=== PATIENT | male | born 1970 | race Caucasian/White ===

== ENCOUNTER 2018-12-08 01:50 | Outpatient (CLI) | payer SELFPAY ==
--- NOTE | 2018-12-08 10:55 | PFT_ITS ---
DECEMBER 08, 2018 REQUESTING PROVIDER: Emma Tobias SPIROMETRY: Shows mild obstructive airways disease with no significant bronchodilator response. LUNG VOLUME: Shows no evidence of restriction. DIFFUSION CAPACITY: Elevated. AIRWAYS RESISTANCE: Elevated. IMPRESSION: Mild obstructive airways disease with no significant bronchodilator response. This is associated with elevated diffusion capacity. This constellation of findings can be seen in asthma. If the diagnosis of asthma is in question proceeding with Methacholine challenge testing may prove to be useful. This study was compared to 08/29/15. The patient has a 290 cc. improvement in FVC. FEV1 has improved by 150 cc.
[2018-12-08] MEDS: Inhaler, Assist Device 1 EACH MC (13:30)
[2018-12-08] MEDS: Albuterol HFA 18 GM 200 PUFF INH IH (13:30)
== END 2018-12-08 02:10 ==
PROVIDERS: PCP Physician Assistant Medical; Visit Provider Physician Assistant Medical
DX: R07.9 Chest pain, unspecified (principal); F17.210 Nicotine dependence, cigarettes, uncomplicated
CPT/HCPCS: 94060; 94150; 94726; 94729

== ENCOUNTER → 2020-03-13 16:25 | Outpatient (REF) | payer SELFPAY ==
[2020-03-13 20:25] LABS: Hemoglobin A1C 10.7 % (<5.7)
[2020-03-13 20:43] LABS: ALT 45 U/L (16-63); AST 29 U/L (15-37); Albumin 3.4 g/dL (3.4-5.0); Alkaline Phosphatase 73 U/L (46-116); Anion Gap 7.7 mmol/L (3-11); BUN 13 mg/dL (7-18); Bilirubin, Total 0.4 mg/dL (0.2-1.0); CO2 27.3 mmol/L (21.0-32.0); CREATININE 0.84 mg/dL (0.70-1.30); Calcium 8.5 mg/dL (8.5-10.1); Calculated LDL 92 mg/dL (<100); Chloride 99 mmol/L (98-107); Cholesterol 162 mg/dL (<200); Glucose 405 mg/dL (74-106); HDL Cholesterol 27 mg/dL (40-60); Potassium 4.2 mmol/L (3.5-5.1); Sodium 134 mmol/L (136-145); Total Protein 6.7 g/dL (6.4-8.2); Triglyceride 219 mg/dL (<150)
== END ==
LOC: NCHCN 16:25
PROVIDERS: PCP Physician Assistant Medical; Visit Provider Physician Assistant Medical
DX: E11.9 Type 2 diabetes mellitus without complications (principal)
CPT/HCPCS: 80053; 80061; 83036

== ENCOUNTER 2021-01-31 15:22 | Outpatient (REF) | payer OTHER, SELFPAY ==
[2021-01-31 16:23] LABS: Abs Immature Grans 0.07 10^3/uL (0.0-0.06); Absolute Basophil Count 0.09 10^3/uL (0.0-0.2); Absolute Eosinophil Count 0.27 10^3/uL (0.0-0.7); Absolute Lymphocyte Count 1.69 10^3/uL (1.2-3.4); Absolute Monocyte Count 0.63 10^3/uL (0.1-0.8); Absolute Neutrophil Count 6.93 10^3/uL (1.2-6.7); Basophils % 0.9; Eosinophils % 2.8; HCT 44.7 % (40.0-50.0); HGB 14.4 g/dL (13.5-17.5); Immature Grans % 0.7; Lymphocytes % 17.5; MCH 27.2 pg (27.0-33.0); MCHC 32.2 % (32.0-36.0); MCV 84.5 fL (80-95); MPV 10.6 fL (8.0-11.0); Monocytes % 6.5; Neutrophils % 71.6; Nucleated RBC 0 %; Platelet Count 207 10^3/uL (130-400); RBC 5.29 10^6/uL (4.36-5.78); RDW 13.2 % (11.8-14.1); RDW-SD 40.7 fL; WBC 9.68 10^3/uL (4.4-10.8)
[2021-01-31 16:32] LABS: ALT 22 U/L (16-63); AST 17 U/L (15-37); Albumin 3.2 g/dL (3.4-5.0); Alkaline Phosphatase 69 U/L (46-116); Anion Gap 6.2 mmol/L (3-11); BUN 18 mg/dL (7-18); Bilirubin, Total 0.4 mg/dL (0.2-1.0); CO2 28.8 mmol/L (21.0-32.0); CREATININE 0.8 mg/dL (0.70-1.30); Calcium 8.5 mg/dL (8.5-10.1); Chloride 101 mmol/L (98-107); Glucose 303 mg/dL (74-106); Potassium 4.6 mmol/L (3.5-5.1); Sodium 136 mmol/L (136-145); Total Protein 6.7 g/dL (6.4-8.2)
== END 2021-01-31 15:23 | disposition home or self-care (01) ==
LOC: NCHCN 15:22
PROVIDERS: PCP Physician Assistant Medical; Visit Provider Physician Assistant Medical
DX: R13.10 Dysphagia, unspecified (principal)
CPT/HCPCS: 80053; 85025

== ENCOUNTER 2021-06-03 09:29 | Outpatient (CLI) | payer MEDICAID, SELFPAY ==
[2021-06-03 09:43] LABS: CREATININE 0.8 mg/dL (0.70-1.30)
== END 2021-06-03 09:30 | disposition home or self-care (01) ==
LOC: LBO 09:36
PROVIDERS: PCP Physician Assistant Medical; Visit Provider Preventive Medicine Undersea and Hyperbaric Medicine
DX: C32.1 Malignant neoplasm of supraglottis (principal)
CPT/HCPCS: 36415; 82565

== ENCOUNTER 2021-08-13 14:50 | Outpatient (REF) | payer MEDICAID, SELFPAY ==
[2021-08-13 16:21] LABS: HCT 44.2 % (40.0-50.0); HGB 14.8 g/dL (13.5-17.5); MCH 28.2 pg (27.0-33.0); MCHC 33.5 % (32.0-36.0); MCV 84 fL (80-95); MPV 9.5 fL (8.0-11.0); Platelet Count 197 10^3/uL (130-400); RBC 5.24 10^6/uL (4.36-5.78); RDW 13.3 % (11.8-14.1); RDW-SD 40.9 fL; WBC 5.93 10^3/uL (4.4-10.8)
[2021-08-13 16:34] LABS: Hemoglobin A1C 7.2 % (<5.7)
[2021-08-13 17:24] LABS: ALT 24 U/L (16-63); AST 23 U/L (15-37); Albumin 3.5 g/dL (3.4-5.0); Alkaline Phosphatase 52 U/L (46-116); Anion Gap 6.5 mmol/L (3-11); BUN 8 mg/dL (7-18); Bilirubin, Total 0.4 mg/dL (0.2-1.0); CO2 29.5 mmol/L (21.0-32.0); CREATININE 0.9 mg/dL (0.70-1.30); Calcium 8.5 mg/dL (8.5-10.1); Chloride 99 mmol/L (98-107); Glucose 257 mg/dL (74-106); Potassium 3.8 mmol/L (3.5-5.1); Sodium 135 mmol/L (136-145); TSH (W/Ref FT4) 3.75 uIU/mL (0.36-3.74); Total Protein 7.8 g/dL (6.4-8.2)
== END 2021-08-13 14:51 | disposition home or self-care (01) ==
LOC: NCHCN 14:50
PROVIDERS: PCP Physician Assistant Medical; Visit Provider Physician Assistant Medical
DX: I10 Essential (primary) hypertension (principal); E11.9 Type 2 diabetes mellitus without complications
CPT/HCPCS: 80053; 85027; 83036; 84439; 84443

== ENCOUNTER 2021-09-29 15:23 | Outpatient (REF) | payer MEDICAID, SELFPAY ==
[2021-09-29 16:42] LABS: TSH (W/Ref FT4) 10.98 uIU/mL (0.36-3.74)
[2021-09-29 17:15] LABS: FREE T4 0.77 ng/dL (0.76-1.46)
== END 2021-09-29 15:24 | disposition home or self-care (01) ==
LOC: NCHCN 15:23
PROVIDERS: PCP Physician Assistant Medical; Visit Provider Physician Assistant Medical
DX: I10 Essential (primary) hypertension (principal); E11.9 Type 2 diabetes mellitus without complications
CPT/HCPCS: 84439; 84443

== ENCOUNTER 2021-10-27 18:10 | Outpatient (REF) | payer MEDICAID, SELFPAY ==
[2021-10-27 16:31] LABS: CREATININE 0.8 mg/dL (0.70-1.30); Estimated GFR 108.49 (mL/min/1.73m2)
== END 2021-10-27 18:11 | disposition home or self-care (01) ==
LOC: NCHCN 18:10
PROVIDERS: PCP Physician Assistant Medical; Visit Provider Preventive Medicine Undersea and Hyperbaric Medicine
DX: C32.1 Malignant neoplasm of supraglottis (principal)
CPT/HCPCS: 82565

== ENCOUNTER 2021-12-24 16:26 | Outpatient (REF) | payer MEDICAID, SELFPAY ==
[2021-12-24 15:14] LABS: Abs Immature Grans 0.06 10^3/uL (0.0-0.06); Absolute Basophil Count 0.07 10^3/uL (0.0-0.2); Absolute Eosinophil Count 0.29 10^3/uL (0.0-0.7); Absolute Lymphocyte Count 1.08 10^3/uL (1.2-3.4); Absolute Monocyte Count 0.52 10^3/uL (0.1-0.8); Absolute Neutrophil Count 4.77 10^3/uL (1.2-6.7); Eosinophils % 4.3; HCT 44.6 % (40.0-50.0); HGB 14.9 g/dL (13.5-17.5); Immature Grans % 0.9; Lymphocytes % 15.9; MCHC 33.4 % (32.0-36.0); MCV 84 fL (80-95); MPV 9.7 fL (8.0-11.0); Monocytes % 7.7; Neutrophils % 70.2; Platelet Count 213 10^3/uL (130-400); RBC 5.32 10^6/uL (4.36-5.78); RDW 13.2 % (11.8-14.1); RDW-SD 40.7 fL; WBC 6.79 10^3/uL (4.4-10.8)
[2021-12-24 15:52] LABS: ALT 32 U/L (16-63); AST 20 U/L (15-37); Albumin 3.6 g/dL (3.4-5.0); Alkaline Phosphatase 57 U/L (46-116); Anion Gap 6.2 mmol/L (3-11); BUN 17 mg/dL (7-18); Bilirubin, Total 0.4 mg/dL (0.2-1.0); CO2 29.8 mmol/L (21.0-32.0); CREATININE 0.8 mg/dL (0.70-1.30); Chloride 101 mmol/L (98-107); Estimated GFR 108.49 (mL/min/1.73m2); Glucose 200 mg/dL (74-106); Potassium 4.1 mmol/L (3.5-5.1); Sodium 137 mmol/L (136-145); TSH 7.35 uIU/mL (0.36-3.74)
== END 2021-12-24 16:27 | disposition home or self-care (01) ==
LOC: NCHCN 16:26
PROVIDERS: PCP Physician Assistant Medical; Visit Provider Physician Assistant Medical
DX: E03.9 Hypothyroidism, unspecified (principal); I10 Essential (primary) hypertension; C32.1 Malignant neoplasm of supraglottis
CPT/HCPCS: 80053; 84443; 85025

== ENCOUNTER → 2021-12-25 02:44 | Outpatient (CLI) | payer MEDICAID, SELFPAY ==
--- NOTE | 2021-12-25 | DI.RAD_ITS ---
Exam(s) XR KNEE LT 3V AP,LAT,ROSELINE EXAM: XR KNEE LT 3V AP,LAT,ROSELINE CLINICAL HISTORY: LT KNEE PAIN, M25.562. TECHNIQUE: 2D digital imaging was performed of the left knee. Three images were obtained. Merchant ,AP, lateral and PA tunnel views were obtained. COMPARISON: No exams were available for comparison FINDINGS: BONES: No acute fracture is present. No bony destructive lesion is seen. JOINTS: Tricompartment degenerative changes are seen with joint space narrowing and periarticular spu rring. The findings are most marked in the medial femoral tibial joint. No joint effusion is seen. SOFT TISSUE: Normal. IMPRESSION: Mild degenerative changes of the left knee. DATA REPOSITORY: RADIATION DOSE DELIVERED:
== END ==
PROVIDERS: PCP Physician Assistant Medical; Visit Provider Physician Assistant Medical
DX: M17.12 Unilateral primary osteoarthritis, left knee (principal)
CPT/HCPCS: 73562

== ENCOUNTER 2022-01-22 15:03 | Emergency (ER) | payer MEDICAID, SELFPAY ==
[2022-01-22 15:28] VITALS: BP 152/104; PULSE 97; TEMP 36.9; O2SAT 99
--- NOTE | 2022-01-22 18:30 | DI.CT_ITS ---
Exam(s) CT NECK W EXAM: CT NECK W CLINICAL HISTORY: Trach infection. TECHNIQUE: Imaging Protocol: Axial computed tomography images with coronal and sagittal reformatted images were created and reviewed. CONTRAST MATERIAL: Intravenous: Omnipaque 350 Contrast volume:100mL COMPARISON: No exams were available for comparison FINDINGS: Orbits and orbital soft tissues: Within normal limits. Visualized paranasal sinuses: There is mild mucosal thickening in the left sphenoid sinus, a few eth moid air cells and the left frontal sinus. The remaining visualized paranasal sinuses are clear. Th e left mastoid air cells are clear. There is fluid seen in several right mastoid air cells. Nasopharynx: Within normal limits. Oropharynx: Within normal limits. Hypopharynx: Within normal limits. Larynx: Status post laryngectomy. The supraglottic larynx is severely narrowed and 5th with thicken ed soft tissue. Retropharyngeal space: Within normal limits. Parotids/submandibular: Within normal limits. Thyroid gland: The thyroid gland is not visualized. Lymphadenopathy: There is scattered lymph nodes seen along the level one to level three all measurin g less than 8 mm in short axis diameter which are physiologic in nature. Trachea: Within normal limits. Lung apices: Within normal limits. Bones: Within normal limits for the patient's age. Carotids/Jugular: Within normal limits. Atherosclerosis is present. Soft tissues: No focal fluid collection is seen to suggest an abscess. There is edema seen in the soft tissues around the stoma. No focal fluid collection is seen. IMPRESSION: 1. Postsurgical changes in the neck. The tracheostomy tube has been removed. There is a infiltratio n in the soft tissues around the stoma without a focal fluid collection to suggest an abscess. This may represent cellulitis. 2. Severe narrowing of the supraglottic larynx. The soft tissue appears thickened around the region. Inflammation/infection should be considered. RADIATION DOSE DELIVERED: 549.04mGy.cm Total DLP 549.04mGy.cm Total DLP DATA REPOSITORY: All CT scans at this facility are submitted to the National Radiology Data Registry (NRDR) Dose Index Registry (DIR) with the [employer] (A[employer]). RADIATION OPTIMIZATION: All CT scans at this facility use at least one of these dose optimization te chniques: automated exposure control; mA and/or kV adjustment per patient size (includes targeted exa ms where dose is matched to clinical indication); or iterative reconstruction.
--- NOTE | 2022-01-22 18:30 | DI.RAD_ITS ---
Exam(s) XR CHEST 2V PA LATERAL EXAM: XR CHEST 2V PA LATERAL CLINICAL HISTORY: cough TECHNIQUE: 2D digital imaging was performed of the chest. Two images were obtained. PA and lateral views were obtained. COMPARISON: No exams were available for comparison FINDINGS: MEDIASTINUM: Normal. HEART: Normal. PULMONARY VASCULATURE: Normal. LUNGS: Clear. PLEURAL SPACE: No pleural effusion or pneumothorax. BONE:Within normal limits for the patient's age. OTHER FINDINGS:Normal. IMPRESSION: No acute pulmonary findings. DATA REPOSITORY: RADIATION DOSE DELIVERED:
[2022-01-22 19:41] LABS: Abs Immature Grans 0.07 10^3/uL (0.0-0.06); Absolute Basophil Count 0.08 10^3/uL (0.0-0.2); Absolute Eosinophil Count 0.32 10^3/uL (0.0-0.7); Absolute Lymphocyte Count 1.11 10^3/uL (1.2-3.4); Absolute Monocyte Count 0.51 10^3/uL (0.1-0.8); Absolute Neutrophil Count 5.03 10^3/uL (1.2-6.7); Basophils % 1.1; Eosinophils % 4.5; HCT 45.4 % (40.0-50.0); Lymphocytes % 15.6; MCH 27.9 pg (27.0-33.0); MCV 85 fL (80-95); MPV 9.2 fL (8.0-11.0); Monocytes % 7.2; Neutrophils % 70.6; Platelet Count 214 10^3/uL (130-400); RBC 5.37 10^6/uL (4.36-5.78); RDW 13.2 % (11.8-14.1); RDW-SD 40.6 fL; WBC 7.12 10^3/uL (4.4-10.8)
[2022-01-22 19:56] LABS: ALT 37 U/L (16-63); AST 28 U/L (15-37); Albumin 3.8 g/dL (3.4-5.0); Alkaline Phosphatase 52 U/L (46-116); Anion Gap 5.9 mmol/L (3-11); BUN 12 mg/dL (7-18); Bilirubin, Total 0.7 mg/dL (0.2-1.0); CO2 34.1 mmol/L (21.0-32.0); CREATININE 0.9 mg/dL (0.70-1.30); Calcium 8.5 mg/dL (8.5-10.1); Chloride 98 mmol/L (98-107); Glucose 157 mg/dL (74-106); Magnesium 1.9 mg/dL (1.8-2.4); Potassium 3.8 mmol/L (3.5-5.1); Sodium 138 mmol/L (136-145); Total Protein 8.3 g/dL (6.4-8.2)
[2022-01-22] MEDS: Omnipaque 350 MG/ML 100 ML BTL IJ (19:57)
[2022-01-22] MEDS: Normal Saline - Diluent 50 ML VIAL IJ (19:58)
[2022-01-22 20:02] LABS: COVID-19 PCR Negative (Negative); Influenza A PCR Negative (Negative); Influenza B PCR Negative (Negative); RSV PCR Negative (Negative)
[2022-01-22 20:11] LABS: Source Nasopharynx
--- NOTE | 2022-01-22 20:18 | DI.VRAD_ITS ---
PROCEDURE INFORMATION: Exam: XR Chest Exam date and time: 01/22/2022 7:58 PM Age: 51 years old Clinical indication: Cough TECHNIQUE: Imaging protocol: Radiologic exam of the chest. Views: 2 views. COMPARISON: CT NECK W 01/22/2022 7:54 PM FINDINGS: Lungs: Unremarkable. No consolidation. Pleural spaces: Unremarkable. No pleural effusion. No pneumothorax. Heart/Mediastinum: Unremarkable. No cardiomegaly. Bones/joints: Unremarkable. IMPRESSION: No acute findings. Dictated and Authenticated by: Lawrence Oseguera MD. Ordering:PJ Waters MD
--- NOTE | 2022-01-22 20:19 | DI.VRAD_ITS ---
PROCEDURE INFORMATION: Exam: CT Neck With Contrast Exam date and time: 01/22/2022 7:54 PM Age: 51 years old Clinical indication: Other: Trach infection; Prior surgery; Surgery date: 6+ months TECHNIQUE: Imaging protocol: Computed tomography of the neck with contrast. Radiation optimization: All CT scans at this facility use at least one of these dose optimization techniques: automated exposure control; mA and/or kV adjustment per patient size (includes targeted exams where dose is matched to clinical indication); or iterative reconstruction. Contrast material: OMNI 350; Contrast volume: 100 ml; Contrast route: INTRAVENOUS (IV); COMPARISON: No relevant prior studies available. FINDINGS: Pharynx: No significant tonsillar enlargement. Larynx: Supraglottic larynx is severely narrowed and thickened. Epiglottis not well visualized Prevertebral and retropharyngeal spaces: Small retropharyngeal edema versus fluid Salivary glands: Normal. Glands are normal in size. Thyroid: Normal. No enlarged or calcified nodules. Lymph nodes: Unremarkable. No lymphadenopathy. Trachea: Stoma appears grossly patent with abnormal thickening along the superior anterior margin extending posteriorly Lungs: Unremarkable as visualized. Bones/joints: Unremarkable. No acute fracture. Soft tissues: Unremarkable. No significant soft tissue swelling. IMPRESSION: Status post tracheostomy tube removal with infiltration/cellulitis involving the anterior superior soft tissues extending posteriorly. Small edema versus fluid in the retropharyngeal space. Developing retropharyngeal abscess can not be completely excluded Supraglottic larynx limited in evaluation as described Dictated and Authenticated by: Lawrence Oseguera MD. Ordering:PJ Waters MD
[2022-01-22] MEDS: Normal Saline 1,000 ML 1000 ML IV (20:27)
[2022-01-22] MEDS: Ketorolac 15 MG/ML VIAL IVP (20:28)
[2022-01-22 22:33] LABS: ESR 36 mm/hr (0-15)
[2022-01-22] MEDS: levoFLOXacin 750 MG/150 ML BAG 100 MG IVPB (22:44)
--- NOTE | 2022-01-22 22:52 | ED.GENADUL_ITS ---
Discharge Plan Disposition Patient Disposition: Home Condition: Stable Discharge Details Clinical Impression: Infection of tracheostomy stoma Primary Care Provider: Weston Tobias ED Provider: Jt Ross Home Meds and New Rx's Prescriptions: Continued acetaminophen 325 mg capsule 650 mg PO Q6H PRN metformin 1,000 mg tablet 1,000 mg PO BID lisinopril 20 mg tablet 20 mg PO DAILY gabapentin [Neurontin] 300 mg capsule 300 mg PO TID levothyroxine [Synthroid] 88 mcg tablet 88 mcg PO DAILY Discharge Instructions Instructions: Cellulitis (ED) Additional Instructions: Please closely monitor your symptoms and if you have any significant worsening of your condition return immediately to the emergency department for reassessment. Otherwise take your antibiotic and normal prescribed medications. [facility] will contact you for follow-up with you at the ENT office for reassessment of your infection. Referrals: [facility] [Outside] Discharge Data Discharge Date/Time-TO BE ENTERED AT DEPARTURE: 01/23/22 00:38 Medical Decision Making Patient presenting to the emergency department for chief complaint of stoma site infection. He states over the past 5 days he has started noticing redness and irritation and also starting to have a productive cough. He does state some radiating pain up the left side of his face into his roman catholic and forehead. He associates this more with the stoma infection than secondary findings. Physical exam shows an erythematous stoma with slight mucus noted on the edges. No severe erosion of the site, patient has no nuchal rigidity, HEENT exam is otherwise unremarkable along with neurological exam. We will plan on checking labs, chest x-ray, COVID flu RSV, and CT of the neck. Reviewed CBC and patient has no significant leukocytosis or shift, CMP he is also unremarkable overall but glucose is 157 which I am not concerned with, COVID flu RSV is negative. I did perform ESR due to patient stating pain to the temporal region result was 36 which I feel is reassuring and doubt temporal arteritis. chest x-ray shows no acute findings CT of the neck is concerning for surrounding cellulitis involving the anterior superior tissues but also some extension posterior. There is small edema versus fluid in the retropharyngeal space. Radiologist did mention possible retropharyngeal abscess that cannot be completely excluded. Did consult with [facility] ENT provider. Upon discussion of case with them we agreed upon plan of care for patient to receive initial dose of Levaquin in the emergency department and be placed up on Levaquin outpatient. Patient will follow-up with their clinic and have low threshold to return the emergency department for new or worsening symptoms. After discussion of diagnosis and plan of care patient has no further needs, questions, or concerns and states clear understanding to return to the emergency department for any worsening symptoms. This documentation was generated using [employer] dictation system, please disregard any oddities of phrase or misspellings. Sign Out No HPI General Mode of arrival: ambulatory . Date/Time Provider Initiated Documentation: 01/22/22 16:21 . Limitations to Documentation: no limitations . Information obtained by: patient, family and RN notes reviewed . History of Present Illness 51 year old M presents to the emergency department with the chief complaint of neck infection , described as moderate and similar to prior episodes, Quality is described as aching, and is localized to the neck. Patient started experiencing this day(s) (5) and it has been constant. No relieving factors improve symptom(s), No exacerbating factors reported . Patient notes headaches. Patient did receive the following treatments prior to arrival, none Related Data Home Medications Medication Instructions Recorded Confirmed acetaminophen 325 mg capsule 650 mg PO Q6H PRN 12/31/21 01/22/22 gabapentin 300 mg capsule 300 mg PO TID 12/31/21 01/22/22 (Neurontin) levothyroxine 88 mcg tablet 88 mcg PO DAILY 12/31/21 01/22/22 (Synthroid) lisinopril 20 mg tablet 20 mg PO DAILY 12/31/21 01/22/22 metformin 1,000 mg tablet 1,000 mg PO BID 12/31/21 01/22/22 Allergies Allergy/AdvReac Type Severity Reaction Status Date / Time No Known Allergies Allergy Verified 01/22/22 18:17 General Stated Complaint: GenMedical MARV: 4 Review of Systems Constitutional Constitutional: Denies chills, Denies fever(s), Reports headache(s) and Reports malaise Eyes Eyes: Reports blurry vision ENT Ears, Nose, Mouth, and Throat: Reports as per HPI, Reports headache(s), Denies nasal congestion, Reports neck pain and Denies sore throat Cardiovascular Cardiovascular: Denies chest pain and Denies dyspnea Respiratory Respiratory: Reports cough and Denies dyspnea Gastrointestinal Gastrointestinal: Reports system reviewed and no additional complaints, except as documented Genitourinary Genitourinary: Reports system reviewed and no additional complaints, except as documented Musculoskeletal Musculoskeletal: Reports neck pain Integumentary/Breasts Skin/Breast: Reports erythema Neurologic Neurologic: Reports headache(s) PFSH All Active Problems (Updated 01/22/22 @ 23:05 by Jt Ross NP) Infection of tracheostomy stoma (Acute) Medical History Chest pain Diabetes mellitus HTN (hypertension) Hypothyroidism Laryngeal cancer Morbid obesity LARON (obstructive sleep apnea) Tobacco use Social History Smoking risk assessment performed?: No Do you feel safe at home: Yes Do you feel safe in your relationship?: Yes Exam Const General: cooperative, no acute distress and well groomed Orientation: alert, awake and oriented x3 HENMT Head: normal to inspection Ears: hearing grossly normal bilaterally and TM's normal bilaterally Mouth: oral mucosae normal and moist mucous membranes Throat: posterior oropharynx normal Eyes Visual Holt: normal visual holt by confrontation Alignment and Position: alignment normal Periorbital: periorbital findings normal Eyelids: eyelids normal Sclera: sclerae normal Cornea: corneas normal Pupils: PERRL EOM: EOM intact bilaterally Neck Neck: full ROM, no meningeal signs, trachea midline and other (Stoma present with erythema surrounding and mild drainage) Resp Effort & Inspection: normal respiratory effort Auscultation: clear to auscultation bilaterally Cardio Rate: regular rate Rhythm: regular rhythm Heart Sounds: S1 normal and S2 normal Neuro General: patient alert, patient awake, patient oriented x3, gait normal, tone normal, moves all extremities, CN's II-XI intact bilaterally and not confused Cognition: normal cognition Motor: muscle tone normal throughout, strength 5/5 throughout, no movement abnormalities noted and no fasciculations Sensory Exam: no sensory deficits noted Course Vital Signs Vital signs: Vital Signs Temperature 36.9 C 01/22/22 15:28 Pulse 97 H 01/22/22 15:28 Blood Pressure 152/104 H 01/22/22 15:28 Pulse Oximetry 99 01/22/22 15:28 Temperature 36.9 C 01/22/22 15:28 Pulse 97 H 01/22/22 15:28 Blood Pressure 152/104 H 01/22/22 15:28 Blood Pressure Position Sitting 01/22/22 15:28 Pulse Oximetry 99 01/22/22 15:28 Oxygen Delivery Method Room Air 01/22/22 15:28 Oxygen Flow Rate 0 01/22/22 15:28 Pain Level 8 01/22/22 15:28 Lab/Test Results Lab/Test Results: 01/22/22 20:57 Blood Blood Culture - Pending 01/22/22 19:30 Blood Blood Culture - Pending Laboratory Tests Range/Units 01/22/22 01/22/22 01/22/22 19:15 19:30 19:30 WBC (4.4-10.8) 10^3/uL 7.12 RBC (4.36-5.78) 10^6/uL 5.37 Hgb (13.5-17.5) g/dL 15.0 Hct (40.0-50.0) % 45.4 MCV (80-95) fL 85 MCH (27.0-33.0) pg 27.9 MCHC (32.0-36.0) % 33.0 RDW (11.8-14.1) % 13.2 Plt Count (130-400) 10^3/uL 214 MPV (8.0-11.0) fL 9.2 Immature Gran % 1.0 Neutrophils % 70.6 Lymphocytes % 15.6 Monocytes % 7.2 Eosinophils % 4.5 Basophils % 1.1 Nucleated RBC % (0.0-0.3) % 0.0 Absolute Neutrophils (1.2-6.7) 10^3/uL 5.03 Absolute Lymphocytes (1.2-3.4) 10^3/uL 1.11 L Absolute Monocytes (0.1-0.8) 10^3/uL 0.51 Absolute Eosinophils (0.0-0.7) 10^3/uL 0.32 Absolute Basophils (0.0-0.2) 10^3/uL 0.08 ESR (0-15) mm/hr Sodium (136-145) mmol/L 138 Potassium (3.5-5.1) mmol/L 3.8 Chloride (98-107) mmol/L 98 Carbon Dioxide (21.0-32.0) mmol/L 34.1 H Anion Gap (3-11) mmol/L 5.9 BUN (7-18) mg/dL 12 Creatinine (0.70-1.30) mg/dL 0.9 Est GFR (CKD-EPI 2020) (mL/min/1.73m2) 104.70 Glucose (74-106) mg/dL 157 H Calcium (8.5-10.1) mg/dL 8.5 Magnesium (1.8-2.4) mg/dL 1.9 Total Bilirubin (0.2-1.0) mg/dL 0.7 AST (15-37) U/L 28 ALT (16-63) U/L 37 Alkaline Phosphatase (46-116) U/L 52 Total Protein (6.4-8.2) g/dL 8.3 H Albumin (3.4-5.0) g/dL 3.8 COVID-19 Source Nasopharynx SARS-CoV-2 (PCR) (Negative) Negative Influenza Type A (PCR) (Negative) Negative Influenza Type B (PCR) (Negative) Negative RSV (PCR) (Negative) Negative Range/Units 01/22/22 19:30 WBC (4.4-10.8) 10^3/uL RBC (4.36-5.78) 10^6/uL Hgb (13.5-17.5) g/dL Hct (40.0-50.0) % MCV (80-95) fL MCH (27.0-33.0) pg MCHC (32.0-36.0) % RDW (11.8-14.1) % Plt Count (130-400) 10^3/uL MPV (8.0-11.0) fL Immature Gran % Neutrophils % Lymphocytes % Monocytes % Eosinophils % Basophils % Nucleated RBC % (0.0-0.3) % Absolute Neutrophils (1.2-6.7) 10^3/uL Absolute Lymphocytes (1.2-3.4) 10^3/uL Absolute Monocytes (0.1-0.8) 10^3/uL Absolute Eosinophils (0.0-0.7) 10^3/uL Absolute Basophils (0.0-0.2) 10^3/uL ESR (0-15) mm/hr 36 H Sodium (136-145) mmol/L Potassium (3.5-5.1) mmol/L Chloride (98-107) mmol/L Carbon Dioxide (21.0-32.0) mmol/L Anion Gap (3-11) mmol/L BUN (7-18) mg/dL Creatinine (0.70-1.30) mg/dL Est GFR (CKD-EPI 2020) (mL/min/1.73m2) Glucose (74-106) mg/dL Calcium (8.5-10.1) mg/dL Magnesium (1.8-2.4) mg/dL Total Bilirubin (0.2-1.0) mg/dL AST (15-37) U/L ALT (16-63) U/L Alkaline Phosphatase (46-116) U/L Total Protein (6.4-8.2) g/dL Albumin (3.4-5.0) g/dL COVID-19 Source SARS-CoV-2 (PCR) (Negative) Influenza Type A (PCR) (Negative) Influenza Type B (PCR) (Negative) RSV (PCR) (Negative)
== END 2022-01-23 00:38 | disposition home or self-care (01) ==
PROVIDERS: Emergency Provider Nurse Practitioner Family; PCP Physician Assistant Medical
DX: J95.02 Infection of tracheostomy stoma (principal); L53.9 Erythematous condition, unspecified; E11.9 Type 2 diabetes mellitus without complications; I10 Essential (primary) hypertension; Z20.822 Contact with and (suspected) exposure to COVID-19; Z79.84 Long term (current) use of oral hypoglycemic drugs
CPT/HCPCS: 70491; 80053; 85652; 87040; 87637; 96361; 96365; 96375; 99285; 71046; 83735; 85025; 99284; J1885; J1956; J3490

== ENCOUNTER 2022-02-24 16:06 | Outpatient (REF) | payer MEDICAID, SELFPAY ==
[2022-02-24 20:14] LABS: Hemoglobin A1C 7.7 % (<5.7)
== END 2022-02-24 16:07 | disposition home or self-care (01) ==
LOC: NCHCN 16:06
PROVIDERS: PCP Physician Assistant Medical; Visit Provider Physician Assistant Medical
DX: E11.9 Type 2 diabetes mellitus without complications (principal); E03.9 Hypothyroidism, unspecified
CPT/HCPCS: 83036; 84443

== ENCOUNTER 2022-03-05 09:42 | Outpatient (REF) | payer MEDICAID, SELFPAY ==
[2022-03-05 15:29] LABS: Abs Immature Grans 0.06 10^3/uL (0.0-0.06); Absolute Basophil Count 0.07 10^3/uL (0.0-0.2); Absolute Eosinophil Count 0.25 10^3/uL (0.0-0.7); Absolute Lymphocyte Count 1.02 10^3/uL (1.2-3.4); Absolute Monocyte Count 0.34 10^3/uL (0.1-0.8); Absolute Neutrophil Count 4.01 10^3/uL (1.2-6.7); Basophils % 1.2; Eosinophils % 4.3; HCT 40.2 % (40.0-50.0); HGB 13.3 g/dL (13.5-17.5); Lymphocytes % 17.7; MCH 28.5 pg (27.0-33.0); MCHC 33.1 % (32.0-36.0); MCV 86 fL (80-95); MPV 9.9 fL (8.0-11.0); Monocytes % 5.9; Neutrophils % 69.9; Platelet Count 206 10^3/uL (130-400); RBC 4.67 10^6/uL (4.36-5.78); RDW 13.2 % (11.8-14.1); WBC 5.75 10^3/uL (4.4-10.8)
[2022-03-05 15:32] LABS: ESR 26 mm/hr (0-15)
[2022-03-05 15:45] LABS: C-Reactive Protein 0.37 mg/dL (0.0-0.3)
== END 2022-03-05 09:43 | disposition home or self-care (01) ==
LOC: NCHCN 09:42
PROVIDERS: PCP Physician Assistant Medical; Visit Provider Physician Assistant Medical
DX: L03.818 Cellulitis of other sites (principal)
CPT/HCPCS: 85652; 85025; 86140

== ENCOUNTER 2022-04-02 00:11 | Outpatient (CLI) | payer MEDICAID, SELFPAY ==
--- NOTE | 2022-04-02 | DI.MRI_ITS ---
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 COMPARISON: MR MR BRAIN WO/W from 04/02/2022 FINDINGS: ORBITS: The anterior and posterior chambers of the globes are intact. The retrobulbar fat is unremark able. Extraocular muscles are unremarkable. OPTIC NERVES: The intracranial and extracranial portions of the optic nerves are within normal limits . Optic chiasm is within normal limits. No MRI evidence of optic neuritis identified. OTHER: Lacrimal glands unremarkable. PITUITARY GLAND: Not enlarged. Indeed the pituitary gland appears somewhat confined to the floor of the sella which probably indicates an element of empty sella syndrome. There is no mass in the pitui tary and suprasellar cistern.. The infundibulum is midline. Cavernous sinuses unremarkable No aneurysms seen. Incidentally noted is a posterior communicating artery on the right side of the c [id number] which is the main supplier of the right posterior cerebral artery. Left posterior ce rebral artery arises in conventional fashion off the tip of the basilar artery. Incidentally noted is some mucosal thickening in the left frontoethmoidal recess. IMPRESSION: Unremarkable MRI of the orbits. The pituitary gland is noted to be confined to the floor of the sella turcica. This probably indicat es an element of empty sella syndrome. DATA REPOSITORY:
--- NOTE | 2022-04-02 | DI.MRI_ITS ---
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 Both noninfused and contrast i nfused sequences were performed. IV Contrast injected was 20 cc Dotarem. COMPARISON: No exams were available for comparison FINDINGS: CEREBRAL PARENCHYMA: No evidence of intracranial hemorrhage, mass effect nor shift of midline structu re. No extraaxial fluid collections. Ventricles are not enlarged nor shifted. There is no significant focal signal abnormality in the cerebellar hemispheres nor within the tita, m idbrain, and thalami. There are multiple sub cm FLAIR bright white matter foci in the periventricular and subcortical white matter, these not associated with hemorrhage nor surrounding edema nor enhancement following contras t injection and are unlikely to be metastatic. There are no ring enhancing lesions in the brain and there is no abnormal meningeal enhancement, focal nor diffuse. DWI: No areas of restricted diffusion to suggest acute ischemic event. SWI: No microhemorrhages evident. PITUITARY GLAND: No mass nor parasellar abnormality. No obvious abnormality in the cavernous sinuses. FLOW VOIDS: The expected flow void are noted. No evidence of obvious aneurysm nor obvious vascular ma lformation. PARANASAL SINUSES: Some mucosal thickening noted at the left fronto ethmoidal recess. ORBITS: See separate dedicated orbit MRI report. IMPRESSION: 1. No evidence of ring-enhancing lesions nor meningeal enhancement to suggest intracranial metastatic disease. 2. Multiple foci of nonspecific signal abnormality in the white matter bilaterally but not associated with hemorrhage or surrounding edema nor enhancement and are probably related to chronic ischemic ch anges and not metastatic disease. 3. This patient also had dedicated MRI of the orbits today. Please see that separate report. DATA REPOSITORY:
[2022-04-02] MEDS: Gadoterate meglumine 20 ML VIAL IVP (10:03)
[2022-04-02] MEDS: Normal Saline Flush 10 ML SYR IVP (10:04)
--- NOTE | 2022-04-02 15:49 | DI.VRAD_ITS ---
PROCEDURE INFORMATION: Exam: MR Orbit Without and With Contrast Exam date and time: 04/02/2022 9:04 AM Age: 51 years old Clinical indication: Other: Visual complaint h53.9 laryngeal cancer c32.1 TECHNIQUE: Imaging protocol: MR Orbit was performed without and with contrast. Contrast material: DOTAREM; Contrast volume: 20 ml; Contrast route: INTRAVENOUS (IV); COMPARISON: CT NECK W 01/22/2022 7:54 PM FINDINGS: Orbital cavities: Orbits are normal. Globes are unremarkable. Paranasal sinuses: Unremarkable. No air-fluid levels. Soft tissues: Unremarkable. IMPRESSION: Unremarkable orbits. Dictated and Authenticated by: Aurelio Bishop MD. Ordering:DMITRIY Ontiveros MD
== END 2022-04-02 00:31 ==
LOC: DI 00:11
PROVIDERS: PCP Physician Assistant Medical; Visit Provider Physician Assistant Medical
DX: C32.1 Malignant neoplasm of supraglottis (principal)
CPT/HCPCS: 70553; 70543

== ENCOUNTER 2023-03-03 15:53 | Outpatient (REF) | payer MEDICAID, SELFPAY ==
[2023-03-03 20:00] LABS: Abs Immature Grans 0.04 10^3/uL (0.0-0.06); Absolute Basophil Count 0.09 10^3/uL (0.0-0.2); Absolute Eosinophil Count 0.11 10^3/uL (0.0-0.7); Absolute Lymphocyte Count 1.49 10^3/uL (1.2-3.4); Absolute Monocyte Count 0.51 10^3/uL (0.1-0.8); Absolute Neutrophil Count 5.45 10^3/uL (1.2-6.7); Basophils % 1.2; Eosinophils % 1.4; HCT 44.5 % (40.0-50.0); HGB 14.8 g/dL (13.5-17.5); Immature Grans % 0.5; Lymphocytes % 19.4; MCH 27.6 pg (27.0-33.0); MCHC 33.3 % (32.0-36.0); MCV 83 fL (80-95); MPV 10.2 fL (8.0-11.0); Monocytes % 6.6; Neutrophils % 70.9; Platelet Count 282 10^3/uL (130-400); RBC 5.37 10^6/uL (4.36-5.78); RDW 14.1 % (11.8-14.1); RDW-SD 41.9 fL; WBC 7.69 10^3/uL (4.4-10.8)
[2023-03-03 20:21] LABS: ALT 25 U/L (16-63); AST 21 U/L (15-37); Albumin 3.9 g/dL (3.4-5.0); Alkaline Phosphatase 54 U/L (46-116); Anion Gap 6.9 mmol/L (3-11); BUN 16 mg/dL (7-18); Bilirubin, Total 0.7 mg/dL (0.2-1.0); CO2 30.1 mmol/L (21.0-32.0); Calcium 8.8 mg/dL (8.5-10.1); Calculated LDL 16 mg/dL (<100); Chloride 99 mmol/L (98-107); Cholesterol 81 mg/dL (<200); Estimated GFR 91.69 (mL/min/1.73m2); Glucose 147 mg/dL (74-106); HDL Cholesterol 35 mg/dL (40-60); Potassium 3.4 mmol/L (3.5-5.1); Sodium 136 mmol/L (136-145); TSH 5.06 uIU/mL (0.36-3.74); Total Protein 8.1 g/dL (6.4-8.2); Triglyceride 154 mg/dL (<150)
--- OUTSIDE RECORDS SUMMARY | 2023-03-05 10:44 | XMS_ITS | Continuity of Care Document ---
Author Name [facility] Address [address] [place] [address] Encounter LTTL_SD FIN NBR [id number] Date(s): 10/03/22 - 11/28/22 [facility] [address] [place] [address] [place] Encounter Diagnosis Hypertension(Discharge Diagnosis) - 10/05/22 Diabetes(Discharge Diagnosis) - 10/05/22 Stroke(Discharge Diagnosis) - 10/05/22 Morbid obesity(Discharge Diagnosis) - 11/15/22 C. difficile colitis(Discharge Diagnosis) - 11/15/22 Acute ischemic stroke(Discharge Diagnosis) - 11/28/22 Discharge Disposition: Home w/ Home Health Care Attending Physician: Asad Troncoso MD Admitting Physician: Asad Troncoso MD Referring Physician: Asad Troncoso MD Allergies, Adverse Reactions, Alerts No Known Medication Allergies Functional Status 11/28/22 Breakfast Percent 100 11/27/22 Personal Care Provided Linen change, Helen care, Other: changed underwear 11/27/22 Activity Status ADL Up to chair 11/27/22 Lunch Percent 100 11/25/22 Dinner Percent 100 11/12/22 ADLs Minimal assistance Assistive Device Cane 11/10/22 Time Dangled at Bedside 1 Time Up in Chair 15 Ambulation Minutes 6 11/09/22 Orthopedic/Preventive Devices Splint, Other: Left forearm/wrist 10/30/22 Living Environment Home Environment *ADL: Independent Performed By: IRISH Rosa 10/05/2022 *Cognitive-Communication Skills: Independent Performed By: IRISH Rosa 10/05/2022 *Instrumental ADL: Independent Performed By: IRISH Rosa 10/05/2022 *Mobility: Independent Performed By: IRISH Rosa 10/05/2022 Lives In: Mobile home Performed By: IRISH Rosa 10/05/2022 Lives With: Alone Performed By: IRISH Rosa 10/05/2022 Living Situation: Home independently, care home facility Performed By: IRISH Rosa 10/05/2022 Number of Stairs Inside: 0 Performed By: IRISH Rosa 10/05/2022 Number of Stairs Outside: 2 Performed By: IRISH Rosa 10/05/2022 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, 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, 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, 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, Laundry, Leisure/Play/Hobbies, Manage Medications, Meal preparation, Personal ADL, Shopping, Social participation, Yard work Performed By: IRISH Rosa 10/05/2022 Lives In Mobile home Lives With Alone Living Situation Home independently, care home facility Patient's Responsibilities Rehab Communi mobility, 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, 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, 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, Laundry, Leisure/Play/Hobbies, Manage Medications, Meal preparation, Personal ADL, Shopping, Social participation, Yard work Number of Stairs Inside 0 Number of Stairs Outside 2 Prior ADL Status Independent Prior Mobility Status Independent Prior Instrumental ADL Level Independent Prior Cognitive-Communication Skills Ind ependent 10/13/22 Pressure Reducing Device for Bed Bariatr ic 10/06/22 Positioning/Pressure Reducing Devices Pi llow 10/03/22 Recent Travel History No recent travel Other exposure to Infectious Disease Non e 10/03/22 Home Barriers None Medications aspirin 81 mg oral capsule 81 mg =, Oral, Daily, # 30 cap, 0 Refill(s), Pharmacy: [id number], 183, cm, 10/03/22 12:35:00 EDT, Height/Length Dosing, 165.4, kg, 11/15/22 4:24:00 EDT, Weight Dosing Start Date: 11/28/22 Stop Date: 12/28/22 Status: Ordered atorvastatin 20 mg oral tablet 80 mg = 4 tab, Oral, every evening, # 120 tab, 0 Refill(s), Pharmacy: [id number], 183, cm, 10/03/22 12:35:00 EDT, Height/Length Dosing, 165.4, kg, 11/15/22 4:24:00 EDT, Weight Dosing Start Date: 11/28/22 Status: Ordered Brilinta (ticagrelor) 90 mg oral tablet 90 mg = 1 tab, Oral, BID, # 60 tab, 0 Refill(s), Pharmacy: [facility], 183, cm, 10/04/2311:35:00 EDT, Height/Length Dosing, 165.4, kg, 11/15/22 4:24:00 EDT, Weight Dosing Start Date: 11/28/22 Status: Ordered Glucometer Glucometer, Please provide glucometer that is covered by insurance Test blood glucose twice daily, Supply, See instructions, # 1 EA, 0 Refill(s), Pharmacy: [facility] Start Date: 11/28/22 Status: Ordered hydroCHLOROthiazide 25 mg oral tablet 25 mg = 1 tab, Oral, Daily, # 30 tab, 0 Refill(s), Pharmacy: [facility], 183, cm, 10/03/22 12:35:00 EDT, Height/Length Dosing, 165.4, kg, 11/15/22 4:24:00 EDT, Weight Dosing Start Date: 11/28/22 Status: Ordered levothyroxine 100 mcg (0.1 mg) oral tablet 100 mcg = 1 tab, Oral, Daily, TAKE 1 TABLET BY MOUTH ONCE DAILY, # 30 tab, 0 Refill(s), Pharmacy: [facility], 183, cm, 10/03/22 12:35:00 EDT, Height/Length Dosing, 165.4, kg, 11/15/22 4:24:00 EDT, Weight Dosing Start Date: 11/28/22 Status: Ordered metFORMIN 1000 mg oral tablet 1,000 mg = 1 tab, Oral, BID, TAKE 1 TABLET BY MOUTH TWICE DAILY, # 60 tab, 0 Refill(s), Pharmacy: [facility], 183, cm, 10/03/22 12:35:00 EDT, Height/Length Dosing, 165.4, kg, 11/15/22 4:24:00 EDT, Weight Dosing Start Date: 11/28/22 Status: Ordered NIFEdipine 30 mg oral tablet, extended release 60 mg = 2 cap, Oral, Daily, # 60 cap, 0 Refill(s), Pharmacy: [facility], 183, cm, 10/03/22 12:35:00 EDT, Height/Length Dosing, 165.4, kg, 11/15/22 4:24:00 EDT, Weight Dosing Start Date: 11/28/22 Status: Ordered Mental Status 11/23/22 Eye Opening Response Lincoln Spontaneous ly Best Verbal Response Lincoln Oriented Best Motor Response Lincoln Obeys comman ds Cuate Coma Score 15 Problem List Condition Confirmation Course Effective Dates Status Health St atus Informant Diabetes Confirmed Active Hypertension Confirmed Active Morbid obesity Confirmed Active Results Laboratory List Name Date Basic Metabolic Panel (BMP) 11/14/22 CBC w/ Diff 11/14/22 Magnesium Level 11/14/22 Automated Diff 11/14/22 GI Panel (BioFire) 11/13/22 Hgb A1c (Hemoglobin A1C) 11/05/22 Renal Function Panel 11/05/22 Glucose POCT 11/05/22 Glucose POCT 11/04/22 Glucose POCT 11/04/22 Basic Metabolic Panel (BMP) 10/20/22 CBC w/ Diff 10/20/22 Magnesium Level 10/20/22 Automated Diff 10/20/22 Automated Diff 10/17/22 CBC w/ Diff 10/17/22 PT/ INR 10/17/22 Most recent to oldest [Reference Range]: 1 2 3 WBC [4.8-10.8 K/mcL] 7.0 K/mcL (11/14/22 8:15 PM) 7.1 K/mcL (10/20/22 11:30 AM) 5.9 K/mcL (10/17/22 4:50 AM) RBC [4.20-6.10 Million/mcL] 4.56 Million /mcL (11/14/22 8:15 PM) 4.81 Million/mcL (10/20/22 11:30 AM) 4.55 Million/mcL (10/17/22 4:50 AM) Neutro Auto [42.2-75.2 %] 67.4 % (11/14/22 8:15 PM) 75.1 % (10/20/22 11:30 AM) 68.2 % (10/17/22 4:50 AM) Lymph Auto [20.5-51.1 %] 18.1 % *LOW* (11/14/22 8:15 PM) 14.2 % *LOW* (10/20/22 11:30 AM) 16.7 % *LOW* (10/17/22 4:50 AM) Rincon Auto [1.7-9.3 %] 6.7 % (11/14/22 8:15 PM) 5.9 % (10/20/22 11:30 AM) 7.5 % (10/17/22 4:50 AM) Basophil Auto [0.0-0.8 %] 1.3 % *HI* (11/14/22 8:15 PM) 0.8 % (10/20/22 11:30 AM) 1.4 % *HI* (10/17/22 4:50 AM) Prothrombin Time [9.1-10.6 seconds] 10.3 seconds (10/17/22 4:50 AM) INR [0.9-1.1] 1.0 1 (10/17/22 4:50 AM) BUN [8-26 mg/dL] 16 mg/dL (11/14/22 8:15 PM) 17 mg/dL (11/05/22 12:55 PM) 15 mg/dL (10/20/22 11:30 AM) Glucose POC 246 *NA* (11/05/22 7:37 AM) 194 *NA* (11/04/22 4:43 PM) 221 *NA* (11/04/22 11:11 AM) Glucose Level [74-106 mg/dL] 236 mg/dL *HI* (11/14/22 8:15 PM) 224 mg/dL *HI* (11/05/22 12:55 PM) 204 mg/dL *HI* (10/20/22 11:30 AM) Potassium Level [3.5-5.1 mmol/L] 3.7 mmol/L (11/14/22 8:15 PM) 3.7 mmol/L (11/05/22 12:55 PM) 4.2 mmol/L (10/20/22 11:30 AM) Baso Absolute [0.0-0.2 K/mcL] 0.1 K/mcL (11/14/22 8:15 PM) 0.1 K/mcL (10/20/22 11:30 AM) 0.1 K/mcL (10/17/22 4:50 AM) MCV [80.0-94.0 fL] 84.9 fL (11/14/22 8:15 PM) 86.5 fL (10/20/22 11:30 AM) 85.9 fL (10/17/22 4:50 AM) MCHC [32.0-36.0 g/dL] 33.9 g/dL (11/14/22 8:15 PM) 33.4 g/dL (10/20/22 11:30 AM) 33.0 g/dL (10/17/22 4:50 AM) Osmolality [275-295 mOsm/kg] 277 mOsm/kg (11/14/22 8:15 PM) 277 mOsm/kg (11/05/22 12:55 PM) 281 mOsm/kg (10/20/22 11:30 AM) Sodium Level [134-143 mmol/L] 134 mmol/L (11/14/22 8:15 PM) 134 mmol/L (11/05/22 12:55 PM) 137 mmol/L (10/20/22 11:30 AM) Lymph Absolute [1.2-3.4 K/mcL] 1.3 K/mcL (11/14/22 8:15 PM) 1.0 K/mcL *LOW* (10/20/22 11:30 AM) 1.0 K/mcL *LOW* (10/17/22 4:50 AM) Hct [42.0-52.0 %] 38.7 % *LOW* (11/14/22 8:15 PM) 41.6 % *LOW* (10/20/22 11:30 AM) 39.1 % *LOW* (10/17/22 4:50 AM) Calcium Level [8.9-10.3 mg/dL] 9.0 mg/dL (11/14/22 8:15 PM) 9.1 mg/dL (11/05/22 12:55 PM) 9.0 mg/dL (10/20/22 11:30 AM) Rincon Absolute [0.1-0.6 K/mcL] 0.5 K/mcL (11/14/22 8:15 PM) 0.4 K/mcL (10/20/22 11:30 AM) 0.4 K/mcL (10/17/22 4:50 AM) Phosphorus Level [2.5-4.9 mg/dL] 3.5 mg/dL (11/05/22 12:55 PM) Albumin Level [3.5-5.0 g/dL] 3.9 g/dL (11/05/22 12:55 PM) MCH [27.0-31.0 pg] 28.7 pg (11/14/22 8:15 PM) 28.9 pg (10/20/22 11:30 AM) 28.4 pg (10/17/22 4:50 AM) Magnesium Level [1.8-2.5 mg/dL] 1.7 mg/d L *LOW* (11/14/22 8:15 PM) 1.8 mg/dL (10/20/22 11:30 AM) Neutro Absolute [1.4-6.5 K/mcL] 4.7 K/mc L (11/14/22 8:15 PM) 5.3 K/mcL (10/20/22 11:30 AM) 4.0 K/mcL (10/17/22 4:50 AM) Hgb [14.0-18.0 g/dL] 13.1 g/dL *LOW* (11/14/22 8:15 PM) 13.9 g/dL *LOW* (10/20/22 11:30 AM) 12.9 g/dL *LOW* (10/17/22 4:50 AM) MPV [7.4-10.4 fL] 9.2 fL (11/14/22 8:15 PM) 9.4 fL (10/20/22 11:30 AM) 9.4 fL (10/17/22 4:50 AM) Platelets [130-400 K/mcL] 217 K/mcL (11/14/22 8:15 PM) 190 K/mcL (10/20/22 11:30 AM) 192 K/mcL (10/17/22 4:50 AM) CO2 [22-32 mmol/L] 28 mmol/L (11/14/22 8:15 PM) 31 mmol/L (11/05/22 12:55 PM) 27 mmol/L (10/20/22 11:30 AM) Eos Absolute [0.0-0.2 K/mcL] 0.4 K/mcL *HI* (11/14/22 8:15 PM) 0.2 K/mcL (10/20/22 11:30 AM) 0.3 K/mcL *HI* (10/17/22 4:50 AM) eAvg Glucose [70-105 mg/dL] 169 mg/dL *HI* (11/05/22 12:55 PM) Chloride Level [98-111 mmol/L] 97 mmol/L *LOW* (11/14/22 8:15 PM) 92 mmol/L *LOW* (11/05/22 12:55 PM) 100 mmol/L (10/20/22 11:30 AM) RDW-CV [11.5-14.5 %] 13.7 % (11/14/22 8:15 PM) 14.5 % (10/20/22 11:30 AM) 14.3 % (10/17/22 4:50 AM) Adenovirus F 40/41 GIP-BFire [Not Detected] Not Detected (11/13/22 6:55 PM) Astrovirus GIP-BFire [Not Detected] Not Detected (11/13/22 6:55 PM) Cyclospora cayetanensis GIP-BFire [Not Detected] Not Detected (11/13/22 6:55 PM) Clostridioides difficile tox in A/B -BFir [Not Detected] Detected *ABN* (11/13/22 6:55 PM) Campylobacter GIP-BFire [Not Detected] Not Detected (11/13/22 6:55 PM) Cryptosporidium GIP-BFire [N ot Detected] Not Detected (11/13/22 6:55 PM) E. coli O157 GIP-BFire [Not Detected] N/A (11/13/22 6:55 PM) Entamoeba histolytica GIP-BF carlos [Not Detected] Not Detected (11/13/22 6:55 PM) Enteroaggregative E. coli GIP-BFire [Not Detected] Not Detected (11/13/22 6:55 PM) Enteropathogenic E. coli GIP-BFire [Not Detected] Not Detected (11/13/22 6:55 PM) Enterotoxige E. coli LT/ST GIP-BFire [Not Detected] Not Detected (11/13/22 6:55 PM) Giardia lamblia GIP-BFire [N ot Detected] Not Detected (11/13/22 6:55 PM) Norovirus GI/GII GIP-BFire [ Not Detected] Not Detected (11/13/22 6:55 PM) Plesiomonas shigelloides GIP-BFire [Not Detected] Not Detected (11/13/22 6:55 PM) Rotavirus A GIP-BioF [Not Detected] Not Detected (11/13/22 6:55 PM) Salmonella GIP-BFire [Not Detected] Not Detected (11/13/22 6:55 PM) Sapovirus GIP-BFire Not Detected (11/13/22 6:55 PM) Shiga-toxin1/2-prod E.coli GIP-BFire [Not Detected] Not Detected (11/13/22 6:55 PM) Shigella/Enteroinv E. coli GIP-BFire [Not Detected] Not Detected (11/13/22 6:55 PM) Vibrio cholerae GIP-BFire [N ot Detected] Not Detected (11/13/22 6:55 PM) Vibrio species GIP-BFire [No t Detected] Not Detected (11/13/22 6:55 PM) Yersinia enterocolitica GIP-BFire [Not Detected] Not Detected (11/13/22 6:55 PM) BUN/Creat Ratio [8.0-20.0] 20.3 *HI* (11/14/22 8:15 PM) 21.2 *HI* (11/05/22 12:55 PM) 19.7 (10/20/22 11:30 AM) Imm Gran Absolute [0.00-0.02 K/mcL] 0.08 K/mcL *HI* (11/14/22 8:15 PM) Imm Gran Absolute 0.05 *NA* (10/20/22 11:30 AM) 0.05 *NA* (10/17/22 4:50 AM) Imm Gran Auto [0.0-0.5 %] 1.1 % *HI* (11/14/22 8:15 PM) 0.7 % *HI* (10/20/22 11:30 AM) 0.9 % *HI* (10/17/22 4:50 AM) Slide Review Not Indicated (11/14/22 8:15 PM) Hgb A1c Percent [4.0-6.0 %] 7.5 % *HI* (11/05/22 12:55 PM) .Hb 13.7 g/dL *NA* (11/05/22 12:55 PM) .Hgb A1c 0.8 g/dL *NA* (11/05/22 12:55 PM) Creatinine Level [0.61-1.24 mg/dL] 0.79 mg/dL (11/14/22 8:15 PM) 0.80 mg/dL (11/05/22 12:55 PM) 0.76 mg/dL (10/20/22 11:30 AM) Anion Gap [3.0-12.0] 9.0 (11/14/22 8:15 PM) 11.0 (11/05/22 12:55 PM) 10.0 (10/20/22 11:30 AM) Eos, Auto [0.00-3.00 %] 5.40 % *HI* (11/14/22 8:15 PM) 3.30 % *HI* (10/20/22 11:30 AM) 5.30 % *HI* (10/17/22 4:50 AM) eGFR CKD-EPI [>=60 mL/min/1. 73 m2] 108 mL/min/1.73 m2 (11/14/22 8:15 PM) 108 mL/min/1.73 m2 (11/05/22 12:55 PM) 110 mL/min/1.73 m2 (10/20/22 11:30 AM) 1Interpretive Data: THERAPEUTIC INR RANGES FOR WARFARIN Uncomplicated venous thromboembolic disease 2-3 Lupus Anticoagulant and recurrent thrombosis 3-3.5 Mechanical prosthetic valve or recurrent thrombosis 2.5-3.5 Vital Signs Most recent to oldest [Reference Range]: 1 2 3 Temperature Oral [35.8-37.3 Deg C] 36.4 Deg C (11/14/22 7:51 AM) 36.4 Deg C (11/13/22 8:44 AM) 36.5 Deg C (11/05/22 7:19 PM) Temperature Oral (DegF) [96.4-99.1 Deg F] 97.7 Deg F (11/05/22 7:19 PM) 98.42 Deg F (11/04/22 3:08 PM) Temperature Tympanic [36.6-37.9 Deg C] 35.5 Deg C *LOW* (11/26/22 8:33 PM) 36.3 Deg C *LOW* (10/03/22 12:28 PM) Temperature Temporal Artery [36-38 Deg C] 36.5 Deg C (11/28/22 7:25 AM) 36.1 Deg C (11/27/22 7:41 PM) 36.0 Deg C (11/27/22:15 AM) Temperature Temporal Artery (DegF) [97.3-100 Deg F] 97.7 Deg F (11/28/22 7:25 AM) 98.24 Deg F (11/22/22 8:00 AM) 96.8 Deg F *LOW* (11/11/22 7:37 PM) Peripheral Pulse Rate [60-100 bpm] 82 bpm (11/28/22 7:25 AM) 97 bpm (11/27/22 7:41 PM) 87 bpm (11/27/22 7:15 AM) Heart Rate Monitored [60-100 bpm] 75 bpm (11/15/22 8:57 AM) 87 bpm (11/14/22 7:51 AM) 79 bpm (11/13/22 8:44 AM) Respiratory Rate [12-24 br/min] 18 br/min (11/28/22 7:25 AM) 18 br/min (11/27/22 7:41 PM) 18 br/min (11/27/22 7:15 AM) Blood Pressure [90-140/60-90 mmHg] 161/98mmHg *HI* (11/28/22:25 AM) 153/88mmHg *HI* (11/27/22 7:41 PM) 128/106mmHg (11/26/22 7:14 AM) Mean Arterial Pressure, Cuff [65-140 mmHg] 119 mmHg (11/28/22 7:25 AM) 109 mmHg (11/22/22 8:00 AM) 96 mmHg (11/11/22 7:37 PM) Blood Pressure Invasive [90-140/60-90 mmHg] 153/95mmHg *HI* (11/27/22 7:15 AM) 151/94mmHg *HI* (11/26/22 8:33 PM) Mean Arterial Pressure, Invasive [65-140 mmHg] 113 mmHg (11/26/22 8:33 PM) Blood Pressure Location Right arm (11/25/22 8:30 PM) Right arm (11/24/22 7:30 PM) Right arm (11/23/22 8:48 AM) Blood Pressure Method Automatic (11/25/22 8:30 PM) Automatic (11/24/22 7:30 PM) Automatic (11/23/22 8:48 AM) Weight 165.9 kg (11/21/22 5:27 AM) 166 kg (11/14/22 5:42 AM) 166 kg (11/11/22 12:49 AM) Weight Measured (lbs) 364.865 lb (11/10/22 5:32 AM) 373.992 lb (11/08/22 5:32 AM) 368.392 lb (10/08/22 4:32 AM) Weight Dosing 165.4 kg (11/15/22 4:24 AM) 173.000 kg (10/03/22 12:28 PM) 173.000 kg (10/03/22 9:56 AM) Height 183 cm (10/21/22 6:36 AM) 183.000 cm (10/03/22 12:28 PM) 183.000 cm (10/03/22 12:26 PM) Height/Length Dosing 183.000 cm (10/03/22 12:28 PM) 183.000 cm (10/03/22 12:26 PM) 183.000 cm (10/03/22 9:56 AM) BSA Measured 2.93 m2 (10/21/22 6:36 AM) Body Mass Index 50.46 kg/m2 (10/21/22 6:36 AM) 51.660 kg/m2 (10/03/22 12:28 PM) 51.660 kg/m2 (10/03/22 9:56 AM) Social History Social History Type Response Tobacco Never tobacco user T obacco Use:. Sex Hospital Discharge Instructions Patient Education 11/28/2022 09:16:46 Ischemic Stroke, [id number] Ischemic Stroke An ischemic stroke happens when part of the brain does not get enough blood. This can cause a lifelong change in how the brain works. An ischemic stroke is an emergency. It must be treated right away. What are the causes? This condition is caused by lower blood flow to part of the brain. This may be due to: ??? A small clump, or clot, of blood. ??? A buildup of fatty substance (plaque) in the blood vessels. ??? An abnormal heart rhythm. ??? A blocked or damaged artery in the head or neck. ??? Infection. ??? Swelling of the arteries in the brain. Sometimes, the cause is not known. What increases the risk? Certain medical conditions, such as: ??? High blood pressure (hypertension). ??? Heart disease. ??? Diabetes. ??? High cholesterol. ??? Being very overweight. ??? Sleep problems (sleep apnea). Other risk factors that you can change include: ??? Smoking. ??? Not being active. ??? Heavy alcohol and drug use. ??? Taking control pills, especially if you smoke. Risk factors that you cannot change include: ??? Being older than age 60. ??? Having had blood clots, stroke, or mini-stroke (transient ischemic attack, TIA) before. ??? Having a family history of stroke. What are the signs or symptoms? Symptoms of a stroke usually happen all of a sudden. They can include: ??? Weakness or a loss of feeling in your face, arm, or leg, often on one side of the body. ??? Loss of balance or coordination. ??? Slurred speech. ??? Trouble talking or understanding what people say. ??? Seeing things blurry or seeing double of one thing. ??? Feeling dizzy or confused. ??? Feeling like you may vomit (nausea) or vomiting. ??? A very bad headache. If you can, write down the exact time you first had symptoms. Tell your doctor. If symptoms come and go, they could be caused by a mini-stroke. Get help right away, even if you feel better. How is this treated? You must get treatment as soon as you have stroke symptoms. Some treatments work better if they aredone within 3???6 hours of your first symptoms. You may get medicines that do these things: ??? Take out or break up the blood clot. ??? Control blood pressure. ??? Thin your blood. Other treatments may include: ??? Getting oxygen. ??? Getting fluids through an IV tube. ??? Procedures that make blood flow better. After a stroke, you may work with therapists to help you get better. Follow these instructions at home: Medicines ??? Take [id number] and prescription medicines only as told by your doctor. ??? If you were told to take a medicine to thin your blood, take it exactly as told. Take it at thesame time each day. ??? Taking too much of this medicine can cause bleeding. If you do not take enough medicine, it maynot work as well. ??? If your doctor did not prescribe medicines that have aspirin or NSAIDs, such as ibuprofen, talkto your doctor before you take any of these. ??? If you are taking a blood thinner: ??? Put pressure over any cuts that bleed for longer than normal. ??? Tell your dentist and other doctors that you take this medicine. ??? Avoid activities that could hurt or bruise you. ??? Wear a medical alert bracelet or carry a card that shows you are taking blood thinners. Eating and drinking ??? Follow instructions from your doctor about diet. ??? Eat healthy foods. ??? If you have trouble swallowing: ??? Take small bites when eating. ??? Eat foods that are soft or pureed. Safety ??? Follow instructions from your care team about physical activity. ??? Use a walker or cane as told by your doctor. ??? Keep your home safe so you do not fall. Take these steps: ??? Put grab bars in the bedroom and bathroom. ??? Use raised toilets and put a seat in the shower. ??? Get rid of clutter and things you could trip on, such as cords or rugs. General instructions ??? Do not smoke or use any products that contain nicotine or tobacco. If you need help quitting, ask your doctor. ??? If you drink alcohol: ??? Limit how much you have to: ??? 0???1 drink a day for women who are not . ??? 0???2 drinks a day for men. ??? Know how much alcohol is in your drink. In the [place] one drink equals one 12 oz bottle of beer (355 mL), one 5 oz glass of wine (148 mL), or one 1?? oz glass of hard liquor (44 mL). ??? Stay active. ??? Keep all follow-up visits. How is this prevented? You can lower your risk of another stroke by managing these conditions: ??? High blood pressure. ??? High cholesterol. ??? Diabetes. ??? Heart disease. ??? Sleep problems. ??? Being overweight. You can also lower your risk if you: ??? Quit smoking. ??? Limit alcohol. ??? Stay active. Your doctor will continue to help you with ways to prevent problems caused by a stroke. Get help right away if: You have any signs of a stroke. BE FAST is an easy way to remember the main warning signs: ??? B - Balance. Dizziness, sudden trouble walking, or loss of balance. ??? E - Eyes. Trouble seeing or a change in how you see. ??? F - Face. Sudden weakness or loss of feeling of the face. The face or eyelid may droop on one side. ??? A - Arms. Weakness or loss of feeling in an arm. This happens all of a sudden and most often onone side of the body. ??? S - Speech. Sudden trouble speaking, slurred speech, or trouble understanding what people say. ??? T - Time. Time to call emergency services. Write down what time symptoms started. You have other signs of a stroke, such as: ??? A sudden, very bad headache with no known cause. ??? Feeling like you may vomit. ??? Vomiting. ??? A seizure. These symptoms may be an emergency. Get help right away. Call your local emergency services ([facility] [place] ??? Do not wait to see if the symptoms will go away. ??? Do not drive yourself to the hospital. Summary ??? An ischemic stroke happens when the brain does not get enough blood. ??? Symptoms of a stroke often happen all of a sudden. ??? You must get treatment as soon as you have stroke symptoms. ??? Stroke is an emergency. It must be treated right away. This information is not intended to replace advice given to you by your health care provider. Make sure you discuss any questions you have with your health care provider. Document Revised: 09/11/2020 Document Reviewed: 09/11/2020 [employer] Patient Education ?? 2021 [employer]. Follow Up Care 10/03/2022 09:45:07 With:Ebony Ramirez MD Address: [facility] [address] [place] [address]- When:1 month With:Follow up with primary care provider Address: When:1 to 2 weeks Discharge instructions * Sarah Canchola: PERFORM Event Display: Discharge Instructions Authored Date: [id number] MELANY POP :1970 Age:52 years Sex:Male Visit Date:10/03/2022 Hospital Discharge Instructions We would like to thank you for allowing us to assist you with your healthcare needs. The following includes patient education materials and information regarding your injury/illness. Your Next Steps Follow Up Appointments Follow Up with??Follow up with primary care provider When:??Within 1 to 2 weeks Medications What How Much When Why Instructions Next Dose New atorvastatin (atorvastatin 20 mg oral tablet) 4 tab Oral (given by mouth) Every evening Pickup at [place] [address] New hydroCHLOROthiazide (hydroCHLOROthiazide 25 mg oral tablet) 1 tab Oral (given by mouth) Every day Pickup at [place] [address] New NIFEdipine (NIFEdipine 30 mg oral tablet, extended release) 2 Capsules Oral (given by mouth) Every day Stroke Diabetes Hypertension [facility] [place] [address] New ticagrelor (Brilinta (ticagrelor) 90 mg oral tablet) 1 tab Oral (given by mouth) 2 times a day [facility] at [place] [address] Changed aspirin (aspirin 81 mg oral capsule) 81 Milligrams Oral (given by mouth) Every day Acute ischemic stroke Morbid obesity Duration: 30 Days [facility] at [place] [address] Changed levothyroxine (levothyroxine 100 mcg (0.1 mg) oral tablet) 1 tab Oral (given by mouth) Every day TAKE 1 TABLET BY MOUTH ONCE DAILY ?? [facility] [place] [address] Changed metFORMIN (metFORMIN 1000 mg oral tablet) 1 tab Oral (given by mouth) 2 times a day TAKE 1 TABLET BY MOUTH TWICE DAILY ?? [facility] [place] [address] Pharmacy Information [place] [address]: [address] [place] [address] [phone] ?? What How Much When Why Comments Stop Taking amLODIPine (Norvasc 5 mg oral tablet) 1 tab Oral (given by mouth) Every day Acute ischemic stroke Morbid obesity Hypertension Stop Taking clopidogrel (Plavix 75 mg oral tablet) 1 tab Oral (given by mouth) Every day Stop Taking gabapentin (gabapentin 300 mg oral capsule) 1 Capsules Oral (given by mouth) 3 times a day TAKE 1 CAPSULE BY MOUTH THREE TIMES DAILY ?? Stop Taking lisinopril (lisinopril 20 mg oral tablet) 1 tab Oral (given by mouth) Every day TAKE 1 TABLET BY MOUTH ONCE DAILY ?? Your Summary Your Care Team Admitting Physician - Asad Troncoso MD Attending Physician - Asad Troncoso MD Referring Physician - Asad Troncoso MD Your Diagnosis Stroke Diabetes Hypertension Morbid obesity C. difficile colitis Acute ischemic stroke Problems Ongoing - Any problem that you are currently receiving treatment for. Diabetes Hypertension Morbid obesity Tests Performed/Pending Automated Diff BMP CBC w/ Diff GI Panel ([employer]) Glucose POCT Hemoglobin A1C Magnesium Level PT/ INR Renal Function Panel Discharge Vitals Temperature??(Temporal Artery) 97.7 ??F (36.5 ??C) Heart Rate??(Peripheral) 82 Respiratory Rate?? 18 Blood Pressure?? 161/98?? Allergies No Known Medication Allergies Education Materials Ischemic Stroke An ischemic stroke happens when part of the brain does not get enough blood. This can cause a lifelong change in how the brain works. An ischemic stroke is an emergency. It must be treated right away. What are the causes? This condition is caused by lower blood flow to part of the brain. This may be due to: ? A small clump, or clot, of blood. ? A buildup of fatty substance (plaque) in the blood vessels. ? An abnormal heart rhythm. ? A blocked or damaged artery in the head or neck. ? Infection. ? Swelling of the arteries in the brain. Sometimes, the cause is not known. What increases the risk? Certain medical conditions, such as: ? High blood pressure (hypertension). ? Heart disease. ? Diabetes. ? High cholesterol. ? Being very overweight. ? Sleep problems (sleep apnea). Other risk factors that you can change include: ? Smoking. ? Not being active. ? Heavy alcohol and drug use. ? Taking control pills, especially if you smoke. Risk factors that you cannot change include: ? Being older than age 60. ? Having had blood clots, stroke, or mini-stroke (transient ischemic attack, TIA) before. ? Having a family history of stroke. What are the signs or symptoms? Symptoms of a stroke usually happen all of a sudden. They can include: ? Weakness or a loss of feeling in your face, arm, or leg, often on one side of the body. ? Loss of balance or coordination. ? Slurred speech. ? Trouble talking or understanding what people say. ? Seeing things blurry or seeing double of one thing. ? Feeling dizzy or confused. ? Feeling like you may vomit (nausea) or vomiting. ? A very bad headache. If you can, write down the exact time you first had symptoms. Tell your doctor. If symptoms come and go, they could be caused by a mini-stroke. Get help right away, even if you feel better. How is this treated? You must get treatment as soon as you have stroke symptoms. Some treatments work better if they aredone within 3???6 hours of your first symptoms. You may get medicines that do these things: ? Take out or break up the blood clot. ? Control blood pressure. ? Thin your blood. Other treatments may include: ? Getting oxygen. ? Getting fluids through an IV tube. ? Procedures that make blood flow better. After a stroke, you may work with therapists to help you get better. Follow these instructions at home: Medicines ? Take [id number] and prescription medicines only as told by your doctor. ? If you were told to take a medicine to thin your blood, take it exactly as told. Take it at the same time each day. ? Taking too much of this medicine can cause bleeding. If you do not take enough medicine, it may notwork as well. ? If your doctor did not prescribe medicines that have aspirin or NSAIDs, such as ibuprofen, talk to your doctor before you take any of these. ? If you are taking a blood thinner: ? Put pressure over any cuts that bleed for longer than normal. ? Tell your dentist and other doctors that you take this medicine. ? Avoid activities that could hurt or bruise you. ? Wear a medical alert bracelet or carry a card that shows you are taking blood thinners. Eating and drinking ? Follow instructions from your doctor about diet. ? Eat healthy foods. ? If you have trouble swallowing: ? Take small bites when eating. ? Eat foods that are soft or pureed. Safety ? Follow instructions from your care team about physical activity. ? Use a walker or cane as told by your doctor. ? Keep your home safe so you do not fall. Take these steps: ? Put grab bars in the bedroom and bathroom. ? Use raised toilets and put a seat in the shower. ? Get rid of clutter and things you could trip on, such as cords or rugs. General instructions ? Do not smoke or use any products that contain nicotine or tobacco. If you need help quitting, ask your doctor. ? If you drink alcohol: ? Limit how much you have to: ? 0???1 drink a day for women who are not . ? 0???2 drinks a day for men. ? Know how much alcohol is in your drink. In the [place] one drink equals one 12 oz bottle of beer (355mL), one 5 oz glass of wine (148 mL), or one 1?? oz glass of hard liquor (44 mL). ? Stay active. ? Keep all follow-up visits. How is this prevented? You can lower your risk of another stroke by managing these conditions: ? High blood pressure. ? High cholesterol. ? Diabetes. ? Heart disease. ? Sleep problems. ? Being overweight. You can also lower your risk if you: ? Quit smoking. ? Limit alcohol. ? Stay active. Your doctor will continue to help you with ways to prevent problems caused by a stroke. Get help right away if: You have any signs of a stroke. BE FAST is an easy way to remember the main warning signs: ? B - Balance. Dizziness, sudden trouble walking, or loss of balance. ? E - Eyes. Trouble seeing or a change in how you see. ? F - Face. Sudden weakness or loss of feeling of the face. The face or eyelid may droop on one side. ? A - Arms. Weakness or loss of feeling in an arm. This happens all of a sudden and most often on oneside of the body. ? S - Speech. Sudden trouble speaking, slurred speech, or trouble understanding what people say. ? T - Time. Time to call emergency services. Write down what time symptoms started. You have other signs of a stroke, such as: ? A sudden, very bad headache with no known cause. ? Feeling like you may vomit. ? Vomiting. ? A seizure. These symptoms may be an emergency. Get help right away. Call your local emergency services ([facility] [place] ? Do not wait to see if the symptoms will go away. ? Do not drive yourself to the hospital. Summary ? An ischemic stroke happens when the brain does not get enough blood. ? Symptoms of a stroke often happen all of a sudden. ? You must get treatment as soon as you have stroke symptoms. ? Stroke is an emergency. It must be treated right away. This information is not intended to replace advice given to you by your health care provider. Make sure you discuss any questions you have with your health care provider. Document Revised: 09/11/2020 Document Reviewed: 09/11/2020 Elsevier Patient Education ?? 2021 [employer] Patient/Coal Screener Signature Patient Name:MELANY POP I have received this information and my questions have been answered. 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 Stoma is clean with no breakdown of any kind. Pt was able to do all suctioningand care himself prior to his stroke. Since he has been here his ability to do all care himself is improving but due to the weakness in his left side he is unable to suction alone still. His need forsuction has decreased since his admission, going from 2 times daily to 1 or even no suction needed. Every morning we clean any dried mucus from around stoma and the internal device with tweezers, usually for small amounts and then suction as needed which usually has a scant to small amount rae/clear secretions. usually it takes 2 passes to be sure everything can be suctioned. Pt has normal cough at this point but has no real adverse reactions to suction. Pt cough is much stronger now and has never showed signs of distress due to mucous production. Pt remains in good spirits and good determination to get back to doing all stoma/airway care for himself. will continue to monitor. Electronically Signed on 10/12/22 10:04 AM Duy Parada Nutrition and dietetics Progress note * Esperanza Garay: PERFORM Event Display: Nutrition Note Authored Date: [id number] Assessment and Monitoring Follow Up ?? 52 yo M admitted s/p CVA and continues to work with Rehab. Weight 166kg, ?- 10kg,??5.7%??since admit in 2 months. Could be likely, is working with PT/OT 2x/day. Not clinically significant, however,noted. ??Changed to Regular diet a couple weeks ago, some increase BS but not too much elevated [id number] 100s. On Metformin and SSI. A1c October 7.5, down slightly 7.7% in August. Accepting meals. no recent labs. skin intact. Nutrition Goals No s/sx hyper,hypoglycemia POs >75% of meals Nutrition Interventions Regular diet BS daily dietedu. prn Anthropometrics/Estimated Needs [id number] kg(Recorded: 11/11/2022 00:49 EDT) [id number] cm(Recorded: 10/21/2022 06:36 EDT) Body Mass Index50.46 kg/m2(Recorded: 10/21/2022 06:36 EDT) Reason for Visit left sided weakness d/t CVA Problem List/Past Medical History Ongoing Diabetes Hypertension Morbid obesity Morbid obesity Historical No qualifying data Social History Electronic Cigarette/Vaping Electronic Cigarette Use: Never. Home/Environment Lives with Alone. Living situation: Home/Independent. Tobacco Never tobacco user Tobacco Use:. Diet Orders Diet Order, 10/22/22 10:38:00 EDT, Regular Start Meal: Now Allergies No Known Medication Allergies Nutrition Lab Results Test Name Test Result Date/Time WBC 7.1 K/mcL 10/20/2022 11:30 EDT Hgb 13.9 g/dL 10/20/2022 11:30 EDT Hct 41.6 % 10/20/2022 11:30 EDT MCV 86.5 fL 10/20/2022 11:30 EDT Platelets 190 K/mcL 10/20/2022 11:30 EDT INR 1.0 10/17/2022 04:50 EDT Sodium Level 134 mmol/L 11/05/2022 12:55 EDT Potassium Level 3.7 mmol/L 11/05/2022 12:55 EDT Chloride Level 92 mmol/L 11/05/2022 12:55 EDT CO2 31 mmol/L 11/05/2022 12:55 EDT BUN 17 mg/dL 11/05/2022 12:55 EDT Glucose Level 224 mg/dL 11/05/2022 12:55 EDT Creatinine Level 0.80 mg/dL 11/05/2022 12:55 EDT Phosphorus Level 3.5 mg/dL 11/05/2022 12:55 EDT Albumin Level 3.9 g/dL 11/05/2022 12:55 EDT Magnesium Level 1.8 mg/dL 10/20/2022 11:30 EDT Medications Inpatient acetaminophen, 650 mg= 2 tab, Oral, every 6 hr, PRN aspirin, 81 mg= 1 tab, Oral, Daily bisacodyl, 10 mg= 1 supp, VA, Daily, PRN Brilinta (ticagrelor), 90 mg= 1.5 tab, Oral, BID Dextrose 50% injection, 25 g= 50 mL, IV Push, As Directed docusate-senna 50 mg-8.6 mg oral tablet, 2 tab, Oral, BID glucagon, 1 mg= 1 EA, Subcutaneous, As Directed hydroCHLOROthiazide, 25 mg= 1 tab, Oral, Daily levothyroxine, 100 mcg= 1 tab, Oral, Daily metFORMIN, 500 mg= 1 tab, Oral, BID w/Meals Milk of Magnesia 8% oral suspension, 30 mL, Oral, Daily, PRN NIFEdipine, 30 mg= 1 cap, Oral, Daily ondansetron, 4 mg= 1 tab, Oral, every 6 hr, PRN Protonix, 40 mg= 1 tab, Oral, Daily sodium biphosphate-sodium phosphate 7 g-19 g rectal enema, 133 mL, VA, Daily, PRN Home aspirin 81 mg oral capsule, 81 mg, Oral, Daily gabapentin 300 mg oral capsule, 300 mg= 1 cap, Oral, TID levothyroxine 100 mcg (0.1 mg) oral tablet, 100 mcg= 1 tab, Oral, Daily lisinopril 20 mg oral tablet, 20 mg= 1 tab, Oral, Daily metFORMIN 1000 mg oral tablet, 1000 mg= 1 tab, Oral, BID NAC 600 mg oral capsule Norvasc 5 mg oral tablet, 5 mg= 1 tab, Oral, Daily Ozempic 2 mg/3 mL (0.25 mg or 0.5 mg dose) subcutaneous solution Plavix 75 mg oral tablet, 75 mg= 1 tab, Oral, Daily Electronically Signed on 11/13/22 12:56 PM Esperanza Garay * Esperanza Garay: PERFORM Event Display: Nutrition Note Authored Date: [id number] Assessment and Monitoring Nutrition Follow Up ?? 52 yo M admit s/p CVA. Continues here for OT/PT. Diet changed to Regular diet, patient been on con carb/low sodium for past 6 weeks, would like occasionally some variance. Doesn't eat much outsideof meals. Does always drink diet soda/water. Generally, eating 45-50g carbs per meal. vitals prettywell controlled. BS <200. On Metformin with SSI. A1c 7.7% in August. overall, has pretty good understanding of what to eat, doesn't really eat sweets or anything, just wants an occasional chicken finger/fries. Suggest adding vegetable to meals/fiber to enc better glycemic control as well.??Monitorintakes/blood sugars/Bps. can adjust as needed. Weight 169kg, admit with 176kg, indicated -7kg, 3.8%??x a little over a month. Not clinically significant weight loss, but noted. Is working with PT/OT for gain strength. Likely not r/t poor nutrition, just??more activity. Nutrition Goals Euvolemic weight No s/sx hyper,hypoglycemia Labs/vitals wnl skin w/o open areas Nutrition Interventions Regular diet weights BS 3x/day diet edu. prn Anthropometrics/Estimated Needs [id number] kg(Recorded: 10/21/2022 06:36 EDT) Jvhufa507 cm(Recorded: 10/21/2022 06:36 EDT) Body Mass Index50.46 kg/m2(Recorded: 10/21/2022 06:36 EDT) Reason for Visit left sided weakness d/t CVA Problem List/Past Medical History Ongoing Morbid obesity Morbid obesity Historical No qualifying data Social History Electronic Cigarette/Vaping Electronic Cigarette Use: Never. Home/Environment Lives with Alone. Living situation: Home/Independent. Tobacco Never tobacco user Tobacco Use:. Diet Orders Diet Order, 10/22/22 10:38:00 EDT, Regular Start Meal: Now Allergies No Known Medication Allergies Nutrition Lab Results Test Name Test Result Date/Time WBC 7.1 K/mcL 10/20/2022 11:30 EDT Hgb 13.9 g/dL 10/20/2022 11:30 EDT Hct 41.6 % 10/20/2022 11:30 EDT MCV 86.5 fL 10/20/2022 11:30 EDT Platelets 190 K/mcL 10/20/2022 11:30 EDT INR 1.0 10/17/2022 04:50 EDT Sodium Level 137 mmol/L 10/20/2022 11:30 EDT Potassium Level 4.2 mmol/L 10/20/2022 11:30 EDT Chloride Level 100 mmol/L 10/20/2022 11:30 EDT CO2 27 mmol/L 10/20/2022 11:30 EDT BUN 15 mg/dL 10/20/2022 11:30 EDT Glucose Level 204 mg/dL 10/20/2022 11:30 EDT Creatinine Level 0.76 mg/dL 10/20/2022 11:30 EDT Magnesium Level 1.8 mg/dL 10/20/2022 11:30 EDT Medications Inpatient acetaminophen, 1000 mg= 2 tab, Oral, every 6 hr, PRN aspirin, 81 mg= 1 tab, Oral, Daily atorvastatin, 80 mg= 4 tab, Oral, every evening bacitracin topical, 1 kenneth, Topical, Daily bisacodyl, 10 mg= 1 supp, VA, Daily, PRN Brilinta (ticagrelor), 90 mg= 1.5 tab, Oral, BID Dextrose 50% injection, 25 g= 50 mL, IV Push, As Directed docusate-senna 50 mg-8.6 mg oral tablet, 2 tab, Oral, BID gabapentin, 300 mg= 1 cap, Oral, Daily glucagon, 1 mg= 1 EA, Subcutaneous, As Directed heparin, 5000 units= 1 mL, Subcutaneous, every 8 hr (parviz) insulin aspart Sliding Scale - Medium Dose, Insulin Aspart Sliding Scale See Comments, Subcutaneous, AC levothyroxine, 100 mcg= 1 tab, Oral, Daily lisinopril, 40 mg= 2 tab, Oral, Daily metFORMIN, 500 mg= 1 tab, Oral, BID(AC) Milk of Magnesia 8% oral suspension, 30 mL, Oral, Daily, PRN Norvasc, 10 mg= 2 tab, Oral, Daily ondansetron, 4 mg= 1 tab, Oral, every 6 hr, PRN Protonix, 40 mg= 1 tab, Oral, Daily sodium biphosphate-sodium phosphate 7 g-19 g rectal enema, 133 mL, VA, Daily, PRN traZODone, 25 mg= 0.5 tab, Oral, every night at bedtime, PRN Home aspirin 81 mg oral capsule, 81 mg, Oral, Daily gabapentin 300 mg oral capsule, 300 mg= 1 cap, Oral, TID levothyroxine 100 mcg (0.1 mg) oral tablet, 100 mcg= 1 tab, Oral, Daily lisinopril 20 mg oral tablet, 20 mg= 1 tab, Oral, Daily metFORMIN 1000 mg oral tablet, 1000 mg= 1 tab, Oral, BID Norvasc 5 mg oral tablet, 5 mg= 1 tab, Oral, Daily Plavix 75 mg oral tablet, 75 mg= 1 tab, Oral, Daily Electronically Signed on 10/22/22 03:17 PM Esperanza Garay * Esperanza Garay: PERFORM Event Display: Nutrition Note Authored Date: [id number] Assessment and Monitoring follow up ?? able to speak with patient this morning. had no questions/concerns about menu or diet choices. blood sugars are better controlled- says he's seen senior health educator in the past. had no questions right now about diabetes/medications. working with PT/OT / feeds self- do put soup in mug to help and does well with finger foods. Monitoring. Anthropometrics/Estimated Needs Oxiltq992.5 kg(Recorded: 10/06/2022 05:26 EDT) Zasgro214.000 cm(Recorded: 10/03/2022 12:28 EDT) Body Mass Index51.660 kg/m2(Recorded: 10/03/2022 12:28 EDT) Reason for Visit left sided weakness d/t CVA Problem List/Past Medical History Ongoing Morbid obesity Morbid obesity Historical No qualifying data Social History Electronic Cigarette/Vaping Electronic Cigarette Use: Never. Home/Environment Lives with Alone. Living situation: Home/Independent. Tobacco Never tobacco user Tobacco Use:. Diet Orders Diet Order, 10/03/22 9:47:00 EDT, Consistent Carbohydrates, Na: 2 g sodium Allergies No Known Medication Allergies Medications Inpatient acetaminophen, 1000 mg= 2 tab, Oral, every 6 hr, PRN aspirin, 81 mg= 1 tab, Oral, Daily atorvastatin, 80 mg= 4 tab, Oral, every evening bacitracin topical, 1 kenneth, Topical, Daily bisacodyl, 10 mg= 1 supp, VA, Daily, PRN Brilinta (ticagrelor), 90 mg= 1.5 tab, Oral, BID Dextrose 50% injection, 25 g= 50 mL, IV Push, As Directed docusate-senna 50 mg-8.6 mg oral tablet, 2 tab, Oral, BID gabapentin, 300 mg= 1 cap, Oral, Daily glucagon, 1 mg= 1 EA, Subcutaneous, As Directed heparin, 5000 units= 1 mL, Subcutaneous, every 8 hr (parviz) insulin aspart Sliding Scale - Medium Dose, Insulin Aspart Sliding Scale See Comments, Subcutaneous, AC levothyroxine, 100 mcg= 1 tab, Oral, Daily lisinopril, 40 mg= 2 tab, Oral, Daily metFORMIN, 500 mg= 1 tab, Oral, BID(AC) Milk of Magnesia 8% oral suspension, 30 mL, Oral, Daily, PRN Norvasc, 7.5 mg= 1.5 tab, Oral, Daily ondansetron, 4 mg= 1 tab, Oral, every 6 hr, PRN sodium biphosphate-sodium phosphate 7 g-19 g rectal enema, 133 mL, VA, Daily, PRN traZODone, 25 mg= 0.5 tab, Oral, every night at bedtime, PRN Home aspirin 81 mg oral capsule, 81 mg, Oral, Daily gabapentin 300 mg oral capsule, 300 mg= 1 cap, Oral, TID levothyroxine 100 mcg (0.1 mg) oral tablet, 100 mcg= 1 tab, Oral, Daily lisinopril 20 mg oral tablet, 20 mg= 1 tab, Oral, Daily metFORMIN 1000 mg oral tablet, 1000 mg= 1 tab, Oral, BID Norvasc 5 mg oral tablet, 5 mg= 1 tab, Oral, Daily Plavix 75 mg oral tablet, 75 mg= 1 tab, Oral, Daily Electronically Signed on 10/07/22 02:38 PM Esperanza Garay Progress note * Mehdi Rivera MD: PERFORM Event Display: Progress Note - Physician Authored Date: [id number] MELANY POP :1970 Age:52 years Sex:Male Visit Date:10/03/2022 Objective Vitals & Measurements T:??36.8?C ??(Temporal Artery)?? TMIN:??36.0?C ??(Temporal Artery)?? TMAX:??36.8?C ??(Temporal Artery)?? HR:??85??(Peripheral)?? RR:??18?? BP:??152/87?? SpO2:??100%?? Pain Score:??5?? O2 Therapy:??Room air?? Physical Exam pt awake, alert well appearing In wheelchair but able to stand up moves his arms??much better although his left still not fully normal particular hand??speech is normal when using his stoma Diagnostic Results ECG Medications (15) Active Scheduled: (9) Aspirin 81 mg EC Tab [LTTL] ??81 mg 1 tab, Oral, Daily Dextrose 50% Inj 50 mL Syringe [LTTL] ??25 g 50 mL, IV Push, As Directed Glucagon 1 mg Inj ??[LTTL] ??1 mg 1 EA, Subcutaneous, As Directed hydroCHLOROthiazide 25 mg Tab ??[LTTL] ??25 mg 1 tab, Oral, Daily Levothyroxine 100 mcg Tab [LTTL] ??100 mcg 1 tab, Oral, Daily metFORMIN 500 mg Tab [LTTL] ??1,000 mg 2 tab, Oral, BID w/Meals NIFEdipine 30 mg ER Tab [LTTL] ??60 mg 2 cap, Oral, Daily Ticagrelor 60 mg Tab [LTTL] ??90 mg 1.5 tab, Oral, BID Vancomycin 125 mg Cap [LTTL] ??125 mg 1 cap, Oral, QID Continuous: (0) PRN: (6) Acetaminophen 325 mg Tab [LTTL] ??650 mg 2 tab, Oral, every 6 hr Bisacodyl 10 mg Supp [LTTL] ??10 mg 1 supp, VA, Daily Magnesium Hydrox Oral Susp 30 mL cup [LTTL] ??30 mL, Oral, Daily Ondansetron 4 mg OD Tab [LTTL] ??4 mg 1 tab, Oral, every 6 hr Senna-Docusate 8.6 mg-50 mg Tab [LTTL] ??2 tab, Oral, BID Sodium Phosphates Enema [LTTL] ??133 mL, VA, Daily Assessment/Plan 1.??Stroke??I63.9 Yesterday with physical therapy he ambualted 50-100ft x 3 with SPC and WC follow. Demonstrated excellent safety awareness and no LOB.?? Continues to rehab anticipate??discharge home??in about 10 daysor so. ??He did have a home visit earlier this week.?? Regards to his??medical management as per below ?? --??Aspirin indefinitely, ticagrelor for 90 days, it seems his statin fell off the med list we willput him back on Lipitor 80 mg Ordered: metFORMIN, 1,000 mg = 2 tab, Oral, Tab, BID w/Meals for 30 days, First Dose: 11/22/22 17:00:00 EDT,Stop Date: 12/22/22 16:59:00 EST, Physician Stop, Routine NIFEdipine, 60 mg = 2 cap, Oral, Tab-ER, Daily for 30 days, First Dose: 11/23/22 9:00:00 EDT, Stop Date: 12/23/22 8:59:00 EST, Physician Stop, Routine ?? 2.??Diabetes??E11.9 increasing metformin to 1gram bid today. Ordered: metFORMIN, 1,000 mg = 2 tab, Oral, Tab, BID w/Meals for 30 days, First Dose: 11/22/22 17:00:00 EDT,Stop Date: 12/22/22 16:59:00 EST, Physician Stop, Routine NIFEdipine, 60 mg = 2 cap, Oral, Tab-ER, Daily for 30 days, First Dose: 11/23/22 9:00:00 EDT, Stop Date: 12/23/22 8:59:00 EST, Physician Stop, Routine ?? 3.??Hypertension??I10 Increasing his nifedipine from 30 to 60 mg, on hydrochlorothiazide to Ordered: metFORMIN, 1,000 mg = 2 tab, Oral, Tab, BID w/Meals for 30 days, First Dose: 11/22/22 17:00:00 EDT,Stop Date: 12/22/22 16:59:00 EST, Physician Stop, Routine NIFEdipine, 60 mg = 2 cap, Oral, Tab-ER, Daily for 30 days, First Dose: 11/23/22 9:00:00 EDT, Stop Date: 12/23/22 8:59:00 EST, Physician Stop, Routine ?? 5.??C. difficile colitis??A04.72 Day 9 of Vanco. ??At 14 days ?? Electronically Signed on 11/22/22 10:51 AM Mehdi Rivera MD * Asad Troncoso MD: PERFORM Event Display: Progress Note - Physician Authored Date: [id number] MELANY POP :1970 Age:52 years Sex:Male Visit Date:10/03/2022 Anticipated Discharge Date November 30 Subjective The patient has no complaints Review of Systems Constitutional:??No fevers, chills, sweats ENT:??No ear pain, nasal congestion, sore throat Respiratory:??No shortness of breath, cough Cardiovascular:??No Chest pain, palpitations, syncope Gastrointestinal: No diarrhea. Genitourinary:??No hematuria Musculoskeletal:??No back pain, neck pain, joint pain, muscle pain, decreased range of motion Neurologic: Much improved left upper extremity??ability. Objective Vitals & Measurements T:??35.9?C ??(Temporal Artery)?? HR:??75??(Monitored)?? RR:??18?? BP:??167/89?? SpO2:??98%?? Pain Score:??5?? O2 Therapy:??Room air?? Physical Exam General: Oriented x4,??pleasant, morbidly obese..?? HENT:??Normocephalic, clear tympanic membranes, normal hearing, moist oral mucosa, no scleral icterus, no sinus tenderness.?? Lungs:??Clear to auscultation and percussion, non-labored respiration.?? Heart:??Normal rate, regular rhythm, no murmur, gallop or edema. Abdomen: Benign abdominal exam, no tenderness..?? Musculoskeletal:??Normal range of motion and strength, no tenderness or swelling. Skin:??Skin is warm, dry and pink, no rashes or lesions. Neurologic: Great improvement in left upper extremity??with the patient able to touch his thumb to fingers, wiggle his fingers, and raise his arm. Lab Results Last 24 Hours?? Chemistry ? Event Name?? Event Result?? Date/Time?? Sodium Level 134 mmol/L 11/14/22 20:15:00 Potassium Level 3.7 mmol/L 11/14/22 20:15:00 Chloride Level 97 mmol/L??Low 11/14/22 20:15:00 CO2 28 mmol/L 11/14/22 20:15:00 BUN 16 mg/dL 11/14/22 20:15:00 Glucose Level 236 mg/dL??High 11/14/22 20:15:00 Creatinine Level 0.79 mg/dL 11/14/22 20:15:00 BUN/Creat Ratio 20.3??High 11/14/22 20:15:00 eGFR CKD-EPI 108 mL/min/1.73 m2 11/14/22 20:15:00 Calcium Level 9 mg/dL 11/14/22 20:15:00 Anion Gap 9 11/14/22 20:15:00 Magnesium Level 1.7 mg/dL??Low 11/14/22 20:15:00 Osmolality 277 mOsm/kg 11/14/22 20:15:00 ? Hematology ? Event Name?? Event Result?? Date/Time?? WBC 7 K/mcL 11/14/22 20:15:00 RBC 4.56 Million/mcL 11/14/22 20:15:00 Hgb 13.1 g/dL??Low 11/14/22 20:15:00 Hct 38.7 %??Low 11/14/22 20:15:00 MCV 84.9 fL 11/14/22 20:15:00 MCH 28.7 pg 11/14/22 20:15:00 MCHC 33.9 g/dL 11/14/22 20:15:00 RDW-CV 13.7 % 11/14/22 20:15:00 Platelets 217 K/mcL 11/14/22 20:15:00 MPV 9.2 fL 11/14/22 20:15:00 Neutro Auto 67.4 % 11/14/22 20:15:00 Lymph Auto 18.1 %??Low 11/14/22 20:15:00 Rincon Auto 6.7 % 11/14/22 20:15:00 Eos, Auto 5.4 %??High 11/14/22 20:15:00 Basophil Auto 1.3 %??High 11/14/22 20:15:00 Imm Gran Auto 1.1 %??High 11/14/22 20:15:00 Neutro Absolute 4.7 K/mcL 11/14/22 20:15:00 Lymph Absolute 1.3 K/mcL 11/14/22 20:15:00 Rincon Absolute 0.5 K/mcL 11/14/22 20:15:00 Eos Absolute 0.4 K/mcL??High 11/14/22 20:15:00 Baso Absolute 0.1 K/mcL 11/14/22 20:15:00 Imm Gran Absolute 0.08 K/mcL??High 11/14/22 20:15:00 Slide Review Not Indicated 11/14/22 20:15:00 ? Assessment/Plan 1.??Stroke??I63.9 Continue Brilinta,??aspirin, and elements of permissive hypertension.?? At this point the patient is basically living here until going home. ??He is not an active patient. ??But he is still working with our rehab team??and most reportedly he is improving. 2.??Diabetes??E11.9 Increase metformin, continue to monitor. 3.??Hypertension??I10 Continue current regimen, allow for some element of permissive hypertension. 4.??Morbid obesity??E66.01 Nutrition consult, continue with nutritional work. 5.??C. difficile colitis??A04.72 Diarrhea has ceased, complete course of vancomycin. ?? Time spent on patient care today is 40 minutes. Electronically Signed on 11/15/22 07:53 PM Asad Troncoso MD * Mehdi Rivera MD: PERFORM Event Display: Progress Note - Physician Authored Date: [id number] MELANY POP :1970 Age:52 years Sex:Male Visit Date:10/03/2022 Objective Vitals & Measurements T:??36.2?C ??(Temporal Artery)?? TMIN:??36.0?C ??(Temporal Artery)?? TMAX:??36.2?C ??(Temporal Artery)?? HR:??81??(Peripheral)?? RR:??16?? BP:??151/94?? SpO2:??94%?? Pain Score:??5?? O2 Therapy:??Room air?? Physical Exam General:??[Alert and oriented, well nourished, No acute distress] Eye: [PERRL, EOMI, normal conjunctiva] Lungs:??[Clear to auscultation and percussion,??Non-labored respiration] Heart:??[ Normal rate,??Normal rhythm,??No murmur, No gallop] Abdomen:??[Soft, non-tender, non-distended, normal bowel sounds, no masses] Patient frequent using the wheelchair in the halls doing well moving his left hand much better??than 2 weeks ago Lab Results Medications (15) Active Scheduled: (10) Aspirin 81 mg EC Tab [LTTL] ??81 mg 1 tab, Oral, Daily Dextrose 50% Inj 50 mL Syringe [LTTL] ??25 g 50 mL, IV Push, As Directed Glucagon 1 mg Inj ??[LTTL] ??1 mg 1 EA, Subcutaneous, As Directed hydroCHLOROthiazide 25 mg Tab ??[LTTL] ??25 mg 1 tab, Oral, Daily Levothyroxine 100 mcg Tab [LTTL] ??100 mcg 1 tab, Oral, Daily metFORMIN 500 mg Tab [LTTL] ??500 mg 1 tab, Oral, Daily NIFEdipine 30 mg ER Tab [LTTL] ??30 mg 1 cap, Oral, Daily Pantoprazole 40 mg Tab [LTTL] ??40 mg 1 tab, Oral, Daily Senna-Docusate 8.6 mg-50 mg Tab [LTTL] ??2 tab, Oral, BID Ticagrelor 60 mg Tab [LTTL] ??90 mg 1.5 tab, Oral, BID Continuous: (0) PRN: (5) Acetaminophen 325 mg Tab [LTTL] ??650 mg 2 tab, Oral, every 6 hr Bisacodyl 10 mg Supp [LTTL] ??10 mg 1 supp, VA, Daily Magnesium Hydrox Oral Susp 30 mL cup [LTTL] ??30 mL, Oral, Daily Ondansetron 4 mg OD Tab [LTTL] ??4 mg 1 tab, Oral, every 6 hr Sodium Phosphates Enema [LTTL] ??133 mL, VA, Daily Assessment/Plan 1.??Stroke??I63.9 Continuing dual antiplatelet agents??for at least 90 days??continuing statin??he is making good??progress??with physical therapy doing better all the time??he will need??a bariatric wheelchair??with a gel cushion??given size and??length of anticipated time needing a wheelchair to help recover. Ordered: metFORMIN, 500 mg = 1 tab, Oral, Tab, Daily for 30 days, First Dose: 11/05/22 9:50:00 EDT, Stop Date: 12/05/22 8:59:00 EDT, Physician Stop, NOW NIFEdipine, 30 mg = 1 cap, Oral, Tab-ER, Daily for 30 days, First Dose: 11/06/22 9:00:00 EDT, Stop Date: 12/06/22 8:59:00 EDT, Physician Stop, Routine Hgb A1c, Blood, Routine, 11/05/22 9:49:00 EDT, Once, Lab Collect, Stroke Diabetes BPV (benign positional vertigo) Morbid obesity Hypertension ?? 2.??Diabetes??E11.9 We will check an A1c and put on metformin and start him back up on this at 500 mg a day and??titrate up, patient not wanting to do subcu insulin anymore Ordered: metFORMIN, 500 mg = 1 tab, Oral, Tab, Daily for 30 days, First Dose: 11/05/22 9:50:00 EDT, Stop Date: 12/05/22 8:59:00 EDT, Physician Stop, NOW NIFEdipine, 30 mg = 1 cap, Oral, Tab-ER, Daily for 30 days, First Dose: 11/06/22 9:00:00 EDT, Stop Date: 12/06/22 8:59:00 EDT, Physician Stop, Routine Hgb A1c, Blood, Routine, 11/05/22 9:49:00 EDT, Once, Lab Collect, Stroke Diabetes BPV (benign positional vertigo) Morbid obesity Hypertension ?? 3.??Hypertension??I10 Still little bit hypertensive on max dose Norvasc 10 mg along with??hydrochlorothiazide 25 mg.?? Praveenjeremyrashad check a renal panel given the hydrochlorothiazide and also change his Norvasc to nifedipine tohelp with blood pressure management Ordered: metFORMIN, 500 mg = 1 tab, Oral, Tab, Daily for 30 days, First Dose: 11/05/22 9:50:00 EDT, Stop Date: 12/05/22 8:59:00 EDT, Physician Stop, NOW NIFEdipine, 30 mg = 1 cap, Oral, Tab-ER, Daily for 30 days, First Dose: 11/06/22 9:00:00 EDT, Stop Date: 12/06/22 8:59:00 EDT, Physician Stop, Routine Hgb A1c, Blood, Routine, 11/05/22 9:49:00 EDT, Once, Lab Collect, Stroke Diabetes BPV (benign positional vertigo) Morbid obesity Hypertension ?? Orders: acetaminophen, 650 mg = 2 tab, Oral, Tab, every 6 hr for 30 days, PRN pain, First Dose: 11/05/22 10:24:00 EDT, Stop Date: 12/05/22 10:23:00 EDT, Physician Stop, Routine Electronically Signed on 11/05/22 01:11 PM Mehdi Rivera MD Patient Care team information Care Team Related Persons Name: TABITHA WATTS Name: DONI POP
--- OUTSIDE RECORDS SUMMARY | 2023-03-05 10:44 | XMS_ITS | Continuity of Care Document ---
Author Name Unknown Organization [facility] Address [address] [place] [address] Encounter LTTL_DE FIN NBR [id number] Date(s): 09/11/22 - 10/03/22 [facility] [address] [place], [place] [address] Encounter Diagnosis Acute ischemic stroke(Discharge Diagnosis) - 09/11/22 Morbid obesity(Discharge Diagnosis) - 09/11/22 Hypertension(Discharge Diagnosis) - 09/13/22 Diabetes(Discharge Diagnosis) - 09/15/22 BPV (benign positional vertigo)(Discharge Diagnosis) - 10/02/22 Discharge Disposition: Swing Bed Attending Physician: Walt Luke APRN Admitting Physician: Walt Luke APRN Allergies, Adverse Reactions, Alerts No Known Medication Allergies Assessment and Plan Future Appointments Functional Status 10/03/22 Personal Care Provided Barrier cream, Diaper/Brief changed, Hair care, Linen change, Partial bath, Helen care, Shampoo, Underpad change 10/02/22 Lunch Percent 100 10/02/22 Breakfast Percent 100 10/02/22 Activity Status ADL Up to chair 10/02/22 Lifting Equipment Mechanical lift wing ce, Overhead lift 10/01/22 Dinner Percent 0 09/29/22 Positioning/Pressure Reducing Devices Pi llow 09/26/22 ADLs Moderate assistance 09/16/22 Pressure Reducing Device for Bed Bariatr ic 09/15/22 Living Environment Home Environment Lives In: Single level home Performed By: Iram Cui 09/12/2022 Lives With: Alone Performed By: Iram Cui 09/12/2022 Living Situation: Home with family care, Home with home health Performed By: Iram Cui 09/12/2022 Patient's Responsibilities: Driving Performed By: Iram Cui 09/12/2022 Lives In Single level home Lives With Alone Living Situation Home independently Patient's Responsibilities Rehab Communi ty mobility, 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, 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, 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, Health and wellness, 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, Laundry, Leisure/Play/Hobbies, Manage Medications, Meal preparation, Shopping Current Home Treatments Blood glucose mo nitoring, Other: trach stoma Prior ADL Status Independent Prior Mobility Status Independent Prior Instrumental ADL Level Independent Prior Cognitive-Communication Skills Ind ependent 09/14/22 Afternoon Snack Percent 100 09/14/22 Number of Stairs Outside 2 Outside Stairs Rail None Location Bed 1st floor Location Main Bathroom 1st floor Location Kitchen 1st floor Location Laundry 1st floor 09/13/22 Assistive Device Other: Celina -with c eiling tracking. 09/12/22 Home Barriers No elevator Patient's Responsibilities Driving 09/11/22 Orthopedic/Preventive Devices Other: pat ient resting 09/11/22 Family Member Travel History No recent t ravel Recent Travel History No recent travel Other exposure to Infectious Disease Non e Medications aspirin 81 mg oral capsule 81 mg =, Oral, Daily, 0 Refill(s) Start Date: 09/14/22 Status: Ordered gabapentin 300 mg oral capsule 300 mg = 1 cap, Oral, TID, TAKE 1 CAPSULE BY MOUTH THREE TIMES DAILY Start Date: 09/11/22 Status: Ordered levothyroxine 100 mcg (0.1 mg) oral tablet 100 mcg = 1 tab, Oral, Daily, TAKE 1 TABLET BY MOUTH ONCE DAILY Start Date: 09/11/22 Status: Ordered lisinopril 20 mg oral tablet 20 mg = 1 tab, Oral, Daily, TAKE 1 TABLET BY MOUTH ONCE DAILY Start Date: 09/11/22 Status: Ordered metFORMIN 1000 mg oral tablet 1,000 mg = 1 tab, Oral, BID, TAKE 1 TABLET BY MOUTH TWICE DAILY Start Date: 09/11/22 Status: Ordered Norvasc 5 mg oral tablet 5 mg = 1 tab, Oral, Daily, 0 Refill(s) Start Date: 09/14/22 Status: Ordered Plavix 75 mg oral tablet 75 mg = 1 tab, Oral, Daily, 0 Refill(s) Start Date: 09/14/22 Status: Ordered Mental Status 09/19/22 Eye Opening Response [place] Spontaneous ly Best Verbal Response Cuate Oriented Best Motor Response Cuate Obeys comman ds [place] Coma Score 15 Problem List Condition Confirmation Course Effective Dates Status Health St atus Informant Morbid obesity Confirmed Active Results Laboratory List Name Date Glucose POCT 10/03/22 Glucose POCT 10/02/22 Glucose POCT 10/02/22 Automated Diff 09/30/22 Basic Metabolic Panel (BMP) 09/30/22 CBC w/ Diff 09/30/22 Magnesium Level 09/30/22 CBC w/ Diff 09/23/22 Comprehensive Metabolic Panel (CMP) Magnesium Level 09/23/22 Phosphorus Level 09/23/22 Automated Diff 09/23/22 CBC w/ Diff 09/20/22 Comprehensive Metabolic Panel (CMP) Magnesium Level 09/20/22 Automated Diff 09/20/22 CBC w/ Diff 09/12/22 PT/ INR 09/12/22 CBC w/ Diff 09/11/22 Comprehensive Metabolic Panel (CMP) 09/11 Hgb A1c (Hemoglobin A1C) 09/11/22 Lipid Panel 09/11/22 PT/ INR 09/11/22 Troponin-I High Sensitivity 09/11/22 Most recent to oldest [Reference Range]: 1 2 3 WBC [4.8-10.8 K/mcL] 7.7 K/mcL (09/30/22 6:09 AM) 7.3 K/mcL (09/23/22 6:18 AM) 7.1 K/mcL (09/20/22 10:35 AM) RBC [4.20-6.10 Million/mcL] 4.82 Million/mcL (09/30/22 6:09 AM) 5.19 Million/mcL (09/23/22 6:18 AM) 5.09 Million/mcL (09/20/22 10:35 AM) Neutro Auto [42.2-75.2 %] 73.6 % (09/30/22 6:09 AM) 71.6 % (09/23/22 6:18 AM) 73.5 % (09/20/22 10:35 AM) Lymph Auto [20.5-51.1 %] 15.0 % *LOW* (09/30/22 6:09 AM) 15.2 % *LOW* (09/23/22 6:18 AM) 12.7 % *LOW* (09/20/22 10:35 AM) Stanly Auto [1.7-9.3 %] 5.8 % (09/30/22 6:09 AM) 6.1 % (09/23/22 6:18 AM) 7.1 % (09/20/22 10:35 AM) Basophil Auto [0.0-0.8 %] 0.9 % *HI* (09/30/22 6:09 AM) 1.2 % *HI* (09/23/22 6:18 AM) 1.0 % *HI* (09/20/22 10:35 AM) Prothrombin Time [9.1-10.6 seconds] 10.4 seconds (09/12/22 5:17 AM) 9.9 seconds (09/11/22 7:25 PM) INR [0.9-1.1] 1.0 1 (09/12/22 5:17 AM) 1.0 2 (09/11/22 7:25 PM) BUN [8-26 mg/dL] 14 mg/dL (09/30/22 6:09 AM) 16 mg/dL (09/23/22 6:18 AM) 20 mg/dL (09/20/22 10:35 AM) Glucose POC 143 *NA* (10/03/22 8:19 AM) 136 *NA* (10/02/22 5:27 PM) 203 *NA* (10/02/22 12:39 PM) Cholesterol Total [129-209 mg/dL] 181 mg/dL (09/11/22 7:25 PM) LDL 110.8 *NA* (09/11/22 7:25 PM) Glucose Level [74-106 mg/dL] 172 mg/dL *HI* (09/30/22 6:09 AM) 234 mg/dL *HI* (09/23/22 6:18 AM) 246 mg/dL *HI* (09/20/22 10:35 AM) Potassium Level [3.5-5.1 mmol/L] 3.8 mmol/L (09/30/22 6:09 AM) 3.7 mmol/L (09/23/22 6:18 AM) 4.2 mmol/L (09/20/22 10:35 AM) Baso Absolute [0.0-0.2 K/mcL] 0.1 K/mcL (09/30/22 6:09 AM) 0.1 K/mcL (09/23/22 6:18 AM) 0.1 K/mcL (09/20/22 10:35 AM) MCV [80.0-94.0 fL] 85.5 fL (09/30/22 6:09 AM) 84.2 fL (09/23/22 6:18 AM) 85.9 fL (09/20/22 10:35 AM) HDL [40-80 mg/dL] 40 mg/dL (09/11/22 7:25 PM) AST [15-41 IntlUnit/L] 26 IntlUnit/L (09/23/22 6:18 AM) 27 IntlUnit/L (09/20/22 10:35 AM) 26 IntlUnit/L (09/11/22 7:25 PM) ALT [17-63 IntlUnit/L] 29 IntlUnit/L (09/23/22 6:18 AM) 26 IntlUnit/L (09/20/22 10:35 AM) 21 IntlUnit/L (09/11/22 7:25 PM) MCHC [32.0-36.0 g/dL] 33.0 g/dL (09/30/22 6:09 AM) 33.2 g/dL (09/23/22 6:18 AM) 33.0 g/dL (09/20/22 10:35 AM) Osmolality [275-295 mOsm/kg] 280 mOsm/kg (09/30/22 6:09 AM) 275 mOsm/kg (09/23/22 6:18 AM) 283 mOsm/kg (09/20/22 10:35 AM) Sodium Level [134-143 mmol/L] 138 mmol/L (09/30/22 6:09 AM) 133 mmol/L *LOW* (09/23/22 6:18 AM) 136 mmol/L (09/20/22 10:35 AM) Chol/HDL 4.5 *NA* (09/11/22 7:25 PM) Lymph Absolute [1.2-3.4 K/mcL] 1.2 K/mcL (09/30/22 6:09 AM) 1.1 K/mcL *LOW* (09/23/22 6:18 AM) 0.9 K/mcL *LOW* (09/20/22 10:35 AM) Hct [42.0-52.0 %] 41.2 % *LOW* (09/30/22 6:09 AM) 43.7 % (09/23/22 6:18 AM) 43.7 % (09/20/22 10:35 AM) Triglycerides [10-150 mg/dL] 153 mg/dL *HI* (09/11/22 7:25 PM) Calcium Level [8.9-10.3 mg/dL] 8.9 mg/dL (09/30/22 6:09 AM) 8.7 mg/dL *LOW* (09/23/22 6:18 AM) 9.0 mg/dL (09/20/22 10:35 AM) Stanly Absolute [0.1-0.6 K/mcL] 0.4 K/mcL (09/30/22 6:09 AM) 0.4 K/mcL (09/23/22 6:18 AM) 0.5 K/mcL (09/20/22 10:35 AM) Phosphorus Level [2.5-4.9 mg/dL] 3.7 mg/dL (09/23/22 6:18 AM) Albumin Level [3.5-5.0 g/dL] 3.6 g/dL (09/23/22 6:18 AM) 3.7 g/dL (09/20/22 10:35 AM) 3.9 g/dL (09/11/22 7:25 PM) Protein Total [6.5-8.1 g/dL] 7.3 g/dL (09/23/22 6:18 AM) 7.3 g/dL (09/20/22 10:35 AM) 7.4 g/dL (09/11/22 7:25 PM) MCH [27.0-31.0 pg] 28.2 pg (09/30/22 6:09 AM) 27.9 pg (09/23/22 6:18 AM) 28.3 pg (09/20/22 10:35 AM) Magnesium Level [1.8-2.5 mg/dL] 1.9 mg/dL (09/30/22 6:09 AM) 1.9 mg/dL (09/23/22 6:18 AM) 1.7 mg/dL *LOW* (09/20/22 10:35 AM) Neutro Absolute [1.4-6.5 K/mcL] 5.7 K/mcL (09/30/22 6:09 AM) 5.2 K/mcL (09/23/22 6:18 AM) 5.2 K/mcL (09/20/22 10:35 AM) Bilirubin Total [0.2-1.2 mg/dL] 0.8 mg/dL (09/23/22 6:18 AM) 0.8 mg/dL (09/20/22 10:35 AM) 0.8 mg/dL (09/11/22 7:25 PM) Hgb [14.0-18.0 g/dL] 13.6 g/dL *LOW* (09/30/22 6:09 AM) 14.5 g/dL (09/23/22 6:18 AM) 14.4 g/dL (09/20/22 10:35 AM) Alk Phos [38-130 IntlUnit/L] 39 IntlUnit/L (09/23/22 6:18 AM) 42 IntlUnit/L (09/20/22 10:35 AM) 37 IntlUnit/L *LOW* (09/11/22 7:25 PM) MPV [7.4-10.4 fL] 9.4 fL (09/30/22 6:09 AM) 9.3 fL (09/23/22 6:18 AM) 9.2 fL (09/20/22 10:35 AM) Platelets [130-400 K/mcL] 202 K/mcL (09/30/22 6:09 AM) 182 K/mcL (09/23/22 6:18 AM) 197 K/mcL (09/20/22 10:35 AM) CO2 [22-32 mmol/L] 29 mmol/L (09/30/22 6:09 AM) 27 mmol/L (09/23/22 6:18 AM) 31 mmol/L (09/20/22 10:35 AM) Eos Absolute [0.0-0.2 K/mcL] 0.3 K/mcL *HI* (09/30/22 6:09 AM) 0.4 K/mcL *HI* (09/23/22 6:18 AM) 0.3 K/mcL *HI* (09/20/22 10:35 AM) eAvg Glucose [70-105 mg/dL] 174 mg/dL *HI* (09/11/22 7:25 PM) Chloride Level [98-111 mmol/L] 99 mmol/L (09/30/22 6:09 AM) 100 mmol/L (09/23/22 6:18 AM) 96 mmol/L *LOW* (09/20/22 10:35 AM) RDW-CV [11.5-14.5 %] 13.9 % (09/30/22 6:09 AM) 13.6 % (09/23/22 6:18 AM) 13.6 % (09/20/22 10:35 AM) A/G Ratio 1.0 *NA* (09/23/22 6:18 AM) 1.0 *NA* (09/20/22 10:35 AM) 1.1 *NA* (09/11/22 7:25 PM) BUN/Creat Ratio [8.0-20.0] 19.7 (09/30/22 6:09 AM) 24.2 *HI* (09/23/22 6:18 AM) 25.6 *HI* (09/20/22 10:35 AM) Globulin 3.7 *NA* (09/23/22 6:18 AM) 3.6 *NA* (09/20/22 10:35 AM) 3.5 *NA* (09/11/22 7:25 PM) Imm Gran Absolute 0.07 *NA* (09/30/22 6:09 AM) 0.08 *NA* (09/23/22 6:18 AM) 0.11 *NA* (09/20/22 10:35 AM) Imm Gran Auto [0.0-0.5 %] 0.9 % *HI* (09/30/22 6:09 AM) 1.1 % *HI* (09/23/22 6:18 AM) 1.6 % *HI* (09/20/22 10:35 AM) Slide Review Not Indicated (09/23/22 6:18 AM) Not Indicated (09/12/22 5:17 AM) Not Indicated (09/11/22 7:25 PM) Hgb A1c Percent [4.0-6.0 %] 7.7 % *HI* (09/11/22 7:25 PM) .Hb 14.9 g/dL *NA* (09/11/22 7:25 PM) .Hgb A1c 0.9 g/dL *NA* (09/11/22 7:25 PM) Creatinine Level [0.61-1.24 mg/dL] 0.71 mg/dL (09/30/22 6:09 AM) 0.66 mg/dL (09/23/22 6:18 AM) 0.78 mg/dL (09/20/22 10:35 AM) Troponin-I HS [<=20 ng/L] 17 ng/L 3 (09/11/22 7:25 PM) Anion Gap [3.0-12.0] 10.0 (09/30/22 6:09 AM) 6.0 (09/23/22 6:18 AM) 9.0 (09/20/22 10:35 AM) Eos, Auto [0.00-3.00 %] 3.80 % *HI* (09/30/22 6:09 AM) 4.80 % *HI* (09/23/22 6:18 AM) 4.10 % *HI* (09/20/22 10:35 AM) eGFR CKD-EPI [>=60 mL/min/1.73 m2] 112 mL/min/1.73 m2 (09/30/22 6:09 AM) 114 mL/min/1.73 m2 (09/23/22 6:18 AM) 109 mL/min/1.73 m2 (09/20/22 10:35 AM) 1Interpretive Data: THERAPEUTIC INR RANGES FOR WARFARIN Uncomplicated venous thromboembolic disease 2-3 Lupus Anticoagulant and recurrent thrombosis 3-3.5 Mechanical prosthetic valve or recurrent thrombosis 2.5-3.5 2Interpretive Data: THERAPEUTIC INR RANGES FOR WARFARIN Uncomplicated venous thromboembolic disease 2-3 Lupus Anticoagulant and recurrent thrombosis 3-3.5 Mechanical prosthetic valve or recurrent thrombosis 2.5-3.5 3Interpretive Data: The [facility] ACCESS high-sensitivity Troponin I (hsTNI) 99 percentile cutoffs forhealthy adults are 12 ng/L or less for females and 20 ng/L or less for males. SERIAL MEASUREMENT IS HIGHLY RECOMMENDED for the diagnosis or exclusion of Acute Coronary Syndromes(ACS). Please refer to the High-Sensitivity Troponin Algorithm 2022 for guidance. As with all markers of cardiac injury, elevations of hsTnI do not in and of themselves indicate thepresence of an ischemic mechanism. Many other disease states can be associated with elevations via mechanisms different from those that cause injury in patients with ACS. These include trauma (contusion, ablation, pacing); congestive heart failure; pulmonary embolism; kidney failure; and myocarditis. Clinical judgement is necessary to distinguish patients who have ischemic heart disease from those who do not. Radiology Reports * Exam Date Time Procedure Performing Provider Status 10/01/22 3:[address] Head w/o Contrast Benjamin Arellano [facility] (Verified) Notes: (CT Head w/o Contrast) Reason For Exam: Vertigo CT Head w/o Contrast PROCEDURE INFORMATION: Exam: CT Head Without Contrast Exam date and time: 10/01/2022 3:39 PM Age: 52 years old Clinical indication: Dizziness; Additional info: Vertigo TECHNIQUE: Imaging protocol: Computed tomography of the head without contrast. Radiation optimization: All CT scans at this facility use at least one of these dose optimization techniques: automated exposure control; mA and/or kV adjustment per patient size (includes targeted exams where dose is matched to clinical indication); or iterative reconstruction. REPORTING DATA: Count of CT and Cardiac NM exams in prior 12 months: This patient has received 6 known CTs and 0 known cardiac nuclear medicine studies in the 12 months prior to the current study. COMPARISON: CT HEAD WO CONTRAST 09/21/2022 12:32 PM FINDINGS: Brain: Ill-defined areas hypodensity right posterior limb of internal capsule and at the left thalamus capsular junction are similar to 09/21/2022. No new focal hypodensities are identified. These have the appearance subacute/chronic ischemic regions. There is no evidence of intracranial hemorrhage. No abnormal extra-axial fluid collections are identified. No mass effect or midline shift. Nolasco-white differentiation appears preserved. Cerebral ventricles: No ventriculomegaly. Paranasal sinuses: The visualized sinuses are unremarkable. Mastoid air cells: There is no mastoid effusion detected. Bones/joints: Unremarkable. No acute fracture. Soft tissues: Unremarkable. IMPRESSION: 1. Ill-defined areas hypodensity right posterior limb of internal capsule and at the left thalamus capsular junction are similar to 09/21/2022, have the appearance subacute/chronic ischemic regions. 2. No intracranial hemorrhage, mass effect or midline shift. THIS DOCUMENT HAS BEEN ELECTRONICALLY SIGNED BY TOMMIE WATSON MD on 10/01/2022 04:42 PM Final Signed by: Tommie Watson MD Signed (Electronic Signature): 10/01/2022 4:42 pm * Exam Date Time Procedure Performing Provider Status 09/21/22 12:[address] Head w/o Contrast Violette Mathews; Chidi h (Verified) Notes: (CT Head w/o Contrast) Reason For Exam: numbness CT Head w/o Contrast EXAM DESCRIPTION: CT Head w/o Contrast 09/21/2022 INDICATION: NUMBNESS TECHNIQUE: All CT scans at this facility use at least one of these dose optimization techniques: Automated exposure control; mA and/or kV adjustment per patient size (includes targeted exams where dose is matched to clinical indication); or iterative reconstruction. Axial CT images of the head without contrast. COMPARISON: 09/14/2022 FINDINGS: No acute intracranial hemorrhage, mass effect or midline shift. No hydrocephalus. Ovoid area of low attenuation in the posterior limb of the right internal capsule suspicious for lacunar infarct with small ovoid area of low attenuation in the lateral left thalamus suspicious for lacunar infarct. These have become apparent since prior studies. Basal cisterns remain patent The calvarium appears intact. Mild left ethmoid sinus mucosal thickening. Remaining visualized paranasal sinuses are grossly clear. IMPRESSION: No acute intracranial hemorrhage, mass effect or midline shift. Small areas of low attenuation in the posterior limb of the right internal capsule and lateral left thalamus region suspicious for small lacunar infarcts which have become apparent since prior study. JOB #: [id number] Final Signed by: Duy Silva MD Signed (Electronic Signature): 09/21/2022 12:54 pm * Exam Date Time Procedure Performing Provider Status 09/14/22 10:[address] Head w/o Contrast Yoly Arias nn; Auth (Verified) Notes: (CT Head w/o Contrast) Reason For Exam: >24 hr complete L hemiparesis CT Head w/o Contrast EXAM DESCRIPTION: CT Head w/o Contrast 09/14/2022 INDICATION: >24 HR COMPLETE L HEMIPARESIS TECHNIQUE: All CT scans at this facility use at least one of these dose optimization techniques: Automated exposure control; mA and/or kV adjustment per patient size (includes targeted exams where dose is matched to clinical indication); or iterative reconstruction. Axial CT images of the head without contrast. COMPARISON: CT head without contrast from 09/12/[address] angiography head/neck examination from 09/11/2022 FINDINGS: No acute intracranial hemorrhage, mass effect or midline shift. Ovoid area of low attenuation in the posterior limb of the right internal capsule measuring approximately 10 x 6 mm suspicious for acute or recent lacunar infarct which has become apparent since recent studies. Subtle vasogenic edema in the right posterior frontal-parietal region, and involving right MCA distribution is suspected. No hydrocephalus. Basal cisterns remain patent. The calvarium appears intact. The visualized paranasal sinuses are grossly clear. IMPRESSION: Lacunar infarct in the posterior limb right internal capsule measuring approximately 10 x 6 mm which has become apparent since recent CT examinations. Evolving right MCA distribution infarct is suspected as well as described above. No acute intracranial hemorrhage, mass effect or midline shift. Results telephoned to hospitalist physician at the time of interpretation. JOB #: [id number] Final Signed by: Duy Silva MD Signed (Electronic Signature): 09/14/2022 10:34 am * Exam Date Time Procedure Performing Provider Status 09/12/22 5:[address] Head w/o Contrast Saray Lucero; Nicole macario (Verified) Notes: (CT Head w/o Contrast) Reason For Exam: stroke CT Head w/o Contrast PROCEDURE INFORMATION: Exam: CT Head Without Contrast Exam date and time: 09/12/2022 5:27 AM Age: 52 years old Clinical indication: Injury or trauma; Fall; Blunt trauma (contusions or hematomas); Consciousness not specified; Injury details: PT fell in hospital while trying to go to bathroom unassisted; Additional info: Stroke TECHNIQUE: Imaging protocol: Computed tomography of the head without contrast. Radiation optimization: All CT scans at this facility use at least one of these dose optimization techniques: automated exposure control; mA and/or kV adjustment per patient size (includes targeted exams where dose is matched to clinical indication); or iterative reconstruction. REPORTING DATA: Count of CT and Cardiac NM exams in prior 12 months: This patient has received 2 known CTs and 0 known cardiac nuclear medicine studies in the 12 months prior to the current study. COMPARISON: CT ANGIO HEAD 09/11/2022 7:34 PM FINDINGS: Brain: No hemorrhage. No mass effect. No midline shift. Cerebral ventricles: No ventriculomegaly. Paranasal sinuses: Visualized sinuses are unremarkable. No fluid levels. Mastoid air cells: Visualized mastoid air cells are well aerated. Bones/joints: Unremarkable. No acute fracture. Soft tissues: Unremarkable. IMPRESSION: No acute intracranial abnormality. 249 images. Sagittal and coronal reformatted images are submitted for review. THIS DOCUMENT HAS BEEN ELECTRONICALLY SIGNED BY CHANTELLE CASAS MD on 09/12/2022 05:59 AM Final Signed by: Chantelle Casas MD Signed (Electronic Signature): 09/12/2022 5:59 am * Exam Date Time Procedure Performing Provider Status 09/12/22 5:[address] Spine Cervical w/o Contrast Danielito Lucero (Verified) Notes: (CT Spine Cervical w/o Contrast) Reason For Exam: fall CT Spine Cervical w/o Contrast PROCEDURE INFORMATION: Exam: CT Cervical Spine Without Contrast Exam date and time: 09/12/2022 5:27 AM Age: 52 years old Clinical indication: Injury or trauma; Fall; Blunt trauma; Injury details: PT fell in hospital trying to go to bathroom without assistance TECHNIQUE: Imaging protocol: Computed tomography of the cervical spine without contrast. Radiation optimization: All CT scans at this facility use at least one of these dose optimization techniques: automated exposure control; mA and/or kV adjustment per patient size (includes targeted exams where dose is matched to clinical indication); or iterative reconstruction. REPORTING DATA: Count of CT and Cardiac NM exams in prior 12 months: This patient has received 2 known CTs and 0 known cardiac nuclear medicine studies in the 12 months prior to the current study. COMPARISON: CT ANGIO NECK 09/11/2022 7:34 PM FINDINGS: Bones/joints: No acute fracture. Normal alignment. No significant disc bulge or herniation. No severe spinal canal stenosis. No significant neural foraminal narrowing. Lungs: Lung apices are normal. Soft tissues: Unremarkable. IMPRESSION: No acute findings. THIS DOCUMENT HAS BEEN ELECTRONICALLY SIGNED BY CHANTELLE CASAS MD on 09/12/2022 06:00 AM Final Signed by: Chantelle Casas MD Signed (Electronic Signature): 09/12/2022 6:00 am * Exam Date Time Procedure Performing Provider Status 09/11/22 7:[address] Angio Brain/Head Nadia Argentina; Auth (Verified) Notes: (CT Angio Brain/Head) Reason For Exam: left sided weakness CT Angio Brain/Head PROCEDURE INFORMATION: Exam: CTA Head With Contrast, Arteriography Exam date and time: 09/11/2022 7:34 PM Age: 52 years old Clinical indication: Stroke-like symptoms; Left facial droop; Left-sided weakness TECHNIQUE: Imaging protocol: Computed tomographic angiography of the head with contrast. Exam focused on the arteries. 3D rendering (Not supervised by radiologist): MIP and/or 3D reconstructed images were created by the technologist. Radiation optimization: All CT scans at this facility use at least one of these dose optimization techniques: automated exposure control; mA and/or kV adjustment per patient size (includes targeted exams where dose is matched to clinical indication); or iterative reconstruction. Contrast material: ISOVUE 370; Contrast volume: 100 ml; Contrast route: INTRAVENOUS (IV); REPORTING DATA: Count of CT and Cardiac NM exams in prior 12 months: This patient has received 0 known CTs and 0 known cardiac nuclear medicine studies in the 12 months prior to the current study. COMPARISON: No relevant prior studies available. FINDINGS: ANTERIOR CIRCULATION: Right internal carotid artery: Intracranial segment is patent with no significant stenosis. No aneurysm. Right middle cerebral artery: No occlusion or significant stenosis. No aneurysm. Right anterior cerebral artery: No occlusion or significant stenosis. No aneurysm. Left internal carotid artery: Intracranial segment is patent with no significant stenosis. No aneurysm. Left middle cerebral artery: No occlusion or significant stenosis. No aneurysm. Left anterior cerebral artery: No occlusion or significant stenosis. No aneurysm. POSTERIOR CIRCULATION: Right vertebral artery: Patent dominant right vertebral artery without focal stenosis or occlusion. Left vertebral artery: No occlusion or significant stenosis. No aneurysm. Basilar artery: No occlusion or significant stenosis. No aneurysm. Right posterior cerebral artery: origin of a patent right posterior cerebral artery. No focal stenosis or occlusion. Left posterior cerebral artery: No occlusion or significant stenosis. No aneurysm. Brain: A few scattered small areas of decreased density in the periventricular white matter which are likely secondary to chronic ischemia from microvascular change. Scattered old lacunar infarcts in each basal ganglia region. No acute intracranial hemorrhage. Mild diffuse cerebral atrophy. Cerebral ventricles: Ventricular prominence in this patient with mild diffuse cerebral atrophy. Mastoid air cells: Normally aerated mastoid air cells. Paranasal sinuses: No significant disease of the paranasal sinuses. Bones/joints: Unremarkable for patient age. Soft tissues: Unremarkable. IMPRESSION: 1. No acute intracranial findings on initial unenhanced CT head images. 2. Mild diffuse cerebral atrophy. Age-related periventricular white matter changes. 3. CTA head within normal limits. No large vessel occlusion. No aneurysm. 4. ASPECTS ([place] Stroke Program Early CT Score) = 10. THIS DOCUMENT HAS BEEN ELECTRONICALLY SIGNED BY SIMONE BURROUGHS MD on 09/11/2022 08:06 PM Final Signed by: Simone Burroughs MD Signed (Electronic Signature): 09/11/2022 8:06 pm * Exam Date Time Procedure Performing Provider Status 09/11/22 7:[address] Angio Neck Argentina Zuniga; Auth (Verified) Notes: (CT Angio Neck) Reason For Exam: left sided weakness CT Angio Neck PROCEDURE INFORMATION: Exam: CTA Neck With Contrast Exam date and time: 09/11/2022 7:34 PM Age: 52 years old Clinical indication: Stroke-like symptoms; Left facial droop; Left-sided weakness TECHNIQUE: Imaging protocol: Computed tomographic angiography of the neck with contrast. 3D rendering (Not supervised by radiologist): MIP and/or 3D reconstructed images were created by the technologist. Radiation optimization: All CT scans at this facility use at least one of these dose optimization techniques: automated exposure control; mA and/or kV adjustment per patient size (includes targeted exams where dose is matched to clinical indication); or iterative reconstruction. Contrast material: ISOVUE 370; Contrast volume: 100 ml; Contrast route: INTRAVENOUS (IV); REPORTING DATA: Count of CT and Cardiac NM exams in prior 12 months: This patient has received 0 known CTs and 0 known cardiac nuclear medicine studies in the 12 months prior to the current study. COMPARISON: No relevant prior studies available. FINDINGS: Right common carotid artery: No stenosis. No dissection or occlusion. Right internal carotid artery: Minimal calcific plaque within the medial origin of the right internal carotid artery without stenosis or occlusion. Right external carotid artery: No occlusion or stenosis of the origin. Left common carotid artery: No stenosis. No dissection or occlusion. Left internal carotid artery: Calcific plaque within the proximal left internal carotid artery region producing approximately 15-20% stenosis. Left external carotid artery: No occlusion or stenosis of the origin. Right vertebral artery: Patent dominant right vertebral artery. No focal stenosis or occlusion. Left vertebral artery: No stenosis. No dissection or occlusion. Soft tissues: Left posterior subcutaneous lipoma at approximately the C3 / C4 level. Bones/joints: No acute fracture. IMPRESSION: 1. Calcific plaque within the proximal left internal carotid artery region producing approximately 15-20% stenosis. 2. Patent right carotid system and vertebral arteries. REFERENCES: NASCET CRITERIA. The degree of stenosis in the cervical segment of the internal carotid artery is based on NASCET criteria. Normal is no stenosis. Mild is less than 50% stenosis. Moderate is 50-69% stenosis. Severe is 70% to 99% stenosis. Total occlusion is no detectable patent lumen. THIS DOCUMENT HAS BEEN ELECTRONICALLY SIGNED BY SIMONE BURROUGHS MD on 09/11/2022 08:14 PM Final Signed by: Simone Burroughs MD Signed (Electronic Signature): 09/11/2022 8:14 pm Vital Signs Most recent to oldest [Reference Range]: 1 2 3 Temperature Oral [35.8-37.3 Deg C] 37 Deg C (09/28/22 7:53 PM) 36.6 Deg C (09/23/22 3:23 AM) 37.1 Deg C (09/22/22 11:32 PM) Temperature Tympanic [36.6-37.9 Deg C] 37 Deg C (09/11/22 7:00 PM) Temperature Temporal Artery [36-38 Deg C] 36.2 Deg C (10/03/22 7:32 AM) 36.1 Deg C (10/02/22 7:30 PM) 36.4 Deg C (10/02/22 5:34 PM) Temperature Temporal Artery (DegF) [97.3-100 Deg F] 97.16 Deg F *LOW* (10/03/22 7:32 AM) 97.7 Deg F (10/02/22 9:14 AM) 96.8 Deg F *LOW* (10/01/22 7:22 PM) Peripheral Pulse Rate [60-100 bpm] 74 bpm (10/03/22 7:32 AM) 82 bpm (10/02/22 7:30 PM) 82 bpm (10/02/22 5:34 PM) Respiratory Rate [12-24 br/min] 17 br/min (10/03/22 7:32 AM) 16 br/min (10/02/22 5:34 PM) 16 br/min (10/02/22 9:14 AM) Blood Pressure [90-140/60-90 mmHg] 127/68mmHg (10/03/22 7:32 AM) 143/90mmHg *HI* (10/02/22 7:30 PM) 155/96mmHg *HI* (10/02/22 5:34 PM) Mean Arterial Pressure, Cuff [65-140 mmHg] 88 mmHg (10/03/22 7:32 AM) 120 mmHg (10/02/22 9:14 AM) 108 mmHg (10/02/22 1:41 AM) Mean Arterial Pressure Cuff 130 mmHg (09/11/22 7:54 PM) 143 mmHg (09/11/22 7:36 PM) Blood Pressure Location Right arm (09/30/22 8:35 PM) Right arm (09/29/22 8:54 PM) Right arm (09/27/22 7:34 PM) Blood Pressure Method Automatic (09/30/22 8:35 PM) Automatic (09/27/22 7:34 PM) Automatic (09/26/22 7:27 PM) Weight 173 kg (09/30/22 11:24 PM) 176.000 kg (09/11/22 10:56 PM) 176.00 kg (09/11/22 7:00 PM) Weight Measured (lbs) 381.399 lb (09/30/22 11:24 PM) Weight Dosing 176.000 kg (09/11/22 10:56 PM) 176.00 kg (09/11/22 7:18 PM) Height 183.000 cm (09/11/22 10:56 PM) 183.000 cm (09/11/22 7:00 PM) Height/Length Dosing 183.000 cm (09/11/22 10:56 PM) 183.000 cm (09/11/22 7:18 PM) Body Mass Index 52.550 kg/m2 (09/11/22 10:56 PM) 53.000 kg/m2 (09/11/22 7:00 PM) Social History Social History Type Response Tobacco Never tobacco user T obacco Use:. Sex Hospital Discharge Instructions Patient Education 09/14/2022 10:56:39 Ischemic Stroke Ischemic Stroke An ischemic stroke (cerebrovascular accident, CVA) occurs when an area of the brain does not get enough blood flow. This leads to the sudden of brain tissue and can cause brain damage. An ischemic stroke is a medical emergency. It must be treated right away. What are the causes? This condition is caused by a decrease of blood flow to a part of the brain. This may be due to: ??? A small blood clot (embolus). ??? A buildup of plaque in the blood vessels (atherosclerosis). This blocks blood flow in the brain. ??? An abnormal heart rhythm, called atrial fibrillation (AFib). This sends a small blood clot to the brain. ??? A blocked or damaged artery in the head or neck. ??? Certain infections. ??? Inflammation of the arteries in the brain (vasculitis). Sometimes, the cause of ischemic stroke is not known. What increases the risk? The following medical conditions may increase your risk of a stroke: ??? High blood pressure (hypertension). ??? Heart disease. ??? Diabetes. ??? High cholesterol. ??? Obesity. ??? Sleep problems (sleep apnea). Other risk factors that you can change include: ??? Using products that contain nicotine or tobacco. ??? Not being active. ??? Heavy use of alcohol or drugs, especially cocaine and methamphetamine. ??? Taking control pills, especially if you also use tobacco. Risk factors that you cannot change include: ??? Being older than age 60. ??? Having a history of blood clots, stroke, or mini-stroke (transient ischemic attack, TIA). ??? Having a family history of stroke. What are the signs or symptoms? Symptoms of this condition usually develop suddenly, or you may notice them after waking from sleep. These may include: ??? Weakness or numbness of your face, arm, or leg, especially on one side of your body. ??? Loss of balance or coordination. ??? Slurred speech, trouble speaking, trouble understanding speech, or a combination of these. ??? Vision changes. You may have double vision, blurred vision, or loss of vision. ??? Dizziness or confusion. ??? Nausea and vomiting. ??? Severe headache. If possible, write down the exact time your symptoms started. Tell your health care provider. If symptoms come and go, they could be signs of a TIA. Get help right away, even if you feel better. How is this diagnosed? This condition may be diagnosed based on: ??? Your symptoms, your medical history, and a physical exam. ??? CT scan of the brain. ??? MRI. ??? Imaging tests that scan blood flow in the brain (CT angiogram, MRI angiogram, or cerebral angiogram). You may also have other tests, including: ??? Electrocardiogram (ECG). ??? Continuous heart monitoring. ??? Transthoracic echocardiogram (TTE). ??? Transesophageal echocardiogram (OG). ??? Carotid ultrasound. ??? Blood tests. ??? Sleep study to check for sleep apnea. You may need to see a health care provider who specializes in stroke care. How is this treated? Treatment for this condition depends on the area of the brain affected and the cause of your symptoms. Some treatments work better if they are done within 3???6 hours of the start of symptoms. These may include: ??? Medicine that is injected to dissolve the blood clot. ??? Treatments given directly to the affected artery to remove or dissolve the blood clot. ??? Medicines to control blood pressure. ??? Medicines to thin the blood (anticoagulant or antiplatelet). Other treatments may include: ??? Oxygen. ??? IV fluids. ??? Procedures to increase blood flow. After a stroke, you may work with physical, speech, mental health, or occupational therapists to help you recover. Follow these instructions at home: Medicines ??? Take yevv-[id number]-mcfxoes and prescription medicines only as told by your health care provider. ??? If you were told to take a medicine to thin your blood, take it exactly as told, at the same time every day. ??? Taking too much of a blood thinner can cause bleeding. Taking too little may not protect you against a stroke and other problems. ??? If you were not prescribed medicines that contain aspirin or NSAIDs, such as ibuprofen, talk with your health care provider before you take any of these. These medicines increase your risk for dangerous bleeding. ??? When taking a blood thinner, do these things: ??? Hold pressure over any cuts that bleed for longer than usual. ??? Tell your dentist and other health care providers that you are taking anticoagulants before having any procedures that may cause bleeding. ??? Avoid activities that could cause injury or bruising. ??? Wear a medical alert bracelet or carry a card that lists what medicines you take. Eating and drinking ??? Follow instructions from your health care provider about diet. ??? Eat healthy foods. ??? If your stroke affected your ability to swallow, you may need to take steps to avoid choking. These may include: ??? Taking small bites of food. ??? Eating soft or pureed foods. Safety ??? Follow instructions from your health care team about physical activity. ??? Use a walker or cane as told by your health care provider. ??? Take steps to lower your risk of falls at home. These may include: ??? Installing grab bars in the bedroom and bathroom. ??? Using raised toilets and putting a seat in the shower. ??? Removing clutter and tripping hazards, such as cords or area rugs. General instructions ??? Do not use any products that contain nicotine or tobacco. These include cigarettes, chewing tobacco, and vaping devices, such as e-cigarettes. If you need help quitting, ask your health care provider. ??? If you drink alcohol: ??? Limit [...] glass of hard liquor (44 mL). ??? Keep all follow-up visits. This is important. How is this prevented? You can lower your risk of another stroke by managing these conditions: ??? High blood pressure. ??? High cholesterol. ??? Diabetes. ??? Heart disease. ??? Sleep apnea. ??? Obesity. Quitting smoking, limiting alcohol, and staying physically active also will reduce your risk. Your health care provider will continue to help you with ways to prevent short- term and long-term problems caused by stroke. Get help right away if: You have any symptoms of a stroke. BE FAST is an easy way to remember the main warning signs of astroke: ??? B - Balance. Signs are dizziness, sudden trouble walking, or loss of balance. ??? E - Eyes. Signs are trouble seeing or a sudden change in vision. ??? F - Face. Signs are sudden weakness or numbness of the face, or the face or eyelid drooping on one side. ??? A - Arms. Signs are weakness or numbness in an arm. This happens suddenly and usually on one side of the body. ??? S - Speech. Signs are sudden trouble speaking, slurred speech, or trouble understanding what people say. ??? T - Time. Time to call emergency services. Write down what time symptoms started. You have other signs of a stroke, such as: ??? A sudden, severe headache with no known cause. ??? Nausea or vomiting. ??? Seizure. These symptoms may represent a serious problem that is an emergency. Do not wait to see if the symptoms will go away. Get medical help right away. Call your local emergency services (911 in the [place] Do not drive yourself to the hospital. Summary ??? An ischemic stroke (cerebrovascular accident, CVA) occurs when an area of the brain does not get enough blood flow. ??? Symptoms of this condition usually develop suddenly, or you may notice them after waking from sleep. ??? It is very important to get treatment at the first sign of stroke symptoms. Stroke is a medicalemergency that must be treated right away. This information is not intended to replace advice given to you by your health care provider. Make sure you discuss any questions you have with your health care provider. Document Revised: 09/11/2020 Document Reviewed: 09/11/2020 [employer] Patient Education ?? 2021 [employer] Follow Up Care 09/11/2022 19:00:00 With:Clarence Hopkins MD Address: [address] [place] [id number] When:2 to 4 weeks Comments:stroke follow up Telehealth Consult note * Event Display: Telemedicine Consultation * Event Display: Telemedicine Consultation [facility] * Event Display: Echo Report Respiratory therapy Hospital Progress note * Anali Britton: PERFORM Event Display: Respiratory Therapy Progress Note Authored Date: [id number] Spoke with the patient to confirm that he is feeling good, states that he does not need anything atthis time, but will call if or when he does. Electronically Signed on 09/30/22 09:27 AM Anali Britton * Duy Parada: PERFORM Event Display: Respiratory Therapy Progress Note Authored Date: [id number] Pt was seen twice today for stoma care and suction. both times dried small amount of mucous picked from around implanted device. Suction both times for small amount of rae mucous which was thick. asked if he wanted to go on cool aerosol but pt refused. no breakdown of stoma and pt had good responsefrom all care given. Electronically Signed on 09/28/22 05:56 PM Duy Parada * Duy Parada: PERFORM Event Display: Respiratory Therapy Progress Note Authored Date: [id number] saw pt this morning for some deep suction and stoma care. pt had some accumulated crusty mucous around implanted device. cleaned all this mucous from around device and around stoma. deep suction 3x for a small/moderate amount of rae mucous that was thick. placed on cool aersol on air. pt maintainedSpO2 95% and had no adverse reaction to care given. 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 The patient states that at 2 PM he was working??when he noted that he started having some left-sided weakness.?? The patient arrived??at approximately 7 PM.?? The patient??states that he has not had any difficulty with his speech??although of course at baseline this is altered due to to his tracheostomy. ??He does not feel as though he has any word finding difficulties??or any slurred speech. ??He denies any changes to his vision or headache.?? He does??feel as though the left side of his body including arm and leg feel different than compared to right side. Review of Systems: CONSTITUTIONAL:??No fevers or chills. EYES:??No change in vision. ENT:??No sore throat. ??No headache. ??No neck pain. CARDIOVASCULAR:??No chest pain, palpitations or passing out episodes. RESPIRATORY:??No cough, shortness of breath or hemoptysis. GI:??No abdominal pain. No nausea, vomiting or diarrhea. :??No change in urination. SKIN:??No rash. NEUROLOGIC: See above. MUSCULOSKELETAL:??No swelling or pain. PSYCHIATRIC:??No depression. LYMPH:??No swelling. Review of systems otherwise as stated in HPI Physical Exam Vitals & Measurements T:??37?C ??(Tympanic)?? HR:??80??(Peripheral)?? RR:??18?? BP:??170/106?? SpO2:??96%?? HT:??183.000??cm?? WT:??176.00??kg?? BMI:??53.000?? General: ??AAOx3. ??GCS15. ??No acute distress, answering questions appropriately. Head: ??Atraumatic; Normocephalic Eye: ??PERRLA; EOMI; no scleral icterus / pallor ENT: moist mucous membranes; no epistaxis. No stridor. Neck: ??Active ROM intact; Trachea Midline. ??No JVD. ??No meningismus appreciated. Skin: Warm, dry Chest: ??Equal BS bilaterally. ??Clear to auscultation bilaterally. Heart: RRR; no murmur, rub, or gallop Abdomen: ??Soft, non-tender, non-distended, no guarding, rebound, or rigidity. No Hepatosplenomegaly Musculoskeletal: ??ROM intact of all extremities/joints without discomfort. ??Sensation grossly intact throughout. ??No obvious deformity. ??Strength Intact 5/5 throughout. ?? Neuro: NIH Stroke Scale: ??1a. Level of consciousness: 0 ? 0 = Alert; keenly responsive ? 1 = Not alert, but arousable by minor stimulation ? 2 = Not alert; requires repeated stimulation ? 3 = Unresponsive or responds only with reflex ??1b. Level of consciousness questions (What is the month? What is your age?): ??0 ? 0 = Answers two questions correctly ? 1 = Answers one question correctly ? 2 = Answers neither question correctly ??1c. Level of consciousness commands (Open and close your eyes. Pairer Substandard and release your hand.): ??0 ? 0 = Performs both tasks correctly ? 1 = Performs one task correctly ? 2 = Performs neither task correctly ??2. Best gaze: 0 ? 0 = Normal ? 1 = Partial gaze palsy ? 2 = Forced deviation ??3. Visual: 0 ? 0 = No visual loss ? 1 = Partial hemianopia ? 2 = Complete hemianopia ? 3 = Bilateral hemianopia ??4. Facial palsy: 0 ? 0 = Normal symmetric movements ? 1 = Minor paralysis ? 2 = Partial paralysis ? 3 = Complete paralysis of one or both sides ??5a. Motor left arm:??1 ? 0 = No drift ? 1 = Drift ? 2 = Some effort against gravity ? 3 = No effort against gravity; limb falls ? 4 = No movement ??5b. Motor right arm: 0 ? 0 = No drift ? 1 = Drift ? 2 = Some effort against gravity ? 3 = No effort against gravity; limb falls ? 4 = No movement ??6a. Motor left leg:??1 ? 0 = No drift ? 1 = Drift ? 2 = Some effort against gravity ? 3 = No effort against gravity ? 4 = No movement ??6b. Motor right le ? 0 = No drift ? 1 = Drift ? 2 = Some effort against gravity ? 3 = No effort against gravity ? 4 = No movement ??7. Limb ataxia: 0 ? 0 = Absent ? 1 = Present in one limb ? 2 = Present in two limbs ??8. Sensory:??1 ? 0 = Normal; no sensory loss ? 1 = Udjd-or-qwapaurj sensory loss ? 2 = Severe to total sensory loss ??9. Best language: 0 ? 0 = No aphasia; normal ? 1 = Mild to moderate aphasia ? 2 = Severe aphasia ? 3 = Mute, global aphasia ??10. Dysarthria: 0 ? 0 = Normal ? 1 = Mild to moderate dysarthria ? 2 = Severe dysarthria ??11. Extinction and inattention: 0 ? 0 = No abnormality ? 1 = Visual, tactile, auditory, spatial, or personal inattention ? 2 = Profound paty-attention or extinction Total score: 3 ?? Medical Decision Making: Patient was seen immediately on his arrival to the room.?? Patient does have evidence of left-sidedhemiparesis which is mild with mild drift.?? Patient's blood pressure is 157/115.?? His time of onset is approximately 5 hours and 20 minutes ago so is not a candidate at this time for tPA.?? If his blood pressure does go above 220/120 then we will start labetalol.?? 7:31 PM???blood was obtained from the patient is not going to CT scan.?Patient denies any history of??kidney issues.?? I did request a telemetry neuro consult from [facility].?? After talking with the neurologist at [facility] herrecommendation is that I give the patient some IV fluids, 300 mg Plavix, 325 mg of aspirin,??atorvastatin 40. ??Patient will need to be admitted for further stroke work-up including hemoglobin A1c, lipids, echocardiogram and MRI.?? At this time because of his low NIH score but also because of??the timeline of events and when he presented to the hospital, he is not a candidate for tPA. ??There is no large vessel occlusion seen on CTA to suggest the need for??directed??thrombolysis.?? Therefore, we will admit the patient to the hospitalist service. Critical Care Time Spent Critical Care: Excluding billable procedures, the aggregate critical care time on this patient was??40 minutes directed at stabilization. The patient was directly under my care in the with time directed to HPI at the bedside, reassessments, chart creation and review, consideration and interpretation of diagnostic studies, decisions regarding treatment and disposition, discussions of care with??family as well as??consultants. ?? Procedure No Qualifying Data Assessment/Plan 1.??Acute ischemic stroke??I63.9 2.??Morbid obesity??E66.01 Orders: aspirin, 325 mg = 1 tab, Oral, Tab, Daily for 30 days, First Dose: 09/11/22 20:24:00 EDT, Stop Date: 10/11/22 8:59:00 EDT, Physician Stop atorvastatin, 40 mg = 2 tab, Oral, Tab, every evening for 30 days, First Dose: 09/11/22 20:24:00 EDT, Stop Date: 10/10/22 20:59:00 EDT, Physician Stop Plavix, 300 mg = 4 tab, Oral, Tab, Once, First Dose: 09/11/22 20:24:00 EDT, Stop Date: 09/11/22 20:24:00 EDT, Physician Stop Sodium Chloride 0.9% 500 mL, Total Volume (mL): 500, 500 mL, Soln-IV, Hydration Bolus, 999 mL/hr, Order Duration: 1 doses, Start Date: 09/11/22 20:23:00 EDT, Stop Date: 09/11/22 20:52:00 EDT, 176 kg,Populate Charting Weight From Order, 2.99, m2 Medication Reconciliation Unchanged gabapentin (gabapentin 300 mg oral capsule)TAKE 1 CAPSULE BY MOUTH THREE TIMES DAILY. ?? levothyroxine (levothyroxine 100 mcg (0.1 mg) oral tablet)TAKE 1 TABLET BY MOUTH ONCE DAILY. ?? lisinopril (lisinopril 20 mg oral tablet)TAKE 1 TABLET BY MOUTH ONCE DAILY. ?? metFORMIN (metFORMIN 1000 mg oral tablet)TAKE 1 TABLET BY MOUTH TWICE DAILY. Problem List/Past Medical History Ongoing Morbid obesity Historical No qualifying data Allergies No Known Medication Allergies Social History Electronic Cigarette/Vaping Electronic Cigarette Use: Never. Tobacco Never tobacco user Tobacco Use:. Diagnostic Results CT Angio Brain/Head 09/11/2022 20:[address] Angio Neck 09/11/2022 20:[address] Angio Brain/Head ?? 09/11/22 19:34:59 PROCEDURE INFORMATION: Exam: CTA Head With Contrast, Arteriography Exam date and time: 09/11/2022 7:34 PM Age: 52 years old Clinical indication: Stroke-like symptoms; Left facial droop; Left-sided weakness ?? TECHNIQUE: Imaging protocol: Computed tomographic angiography of the head with contrast. Exam focused on the arteries. 3D rendering (Not supervised by radiologist): MIP and/or 3D reconstructed images were created by the technologist. Radiation optimization: All CT scans at this facility use at least one of these dose optimization techniques: automated exposure control; mA and/or kV adjustment per patient size (includes targeted exams where dose is matched to clinical indication); or iterative reconstruction. Contrast material: ISOVUE 370; Contrast volume: 100 ml; Contrast route: INTRAVENOUS (IV); ?? REPORTING DATA: Count of CT and Cardiac NM exams in prior 12 months: This patient has received 0 known CTs and 0 known cardiac nuclear medicine studies in the 12 months prior to the current study. ?? COMPARISON: No relevant prior studies available. ?? FINDINGS: ANTERIOR CIRCULATION: Right internal carotid artery: Intracranial segment is patent with no significant stenosis. No aneurysm. Right middle cerebral artery: No occlusion or significant stenosis. No aneurysm. Right anterior cerebral artery: No occlusion or significant stenosis. No aneurysm. ?? Left internal carotid artery: Intracranial segment is patent with no significant stenosis. No aneurysm. Left middle cerebral artery: No occlusion or significant stenosis. No aneurysm. ?? Left anterior cerebral artery: No occlusion or significant stenosis. No aneurysm. ?? POSTERIOR CIRCULATION: Right vertebral artery: Patent dominant right vertebral artery without focal stenosis or occlusion. Left vertebral artery: No occlusion or significant stenosis. No aneurysm. Basilar artery: No occlusion or significant stenosis. No aneurysm. Right posterior cerebral artery: origin of a patent right posterior cerebral artery. No focal stenosis or occlusion. Left posterior cerebral artery: No occlusion or significant stenosis. No aneurysm. ?? Brain: A few scattered small areas of decreased density in the periventricular white matter which are likely secondary to chronic ischemia from microvascular change. Scattered old lacunar infarcts in each basal ganglia region. No acute intracranial hemorrhage. Mild diffuse cerebral atrophy. Cerebral ventricles: Ventricular prominence in this patient with mild diffuse cerebral atrophy. Mastoid air cells: Normally aerated mastoid air cells. Paranasal sinuses: No significant disease of the paranasal sinuses. Bones/joints: Unremarkable for patient age. Soft tissues: Unremarkable. ?? IMPRESSION: 1. No acute intracranial findings on initial unenhanced CT head images. 2. Mild diffuse cerebral atrophy. Age-related periventricular white matter changes. 3. CTA head within normal limits. No large vessel occlusion. No aneurysm. 4. ASPECTS ([place] Stroke Program Early CT Score) = 10. ? THIS DOCUMENT HAS BEEN ELECTRONICALLY SIGNED BY SIMONE BURROUGHS MD on 09/11/2022 08:06 PM ?? Signed By: Simone Burroughs MD ?? CT Angio Neck ?? 09/11/22 19:34:59 PROCEDURE INFORMATION: Exam: CTA Neck With Contrast Exam date and time: 09/11/2022 7:34 PM Age: 52 years old Clinical indication: Stroke-like symptoms; Left facial droop; Left-sided weakness ?? TECHNIQUE: Imaging protocol: Computed tomographic angiography of the neck with contrast. 3D rendering (Not supervised by radiologist): MIP and/or 3D reconstructed images were created by the technologist. Radiation optimization: All CT scans at this facility use at least one of these dose optimization techniques: automated exposure control; mA and/or kV adjustment per patient size (includes targeted exams where dose is matched to clinical indication); or iterative reconstruction. Contrast material: ISOVUE 370; Contrast volume: 100 ml; Contrast route: INTRAVENOUS (IV); ?? REPORTING DATA: Count of CT and Cardiac NM exams in prior 12 months: This patient has received 0 known CTs and 0 known cardiac nuclear medicine studies in the 12 months prior to the current study. ?? COMPARISON: No relevant prior studies available. ?? FINDINGS: Right common carotid artery: No stenosis. No dissection or occlusion. Right internal carotid artery: Minimal calcific plaque within the medial origin of the right internal carotid artery without stenosis or occlusion. Right external carotid artery: No occlusion or stenosis of the origin. ?? Left common carotid artery: No stenosis. No dissection or occlusion. Left internal carotid artery: Calcific plaque within the proximal left internal carotid artery region producing approximately 15-20% stenosis. Left external carotid artery: No occlusion or stenosis of the origin. ?? Right vertebral artery: Patent dominant right vertebral artery. No focal stenosis or occlusion. Left vertebral artery: No stenosis. No dissection or occlusion. ?? Soft tissues: Left posterior subcutaneous lipoma at approximately the C3 / C4 level. Bones/joints: No acute fracture. ?? IMPRESSION: 1. Calcific plaque within the proximal left internal carotid artery region producing approximately 15-20% stenosis. 2. Patent right carotid system and vertebral arteries. ? REFERENCES: NASCET CRITERIA. The degree of stenosis in the cervical segment of the internal carotid artery is based on NASCET criteria. Normal is no stenosis. Mild is less than 50% stenosis. Moderate is 50-69% stenosis. Severe is 70% to 99% stenosis. Total occlusion is no detectable patent lumen. ? THIS DOCUMENT HAS BEEN ELECTRONICALLY SIGNED BY SIMONE BURROUGHS MD on 09/11/2022 08:14 PM ?? Signed By: Simone Burroughs MD Lab Results CBC and Differential?? LATEST RESULTS?? WBC?? 09/11/22 19:25?? 7.4?? RBC?? 09/11/22 19:25?? 5.24?? Hgb?? 09/11/22 19:25?? 14.4?? Hct?? 09/11/22 19:25?? 45.0?? MCV?? 09/11/22 19:25?? 85.9?? MCH?? 09/11/22 19:25?? 27.5?? MCHC?? 09/11/22 19:25?? 32.0?? RDW-CV?? 09/11/22 19:25?? 13.4?? Platelets?? 09/11/22 19:25?? 223?? MPV?? 09/11/22 19:25?? 9.5?? Neutro Auto?? 09/11/22 19:25?? 71.1?? Lymph Auto?? 09/11/22 19:25?? 14.5 ??Low?? Stanly Auto?? 09/11/22 19:25?? 7.2?? Eos, Auto?? 09/11/22 19:25?? 5.00 ??High?? Basophil Auto?? 09/11/22 19:25?? 1.0 ??High?? Imm Gran Auto?? 09/11/22 19:25?? 1.2 ??High?? Neutro Absolute?? 09/11/22 19:25?? 5.2?? Lymph Absolute?? 09/11/22 19:25?? 1.1 ??Low?? Stanly Absolute?? 09/11/22 19:25?? 0.5?? Eos Absolute?? 09/11/22 19:25?? 0.4 ??High?? Baso Absolute?? 09/11/22 19:25?? 0.1?? Imm Gran Absolute?? 09/11/22 19:25?? 0.09?? Slide Review?? 09/11/22 19:25?? Not Indicated? Coagulation?? LATEST RESULTS?? Prothrombin Time?? 09/11/22 19:25?? 9.9?? INR?? 09/11/22 19:25?? 1.0? Routine Chemistry?? LATEST RESULTS?? Sodium Level?? 09/11/22 19:25?? 135?? Potassium Level?? 09/11/22 19:25?? 4.3?? Chloride Level?? 09/11/22 19:25?? 101?? CO2?? 09/11/22 19:25?? 25?? Alk Phos?? 09/11/22 19:25?? 37 ??Low?? AST?? 09/11/22 19:25?? 26?? ALT?? 09/11/22 19:25?? 21?? BUN?? 09/11/22 19:25?? 13?? Glucose Level?? 09/11/22 19:25?? 230 ??High?? Creatinine Level?? 09/11/22 19:25?? 0.72?? BUN/Creat Ratio?? 09/11/22 19:25?? 18.1?? eGFR CKD-EPI?? 09/11/22 19:25?? 111?? Calcium Level?? 09/11/22 19:25?? 8.7 ??Low?? Protein Total?? 09/11/22 19:25?? 7.4?? Albumin Level?? 09/11/22 19:25?? 3.9?? Globulin?? 09/11/22 19:25?? 3.5?? A/G Ratio?? 09/11/22 19:25?? 1.1?? Bilirubin Total?? 09/11/22 19:25?? 0.8?? Anion Gap?? 09/11/22 19:25?? 9.0?? Osmolality?? 09/11/22 19:25?? 278?? Glucose POC?? 09/11/22 19:26?? 219? Cardiac Isoenzymes?? LATEST RESULTS?? Troponin-I HS?? 09/11/22 19:25?? 17? Electronically Signed on 09/14/22 09:01 PM Kiara Ruff MD Nutrition and dietetics Progress note * Esperanza Garay: PERFORM Event Display: Nutrition Note Authored Date: [id number] Assessment and Monitoring follow up ?? 52 yo M admit s/p stroke with left sided weakness. Continues with good po intakes. has no questions about meals/diet. Metformin was increased yesterday, blood sugars have been in 200s. Reviewing meal slips doesn't look like eating , about 4-5 carb per meal, sometimesl iess. IE had swedish muffinwith eggs for breakfast. is ordering veggies/salads as well usually so getting some fiber. sure part of reason is increased stress. Is participating with therapy, but does still having limited mobility. monitoring. diabetes edu. away till end of week- could place consult if blood sugars still abovetarget. no weight since admission- will request new weight. Nutrition Goals improved glycemic control POs >75% of meals labs wnl skin w/o open areas Nutrition Interventions low sodium/ con carb diet weekly weghts encourage pro/veg/fiber at meals Anthropometrics/Estimated Needs Mnzvnj537.000 kg(Recorded: 09/11/2022 22:56 EDT) Fqlcwd187.000 cm(Recorded: 09/11/2022 22:56 EDT) Body Mass Index52.550 kg/m2(Recorded: 09/11/2022 22:56 EDT) Reason for Visit left side weakness Problem List/Past Medical History Ongoing Morbid obesity Morbid obesity Historical No qualifying data Social History Electronic Cigarette/Vaping Electronic Cigarette Use: Never. Home/Environment Lives with Alone. Living situation: Home/Independent. Tobacco Never tobacco user Tobacco Use:. Diet Orders Diet Order, 09/11/22 21:31:00 EDT, Consistent Carbohydrates, Na: 2 g sodium Allergies No Known Medication Allergies Nutrition Lab Results Test Name Test Result Date/Time WBC 7.1 K/mcL 09/20/2022 10:35 EDT Hgb 14.4 g/dL 09/20/2022 10:35 EDT Hct 43.7 % 09/20/2022 10:35 EDT MCV 85.9 fL 09/20/2022 10:35 EDT Platelets 197 K/mcL 09/20/2022 10:35 EDT INR 1.0 09/12/2022 05:17 EDT Sodium Level 136 mmol/L 09/20/2022 10:35 EDT Potassium Level 4.2 mmol/L 09/20/2022 10:35 EDT Chloride Level 96 mmol/L 09/20/2022 10:35 EDT CO2 31 mmol/L 09/20/2022 10:35 EDT Alk Phos 42 IntlUnit/L 09/20/2022 10:35 EDT ALT 26 IntlUnit/L 09/20/2022 10:35 EDT BUN 20 mg/dL 09/20/2022 10:35 EDT Glucose Level 246 mg/dL 09/20/2022 10:35 EDT Creatinine Level 0.78 mg/dL 09/20/2022 10:35 EDT Albumin Level 3.7 g/dL 09/20/2022 10:35 EDT Bilirubin Total 0.8 mg/dL 09/20/2022 10:35 EDT Magnesium Level 1.7 mg/dL 09/20/2022 10:35 EDT Medications Inpatient acetaminophen, 1000 mg= 2 tab, Oral, every 6 hr, PRN aspirin, 81 mg= 1 tab, Oral, Daily atorvastatin, 40 mg= 2 tab, Oral, every evening bacitracin topical, 1 kenneth, Topical, Daily bisacodyl, 10 mg= 1 supp, MN, Daily, PRN Brilinta (ticagrelor), 90 mg= 1.5 tab, Oral, BID Dextrose 50% injection, 25 g= 50 mL, IV Push, As Directed docusate-senna 50 mg-8.6 mg oral tablet, 2 tab, Oral, BID gabapentin, 300 mg= 1 cap, Oral, Daily glucagon, 1 mg= 1 EA, Subcutaneous, As Directed heparin, 5000 units= 1 mL, Subcutaneous, every 8 hr hydroCHLOROthiazide, 25 mg= 1 tab, Oral, Daily insulin aspart Sliding Scale - Medium Dose, Insulin Aspart Sliding Scale See Comments, Subcutaneous, AC levothyroxine, 100 mcg= 1 tab, Oral, Daily lisinopril, 40 mg= 2 tab, Oral, Daily magnesium oxide, 400 mg= 1 tab, Oral, Once metFORMIN, 500 mg= 1 tab, Oral, BID w/Meals Milk of Magnesia 8% oral suspension, 30 mL, Oral, Daily, PRN Norvasc, 10 mg= 2 tab, Oral, Daily semaglutide, 0.25 mg, Subcutaneous, every week sodium biphosphate-sodium phosphate 7 g-19 g rectal enema, 133 mL, MN, Daily, PRN Home aspirin 81 mg oral [...] tablet, 75 mg= 1 tab, Oral, Daily semaglutide 0.25 mg/0.5 mL (0.25 mg dose) subcutaneous solution, 0.25 mg, Subcutaneous, every week Electronically Signed on 09/21/22 03:41 PM Esperanza Garay * Esperanza Garay: PERFORM Event Display: Nutrition Note Authored Date: [id number] Assessment and Monitoring Follow Up ?? 52 yo M admit s/p stroke. Working with therapy and plan to go to rehab for further strength and conditioning. He's eating well, had no current questions or concerns about menu or his diet order. BS in 200s. meals are pretty balanced. Just started ozempic- monitor if that helps with blood sugars and increased SSI. using adaptive silverware to encourage self feeding given left sided weakness. has trach, but able to communicate. Monitoring. Nutrition Goals No s/sx hyper,hypoglycemia Euvolemic weight Vital WNL POs >75% of meals Nutrition Interventions adaptive silverware/equipment to enc self feeding Consistent carb/ low sodium FS ?? Anthropometrics/Estimated Needs Zwnhzi002.000 kg(Recorded: 09/11/2022 22:56 EDT) Thvxwn021.000 cm(Recorded: 09/11/2022 22:56 EDT) Body Mass Index52.550 kg/m2(Recorded: 09/11/2022 22:56 EDT) Reason for Visit left side weakness Problem List/Past Medical History Ongoing Morbid obesity Morbid obesity Historical No qualifying data Social History Electronic Cigarette/Vaping Electronic Cigarette Use: Never. Home/Environment Lives with Alone. Living situation: Home/Independent. Tobacco Never tobacco user Tobacco Use:. Diet Orders Diet Order, 09/11/22 21:31:00 EDT, Consistent Carbohydrates, Na: 2 g sodium Allergies No Known Medication Allergies Nutrition Lab Results Test Name Test Result Date/Time WBC 6.8 K/mcL 09/12/2022 05:17 EDT Hgb 13.6 g/dL 09/12/2022 05:17 EDT Hct 42.2 % 09/12/2022 05:17 EDT MCV 86.1 fL 09/12/2022 05:17 EDT Platelets 198 K/mcL 09/12/2022 05:17 EDT INR 1.0 09/12/2022 05:17 EDT Sodium Level 136 mmol/L 09/13/2022 05:15 EDT Potassium Level 4.2 mmol/L 09/13/2022 05:15 EDT Chloride Level 98 mmol/L 09/13/2022 05:15 EDT CO2 28 mmol/L 09/13/2022 05:15 EDT Alk Phos 37 IntlUnit/L 09/11/2022 19:25 EDT ALT 21 IntlUnit/L 09/11/2022 19:25 EDT BUN 13 mg/dL 09/13/2022 05:15 EDT Glucose Level 209 mg/dL 09/13/2022 05:15 EDT Creatinine Level 0.65 mg/dL 09/13/2022 05:15 EDT Albumin Level 3.9 g/dL 09/11/2022 19:25 EDT Bilirubin Total 0.8 mg/dL 09/11/2022 19:25 EDT Magnesium Level 1.8 mg/dL 09/13/2022 05:15 EDT Medications Inpatient aspirin, 81 mg= 1 tab, Oral, Daily atorvastatin, 40 mg= 2 tab, Oral, every evening bacitracin topical, 1 kenneth, Topical, Daily bisacodyl, 10 mg= 1 supp, MN, Daily, PRN Dextrose 50% injection, 25 g= 50 mL, IV Push, As Directed docusate-senna 50 mg-8.6 mg oral tablet, 2 tab, Oral, BID gabapentin, 300 mg= 1 cap, Oral, Daily glucagon, 1 mg= 1 EA, Subcutaneous, As Directed heparin, 5000 units= 1 mL, Subcutaneous, every 8 hr insulin aspart Sliding Scale - Medium Dose, Insulin Aspart Sliding Scale See Comments, Subcutaneous, AC levothyroxine, 100 mcg= 1 tab, Oral, Daily lisinopril, 40 mg= 2 tab, Oral, Daily Milk of Magnesia 8% oral suspension, 30 mL, Oral, Daily, PRN Norvasc, 10 mg= 2 tab, Oral, Daily Plavix, 75 mg= 1 tab, Oral, Daily sodium biphosphate-sodium phosphate 7 g-19 g rectal enema, 133 mL, MN, Daily, PRN Home aspirin 81 mg oral [...] tablet, 75 mg= 1 tab, Oral, Daily semaglutide 0.25 mg/0.5 mL (0.25 mg dose) subcutaneous solution, 0.25 mg, Subcutaneous, every week Electronically Signed on 09/16/22 02:52 PM Esperanza Garay * Esperanza Garay: PERFORM Event Display: Nutrition Note Authored Date: [id number] Assessment and Monitoring ?? Reason for Referral:??home diet diabetic ? Nutrition Assessment: 52 yo M admit w/ left sided weakness, dx: acute ischemic stroke. tried x 4 times to see patient butunable??busy all times. POs WNL.??On SSI, looks like takes Metformin at home and plan on adding??semaglutide. BS??mid 100-200s. plan to be discharged to stroke rehab. working with PT??now. Continue??con carb/low sodium. try to visit again as able. ? Monitor/Evaluation:?? Nutrition Diagnosis decreased sodium needs r/t altered labs as evidenced by elevated BPs. Decreased carb needs r/t impaired insulin production as evidenced by BS >200 and A1c 7.7% Nutrition Goals No s/sx aspiration No s/sx hyper,hypoglycemia labs wnl POs >75% of meals Nutrition Interventions Continue current diet edu. prn ?? Anthropometrics/Estimated Needs Tiecdj049.000 kg(Recorded: 09/11/2022 22:56 EDT) Gktjsa165.000 cm(Recorded: 09/11/2022 22:56 EDT) Body Mass Index52.550 kg/m2(Recorded: 09/11/2022 22:56 EDT) Estimated Energy Needs: 2400-2800kcal (14-16kcal/kg actual BW) Estimated Fluid Needs: 2400-2800ml (1ml/kcal) Estimated Protein Needs: 89-106g (1.0-1.2g/kg IBW) Reason for Visit left side weakness Problem List/Past Medical History Ongoing Morbid obesity Morbid obesity Historical No qualifying data Social History Electronic Cigarette/Vaping Electronic Cigarette Use: Never. Home/Environment Lives with Alone. Living situation: Home/Independent. Tobacco Never tobacco user Tobacco Use:. Diet Orders Diet Order, 09/11/22 21:31:00 EDT, Consistent Carbohydrates, Na: 2 g sodium Allergies No Known Medication Allergies Nutrition Lab Results Test Name Test Result Date/Time WBC 6.8 K/mcL 09/12/2022 05:17 EDT Hgb 13.6 g/dL 09/12/2022 05:17 EDT Hct 42.2 % 09/12/2022 05:17 EDT MCV 86.1 fL 09/12/2022 05:17 EDT Platelets 198 K/mcL 09/12/2022 05:17 EDT INR 1.0 09/12/2022 05:17 EDT Sodium Level 136 mmol/L 09/13/2022 05:15 EDT Potassium Level 4.2 mmol/L 09/13/2022 05:15 EDT Chloride Level 98 mmol/L 09/13/2022 05:15 EDT CO2 28 mmol/L 09/13/2022 05:15 EDT Alk Phos 37 IntlUnit/L 09/11/2022 19:25 EDT ALT 21 IntlUnit/L 09/11/2022 19:25 EDT BUN 13 mg/dL 09/13/2022 05:15 EDT Glucose Level 209 mg/dL 09/13/2022 05:15 EDT Creatinine Level 0.65 mg/dL 09/13/2022 05:15 EDT Albumin Level 3.9 g/dL 09/11/2022 19:25 EDT Bilirubin Total 0.8 mg/dL 09/11/2022 19:25 EDT Magnesium Level 1.8 mg/dL 09/13/2022 05:15 EDT Medications Inpatient aspirin, 81 mg= 1 tab, Oral, Daily atorvastatin, 40 mg= 2 tab, Oral, every evening Dextrose 50% injection, 25 g= 50 mL, IV Push, As Directed gabapentin, 300 mg= 1 cap, Oral, Daily glucagon, 1 mg= 1 EA, Subcutaneous, As Directed insulin aspart Sliding Scale - Low Dose, Insulin Aspart Sliding Scale See Comments, Subcutaneous, AC & bedtime levothyroxine, 100 mcg= 1 tab, Oral, Daily lisinopril, 20 mg= 1 tab, Oral, Daily Norvasc, 5 mg= 1 tab, Oral, Daily Plavix, 75 mg= 1 tab, Oral, Daily Home aspirin 81 mg oral capsule, 81 [...] tablet, 75 mg= 1 tab, Oral, Daily semaglutide 0.25 mg/0.5 mL (0.25 mg dose) subcutaneous solution, 0.25 mg, Subcutaneous, every week Electronically Signed on 09/14/22 03:08 PM Esperanza Garay Progress note * Asad Troncoso MD: PERFORM Event Display: Progress Note - Physician Authored Date: [id number] MELANY POP :1970 Age:52 years Sex:Male Visit Date:09/11/2022 Subjective The patient feels better this morning. Review of Systems Constitutional:??Feels better this morning. ??No nausea. ENT: [No ear pain, nasal congestion, sore throat] Respiratory: [No shortness of breath, cough] Cardiovascular: [No Chest pain, palpitations, syncope] Gastrointestinal: [No nausea, vomiting, diarrhea] Genitourinary: [No hematuria] Musculoskeletal: [No back pain, neck pain, joint pain, muscle pain, decreased range of motion] Neurologic: Feels he has not made any progress overnight but does not have vertigo. Objective Vitals & Measurements T:??36.0?C ??(Temporal Artery)?? HR:??88??(Peripheral)?? RR:??14?? BP:??138/93?? SpO2:??93%?? Pain Score:??0?? O2 Therapy:??Room air?? Physical Exam General: Oriented x4, morbidly obese..?? HENT: Trach in place..?? Lungs:??Clear to auscultation and percussion, non-labored respiration.?? Heart:??Normal rate, regular rhythm, no murmur, gallop or edema. Abdomen:??Soft, non-tender, non-distended, normal bowel sounds, no masses.?? Musculoskeletal:??Normal range of motion and strength, no tenderness or swelling. Skin:??Skin is warm, dry and pink, no rashes or lesions. Neurologic: Patient has no skew, no nystagmus, appropriate??saccades?? Patient??has no improvement in left upper extremity or left lower extremity today. Lab Results Labs??(Last four charted values) WBC ?7.7?(SEP 30)?7.3?(SEP 23)?7.1?(SEP 20)?7.2?(SEP 18) Hgb ?L??13.6?(SEP 30)?14.5?(SEP 23)?14.4?(SEP 20)?L??13.8?(SEP 18) Hct ?L??41.2?(SEP 30)?43.7?(SEP 23)?43.7?(SEP 20)?42.2?(SEP 18) Plt ?202?(SEP 30)?182?(SEP 23)?197?(SEP 20)?200?(SEP 18) Na ?138?(SEP 30)?L??133?(AUG 09)?136?(SEP 06)?136?(SEP 04) K ?3.8?(SEP 16)?3.7?(SEP 09)?4.2?(SEP 06)?3.7?(SEP 04) CO2 ?29?(SEP 16)?27?(SEP 09)?31?(SEP 06)?31?(SEP 04) Cr ?0.71?(SEP 16)?0.66?(SEP 09)?0.78?(SEP 06)?0.76?(SEP 04) BUN ?14?(SEP 16)?16?(SEP 09)?20?(SEP 06)?16?(SEP 04) Glucose Random ?H??172?(SEP 16)?H??234?(SEP 09)?H??246?(SEP 06)?H??202?(SEP 04) PT ?10.4?(SEP 12)?9.9?(SEP 11) INR ?1.0?(SEP 12)?1.0?(SEP 11) Assessment/Plan 1.??Acute ischemic stroke??I63.9 Aspirin and Brilinta, statin. ??Allow for some permissive hypertension in this patient. ??He does refuse??telemetry although??I would advise it.?? He will greatly benefit from acute rehab but we cannot get him to a facility currently.?? He has been here for quite some time. 2.??Morbid obesity??E66.01 Nutrition consult. 3.??Hypertension??I10 Of hypertension. ??We will increase Norvasc??if??blood pressure becomes too elevated. 4.??Diabetes??E11.9 In the setting of vertigo, I will hold the Ozempic for now. 5.??BPV (benign positional vertigo)??H81.10 Seems to be benign positional vertigo, happening during positional transitions, happening during physical therapy.?? [place] testing appropriate for??BPV. ??Nonetheless CT head undertaken which was negative. ??Abortive meclizine. ?? Time spent on patient care today is 40 minutes. Orders: meclizine, 12.5 mg = 1 tab, Oral, Tab, every 6 hr for 30 days, PRN dizziness, First Dose: 10/02/22 9:01:00 EDT, Stop Date: 11/01/22 9:00:00 EDT, Physician Stop, Routine semaglutide, 0.25 mg, Subcutaneous, Wednesday, First Dose: 09/21/22 11:00:00 EDT, Routine, Use [employer] Electronically Signed on 10/02/22 09:06 AM Aba ALVARADO, Asad * Aba ALVARADO, Asad: PERFORM Event Display: Progress Note - Physician Authored Date: [id number] MELANY POP :1970 Age:52 years Sex:Male Visit Date:09/11/2022 Subjective The patient has no complaints. Review of Systems Constitutional: Some positional vertigo, not current ENT:??No ear pain, nasal congestion, sore throat Respiratory:??No shortness of breath, cough Cardiovascular:??No Chest pain, palpitations, syncope Gastrointestinal:??No nausea, vomiting, diarrhea Genitourinary:??No hematuria Musculoskeletal:??No back pain, neck pain, joint pain, muscle pain, decreased range of motion Neurologic: Change in left upper extremity or left lower extremity strength.?? No further tingling in right upper extremity Objective Vitals & Measurements T:??36.5?C ??(Temporal Artery)?? TMIN:??35.8?C ??(Temporal Artery)?? TMAX:??36.5?C ??(Temporal Artery)?? HR:??79??(Peripheral)?? BP:??154/98?? SpO2:??91%?? WT:??173??kg?? Pain Score:??0??O2 Therapy:??Room air?? Physical Exam General: Oriented x4, morbidly obese..?? HENT:??Normocephalic, clear tympanic membranes, normal hearing, moist oral mucosa, no scleral icterus, no sinus tenderness.?? Lungs:??Clear to auscultation and percussion, non-labored respiration.?? Heart:??Normal rate, regular rhythm, no murmur, gallop or edema. Abdomen:??Soft, non-tender, non-distended, normal bowel sounds, no masses.?? Musculoskeletal:??Normal range of motion and strength, no tenderness or swelling. Skin:??Skin is warm, dry and pink, no rashes or lesions. Neurologic: Left upper extremity without change, cannot wiggle fingers. ??Left, small wiggling of toes,??knee joint strong. Lab Results Labs??(Last four charted values) WBC ?7.7?(SEP 30)?7.3?(AUG 09)?7.1?(AUG 06)?7.2?(AUG 04) Hgb ?L??13.6?(AUG 16)?14.5?(AUG 09)?14.4?(AUG 06)?L??13.8?(AUG 04) Hct ?L??41.2?(AUG 16)?43.7?(AUG 09)?43.7?(AUG 06)?42.2?(AUG 04) Plt ?202?(AUG 16)?182?(AUG 09)?197?(AUG 06)?200?(AUG 04) Na ?138?(AUG 16)?L??133?(AUG 09)?136?(AUG 06)?136?(AUG 04) K ?3.8?(AUG 16)?3.7?(AUG 09)?4.2?(AUG 06)?3.7?(AUG 04) CO2 ?29?(AUG 16)?27?(AUG 09)?31?(SEP 20)?31?(SEP 18) Cr ?0.71?(SEP 30)?0.66?(SEP 23)?0.78?(SEP 20)?0.76?(SEP 18) BUN ?14?(SEP 30)?16?(SEP 23)?20?(SEP 20)?16?(SEP 18) Glucose Random ?H??172?(SEP 30)?H??234?(SEP 23)?H??246?(SEP 20)?H??202?(SEP 18) PT ?10.4?(SEP 12)?9.9?(SEP 11) INR ?1.0?(SEP 12)?1.0?(SEP 11) Assessment/Plan 1.??Acute ischemic stroke??I63.9 Brilinta, aspirin, statin, allowing for some permissive hypertension in this case.?? Transfer to acute??rehabilitation would be advantageous. 2.??Morbid obesity??E66.01 Nutrition consult, diet controlled. 3.??Hypertension??I10 Allowing for a??small amount of permissive hypertension??specifically in this case. 4.??Diabetes??E11.9 Semaglutide, metformin, blood sugars are better. ?? Time??spent on patient care today is 40 minutes. Orders: meclizine, 12.5 mg = 1 tab, Oral, Tab, every 6 hr for 30 days, PRN dizziness, First Dose: 10/01/22 9:25:00 EDT, Stop Date: 10/31/22 9:24:00 EDT, Physician Rachel, Routine Electronically Signed on 10/01/22 09:28 AM Aba ALVARADO, Asad * Aba ALVARADO, Asad: PERFORM Event Display: Progress Note - Physician Authored Date: [id number] MELANY POP :1970 Age:52 years Sex:Male Visit Date:09/11/2022 Subjective The patient has no complaints. Review of Systems Constitutional: He is rolled, or stands up fast, he has??mild??self-limiting??nonvertigo??dizzinesswithout any focal neurological signs that lasts only for seconds. ENT:??No ear pain, nasal congestion, sore throat Respiratory:??No shortness of breath, cough Cardiovascular:??No Chest pain, palpitations, syncope Gastrointestinal:??No nausea, vomiting, diarrhea Genitourinary:??No hematuria Musculoskeletal:??No back pain, neck pain, joint pain, muscle pain, decreased range of motion Neurologic:??Alert & oriented X 4 Objective Vitals & Measurements T:??35.5?C ??(Temporal Artery)?? TMIN:??35.5?C ??(Temporal Artery)?? TMAX:??36.2?C ??(Temporal Artery)?? HR:??75??(Peripheral)?? BP:??161/99?? SpO2:??99%?? Pain Score:??3?? O2 Therapy:??Room air?? Physical Exam General: Oriented x4, obese..?? HENT:'s..?? Lungs:??Clear to auscultation and percussion, non-labored respiration.?? Heart:??Normal rate, regular rhythm, no murmur, gallop or edema. Abdomen:??Soft, non-tender, non-distended, normal bowel sounds, no masses.?? Musculoskeletal:??Normal range of motion and strength, no tenderness or swelling. Skin:??Skin is warm, dry and pink, no rashes or lesions. Neurologic: No improvement in left upper arm, can still not wiggle fingers. ??Some improvement in left lower extremity??and that is same much as his left lower extremity has been improving??quite well??compared to his left upper extremity. Assessment/Plan 1.??Acute ischemic stroke??I63.9 Plavix, Brilinta, atorvastatin.?? Try to allow for some elements of permissive hypertension??even at this point??per teleneurology. ?? Transfer to an acute care facility would be optimal. 2.??Morbid obesity??E66.01 Nutrition consult. 3.??Hypertension??I10 Per teleneurology second visit,??allow for elements of permissive hypertension??continuously. 4.??Diabetes??E11.9 Metformin, semaglutide, scale. ?? Time??spent??on patient care today is 40 minutes. Orders: Basic Metabolic Panel, Blood, Routine, 09/29/22 15:48:00 EDT, every morning, for 1 days, Lab Collect CBC w/ Diff, Blood, Routine, 09/29/22 15:48:00 EDT, every morning, for 1 days, Lab Collect Magnesium Level, Blood, Routine, 09/29/22 15:49:00 EDT, every morning, for 1 days, Lab Collect Electronically Signed on 09/30/22 10:10 AM Asad Troncoso MD History and physical note * Colon FROG CATCHER, Walt: PERFORM Colon FROG CATCHER, Walt: PERFORM, MODIFY Colon FROG CATCHER, Walt: MODIFY, MODIFY Colon FROG CATCHER, Walt: MODIFY, MODIFY Colon FROG CATCHER, Walt: MODIFY Event Display: History and Physical Authored Date: [id number] MELANY POP :1970 Age:52 years Sex:Male Visit Date:09/11/2022 Chief Complaint pt reports left arm leg weakness aNDS UNBALANCED 5HRS [employer] History of Present Illness 52 yr old male morbidly obese with pmhx of DM2, HTN, hypothyroidism, s/p tracheostomy about a yr ago [place] [facility] [place] in for left sided weakness. Condition started 2pm when he was working and noted left sided weakness. He went to the hospital at 7pm and was out of the window for tpa. CT b rain done with no acute findings. CTA neck with mild stenosis left (15-20%) left ICA. tele neuro consult done and was advised to?? give 300 mg Plavix, 325 mg of aspirin,??atorvastatin 40. ??Patient will need to be admitted for further stroke work-up including hemoglobin A1c, lipids. Review of Systems Constitutional: No fevers, chills, sweats Eye: No recent visual problems ENT: No ear pain, nasal congestion, sore throat Respiratory: No shortness of breath,?? +cough Cardiovascular: No Chest pain, palpitations, syncope Gastrointestinal: No nausea, vomiting, diarrhea Genitourinary: No hematuria Rafi/Lymph: Negative for bruising tendency, swollen lymph glands Endocrine: Negative for excessive thirst, excessive hunger Musculoskeletal: No back pain, neck pain, joint pain, muscle pain, decreased range of motion Integumentary: No rash, pruritus, abrasions Neurologic: Alert & oriented X 4 left Upper and lower extremity weakness Psychiatric: No anxiety, depression Physical Exam Vitals & Measurements T:??37?C ??(Tympanic)?? HR:??85??(Peripheral)?? RR:??18?? BP:??170/106?? SpO2:??97%?? HT:??183.000??cm?? WT:??176.00??kg?? BMI:??53.000?? O2 Therapy:??Room air?? General: Alert and oriented, well nourished,?No??acute distress Eye: PERRL, EOMI,?Normal??conjunctiva HENT: Normocephalic, atraumatic Neck:?No??lymphadenopathy, with tracheostomy Lungs:??Clear??to auscultation ,?Non-labored?? respiration Heart:?Normal?? rate,?Regular??rhythm Abdomen: Soft, non-tender, non-distended,?Normal?? bowel sounds,?? Musculoskeletal:?Normal?? range of motion and strength,?No??tenderness,?No??swelling Skin: Skin is warm, dry and pink,?No??rashes,?No??lesions Neurologic: Awake, alert and oriented X4, CN II-XII, except??CN??VII with shallow left nasolabial fold,??motor: right UE/LE 5/5, ??weak hand snuff grinder left , strength left UA 3/5, strength left LE 4/5, Psychiatric: Cooperative, appropriate mood and affect Assessment/Plan 1.??Acute ischemic stroke??I63.9 admit to med surgery floor as?inpatient. permissive HTN telemetry monitoring neurochecks q1 fall precaution asa 325mg po daily plavix 75mg po daily atorvastatin 40mg po daily head CT non contrast in am hgb a1c PT/OT eval and treat ?? 2. DM type 2 consistent carbohydrate diet ISS aspart ACHS ?? 3. HTN lisinopril 20mg po daily ?? 4. hypothyroidism levothyroxine 100mcg po daily ?? 5. DVT prophylaxis: plavix, asa ?? 6. code status: full code ? Orders: gabapentin, 300 mg = 1 cap, Oral, Cap, Daily, First Dose: 09/12/22 9:00:00 EDT, Routine glucagon, 1 mg = 1 EA, Subcutaneous, Injection, As Directed, First Dose: 09/11/22 21:33:00 EDT, Physician Stop, Routine Dextrose 50% injection, 25 g = 50 mL, IV Push, Injection, As Directed, First Dose: 09/11/22 21:33:00 EDT, Physician Stop, Routine insulin aspart Sliding Scale - Low Dose, Insulin Aspart Sliding Scale See Comments, Subcutaneous, Soln, AC & bedtime, First Dose: 09/11/22 22:00:00 EDT, Routine levothyroxine, 100 mcg = 1 tab, Oral, Tab, Daily, First Dose: 09/12/22 6:30:00 EDT, Routine lisinopril, 20 mg = 1 tab, Oral, Tab, Daily, First Dose: 09/12/22 9:00:00 EDT, Routine Basic Metabolic Panel, Blood, Routine, 09/11/22 21:32:00 EDT, Daily, for 3 days, Lab Collect Bedrest with Bathroom Privileges, 09/11/22:31:00 EDT, Constant Order, 09/11/22::00 EDT CBC w/ Diff, Blood, Routine, 09/11/22:32:00 EDT, Daily, for 3 days, Lab Collect Diet Order, 09/11/22: EDT, Consistent Carbohydrates, Na: 2 g sodium Low risk VTE, 09/11/22:31:00 EDT, Low risk, no mechanical VTE prophylaxis required Magnesium Level, Blood, Routine, 09/11/22:32:00 EDT, Daily, for 3 days, Lab Collect MRI Brain w/o Contrast, 09/12/22 6:00:00 EDT, In AM, Reason: stroke, No, No, Transport Mode: Patient Bed Neurovascular Assessment, 09/11/22::00 EDT, every 1 hr Patient Condition, 09/11/22:31:00 EDT, Condition Guarded Physical Therapy Evaluation and Treatment, 09/11/22:31:00 EDT, Once PSO Admit to Inpatient, Abhilash, Inpatient, 09/11/22:26:00 EDT, 09/11/22::00 EDT, 09/11/22::00 EDT, 1 midnight or less PT/ INR, Blood, Routine, 09/11/22:32:00 EDT, Daily, for 3 days, Lab Collect Resuscitation Status, 09/11/22:31:00 EDT, Full Code Vital Signs, 09/11/22:00 EDT, every 4 hr (parviz) Problem List/Past Medical History Ongoing Morbid obesity Historical No qualifying data Medications Inpatient aspirin, 325 mg= 1 tab, Oral, Daily atorvastatin, 40 mg= 2 tab, Oral, every evening Dextrose 50% injection, 25 g= 50 mL, IV Push, As Directed gabapentin, 300 mg= 1 cap, Oral, Daily glucagon, 1 mg= 1 EA, Subcutaneous, As Directed insulin aspart Sliding Scale - Low Dose, Insulin Aspart Sliding Scale See Comments, Subcutaneous, AC & bedtime levothyroxine, 100 mcg= 1 tab, Oral, Daily lisinopril, 20 mg= 1 tab, Oral, Daily Home gabapentin 300 mg oral capsule levothyroxine 100 mcg (0.1 mg) oral tablet lisinopril 20 mg oral tablet metFORMIN 1000 mg oral tablet Allergies No Known Medication Allergies Social History Electronic Cigarette/Vaping Electronic Cigarette Use: Never. Tobacco Never tobacco user Tobacco Use:. Lab Results Test Name Test Result Date/Time WBC 7.4 K/mcL 09/11/2022 19:25 EDT RBC 5.24 Million/mcL 09/11/2022 19:25 EDT Hgb 14.4 g/dL 09/11/2022 19:25 EDT Hct 45.0 % 09/11/2022 19:25 EDT MCV 85.9 fL 09/11/2022 19:25 EDT MCH 27.5 pg 09/11/2022 19:25 EDT MCHC 32.0 g/dL 09/11/2022 19:25 EDT RDW-CV 13.4 % 09/11/2022 19:25 EDT Platelets 223 K/mcL 09/11/2022 19:25 EDT MPV 9.5 fL 09/11/2022 19:25 EDT Neutro Auto 71.1 % 09/11/2022 19:25 EDT Lymph Auto 14.5 % 09/11/2022 19:25 EDT Stanly Auto 7.2 % 09/11/2022 19:25 EDT Eos, Auto 5.00 % 09/11/2022 19:25 EDT Basophil Auto 1.0 % 09/11/2022 19:25 EDT Imm Gran Auto 1.2 % 09/11/2022 19:25 EDT Neutro Absolute 5.2 K/mcL 09/11/2022 19:25 EDT Lymph Absolute 1.1 K/mcL 09/11/2022 19:25 EDT Stanly Absolute 0.5 K/mcL 09/11/2022 19:25 EDT Eos Absolute 0.4 K/[facility] 09/11/2022 19:25 EDT Baso Absolute 0.1 K/mcL 09/11/2022 19:25 EDT Imm Gran Absolute 0.09 09/11/2022 19:25 EDT Slide Review Not Indicated 09/11/2022 19:25 EDT Prothrombin Time 9.9 seconds 09/11/2022 19:25 EDT INR 1.0 09/11/2022 19:25 EDT Sodium Level 135 mmol/L 09/11/2022 19:25 EDT Potassium Level 4.3 mmol/L 09/11/2022 19:25 EDT Chloride Level 101 mmol/L 09/11/2022 19:25 EDT CO2 25 mmol/L 09/11/2022 19:25 EDT Alk Phos 37 IntlUnit/L 09/11/2022 19:25 EDT AST 26 IntlUnit/L 09/11/2022 19:25 EDT ALT 21 IntlUnit/L 09/11/2022 19:25 EDT BUN 13 mg/dL 09/11/2022 19:25 EDT Glucose Level 230 mg/dL 09/11/2022 19:25 EDT Creatinine Level 0.72 mg/dL 09/11/2022 19:25 EDT BUN/Creat Ratio 18.1 09/11/2022 19:25 EDT eGFR CKD-EPI 111 mL/min/1.73 m2 09/11/2022 19:25 EDT Calcium Level 8.7 mg/dL 09/11/2022 19:25 EDT Protein Total 7.4 g/dL 09/11/2022 19:25 EDT Albumin Level 3.9 g/dL 09/11/2022 19:25 EDT Globulin 3.5 09/11/2022 19:25 EDT A/G Ratio 1.1 09/11/2022 19:25 EDT Bilirubin Total 0.8 mg/dL 09/11/2022 19:25 EDT Anion Gap 9.0 09/11/2022 19:25 EDT eAvg Glucose 174 mg/dL 09/11/2022 19:25 EDT Osmolality 278 mOsm/kg 09/11/2022 19:25 EDT Glucose POC 219 09/11/2022 19:26 EDT Hgb A1c Percent 7.7 % 09/11/2022 19:25 EDT .Hb 14.9 g/dL 09/11/2022 19:25 EDT .Hgb A1c 0.9 g/dL 09/11/2022 19:25 EDT Troponin-I HS 17 ng/L 09/11/2022 19:25 EDT Electronically Signed on 09/13/22 12:18 PM Colon Walt AWAN Discharge summary * Asad Troncoso MD: MODIFY Asad Troncoso MD: MODIFY Event Display: Discharge Summary Authored Date: [id number] MELANY POP :1970 Age:52 years Sex:Male Visit Date:09/11/2022 Hospital Course 52-year-old male with uncontrolled hypertension diabetes??morbid obesity??presented with left-sidedhemiparesis found to have an MCA territory stroke without??large vessel occlusions and without atrial fibrillation on 3 days of telemetry??and sent rehab with dual antiplatelet therapy, Lipitor 40 mg. ?? We also initiated and got??insurance approval for semaglutide for??uncontrolled diabetes with his A1c of 7.7.?? For his hypertension he has been started on Norvasc??5 mg Physical Exam Vitals & Measurements T:??36.3?C ??(Temporal Artery)?? TMIN:??35.4?C ??(Temporal Artery)?? TMAX:??36.3?C ??(Temporal Artery)?? HR:??74??(Peripheral)?? BP:??174/92?? SpO2:??93%?? Pain Score:??0?? O2 Therapy:??Room air?? General:??Alert and oriented, well nourished, No acute distress Eye:??PERRL, EOMI, normal conjunctiva Lungs:??Clear to auscultation and percussion, Non-labored respiration Heart:??Normal rate, Normal rhythm, No murmur, No gallop Abdomen:??Soft, non-tender, non-distended, normal bowel sounds, no masses Left leg and little bit stronger, continued??pretty dense hemiparesis in the left hand Speech and cognition normal Medications Inpatient aspirin, 81 mg= 1 tab, Oral, Daily atorvastatin, 40 mg= 2 tab, Oral, every evening Dextrose 50% injection, 25 g= 50 mL, IV Push, As Directed gabapentin, 300 mg= 1 cap, Oral, Daily glucagon, 1 mg= 1 EA, Subcutaneous, As Directed insulin aspart Sliding Scale - Low Dose, Insulin Aspart Sliding Scale See Comments, Subcutaneous, AC & bedtime levothyroxine, 100 mcg= 1 tab, Oral, Daily lisinopril, 20 mg= 1 tab, Oral, Daily Norvasc, 5 mg= 1 tab, Oral, Daily Plavix, 75 mg= 1 tab, Oral, Daily Home aspirin 81 mg oral capsule, 81 [...] tablet, 75 mg= 1 tab, Oral, Daily semaglutide 0.25 mg/0.5 mL (0.25 mg dose) subcutaneous solution, 0.25 mg, Subcutaneous, every week Social History Electronic Cigarette/Vaping Electronic Cigarette Use: Never. Tobacco Never tobacco user Tobacco Use:. Diagnostic Results X-Ray:?? Computed Tomography: ?? CT Angio Brain/Head ?? 09/11/22 19:34:59 PROCEDURE INFORMATION: Exam: CTA Head With Contrast, Arteriography Exam date and time: 09/11/2022 7:34 PM Age: 52 years old Clinical indication: Stroke-like symptoms; Left facial droop; Left-sided weakness ?? TECHNIQUE: Imaging protocol: Computed tomographic angiography of the head with contrast. Exam focused on the arteries. 3D rendering (Not supervised by radiologist): MIP and/or 3D reconstructed images were created by the technologist. Radiation optimization: All CT scans at this facility use at least one of these dose optimization techniques: automated exposure control; mA and/or kV adjustment per patient size (includes targeted exams where dose is matched to clinical indication); or iterative reconstruction. Contrast material: ISOVUE 370; Contrast volume: 100 ml; Contrast route: INTRAVENOUS (IV); ?? REPORTING DATA: Count of CT and Cardiac NM exams in prior 12 months: This patient has received 0 known CTs and 0 known cardiac nuclear medicine studies in the 12 months prior to the current study. ?? COMPARISON: No relevant prior studies available. ?? FINDINGS: ANTERIOR CIRCULATION: Right internal carotid artery: Intracranial segment is patent with no significant stenosis. No aneurysm. Right middle cerebral artery: No occlusion or significant stenosis. No aneurysm. Right anterior cerebral artery: No occlusion or significant stenosis. No aneurysm. ?? Left internal carotid artery: Intracranial segment is patent with no significant stenosis. No aneurysm. Left middle cerebral artery: No occlusion or significant stenosis. No aneurysm. ?? Left anterior cerebral artery: No occlusion or significant stenosis. No aneurysm. ?? POSTERIOR CIRCULATION: Right vertebral artery: Patent dominant right vertebral artery without focal stenosis or occlusion. Left vertebral artery: No occlusion or significant stenosis. No aneurysm. Basilar artery: No occlusion or significant stenosis. No aneurysm. Right posterior cerebral artery: origin of a patent right posterior cerebral artery. No focal stenosis or occlusion. Left posterior cerebral artery: No occlusion or significant stenosis. No aneurysm. ?? Brain: A few scattered small areas of decreased density in the periventricular white matter which are likely secondary to chronic ischemia from microvascular change. Scattered old lacunar infarcts in each basal ganglia region. No acute intracranial hemorrhage. Mild diffuse cerebral atrophy. Cerebral ventricles: Ventricular prominence in this patient with mild diffuse cerebral atrophy. Mastoid air cells: Normally aerated mastoid air cells. Paranasal sinuses: No significant disease of the paranasal sinuses. Bones/joints: Unremarkable for patient age. Soft tissues: Unremarkable. ?? IMPRESSION: 1. No acute intracranial findings on initial unenhanced CT head images. 2. Mild diffuse cerebral atrophy. Age-related periventricular white matter changes. 3. CTA head within normal limits. No large vessel occlusion. No aneurysm. 4. ASPECTS (Kyung Stroke Program Early CT Score) = 10. ? THIS DOCUMENT HAS BEEN ELECTRONICALLY SIGNED BY SIMONE BURROUGHS MD on 09/11/2022 08:06 PM ?? Signed By: Simone Burroughs MD ?? CT Angio Neck ?? 09/11/22 19:34:59 PROCEDURE INFORMATION: Exam: CTA Neck With Contrast Exam date and time: 09/11/2022 7:34 PM Age: 52 years old Clinical indication: Stroke-like symptoms; Left facial droop; Left-sided weakness ?? TECHNIQUE: Imaging protocol: Computed tomographic angiography of the neck with contrast. 3D rendering (Not supervised by radiologist): MIP and/or 3D reconstructed images were created by the technologist. Radiation optimization: All CT scans at this facility use at least one of these dose optimization techniques: automated exposure control; mA and/or kV adjustment per patient size (includes targeted exams where dose is matched to clinical indication); or iterative reconstruction. Contrast material: ISOVUE 370; Contrast volume: 100 ml; Contrast route: INTRAVENOUS (IV); ?? REPORTING DATA: Count of CT and Cardiac NM exams in prior 12 months: This patient has received 0 known CTs and 0 known cardiac nuclear medicine studies in the 12 months prior to the current study. ?? COMPARISON: No relevant prior studies available. ?? FINDINGS: Right common carotid artery: No stenosis. No dissection or occlusion. Right internal carotid artery: Minimal calcific plaque within the medial origin of the right internal carotid artery without stenosis or occlusion. Right external carotid artery: No occlusion or stenosis of the origin. ?? Left common carotid artery: No stenosis. No dissection or occlusion. Left internal carotid artery: Calcific plaque within the proximal left internal carotid artery region producing approximately 15-20% stenosis. Left external carotid artery: No occlusion or stenosis of the origin. ?? Right vertebral artery: Patent dominant right vertebral artery. No focal stenosis or occlusion. Left vertebral artery: No stenosis. No dissection or occlusion. ?? Soft tissues: Left posterior subcutaneous lipoma at approximately the C3 / C4 level. Bones/joints: No acute fracture. ?? IMPRESSION: 1. Calcific plaque within the proximal left internal carotid artery region producing approximately 15-20% stenosis. 2. Patent right carotid system and vertebral arteries. ? REFERENCES: NASCET CRITERIA. The degree of stenosis in the cervical segment of the internal carotid artery is based on NASCET criteria. Normal is no stenosis. Mild is less than 50% stenosis. Moderate is 50-69% stenosis. Severe is 70% to 99% stenosis. Total occlusion is no detectable patent lumen. ? THIS DOCUMENT HAS BEEN ELECTRONICALLY SIGNED BY SIMONE BURROUGHS MD on 09/11/2022 08:14 PM ?? Signed By: Simone Burroughs MD ?? CT Spine Cervical w/o Contrast ?? 09/12/22 05:27:53 PROCEDURE INFORMATION: Exam: CT Cervical Spine Without Contrast Exam date and time: 09/12/2022 5:27 AM Age: 52 years old Clinical indication: Injury or trauma; Fall; Blunt trauma; Injury details: PT fell in hospital trying to go to bathroom without assistance ?? TECHNIQUE: Imaging protocol: Computed tomography of the cervical spine without contrast. Radiation optimization: All CT scans at this facility use at least one of these dose optimization techniques: automated exposure control; mA and/or kV adjustment per patient size (includes targeted exams where dose is matched to clinical indication); or iterative reconstruction. ?? REPORTING DATA: Count of CT and Cardiac NM exams in prior 12 months: This patient has received 2 known CTs and 0 known cardiac nuclear medicine studies in the 12 months prior to the current study. ?? COMPARISON: CT ANGIO NECK 09/11/2022 7:34 PM ?? FINDINGS: Bones/joints: No acute fracture. Normal alignment. No significant disc bulge or herniation. No severe spinal canal stenosis. No significant neural foraminal narrowing. ?? Lungs: Lung apices are normal. ?? Soft tissues: Unremarkable. ?? IMPRESSION: No acute findings. ? THIS DOCUMENT HAS BEEN ELECTRONICALLY SIGNED BY CHANTELLE CASAS MD on 09/12/2022 06:00 AM ?? Signed By: Chantelle Casas MD ?? CT Head w/o Contrast ?? 09/14/22 10:34:56 EXAM DESCRIPTION: CT Head w/o Contrast ?? 09/14/2022 ?? INDICATION: >24 HR COMPLETE L HEMIPARESIS ?? TECHNIQUE: All CT scans at this facility use at least one of these dose optimization techniques: Automated exposure control; mA and/or kV adjustment per patient size (includes targeted exams where dose is matched to clinical indication); or iterative reconstruction. ?? Axial CT images of the head without contrast. ?? COMPARISON: CT head without contrast from 09/12/[address] angiography head/neck examination from 09/11/2022 ?? FINDINGS: No acute intracranial hemorrhage, mass effect or midline shift. Ovoid area of low attenuation in the posterior limb of the right internal capsule measuring approximately 10 x 6 mm suspicious for acute or recent lacunar infarct which has become apparent since recent studies. Subtle vasogenic edema in the right posterior frontal-parietal region, and involving right MCA distribution is suspected. No hydrocephalus. Basal cisterns remain patent. ?? The calvarium appears intact. ?? The visualized paranasal sinuses are grossly clear. ?? IMPRESSION: Lacunar infarct in the posterior limb right internal capsule measuring approximately 10 x 6 mm which has become apparent since recent CT examinations. Evolving right MCA distribution infarct is suspected as well as described above. No acute intracranial hemorrhage, mass effect or midline shift. ?? Results telephoned to hospitalist physician at the time of interpretation. ? JOB #: [id number] Electronically Signed By: ?? Signed By: Duy Silva MD ?? CT Head w/o Contrast ?? 09/12/22 05:27:53 PROCEDURE INFORMATION: Exam: CT Head Without Contrast Exam date and time: 09/12/2022 5:27 AM Age: 52 years old Clinical indication: Injury or trauma; Fall; Blunt trauma (contusions or hematomas); Consciousness not specified; Injury details: PT fell in hospital while trying to go to bathroom unassisted; Additional info: Stroke ?? TECHNIQUE: Imaging protocol: Computed tomography of the head without contrast. Radiation optimization: All CT scans at this facility use at least one of these dose optimization techniques: automated exposure control; mA and/or kV adjustment per patient size (includes targeted exams where dose is matched to clinical indication); or iterative reconstruction. ?? REPORTING DATA: Count of CT and Cardiac NM exams in prior 12 months: This patient has received 2 known CTs and 0 known cardiac nuclear medicine studies in the 12 months prior to the current study. ?? COMPARISON: CT ANGIO HEAD 09/11/2022 7:34 PM ?? FINDINGS: Brain: No hemorrhage. No mass effect. No midline shift. Cerebral ventricles: No ventriculomegaly. Paranasal sinuses: Visualized sinuses are unremarkable. No fluid levels. Mastoid air cells: Visualized mastoid air cells are well aerated. ?? Bones/joints: Unremarkable. No acute fracture. Soft tissues: Unremarkable. ?? IMPRESSION: No acute intracranial abnormality. ?? 249 images. Sagittal and coronal reformatted images are submitted for review. ? THIS DOCUMENT HAS BEEN ELECTRONICALLY SIGNED BY CHANTELLE CASAS MD on 09/12/2022 05:59 AM ?? Signed By: Chantelle Casas MD Ultrasound:?? MRI:?? Echo:?? Mammography:?? Position Emission Tomography (PET):?? Bone Densitometry:?? Discharge Plan 1.??Acute ischemic stroke??I63.9 left-sided hemiparesis found to have an MCA territory stroke without??large vessel occlusions and without atrial fibrillation on 3 days of telemetry??and sent rehab with dual antiplatelet therapy, Lipitor 40 mg.?? We also initiated and got??insurance approval for semaglutide for??uncontrolled diabetes with his A1c of 7.7. Being sent to stroke rehab given deficits, patient extremely motivated to rehab??has a motivated family as well.?? We will arrange for outpatient follow- up with Dr. Hopkins here Ordered: Norvasc, 5 mg = 1 tab, Oral, Tab, Daily, First Dose: 09/14/22 8:44:00 EDT, Physician Stop, NOW Norvasc 5 mg oral tablet, 5 mg = 1 tab, Oral, Daily, 0 Refill(s) aspirin 81 mg oral capsule, 81 mg =, Oral, Daily, 0 Refill(s) Cardiac Monitoring, 09/14/22 11:55:00 EDT, May be off for activity: Yes, LOOK FOR AFIB, Acute ischemic stroke Morbid obesity Hypertension Follow Up Appointment, 09/14/22 11:58:00 EDT, with Dr. Hopkins for stroke follow up, Acute ischemicstroke Morbid obesity Hypertension ?? 2.??Morbid obesity??E66.01 Semaglutide being started for uncontrolled diabetes should help??markedly with his weight?over the next??6 months to a year Ordered: Norvasc, 5 mg = 1 tab, Oral, Tab, Daily, First Dose: 09/14/22 8:44:00 EDT, Physician Stop, NOW Norvasc 5 mg oral tablet, 5 mg = 1 tab, Oral, Daily, 0 Refill(s) aspirin 81 mg oral capsule, 81 mg =, Oral, Daily, 0 Refill(s) Cardiac Monitoring, 09/14/22 11:55:00 EDT, May be off for activity: Yes, LOOK FOR AFIB, Acute ischemic stroke Morbid obesity Hypertension Follow Up Appointment, 09/14/22 11:58:00 EDT, with Dr. Hopkins for stroke follow up, Acute ischemicstroke Morbid obesity Hypertension ?? 3.??Hypertension??I10 Lisinopril 20 mg a day??was his baseline med added Norvasc 5 mg a day??both can be uptitrated in the near term Ordered: Norvasc, 5 mg = 1 tab, Oral, Tab, Daily, First Dose: 09/14/22 8:44:00 EDT, Physician Stop, NOW Norvasc 5 mg oral tablet, 5 mg = 1 tab, Oral, Daily, 0 Refill(s) Cardiac Monitoring, 09/14/22 11:55:00 EDT, May be off for activity: Yes, LOOK FOR AFIB, Acute ischemic stroke Morbid obesity Hypertension Follow Up Appointment, 09/14/22 11:58:00 EDT, with Dr. Hopkins for stroke follow up, Acute ischemicstroke Morbid obesity Hypertension ?? Orders: Plavix 75 mg oral tablet, 75 mg = 1 tab, Oral, Daily, 0 Refill(s) semaglutide 0.25 mg/0.5 mL (0.25 mg dose) subcutaneous solution, 0.25 mg =, Subcutaneous, every week, in the abdomen, thigh, or upper arm, # 2 mL, 0 Refill(s), called to pharmacy (Rx) All Diagnoses This Visit Acute ischemic stroke Morbid obesity Hypertension Patient Education Ischemic Stroke Follow Up With When Contact Information Clarence Hopkins MD Within 2 to 4 weeks [address] [place] [address] [phone] Additional Instructions: stroke follow up Medication Reconciliation New Prescription amLODIPine (Norvasc 5 mg oral tablet)1 tab Oral (given by mouth) every day. ?? aspirin (aspirin 81 mg oral capsule)81 Milligrams Oral (given by mouth) every day. ?? clopidogrel (Plavix 75 mg oral tablet)1 tab Oral (given by mouth) every day. ?? semaglutide (semaglutide 0.25 mg/0.5 mL (0.25 mg dose) subcutaneous solution)0.25 Milligrams Subcutaneous (under the skin) every week for 4 weeks. in the abdomen, thigh, or upper arm. Refills: 0. ?? Changed gabapentin (gabapentin 300 mg oral capsule)1 Capsules Oral (given by mouth) 3 times a day. TAKE 1 CAPSULE BY MOUTH THREE TIMES DAILY. ?? levothyroxine (levothyroxine 100 mcg (0.1 mg) oral tablet)1 tab Oral (given by mouth) every day. TAKE 1 TABLET BY MOUTH ONCE DAILY. ?? lisinopril (lisinopril 20 mg oral tablet)1 tab Oral (given by mouth) every day. TAKE 1 TABLET BY MOUTH ONCE DAILY. ?? Unchanged metFORMIN (metFORMIN 1000 mg oral tablet)1 tab Oral (given by mouth) 2 times a day. TAKE 1 TABLET BY MOUTH TWICE DAILY. [1]??CT Head w/o Contrast; Shira ALVARADO, Duy 09/21/2022 12:45 EDT Electronically Signed on 09/14/22 12:25 PM Nicole ALVARADO, Mehdi Rivera MD, Mehdi Rogers: PERFORM Event Display: Discharge Summary Authored Date: [id number] Neurology??follow-up appointment made??for October 28??at 11 AM here at [place] Electronically Signed on 09/14/22 12:46 PM Nicole ALVARADO, Mehdi Troncoso MD, Asad: PERFORM Event Display: Discharge Summary Authored Date: [id number] Unfortunately, the patient's discharge got delayed for quite a few days. ?? Goal has been to get the patient??into??an acute rehab. ??We are unable to do so [place]. ??We thentried [place]??not had any success yet either??over the last 18 days. ??This patient??greatlybenefit from acute rehab stay. ??He will go to SNF status in our facility today. ?? Of note, there were 2 changes since his discharge summary ?? 1. 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 ? (09/21/2022 12:[address] Head w/o Contrast) Small areas of low attenuation in the posterior limb of the right internal capsule and lateral left thalamus region suspicious for small lacunar infarcts which have become apparent since prior study. ? JOB #: [id number] [1] ?? I had a repeat telemetry neuro consult for this reason. ??Teleneurologist felt??this was small vessel disease,??unlucky but without any specific intervention??with the exception of replacing Plavix with Brilinta something or not Plavix responsive. ??The teleneurologist felt??for some elements of??pe rmissive hypertension. ??There were no further events since. ?? 2 While working with??physical therapy, especially while working physical therapy, the patient develops??what looks like peripheral vertigo.?? NAJMA testing suggests peripheral vertigo. ??CT of the head is negative... ?? (10/01/2022 15:[address] Head w/o Contrast) IMPRESSION:?? 1. ?? Ill-defined areas hypodensity right posterior limb of internal capsule and?? at the left thalamus capsular junction are similar to 09/21/2022, have the?? appearance subacute/chronic ischemic regions.?? 2. ?? No intracranial hemorrhage, mass effect or midline shift.? Semaglutide was stopped, meclizine initiated. ?? Thus, the patient's medication regimen is aspirin, Brilinta, lisinopril 40 mg daily,??being 5 mg. ??Metformin 500 mg p.o. twice daily??with a sliding scale and then as needed medications??for??nausea, vertigo,??constipation. ?? We cannot find an acute rehab bed. ??He will be going to SNF status in our facility. ? Electronically Signed on 10/03/22 09:40 AM Asad Troncoso MD Patient Care team information Care Team Personnel Name: Kiara Ruff MD Position: Physician Member Role: ED Physician Address: Address: [address] [place] [address] Name: Roxanne Parish Position: Nurse Member Role: ED Nurse Care Team Related Persons Name: TABITHA WATTS Name: DONI POP
== END 2023-03-03 15:54 | disposition home or self-care (01) ==
LOC: NCHCN 15:53
PROVIDERS: PCP Physician Assistant Medical; Visit Provider Physician Assistant Medical
DX: C32.1 Malignant neoplasm of supraglottis (principal); I63.89 Other cerebral infarction; R94.6 Abnormal results of thyroid function studies
CPT/HCPCS: 80053; 80061; 84443; 85025

== ENCOUNTER 2023-06-08 15:57 | Outpatient (REF) | payer MEDICAID, SELFPAY ==
[2023-06-08 17:29] LABS: ALT 30 U/L (16-63); AST 22 U/L (15-37); Alkaline Phosphatase 71 U/L (46-116); Anion Gap 11.8 mmol/L (3-11); BUN 17 mg/dL (7-18); Bilirubin, Total 0.4 mg/dL (0.2-1.0); CO2 29.2 mmol/L (21.0-32.0); CREATININE 0.8 mg/dL (0.70-1.30); Calcium 8.7 mg/dL (8.5-10.1); Chloride 96 mmol/L (98-107); Estimated GFR 107.15 (mL/min/1.73m2); Glucose 244 mg/dL (74-106); Potassium 4.5 mmol/L (3.5-5.1); Sodium 137 mmol/L (136-145); TSH (W/Ref FT4) 4.03 uIU/mL (0.36-3.74); Total Protein 7.9 g/dL (6.4-8.2)
[2023-06-08 17:33] LABS: Hemoglobin A1C 9.5 % (<5.7)
[2023-06-08 18:00] LABS: FREE T4 0.87 ng/dL (0.76-1.46)
[2023-06-10 13:14] LABS: Calculated LDL 68 mg/dL (<160); Cholesterol 137 mg/dL (<200); HDL Cholesterol 42 mg/dL (>or=40); Triglyceride 136 mg/dL (<or=150)
== END 2023-06-08 15:58 | disposition home or self-care (01) ==
LOC: NCHCN 15:57
PROVIDERS: PCP Physician Assistant Medical; Visit Provider Physician Assistant Medical
DX: E11.9 Type 2 diabetes mellitus without complications (principal); E03.9 Hypothyroidism, unspecified; R79.89 Other specified abnormal findings of blood chemistry; I63.89 Other cerebral infarction
CPT/HCPCS: 80053; 80061; 83036; 84439; 84443

== ENCOUNTER 2023-08-16 16:27 | Outpatient (REF) | payer MEDICAID, SELFPAY ==
--- OUTSIDE RECORDS SUMMARY | 2023-08-16 16:40 | XMS_ITS | Continuity of Care Document ---
Author Name Unknown Organization [facility] Address [address] [place] [id number] Care Team Providers Care Manager Nuclear Name Role Phone STACEY GREEN PA-C Primary Care Elisabet parra Encounter LTTL_GA FIN NBR [id number] Date(s): 01/12/23 - 08/03/[address] [address] Encounter Diagnosis Cerebral infarction, unspecified(Discharge Diagnosis) - 01/13/23 Cerebral infarction, unspecified(Final) - Discharge Disposition: Home-No Follow Up Attending Physician: Dwight Garcia, PT, DPT Admitting Physician: STACEY GREEN PA-C Referring Physician: STACEY GREEN PA-C Allergies, Adverse Reactions, Alerts No Known Medication Allergies Functional Status 01/13/23 Prior ADL Status Independent Prior Mobility Status Independent Prior Instrumental ADL Level Independent Prior Cognitive-Communication Skills Ind ependent 01/12/23 Lives In Single level home Lives With Alone Patient's Responsibilities Rehab Communi ty mobility, 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, Personal ADL, Social participation Number of Stairs Outside 4 Medications aspirin 81 mg oral capsule 81 mg =, Oral, Daily, # 30 cap, 0 Refill(s), Pharmacy: [id number], 183, cm, 10/03/22 12:35:00 EDT, Height/Length Dosing, 165.4, kg, 11/15/22 4:24:00 EDT, Weight Dosing Start Date: 11/28/22 Stop Date: 12/28/22 Status: Ordered atorvastatin 20 mg oral tablet 80 mg = 4 tab, Oral, every evening, # 120 tab, 0 Refill(s), Pharmacy: [id number], 183, cm, 10/03/22 12:35:00 EDT, Height/Length Dosing, 165.4, kg, 11/15/22 4:24:00 EDT, Weight Dosing Start Date: 11/28/22 Status: Ordered Brilinta (ticagrelor) 90 mg oral tablet 90 mg = 1 tab, Oral, BID, # 60 tab, 0 Refill(s), Pharmacy: [facility], 183, cm, 10/04/2311:35:00 EDT, Height/Length Dosing, 165.4, kg, 11/15/22 4:24:00 EDT, Weight Dosing Start Date: 11/28/22 Status: Ordered Glucometer Glucometer, Please provide glucometer that is covered by insurance Test blood glucose twice daily, Supply, See instructions, # 1 EA, 0 Refill(s), Pharmacy: [facility] Start Date: 11/28/22 Status: Ordered hydroCHLOROthiazide 25 mg oral tablet 25 mg = 1 tab, Oral, Daily, # 30 tab, 0 Refill(s), Pharmacy: [facility], 183, cm, 10/03/22 12:35:00 EDT, Height/Length Dosing, 165.4, kg, 11/15/22 4:24:00 EDT, Weight Dosing Start Date: 11/28/22 Status: Ordered levothyroxine 100 mcg (0.1 mg) oral tablet 100 mcg = 1 tab, Oral, Daily, TAKE 1 TABLET BY MOUTH ONCE DAILY, # 30 tab, 0 Refill(s), Pharmacy: [facility], 183, cm, 10/03/22 12:35:00 EDT, Height/Length Dosing, 165.4, kg, 11/15/22 4:24:00 EDT, Weight Dosing Start Date: 11/28/22 Status: Ordered metFORMIN 1000 mg oral tablet 1,000 mg = 1 tab, Oral, BID, TAKE 1 TABLET BY MOUTH TWICE DAILY, # 60 tab, 0 Refill(s), Pharmacy: [facility] [id number], 183, cm, 10/03/22 12:35:00 EDT, Height/Length Dosing, 165.4, kg, 11/15/22 4:24:00 EDT, Weight Dosing Start Date: 11/28/22 Status: Ordered NIFEdipine 30 mg oral tablet, extended release 60 mg = 2 cap, Oral, Daily, # 60 cap, 0 Refill(s), Pharmacy: [id number], 183, cm, 10/03/22 12:35:00 EDT, Height/Length Dosing, 165.4, kg, 11/15/22 4:24:00 EDT, Weight Dosing Start Date: 11/28/22 Status: Ordered Problem List Condition Confirmation Course Effective Dates Status Health St atus Informant Diabetes Confirmed Active Hypertension Confirmed Active Morbid obesity Confirmed Active Social History Social History Type Response Tobacco Never tobacco user T obacco Use:. Sex Patient Care team information Care Team Personnel Name: STACEY GREEN PA-C Position: No Access Member Role: Primary Care Physician Address: Address: [facility] [address] [place] [address]- Care Team Related Persons Name: TABITHA WATTS Name: DONI POP
[2023-08-16 18:59] LABS: Hemoglobin A1C 7.7 % (<5.7)
[2023-08-16 19:05] LABS: TSH (W/Ref FT4) 2.87 uIU/mL (0.36-3.74)
== END 2023-08-16 16:28 | disposition home or self-care (01) ==
LOC: NCHCN 16:27
PROVIDERS: PCP Physician Assistant Medical; Visit Provider Physician Assistant Medical
DX: E11.9 Type 2 diabetes mellitus without complications (principal); E03.9 Hypothyroidism, unspecified
CPT/HCPCS: 83036; 84443

== ENCOUNTER 2023-12-01 15:56 | Outpatient (REF) | payer BC, MEDICAID, SELFPAY ==
--- OUTSIDE RECORDS SUMMARY | 2023-12-01 15:58 | XMS_ITS | Encounter Summary ---
Author Organization [facility] Address [address] [place] [address] Care Team Providers Care Drawing Operator Name Role Phone Unavailable Primary Care Provider Unavailabl e Encounter Details Date Type Department Care Team (Late st Contact Info) Description 06/09/2023 Lab Requisition [facility] Pathology & Laboratory Medicine - [facility] [address] [place] [address] Outr Resulting Lab, Provider Social History Tobacco Use Types Packs/Day Years Used Date Smoking Tobacco: Never Assessed Sex and Gender Information Value Date Recorded Sex Assigned at Not on file Gender Identity Not on file Sexual Orientation Not on file documented as of this encounter Plan of Treatment Not on file documented as of this encounter Procedures Procedure Name Priority Date/Time Associated Diagnosis Comments LIPID PROFILE (INCLUDES CHOLESTEROL, TRIGLYCERIDES, HDL, LDL) Routine 06/08/2023 11:00 EDT documented in this encounter Results * LIPID PROFILE (INCLUDES CHOLESTEROL, TRIGLYCERIDES, HDL, LDL) (06/08/2023 11:00 EDT) Cholesterol 137 <200 mg/dL 06/09/2023 21:[address] [facility] Comment:Note that therapeuti c goals will differ between patients based on cardiac risk factors and current medical therapy. HDL 42 >=40 mg/dl 06/09/2023 21:[address] [facility] Comment:Note that therapeuti c goals will differ between patients based on cardiac risk factors and current medical therapy. LDL, Calculated 68 <160 mg/dL 21:[address] [facility] Comment:Note that therapeuti c goals will differ between patients based on cardiac risk factors and current medical therapy. Triglyceride 136 <=150 mg/dL 06/09/2023 21:[address] [facility] Comment:Note that therapeuti c goals will differ between patients based on cardiac risk factors and current medical therapy. Chol/HDL Ratio 3.3 See Note 06/09/2023 21:[address] [facility] Comment:No reference range h as been established for CHOL/HDL ratio. Non HDL Cholesterol 95 <160 mg/dL 06/09/2023 21:[address] [facility] Comment:Note that therapeuti c goals will differ between patients based on cardiac risk factors and current medical therapy. Blood VENOUS BLOOD / Unknown 06/08/2023 11:00 EDT 06/09/2023 21:32 EDT Provider Outr Resulting Lab CHEMISTRY & BLOOD GAS ORDERABLES [facility] [address] [place], [place] [id number] documented in this encounter Visit Diagnoses Not on filedocumented in this encounter
--- OUTSIDE RECORDS SUMMARY | 2023-12-01 15:58 | XMS_ITS | Encounter Summary ---
[place] [address] Care Team Providers Care Assistant Tennis Professional Name Role Phone Weston Tobias Primary Care Provider +1- [phone] Encounter Details Date Type Department Care Team (Latest Contact Info) Description 08/24/2023 11:00 AM EDT Laboratory Appointment Lab [address] [place] [address] Squamous cell carcinoma of supraglottis Social History Tobacco Use Types Packs/Day Years Used Date Smoking Tobacco: Former Cigarettes 1.5 24 0 04/1997 - 04/2021 Smokeless Tobacco: Never Comments:Declines Tobacco ce ssasion referral at this time. Alcohol Use Standard Drinks/Week Comments No 0 (1 standard drink = 0.6 oz pur e alcohol) rare alcohol Overall Financial Resource Strain (CARDIA) Answe r Date Recorded How hard is it for you to pa y for the very basics like food, housing, medical care, and heating? Not hard at all 04/07/2021 Hunger Vital Sign Answer Date Recorded Within the past 12 months, y ou worried that your food would run out before you got the money to buy more. Never true 04/07/19 22 Within the past 12 months, t he food you bought just didn't last and you didn't have money to get more. Never true 04/07/2021 PRAPARE - Transportation Answer Date Re corded In the past 12 months, has l ack of transportation kept you from medical appointments or from getting medications? No 03/19 In the past 12 months, has l ack of transportation kept you from meetings, work, or from getting things needed for daily living? No 04/07/2021 Housing Stability Vital Sign Answer Pino e Recorded In the last 12 months, was t here a time when you were not able to pay the mortgage or rent on time? No 04/07/2021 In the last 12 months, how many places have you lived? 1 04/07/2021 In the last 12 months, was t here a time when you did not have a steady place to sleep or slept in a [facility] (including now)? Yes 04/07/2021 Sex and Gender Information Value Date Recorded Sex Assigned at Not on file Gender Identity Not on file Sexual Orientation Not on file documented as of this encounter Plan of Treatment Upcoming Encounters Date Type Department Care Team (Late st Contact Info) Description 02/02/2024 3:00 PM EST Office Visit Radiation Oncology at [address] [address] Ag Cruz MD [facility] [place] [address] documented as of this encounter Procedures Procedure Name Priority Date/Time Associated Diagnosis Comments CREATININE Routine 08/24/2023 11:06 AM EDT Squamous cell carcinoma of supraglottis documented in this encounter Results * (ABNORMAL) Creatinine (08/24/2023 11:06 AM EDT) Creatinine 0.76(L) 0.80 - 1.50 mg/dL [facility] Est Glomerular Filtration Rate 109 >=60 mL/min/1. 73 m?? [facility] Comment: This patient's estimated GFR was calculated using the 2020 CKD-EPI equation. The estimated GFR can vary from the measured GFR by up to 30% in the absence of rapidly changing kidney function. Assessment of the estimated GFR is not appropriate when creatinine concentrations are rapidly changing. For clinical situations in which a more precise estimate of GFR is necessary, consider alternative methods of GFR estimation such as a 24-hour urine creatinine clearance. Assignment of CKD stage 1-5 for patients with an eGFR near the transition point between stages may be based on clinical assessment of muscle mass and symptoms in addition to eGFR. Blood 08/24/2023 11:0 6 AM EDT 08/24/2023 11:26 AM EDT Narrative Resulting Agency Comment Spec In Lab Ag Cruz MD CHEMISTRY ORDERABLES [facility] [place] [id number] documented in this encounter Visit Diagnoses Diagnosis Squamous cell carcinoma of supraglottis Malignant neoplasm of supraglottis documented in this encounter Care Teams Assistant Tennis Professional Relationship Specialty Start Date End Date Weston Tobias PA [address] [place] [address] PCP - General Family Medicine 02/25/21 documented as of this encounter
--- OUTSIDE RECORDS SUMMARY | 2023-12-01 15:58 | XMS_ITS | Encounter Summary ---
Author Organization [facility] [place] [address] Care Team Providers Care Deployment Technician Name Role Phone Weston oTbias Primary Care Provider +1- [phone] Reason for Visit * Speech Therapy (Routine) - Authorized Specialty Diagnoses / Procedures Referred By Jose A paz Referred To Contact Speech Therapy Diagnoses Larynx cancer Mat Casper MD [facility] [address] Mat Ball, COOK APPRENTICE PASTRY Referral ID Status Reason Start Date Expiration Date Visits Requested Visits Authorized [id number] Authorized Evaluate and Treat 10/06/2023 10/05/2024 30 30 Encounter Details Date Type Department Care Team (Late st Contact Info) Description 11/11/2023 8:00 AM EDT Office [place] [address] Mat Ball, COOK APPRENTICE PASTRY Dysphonia Social History Tobacco Use Types Packs/Day Years [...] place to sleep or slept in a senior care (including now)? Yes 04/07/2021 Sex and Gender Information Value Date Recorded Sex Assigned at Not on file Gender Identity Not on file Sexual Orientation Not on file documented as of this encounter Miscellaneous Notes * Initial Evaluation - Mat Ball, COOK APPRENTICE PASTRY - 11/11/2023 8:00 AM EDT Department of Rehabilitation Medicine Speech Pathology Plan Of Care TEP Re-Evaluation/Placement Reggie Pena Sr. : 1970 11/11/2023 8:18 AM Total Evaluation Time: 30 min. Eval. Time Codes: 0 min. Evaluation Type: TEP Diagnosis/Diagnosis Code(s): R49.1 (Aphonia), R13.10 (Dysphagia Unspecified), Z98.89 (History of Laryngectomy) Referring Physician: Mat Casper MD Evaluation Procedures: Direct assessment/re-placement of TEP/stoma and Pt/Caregiver education and training Functional Limitations: Aphonia and dysphagia s/p total laryngectomy with need for alaryngeal communication. Medicare Certification Period: N/A KX Modifier used beginning date: N/A History: Pt. Is a 53 y.o. male with history of obesity, T2DM, HTN, Tobacco use, [id number] SCCa of the supraglottic larynx, recent CVA's ( no residual effects on language or cognition). S/P total laryngectomy and primary creations of TEP on 04/29/21. Initial TEP sizing and placement on 05/07/21. Pt now returns for reassessment of TEP. Last TEP change was on 10/07/2023 [facility] Past Medical History: Diagnosis Date Diabetes mellitus Obesity Panniculitis Throat cancer S: Pt. denies significant pain or distress at this time Pt reports leaking through TEP at this time. Pt reports no medication or lifestyle changes that could result in shorter prosthesis lifespan. Pt's daughter present. O: Reviewed record Pt was referred by Mat Casper MD (ENT) for assessment and re-placement of TEP Oral-Peripheral/Neck Examination 6mm 20Fr Ryan Garcia Classic TEP with large tracheal and esophageal flange in place with good fit. Phonation is excellent. Leaking is noted through TEP when drinking water. No leakage around. Patent stoma. Oral structures and functions appear WNL/WFL Minimal tracheal secretions No palpable adenopathy TEP Placement Removed 6mm 20Fr Ryan Garcia Classic TEP with large tracheal and esophageal flange without difficulty. No fungal colonization 6mm 20Fr Ryan garcia Classic TEP placed on first attempt. Utilized a 20Fr. Capsule and had patient extend head and turn head slightly to left to straighten out tract. Good phonation with finger occlusion No leakage noted through or around TEP at this time HME Pt not interested at this time Pt/Caregiver Education & Training Reviewed that there is not a clear answer as to why short life span of prosthesis. Supplies Provided to Pt/Caregiver 6mm 20fr Ryan Garcia Classic TEP with large tracheal and esophageal flange. A: Pt tolerated TEP change well with good phonation and without leakage through or around at this time. See postural changes above to facilitate TEP placement. Recommendations Flush TEP with saline at least 3x/day [place] TEP PRN Contact ENT/COOK APPRENTICE PASTRY with any ?'s or concerns re: TEP. Current Goals None. P: D/C from Speech Pathology service for now. Patient to f/u PRN in ENT Clinic Pt. is in agreement with plan of treatment Mat Ball MS, CCC-COOK APPRENTICE PASTRY Speech-Language Pathologist Rehabilitation Medicine Pager # [phone] documented in this encounter Plan of Treatment Upcoming Encounters Date Type Department Care Team (Late st Contact Info) Description 02/02/2024 3:00 PM EST Office Visit Radiation Oncology at [address] [address] Ag Cruz MD [facility] DR [place] [address] documented as of this encounter Visit Diagnoses Diagnosis Dysphonia documented in this encounter Care Teams Deployment Technician Relationship Specialty Start Date End Date Weston Tobias PA [address] [place] [address] PCP - General Family Medicine 02/25/21 documented as of this encounter
--- OUTSIDE RECORDS SUMMARY | 2023-12-01 15:58 | XMS_ITS | Clinical Summary ---
Author Organization [facility] Address [address] [place] [id number] Care Team Providers Care Facility Supervisor Name Role Phone Unavailable Primary Care Provider Unavailabl e Social History Tobacco Use Types Packs/Day Years Used Date Smoking Tobacco: Never Assessed Sex and Gender Information Value Date Recorded Sex Assigned at Not on file Gender Identity Not on file Sexual Orientation Not on file Plan of Treatment Health Maintenance Due Date Last Done Comments Hepatitis C Screen 1970 Hepatitis B Vaccine (1 of 3 - 19+ 3-dose series) 05/12 COVID-19 Vaccine (2022-24 season) 2022
--- OUTSIDE RECORDS SUMMARY | 2023-12-01 15:58 | XMS_ITS | Referral Summary ---
Author Organization [facility] Address [address] [place] [address] Care Team Providers Care Quality Assurance Group Leader Name Role Phone Unavailable Primary Care Provider Unavailabl e Social History Tobacco Use Types Packs/Day Years Used Date Smoking Tobacco: Never Assessed Sex and Gender Information Value Date Recorded Sex Assigned at Not on file Gender Identity Not on file Sexual Orientation Not on file Plan of Treatment Not on file
--- OUTSIDE RECORDS SUMMARY | 2023-12-01 15:58 | XMS_ITS | Encounter Summary ---
Author Organization [facility] Address [address] [facility] [place] [address] Care Team Providers Care Aviation Operations Specialist Name Role Phone Weston Tobias Primary Care Provider +1- [phone] Encounter Details Date Type Department Care Team (Latest Contact Info) Description 09/15/2023 Travel Social History Tobacco Use Types Packs/Day Years [...] place to sleep or slept in a [facility] (including now)? Yes 04/07/2021 Sex and Gender Information Value Date Recorded Sex Assigned at Not on file Gender Identity Not on file Sexual Orientation Not on file documented as of this encounter Plan of Treatment Upcoming Encounters Date Type Department Care Team (Late st Contact Info) Description 02/02/2024 3:00 PM EST Office Visit Radiation Oncology at [address] [address] Ag Cruz MD [facility] [place] [address] documented as of this encounter Visit Diagnoses Not on filedocumented in this encounter Care Teams Aviation Operations Specialist Relationship Specialty Start Date End Date Weston Tobias PA [address] [place] [address] PCP - General Family Medicine 02/25/21 documented as of this encounter
--- OUTSIDE RECORDS SUMMARY | 2023-12-01 15:58 | XMS_ITS | Encounter Summary ---
Author Organization [facility] Address [facility] [address] Care Team Providers Care Weather Clerk Name Role Phone Weston Tobias Primary Care Provider +1- [phone] Encounter Details Date Type Department Care Team (Latest Contact Info) Description 10/07/2023 Travel Social History Tobacco Use Types Packs/Day [...] place to sleep or slept in a [facility] (including now)? Yes 04/07/2021 Sex and Gender Information Value Date Recorded Sex Assigned at Not on file Gender Identity Not on file Sexual Orientation Not on file documented as of this encounter Plan of Treatment Upcoming Encounters Date Type Department Care Team (Late st Contact Info) Description 02/02/2024 3:00 PM EST Office Visit Radiation Oncology at [address] [phone] Ag Cruz MD [facility] [place] [address] documented as of this encounter Visit Diagnoses Not on filedocumented in this encounter Care Teams Weather Clerk Relationship Specialty Start Date End Date Weston Tobias PA [address] [place] [address] PCP - General Family Medicine 02/25/21 documented as of this encounter
--- OUTSIDE RECORDS SUMMARY | 2023-12-01 15:58 | XMS_ITS | Encounter Summary ---
Author Organization [facility] [place] [address] Care Team Providers Care Metal Finisher Name Role Phone Weston Tobias Primary Care Provider +1- [phone] Encounter Details Date Type Department Care Team (Latest Contact Info) Description 09/02/2023 Multidisciplinary Ca re [place] [address] Ag Cruz MD [facility] [place] [address] Social History Tobacco Use Types Packs/Day Years [...] to sleep or slept in a senior living (including now)? Yes 04/07/2021 Sex and Gender Information Value Date Recorded Sex Assigned at Not on file Gender Identity Not on file Sexual Orientation Not on file documented as of this encounter Progress Notes * Ag Cruz MD - 09/02/2023 11:59 PM EDT Head & Neck - Tumor Board Note Date Presented: Presenting Physician: Dr. Cruz Diagnosis/Tumor Site: Reggie Pena Sr. is a 51 y.o. 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 Adjuvant radiotherapy 60 Gy, 07/30/21. Is this Metastatic Disease: No Synopsis of History/HPI:as above Imaging: No evidence of recurrent enhancing mass or adenopathy. Mild nodular soft tissue thickeningnoted at the level of hypopharynx Pathology/Histology: Stage: as above Clinical Data (Exams, Labs, etc.): Molecular Pathology Results: Clinical Trial Availability: NA Options Discussed: imaging findings of uncertain significance. NPL with otolaryngology recommended. Recommendations: NPL DISCLAIMER: The patient was discussed and the tumor board made recommendations but it is ultimatelyup to the treatment provider(s) and the patient to determine the patient???s care. I spoke with Mr. Pena about the plan and he was in agreement. documented in this encounter Plan of Treatment Upcoming Encounters Date Type Department Care Team (Late st Contact Info) Description 02/02/2024 3:00 PM EST Office Visit Radiation Oncology at [address] [address] Ag Cruz MD [facility] DR [place] [address] documented as of this encounter Visit Diagnoses Not on filedocumented in this encounter Care Teams Metal Finisher Relationship Specialty Start Date End Date Weston Tobias PA [address] [place] [address] PCP - General Family Medicine 02/25/21 documented as of this encounter
--- OUTSIDE RECORDS SUMMARY | 2023-12-01 15:58 | XMS_ITS | Encounter Summary ---
Author Organization [facility] [place] [address] Care Team Providers Care Gas Substation Operator Name Role Phone Weston Tobias Primary Care Provider +1- [phone] Reason for Referral * Speech Therapy (Routine) - Authorized Specialty Diagnoses / Procedures Referred By Contdavid t Referred To Contact Speech Therapy Diagnoses Larynx cancer Mat Casper MD [facility] [place] [address] Mat Ball, CHERISE Referral ID Status Reason Start Date Expiration Date Visits Requested Visits Authorized [id number] Authorized Evaluate and Treat 10/06/2023 10/05/2024 30 30 Encounter Details Date Type Department Care Team (Late st Contact Info) Description 10/06/2023 Orders [place] [address] Gladys Granados RN Larynx cancer (Primary Dx) Social History Tobacco Use Types Packs/Day Years [...] place to sleep or slept in a correction (including now)? Yes 04/07/2021 Sex and Gender Information Value Date Recorded Sex Assigned at Not on file Gender Identity Not on file Sexual Orientation Not on file documented as of this encounter Plan of Treatment Upcoming Encounters Date Type Department Care Team (Late st Contact Info) Description 02/02/2024 3:00 PM EST Office Visit Radiation Oncology at [address] [phone] Ag Cruz MD [facility] [place] [address] Scheduled Referrals Name Type Priority Associated Diagnoses Orde r Schedule Referral to Speech Therapy Outpatient Referral Routine Larynx cancer Ordered: 10/06/2023 documented as of this encounter Visit Diagnoses Diagnosis Larynx cancer- Primary Malignant neoplasm of larynx, unspecified site documented in this encounter Care Teams Gas Substation Operator Relationship Specialty Start Date End Date Weston Tobias PA [address] [place] [address] PCP - General Family Medicine 02/25/21 documented as of this encounter
--- OUTSIDE RECORDS SUMMARY | 2023-12-01 15:58 | XMS_ITS | Encounter Summary ---
Author Organization [facility] Address [facility] [address] Care Team Providers Care Gravel Machine Operator Name Role Phone Weston Tobias Primary Care Provider +1- [phone] Encounter Details Date Type Department Care Team (Latest Contact Info) Description 08/24/2023 Travel Social History Tobacco Use Types Packs/Day [...] place to sleep or slept in a prison (including now)? Yes 04/07/2021 Sex and Gender Information Value Date Recorded Sex Assigned at Not on file Gender Identity Not on file Sexual Orientation Not on file documented as of this encounter Plan of Treatment Upcoming Encounters Date Type Department Care Team (Late st Contact Info) Description 02/02/2024 3:00 PM EST Office Visit Radiation Oncology at [address] [address] Ag Cruz MD [facility] [place] [address] documented as of this encounter Visit Diagnoses Not on filedocumented in this encounter Care Teams Gravel Machine Operator Relationship Specialty Start Date End Date Weston Tobias PA [address] [place] [address] PCP - General Family Medicine 02/25/21 documented as of this encounter
--- OUTSIDE RECORDS SUMMARY | 2023-12-01 15:58 | XMS_ITS | Encounter Summary ---
Author Organization [facility] Address [facility] [address] Care Team Providers Care Subsystems Engineer Name Role Phone Weston Tobias Primary Care Provider +1- [phone] Encounter Details Date Type Department Care Team (Late st Contact Info) Description 06/16/2023 Telephone Radiation Oncology at [address] [address] Yarely Casiano Social History Tobacco Use Types Packs/Day Years [...] place to sleep or slept in a long-term (including now)? Yes 04/07/2021 Sex and Gender Information Value Date Recorded Sex Assigned at Not on file Gender Identity Not on file Sexual Orientation Not on file documented as of this encounter Miscellaneous Notes * Telephone Encounter - Yarely Casiano - 06/16/2023 2:30 PM EDT Refaxed to [facility] physical therapy. They do treat his diagnosis and take his insurance They will reach out to the patient and schedule him documented in this encounter Plan of Treatment Upcoming Encounters Date Type Department Care Team (Late st Contact Info) Description 02/02/2024 3:00 PM EST Office Visit Radiation Oncology at [address] [phone] Ag Cruz MD [facility] [place] [address] documented as of this encounter Visit Diagnoses Not on filedocumented in this encounter Care Teams Subsystems Engineer Relationship Specialty Start Date End Date Weston Tobias PA [address] [place] [address] PCP - General Family Medicine 02/25/21 documented as of this encounter
--- OUTSIDE RECORDS SUMMARY | 2023-12-01 15:58 | XMS_ITS | Encounter Summary ---
Author Organization [facility] [place] [address] Care Team Providers Care Clinical Biostatistics Director Name Role Phone Weston Tobias Primary Care Provider +1- [phone] Reason for Referral * Diagnostic Test (Routine) - Closed Specialty Diagnoses / Procedures Referred By Contdavid t Referred To Contact Radiology Diagnoses Squamous cell carcinoma of supraglottis Procedures CT Neck Soft Tissue w Contrast (Generic) Ag Cruz MD [facility] [place] [address] [facility] [place] [address] Referral ID Status Reason Start Date Expiration Date V isits Requested Visits Authorized [id number] Closed Specialty Service Requested 06/09/2023 12/08/2024 1 1 * Diagnostic Test (Routine) - Closed Specialty Diagnoses / Procedures Referred By Jose A paz Referred To Contact Radiology Diagnoses Squamous cell carcinoma of supraglottis Procedures CT Chest w Contrast Ag Cruz MD [facility] [place] [address] [facility] [place] [address] Referral ID Status Reason Start Date Expiration Date V isits Requested Visits Authorized [id number] Closed Specialty Service Requested 06/09/2023 12/08/2024 1 1 Reason for Visit * Diagnostic Test (Routine) - Closed Specialty Diagnoses / Procedures Referred By Contac t Referred To Contact Radiology Diagnoses Squamous cell carcinoma of supraglottis Procedures CT Chest w Contrast Ag Cruz MD [facility] [place] [address] [facility] [place] [address] Referral ID Status Reason Start Date Expiration Date V isits Requested Visits Authorized [id number] Closed Specialty Service Requested 06/09/2023 12/08/2024 1 1 Encounter Details Date Type Department Care Team (Latest Contact Info) Description 08/24/2023 11:57 AM EDT - 08/24/2023 11:59 PM EDT Hospital [place] [address] Ag Cruz MD [facility] [place] [address] Squamous cell carcinoma of supraglottis Discharge Disposition: Home Social History Tobacco Use Types Packs/Day Years [...] on file documented as of this encounter Medications at Time of Discharge Medication Sig Dispensed Refills Start Date End Date atorvastatin (Lipitor) 20 mg tablet TAKE 4 TABLETS BY MOUTH IN THE EVENING Dexcom G7 Sensor Device USE DIRECTED CHANGING SENSOR EVERY 10 DAYS 03/31/2023 FLUoxetine (PROzac) 10 mg capsule Take 1 capsule by mouth Daily at Noon. 05/10/2023 hydroCHLOROthiazide (HydroDiuril) 25 mg tablet Take 25 mg by mouth daily. NIFEdipine CC (Adalat CC) 30 mg ER tablet Take 2 tablets by mouth Daily at Noon. 03/30/2023 levothyroxine (Synthroid) 112 mcg tablet Take 1 tablet by mouth Daily at Noon. 03/04/2023 Insulin Tresiba FlexTouch U-100 100 unit/mL (3 mL) Insulin Pen INJECT 5 UNITS SUBCUTANEOUSLY ONCE DAILY. INCREASE BY 2 UNITS EVERY 3 DAYS UNTIL FASTING BLOOD SUGAR IS UNDER 150. MAXIMUM OF 40 UNITS PER DAY. 03/08/2023 sulfamethoxazole-trim ethoprim DS (Bactrim DS) 800-160 mg Tablet Take 1 tablet by mouth 2 times daily. 42 tablet 02/05/2022 gabapentin (Neurontin) 300 mg Capsule Take 1 capsule by mouth 3 times daily. 90 capsule 12 12/11/2021 lisinopriL (Zestril) 20 mg Tablet Take 20 mg by mouth daily. 11/16/2021 silver sulfADIAZINE (Silvadene) 1 % Cream Apply topically 2 times daily. Apply to open areas of skin. 50 g 07/16/2021 pantothenic Ac-Min Oil-Pet,Hyd (Aquaphor) 41 % Ointment Apply topically. docusate sodium (Colace) 100 mg Capsule Take 100 mg by mouth as needed for Constipation. insulin glargine (Lantus;Semglee) Solution Inject 28 Units subcutaneously nightly. 10 mL 12 05/07/2021 insulin aspart U-100 (NovoLOG) Solution Inject 5 Units subcutaneously 3 times daily (before meals). 10 mL 12 05/07/2021 acetaminophen (Tylenol) 325 mg Tablet Take 2 tablets by mouth every 6 hours as needed for Pain or Fever. 30 tablet 1 05/07/2021 glipiZIDE (GLUCOTROL) 10 mg Tablet Take 10 mg by mouth 2 times daily (before meals). documented as of this encounter Plan of Treatment Upcoming Encounters Date Type Department Care Team (Late st Contact Info) Description 02/02/2024 3:00 PM EST Office Visit Radiation Oncology at [address] [phone] Ag Cruz MD [facility] [place] [address] documented as of this encounter Procedures Procedure Name Priority Date/Time Associated Diagnosis Comments CT CHEST W CONTRAST Routine 08/24/2023 1:39 PM EDT Squamous cell carcinoma of supraglottis CT NECK SOFT TISSUE W CONTRAST Routine 08/24/2023 1:39 PM EDT Squamous cell carcinoma of supraglottis documented in this encounter Results * CT Neck Soft Tissue w Contrast (Generic) (08/24/2023 1:39 PM EDT) WORKSTATION ID [id number] DH RAD Anatomical Region Laterality Modality Neck, Head Computed Tomogra phy Impressions 08/24/2023 4:57 PM EDT No evidence of recurrent enhancing mass or adenopathy. Mild nodular soft tissue thickening noted at the level of hypopharynx, right of midline as above, of uncertain significance. Partially imaged, but more conspicuous foci of brain hypoattenuation ( thalamocapsular region) may reflect interval small infarcts, or prominent perivascular spaces as compared with prior neck CT and brain MRI of 04/02/2022. Consider follow-up brain MRI imaging as warranted. Thank you for letting us participate in the care of this patient. ??If you are a health care provider and have any questions regarding this report, please contact the number below. ??For patients who have questions please contact the health personal caregiver that requested your imaging first. ? Narrative 08/24/2023 4:57 PM EDT EXAMINATION: CT NECK SOFT TISSUE W CONTRAST (GENERIC) CLINICAL HISTORY: Head/neck cancer, assess treatment response s/p surgery and radiohterapy for HN cancer, assess for recurrence. C32.1, Malignant neoplasm of supraglottis TECHNIQUE: CT neck performed after the intravenous administration of contrast. . COMPARISON: Concurrent chest CT, Neck CT 10/30/2021, 01/22/2022. Brain MRI 01/30/2023 FINDINGS: Stable postoperative laryngectomy changes and neck dissection noted without interval development of focal enhancing mass or cervical adenopathy. Compared to the previous study there is significant interval improvement in the soft tissue edema in the anterior neck and submandibular tissues near midline. There is mild nodular soft tissue thickening noted at the level of the hypopharynx, right of midline (image 58 through 60, series 304). TEP tube noted at the level of thoracic inlet. There is no fluid collection or subcutaneous emphysema noted. No interval laurita enlargement. No submandibular or parotid gland mass identified. There is no mass of the oral cavity, tongue base or floor mouth seen. There are no osseous lesions. Similar appearance of partially imaged lipoma within the deep posterior subcutaneous tissues of the lower neck, left of midline Procedure Note Torrey Gould DO - 08/24/2023 EXAMINATION: CT NECK SOFT TISSUE W CONTRAST (GENERIC) CLINICAL HISTORY: Head/neck cancer, assess treatment response s/p surgery and radiohterapy for HN cancer, assess for recurrence. C32.1, Malignant neoplasm of supraglottis TECHNIQUE: CT neck performed after the intravenous administration of contrast. . COMPARISON: Concurrent chest CT, Neck CT 10/30/2021, 01/22/2022. Brain MRI 01/30/2023 FINDINGS: Stable postoperative laryngectomy changes and neck dissection notedwithout interval development of focal enhancing mass or cervical adenopathy.Compared to the previous study there is significant interval improvement in the softtissue edema in the anterior neck and submandibular tissues near midline. Thereis mild nodular soft tissue thickening noted at the level of the hypopharynx,right of midline (image 58 through 60, series 304). TEP tube noted at the levelof thoracic inlet. There is no fluid collection or subcutaneous emphysema noted. No interval laurita enlargement. No submandibular or parotid gland mass identified. There is no mass of the oral cavity, tongue base or floor mouth seen. There are no osseous lesions. Similar appearance of partially imaged lipoma within the deep posterior subcutaneous tissues of the lower neck, left of midline IMPRESSION No evidence of recurrent enhancing mass or adenopathy. Mild nodular softtissue thickening noted at the level of hypopharynx, right of midline as above,of uncertain significance. Partially imaged, but more conspicuous foci of brain hypoattenuation ( thalamocapsular region) may reflect interval small infarcts, orprominent perivascular spaces as compared with prior neck CT and brain MRI of04/02/2022. Consider follow-up brain MRI imaging as warranted. Thank you for letting us participate in the care of this patient. If youare a health care provider and have any questions regarding this report,please contact the number below. For patients who have questions please contactthe health personal caregiver that requested your imaging first. Ag Cruz MD IMG CT ORDERABLES * CT Chest w Contrast (08/24/2023 1:39 PM EDT) [employer] Signature WORKSTATION ID [id number] RAD Anatomical Region Laterality Modality Chest Computed Tomogra phy Impressions 08/25/2023 9:36 AM EDT No metastatic disease in the chest. I have personally reviewed the image(s) and the resident's interpretation and agree with the findings, Fredo Ayala MD at 08/25/2023 9:36 AM Thank you for letting us participate in the care of this patient. ??If you are a health care provider and have any questions regarding this report, please contact the number below. ??For patients who have questions please contact the health personal caregiver that requested your imaging first. ? Narrative 08/25/2023 9:36 AM EDT EXAMINATION: CT CHEST W CONTRAST CLINICAL HISTORY: Head/neck cancer, assess treatment response s/p surgery and radiotherapy for HN cancer, assess for recurrence. C32.1, Malignant neoplasm of supraglottis TECHNIQUE: Helical CT of the chest after the intravenous administration of contrast, Administered 110.0 ml of OMNIPAQUE 350.00 mg/ml. Thin-section reconstructions as well as coronal and sagittal reformatted images were generated. COMPARISON: CT chest 10/30/2021. FINDINGS: Pulmonary parenchyma: No pulmonary nodule. No focal airspace opacity. Airways: No central endobronchial abnormality. Pleura: No effusion. Lymph nodes: No lymphadenopathy. Heart and vasculature: Normal size of the heart. No significant pericardial effusion. Normal caliber of the thoracic aorta. Mild coronary artery calcification. Other mediastinal structures: No significant findings. Upper abdomen: No acute finding. Skeletal structures: No acute osseous abnormality. No suspicious osseous lesion. Degenerative changes of the thoracic spine. Procedure Note Fredo Ayala MD - 08/25/2023 EXAMINATION: CT CHEST W CONTRAST CLINICAL HISTORY: Head/neck cancer, assess treatment response s/p surgery and radiotherapy for HN cancer, assess for recurrence. C32.1, Malignant neoplasm of supraglottis TECHNIQUE: Helical CT of the chest after the intravenous administrationof contrast, Administered 110.0 ml of OMNIPAQUE 350.00 mg/ml. Thin-section reconstructions as well as coronal and sagittal reformatted images were generated. COMPARISON: CT chest 10/30/2021. FINDINGS: Pulmonary parenchyma: No pulmonary nodule. No focal airspace opacity. Airways: No central endobronchial abnormality. Pleura: No effusion. Lymph nodes: No lymphadenopathy. Heart and vasculature: Normal size of the heart. No significantpericardial effusion. Normal caliber of the thoracic aorta. Mild coronary artery calcification. Other mediastinal structures: No significant findings. Upper abdomen: No acute finding. Skeletal structures: No acute osseous abnormality. No suspicious osseouslesion. Degenerative changes of the thoracic spine. IMPRESSION No metastatic disease in the chest. I have personally reviewed the image(s) and the resident's interpretationand agree with the findings, Fredo Ayala MD at 08/25/2023 9:36 AM Thank you for letting us participate in the care of this patient. If youare a health care provider and have any questions regarding this report,please contact the number below. For patients who have questions please contactthe health personal caregiver that requested your imaging first. Ag Cruz MD IMG CT ORDERABLES documented in this encounter Visit Diagnoses Diagnosis Squamous cell carcinoma of supraglottis Malignant neoplasm of supraglottis documented in this encounter Administered Medications Inactive Administered Medications - up to 3 most recent administrations Medication Order MAR Action Action Date Dose Rate Site iohexoL (Omnipaque) (350 mg/mL) solution 0-200 mL 0-200 mL, Intravenous, ONCE PRN, 1 dose, Starting on Wed08/24/23 at 1339, Until Wed08/24/23 at 1339, Per Protocol, Warning Vesicant/Irritant Medication , Radiology Contrast, Routine Given 08/24/2023 1:39 PM EDT 110 mLs documented in this encounter Care Teams Clinical Biostatistics Director Relationship Specialty Start Date End Date Weston Tobias PA [address] [place] [address] PCP - General Family Medicine 02/25/21 documented as of this encounter
--- OUTSIDE RECORDS SUMMARY | 2023-12-01 15:58 | XMS_ITS ---
Author Organization [facility] [place] [address] Care Team Providers Care Qm Consultant Name Role Phone Weston Tobias Primary Care Provider +1- [phone] Active Problems Problem Noted Date Diagnosed Date Dysphonia 08/27/2021 Dysphasia 08/27/2021 Dysphagia 08/27/2021 Aphonia 06/05/2021 Throat cancer 05/13/2021 Status post laryngectomy 04/29/2021 Squamous cell carcinoma of supraglottis 04/07/19 22 Overview (09/10/2021): cT3 N2c M0, tobacco-associated Adjuvant Radiation Patient's Name: Reggie Pena, Sr. RT End Date: 07/30/2021 Year 1 Pre Tx wk 1 wk 2 wk 3 wk 4 wk 5 wk 6 wk 7 3 mo 6 mo 9 mo 10/30/21 01/29/22 04/29/22 ON ACTIVE TREATMENT COMPLETED TREATMENT [facility] - MD x [facility] - AP x Rad Onc x x x x x x x x x x x Screen for Need of Lung Ca Screening x Speech x PRN x PRN Soc Work PRN PRN PRN PRN PT PRN PRN Nutrition x x x x x x x x x G-tube x remove Dental Consult x CT Neck x PET/CT PRN Labs-CBC, CMP x x x x x x x TSH x 1 to 5 Years 12 mo 15 mo 18 mo 21 mo 24 mo 2.5 yrs 3 yrs 3.5 yrs 4 yrs 4.5 yrs 5 yrs 07/30/22 10/30/22 01/29/23 04/30/23 07/31/23 01/30/24 07/30/24 01/29/25 07/30/25 01/29/26 07/30/26 COMPLETED TREATMENT [facility] - MD x x x x [facility] - AP x x Rad Onc x x x x x Speech PRN Soc Work PRN PT PRN Nutrition PRN PET/CT PRN CT neck x Labs: TSH x x x x PCP Lung imaging* x x x x PCP *Lung imaging: <10 pack-years: not needed >10 pack-years and high risk (age 55+, 30+ P-Y tobacco history within 15 years, willing/able to consider lung ca tx): consider ordering CT Chest Screening Lung Cancer. > 10 pack-years and intermediate risk (age 50+, 20+ P-Y, willing/able to consider lung ca tx): consider ordering Chest Xray PA/lateral. Over 5 YEARS: Alternate annual follow-up appointments between [facility] AP and MD, beginning with AP at 6-year appt. Diabetes mellitus type 2, uncontrolled (DM) 02/15 Overview (02/26/2014): HgbA1c 9.7 Morbid obesity 02/26/2014 Hypertension (HTN) 02/26/2014 Tobacco abuse 02/26/2014 Panniculitis 02/23/2014 Overview (02/26/2014): With abcess s/p bedside I&D 02/23/14 Current Oncology Plans No current plan information found. Past Plans No past plan information found. Radiation Treatments * No radiation treatments are documented for this patient in [facility]. Treatments may have been administered in another system. Lifetime Dose Tracking * Chemical Lifetime Dose Automatic Entry Manual Entr y DLP (Dose Length Product) 1,854 mGy-cm 1,854 mGy-cm 0 mGy-cm CTDI (CT Dose Index) Min 54.23 mGy 54.23 mGy 0 m Gy CTDI (CT Dose Index) Max 54.23 mGy 54.23 mGy 0 m Gy
--- OUTSIDE RECORDS SUMMARY | 2023-12-01 15:58 | XMS_ITS | Encounter Summary ---
Author Organization [facility] Address [facility] [place] [address] Care Team Providers Care Truant Officer Name Role Phone Weston Tobias Primary Care Provider +1- [phone] Encounter Details Date Type Department Care Team (Latest Contact Info) Description 11/11/2023 Travel Social History Tobacco Use Types Packs/Day [...] place to sleep or slept in a fpc (including now)? Yes 04/07/2021 Sex and Gender Information Value Date Recorded Sex Assigned at Not on file Gender Identity Not on file Sexual Orientation Not on file documented as of this encounter Plan of Treatment Upcoming Encounters Date Type Department Care Team (Late st Contact Info) Description 02/02/2024 3:00 PM EST Office Visit Radiation Oncology at [address] [address] Ag Cruz MD [facility] [place] [address] documented as of this encounter Visit Diagnoses Not on filedocumented in this encounter Care Teams Truant Officer Relationship Specialty Start Date End Date Weston Tobias PA [address] [place] [address] PCP - General Family Medicine 02/25/21 documented as of this encounter
--- OUTSIDE RECORDS SUMMARY | 2023-12-01 15:58 | XMS_ITS | Clinical Summary ---
Author Organization [facility] Address [facility] [address] Care Team Providers Care Christian Ministries Professor Name Role Phone Weston Tobias Primary Care Provider +1- [phone] Allergies No known active allergies Medications Medication Sig Dispensed Refills Start Date End Date Status glipiZIDE (GLUCOTROL) 10 mg Tablet Take 10 mg by mouth 2 times daily (before meals). Active insulin glargine (Lantus;Semglee) Solution Inject 28 Units subcutaneously nightly. 10 mL 12 05/07/2021 Active insulin aspart U-100 (NovoLOG) Solution Inject 5 Units subcutaneously 3 times daily (before meals). 10 mL 12 05/07/2021 Active acetaminophen (Tylenol) 325 mg Tablet Take 2 tablets by mouth every 6 hours as needed for Pain or Fever. 30 tablet 1 05/07/2021 Active docusate sodium (Colace) 100 mg Capsule Take 100 mg by mouth as needed for Constipation. Active pantothenic Ac-Min Oil-Pet,Hyd (Aquaphor) 41 % Ointment Apply topically. Active silver sulfADIAZINE (Silvadene) 1 % Cream Apply topically 2 times daily. Apply to open areas of skin. 50 g 07/16/2021 Active Additional Information Patient not taking.Reported on 07/09/2022 gabapentin (Neurontin) 300 mg Capsule Take 1 capsule by mouth 3 times daily. 90 capsule 12 12/11/2021 Active lisinopriL (Zestril) 20 mg Tablet Take 20 mg by mouth daily. 11/16/2021 Active sulfamethoxazole-t rimethoprim DS (Bactrim DS) 800-160 mg Tablet Take 1 tablet by mouth 2 times daily. 42 tablet 02/05/2022 Active Additional Information Patient not taking.Reported on 03/09/2022 atorvastatin (Lipitor) 20 mg tablet TAKE 4 TABLETS BY MOUTH IN THE EVENING Active Dexcom G7 Sensor Device USE DIRECTED CHANGING SENSOR EVERY 10 DAYS 03/31/2023 Active FLUoxetine (PROzac) 10 mg capsule Take 1 capsule by mouth Daily at Noon. 05/10/2023 Active hydroCHLOROthiazid e (HydroDiuril) 25 mg tablet Take 25 mg by mouth daily. Active NIFEdipine CC (Adalat CC) 30 mg ER tablet Take 2 tablets by mouth Daily at Noon. 03/30/2023 Active levothyroxine (Synthroid) 112 mcg tablet Take 1 tablet by mouth Daily at Noon. 03/04/2023 Active Insulin Tresiba FlexTouch U-100 100 unit/mL (3 mL) Insulin Pen INJECT 5 UNITS SUBCUTANEOUSLY ONCE DAILY. INCREASE BY 2 UNITS EVERY 3 DAYS UNTIL FASTING BLOOD SUGAR IS UNDER 150. MAXIMUM OF 40 UNITS PER DAY. 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 RT End Date: 07/30/2021 Year 1 Pre Tx wk 1 wk 2 wk 3 wk 4 wk 5 wk 6 wk 7 3 mo 6 mo 9 mo 10/30/21 01/29/22 04/29/22 ON ACTIVE TREATMENT COMPLETED TREATMENT Mino - MD x Mino - AP x [...] 07/30/24 01/29/25 07/30/25 01/29/26 07/30/26 COMPLETED TREATMENT Mino - MD x x x x Mino [...] 5 YEARS: Alternate annual follow-up appointments between Mino AP and MD, beginning with AP at 6-year appt. Diabetes mellitus type 2, uncontrolled (DM) 02/15 Overview (02/26/2014): HgbA1c 9.7 Morbid obesity 02/26/2014 Hypertension (HTN) 02/26/2014 Tobacco abuse 02/26/2014 Panniculitis 02/23/2014 Overview (02/26/2014): With abcess s/p bedside I&D 02/23/14 Encounters Date Type Department Care Team Description 11/11/2023 8:00 AM EDT Office [place] [phone] Mat Ball, BUFFING WHEEL INSPECTOR Dysphonia 11/11/2023 Travel 10/07/2023 9:00 AM EDT Office [place] [address] Mat Ball, BUFFING WHEEL INSPECTOR Aphonia 10/07/2023 Travel 10/06/2023 Orders [place] [address] Gladys Granados RN Larynx cancer (Primary Dx) 09/15/2023 2:00 PM EDT Office [place] [address] Vasquez Mckinney PA Larynx cancer; H/O laryngectomy 09/15/2023 Travel 09/02/2023 Multidisciplinary Ca re [place] [phone] Ag Cruz MD from Last 3 Months Family History Medical History Relation Comments Coronary Artery Disease Other 1 Diabetes Other 1 Cancer Other 2 Relation Status Comments Other 1 Other 2 Social History Tobacco Use Types Packs/Day Years Used Date Smoking Tobacco: Former Cigarettes 1.5 24 0 04/1997 - 04/2021 Smokeless Tobacco: Never Tobacco Cessation:Ready to Q uit: Yes Comments:Declines Tobacco cessasion referral at this time. Alcohol Use Standard [...] place to sleep or slept in a care home (including now)? Yes 04/07/2021 Sex and Gender Information Value Date Recorded Sex Assigned at Not on file Gender Identity Not on file Sexual Orientation Not on file Last Filed Vital Signs Vital Sign Reading Time Taken Comments Blood Pressure 131/84 06/09/2023 11:16 AM EDT Pulse 95 06/09/2023 11:16 AM EDT Temperature 36.6 ??C (97.9 ??F) 06/09/2023 11:16 AM E DT Respiratory Rate 20 06/09/2023 11:16 AM EDT Oxygen Saturation 100% 06/09/2023 11:16 AM EDT Inhaled Oxygen Concentration - - Weight 167 kg (368 lb 1.6 oz) 09/15/2023 1:42 PM EDT Height 188 cm (6' 2) 09/15/2023 1:42 PM EDT Body Mass Index 47.26 09/15/2023 1:42 PM EDT Plan of Treatment Upcoming Encounters Date Type Department Care Team (Late st Contact Info) Description 02/02/2024 3:00 PM EST Office Visit Radiation Oncology at [address] [phone] Ag Cruz MD [facility] [place] [address] Health Maintenance Due Date Last Done Comments CT Colonography 1972 Colonoscopy 1972 Colorectal Cancer Screening 1972 FIT DNA 1972 FIT 1972 Sigmoidoscopy (10 year) with FIT yearly 1972 Sigmoidoscopy 1972 Pneumococcal Vaccine: At-Ris k 5-64yrs (1 of 2 - PCV) 1978 DM Opthalmology Exam 1982 DM Urine Microalbumin yearly 1982 HIV screen 1990 Hepatitis C Screening 1990 Hepatitis B vaccine (0-59 yrs) (1) 05/13/1991 Tetanus/Diphtheria/Pertussis Vaccines (1 - Tdap) 05/13/1991 DM Hemoglobin A1c 6 month 10/31/2021 04/30/2021, 01/2015 Zoster vaccine (1 of 2) 2022 Covid-19 Vaccine (1 - 2022-2 4 season) 2023 Influenza (Flu) vaccine (1 o f 1 - Influenza standard series) 10/17/2023 DM Creatinine yearly 08/23/2024 08/24/2023, 10/30/2021, 05/04/2021, Additional history exists Procedures Procedure Name Priority Date/Time Associated Diagnosis Comments CREATININE Routine 08/24/2023 11:06 AM EDT Squamous cell carcinoma of supraglottis HEMOGLOBIN A1C Routine 04/30/2021 12:56 AM EDT from Last 3 Months or Most Recently Relevant to Health Maintenance Results * (ABNORMAL) Creatinine (08/24/2023 11:06 AM EDT) Creatinine 0.76(L) 0.80 - 1.50 mg/dL [facility] Est Glomerular Filtration Rate 109 >=60 mL/min/1. 73 m?? [facility] Comment: This patient's estimated GFR was [...] In Lab Ag Cruz MD CHEMISTRY ORDERABLES [facility] [place] [address] * (ABNORMAL) Hemoglobin A1c (04/30/2021 12:56 AM EDT) Hemoglobin A1c 7.0(H) 4.3 - 5.6 % [facility] Comment: Reference Range: 4.3 - 5.6% 5.7 - 6.4% - Increased Risk of Developing Diabetes Mellitus >= 6.5% - Consistent with diagnosis of Diabetes Mellitus In the absence of hyperglycemia (i.e. plasma glucose > 200 mg/dL) or classic symptoms of hyperglycemia a repeat measurement of HbA1c should be performed on a separate sample to confirm the diagnosis. Diagnosis and Classification of Diabetes Mellitus, Diabetes Care 2013; 36: Suppl. 1, S67-74 Estimated Average Glucose 153 mg/dL [facility] Comment: eAG equivalents for HbA1c percentages: HbA1c(%) ?eAG(mg/dL) 6.0 ?126 6.5 ?140 7.0 ?154 7.5 ?169 8.0 ?183 8.5 ?197 9.0 ?212 9.5 ?226 10.0 ? 240 Limitations: The eAG calculation has not been validated on women, individuals below 18 years old and above 70 years old, and individuals with hemoglobinopathies. Additional resources are available on the ADA website. Juan ECKERT, Bob J, Anthony R, et al. ??Translating the A1C assay into estimated average glucose values. ??Diabetes Care 2008:31(8):7742-9919. Blood Venous Draw / Unknown 04/30/2021 12:56 AM EDT 04/30/2021 8:50 AM EDT Narrative Resulting Agency Comment Spec In Lab Milagros Roy CLOTH DYEING RANGE TENDER CHEMISTRY ORDERABLE S [facility] [place] [address] from Last 3 Months or Most Recently Relevant to Health Maintenance Advance Directives Documents on File Type Date Recorded Patient Semiconductor Wafers Tester Expl anation Personal Semiconductor Wafers Tester 03/25/2021 10:08 AM milagros briggs * Attempt Cardiopulmonary Resuscitation - Inpatient (Latest Code Status on File) Date Activated Date Inactivated Comments 04/29/2021 6:40 PM 05/07/2021 9:05 PM Question Answer Comments Code Status decision made by: Patient * Full Code Date Activated Date Inactivated Comments 02/23/2014 9:01 PM 02/26/2014 3:31 PM Question Answer Comments Order Status: Initial Order Does patient have decision m aking capacity? Yes, Order is based on Patients wishes. Care Teams Christian Ministries Professor Relationship Specialty Start Date End Date Weston Tobias PA [address] [place] [address] PCP - General Family Medicine 02/25/21
--- OUTSIDE RECORDS SUMMARY | 2023-12-01 15:58 | XMS_ITS | Encounter Summary ---
Author Organization [facility] Address [facility] [place] [address] Care Team Providers Care Division Leader Name Role Phone Weston Tobias Primary Care Provider +1- [phone] Encounter Details Date Type Department Care Team (Late st Contact Info) Description 06/16/2023 Telephone Radiation Oncology at [address] [phone] Yarely Casiano Social History Tobacco [...] place to sleep or slept in a skilled nursing (including now)? Yes 04/07/2021 Sex and Gender Information Value Date Recorded Sex Assigned at Not on file Gender Identity Not on file Sexual Orientation Not on file documented as of this encounter Miscellaneous Notes * Telephone Encounter - Yarely Casiano - 06/16/2023 1:[address]T [address] the [facility] to see when Reggie will be scheduled for an appt. Fam told me that edin tried to call his daughter to let her know that they do not take his insurance. She has not returned the call. I called her as well. No answer had to leave a message. documented in this encounter Plan of Treatment Upcoming Encounters Date Type Department Care Team (Late st Contact Info) Description 02/02/2024 3:00 PM EST Office Visit Radiation Oncology at [address] [phone] Ag Cruz MD [facility] [place] [address] documented as of this encounter Visit Diagnoses Not on filedocumented in this encounter Care Teams Division Leader Relationship Specialty Start Date End Date Weston Tobias PA [address] [place] [address] PCP - General Family Medicine 02/25/21 documented as of this encounter
--- OUTSIDE RECORDS SUMMARY | 2023-12-01 15:58 | XMS_ITS | Encounter Summary ---
Author Organization [facility] Address [facility] [place] [address] Care Team Providers Care Auto Wash Buffer Name Role Phone Weston Tobias Primary Care Provider +1- [phone] Encounter Details Date Type Department Care Team (Latest Contact Info) Description 06/09/2023 Travel Social History Tobacco Use Types Packs/Day [...] place to sleep or slept in a fdc (including now)? Yes 04/07/2021 Sex and Gender Information Value Date Recorded Sex Assigned at Not on file Gender Identity Not on file Sexual Orientation Not on file documented as of this encounter Plan of Treatment Upcoming Encounters Date Type Department Care Team (Late st Contact Info) Description 02/02/2024 3:00 PM EST Office Visit Radiation Oncology at [address] [phone] Ag Cruz MD [facility] [place] [address] documented as of this encounter Visit Diagnoses Not on filedocumented in this encounter Care Teams Auto Wash Buffer Relationship Specialty Start Date End Date Weston Tobias PA [address] [place] [address] PCP - General Family Medicine 02/25/21 documented as of this encounter
--- OUTSIDE RECORDS SUMMARY | 2023-12-01 15:58 | XMS_ITS | Encounter Summary ---
Author Organization [facility] [place] [address] Care Team Providers Care Claims Configuration Analyst Name Role Phone Weston Tobias Primary Care Provider +1- [phone] Encounter Details Date Type Department Care Team (Late st Contact Info) Description 09/15/2023 2:00 PM EDT Office [place] [phone] Vasquez Mckinney PA [facility] [place] [address] Larynx cancer; H/O laryngectomy Social History Tobacco Use Types Packs/Day Years [...] on file documented as of this encounter Last Filed Vital Signs Vital Sign Reading Time Taken Comments Blood Pressure - - Pulse - - Temperature - - Respiratory Rate - - Oxygen Saturation - - Inhaled Oxygen Concentration - - Weight 167 kg (368 lb 1.6 oz) 09/15/2023 1:42 PM EDT Height 188 cm (6' 2) 09/15/2023 1:42 PM EDT Body Mass Index 47.26 09/15/2023 1:42 PM EDT documented in this encounter Progress Notes * Vasquez Mckinney PA - 09/15/2023 2:00 PM EDT Images from the original note were not included. [facility] [place] Reggie Luan Pena Sr. is a 53 y.o. male followed for: Laryngeal cancer Primary: Larynx Stage: [id number] Treatment: 04/29/2021 - Total laryngectomy, partial pharyngectomy, bilateral neck dissection Completed XRT 07/30/2021 At his last ENT visit on 03/09/22, he was noting pain referred to the neck and bilateral ears which was stable. His breathing was normal, he was whatever he wanted, without issues swallowing. 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 He saw Dr. Cruz on 06/09/23, and he reported having recently been diagnosed with a cellulitis at his laryngectomy site, and was started on antibiotics by his PCP. He was noted to have an area of erosion of his laryngectomy stoma, felt related to trauma; but the patient was counseled to call if the area did not heal, or if there was progression in size. He recently underwent CT neck imaging on 08/24/23, and this showed no evidence of a recurrent enhancing mass or adenopathy; but he was noted to have mild nodular soft tissue thickening at the level of the hypopharynx, right of midline, of uncertain significance. He also had a CT chest on the same day, which revealed no metastatic disease in the chest. His case was presented to the head and neck tumor board, with recommendation for laryngoscopy with the ENT service. New issues since last visit: Doing okay. Noting pain in the bilateral necks since his treatment. Breathing well. TEP is working well. No hemoptysis. Swallowing is worsened some more lately. Also feels it is more painful over the last couple of weeks. Eats everything, but larger bites are more difficult. No new swelling in the neck. PROBLEM LIST Patient Active Problem List Diagnosis Code Panniculitis M79.3 Diabetes mellitus type 2, uncontrolled (DM) [id number] Morbid obesity E66.01 Hypertension (HTN) I10 Tobacco abuse Z72.0 Squamous cell carcinoma of supraglottis C32.1 Status post laryngectomy Z90.02 Throat cancer C14.0 Aphonia R49.1 Dysphonia R49.0 Dysphasia R47.02 Dysphagia R13.10 PAST MEDICAL HISTORY Past Medical History: Diagnosis Date Diabetes mellitus Obesity Panniculitis Throat cancer SOCIAL HISTORY Social History Tobacco Use Smoking status: Former Current packs/day: 0.00 Average packs/day: 1.5 packs/day for 24.0 years (36.0 ttl pk-yrs) Types: Cigarettes Start date: 04/1997 Quit date: 04/2021 Years since quittin.4 Smokeless tobacco: Never Tobacco comments: Declines Tobacco cessasion referral at this time. Substance Use Topics Alcohol use: No Alcohol/week: 0.0 standard drinks of alcohol Comment: rare alcohol MEDICATIONS Current Outpatient Medications on File Prior to Visit Medication Sig Dispense Refill atorvastatin (Lipitor) 20 mg tablet TAKE 4 TABLETS BY MOUTH IN THE EVENING Dexcom G7 Sensor Device USE DIRECTED CHANGING SENSOR EVERY 10 DAYS FLUoxetine (PROzac) 10 mg capsule Take 1 capsule by mouth Daily at Noon. hydroCHLOROthiazide (HydroDiuril) 25 mg tablet Take 25 mg by mouth daily. NIFEdipine CC (Adalat CC) 30 mg ER tablet Take 2 tablets by mouth Daily at Noon. levothyroxine (Synthroid) 112 mcg tablet Take 1 tablet by mouth Daily at Noon. Insulin Tresiba FlexTouch U-100 100 unit/mL (3 mL) Insulin Pen INJECT 5 UNITS SUBCUTANEOUSLY ONCE DAILY. INCREASE BY 2 UNITS EVERY 3 DAYS UNTIL FASTING BLOOD SUGAR IS UNDER 150. MAXIMUM OF 40 UNITS PER DAY. sulfamethoxazole-trimethoprim DS (Bactrim DS) 800-160 mg Tablet Take 1 tablet by mouth 2 times daily. (Patient not taking: Reported on 03/09/2022) 42 tablet 0 gabapentin (Neurontin) 300 mg Capsule Take 1 capsule by mouth 3 times daily. (Patient not taking: Reported on 06/09/2023) 90 capsule 12 lisinopriL (Zestril) 20 mg Tablet Take 20 mg by mouth daily. silver sulfADIAZINE (Silvadene) 1 % Cream Apply topically 2 times daily. Apply to open areas of skin. (Patient not taking: Reported on 07/09/2022) 50 g 0 pantothenic Ac-Min Oil-Pet,Hyd (Aquaphor) 41 % Ointment Apply topically. docusate sodium (Colace) 100 mg Capsule Take 100 mg by mouth as needed for Constipation. insulin glargine (Lantus;Semglee) Solution Inject 28 Units subcutaneously nightly. 10 mL 12 insulin aspart U-100 (NovoLOG) Solution Inject 5 Units subcutaneously 3 times daily (before meals).10 mL 12 acetaminophen (Tylenol) 325 mg Tablet Take 2 tablets by mouth every 6 hours as needed for Pain or Fever. 30 tablet 1 glipiZIDE (GLUCOTROL) 10 mg Tablet Take 10 mg by mouth 2 times daily (before meals). Current Facility-Administered Medications on File Prior to Visit Medication Dose Route Frequency Provider Last Rate Last Admin lidocaine (Xylocaine) 4 % (40 mg/mL) solution Topical (Top) Once PRN Ag Cruz MD lidocaine (Xylocaine) 4 % (40 mg/mL) solution Topical (Top) Once PRN Ag Cruz MD lidocaine (Xylocaine) 4 % (40 mg/mL) solution Topical (Top) Once PRN Ag Cruz MD ALLERGIES No Known Allergies ROS 8 point Review of Systems was normal except for pertinent positives and negatives included in the History of Present Illness. PHYSICAL EXAMINATION Physical Examination: VITALS - There were no vitals taken for this visit. GENERAL - Well dressed and well nourished. - Breathing comfortably without stridor. - No acute distress. FACE - Full and symmetric facial movement. - No dysmorphic facial features. EYES - Periocular structures and conjunctiva healthy without lesions. - Pupils are equal, round, and reactive to light. - Extraocular movement is full and intact. - No evidence of nystagmus. NOSE Please see findings under Flexible Laryngoscopy procedure. MOUTH - Lips and gingiva pink, moist, without lesions. - Edentulous. - Tongue and floor of mouth soft without lesions or masses. - Hard palate without lesions. PHARYNX - Soft palate without lesions. - Uvula is midline. - Oropharynx symmetric. NECK - Laryngectomy stoma appears healthy; there is some mild crusting just inside the meatus that is not obstructive. - TEP in place. - Post radiation changes noted. - Neck incisions well-healed. - No significant lymphadenopathy. - Thyroid gland without masses or asymmetry. - Trachea midline without deviation. NEURO - Cranial nerves II-XII grossly intact and symmetric. - Responds appropriately to questions. PSYCHE - Normal mood and affect. PROCEDURES Procedure: Flexible Laryngoscopy: Indications: Evaluation for mucosal lesion of the upper airway. The risks of the procedure were reviewed, and verbal consent was obtained. Topical anesthetic and decongestant applied to the nasal cavity. The scope was passed through the nasal cavity, through the nasopharynx, and into the oropharynx. The examination was recorded on the TelePack Unit and uploadedto the [employer] Director. Patient tolerated the procedure well without any complications. Nasal Cavity: Normal appearing mucosa. No obstructions or lesions noted. Nasopharynx: No lesions or masses noted. Oropharynx: Post-treatment changes noted. No masses, ulcerations or mucosal lesions noted. Neopharynx: There is a cuff of normal-appearing mucosa along the midline right anterior aspect, and which appears unchanged when compared with studies. Today's study. Study on 06/09/23 Study from 02/10/23. REVIEW OF IMAGES/STUDIES CT neck w contrast 08/24/23 FINDINGS: Stable postoperative laryngectomy changes and neck [...] Consider follow-up brain MRI imaging as warranted. CT chest w contrast 08/24/23 FINDINGS: Pulmonary parenchyma: No pulmonary nodule. No [...] lesion. Degenerative changes of the thoracic spine. IMPRESSION No metastatic disease in the chest. ASSESSMENT/RECOMMENDATIONS - No evidence of recurrence. Discussed with the patient that the nodularity noted on his recent CT neck appeared to correlate very well with a cuff of normal-appearing tissue at the anterior aspect of the neopharynx, and was unchanged when compared with prior studies. - The patient expressed understanding of these points and agreement with the plan, and all questions that were asked were answered to the patient's satisfaction. Plan: > Return to clinic per grid. > Patient should call if new concerning symptoms arise, or if they have any questions or concerns regarding their treatment. I appreciate the opportunity to be involved in Mr. Pena's care. Vasquez Mckinney PA-C [place], [place] [address] Office 09/15/2023 documented in this encounter Plan of Treatment Upcoming Encounters Date Type Department Care Team (Late st Contact Info) Description 02/02/2024 3:00 PM EST Office Visit Radiation Oncology at [address] [phone] Ag Cruz MD [facility] DR [place] [address] documented as of this encounter Visit Diagnoses Diagnosis Larynx cancer Malignant neoplasm of larynx, unspecified site H/O laryngectomy Other postprocedural status documented in this encounter Care Teams Claims Configuration Analyst Relationship Specialty Start Date End Date Weston Tobias PA [address] [place] [address] PCP - General Family Medicine 02/25/21 documented as of this encounter
--- OUTSIDE RECORDS SUMMARY | 2023-12-01 15:58 | XMS_ITS | Encounter Summary ---
Author Organization [facility] [place] [address] Care Team Providers Care Case Investigator Name Role Phone Weston Tobias Primary Care Provider +1- [phone] Reason for Visit * Speech Therapy (Routine) - Authorized Specialty Diagnoses / Procedures Referred By Jose A paz Referred To Contact Speech Therapy Diagnoses Larynx cancer Mat Casper MD [facility] [place] [address] Mat Ball, AUTOMATIC SPINNING LATHE SETTER Referral ID Status Reason Start Date Expiration Date Visits Requested Visits Authorized [id number] Authorized Evaluate and Treat 10/06/2023 10/05/2024 30 30 Encounter Details Date Type Department Care Team (Late st Contact Info) Description 10/07/2023 9:00 AM EDT Office [place] [address] Mat Ball, AUTOMATIC SPINNING LATHE SETTER Aphonia Social History Tobacco Use Types Packs/Day Years [...] money to buy more. Never true 04/07/19 Within the past 12 months, t he [...] place to sleep or slept in a chcf (including now)? Yes 04/07/2021 Sex and Gender Information Value Date Recorded Sex Assigned at Not on file Gender Identity Not on file Sexual Orientation Not on file documented as of this encounter Miscellaneous Notes * Initial Evaluation - Mat Ball, AUTOMATIC SPINNING LATHE SETTER - 10/07/2023 9:00 AM EDT Department of Rehabilitation Medicine Speech Pathology Plan Of Care TEP Re-Evaluation/Placement Reggie Pena Sr. : 1970 10/07/2023 9:31 AM Total Evaluation Time: 30 min. Eval. Time Codes: 0 min. Evaluation Type: TEP Diagnosis/Diagnosis Code(s): R49.1 (Aphonia), R13.10 (Dysphagia Unspecified), Z98.89 (History of Laryngectomy) Referring Physician: Mat Casper MD Evaluation Procedures: Direct assessment/re-placement of TEP/stoma and Pt/Caregiver education and training Functional Limitations: Aphonia and dysphagia s/p total laryngectomy with need for alaryngeal communication. Medicare Certification Period: N/a KX Modifier used beginning date: N/A History: Pt. Is a 53 y.o. male with history of obesity, T2DM, HTN, Tobacco use, [id number] SCCa of the supraglottic larynx, recent CVA's ( no residual effects on language or cognition). S/P total laryngectomy and primary creations of TEP on 04/29/21. Initial TEP sizing and placement on 05/07/21. Pt now returns for reassessment of TEP. Last TEP change was on 03/18/2023 PMH Past Medical History: Diagnosis Date Diabetes mellitus Obesity Panniculitis Throat cancer S: Pt. denies significant pain or distress at this time Pt reports leaking through or around TEP at this time. No family present for discussion/support O: Reviewed record Pt was referred by Mat Casper MD (ENT) for assessment and re-placement of TEP Oral-Peripheral/Neck Examination 6mm 20Fr Ryan Veronica Classic TEP with large tracheal and esophageal flange in place with good fit. Leaking is noted through TEP when drinking water. Phonation is excellent. Patent stoma. Oral structures and functions appear WNL/WFL Minimal tracheal secretions No palpable adenopathy TEP Placement Removed 6mm 20Fr Ryan Veronica Classic TEP with large tracheal and esophageal flange without difficulty; significant fungal colonization 6mm 20Fr Ryan Veronica Classic TEP with large tracheal and esophageal flange placed Good phonation with finger occlusion No leakage noted through or around TEP at this time Provided 20Fr. Ryan Veronica plug. HME Pt not interested at this time Pt/Caregiver Education & Training Reviewed how to use 20 Fr. Plug. Reviewed HME Supplies Provided to Pt/Caregiver 6mm 20fr Ryan Veronica Classic TEP with large tracheal and esophageal flange 20Fr. Ryan Veronica Plug. A: Pt tolerated TEP change well with good phonation and without leakage through or around at this time. Provided 20Fr. Ryan Veronica plug. . Recommendations Flush TEP with saline at least 3x/day Reserve TEP PRN Contact ENT/AUTOMATIC SPINNING LATHE SETTER with any ?'s or concerns re: TEP; contact info. given to pt Current Goals None. P: D/C from Speech Pathology service for now. Patient to f/u PRN in ENT Clinic Pt. is in agreement with plan of treatment Mat Ball MS, CCC-AUTOMATIC SPINNING LATHE SETTER Speech-Language Pathologist Rehabilitation Medicine Pager # [phone] documented in this encounter Plan of Treatment Upcoming Encounters Date Type Department Care Team (Late st Contact Info) Description 02/02/2024 3:00 PM EST Office Visit Radiation Oncology at [address] [address] Ag Cruz MD [facility] [place] [address] Scheduled Referrals Name Type Priority Associated Diagnoses Orde r Schedule Referral to Speech Therapy Outpatient Referral Routine Larynx cancer Ordered: 10/06/2023 documented as of this encounter Visit Diagnoses Diagnosis Aphonia documented in this encounter Care Teams Case Investigator Relationship Specialty Start Date End Date Weston Tobias PA [address] [place] [address] PCP - General Family Medicine 02/25/21 documented as of this encounter
--- OUTSIDE RECORDS SUMMARY | 2023-12-01 15:59 | XMS_ITS | Encounter Summary ---
[place] [address] Care Team Providers Care Corporate Executive Chef Name Role Phone Weston Tobias Primary Care Provider +1- [phone] Reason for Visit * Speech Therapy (Routine) - Closed Specialty Diagnoses / Procedures Referred By Contdavid paz Referred To Contact Speech Therapy Diagnoses Larynx cancer H/O laryngectomy Mat Casper MD [facility] [place] [place] [address] [facility] [employer] [place] [address] Referral ID Status Reason Start Date Expiration Date V isits Requested Visits Authorized [id number] Closed Evaluate and Treat 04/17/2022 04/17/2023 30 30 Encounter Details Date Type Department Care Team (Late st Contact Info) Description 04/21/2022 1:00 PM EST Office [place] [address] Mat Ball, JAWBONE BREAKER Aphonia Social History Tobacco Use Types Packs/Day [...] place to sleep or slept in a nursing home (including now)? Yes 04/07/2021 Sex and Gender Information Value Date Recorded Sex Assigned at Not on file Gender Identity Not on file Sexual Orientation Not on file documented as of this encounter Miscellaneous Notes * Initial Evaluation - Mat Ball, JAWBONE BREAKER - 04/21/2022 1:00 PM EST Department of Rehabilitation Medicine Speech Pathology Plan Of Care TEP Re-Evaluation/Placement Reggie Pena Sr. : 1970 04/21/2022 3:24 PM Total Evaluation Time: 30 min. Eval. Time [...] beginning date: N/A History: Pt. Is a 51 y.o. male with history of??obesity, T2DM, HTN, Tobacco use (with plans to quitafter this admission), with [id number] SCCa of the supraglottic larynx.?S/P total laryngectomy and primary creations of TEP on 04/29/21.?Initial TEP sizing and placement on 05/07/21. ??Pt now returns for reassessment of TEP. ??Last TEP change was on 06/05/21. PMH Past Medical History: Diagnosis Date ??? Diabetes mellitus ??? Obesity ??? Panniculitis ??? Throat cancer S: ??? Pt. denies significant pain or distress at this time ??? Pt denies leaking through or around TEP at this time, but reports some episodes of difficulty phonating. ??? No family present for discussion/support O: ??? Reviewed record ??? Pt was referred by Mat Casper MD (ENT) for assessment and re- placement of TEP Oral-Peripheral/Neck Examination ??? 10mm 20Fr Ryan Veronica Classic TEP in place with sightly loose fit. ??? Phonation is excellent. ??? No leakage is noted through or around TEP at this time. ??? Pt has had this current prosthesis for approximately 11 months time. ??? Patent stoma. Development of wound again at the inferior aspect of stoma. Pt is treating independently. ??? Oral structures and functions appear WNL/WFL ??? Minimal tracheal secretions ??? No palpable adenopathy TEP Placement ??? Removed 10mm 20Fr Ryan Veronica Classic TEP without difficulty. ??? Good open tract phonation ??? Re-measured to 8mm on the superior and right side. 10mm on the left side. ??? 10mm 20Fr Ryan Veronica classic TEP placed ??? Good phonation with finger occlusion ??? No leakage noted through or around TEP at this time HME ??? Pt not interested at this time Pt/Caregiver Education & Training ??? Discussed the wound inferior to stoma. Encouraged pt to see ENT if his independent treatment was not successful. Supplies Provided to Pt/Caregiver ??? 10mm 20fr Ryan Veronica Classic TEP A: Pt tolerated TEP change well with good phonation and without leakage through or around at this time. Encouraged pt to see ENT for treatment of stomal wound if he was not successful with independent treatment. Recommendations ?? Flush TEP with saline at least 3x/day ?? [place] TEP PRN ?? Contact ENT/JAWBONE BREAKER with any ?'s or concerns re: TEP. ?? Wear filter system 24 hours a day as tolerated. Current Goals None. P: ??? D/C from Speech Pathology service for now. Patient to f/u PRN in ENT Clinic ??? Pt. is in agreement with plan of treatment Mat Ball MS, CCC-JAWBONE BREAKER Speech-Language Pathologist Rehabilitation Medicine Pager # [phone] documented in this encounter Plan of Treatment Upcoming Encounters Date Type Department Care Team (Late st Contact Info) Description 02/02/2024 3:00 PM EST Office Visit Radiation Oncology at [address] [phone] Ag Cruz MD [facility] [place] [address] Scheduled Referrals Name Type Priority Associated Diagnoses Orde r Schedule Referral to Speech Therapy Outpatient Referral Routine Larynx cancer H/O laryngectomy Ordered: 04/17/2022 documented as of this encounter Visit Diagnoses Diagnosis Aphonia documented in this encounter Care Teams Corporate Executive Chef Relationship Specialty Start Date End Date Weston Tobias PA [address] [place] [address] PCP - General Family Medicine 02/25/21 documented as of this encounter
--- OUTSIDE RECORDS SUMMARY | 2023-12-01 15:59 | XMS_ITS | Encounter Summary ---
Author Organization [facility] Address [facility] [place] [place] [address] Care Team Providers Care Sharepoint Manager Name Role Phone Weston Tobias Primary Care Provider +1- [phone] Encounter Details Date Type Department Care Team (Late st Contact Info) Description 05/06/2022 2:00 PM EDT Office Visit Radiation Oncology at [address] [phone] Ag Cruz MD [facility] [place] [address] Squamous cell carcinoma of supraglottis Social History [...] place to sleep or slept in a alf (including now)? Yes 04/07/2021 Sex and Gender Information Value Date Recorded Sex Assigned at Not on file Gender Identity Not on file Sexual Orientation Not on file documented as of this encounter Last Filed Vital Signs Vital Sign Reading Time Taken Comments Blood Pressure 161/105 05/06/2022 2:24 PM EDT Pulse 80 05/06/2022 2:24 PM EDT Temperature 37.2 ??C (99 ??F) 05/06/2022 2:2 4 PM EDT Respiratory Rate - - Oxygen Saturation 99% 05/06/2022 2:2 4 PM EDT Inhaled Oxygen Concentration - - Weight 175.3 kg (386 lb 6.4 oz) 023 2:24 PM EDT with shoes Height - - Body Mass Index 52.41 03/09/2022 11:15 AM EST documented in this encounter Progress Notes * Ag Cruz MD - 05/06/2022 2:00 PM EDT Images from the original note were not included. [facility] Medicine Radiation Oncology Radiation Oncology Follow Up Visit Patient Identity: Patient name: Reggie Pena Sr. Date of : 1970 Chief complaint: Laryngeal cancer Referring: Weston Tobias PA [address] [place] [address] History: Oncologic History: DIAGNOSIS / TREATMENT OVERVIEW?? 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 Adjuvant radiotherapy ?? TREATMENT DETAILS Treatment Intent Curative Site Treated Post-operative bed, at risk laurita basins Technique VMAT, SIB Adaptive Plan Required No Concurrent Chemo No Clinical Trial No TECHNICAL DETAILS ? Total Dose: 60 Gy @ 2 Gy/fxn, 54 Gy @ 1.8 Gy/fxn ? PLAN IMAGES ? Post-Treatment Course: CT HN w/ contrast 10/30/21: 1. No evidence of local tumor recurrence. 2. No cervical lymphadenopathy. 3. No evidence of regional distant metastases. CT Chest w/ contrast 10/30/21: 1. No evidence of metastatic disease within the chest. 2. Hepatic steatosis. Time from RT completion: ~ 9 months Interval History: he noted altered vision in his left eye, and was sent for an MRI of his brain / orbits. The MRI was unremarkable. Currently, he has the following symptoms: Symptom Description Intervention Pain Left shoulder pain since surgery, but bilateral neck pain. s/p PT and doing home exercises. Relatively stable. Acetaminophen 1000 mg BID, Gabapentin 300 mg TID Dysphagia Denies Xerostomia / Dysgeusia Moderate dysgeusia, mild xersotomia Neck Fibrosis / Lymphedema / Pain Significant fibrosis, moderate lymphedema. Tightness of central neck. He a sensation of burning extending down both sides of the neck to shoulders. He notices a sensation of weakness at times with both arms. Dental Edentulous Nutrition Issues / Weight Loss No issues Feeding Tube Not Present Skin Denies Otalgia / Hearing Changes No issues Smoking Status Not smoking Voice Changes Using TEP. Speaking is worse now over the past few days, but he attributes this to weather [place] Other No Issues I have personally reviewed the imaging studies referenced above. Exam: Patient Vitals for the past 24 hrs: Temp Pulse BP SpO2 05/06/22 1424 37.2 ??C (99 ??F) 80 (!) 161/105 99 % Physical Exam Constitutional: Appearance: He is well-developed. HENT: Mouth/Throat: Comments: Visual inspection of OC and OP revealed no evidence of suspicious masses or lesions. Palpation revealed no suspicious masses and no induration along the posterior tongue. Moisture good. Eyes: Pupils: Pupils are equal, round, and reactive to light. Neck: Comments: Palpation reveals no adenopathy in cervical, SCLV, ICLV laurita basins. Moderate to severe fibrosis bilateral neck. Stoma with small volume granulation tissue inferiorly, as well as mild erythema inferiorly around the stoma. Improved from prior. Crusting evident. No evidence of recurrent disease. Cardiovascular: Rate and Rhythm: Normal rate. Pulmonary: Effort: Pulmonary effort is normal. Breath sounds: Normal breath sounds. Skin: Findings: No erythema. Neurological: Mental Status: He is alert and oriented to person, place, and time. Cranial Nerves: No cranial nerve deficit. Psychiatric: Behavior: Behavior normal. Procedure: Flexible laryngoscopy was performed. The right naris was anesthetized with aerosolized lidocaine, and the laryngoscope was passed without difficulty. The nasopharynx and neopharynx were visualized and no concerning findings were noted. Performance Status: KPS 70-80% ECOG 1 Restricted in physically strenuous activity but ambulatory and able to carry out work of a light or sedentary nature, e.g., light house work, office work Summary/Recommendations: Impression: 1. Disease Status: ROSEMARY clinically We discussed that he is still at risk of recurrence and requires continued surveillance 2. Toxicity: ??? Bilateral fibrosis of neck, moderate. PT with mild improvement, doing home exercises. Discussed increasing gabapentin but not interested. ??? Dental Care: edentulous ??? Thyroid: per PCP Plan: 1. Follow per [facility] grid. Thank you for allowing me to participate in the care of Reggie Pena Sr.. AG CRUZ MD New Orders: No orders of the defined types were placed in this encounter. ??? National [facility] [place] (N[facility]) [facility] ??? [employer] Commission on Cancer (ACS [employer]) Accredited Cancer Program ??? [employer] (ACR) Accredited Radiation Oncology Program documented in this encounter Plan of Treatment Upcoming Encounters Date Type Department Care Team (Late st Contact Info) Description 02/02/2024 3:00 PM EST Office Visit Radiation Oncology at [address] [phone] Ag Cruz MD [facility] [place] [address] documented as of this encounter Visit Diagnoses Diagnosis Squamous cell carcinoma of supraglottis Malignant neoplasm of supraglottis documented in this encounter Care Teams Sharepoint Manager Relationship Specialty Start Date End Date Weston Tobias PA [address] [place] [address] PCP - General Family Medicine 02/25/21 documented as of this encounter
--- OUTSIDE RECORDS SUMMARY | 2023-12-01 15:59 | XMS_ITS | Encounter Summary ---
Author Organization [place] [address] Care Team Providers Care Computer Systems Software Architect Name Role Phone Weston Tobias Primary Care Provider +1- [phone] Reason for Referral * Consultation (Routine) - Closed Specialty Diagnoses / Procedures Referred By Contac t Referred To Contact Ophthalmology Diagnoses Visual complaint Weston Tobias PA [address] [place] [address] Zafar Pike MD [facility] [place] [address] Referral ID Status Reason Start Date Expiration Date V isits Requested Visits Authorized [id number] Closed Consult, Test & Treat PCP Updated and/or Approved 04/08/2022 04/08/2023 12 12 Encounter Details Date Type Department Care Team (Late st Contact Info) Description 04/08/2022 Transcribe Orders eDH Incoming Referrals [phone] Weston Tobias PA [address] [place], [place] [address] Visual complaint Social History Tobacco Use Types Packs/Day Years [...] place to sleep or slept in a usp (including now)? Yes 04/07/2021 Sex and Gender Information Value Date Recorded Sex Assigned at Not on file Gender Identity Not on file Sexual Orientation Not on file documented as of this encounter Plan of Treatment Upcoming Encounters Date Type Department Care Team (Late st Contact Info) Description 02/02/2024 3:00 PM EST Office Visit Radiation Oncology at [address] [phone] Ag Cruz MD [facility] [place] [address] Scheduled Referrals Name Type Priority Associated Diagnoses Orde r Schedule Referral to Neurology Outpatient Referral Routine Visual complaint Ordered: 04/08/2022 documented as of this encounter Visit Diagnoses Diagnosis Visual complaint Other ill-defined disorder of eye documented in this encounter Care Teams Computer Systems Software Architect Relationship Specialty Start Date End Date Weston Tobias PA [address] [place] [address] PCP - General Family Medicine 02/25/21 documented as of this encounter
--- OUTSIDE RECORDS SUMMARY | 2023-12-01 15:59 | XMS_ITS | Encounter Summary ---
Author Organization [facility] Address [address] [facility] [address] Care Team Providers Care Adjusto Writer Operator Name Role Phone Weston Tobias Primary Care Provider +1- [phone] Encounter Details Date Type Department Care Team (Latest Contact Info) Description 03/09/2022 Travel Social History Tobacco Use Types Packs/Day [...] place to sleep or slept in a penitentiary (including now)? Yes 04/07/2021 Sex and Gender Information Value Date Recorded Sex Assigned at Not on file Gender Identity Not on file Sexual Orientation Not on file documented as of this encounter Plan of Treatment Upcoming Encounters Date Type Department Care Team (Late st Contact Info) Description 02/02/2024 3:00 PM EST Office Visit Radiation Oncology at [address] [phone] Ag Cruz MD [facility] DR RADIATION [place] [address] documented as of this encounter Visit Diagnoses Not on filedocumented in this encounter Care Teams Adjusto Writer Operator Relationship Specialty Start Date End Date Weston Tobias PA [address] [place] [address] PCP - General Family Medicine 02/25/21 documented as of this encounter
--- OUTSIDE RECORDS SUMMARY | 2023-12-01 15:59 | XMS_ITS | Encounter Summary ---
Author Organization [facility] Address [facility] [address] Care Team Providers Care Outboard Motor Inspector Name Role Phone Weston Tobias Primary Care Provider +1- [phone] Encounter Details Date Type Department Care Team (Late st Contact Info) Description 05/03/2023 Telephone Radiation Oncology at [address] [phone] Yarely Casiano Social History Tobacco [...] * Telephone Encounter - Yarely Casiano - 05/03/2023 10:00 AM EDT Reggie's appt for 05/05/23 has been canceled. I called his daughter milagros to reschedule the appt andhad to leave a message asking her to call ne back documented in this encounter Plan of Treatment Upcoming Encounters Date Type Department Care Team (Late st Contact Info) Description 02/02/2024 3:00 PM EST Office Visit Radiation Oncology at [address] [phone] Ag Cruz MD [facility] [place] [address] documented as of this encounter Visit Diagnoses Not on filedocumented in this encounter Care Teams Outboard Motor Inspector Relationship Specialty Start Date End Date Weston Tobias PA [address] [place] [address] PCP - General Family Medicine 02/25/21 documented as of this encounter
--- OUTSIDE RECORDS SUMMARY | 2023-12-01 15:59 | XMS_ITS | Encounter Summary ---
Author Organization [facility] Address [facility] [place] [address] Care Team Providers Care Study Specialist Name Role Phone Weston Tobias Primary Care Provider +1- [phone] Encounter Details Date Type Department Care Team (Latest Contact Info) Description 03/18/2023 Travel Social History Tobacco Use Types Packs/Day [...] PM EST Office Visit Radiation Oncology at [address] [phone] Ag Cruz MD [facility] [place] [address] documented as of this encounter Visit Diagnoses Not on filedocumented in this encounter Care Teams Study Specialist Relationship Specialty Start Date End Date Weston Tobias PA [address] [place] [address] PCP - General Family Medicine 02/25/21 documented as of this encounter
--- OUTSIDE RECORDS SUMMARY | 2023-12-01 15:59 | XMS_ITS | Encounter Summary ---
Author Organization [facility] [place] [address] Care Team Providers Care Annual Giving Director Name Role Phone Weston Tobias Primary Care Provider +1- [phone] Reason for Visit * Reason Comments Follow-up Keeps getting infect ions Still has pain Needs ok for disability Encounter Details Date Type Department Care Team (Latest Contact Info) Description 10/30/2021 11:40 AM EDT Office [place] [phone] Mat Harvey MD [facility] [place] [address] Larynx cancer; Postoperative hypothyroidism Social History Tobacco Use Types Packs/Day Years [...] - Inhaled Oxygen Concentration - - Weight 117.9 kg (260 lb) 10/30/2021 11:21 AM EDT Height 182.9 cm (6') 10/30/2021 11:21 AM EDT Body Mass Index 35.26 10/30/2021 11:21 AM EDT documented in this encounter Progress Notes * Tomy Tipton MD - 10/30/2021 11:40 AM EDT [facility] FOLLOW UP NOTE Date of visit: 05/15/2021 Reggie Luan Pena Sr. is a 51 y.o. male with a hx of [id number] SCCa of supraglottic larynx s/p bilateral neck dissection, left paty thyroidectomy, total laryngectomy, partial pharyngectomy performed on 04/29/2021 with . Here for a postoperative exam. Surgery 04/29/21 Bulky exophytic supraglottic tumor with extension in the left pyriform sinus and left lateral pharynx with extension to the inferior portion of the left tonsil. Bilateral IIA-IV neck dissections, level dissection, left hemithryoidectomy, and total laryngectomy/partial pharyngectomy , and left tonsillectomy performed. Hand sewn primary??T??closure. 6LGT placed at the conclusion of the case.??Angelina mansfield TEP performed with placement of 16fr NGT. 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 Panniculitis M79.3 ??? Diabetes mellitus type 2, uncontrolled (DM) [id number] ??? Morbid obesity E66.01 ??? Hypertension (HTN) I10 ??? Tobacco abuse Z72.0 ??? 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 Status post laryngectomy Z90.02 ??? Throat cancer C14.0 ??? Aphonia R49.1 ??? Dysphonia R49.0 ??? Dysphasia R47.02 ??? Dysphagia R13.10 PAST MEDICAL HISTORY Past Medical History: Diagnosis Date ??? Diabetes mellitus ??? Obesity ??? Panniculitis ??? Throat cancer SOCIAL HISTORY Social History Tobacco Use ??? Smoking status: Former Smoker Packs/day: 1.50 Years: 24.00 Pack years: 36.00 Types: Cigarettes Quit date: 04/2021 Years since quittin.5 ??? Smokeless tobacco: Never Used ??? Tobacco comment: Declines Tobacco cessasion referral at this time. Substance Use Topics ??? Alcohol use: No Alcohol/week: 0.0 standard drinks Comment: rare alcohol MEDICATIONS Current Outpatient Medications on File Prior to Visit Medication Sig Dispense Refill ??? gabapentin (Neurontin) 300 mg Capsule TAKE 1 CAPSULE BY MOUTH ONCE DAILY AT NIGHT ??? sulfamethoxazole-trimethoprim DS (Bactrim DS) 800-160 mg Tablet Take 1 tablet by mouth 2 times daily. ??? pantothenic Ac-Min Oil-Pet,Hyd (Aquaphor) 41 % Ointment Apply topically. ??? docusate sodium (Colace) 100 mg Capsule Take 100 mg by mouth as needed for Constipation. ??? lisinopriL (Zestril) 10 mg Tablet Take 1 tablet by mouth daily. 30 tablet 12 ??? acetaminophen (Tylenol) 325 mg Tablet Take 2 tablets by mouth every 6 hours as needed for Pain or Fever. 30 tablet 1 ??? metFORMIN (GLUCOPHAGE) 1,000 mg Tablet Take 1,000 mg by mouth nightly. Indications: type 2 diabetes mellitus ??? silver sulfADIAZINE (Silvadene) 1 % Cream Apply topically 2 times daily. Apply to open areas ofskin. (Patient not taking: No sig reported) 50 g 0 ??? insulin glargine (Lantus;Semglee) Solution Inject 28 Units subcutaneously nightly. (Patient nottaking: No sig reported) 10 mL 12 ??? insulin aspart U-100 (NovoLOG) Solution Inject 5 Units subcutaneously 3 times daily (before meals). (Patient not taking: No sig reported) 10 mL 12 ??? glipiZIDE (GLUCOTROL) 10 mg Tablet Take 10 mg by mouth 2 times daily (before meals). Current Facility-Administered Medications on File Prior to Visit Medication Dose Route Frequency Provider Last Rate Last Admin ??? [COMPLETED] iohexoL (Omnipaque) (350 mg/mL) solution 0-200 mL 0-200 mL Intravenous Once PRN Elder Landry MD 110 mL at 10/30/21 0838 ALLERGIES No Known Allergies ROS Pertinent positive findings discussed above. No other findings on review of constitutional visual, cardiovascular, respiratory, gastrointestinal, musculoskeletal, neurological, hematologic systems. PHYSICAL EXAMINATION General: Well developed, no distress Head/face: Normocephalic, atraumatic Oral cavity: Normal exam of the lips, gums, floor of mouth, tongue. Normal oral mucosa. Normal palate wnl Oropharynx: Normal soft palate, tonsils, lateral pharyngeal wall, posterior pharynx wnl Neck: Stoma with surrounding radiation associated erythema and a superficial wound at the base with no active cellulitis. Crusting present around TEP Resp: no stridor, normal respirations. Skin: Incision: c/d/i no evidence of infection MSK: No trismus, normal neck range of motion. Tender along the course of the SCM bilaterally Neuro: AxOx3; CN II-XII is grossly intact Psych: Normal mood and affect. Responds appropriately to questions. PROCEDURES None performed IMAGE REVIEW EXAMINATION: CT NECK SOFT TISSUE W CONTRAST (GENERIC) ?? 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 Adjuvant radiotherapy completed 07/30/21. ?? TECHNIQUE: CT neck performed after the intravenous administration of contrast. . ?? COMPARISON: CT neck 03/20/[address] scan 06/05/2021 ?? FINDINGS: Interval laryngectomy since the 03/20/2021 study with a tracheostomy tube and a tracheoesophageal voice prosthesis device in place. Multiple surgical clips bilaterally in the neck from prior neck dissections in addition to the left tongue base region from additional dissection. There is no abnormal enhancement or soft tissue mass to suggest local recurrence. ?? No cervical lymphadenopathy bilaterally throughout the neck. There is blurring of the fat planes throughout the neck from expected postsurgical changes. ?? The visualized portions of the lungs show no pulmonary nodules. No focal osseous lesions to suggest osseous metastases. The visualized portions of the brain are grossly normal. ?? Incidental 6.3 cm lipoma in the dorsal left neck soft tissues. ? IMPRESSION 1. No evidence of local tumor recurrence. 2. No cervical lymphadenopathy. 3. No evidence of regional distant metastases. EXAMINATION: CT CHEST W CONTRAST ?? CLINICAL HISTORY: Head/neck cancer, assess treatment response; Head/neck cancer, staging s/p surgery / radiotherapy for laryngeal cancer, assess for progression ?? TECHNIQUE: 3.75 mm thick axial contiguous sections were obtained through the chest via helical acquisition after the intravenous administration of contrast, 110 mL Omnipaque 350. Thin-section reconstructions as well as coronal and sagittal reformatted images were generated. ?? COMPARISON: PET/CT 03/31/2021 ?? FINDINGS: Pulmonary parenchyma: The lungs are clear. No pulmonary nodules. Airways: The central airways are patent. Pleura: No pleural effusion or pneumothorax. Lymph nodes: No enlarged lymph nodes. Heart, pericardium, and great vessels: No significant findings. Other mediastinal structures: No significant findings. Lower neck: Please see separate report of CT neck from today. Upper abdomen: Diffuse low attenuation of the liver consistent with hepatic steatosis. Small punctate hepatic calcified granuloma. Body wall soft tissues: No significant findings. Skeletal structures: No suspicious osseous lesions. ?? IMPRESSION 1. No evidence of metastatic disease within the chest. 2. Hepatic steatosis. 3. Please see separate report of CT neck. ASSESSMENT/RECOMMENDATIONS Assessment: Hx of [id number] SCCa of supraglottic larynx s/p bilateral neck dissection, left paty thyroidectomy, total laryngectomy, partial pharyngectomy performed on 04/29/2021 with . ROSEMARY Advised to use Aquaphor ointment 2-3 times daily around his stoma for the next month Avoid using stomal stickers and HME while wound is healing Will recheck TSH for chronic fatigue RTC per grid * Mat Harvey MD - 10/30/2021 11:40 AM EDT [facility] Attending Note Patient was seen and examined with the above resident. I agree with the history, exam findings, andrecommendations. Summary No evidence of recurrence on exam and imaging Check TSH for fatigue Follow up in 3 months I appreciate the opportunity to be involved in Mr. Pena's care. MAT HARVEY MD 10/30/2021 documented in this encounter Plan of Treatment Upcoming Encounters Date Type Department Care Team (Late st Contact Info) Description 02/02/2024 3:00 PM EST Office Visit Radiation Oncology at [address] [phone] Ag Cruz MD [facility] RADIATION ONCOLOGY [place] [id number] documented as of this encounter Results * (ABNORMAL) TSH (10/30/2021 12:15 PM EDT) Thyroid Stimulating Hormone 8.49(H) 0.27 - 4.20 mcIU/mL [facility] Comment: Reference Interval (mcIU/mL): Females: ??First Trimester: 0.23-3.88 ??Second Trimester: 0.22-3.90 ??Third Trimester: 0.44-4.66 Blood 10/30/2021 12:1 5 PM EDT 10/30/2021 12:28 PM EDT Narrative Resulting Agency Comment Spec In Lab Mat Harvey MD CHEMISTRY ORDERABL ES [facility] [place] [address] documented in this encounter Visit Diagnoses Diagnosis Larynx cancer Malignant neoplasm of larynx, unspecified site Postoperative hypothyroidism Postsurgical hypothyroidism documented in this encounter Care Teams Annual Giving Director Relationship Specialty Start Date End Date Weston Tobias PA [address] [place] [address] PCP - General Family Medicine 02/25/21 documented as of this encounter
--- OUTSIDE RECORDS SUMMARY | 2023-12-01 15:59 | XMS_ITS | Encounter Summary ---
[place] [address] Care Team Providers Care Food Production Associate Name Role Phone Weston Tobias Primary Care Provider +1- [phone] Reason for Referral * Speech Therapy (Routine) - Closed Specialty Diagnoses / Procedures Referred By Contdavid paz Referred To Contact Speech Therapy Diagnoses Larynx cancer H/O laryngectomy Mat Casper MD [facility] [place] [address] [facility] [place] [address] Referral ID Status Reason Start Date Expiration Date V isits Requested Visits Authorized [id number] Closed Evaluate and Treat 04/17/2022 04/17/2023 30 30 Encounter Details Date Type Department Care Team (Late st Contact Info) Description 04/15/2022 Orders [place] [address] Gladys Granadso RN Larynx cancer; H/O laryngectomy Social History Tobacco [...] place to sleep or slept in a group home (including now)? Yes 04/07/2021 Sex and Gender Information Value Date Recorded Sex Assigned at Not on file Gender Identity Not on file Sexual Orientation Not on file documented as of this encounter Plan of Treatment Upcoming Encounters Date Type Department Care Team (Late st Contact Info) Description 02/02/2024 3:00 PM EST Office Visit Radiation Oncology at [address] [phone] Ag Cruz MD [facility] [place] [address] Scheduled Referrals Name Type Priority Associated Diagnoses Orde r Schedule Referral to Speech Therapy Outpatient Referral Routine Larynx cancer H/O laryngectomy Ordered: 04/17/2022 documented as of this encounter Visit Diagnoses Diagnosis Larynx cancer Malignant neoplasm of larynx, unspecified site H/O laryngectomy Other postprocedural status documented in this encounter Care Teams Food Production Associate Relationship Specialty Start Date End Date Weston Tobias PA [address] [place] [address] PCP - General Family Medicine 02/25/21 documented as of this encounter
--- OUTSIDE RECORDS SUMMARY | 2023-12-01 15:59 | XMS_ITS | Encounter Summary ---
[place] [address] Care Team Providers Care Real Estate Legal Assistant Name Role Phone Weston Tobias Primary Care Provider +1- [phone] Encounter Details Date Type Department Care Team (Latest Contact Info) Description 02/05/2022 9:50 AM EST Laboratory Appointment Lab [address] [place] [address] Larynx cancer Social History Tobacco Use Types Packs/Day Years [...] place to sleep or slept in a long term (including now)? Yes 04/07/2021 Sex and Gender Information Value Date Recorded Sex Assigned at Not on file Gender Identity Not on file Sexual Orientation Not on file documented as of this encounter Plan of Treatment Upcoming Encounters Date Type Department Care Team (Late st Contact Info) Description 02/02/2024 3:00 PM EST Office Visit Radiation Oncology at [address] [phone] Ag Cruz MD [facility] [place] [address] documented as of this encounter Procedures Procedure Name Priority Date/Time Associated Diagnosis Comments HC C-REACTIVE PROTEIN Routine 02/05/2022 10:02 AM EST Larynx cancer HEMOGRAM Routine 02/05/2022 10:02 AM EST Larynx cancer DIFFERENTIAL, AUTOMATED Routine 02/05/2022 10:02 AM EST Larynx cancer HC VENIPUNCTURE Routine 02/05/2022 10:02 AM EST Larynx cancer HC CBC,PLT & AUTO DIFF Routine 02/05/2022 10:02 AM EST Larynx cancer documented in this encounter Results * (ABNORMAL) Differential, Automated (02/05/2022 10:02 AM EST) Neutrophil % 68.1 % [facility] Neutrophil Absolute 5.36 1.70 - 6.10 x10(3)/mc L [facility] Lymph % 17.6 % [facility] Lymphocytes Abs 1.4 0.9 - 3.2 x10(3)/[facility] Monocyte % 8.6 % [facility] Monocyte Abs 0.7 0.3 - 0.9 x10(3)/[facility] Eos % 3.6 % [facility] Eosinophils Abs 0.3 0.0 - 0.4 x10(3)/[facility] Basophil % 1.0 % [facility] Baso Absolute 0.1 0.0 - 0.1 x10(3)/[facility] Immature Gran % 1.10 % [facility] Comment: Immature granulocytes(IG's)percentage and absolute count will include metamyelocytes, myelocytes, and promyelocytes. Blood smears from CBCs yielding IG's will be scanned manually for concordance. If this scan disagrees with the automated IG or if promyelocytes are noted, a manual differential will be performed. Immature Gran Absolute 0.09(H) 0.00 - 0.04 x10(3)/[facility] Blood 02/05/2022 10:0 2 AM EST 02/05/2022 10:22 AM EST Narrative Resulting Agency Comment Spec In Lab Stephy Bianchi MD HEMATOLOGY ORDERABLE S [facility] [place] [address] * Hemogram (02/05/2022 10:02 AM EST) White Blood Cell 7.9 4.0 - 9.5 x10(3)/[facility] LABORATORY Red Blood Cell 5.50 4.58 - 5.54 x10(6)/[facility] Hemoglobin 15.3 13.7 - 16.5 g/dL [facility] Hematocrit 45.9 40.5 - 48.5 % [facility] Mean Cell Volume 83.5 82.9 - 93.1 fL [facility] Mean Cell Hemoglobin 27.8 27.5 - 32.1 pg [facility] Mean Cell Hemoglobin Concentration 33.3 32.0 - 35.7 g/dL [facility] Platelet 210 145 - 357 x10(3)/[facility] RDW Standard Deviation 40.3 36.0 - 45.0 fL [facility] RDW coefficient of variation 13.2 11.4 - 13.8 % [facility] Mean Platelet Volume 9.5 7.6 - 12.9 fL [facility] NRBC% auto 0.0 % [facility] NRBC Absolute 0.000 0.000 - 0.000 x10(3)/[facility] Blood 02/05/2022 10:0 2 AM EST 02/05/2022 10:22 AM EST Narrative Resulting Agency Comment Spec In Lab Stephy Bianchi MD HEMATOLOGY ORDERABLE S Performing Organization Address [facility] Co de Phone Number [facility] [place] [address] * CRP, acute inflammation (02/05/2022 10:02 AM EST) C-Reactive Protein <3.0 <=4.9 mg/L [facility] Blood 02/05/2022 10:0 2 AM EST 02/05/2022 10:22 AM EST Narrative Resulting Agency Comment Spec In Lab Mat Casper MD CHEMISTRY ORDERABL ES Performing Organization Address [facility] Co de Phone Number [facility] [place] [address] * (ABNORMAL) Sedimentation rate (02/05/2022 10:02 AM EST) Sedimentation Rate Automated 61(H) 2 - 28 mm/hr [facility] Comment: Effective January 25, 2019 new capillary photometric technology has resulted in a change in reference ranges. It is recommended that each ESR result be reviewed with its own age appropriate reference range. Blood 02/05/2022 10:0 2 AM EST 02/05/2022 10:22 AM EST Narrative Resulting Agency Comment Spec In Lab Mat Casper MD HEMATOLOGY ORDERAB LES [facility] [place] [address] documented in this encounter Visit Diagnoses Diagnosis Larynx cancer Malignant neoplasm of larynx, unspecified site documented in this encounter Care Teams Real Estate Legal Assistant Relationship Specialty Start Date End Date Weston Tobias [address] [place] [address] PCP - General Family Medicine 02/25/21 documented as of this encounter
--- OUTSIDE RECORDS SUMMARY | 2023-12-01 15:59 | XMS_ITS | Encounter Summary ---
[place] [address] Care Team Providers Care Inventory Representative Name Role Phone Weston Tobias Primary Care Provider +1- [phone] Encounter Details Date Type Department Care Team (Late st Contact Info) Description 11/13/2021 Telephone [place] [address] Jeniffer Mckinley Social History Tobacco Use Types Packs/Day Years [...] place to sleep or slept in a assisted (including now)? Yes 04/07/2021 Sex and Gender Information Value Date Recorded Sex Assigned at Not on file Gender Identity Not on file Sexual Orientation Not on file documented as of this encounter Miscellaneous Notes * Telephone Encounter - Jeniffer Mckinley - 11/13/2021 4:28 PM EDT Called pt's daughter Milagros to schedule pt for 3 mon fuv OV with Dr. Casper. [facility] for her to call back. documented in this encounter Plan of Treatment Upcoming Encounters Date Type Department Care Team (Late st Contact Info) Description 02/02/2024 3:00 PM EST Office Visit Radiation Oncology at [address] [phone] Ag Cruz MD [facility] [place] [address] documented as of this encounter Visit Diagnoses Not on filedocumented in this encounter Care Teams Inventory Representative Relationship Specialty Start Date End Date Weston Tobias PA [address] [place] [address] PCP - General Family Medicine 02/25/21 documented as of this encounter
--- OUTSIDE RECORDS SUMMARY | 2023-12-01 15:59 | XMS_ITS | Encounter Summary ---
[place] [address] Care Team Providers Care Medical Dir Name Role Phone Weston Tobias Primary Care Provider +1- [phone] Encounter Details Date Type Department Care Team (Late st Contact Info) Description 01/23/2022 Telephone [place] [phone] Jeniffer Mckinley Social History Tobacco [...] * Telephone Encounter - Jeniffer Mckinley - 01/23/2022 9:15 AM EST Called pt's daughter to schedule apt for pt for next week with Mahesh Mckinney for recent stoma site infection per IB received. LVM asking her to call back. Helcyndie, ?Can you please arrange for FU for Mr. Pena next week with Mahesh? He is s/p total laryngectomy in April 2021 with recent stoma site infection. Thank you! ? Rhiannon documented in this encounter Plan of Treatment Upcoming Encounters Date Type Department Care Team (Late st Contact Info) Description 02/02/2024 3:00 PM EST Office Visit Radiation Oncology at [address] [phone] Ag Cruz MD [facility] [place] [address] documented as of this encounter Visit Diagnoses Not on filedocumented in this encounter Care Teams Medical Dir Relationship Specialty Start Date End Date Weston Tobias PA [address] [place] [address] PCP - General Family Medicine 02/25/21 documented as of this encounter
--- OUTSIDE RECORDS SUMMARY | 2023-12-01 15:59 | XMS_ITS | Encounter Summary ---
Author Organization [facility] Address [facility] [place] [address] Care Team Providers Care Avionics Manager Name Role Phone Weston Tobias Primary Care Provider +1- [phone] Encounter Details Date Type Department Care Team (Late st Contact Info) Description 10/30/2021 2:30 PM EDT Office Visit [place] [phone] Ag Cruz MD [facility] [place] [address] Squamous cell carcinoma of supraglottis Social History [...] place to sleep or slept in a residential (including now)? Yes 04/07/2021 Sex and Gender Information Value Date Recorded Sex Assigned at Not on file Gender Identity Not on file Sexual Orientation Not on file documented as of this encounter Last Filed Vital Signs Vital Sign Reading Time Taken Comments Blood Pressure 154/101 10/30/2021 2:11 PM EDT Stephen en x2 Pulse 100 10/30/2021 2:11 PM EDT Temperature 36.1 ??C (96.9 ??F) 10/30/2021 2:11 PM ED T Respiratory Rate - - Oxygen Saturation 98% 10/30/2021 2:11 PM EDT Inhaled Oxygen Concentration - - Weight - - Height - - Body Mass Index - - documented in this encounter Progress Notes * Ag Cruz MD - 10/30/2021 2:30 PM EDT Images from the original note were not included. [facility] Medicine Radiation Oncology Radiation Oncology Follow Up Visit Patient Identity: Patient name: Reggie Pena Sr. Date of : 1970 Chief complaint: Laryngeal cancer Referring: Weston Tobias PA [address] [place] [address] History: Oncologic History: DIAGNOSIS / TREATMENT OVERVIEW?? [...] disease within the chest. 2. Hepatic steatosis. Latest Reference Range & Units 10/30/21 12:15 TSH 0.27 - 4.20 mcIU/mL 8.49 (H) (H): Data is abnormally high Time from RT completion: ~ 3 months Interval History: he notes some erythema associated with his stoma, and continues to have some erosion and crusting, and was recently placed on Bactrim by his PCP. He was also noted to have elevated thyroglobulin, and was started on levothyroxine for his PCP. Currently, he has the following symptoms: Symptom Description Intervention Pain Left shoulder pain since surgery, but bilateral neck pain. s/p PT and doing home exercises. Acetaminophen 1000 mg BID Dysphagia Denies Xerostomia / Dysgeusia Mild dysgeusia, no xerostomia Neck Fibrosis / Lymphedema / Pain Significant fibrosis, moderate lymphedema Dental Edentulous Nutrition Issues / Weight Loss No issues Feeding Tube Not Present Skin Denies Otalgia / Hearing Changes No issues Smoking Status Not smoking Voice Changes Using TEP Other No Issues I have personally reviewed the imaging studies referenced above. Exam: Patient Vitals for the past 24 hrs: Temp Pulse BP SpO2 10/30/21 1411 36.1 ??C (96.9 ??F) 100 (!) 154/101 98 % Physical Exam Constitutional: Appearance: He is well-developed. HENT: Mouth/Throat: Comments: Visual inspection of OC and OP revealed no evidence of suspicious masses or lesions. Palpation revealed no suspicious masses and no induration along the posterior tongue. Moisture good. Eyes: Pupils: Pupils are equal, round, and reactive to light. Neck: Comments: Palpation reveals no adenopathy in cervical, SCLV, ICLV laurita basins. Moderate fibrosis bilateral neck. Stoma with area of erosion / granulation tissue inferiorly aspect, as well as mild erythema inferiorly around the stoma. Crusting evidence. No evidence of recurrent disease. Cardiovascular: Rate and Rhythm: Normal rate. Pulmonary: Effort: Pulmonary effort is normal. Breath sounds: Normal breath sounds. Skin: Findings: No erythema. Neurological: Mental Status: He is alert and oriented to person, place, and time. Cranial Nerves: No cranial nerve deficit. Psychiatric: Behavior: Behavior normal. Procedure: performed in ENT today Performance Status: KPS 70-80% ECOG 1 Restricted in physically strenuous activity but ambulatory and able to carry out work of a light or sedentary nature, e.g., light house work, office work Summary/Recommendations: Impression: 1. Disease Status: ROSEMARY clinically and by imaging We discussed that he is still at risk of recurrence and requires continued surveillance 2. Toxicity: ??? Bilateral fibrosis of neck, moderate. PT with mild improvement. Discussed botox with ENT but not interested ??? Dental Care: edentulous ??? Thyroid: on 50 mcg levothyroxine per PCP Plan: 1. Follow per HN grid. Thank you for allowing me to participate in the care of Reggie Pena Sr.. AG CRUZ MD New Orders: No orders of the defined types were placed in this encounter. ??? [facility] [place] ([facility]) [facility] ??? [employer] Commission on Cancer (ACS [employer]) Accredited Cancer Program ??? [employer] (A[employer]) Accredited Radiation Oncology Program documented in this encounter Plan of Treatment Upcoming Encounters Date Type Department Care Team (Late st Contact Info) Description 02/02/2024 3:00 PM EST Office Visit Radiation Oncology at [address] [phone] [facility] [place] [address] documented as of this encounter Visit Diagnoses Diagnosis Squamous cell carcinoma of supraglottis Malignant neoplasm of supraglottis documented in this encounter Care Teams Avionics Manager Relationship Specialty Start Date End Date Weston Tobias PA [address] [place] [address] PCP - General Family Medicine 02/25/21 documented as of this encounter
--- OUTSIDE RECORDS SUMMARY | 2023-12-01 15:59 | XMS_ITS | Encounter Summary ---
Author Organization Counts Include [facility] Address [facility] [place] [address] Care Team Providers Care Addiction Specialist Name Role Phone Weston Tobias Primary Care Provider +1- [phone] Encounter Details Date Type Department Care Team (Late st Contact Info) Description 01/22/2022 10:00 PM EST Ancillary Procedure Radiology Library at [facility] [place] [phone] Mat Casper MD [facility] [place] [address] Social History Tobacco Use Types Packs/Day Years [...] EST Office Visit Radiation Oncology at [address] [phone] Ag Cruz MD [facility] [place] [address] documented as of this encounter Procedures Procedure Name Priority Date/Time Associated Diagnosis Comments FILM LIBRARY - STORAGE ONLY CT NECK Routine 01/22/2022 9:55 PM EST documented in this encounter Results * Film Library- Storage Only CT Neck (01/22/2022 9:55 PM EST) Narrative LISA - 01/22/2022 9:55 PM EST This exam is auto-finalizing. It's purpose is for storage only. Mat Casper MD IMG FILM LIBRARY O RDERABLES [facility] [place] documented in this encounter Visit Diagnoses Not on filedocumented in this encounter Care Teams Addiction Specialist Relationship Specialty Start Date End Date Weston Tobias PA [address] [place] [address] PCP - General Family Medicine 02/25/21 documented as of this encounter
--- OUTSIDE RECORDS SUMMARY | 2023-12-01 15:59 | XMS_ITS | Encounter Summary ---
Author Organization [facility] [place] [address] Care Team Providers Care Dance Teacher Name Role Phone Weston Tobias Primary Care Provider +1- [phone] Encounter Details Date Type Department Care Team (Late st Contact Info) Description 04/02/2022 Ancillary Procedure Radiology Library at [facility] [place] [address] Weston Tobias PA [address] [place] [address] Social History Tobacco Use Types Packs/Day Years [...] EST Office Visit Radiation Oncology at [address] [phone] Ag Cruz MD [facility] DR RADIATION ONCOLOGY [place] [address] documented as of this encounter Procedures Procedure Name Priority Date/Time Associated Diagnosis Comments FILM LIBRARY STORAGE ONLY MR HEAD Routine 04/02/2022 12:00 AM EST documented in this encounter Results * Film Library- Storage Only MR Head (04/02/2022 12:00 AM EST) Narrative KATIE GONZALEZ - 04/28/2022 1:49 PM EDT This exam is auto-finalizing. It's purpose is for storage only. Weston MARRERO IMJack FILM LIBRARY O RDERABLES ADRIANA Munoz documented in this encounter Visit Diagnoses Not on filedocumented in this encounter Care Teams Dance Teacher Relationship Specialty Start Date End Date Weston Tobias PA [address] [place] [address] PCP - General Family Medicine 02/25/21 documented as of this encounter
--- OUTSIDE RECORDS SUMMARY | 2023-12-01 15:59 | XMS_ITS | Encounter Summary ---
[place] [address] Care Team Providers Care Color Separation Photographer Name Role Phone Weston Tobias Primary Care Provider +1- [phone] Reason for Visit * Speech Therapy (Routine) - Closed Specialty Diagnoses / Procedures Referred By Contdavid paz Referred To Contact Speech Therapy Diagnoses Larynx cancer H/O laryngectomy Mat Casper MD [facility] [place] [address] [facility] [place] [address] Referral ID Status Reason Start Date Expiration Date V isits Requested Visits Authorized [id number] Closed Evaluate and Treat 04/17/2022 04/17/2023 30 30 Encounter Details Date Type Department Care Team (Late st Contact Info) Description 03/18/2023 9:30 AM EST Office [place] [address] Mat Ball, DIRECTOR OF PATIENT SAFETY Aphonia Social History Tobacco Use Types Packs/Day [...] Notes * Initial Evaluation - Mat Ball, DIRECTOR OF PATIENT SAFETY - 03/18/2023 9:30 AM EST Department of Rehabilitation Medicine Speech Pathology Plan Of Care TEP Re-Evaluation/Placement Reggie Pena Sr. : 1970 03/18/2023 11:22 AM Total Evaluation Time: 45 min. Eval. Time Codes: 0 min. Evaluation Type: TEP Diagnosis/Diagnosis Code(s): R49.1 (Aphonia), R13.10 (Dysphagia Unspecified), Z98.89 (History of Laryngectomy) Referring Physician: Mat Casper MD Evaluation Procedures: Direct assessment/re-placement of TEP/stoma and Pt/Caregiver education and training Functional Limitations: Aphonia and dysphagia s/p total laryngectomy with need for alaryngeal communication. Medicare Certification Period: N/A KX Modifier used beginning date: N/A History: Pt. Is a 52 y.o. male with history of obesity, T2DM, HTN, Tobacco use, [id number] SCCa of the supraglottic larynx, recent CVA's ( no residual effects on language or cognition). S/P total laryngectomy and primary creations of TEP on 04/29/21. Initial TEP sizing and placement on 05/07/21. Pt now returns for reassessment of TEP. Last TEP change was on 04/21/22. PMH Past Medical History: Diagnosis Date Diabetes mellitus Obesity Panniculitis Throat cancer S: Pt. denies significant pain or distress at this time Pt reports leaking around TEP at this time. Pt's daughter present for discussion/support O: Reviewed record Pt was referred by Mat Casper MD (ENT) for assessment and re-placement of TEP Oral-Peripheral/Neck Examination 10mm 20Fr Ryan Garcia Classic TEP in place with loose fit Phonation is excellent. Leaking is note both through and around TEP when drinking water. Patent stoma. Oral structures and functions appear WNL/WFL Minimal tracheal secretions No palpable adenopathy TEP Placement Removed 10mm 20Fr Ryan garcia Clasic TEP without difficulty. Re-measured to 6mm on left and superior aspects, 8mm on right aspect of TEP tract. 8mm 20Fr Ryan garcia classic TEP placed. Unfortunately pt still exhibited leaking around TEP and some pistoning of prosthesis. Remvoved 8mm, 20Fr. Prosthesis. Placed 6mm, 20 Ryan Garcia classic with large tracheal and esophageal flange. Good phonation with finger occlusion No leakage noted through or around TEP at this time HME Pt not interested at this time Pt/Caregiver Education & Training Reviewed cleaning, use, and precautions of TEP at length with pt Reviewed HME Supplies Provided to Pt/Caregiver 6mm 20fr Ryan Garcia Classic TEP with large tracheal and esophageal flange. A: Pt tolerated TEP change well with good phonation and without leakage through or around at this time. Recommendations Flush TEP with saline at least 3x/day [place] TEP PRN Contact ENT/DIRECTOR OF PATIENT SAFETY with any ?'s or concerns re: TEP. Current Goals None. P: D/C from Speech Pathology service for now. Patient to f/u PRN in ENT Clinic Pt. is in agreement with plan of treatment Mat Ball MS, CCC-DIRECTOR OF PATIENT SAFETY Speech-Language Pathologist Rehabilitation Medicine Pager # [phone] documented in this encounter Plan of Treatment Upcoming Encounters Date Type Department Care Team (Late st Contact Info) Description 02/02/2024 3:00 PM EST Office Visit Radiation Oncology at [address] [phone] Ag Cruz MD [facility] [place] [address] documented as of this encounter Visit Diagnoses Diagnosis Aphonia documented in this encounter Care Teams Color Separation Photographer Relationship Specialty Start Date End Date Weston Tobias PA [address] [place] [address] PCP - General Family Medicine 02/25/21 documented as of this encounter
--- OUTSIDE RECORDS SUMMARY | 2023-12-01 15:59 | XMS_ITS | Encounter Summary ---
Author Organization [facility] Address [facility] [place] [address] Care Team Providers Care Nascar Driver Name Role Phone Weston Tobias Primary Care Provider +1- [phone] Encounter Details Date Type Department Care Team (Latest Contact Info) Description 05/06/2022 Travel Social History Tobacco Use Types Packs/Day [...] EST Office Visit Radiation Oncology at [address] [address] Ag Cruz MD [facility] [place] [address] documented as of this encounter Visit Diagnoses Not on filedocumented in this encounter Care Teams Nascar Driver Relationship Specialty Start Date End Date Weston Tobias PA [address] [place] [address] PCP - General Family Medicine 02/25/21 documented as of this encounter
--- OUTSIDE RECORDS SUMMARY | 2023-12-01 15:59 | XMS_ITS | Encounter Summary ---
[place] [address] Care Team Providers Care Skiver Hand Name Role Phone Weston Tobias Primary Care Provider +1- [phone] Reason for Visit * Reason Comments Follow-up Encounter Details Date Type Department Care Team (Late st Contact Info) Description 02/05/2022 9:00 AM EST Office [place] [phone] Mat Casper MD [facility] [place] [address] Larynx cancer Social History Tobacco Use Types [...] - Inhaled Oxygen Concentration - - Weight 172.8 kg (380 lb 14.4 oz) 02/05/2022 8:56 AM EST Height 185.4 cm (6' 1) 02/05/2022 8:56 AM EST Body Mass Index 50.25 02/05/2022 8:56 AM EST documented in this encounter Progress Notes * Stephy Bianchi MD - 02/05/2022 9:00 AM EST [facility] FOLLOW UP NOTE Reggie Luan Pena Sr. is a 51 y.o. male followed for: Laryngeal cancer Primary: Larynx Stage: [id number] Treatment: 04/29/2021 - Total laryngectomy, partial pharyngectomy, bilateral neck dissection Completed XRT 07/30/2021 At his last ENT visit on 01/26/22, he had reported pain a the stoma site. He was noted to have erythema but no significant breakdown or fluctuance. On CT there was evidence of fluid in retropharyngeal space which represented early abscess formation. He was started on IV and then oral antibiotics with close follow up. New issues since last visit: Patient reports pain referred to neck and bilateral ears with moderate stiffness. Denies respiratory concerns, Swallowing without concern. Cellulitis has improved, pain was worse during infection but that has improved with resolution of cellulitis. Patient has symptoms consistent with first bite syndrome--first bite is painful, then resolves PROBLEM LIST Patient Active Problem List Diagnosis Code ??? Panniculitis M79.3 ??? Diabetes mellitus type 2, uncontrolled (DM) [id number] ??? Morbid obesity E66.01 ??? Hypertension (HTN) [...] History Tobacco Use ??? Smoking status: Former Packs/day: 1.50 Years: 24.00 Pack years: 36.00 Types: Cigarettes Quit date: 04/2021 Years since quittin.8 ??? Smokeless tobacco: Never ??? Tobacco comments: Declines Tobacco cessasion referral at this time. Substance Use Topics ??? Alcohol use: No Alcohol/week: 0.0 standard drinks Comment: rare alcohol MEDICATIONS Current Outpatient Medications on File Prior to Visit Medication Sig Dispense Refill ??? levoFLOXacin (Levaquin) 750 mg Tablet TAKE 1 TABLET BY MOUTH ONCE DAILY FOR 5 DAYS ??? gabapentin (Neurontin) 300 mg Capsule Take 1 capsule by mouth 3 times daily. 90 capsule 12 ??? levothyroxine (Synthroid) 75 mcg Tablet ??? lisinopriL (Zestril) 20 mg Tablet Take 20 mg by mouth daily. ??? silver sulfADIAZINE (Silvadene) 1 % Cream Apply topically 2 times daily. Apply to open areas ofskin. (Patient not taking: Reported on 08/20/2021) 50 g 0 ??? pantothenic Ac-Min Oil-Pet,Hyd (Aquaphor) 41 % Ointment Apply topically. ??? docusate sodium (Colace) 100 mg Capsule Take 100 mg by mouth as needed for Constipation. ??? insulin glargine (Lantus;Semglee) Solution Inject 28 Units subcutaneously nightly. (Patient nottaking: Reported on 07/16/2021) 10 mL 12 ??? insulin aspart U-100 (NovoLOG) Solution Inject 5 Units subcutaneously 3 times daily (before meals). (Patient not taking: Reported on 07/16/2021) 10 mL 12 ??? acetaminophen (Tylenol) 325 mg Tablet Take 2 tablets by mouth every 6 hours as needed for Pain or Fever. 30 tablet 1 ??? metFORMIN (GLUCOPHAGE) 1,000 mg Tablet Take 1,000 mg by mouth nightly. Indications: type 2 diabetes mellitus ??? glipiZIDE (GLUCOTROL) 10 mg Tablet Take 10 mg by mouth 2 times daily (before meals). No current facility-administered medications on file prior to visit. ALLERGIES No Known Allergies ROS 8 point Review of Systems was normal except for pertinent positives and negatives included in the History of Present Illness. PHYSICAL EXAMINATION Physical Examination: VITALS - Height 185.4 cm (6' 1), weight (!) 172.8 kg (380 lb 14.4 oz). GENERAL - Well dressed and well nourished. - Breathing comfortably without stridor. - No acute distress. FACE - Full and symmetric facial movement. - No dysmorphic facial features. EYES - Periocular structures and conjunctiva healthy without lesions. - Pupils are equal, round, and reactive to light. - Extraocular movement is full and intact. - No evidence of nystagmus. MOUTH - Lips and gingiva pink, moist, without lesions. - Edentulous. - Tongue and floor of mouth soft without lesions or masses. - Hard palate without lesions. PHARYNX - Soft palate without lesions. - Uvula is midline. - Oropharynx symmetric. NECK - No significant lymphadenopathy. - Musculoskeletal type tenderness to palpation over the SCM and trapezius mascles - Laryngectomy stoma with some minor crusting at the meatus; along the 7 o'clock position adjacent to the stoma there is an area of some shallow crusting of ~1cm with interval improvement. - Thyroid gland without masses or asymmetry. - Trachea midline without deviation. NEURO - Cranial nerves II-XII grossly intact and symmetric. - Responds appropriately to questions. PSYCHE - Normal mood and affect. PROCEDURES Procedure: laryngectomy and trachea endoscopic assessment: Indications: Evaluation for mucosal lesion of the upper airway. The risks of the procedure were reviewed, and verbal consent was obtained. The flexible nasopharyngoscope was passed through the laryngectomy meatus and down several centimeters into the trachea.. The examination was recorded on the TelePack Unit and uploaded to the [employer] Activities Specialist. Patient tolerated the procedure well without any complications. Laryngectomy: Laryngectomy meatus with some minor crusting related to the TEP. Tracheal mucosa pink, without lesions or masses. No evidence of bleeding or infection. Neopharynx: no evidence of disease recurrence REVIEW OF IMAGES/STUDIES ASSESSMENT/RECOMMENDATIONS Reggie Pena Sr. is a 51 y.o. male with [id number] of the larynx s/p TL and adjuvant XRT. Patient has had several courses of superficial cellulitis around the stomal site. We discussed restarting antibiotics (Bactrim) with plans for follow up after extended course. If no improvement or recurrent infection, we would consider repeat CT scan, and possible referral to ID vs dermatology. If the patient presents again with cellulitis, we will need a culture. The patient expressed understanding of these points and agreement with the plan, and all questions that were asked were answered to the patient's satisfaction. Plan: > Bactrim 21d > Fu in 3 weeks after abx finished with Mahesh Mckinney > CRP, ESR, CBC today and in 3 weeks prior to visit > Consider repeat CT if no improvement > Patient should call if their symptoms worsen or fail to improve, if new concerning symptoms arise, or if they have any questions or concerns regarding their treatment. I appreciate the opportunity to be involved in Mr. Pena's care. Stephy Bianchi MD, PGY2 02/05/2022 9:37 AM Pager #[phone] * Mat Casper MD - 02/05/2022 9:00 AM EST [facility] Attending Note Patient was seen and examined with the above resident. I agree with the history, exam findings, andrecommendations. Summary Will try longer course of antibiotics, CRP, Sed Rate CBC, follow up in 4 weeks. Follow up in 4 weeks I appreciate the opportunity to be involved in Mr. Pena's care. MAT CASPER MD 02/05/2022 documented in this encounter Plan of Treatment Upcoming Encounters Date Type Department Care Team (Late st Contact Info) Description 02/02/2024 3:00 PM EST Office Visit Radiation Oncology at [address] [phone] Ag Cruz MD [facility] [place] [address] documented as of this encounter Results * (ABNORMAL) Sedimentation rate (02/05/2022 10:02 AM EST) Sedimentation Rate Automated 61(H) 2 - 28 mm/hr [facility] Comment: Effective January 25, 2019 new capillary photometric technology has resulted in a change in reference ranges. It is recommended that each ESR result be reviewed with its own age appropriate reference range. Blood 02/05/2022 10:0 2 AM EST 02/05/2022 10:22 AM EST Narrative Resulting Agency Comment Spec In Lab Mat Casper MD HEMATOLOGY ORDERAB LES Performing Organization Address [facility] Co de Phone Number [facility] [place] [address] * CRP, acute inflammation (02/05/2022 10:02 AM EST) C-Reactive Protein <3.0 <=4.9 mg/L [facility] Blood 02/05/2022 10:0 2 AM EST 02/05/2022 10:22 AM EST Narrative Resulting Agency Comment Spec In Lab Mat Casper MD CHEMISTRY ORDERABL ES Performing Organization Address [facility] [place] [address] documented in this encounter Visit Diagnoses Diagnosis Larynx cancer Malignant neoplasm of larynx, unspecified site documented in this encounter Care Teams Skiver Hand Relationship Specialty Start Date End Date Weston Tobias PA [address] [place] [address] PCP - General Family Medicine 02/25/21 documented as of this encounter
--- OUTSIDE RECORDS SUMMARY | 2023-12-01 15:59 | XMS_ITS | Encounter Summary ---
[facility] [place] [address] Care Team Providers Care Editing Clerk Name Role Phone Weston Tobias Primary Care Provider +1- [phone] Encounter Details Date Type Department Care Team (Latest Contact Info) Description 01/26/2022 Travel Social History Tobacco Use Types Packs/Day [...] PM EST Office Visit Radiation Oncology at [address] [address] Ag Cruz MD [facility] [place] [address] documented as of this encounter Visit Diagnoses Not on filedocumented in this encounter Care Teams Editing Clerk Relationship Specialty Start Date End Date Weston Tobias PA [address] [place] [address] PCP - General Family Medicine 02/25/21 documented as of this encounter
--- OUTSIDE RECORDS SUMMARY | 2023-12-01 15:59 | XMS_ITS | Encounter Summary ---
[place] [address] Care Team Providers Care Medical Assistant Ob Gyn Name Role Phone Weston Tobias Primary Care Provider +1- [phone] Encounter Details Date Type Department Care Team (Late st Contact Info) Description 06/30/2022 [place] [address] Zafar Pike MD [facility] [address] Social History Tobacco Use Types Packs/Day Years [...] encounter Miscellaneous Notes * Telephone Encounter - Lucia Singh - 07/06/2022 2:41 PM EDT Rescheduled * Telephone Encounter - Edith Muro - 06/30/2022 11:51 AM EDT Left message for pt to call back to reschedule bumped appointment with SKRell Guthrieed on 08/03 Please schedule for either 07/07 in the afternoon, 07/08 8am tech time, or SKMs next call week per fanny Visual changes documented in this encounter Plan of Treatment Upcoming Encounters Date Type Department Care Team (Late st Contact Info) Description 02/02/2024 3:00 PM EST Office Visit Radiation Oncology at [address] [phone] Ag Cruz MD [facility] [place] [address] documented as of this encounter Visit Diagnoses Not on filedocumented in this encounter Care Teams Medical Assistant Ob Gyn Relationship Specialty Start Date End Date Weston Tobias PA [address] [place] [address] PCP - General Family Medicine 02/25/21 documented as of this encounter
--- OUTSIDE RECORDS SUMMARY | 2023-12-01 15:59 | XMS_ITS | Encounter Summary ---
Author Organization [facility] [place] [address] Care Team Providers Care Real Estate Officer Name Role Phone Weston Tobias Primary Care Provider +1- [phone] Encounter Details Date Type Department Care Team (Late st Contact Info) Description 01/26/2022 10:30 AM EST Office [place] [id number] Vasquez Mckniney PA [facility] [place] [address] Larynx cancer; H/O laryngectomy Social History Tobacco [...] place to sleep or slept in a halfway (including now)? Yes 04/07/2021 Sex and Gender [...] - Inhaled Oxygen Concentration - - Weight 113.4 kg (250 lb) 01/26/2022 10:15 AM EST Height 185.4 cm (6' 1) 01/26/2022 10:15 AM EST Body Mass Index 32.98 01/26/2022 10:15 AM EST documented in this encounter Progress Notes * Vasquez Mckinney PA - 01/26/2022 10:30 AM EST [facility] [place] FOLLOW UP NOTE Reggie Luan Pena Sr. is a 51 y.o. male followed for: Laryngeal cancer Primary: Larynx Stage: [id number] Treatment: 04/29/2021 - Total laryngectomy, partial pharyngectomy, bilateral neck dissection Completed XRT 07/30/2021 At his last ENT visit on 12/11/21, he was doing well. He did note some bilateral neck pain along the SCM, some first bite syndrome, and ongoing tiredness. His prior TSH was high, and his PCP and his synthroid had been increased. He was taking Gabapentin for his pain. There was no evidence of recurrence on clinical exam, and he was recommended to follow up with his PCP about his synthroid level, and increasing his Gabapentin. More recently, on 01/22/22, the patient was seen at an outside ED with symptoms of pain at the stomasite radiating to the neck and face; with normal stable vital signs; no fevers, WBC, CMP; breathingon RA, chest xray normal; without headache, dizziness, difficulty moving his neck, mental status changes, and Covid negative. He was noted to have erythema at the stoma, but no skin break down, fluctuance, or purulence; no lymphadenopathy. There was some fluid in the retropharyngeal space on CT imaging, and that may represent early abscess formation. Given the clinical picture, IV and then oral antibiotics were recommended, with close follow up to ensure resolution of symptoms; and precautions were given for any worsening neck movement, fevers, lethargy, difficulty with swallowing, or increasing pain. He returns today for reassessment. New issues since last visit: Feeling better. Pain is minor now. Able to talk again--couldn't for a while due to the swelling. Was coughing up thick phlegm for a week. Feels this has almost resolved. No hemoptysis. No swelling currently. Eating well--everything he wants to eat. TEP is working out well. Had some blurry vision and right facial pain. Feels that the blurriness has gotten better since, and the facial pain has also improved. Did not have associated fevers, chills, night sweats. PROBLEM LIST Patient Active Problem List Diagnosis Code ??? Panniculitis M79.3 ??? Diabetes mellitus type 2, uncontrolled (DM) [id number] ??? Morbid obesity E66.01 ??? Hypertension (HTN) [...] Types: Cigarettes Quit date: 04/2021 Years since quittin.7 ??? Smokeless tobacco: Never ??? Tobacco comments: Declines Tobacco cessasion referral at this time. Substance Use Topics ??? Alcohol use: No Alcohol/week: 0.0 standard drinks Comment: rare alcohol MEDICATIONS Current Outpatient Medications on File Prior to Visit Medication Sig Dispense Refill ??? gabapentin (Neurontin) 300 mg Capsule Take 1 capsule by mouth 3 times daily. 90 capsule 12 ??? levothyroxine (Synthroid) 75 mcg Tablet ??? lisinopriL (Zestril) 20 mg Tablet Take 20 mg by mouth daily. ??? silver sulfADIAZINE (Silvadene) 1 % Cream Apply topically 2 times daily. Apply to open areas ofskin. (Patient not taking: No sig reported) 50 g 0 ??? pantothenic Ac-Min Oil-Pet,Hyd [...] No sig reported) 10 mL 12 ??? acetaminophen (Tylenol) 325 [...] symmetric. NECK - No significant lymphadenopathy. - Laryngectomy stoma with some minor crusting at the meatus; along the 7 o'clock position adjacent to the stoma there is an area of some shallow crusting of ~1cm. - Thyroid gland without masses or asymmetry. [...] the [employer] and uploaded to the [employer] Operator. Patient tolerated the procedure well without any complications. Laryngectomy: Laryngectomy meatus with some minor crusting related to the TEP. Tracheal mucosa pink, without lesions or masses. No evidence of bleeding or infection. REVIEW OF IMAGES/STUDIES ASSESSMENT/RECOMMENDATIONS Reggie Pena is a 51 y.o. male with the above-noted history and clinical exam findings. Recentinfection related to the laryngectomy stoma, that appears largely resolved, with no concerning findings at his stoma, trachea, or neck. Discussed his finishing his oral antibiotics. Discussed his calling the clinic if his symptoms worsen again prior to his upcoming monitoring appointment with Dr. Casper. He does continue to have bilateral neck pain, and the patient plans to keep the appointment with Dr. Casper to assess for possible botox injections. Discussed use of humidification as much as possible, and saline bullet use, to keep his secretions thin, especially as the impregnator and drier winter weather has arrived. Discussed his resolving left eye blurriness, and that if this was not completely resolved at the time of his upcoming visit, referral to ophthalmology could be considered. Discussedhis kingsley pires again with his PCP regarding his thyroid levels. - The patient expressed understanding of these points and agreement with the plan, and all questions that were asked were answered to the patient's satisfaction. Plan: > Return to clinic on 02/05/22, for monitoring. > Complete oral antibiotics course. > Follow up with PCP. > Patient should call if their symptoms worsen or fail to improve, if new concerning symptoms arise, or if they have any questions or concerns regarding their treatment. I appreciate the opportunity to be involved in Mr. Pena's care. Vasquez Mckinney PA-C [place], [place] [address] Office 01/26/2022 documented in this encounter Plan of Treatment Upcoming Encounters Date Type Department Care Team (Late st Contact Info) Description 02/02/2024 3:00 PM EST Office Visit Radiation Oncology at [address] [phone] Ag Cruz MD [facility] [place] [address] documented as of this encounter Visit Diagnoses Diagnosis Larynx cancer Malignant neoplasm of larynx, unspecified site H/O laryngectomy Other postprocedural status documented in this encounter Care Teams Real Estate Officer Relationship Specialty Start Date End Date Weston Tobias PA [address] [place] [address] PCP - General Family Medicine 02/25/21 documented as of this encounter
--- OUTSIDE RECORDS SUMMARY | 2023-12-01 15:59 | XMS_ITS | Encounter Summary ---
Author Organization [facility] Address [facility] [place] [address] Care Team Providers Care Shell Trim Operator Name Role Phone Weston Tobias Primary Care Provider +1- [phone] Encounter Details Date Type Department Care Team (Late st Contact Info) Description 11/06/2022 Telephone Radiation Oncology at [address] [phone] Edith Nicole Social History Tobacco Use Types Packs/Day Years [...] encounter Miscellaneous Notes * Telephone Encounter - Edith Saravia - 11/06/2022 3:47 PM EDT I called Reggie's daughter, Milagros, to let her know that he is due for follow up with Dr. Cruz. Milagros let me know that he is still inpatient at [facility] after suffering from a second stroke. She said they have had trouble getting him in with a rehab facility and the current plan is to move forward withphysical therapy while he is inpatient, then set up services at home when he is discharged sometimein November. Milagros said Reggie will need time to recover at home. When she feels he is in a spot to continue follow-up, she will give us a call. I did ask Milagros if Reggie had any concerns related to his cancer and she said that he didn't, but would be happy to know that we checked in today. Milagros will plan to reach out if Reggie has any concerns in the meantime. documented in this encounter Plan of Treatment Upcoming Encounters Date Type Department Care Team (Late st Contact Info) Description 02/02/2024 3:00 PM EST Office Visit Radiation Oncology at [address] [phone] Ag Cruz MD [facility] [place] [address] documented as of this encounter Visit Diagnoses Not on filedocumented in this encounter Care Teams Shell Trim Operator Relationship Specialty Start Date End Date Weston Tobias PA [address] [place] [address] PCP - General Family Medicine 02/25/21 documented as of this encounter
--- OUTSIDE RECORDS SUMMARY | 2023-12-01 15:59 | XMS_ITS | Encounter Summary ---
[place] [address] Care Team Providers Care School Supervisor Name Role Phone Weston Tobias Primary Care Provider +1- [phone] Reason for Visit * Reason Comments Follow-up Encounter Details Date Type Department Care Team (Late st Contact Info) Description 12/11/2021 1:20 PM EDT Office [place] [address] Mat Harvey MD [facility] [place] [address] Larynx cancer; Postoperative hypothyroidism; Neck pain; Acute pain of mouth Social History Tobacco Use Types Packs/Day Years [...] - - Weight 117.9 kg (260 lb) 12/11/2021 1:09 PM EDT Height 185.4 cm (6' 1) 12/11/2021 1:09 PM EDT Body Mass Index 34.3 12/11/2021 1:09 PM EDT documented in this encounter Progress Notes * Mat Harvey MD - 12/11/2021 1:20 PM EDT [facility] OT[facility]ECK [facility]OR [facility] FOLLOW UP NOTE Reggie Luan Pena Sr. is a 51 y.o. male followed for: Primary: Larynx Stage: [id number] Treatment: 04/29/2021 - Total laryngectomy, partial pharyngectomy, bilateral neck dissection Completed XRT 07/30/2021 New issues since last visit: Overall doing well. Still getting pain in his neck bilaterally along the SCM. He is also reporting first bite symptoms which he says began right after he started eating but keeps forgetting to mention during his visits. He is currently on gabapentin 600mg at night. Last visit his TSH was 8 and his PCP increased his synthroid to 75mcg. He reports that he is still tired though. PROBLEM LIST Patient Active Problem List Diagnosis Code ??? Panniculitis M79.3 ??? Diabetes mellitus type 2, uncontrolled (DM) [id number] ??? Morbid obesity E66.01 ??? Hypertension (HTN) [...] Types: Cigarettes Quit date: 04/2021 Years since quittin.6 ??? Smokeless tobacco: Never Used ??? Tobacco comment: Declines Tobacco cessasion referral at this time. Substance Use Topics ??? Alcohol use: No Alcohol/week: 0.0 standard drinks Comment: rare alcohol MEDICATIONS Current Outpatient Medications on File Prior to Visit Medication Sig Dispense Refill ??? [DISCONTINUED] gabapentin (Neurontin) 300 mg Capsule TAKE 1 CAPSULE BY MOUTH ONCE DAILY AT NIGHT ??? [DISCONTINUED] sulfamethoxazole-trimethoprim DS (Bactrim DS) 800-160 mg Tablet Take 1 tablet bymouth 2 times daily. ??? pantothenic Ac-Min Oil-Pet,Hyd (Aquaphor) 41 % Ointment Apply topically. ??? docusate sodium (Colace) 100 mg Capsule Take 100 mg by mouth as needed for Constipation. ??? acetaminophen (Tylenol) 325 mg Tablet Take 2 tablets by mouth every 6 hours as needed for Pain or Fever. 30 tablet 1 ??? [DISCONTINUED] lisinopriL (Zestril) 10 mg Tablet Take 1 tablet by mouth daily. 30 tablet 12 ??? metFORMIN (GLUCOPHAGE) 1,000 mg Tablet Take 1,000 mg by mouth nightly. Indications: type 2 diabetes mellitus ??? glipiZIDE (GLUCOTROL) 10 mg Tablet Take 10 mg by mouth 2 times daily (before meals). ??? levothyroxine (Synthroid) 75 mcg Tablet ??? [...] taking: No sig reported) 10 mL 12 No current facility-administered medications on file prior to visit. ALLERGIES No Known Allergies ROS Pertinent positive findings discussed above. No other findings on review of constitutional visual, cardiovascular, respiratory, gastrointestinal, genitourinary, musculoskeletal, dermatologic, neurological, psychiatric, endocrine, hematologic or immunologic systems. PHYSICAL EXAMINATION Wt Readings from Last 3 Encounters: 12/11/21 117.9 kg (260 lb) 10/30/21 117.9 kg (260 lb) 10/01/21 (!) 165.2 kg (364 lb 3.2 oz) General: Well developed, no distress Head/face: Normocephalic, atraumatic Oral cavity: Normal exam of the lips, edentulous, floor of mouth, tongue. Normal oral mucosa. Normal palate. Oropharynx: Normal soft palate, tonsils, lateral pharyngeal wall, posterior pharynx. Neck: S/p bilateral neck dissection. Pain along the SCM bilaterally. Stoma is patent and TEP is intact Noadenopathy. Resp: Excellent TEP speech, normal respirations. Skin: Normal skin survey of the head and neck. MSK: No trismus, normal neck range of motion Neuro: AxOx3; CN II-XII is grossly intact Psych: Normal mood and affect. Responds appropriately to questions. PROCEDURES None REVIEW OF IMAGES None ASSESSMENT/RECOMMENDATIONS RO[place] clinically First bite syndrome Increase neurontin starting with BID and then advance to TID. Script called in. May need to go up on synthroid dose. Follow up with PCP on this Follow up in January. He will let me know if neck pain persists on the increased dose of neurontin - if so, may set up botox injection. He would like to hold off for now. I appreciate the opportunity to be involved in Mr. Pena's care. MAT HARVEY MD 12/11/2021 documented in this encounter Plan of Treatment Upcoming Encounters Date Type Department Care Team (Late st Contact Info) Description 02/02/2024 3:00 PM EST Office Visit Radiation Oncology at [address] [phone] Ag Cruz MD [facility] [place] [address] documented as of this encounter Visit Diagnoses Diagnosis Larynx cancer Malignant neoplasm of larynx, unspecified site Postoperative hypothyroidism Postsurgical hypothyroidism Neck pain Cervicalgia Acute pain of mouth Other and unspecified diseases of the oral soft tissues documented in this encounter Care Teams School Supervisor Relationship Specialty Start Date End Date Weston Tobias PA [address] [place] [address] PCP - General Family Medicine 02/25/21 documented as of this encounter
--- OUTSIDE RECORDS SUMMARY | 2023-12-01 15:59 | XMS_ITS | Encounter Summary ---
[place] [address] Care Team Providers Care Maintainability Engineer Name Role Phone Weston Tobias Primary Care Provider +1- [phone] Reason for Referral * Physical Therapy (Routine) - Authorized Specialty Diagnoses / Procedures Referred By Jose A paz Referred To Contact Physical Therapy Diagnoses Squamous cell carcinoma of supraglottis Ag Cruz MD [facility] [place] [address] [address] Referral ID Status Reason Start Date Expiration Date Visits Requested Visits Authorized [id number] Authorized Evaluate and Treat 06/09/2023 12/06/2023 12 12 * Diagnostic Test (Routine) - Closed Specialty Diagnoses / Procedures Referred By Jose A paz Referred To Contact Radiology Diagnoses Squamous cell carcinoma of supraglottis Procedures CT Neck Soft Tissue w Contrast (Generic) Ag Cruz MD [facility] [place] [address] [facility] [place] [address] Referral ID Status Reason Start Date Expiration Date V isits Requested Visits Authorized [id number] Closed Specialty Service Requested 06/09/2023 12/08/2024 1 1 * Diagnostic Test (Routine) - Closed Specialty Diagnoses / Procedures Referred By Contac t Referred To Contact Radiology Diagnoses Squamous cell carcinoma of supraglottis Procedures CT Chest w Contrast Ag Cruz MD [facility] [place] [address] [facility] [place] [address] Referral ID Status Reason Start Date Expiration Date V isits Requested Visits Authorized [id number] Closed Specialty Service Requested 06/09/2023 12/08/2024 1 1 Encounter Details Date Type Department Care Team (Late st Contact Info) Description 06/09/2023 11:00 AM EDT Office Visit Radiation Oncology at [address] [address] Ag Cruz MD [facility] [place] [address] Squamous cell carcinoma of supraglottis Social History [...] EDT Inhaled Oxygen Concentration - - Weight 158.3 kg (349 lb) 06/09/2023 11:16 AM EDT with shoes Height - - Body Mass Index 47.33 03/09/2022 11:15 AM EST documented in this encounter Progress Notes * Ag Cruz MD - 06/09/2023 11:00 AM EDT Images from the original note were not included. [facility] Center Medicine Radiation Oncology Radiation Oncology Follow Up Visit Patient Identity: Patient name: Reggie Pena Sr. Date of : 1970 Chief complaint: Laryngeal cancer Referring: Weston Tobias PA [address] [place] [address] History: Oncologic History: DIAGNOSIS / TREATMENT OVERVIEW Reggie Pena Sr. is a 51 y.o. 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 Adjuvant radiotherapy TREATMENT DETAILS Treatment Intent Curative Site Treated Post-operative bed, at risk laurita basins Technique VMAT, SIB Adaptive Plan Required No Concurrent Chemo No Clinical Trial No TECHNICAL DETAILS Total Dose: 60 Gy @ 2 Gy/fxn, 54 Gy @ 1.8 Gy/fxn PLAN IMAGES Post-Treatment Course: CT HN w/ contrast 10/30/21: 1. No evidence of local tumor recurrence. 2. No cervical lymphadenopathy. 3. No evidence of regional distant metastases. CT Chest w/ contrast 10/30/21: 1. No evidence of metastatic disease within the chest. 2. Hepatic steatosis. He experienced a series of strokes, 1st on 09/11 (left sided hemiparesis with right acute infarctionnoted on CT imaging), 2nd on 09/21 with left thalamic stroke. CT angiogram revealed no concerning findings, nor did echocardiogram. He was started on aspirin and plavix, and was transitioned to ticagrelor after his second stroke. Time from RT completion: 1 year 10 months Interval History: he notes that he was recently diagnosed with a cellulitis at his tracheostomy site and was started on antibiotics by his PCP. Currently, he has the following symptoms: Symptom Description Intervention Pain Denies odynophagia, oral cavity pain. Dysphagia Denies Xerostomia / Dysgeusia Mild dysgeusia, mild xerostomia Neck Fibrosis / Lymphedema / Pain Significant fibrosis bilateral neck. Tracheostomy with discomfortassociated with cellulitis. Acetaminophen (2 / day). Gabapentin 300 mg TID. Dental Edentulous Nutrition Issues / Weight Loss No issues Feeding Tube Not Present Skin Denies Otalgia / Hearing Changes No issues Smoking Status Not smoking Voice Changes Using TEP. Speaking well. Other No Issues I have personally reviewed the imaging studies referenced above. Exam: No data found. Physical Exam Constitutional: Appearance: He is well-developed. [...] to severe fibrosis bilateral neck. Stoma with associated erythema c/w mild celluitis. An area of erosion on the right aspect of the stoma is evident c/w mild traumatic injury. Cardiovascular: Rate and Rhythm: Normal rate. Pulmonary: [...] concerning findings were noted. Performance Status: KPS 50-60% ECOG 2 Ambulatory and capable of all selfcare but unable to carry out any work activities; up and about more than 50% of waking hours Summary/Recommendations: Impression: Disease Status: ROSEMARY clinically. He does have an area of erosion on his tracheostomy, c/w trauma, but was instructed to call in between scheduled visits if this area does not heal or progresses in size. We discussed that he is still at risk of recurrence and requires continued surveillance 2. Toxicity: Bilateral fibrosis of neck, moderate. PT ongoing Continue gabapentin and tylenol prn. Complete antibiotics for cellulitis Dental Care: edentulous Thyroid: per PCP Plan: Follow per HN grid. Thank you for allowing me to participate in the care of Reggie Pena Sr.. AG CRUZ MD New Orders: No orders of the defined types were placed in this encounter. National [facility] [place] (NCI) [facility] [employer] Commission on Cancer (ACS Bakari) Accredited Cancer Program [employer] (ACR) Accredited Radiation Oncology Program documented in this encounter Plan of Treatment Upcoming Encounters Date Type Department Care Team (Late st Contact Info) Description 02/02/2024 3:00 PM EST Office Visit Radiation Oncology at [address] [address] Ag Cruz MD [facility] [place] [address] Scheduled Referrals Name Type Priority Associated Diagnoses Orde r Schedule Referral to Physical Therapy Outpatient Referral Routine Squamous cell carcinoma of supraglottis Ordered: 06/09/2023 documented as of this encounter Results * CT Neck Soft Tissue w Contrast (Generic) (08/24/2023 1:39 PM EDT) WORKSTATION ID [id number] RAD Anatomical Region Laterality Modality Neck, Head [...] who have questions please contact the health transitional care liaison that requested your imaging first. ? Narrative [...] neck, left of midline Procedure Note Torrey Gould, DO - 08/24/2023 EXAMINATION: CT NECK SOFT [...] patients who have questions please contactthe health transitional care liaison that requested your imaging first. Electronically signed by: Torrey Gould DO, [facility]([phone]), at 08/24/2023 4:57 PM Ag Cruz MD IMG CT ORDERABLES * CT Chest w Contrast (08/24/2023 1:39 PM EDT) WORKSTATION ID [id number] RAD Anatomical Region Laterality Modality Chest Computed [...] who have questions please contact the health transitional care liaison that requested your imaging first. ? Electronically signed by: Fredo Ayala MD, [facility] ([phone]), at 08/25/2023 9:36 AM Narrative 08/25/2023 9:36 AM EDT EXAMINATION: CT [...] patients who have questions please contactthe health transitional care liaison that requested your imaging first. Electronically signed by: Fredo Ayala MD, [facility]([phone]), at 08/25/2023 9:36 AM Ag Cruz MD IMG CT ORDERABLES * (ABNORMAL) Creatinine (08/24/2023 11:06 AM EDT) Creatinine 0.76(L) 0.80 - 1.50 mg/dL [facility] Est Glomerular Filtration Rate 109 >=60 mL/min/1. 73 m?? [facility] Comment: This patient's estimated GFR [...] In Lab Ag Cruz MD CHEMISTRY ORDERABLES [facility] [place] [address] documented in this encounter Visit Diagnoses Diagnosis Squamous cell carcinoma of supraglottis Malignant neoplasm of supraglottis Squamous cell carcinoma of supraglottis Malignant neoplasm of supraglottis documented in this encounter Care Teams Maintainability Engineer Relationship Specialty Start Date End Date Weston Tobias PA [address] [place] [address] PCP - General Family Medicine 02/25/21 documented as of this encounter
--- OUTSIDE RECORDS SUMMARY | 2023-12-01 15:59 | XMS_ITS | Encounter Summary ---
[place] [address] Care Team Providers Care Hairpiece Stylist Name Role Phone Weston Tobias Primary Care Provider +1- [phone] Encounter Details Date Type Department Care Team (Latest Contact Info) Description 10/30/2021 7:30 AM EDT Laboratory Appointment Lab [address] [place] [address] Squamous cell carcinoma of supraglottis; Larynx cancer Social History Tobacco Use Types [...] place to sleep or slept in a jail (including now)? Yes 04/07/2021 Sex and Gender Information Value Date Recorded Sex Assigned at Not on file Gender Identity Not on file Sexual Orientation Not on file documented as of this encounter Plan of Treatment Upcoming Encounters Date Type Department Care Team (Late st Contact Info) Description 02/02/2024 3:00 PM EST Office Visit Radiation Oncology at [address] [phone] Ag Cruz MD [facility] [place] [address] documented as of this encounter Procedures Procedure Name Priority Date/Time Associated Diagnosis Comments HC THYROID STIMULATING HORMONE, SERUM Routine 10/30/2021 12:15 PM EDT Larynx cancer HC VENIPUNCTURE Routine 10/30/2021 7:44 AM EDT Squamous cell carcinoma of supraglottis documented in this encounter Results * (ABNORMAL) TSH (10/30/2021 12:15 PM EDT) Thyroid Stimulating Hormone 8.49(H) 0.27 - 4.20 mcIU/mL [facility] Comment: Reference Interval (mcIU/mL): Females: ??First Trimester: 0.23-3.88 ??Second Trimester: 0.22-3.90 ??Third Trimester: 0.44-4.66 Blood 10/30/2021 12:1 5 PM EDT 10/30/2021 12:28 PM EDT Narrative Resulting Agency Comment Spec In Lab Mat Casper MD CHEMISTRY ORDERABL ES Performing Organization Address [facility] Co de Phone Number [facility] [place] [address] * Creatinine (10/30/2021 7:44 AM EDT) Creatinine 0.94 0.80 - 1.50 mg/dL [facility] Est Glomerular Filtration Rate 99 >=60 mL/min/1. 73 m?? [facility] Comment: This patient's estimated GFR [...] and symptoms in addition to eGFR. Blood 10/30/2021 7:44 AM EDT 10/30/2021 7:49 AM EDT Narrative Resulting Agency Comment Spec In Lab Ag Cruz MD CHEMISTRY ORDERABLES Performing Organization Address [facility]/ZIP Co de Phone Number [facility] [place] [address] documented in this encounter Visit Diagnoses Diagnosis Squamous cell carcinoma of supraglottis Malignant neoplasm of supraglottis Larynx cancer Malignant neoplasm of larynx, unspecified site documented in this encounter Care Teams Hairpiece Stylist Relationship Specialty Start Date End Date Weston Tobias PA [address] [place] [address] PCP - General Family Medicine 02/25/21 documented as of this encounter
--- OUTSIDE RECORDS SUMMARY | 2023-12-01 15:59 | XMS_ITS | Encounter Summary ---
Author Organization [facility] Address [facility] [address] [place] [address] Care Team Providers Care Driver Guide Name Role Phone Weston Tobias Primary Care Provider +1- [phone] Encounter Details Date Type Department Care Team (Late st Contact Info) Description 02/10/2023 3:00 PM EST Office Visit Radiation Oncology at [address] [address] Ag Cruz MD [facility] [place] [address] Squamous cell carcinoma of supraglottis Social History [...] Sign Reading Time Taken Comments Blood Pressure 144/94 02/10/2023 3:11 PM EST Pulse 102 02/10/2023 3:11 PM EST Temperature 37 ??C (98.6 ??F) 02/10/2023 3:1 1 PM EST Respiratory Rate 18 02/10/2023 3:11 PM EST Oxygen Saturation 100% 02/10/2023 3:1 1 PM EST Inhaled Oxygen Concentration - - Weight 156.6 kg (345 lb 3.2 oz) 023 3:11 PM EST with shoes Height - - Body Mass Index 46.82 03/09/2022 11:15 AM EST documented in this encounter Progress Notes * Ag Cruz MD - 02/10/2023 3:00 PM EST Images from the original note were not included. [facility] Medicine Radiation Oncology Radiation Oncology Follow Up Visit Patient Identity: Patient name: Reggie Pena Sr. Date of : 1970 Chief complaint: Laryngeal cancer Referring: Weston Tobias PA [address] [place] [address] History: Oncologic History: DIAGNOSIS / TREATMENT OVERVIEW [...] 2. Hepatic steatosis. Time from RT completion: 1 year 6 months Interval History: he experienced a series of strokes, 1st on 09/11 (left sided hemiparesis with right acute infarction noted on CT imaging), 2nd on 09/21 with left thalamic stroke. CT angiogram revealedno concerning findings, nor did echocardiogram. He was started on aspirin and plavix, and was transitioned to ticagrelor after his second stroke. Currently, he has the following symptoms: Symptom Description Intervention Pain 1st bite syndrome, resolves quickly. Dysphagia Denies Xerostomia / Dysgeusia Mild dysgeusia, mild xerostomia Neck Fibrosis / Lymphedema / Pain Significant fibrosis bilateral neck, he notes increasing discomfort / pain associated with his neck. Acetaminophen (3 / day). Gabapentin 300 mg TID. Dental Edentulous Nutrition Issues / Weight Loss No issues Feeding Tube Not Present Skin Denies Otalgia / Hearing Changes No issues Smoking Status Not smoking Voice Changes Using TEP. Speaking well. Other No Issues I have personally reviewed the imaging studies referenced above. Exam: Patient Vitals for the past 24 hrs: Temp Pulse Resp BP SpO2 02/10/23 1511 37 ??C (98.6 ??F) (!) 102 18 (!) 144/94 100 % Physical Exam Constitutional: Appearance: He is [...] Moderate to severe fibrosis bilateral neck. Stoma c/d/I. No evidence of recurrent disease. Cardiovascular: Rate [...] waking hours Summary/Recommendations: Impression: Disease Status: ROSEMARY clinically We discussed that he is still at risk of recurrence and requires continued surveillance 2. Toxicity: Bilateral fibrosis of neck, moderate. PT ongoing Continue gabapentin and tylenol prn Dental Care: edentulous Thyroid: per PCP Plan: Follow per HN grid. Thank you for allowing me to participate in the care of Reggie Luan Pena Sr.. AG CRUZ MD New Orders: No orders of the defined types were placed in this encounter. National Cancer [place] (NCI) Comprehensive Cancer [facility] [employer] Commission on Cancer (ACS Bakari) Accredited Cancer Program [employer] (ACR) Accredited Radiation Oncology Program documented in this encounter Plan of Treatment Upcoming Encounters Date Type Department Care Team (Late st Contact Info) Description 02/02/2024 3:00 PM EST Office Visit Radiation Oncology at [address] [address] Ag Cruz MD [facility] [place] [address] documented as of this encounter Visit Diagnoses Diagnosis Squamous cell carcinoma of supraglottis Malignant neoplasm of supraglottis documented in this encounter Care Teams Driver Guide Relationship Specialty Start Date End Date Weston Tobias [address] [place] [address] PCP - General Family Medicine 02/25/21 documented as of this encounter
--- OUTSIDE RECORDS SUMMARY | 2023-12-01 15:59 | XMS_ITS | Encounter Summary ---
Author Organization [facility] [place] [address] Care Team Providers Care Material Reprocessing Associate Name Role Phone Weston Tobias Primary Care Provider +1- [phone] Reason for Visit * Reason Comments Blurred Vision * Consultation (Routine) - Closed Specialty Diagnoses / Procedures Referred By Jose A paz Referred To Contact Ophthalmology Diagnoses Visual complaint Weston Tobias PA [address] [place] [address] Zafar Pike MD [facility] [place] [address] Referral ID Status Reason Start Date Expiration Date V isits Requested Visits Authorized [id number] Closed Consult, Test & Treat PCP Updated and/or Approved 04/08/2022 04/08/2023 12 12 Encounter Details Date Type Department Care Team (Late st Contact Info) Description 07/09/2022 8:00 AM EDT Office [place] [address] Zafar Pike MD [facility] [place] [address] Diabetic eye exam Social History Tobacco Use Types Packs/Day Years [...] as of this encounter Progress Notes * Zafar Pike MD - 07/09/2022 8:00 AM EDT Reggie Roland Jean Sidhu is a 52 y.o. male referred by Weston Tobias for evaluation in setting of diabetes. Patient reports fluctuating vision. On examination today, Reggie Pena . exhibited normal 20/20 visual function in the right and 20/25 in the left, full color vision, with no evidence of a relative afferent pupillary defect that would suggest an underlying optic nerve dysfunction. The intraocular pressures were normal in each eye.Static visual holt deferred. Sensorimotor examination revealed full extraocular movements in eacheye. Reggie Pena Sr. was orthophoric in all directions of gaze. Dilated eye examination revealed normal anterior segment structures. The optic nerves are healthy and pink. The maculae and peripheral retina was normal in each eye. The OCT revealed normal RNFL of both optic nerves 113 in the right and 111 in the left. 1) Nuclear sclerotic cataracts, bilaterally - Not visually significant at this time - Continued observation - Discussed repeat assessment if he notes worsening glare symptoms or reduced vision - Also discussed that fluctuating glucose levels can cause transient lenticular shifts contributingto blurry vision - reassess in 1 year RTC 1 year CEE, general clinic Zafar Pike MD documented in this encounter Plan of Treatment Upcoming Encounters Date Type Department Care Team (Late st Contact Info) Description 02/02/2024 3:00 PM EST Office Visit Radiation Oncology at [address] [address] Ag Cruz MD [facility] [place] [address] documented as of this encounter Procedures Procedure Name Priority Date/Time Associated Diagnosis Comments SENSORIMOTOR EXAM Routine 07/14/2022 10: 08 AM EDT Diabetic eye exam OCT OPTIC NERVE - OU - BOTH EYES Routine 07/14/2022 10:07 AM EDT Diabetic eye exam FUNDUS PHOTOS - OU- BOTH EYES Routine 07/14/2022 10:07 AM EDT Diabetic eye exam documented in this encounter Results * Sensorimotor Exam [Pr Special Eye Exam] - OU - Both Eyes (07/14/2022 10:08 AM EDT) Anatomical Region Laterality Modality Other Narrative 07/14/2022 10:08 AM EDT Orthotropic in all directions of gaze at distance. Orthotropic at near. Zafar Pike MD OPHTHALMOLOGY [facility] [facility] ORDERABLES * Oct Optic Nerve - OU - Both Eyes (07/14/2022 10:07 AM EDT) Anatomical Region Laterality Modality Other Narrative 07/14/2022 10:07 AM EDT Right Eye Quality was good. Findings include normal observations. Temporal thickness was normal. Superior thickness was normal. Nasal thickness was normal. Inferior thickness was normal. Left Eye Quality was good. Findings include normal observations. Temporal thickness was normal. Superior thickness was normal. Nasal thickness was normal. Inferior thickness was normal. Notes [place] [facility] OCT OD: ??Average RNFL: 113, classification = wnl OS: ??Average RNFL: 111, classification = wnl Implication: No thinning or swelling OU. Zafar Pike MD OPHTHALMOLOGY [employer] ORDERABLES * Fundus Photos - OU - Both Eyes (07/14/2022 10:07 AM EDT) Anatomical Region Laterality Modality Other Narrative 07/14/2022 10:07 AM EDT Right Eye Disc findings include normal observations. Vessel findings include normal observations. Periphery findings include normal observations. Left Eye Disc findings include normal observations. Vessel findings include normal observations. Periphery findings include normal observations. Notes Normal discs Zafar Pike MD OPHTHALMOLOGY [employer] ORDERABLES documented in this encounter Visit Diagnoses Diagnosis Diabetic eye exam Examination of eyes and vision documented in this encounter Care Teams Material Reprocessing Associate Relationship Specialty Start Date End Date Weston Tobias PA [address] [place] [address] PCP - General Family Medicine 02/25/21 documented as of this encounter
--- OUTSIDE RECORDS SUMMARY | 2023-12-01 15:59 | XMS_ITS | Encounter Summary ---
Author Organization [facility] Address [facility] [place] [address] Care Team Providers Care Obstetrics Gyn Physician Name Role Phone Weston Tobias Primary Care Provider +1- [phone] Encounter Details Date Type Department Care Team (Latest Contact Info) Description 12/11/2021 Travel Social History Tobacco Use Types Packs/Day [...] PM EST Office Visit Radiation Oncology at [address] [phone] Ag Cruz MD [facility] [place] [address] documented as of this encounter Visit Diagnoses Not on filedocumented in this encounter Care Teams Obstetrics Gyn Physician Relationship Specialty Start Date End Date Weston Tobias PA [address] [place] [address] PCP - General Family Medicine 02/25/21 documented as of this encounter
--- OUTSIDE RECORDS SUMMARY | 2023-12-01 15:59 | XMS_ITS | Encounter Summary ---
Author Organization [facility] Address [facility] [place] [address] Care Team Providers Care Garden Implement Mechanic Name Role Phone Weston Tobias Primary Care Provider +1- [phone] Encounter Details Date Type Department Care Team (Latest Contact Info) Description 02/10/2023 Travel Social History Tobacco Use Types Packs/Day [...] EST Office Visit Radiation Oncology at [address] [address] Ag Cruz MD [facility] [address] [place] [address] documented as of this encounter Visit Diagnoses Not on filedocumented in this encounter Care Teams Garden Implement Mechanic Relationship Specialty Start Date End Date Weston Tobias PA [address] [place] [address] PCP - General Family Medicine 02/25/21 documented as of this encounter
--- OUTSIDE RECORDS SUMMARY | 2023-12-01 15:59 | XMS_ITS | Encounter Summary ---
[place] [address] Care Team Providers Care Operational Test Mechanic Name Role Phone Weston Tobias Primary Care Provider +1- [phone] Reason for Visit * Reason Comments Follow-up Encounter Details Date Type Department Care Team (Late st Contact Info) Description 03/09/2022 11:00 AM EST Office Visit [place] [address] Vasquez Mckinney PA [facility] [place] [address] Larynx cancer; Neck pain Social History Tobacco Use Types Packs/Day Years [...] - Inhaled Oxygen Concentration - - Weight 175.5 kg (387 lb) 03/09/2022 11:15 AM EST Height 182.9 cm (6') 03/09/2022 11:15 AM EST Body Mass Index 52.49 03/09/2022 11:15 AM EST documented in this encounter Progress Notes * Vasquez Mckinney PA - 03/09/2022 11:00 AM EST [facility] OTOLARYNGOLOGY FOLLOW UP NOTE Reggie Pena Sr. is a 51 y.o. male followed for: Laryngeal cancer ?? Primary: ?? Larynx Stage: ??[id number] Treatment: 04/29/2021 - Total laryngectomy, partial pharyngectomy, bilateral neck dissection Completed XRT 07/30/2021 ?? At his last ENT visit on 02/05/22, he was noting pain referred to the neck and bilateral ears with moderate stiffness. His cellulitis was improved, and the neck pain was overall improved with that. He was noting first bite syndrome symptoms. He had no respiratory or swallowing concerns. His laryngectomy stoma was noted to have some crusting. He was recommended to restart antibiotics for his superficial cellulitis. New issues since last visit: Pain has been stable, not worsening or getting better. Takes tylenol for the pain. The infection did go away with the antibiotics. Breathing is fine. Swallowing well, eating whatever I want. No hemoptysis. No new changes to his health. No recent fevers, chills, night sweats. Had blood work down in [facility]. PROBLEM LIST Patient Active Problem List Diagnosis Code ??? Panniculitis M79.3 ??? Diabetes mellitus type 2, uncontrolled (DM) [id number] ??? Morbid obesity E66.01 ??? Hypertension (HTN) [...] to Visit Medication Sig Dispense Refill ??? sulfamethoxazole-trimethoprim DS (Bactrim DS) 800-160 mg Tablet Take 1 tablet by mouth 2 times daily. 42 tablet 0 ??? levoFLOXacin (Levaquin) 750 mg Tablet TAKE [...] No significant lymphadenopathy. - Laryngectomy stoma with TEP in place, with some minor associated crusting along the superior aspect. - Thyroid gland without masses or asymmetry. - Trachea midline without deviation. NEURO - Cranial nerves II-XII grossly intact and symmetric. - Responds appropriately to questions. PSYCHE - Normal mood and affect. PROCEDURES REVIEW OF IMAGES/STUDIES ASSESSMENT/RECOMMENDATIONS - Still noting ongoing pain at the base of his neck, radiating up his neck anteriorly, bilaterally.No evidence of cellulitis currently. Discussed obtaining a CT neck to rule out recurrence, given his ongoing neck pain. Attempt made to have this performed here, today,; but there was no availability. Will send order to [facility] to have it performed there. Discussed obtaining a copy of his blood work,performed at an outside facility. Discussed that I would reach out to him when the CT neck results are in - The patient expressed understanding of these points and agreement with the plan, and all questions that were asked were answered to the patient's satisfaction. Plan: > CT neck soft tissues w contrast. > Will obtain CBC, CRP, ESR, results from outside facility as well. > Return to clinic in 1 month. > Patient should call if their symptoms worsen, if new concerning symptoms arise, or if they have any questions or concerns regarding their treatment. I appreciate the opportunity to be involved in Mr. Pena's care. Vasquez Mckinney PA-C [place], [place] [address] Office 03/09/2022 documented in this encounter Plan of Treatment Upcoming Encounters Date Type Department Care Team (Late st Contact Info) Description 02/02/2024 3:00 PM EST Office Visit Radiation Oncology at [address] [phone] Ag Cruz MD [facility] [place] [address] documented as of this encounter Visit Diagnoses Diagnosis Larynx cancer Malignant neoplasm of larynx, unspecified site Neck pain Cervicalgia documented in this encounter Care Teams Operational Test Mechanic Relationship Specialty Start Date End Date Weston Tobias PA [address] [place] [address] PCP - General Family Medicine 02/25/21 documented as of this encounter
--- OUTSIDE RECORDS SUMMARY | 2023-12-01 15:59 | XMS_ITS | Encounter Summary ---
Author Organization [facility] [place] [address] Care Team Providers Care Assistance Specialist Name Role Phone Weston Tobias Primary Care Provider +1- [phone] Encounter Details Date Type Department Care Team (Late st Contact Info) Description 04/02/2022 12:05 AM EST Ancillary Procedure Radiology Library at [facility] [place] [phone] Weston Tobias PA [address] [place], [place] [id number] Social History Tobacco Use Types Packs/Day Years [...] PM EST Office Visit Radiation Oncology at [address] [address] Ag Cruz MD [facility] [place] [address] documented as of this encounter Procedures Procedure Name Priority Date/Time Associated Diagnosis Comments FILM LIBRARY STORAGE ONLY MR HEAD Routine 04/02/2022 12:05 AM EST documented in this encounter Results * Film Library- Storage Only MR Head (04/02/2022 12:05 AM EST) Narrative KATIE GONZALEZ - 04/28/2022 1:50 PM EDT This exam is auto-finalizing. It's purpose is for storage only. Weston MARRERO IMJack FILM LIBRARY O RDERABLES [employer]ISA [place] [employer] documented in this encounter Visit Diagnoses Not on filedocumented in this encounter Care Teams Assistance Specialist Relationship Specialty Start Date End Date Weston Tobias PA [address] [place] [address] PCP - General Family Medicine 02/25/21 documented as of this encounter
--- OUTSIDE RECORDS SUMMARY | 2023-12-01 15:59 | XMS_ITS | Encounter Summary ---
Author Organization [facility] [place] [address] Care Team Providers Care Marketing Admin Name Role Phone Weston Tobias Primary Care Provider +1- [phone] Encounter Details Date Type Department Care Team (Late st Contact Info) Description 09/21/2022 2:40 PM EDT Telehealth [place] [phone] Telehealth, Neurology None Social History Tobacco Use Types Packs/Day Years [...] as of this encounter Miscellaneous Notes * Consult Note - Tanner Pandya MD - 09/21/2022 2:40 PM EDT [facility] TELENEUROLOGY EMERGENT TELENEUROLOGY CONSULT NOTE Date 09/21/22 Patient: Reggie Pena Sr. : 1970 Gender: male VISIT Requesting Location: [facility] Requesting Physician: Aba Consent obtained from: pt Diagnosis/Reason for Consult: AIS TLKW >24 hours (Note: not a tPA or intra- arterial thrombolysiscandidate) Intake time: 2:32 PM LKWT: yesterday, time unknown Arrival time to ED: 09/11 time unknown If inpt, date admitted: 09/11/22 PROVIDER History: This 52-year-old man with a recent right capsular infarction presents with right body numbness. He has a history of laryngeal cancer status post total laryngectomy, partial pharyngectomy, and bilateral neck dissection in April 2021 followed by radiation until July 2021. On September 11 he presented with left-sided weakness and was found to have a right capsular infarction on CT. He is overweig ht and was too large for an MRI. He has gotten slightly better since admission and has been stable.Blood pressure has been better controlled on 4 agents and he continues on clopidogrel and aspirin. This morning he noticed new right-sided tingling mostly involving the lower and upper extremities and the face slightly. He is otherwise stable. CT scan shows a new left lateral thalamic infarction. Bl ood pressure this morning was 140s when typically he has been in the 180s according to his nurse. 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 Vaping Use Vaping Use: Never used Substance and Sexual Activity Alcohol use: No Alcohol/week: 0.0 standard drinks Comment: rare alcohol Drug use: No Sexual activity: Not Currently Partners: Female Other Topics Concern Not on file Social History Narrative Not on file Social Determinants of Health Financial Resource Strain: Not on file Food Insecurity: Not on file Transportation Needs: Not on file Physical Activity: Not on file Housing Stability: Not on file Are you a current smoker or have you ever smoked: Quit in April 2021 Do you consume alcohol: No Vitals: 149/89 76 15 93% has a trach humidified air T 36 NIH STROKE SCALE 1A. Level of Consciousness 0 1B. LOC Questions 0 1C. LOC Commands 0 2. Best Gaze 0 3. Visual 0 4. Facial Palsy 1 5. Motor Arm Left Arm 3 Right Arm 0 6. Motor Leg Left Leg 3 Right Leg 0 7. Limb Ataxia 0 8. Sensory 1 9. Best Language 0 10. Dysarthria 1 11. Extinction and Inattention (formerly neglect) 0 He he covers his tracheostomy stoma and speaks well Radiology Imaging Imaging/Results: CT scan of the head from September 11 and today were compared and there is a new left lateral thalamic infarction and a right posterior limb capsular infarction not seen initially. CT angiogram of the head and neck was unremarkable on September 11. Labs: No abnormalities reported CLINICAL IMPRESSION/DIAGNOSIS: This patient presents with a new left lateral thalamic infarction likely due to penetrating artery disease. He likely has extensive small vessel disease given the 2 infarctions from this mechanism recently. It may be that his blood pressure is relatively lower than heis used to and this may have contributed to this infarction. Other unusual causes of repeated strokes from small vessel disease in a short period of time can be considered in the future but are unlikely including cerebral vasculitis, TTP, and infections including syphilis. RECOMMENDATIONS/PLAN: I would consider some medication changes including discontinuing clopidogrel and starting ticagrelor at 90 mg twice a day without a load. I would consider backing off on his blood pressure medication some for the next week. I would continue to maintain good hydration. I do notrecommend any other additional testing at this time. OBSERVATION/ADMISSION/TRANSFER: He is an inpatient documented in this encounter Plan of Treatment Upcoming Encounters Date Type Department Care Team (Late st Contact Info) Description 02/02/2024 3:00 PM EST Office Visit Radiation Oncology at [address] [address] Ag Cruz MD [facility] [place] [address] documented as of this encounter Visit Diagnoses Not on filedocumented in this encounter Care Teams Marketing Admin Relationship Specialty Start Date End Date Weston Tobias PA [address] [place] [address] PCP - General Family Medicine 02/25/21 documented as of this encounter
--- OUTSIDE RECORDS SUMMARY | 2023-12-01 15:59 | XMS_ITS | Encounter Summary ---
Author Organization [facility] Address [address] [facility] [place] [address] Care Team Providers Care Small Business Banking Officer Name Role Phone Weston Tobias Primary Care Provider +1- [phone] Encounter Details Date Type Department Care Team (Late st Contact Info) Description 02/10/2022 Telephone Radiation Oncology at [address] [phone] Maura Velez Social History Tobacco Use Types Packs/Day Years [...] encounter Miscellaneous Notes * Telephone Encounter - Maura Rodríguez - 02/10/2022 11:12 AM EST I called and left a message to cancel the appt on 02/11. Per Dr. Cruz he does not need to see him until April as he is seeing ENT regularly. documented in this encounter Plan of Treatment Upcoming Encounters Date Type Department Care Team (Late st Contact Info) Description 02/02/2024 3:00 PM EST Office Visit Radiation Oncology at [address] [phone] Ag Cruz MD [facility] [place] [address] documented as of this encounter Visit Diagnoses Not on filedocumented in this encounter Care Teams Small Business Banking Officer Relationship Specialty Start Date End Date Weston Tobias PA [address] [place] [address] PCP - General Family Medicine 02/25/21 documented as of this encounter
--- OUTSIDE RECORDS SUMMARY | 2023-12-01 15:59 | XMS_ITS | Encounter Summary ---
[place] [address] Care Team Providers Care Aircraft Loadmaster Superintendent Name Role Phone Weston Tobias Primary Care Provider +1- [phone] Encounter Details Date Type Department Care Team (Late st Contact Info) Description 04/27/2022 Telephone [place] [address] Sheila Mcgee Social History Tobacco Use Types Packs/Day Years [...] encounter Miscellaneous Notes * Telephone Encounter - Sheila Mcgee - 05/01/2022 7:35 PM EDT MRI/MRA images have been received. * Telephone Encounter - Sheila Mcgee - 04/27/2022 4:52 PM EDT We received Radiology reports from [facility] for Imaging done at [facility]. I sent a fax to [facility] requesting the images. From: Sheila Mcgee Sent: Wednesday, April 27, 2022 4:51 PM To: '[email or web address]' <[email or web address]> Subject: Request for images Patient: Reggie Pena Sr. : 1970 Aaron, The above patient had images done at your facility and are needed here for proper transition. Please forward the images & reports JAKY for our provider to review. Please send them electronically to [facility] to the attention of Dr. Casper. Specific images & reports we are looking for are: MR Orbit Facial Neck wo/w 04/02/22 MR Brain WO/W 04/02/22 Please push over images and fax over the reports to our image Library to [phone] If you do not have the capability to send electronically please mail disc & reports STANDARD NEXT DAY via FEDEX NUMBER redacted to the address below: [facility] Attn: [facility] [address] [place] [id number] documented in this encounter Plan of Treatment Upcoming Encounters Date Type Department Care Team (Late st Contact Info) Description 02/02/2024 3:00 PM EST Office Visit Radiation Oncology at [address] [phone] Ag Cruz MD [facility] [place] [address] documented as of this encounter Visit Diagnoses Not on filedocumented in this encounter Care Teams Aircraft Loadmaster Superintendent Relationship Specialty Start Date End Date Weston Tobias PA [address] [place] [address] PCP - General Family Medicine 02/25/21 documented as of this encounter
--- OUTSIDE RECORDS SUMMARY | 2023-12-01 15:59 | XMS_ITS | Encounter Summary ---
Author Organization [facility] Address [facility] [place] [address] Care Team Providers Care Lockstitch Collar Setter Name Role Phone Weston Tobias Primary Care Provider +1- [phone] Encounter Details Date Type Department Care Team (Latest Contact Info) Description 02/05/2022 Travel Social History Tobacco Use Types Packs/Day [...] EST Office Visit Radiation Oncology at [address] [address] Ag Cruz MD [facility] [place] [address] documented as of this encounter Visit Diagnoses Not on filedocumented in this encounter Care Teams Lockstitch Collar Setter Relationship Specialty Start Date End Date Weston Tobias PA [address] [place] [address] PCP - General Family Medicine 02/25/21 documented as of this encounter
--- OUTSIDE RECORDS SUMMARY | 2023-12-01 15:59 | XMS_ITS | Encounter Summary ---
Author Organization [facility] Address [facility] [place] [address] Care Team Providers Care Track Inspector Name Role Phone Weston Tobias Primary Care Provider +1- [phone] Encounter Details Date Type Department Care Team (Latest Contact Info) Description 07/09/2022 Travel Social History Tobacco Use Types Packs/Day [...] EST Office Visit Radiation Oncology at [address] [address] Ag Cruz MD [facility] [place] [address] documented as of this encounter Visit Diagnoses Not on filedocumented in this encounter Care Teams Track Inspector Relationship Specialty Start Date End Date Weston Tobias PA [address] [place] [address] PCP - General Family Medicine 02/25/21 documented as of this encounter
--- OUTSIDE RECORDS SUMMARY | 2023-12-01 15:59 | XMS_ITS | Encounter Summary ---
Author Organization [place] [address] Care Team Providers Care Manhole Stripper Name Role Phone Weston Tobias Primary Care Provider +1- [phone] Encounter Details Date Type Department Care Team (Late st Contact Info) Description 01/22/2022 [place] [phone] Rhiannon Ham MD [facility] [place] [address] Social History Tobacco Use Types Packs/Day Years [...] as of this encounter Progress Notes * Rhiannon Ham MD - 01/22/2022 10:12 PM EST Received call regarding Mr. Pena. 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 WBC WNL no shift, CMP WNL, chest xray WNL, breathing on RA, non labored. No headache, no dizziness,no mental status changes. VSS, afebrile. COVID negative. Patient has noted some coughing up of secretions in last few days, but nothing excessive and no fowl smelling secretions. On exam, stoma site appears erythematous but without skin breakdown, fluctuance or purulence. Able to move his head side to side. No lymphadenopathy. Patient states his stoma site has been infected before. CT scan obtained which notes some edema vs fluid collection in retropharyngeal space - which radiology states could be early abscess formation. Discussed that given his overall clinical picture the retropharyngeal fluid collection (more likelyto be edema as obvious fluid collection is not identified) could be an incidental finding in setting of infection and what sounds like URI (productive coughing over last few days). Discussed that would be worthwhile to give patient dose of IV abx while in ED but ok to send home with broad spectrum coverage (especially for skin luiz). That being said, reviewed warning signs for patient to seek immediate care for which could indicate progression of retropharyngeal fluid collection - difficulty moving neck, fever, lethargy, difficulty swallowing, increasing pain. In meantime will plan for closefollow up with us to ensure resolution of infection. Outside MD understanding and all questions answered. Rhiannon Ham MD ENT PGY-4 documented in this encounter Plan of Treatment Upcoming Encounters Date Type Department Care Team (Late st Contact Info) Description 02/02/2024 3:00 PM EST Office Visit Radiation Oncology at [address] [phone] Ag Cruz MD [facility] [place] [address] documented as of this encounter Visit Diagnoses Not on filedocumented in this encounter Care Teams Manhole Stripper Relationship Specialty Start Date End Date Weston Tobias PA [address] [place] [address] PCP - General Family Medicine 02/25/21 documented as of this encounter
--- OUTSIDE RECORDS SUMMARY | 2023-12-01 15:59 | XMS_ITS | Encounter Summary ---
[place] [address] Care Team Providers Care Front End Loader Operator Name Role Phone Weston Tobias Primary Care Provider +1- [phone] Encounter Details Date Type Department Care Team (Late st Contact Info) Description 04/27/2022 Telephone [place] [address] Sheila Mcgee Social History Tobacco [...] PM EST Office Visit Radiation Oncology at [address] [phone] Ag Cruz MD [facility] [place] [address] documented as of this encounter Visit Diagnoses Not on filedocumented in this encounter Care Teams Front End Loader Operator Relationship Specialty Start Date End Date Weston Tobias PA [address] [place] [address] PCP - General Family Medicine 02/25/21 documented as of this encounter
--- OUTSIDE RECORDS SUMMARY | 2023-12-01 15:59 | XMS_ITS | Encounter Summary ---
Author Organization [facility] [place] [address] Care Team Providers Care Insurance Claims Supervisor Name Role Phone Weston Tobias Primary Care Provider +1- [phone] Encounter Details Date Type Department Care Team (Late st Contact Info) Description 10/26/2022 3:50 PM EDT Telehealth [place] [phone] Telehealth, Neurology None Social History Tobacco Use [...] place to sleep or slept in a custodial (including now)? Yes 04/07/2021 Sex and Gender Information Value Date Recorded Sex Assigned at Not on file Gender Identity Not on file Sexual Orientation Not on file documented as of this encounter Miscellaneous Notes * Consult Note - Louis Ayala MD - 10/26/2022 3:50 PM EDT Follow-up phone call: I spoke with Dr. Rivera regarding Reggie Pena . who was seen twice for repeated strokes first by Dr. England on 09/11 when he presented with severe left- sided hemiparesis with head CT scan showing right acute infarction in the posterior limb of the internal capsule. Head and neck CT angiogram thatthen was unremarkable and subsequent work-up including echocardiogram and telemetry did not indicate cardioembolic phenomena. He was started on aspirin and Plavix after loading along with full dose statin. Shortly after and on 09/21 he presented with another sudden onset symptoms including right body numbness and head CT scan shows left thalamic Pneumostat hypodensity indicating new infarction. Dr. Pandya evaluated the patient through Tele-Neurology and indicated atypical presentation of recurrent stroke despite being fully treated in the first place. Plavix was replaced with ticagrelor 90 mg twicedaily along with keeping aspirin and full dose statin. Dr. Pandya suggest that investigating atypical causes of recurrent acute ischemic stroke in relatively young patient. Patient's BMI did not allow him to get brain MRI in both times. Since then, there has been improvement so far in the hospital as he has been for 6-week pending acute rehab placement. He is walking right now and endorsing left arm weakness still.I suggested continuing aspirin with ticagrelor for 90 days total at least. By that time the hope is that he would havea chance to get a brain MRI for further elaboration and characterization of his previous strokes. Also the need to be seen by neurology preferably by stroke neurology up in [place] as he has been seen already by 2 specialists from over there. On the other hand, I recommended starting the work-up for atypical stroke etiologies including vasculitic, infectious, rheumatological, and metabolic causes. Plan: -Continue monitoring and plans for placement with PT/OT evaluation -Plan brain MRI (open mostly) and outpatient for further characterization of his previous strokes -Obtain coagulation work-up including Antithrombin III, factor V. Leiden deficiency, glycoprotein 2A/3B, protein S, protein C, and antiphospholipid Ab panel. -Obtain tickborne serology, VDRL, ESR, CRP, and ANCA. -Continue ticagrelor 90 mg twice daily along with aspirin 81 mg daily -Continue atorvastatin 80 mg daily -Avoid hypotensive state -Follow-up with stroke neurology first available Louis Ayala MD [facility] Tele-Neurology documented in this encounter Plan of Treatment Upcoming Encounters Date Type Department Care Team (Late st Contact Info) Description 02/02/2024 3:00 PM EST Office Visit Radiation Oncology at [address] [phone] Ag Cruz MD [facility] [place] [address] documented as of this encounter Visit Diagnoses Not on filedocumented in this encounter Care Teams Insurance Claims Supervisor Relationship Specialty Start Date End Date Weston Tobias PA [address] [place], [place] [id number] PCP - General Family Medicine 02/25/21 documented as of this encounter
--- OUTSIDE RECORDS SUMMARY | 2023-12-01 15:59 | XMS_ITS | Encounter Summary ---
Author Organization [facility] Address [facility] [place] [address] Care Team Providers Care Systems Consultant Name Role Phone Weston Tobias Primary Care Provider +1- [phone] Encounter Details Date Type Department Care Team (Late st Contact Info) Description 01/22/2022 10:05 PM EST Ancillary Procedure Radiology Library at [facility] [place] [phone] Mat Casper MD [facility] [place] [address] Social History Tobacco Use Types Packs/Day Years [...] place to sleep or slept in a snf (including now)? Yes 04/07/2021 Sex and Gender Information Value Date Recorded Sex Assigned at Not on file Gender Identity Not on file Sexual Orientation Not on file documented as of this encounter Plan of Treatment Upcoming Encounters Date Type Department Care Team (Late st Contact Info) Description 02/02/2024 3:00 PM EST Office Visit Radiation Oncology at [address] [phone] Ag Cruz MD [facility] [place] [address] documented as of this encounter Procedures Procedure Name Priority Date/Time Associated Diagnosis Comments FILM LIBRARY STORAGE ONLY DX CHEST Routine 01/22/2022 9:56 PM EST documented in this encounter Results * Film Library- Storage Only DX Chest (01/22/2022 9:56 PM EST) Narrative LISA - 01/22/2022 9:56 PM EST This exam is auto-finalizing. It's purpose is for storage only. Mat Casper MD IMG FILM LIBRARY O RDERABLES [place], [place] documented in this encounter Visit Diagnoses Not on filedocumented in this encounter Care Teams Systems Consultant Relationship Specialty Start Date End Date Weston Tobias PA [address] [place] [address] PCP - General Family Medicine 02/25/21 documented as of this encounter
--- OUTSIDE RECORDS SUMMARY | 2023-12-01 15:59 | XMS_ITS | Encounter Summary ---
[place] [address] Care Team Providers Care Radiation Protection Specialist Name Role Phone Weston Tobias Primary Care Provider +1- [phone] Encounter Details Date Type Department Care Team (Late st Contact Info) Description 10/30/2021 3:00 PM EDT Office [place] [phone] Mat Ball, [employer] [place] Social History Tobacco Use Types Packs/Day [...] Notes * Initial Evaluation - Mat Ball, [employer] - 10/30/2021 3:00 PM EDT Department of Rehabilitation Medicine Speech Pathology Plan Of Care TEP Re-Evaluation/Placement Reggie Pena Sr. : 1970 10/30/2021 12:50 PM Total Evaluation Time: 25 min. Eval. Time Codes: 0 min. Evaluation [...] (with plans to quitafter this admission), with [id number] SCCa of the supraglottic larynx.?S/P total laryngectomy and primary creations of TEP on 04/29/21. ??Initial TEP sizing and placement on 05/07/21. Pt now returnsfor reassessment of TEP. Last TEP change was on 06/05/21. H Past Medical History: Diagnosis Date ??? Diabetes mellitus ??? Obesity ??? Panniculitis ??? Throat cancer S: ??? Pt. denies significant pain or distress at this time ??? Pt reports leaking through or around TEP at this time. ??? No family present for discussion/support O: ??? Reviewed record ??? Pt was referred by Mat Casper MD (ENT) for assessment and re- placement of TEP Oral-Peripheral/Neck Examination ??? 10mm 20Fr Ryan Veronica Classic TEP in place with slightly loose, but adeqaute fit. ??? Phonation is excellent. ??? No leakage through or around TEP at this time. ??? Stoma is noted to have an open wound at the inferior aspect. Agree with plan to avoid use of adhesive housing and HME for nearly a month to allow for complete healing of wound. Then return to Adhesive housing and HME use. ??? Oral structures and functions appear WNL/WFL ??? Moderate dried tracheal secretions TEP Placement ??? No need for TEP change at this time. HME ??? Pt is to hold on HME and adhesive housing for one moth to allow for stomal wound healing. Then return to adhesive housing and HME wear. Pt/Caregiver Education & Training None. Supplies Provided to Pt/Caregiver ??? None. A: Pt is able to communicate well with TEP. No leakage is noted through or around TEP at this time. TEP fit is adequate. No need for TEP change at this time. Recommendations ?? Flush TEP with water at least 3x/day ?? [place] TEP PRN ?? Contact ENT/[employer] with any ?'s or concerns re: TEP; contact info. given to pt ??? Pt is to hold on HME and adhesive housing wear for approximately one month to allow for stomal wound healing. Then return to adhesive housing and HME wear. Current Goals ??? None. P: ??? D/C from Speech Pathology service for now. Patient to f/u PRN in ENT Clinic ??? Pt. is in agreement with plan of treatment Mat Ball MS, [facility]-[employer] Speech-Language Pathologist Rehabilitation Medicine Pager # [phone] documented in this encounter Plan of Treatment Upcoming Encounters Date Type Department Care Team (Late st Contact Info) Description 02/02/2024 3:00 PM EST Office Visit Radiation Oncology at [address] [phone] Ag Cruz MD [facility] [place] [address] documented as of this encounter Visit Diagnoses Diagnosis Aphonia documented in this encounter Care Teams Radiation Protection Specialist Relationship Specialty Start Date End Date Weston Tobias PA [address] [place] [address] PCP - General Family Medicine 02/25/21 documented as of this encounter
--- OUTSIDE RECORDS SUMMARY | 2023-12-01 15:59 | XMS_ITS | Encounter Summary ---
Author Organization [facility] Address [address] [facility] [place] [address] Care Team Providers Care [place] Guide Name Role Phone Weston Tobias Primary Care Provider +1- [phone] Encounter Details Date Type Department Care Team (Latest Contact Info) Description 04/21/2022 Travel Social History Tobacco Use Types Packs/Day [...] PM EST Office Visit Radiation Oncology at [address] [phone] Ag Cruz MD [facility] [place] [address] documented as of this encounter Visit Diagnoses Not on filedocumented in this encounter Care Teams [place] Guide Relationship Specialty Start Date End Date Weston Tobias PA [address] [place] [address] PCP - General Family Medicine 02/25/21 documented as of this encounter
--- OUTSIDE RECORDS SUMMARY | 2023-12-01 15:59 | XMS_ITS | Encounter Summary ---
Author Organization [facility] [place] [address] Care Team Providers Care Sand Sifter Name Role Phone Weston Tobias Primary Care Provider +1- [phone] Encounter Details Date Type Department Care Team (Latest Contact Info) Description 09/11/2022 7:35 PM EDT Telehealth notes [place] [phone] Telehealth, Neurology None Cerebrovascular accident (CVA), unspecified mechanism Social History Tobacco Use Types Packs/Day Years [...] encounter Miscellaneous Notes * Consult Note - Inna Gonzalez MD - 09/11/2022 7:35 PM EDT [facility] TELENEUROLOGY EMERGENT TELENEUROLOGY CONSULT NOTE Date 09/11/22 Patient: Reggie Pena Sr. : 1970 Gender: male VISIT Requesting Location: [place] Requesting Physician: Dr. Ruff Consent obtained from: Patient, patient's daughter and mother present in the room at the time of myevaluation. Diagnosis/Reason for Consult: AIS TLKW 4.5-24 hours (Note: not a tPA candidate) Arrival Date: 09/11/22 Arrival Time: 1899 Consult Request Time: 1944 Start Time of Video Consult: 1954 Time Last Known Well: 1400 PROVIDER NOTES History: 52 y/o male present to ED with acute onset of left sided weakness this afternoon at around 1400. Was at usual baseline health, no prodromal symptoms. Weakness had been progressively getting worse since onset. Denies any language deficits, no visual abnormalities Past Medical History: HTN, DM, hypothyroid, Laryngeal cancer s/p resection and radiation therapy Current Medications: Lisinopril, metformin, gabapentin, Synthroid Allergies: NKDA Neurologic Social History: Are you a current smoker or have you ever smoked: yes Do you consume alcohol: no Vitals: Pulse: 78 Blood Pressure: 170/106 NIH STROKE SCALE 1A. Level of Consciousness 0 1B. LOC Questions 0 1C. LOC Commands 0 2. Best Gaze 0 3. Visual 0 4. Facial Palsy 1 5. Motor Arm Left Arm 3 Right Arm 0 6. Motor Leg Left Leg 2 Right Leg 0 7. Limb Ataxia 1 8. Sensory 1 9. Best Language 0 10. Dysarthria 2 11. Extinction and Inattention (formerly neglect) 0 Radiology Imaging Imaging/Results: Head CT: no evidence of acute intracranial pathology. CTA head and neck: no LVO CLINICAL IMPRESSION/DIAGNOSIS: Stroke, possible a lacunar infraction of the right hemisphere. Not candidate for thrombolytic therapy as he presented outside of therapeutic window. No LVO present. RECOMMENDATIONS/PLAN: -dysphagia screening. Patient has baseline dysphagia from post-surgical changes. - ASA 300 mg + Plavix 300 mg PO stat - Continue ASA 81 mg + Plavix 75 mg PO daily for 21 days, then continue ASA 81 mg PO daily only. - Atorvastatin 40 mg PO daily. - Admit to complete stroke work up. - Neuro checks and vitals checks at least q4hrs. - Brain MRI - Please confirm radiographic findings with radiology Additional Stroke Management Recommendations. Labs HbA1C Lipid profile PT/PTT CBC, CMP, TSH Vitals Permissive hypertension x 24 hours. Treat for SBP >220 or DBP >120 Keep SpO2 > 94% Medications Antiplatelets: Aspirin 81 + Plavix 75 mg Blood sugar goal <180 Statins with goal LDL<70 DVT prophylaxis Cardiac EKG, Telemetry ECHO with bubble study Supportive PT/OT/ ST evaluation Dysphagia screening OBSERVATION/ADMISSION/TRANSFER: Admission Inna Gonzalez MD Vascular Neurology documented in this encounter Plan of Treatment Upcoming Encounters Date Type Department Care Team (Late st Contact Info) Description 02/02/2024 3:00 PM EST Office Visit Radiation Oncology at [address] [phone] Ag Cruz MD [facility] RADIATION ONCOLOGY [place], [place] [id number] documented as of this encounter Visit Diagnoses Diagnosis Cerebrovascular accident (CVA), unspecified mechanism documented in this encounter Care Teams Sand Sifter Relationship Specialty Start Date End Date Weston Tobias PA [address] [place] [address] PCP - General Family Medicine 02/25/21 documented as of this encounter
--- OUTSIDE RECORDS SUMMARY | 2023-12-01 15:59 | XMS_ITS | Encounter Summary ---
[place] [address] Care Team Providers Care Gold Tooler Name Role Phone Weston Tobias Primary Care Provider +1- [phone] Encounter Details Date Type Department Care Team (Late st Contact Info) Description 12/24/2021 Telephone [place] [address] Jeniffer Mckinley Social History Tobacco [...] * Telephone Encounter - Jeniffer Mckinley - 12/24/2021 10:15 AM EST Called pt's daughter Milagros to schedule pt for fuv OV with Dr. Casper in Jan. [place] for her to callback. documented in this encounter Plan of Treatment Upcoming Encounters Date Type Department Care Team (Late st Contact Info) Description 02/02/2024 3:00 PM EST Office Visit Radiation Oncology at [address] [phone] Ag Cruz MD [facility] [place] [address] documented as of this encounter Visit Diagnoses Not on filedocumented in this encounter Care Teams Gold Tooler Relationship Specialty Start Date End Date Weston Tobias PA [address] [place] [address] PCP - General Family Medicine 02/25/21 documented as of this encounter
--- OUTSIDE RECORDS SUMMARY | 2023-12-01 16:00 | XMS_ITS | Encounter Summary ---
[place] [address] Care Team Providers Care Concept Artist Name Role Phone Weston Tobias Primary Care Provider +1- [phone] Reason for Referral * Diagnostic Test (Routine) - Closed Specialty Diagnoses / Procedures Referred By Contac Referred To Contact Radiology Diagnoses Squamous cell carcinoma of supraglottis Procedures CT Chest w Contrast CT Chest wo Contrast (Generic) Ag Cruz MD [facility] [address] [facility] [place] [address] Referral ID Status Reason Start Date Expiration Date V isits Requested Visits Authorized [id number] Closed Specialty Service Requested 09/23/2021 03/26/2023 1 1 * Diagnostic Test (Routine) - Closed Specialty Diagnoses / Procedures Referred By Contdavid t Referred To Contact Radiology Diagnoses Squamous cell carcinoma of supraglottis Procedures CT Neck Soft Tissue w Contrast (Generic) Ag Cruz MD [facility] [place] [address] [facility] [place] [address] Referral ID Status Reason Start Date Expiration Date V isits Requested Visits Authorized [id number] Closed Specialty Service Requested 09/23/2021 03/26/2023 1 1 Encounter Details Date Type Department Care Team (Late st Contact Info) Description 09/23/2021 Orders [place] [phone] Ag Cruz MD [facility] [place] [address] Squamous cell carcinoma of supraglottis Social History [...] EST Office Visit Radiation Oncology at [address] [phone] Ag Cruz MD [facility] [place] [address] documented as of this encounter Results * CT Chest w Contrast (10/30/2021 8:38 AM EDT) Anatomical Region Laterality Modality Chest Computed Tomogra phy 10/30/2021 8:56 AM EDT Impressions 10/30/2021 10:44 AM EDT 1. ??No evidence of metastatic disease within the chest. 2. ??Hepatic steatosis. 3. ??Please see separate report of CT neck. I have personally reviewed the image(s) and the resident's interpretation and agree with the findings, Jaimie Delgado MD at 10/30/2021 10:44 AM Thank you for letting us participate in the care of this patient. ??If you are a health care provider and have any questions regarding this report, please contact the number below. ??For patients who have questions please contact the health career guidance counselor that requested your imaging first. ? Narrative 10/30/2021 10:44 AM EDT EXAMINATION: CT CHEST W CONTRAST CLINICAL HISTORY: Head/neck cancer, assess treatment response; Head/neck cancer, staging s/p surgery / radiotherapy for laryngeal cancer, assess for progression TECHNIQUE: 3.75 mm thick axial contiguous sections were obtained through the chest via helical acquisition after the intravenous administration of contrast, 110 mL Omnipaque 350. Thin-section reconstructions as well as coronal and sagittal reformatted images were generated. COMPARISON: PET/CT 03/31/2021 FINDINGS: Pulmonary parenchyma: The lungs are clear. [...] findings. Skeletal structures: No suspicious osseous lesions. Procedure Note Jaimie Delgado MD - 10/30/2021 EXAMINATION: CT CHEST W CONTRAST CLINICAL HISTORY: Head/neck cancer, assess treatment response; Head/neckcancer, staging s/p surgery / radiotherapy for laryngeal cancer, assess for progression TECHNIQUE: 3.75 mm thick axial contiguous sections were obtained throughthe chest via helical acquisition after the intravenous administration ofcontrast, 110 mL Omnipaque 350. Thin-section reconstructions as well as coronaland sagittal reformatted images were generated. COMPARISON: PET/CT 03/31/2021 FINDINGS: Pulmonary parenchyma: The lungs are clear. No pulmonary nodules. Airways: The central airways are patent. Pleura: No pleural effusion or pneumothorax. Lymph nodes: No enlarged lymph nodes. Heart, pericardium, and great vessels: No significant findings. Other mediastinal structures: No significant findings. Lower neck: Please see separate report of CT neck from today. Upper abdomen: Diffuse low attenuation of the liver consistent withhepatic steatosis. Small punctate hepatic calcified granuloma. Body wall soft tissues: No significant findings. Skeletal structures: No suspicious osseous lesions. IMPRESSION 1. No evidence of metastatic disease within the chest. 2. Hepatic steatosis. 3. Please see separate report of CT neck. I have personally reviewed the image(s) and the resident's interpretationand agree with the findings, Jaimie Delgado MD at 10/30/2021 10:44 AM Thank you for letting us participate in the care of this patient. If youare a health care provider and have any questions regarding this report,please contact the number below. For patients who have questions please contactthe health career guidance counselor that requested your imaging first. Electronically signed by: Jaimie Delgado MD, [facility]([phone]), at 10/30/2021 10:44 AM Ag Cruz MD IMG CT ORDERABLES * CT Neck Soft Tissue w Contrast (Generic) (10/30/2021 8:38 AM EDT) Anatomical Region Laterality Modality Neck, Head Computed Tomogra phy 10/30/2021 8:56 AM EDT Impressions 10/30/2021 10:02 AM EDT 1. ??No evidence of local tumor recurrence. 2. ??No cervical lymphadenopathy. 3. ??No evidence of regional distant metastases. Thank you for letting us participate in the care of this patient. ??If you are a health care provider and have any questions regarding this report, please contact the number below. ??For patients who have questions please contact the health career guidance counselor that requested your imaging first. ? 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 Adjuvant radiotherapy completed 07/30/21. TECHNIQUE: CT neck performed after the intravenous administration of contrast. . COMPARISON: CT neck 03/20/[address] scan 06/05/2021 FINDINGS: Interval laryngectomy since the 03/20/2021 study with a tracheostomy tube and a tracheoesophageal voice prosthesis device in place. Multiple surgical clips bilaterally in the neck from prior neck dissections in addition to the left tongue base region from additional dissection. There is no abnormal enhancement or soft tissue mass to suggest local recurrence. No cervical lymphadenopathy bilaterally throughout the neck. There is blurring of the fat planes throughout the neck from expected postsurgical changes. The visualized portions of the lungs show no pulmonary nodules. No focal osseous lesions to suggest osseous metastases. The visualized portions of the brain are grossly normal. Incidental 6.3 cm lipoma in the dorsal left neck soft tissues. Procedure Note Jimmy Rowan MD - 10/30/2021 EXAMINATION: CT NECK SOFT TISSUE W CONTRAST (GENERIC) CLINICAL HISTORY: Head/neck cancer, assess treatment response s/p surgery / radiotherapy for laryngeal cancer, assess treatmentresponse 51 y.o.?male?with pT3N0 (Stage III)?squamous cell carcinoma of thesupraglottic larynx, s/p total laryngectomy and bilateral modified neck dissection04/29/21, 5.2 cm, LI/PNI (-), margins (-), closest margin >?5 mm, 0/122 LN (+).Adjuvant radiotherapy completed 07/30/21. TECHNIQUE: CT neck performed after the intravenous administration of contrast. . COMPARISON: CT neck 03/20/[address] scan 06/05/2021 FINDINGS: Interval laryngectomy since the 03/20/2021 study with a tracheostomy tubeand a tracheoesophageal voice prosthesis device in place. Multiple surgicalclips bilaterally in the neck from prior neck dissections in addition to theleft tongue base region from additional dissection. There is no abnormalenhancement or soft tissue mass to suggest local recurrence. No cervical lymphadenopathy bilaterally throughout the neck. There isblurring of the fat planes throughout the neck from expected postsurgicalchanges. The visualized portions of the lungs show no pulmonary nodules. No focalosseous lesions to suggest osseous metastases. The visualized portions of thebrain are grossly normal. Incidental 6.3 cm lipoma in the dorsal left neck soft tissues. IMPRESSION 1. No evidence of local tumor recurrence. 2. No cervical lymphadenopathy. 3. No evidence of regional distant metastases. Thank you for letting us participate in the care of this patient. If youare a health care provider and have any questions regarding this report,please contact the number below. For patients who have questions please contactthe health career guidance counselor that requested your imaging first. Electronically signed by: Jimmy Rowan MD, [facility]([phone]), at 10/30/2021 10:02 AM Ag Cruz MD IMG CT ORDERABLES * Creatinine (10/30/2021 7:44 AM EDT) Creatinine 0.94 0.80 - 1.50 mg/dL [facility] Est Glomerular Filtration Rate 99 >=60 mL/min/1. 73 m?? [facility] Comment: This patient's estimated GFR [...] In Lab Ag Cruz MD CHEMISTRY ORDERABLES [place] [address] documented in this encounter Visit Diagnoses Diagnosis Squamous cell carcinoma of supraglottis Malignant neoplasm of supraglottis Squamous cell carcinoma of supraglottis Malignant neoplasm of supraglottis documented in this encounter Care Teams Concept Artist Relationship Specialty Start Date End Date Weston Tobias PA [address] [place] [address] PCP - General Family Medicine 02/25/21 documented as of this encounter
--- OUTSIDE RECORDS SUMMARY | 2023-12-01 16:00 | XMS_ITS | Encounter Summary ---
Author Organization [facility] Address [facility] [address] [place] [address] Care Team Providers Care Robotic Machine Tender Production Name Role Phone Weston Tobias Primary Care Provider +1- [phone] Encounter Details Date Type Department Care Team (Late st Contact Info) Description 06/18/2021 2:30 PM EDT Office Visit Radiation Oncology at [address] [phone] Ag Cruz MD [facility] [place] [address] Squamous cell carcinoma of supraglottis Social History [...] Sign Reading Time Taken Comments Blood Pressure 151/94 06/18/2021 2:20 PM EDT Pulse 80 06/18/2021 2:20 PM EDT Temperature 36.3 ??C (97.4 ??F) 06/18/2021 2:20 PM ED T Respiratory Rate 18 06/18/2021 2:20 PM EDT Oxygen Saturation 99% 06/18/2021 2:20 PM EDT Inhaled Oxygen Concentration - - Weight 155.9 kg (343 lb 12.8 oz) 06/18/2021 2:23 PM EDT Height 182.9 cm (6' 0.01) 06/18/2021 2:20 PM ED T Body Mass Index 46.62 06/18/2021 2:20 PM EDT documented in this encounter Progress Notes * Ag Cruz MD - 06/18/2021 2:30 PM EDT ON TREATMENT VISIT NOTE Reggie Luan Pena Sr. is a 51 y.o. 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 Adjuvant radiotherapy Current treatment dose: 2 Gy in 1 fractions. Anticipated total dose: 60 Gy in 30 fractions. Concomitant Therapy: N Evaluation of Port Verification Films: PORT films have been reviewed, please see ARIA for details. Changes in medical condition Pain: left shoulder pain, 08/24, stable. No oropharyngeal pain. Secretions/Dryness: no dysgeusia, no xerostomia Swallowing Function: no issues Nutrition / G tube: all by mouth. No G tube. Skin: no issues GI: -N/V: no issues -Bowels: no issues Other: Nutrition Assessment: Weight : 150.6 kg initial Change: NA Objective: Vitals: 06/18/21 1420 06/18/21 1423 BP: (!) 151/94 Patient Position: Sitting Pulse: 80 Resp: 18 Temp: 36.3 ??C (97.4 ??F) TempSrc: Temporal SpO2: 99% Weight: (!) 150.6 kg (332 lb 0.2 oz) (!) 155.9 kg (343 lb 12.8 oz) Height: 182.9 cm (6' 0.01) SKIN: no skin erythema HEENT: no mucositis Assessment: No toxicity, treatment started within the last week. CTCAE TOXICITY GRADES (see below for bradley): Site Grade Skin 0 Xerostomia 0 Pharyngeal Mucositis 0 Dysphagia 0 Hoarseness 0 TREATMENT RESPONSE: No change Plan: ?? Continue RT per prescription ?? Pain control: none needed at this time ?? Skin: Jeans cream prn ?? Mucositis: ?? Pain control: see above ?? Oral hygiene consisting of baking soda/salt rinse at least 8 times daily ?? Alimentation: prover following ?? Weight stable, all by mouth at this time ?? GI: ?? NV: No issues ?? Bowels: No issues CTCAE v4.03 scales for reference Skin 0 1 2 3 4 No change from baseline Faint erythema or dry desquamation Moderate to brisk erythema; patchy moistdesquamation mostly confined to skin folds & creases; moderate edema Moist desquamation in areas other than skin folds and creases; bleeding induced by minor trauma or abrasion Life threatening consequences; skin necrosis or ulceration of full thickness dermis; spontaneous bleeding; skin graft indicated Xerostomia 0 1 2 3 4 No change from baseline Symptomatic (dry or thick saliva) without significant dietary alteration Moderate sx: oral intake alterations (e.g. copious water, diet limited to purees or soft, moist foods)Inability to adequately aliment orally, TPN or PEG indicated NA Pharyngeal Mucositis: 0 1 2 3 4 No change from baseline Asymptomatic or mild symptoms; normal oral intake; mild pain but analgesia not indicated Moderate pain and analgesics indicated; altered oral intake; limiting instrumental ADLs Severe pain, unable to adequately aliment or hydrate orally; limiting self care ADLs Life threatening consequences; urgent intervention indicated Dysphagia 0 1 2 3 4 No change from baseline Symptomatic, able to eat regular diet Symptomatic and altered eating/swallowing Severely altered eating/swallowing; tube feeds, TPN or hospitalization indicated Life threatening consequences; urgent intervention indicated Hoarseness 0 1 2 3 4 No change from baseline Mild or intermittent voice change; fully understandable, self-resolves Moderate or persistent voice change; may require occasional repetition but understandable on telephone Severe voice change including predominantly whispered speech NA documented in this encounter Plan of Treatment Upcoming Encounters Date Type Department Care Team (Late st Contact Info) Description 02/02/2024 3:00 PM EST Office Visit Radiation Oncology at [address] [address] Ag Cruz MD [facility] [place] [address] documented as of this encounter Visit Diagnoses Diagnosis Squamous cell carcinoma of supraglottis Malignant neoplasm of supraglottis documented in this encounter Care Teams Robotic Machine Tender Production Relationship Specialty Start Date End Date Weston Tobias PA [address] [place] [address] PCP - General Family Medicine 02/25/21 documented as of this encounter
--- OUTSIDE RECORDS SUMMARY | 2023-12-01 16:00 | XMS_ITS | Encounter Summary ---
Author Organization [facility] Address [facility] [address] Care Team Providers Care Butcher Scullion Name Role Phone Weston Tobias Primary Care Provider +1- [phone] Encounter Details Date Type Department Care Team (Late st Contact Info) Description 08/15/2021 Telephone Radiation Oncology at [address] [phone] Joanne Mason RN Social History Tobacco Use Types Packs/Day Years [...] encounter Miscellaneous Notes * Telephone Encounter - Nakitaaly Joanne Rogers RN - 08/15/2021 2:53 PM EDT Caller: Milagros Rick Relationship: Daughter Clarified Two Patient Identifiers: [x] Reason For Call: Fatigue/Appetite or Energy Assessment/Symptom Review (onset, location, duration, what makes it better or worse, pertinent positives and negatives): States that over the last week Reggie has complained of decreased appetite and fatigue. Followed up with his PCP. She caitie labs. Of note, Glucose was elevated, TSH slightly elevated. Sodium Slightly low at 135. PCP is currently following the patient and making recommendations. Discussed that fatigue and decreased appetite could still be effects from the Radiation Therapy, and that hopefully in a week or so things will start to improve. Milagros states that she thinks her father may also be feeling a little depressed, which is his baseline, but this seems worse. She did let his PCP know this as well. Review of Systems Related to Reason for Call: System POS NEG Not Applicable Head (ENT /Neuro) [] [x] [] Cardiac [] [x] [] Respiratory [] [x] [] GI [] [x] [] [x] [] [] Musculoskeletal [x] [] [] Integumentary [] [x] [] Mental Health [x] [] [] Select Specific Decision Support Tool Used: sent to Dr Cruz Name of Guideline/Protocol Used: Disposition/Plan of Care: home with support from family and PCP. Will see in follow up Patient/Caregiver verbalizes understanding of plan of care: Yes Patient/Caregiver agrees with plan: Yes Advised patient/caregiver to: Yes Patient/Caregiver demonstrates understanding via teach back: Yes ----- Message from Sherri Yi sent at 08/15/2021 11:06 AM EDT ----- Regarding: Not Feeling the Best Reggie is very tired and has no appetite. He did go to his PCPs office 08-13-21 for his routine visit. They did draw a set of labs just incase something was off. But Milagros wanted to let our office knowso our providers could take a look as well. Labs in chart now. Thanks Iesha~ documented in this encounter Plan of Treatment Upcoming Encounters Date Type Department Care Team (Late st Contact Info) Description 02/02/2024 3:00 PM EST Office Visit Radiation Oncology at [address] [phone] Ag Cruz MD [facility] [place] [address] documented as of this encounter Visit Diagnoses Not on filedocumented in this encounter Care Teams Butcher Scullion Relationship Specialty Start Date End Date Weston Tobias PA [address] [place] [address] PCP - General Family Medicine 02/25/21 documented as of this encounter
--- OUTSIDE RECORDS SUMMARY | 2023-12-01 16:00 | XMS_ITS | Encounter Summary ---
[place] [address] Care Team Providers Care Sap Data Analyst Name Role Phone Weston Tobias Primary Care Provider +1- [phone] Encounter Details Date Type Department Care Team (Late st Contact Info) Description 05/21/2021 Telephone [place] [address] Valerie Garcia Social History Tobacco Use Types Packs/Day Years [...] place to sleep or slept in a longterm (including now)? Yes 04/07/2021 Sex and Gender Information Value Date Recorded Sex Assigned at Not on file Gender Identity Not on file Sexual Orientation Not on file documented as of this encounter Miscellaneous Notes * Telephone Encounter - Valerie Garcia - 05/21/2021 9:45 AM EDT Jerrell from [facility] called today stating that [facility] needs to start the insurance authorization process for this pt to get his supplies covered under his insurance. You can call his direct line at [phone] with any questions documented in this encounter Plan of Treatment Upcoming Encounters Date Type Department Care Team (Late st Contact Info) Description 02/02/2024 3:00 PM EST Office Visit Radiation Oncology at [address] [phone] Ag Cruz MD [facility] [place] [address] documented as of this encounter Visit Diagnoses Not on filedocumented in this encounter Care Teams Sap Data Analyst Relationship Specialty Start Date End Date Weston Tobias PA [address] [place] [address] PCP - General Family Medicine 02/25/21 documented as of this encounter
--- OUTSIDE RECORDS SUMMARY | 2023-12-01 16:00 | XMS_ITS | Encounter Summary ---
Author Organization [facility] [place] [address] Care Team Providers Care Collator Operator Name Role Phone Weston Tboias Primary Care Provider +1- [phone] Reason for Referral * Consultation (Routine) - Closed Specialty Diagnoses / Procedures Referred By Contdavid paz Referred To Contact Radiation Oncology Diagnoses Squamous cell carcinoma of supraglottis Procedures Simulation for Radiation Therapy Planning Ag Cruz MD [facility] [place] [address] [facility] Rad Onc Office [address] [place] [phone] Referral ID Status Reason Start Date Expiration Date V isits Requested Visits Authorized [id number] Closed Consult, Test & Treat 06/05/2021 09/14/2021 31 31 Encounter Details Date Type Department Care Team (Late st Contact Info) Description 05/27/2021 Orders [place] [address] Ag Cruz MD [facility] [place] [address] Squamous cell carcinoma of supraglottis Social History [...] place to sleep or slept in a [place] facility (including now)? Yes 04/07/2021 Sex and Gender Information Value Date Recorded Sex Assigned at Not on file Gender Identity Not on file Sexual Orientation Not on file documented as of this encounter Plan of Treatment Upcoming Encounters Date Type Department Care Team (Late st Contact Info) Description 02/02/2024 3:00 PM EST Office Visit Radiation Oncology at [address] [phone] Ag Cruz MD [facility] [place] [address] Scheduled Orders Name Type Priority Associated Diagnoses Orde r Schedule Simulation for Radiation Therapy Planning Procedures Routine Squamous cell carcinoma of supraglottis Ordered: 05/27/2021 documented as of this encounter Visit Diagnoses Diagnosis Squamous cell carcinoma of supraglottis Malignant neoplasm of supraglottis documented in this encounter Care Teams Collator Operator Relationship Specialty Start Date End Date Weston Tobias PA [address] [place] [address] PCP - General Family Medicine 02/25/21 documented as of this encounter
--- OUTSIDE RECORDS SUMMARY | 2023-12-01 16:00 | XMS_ITS | Encounter Summary ---
Author Organization [facility] Address [facility] [place] [address] Care Team Providers Care Flight Communications Officer Name Role Phone Weston Tobias Primary Care Provider [phone]- [phone] Reason for Visit * Speech Therapy (Routine) - Closed Specialty Diagnoses / Procedures Referred By Contdavid t Referred To Contact Speech Therapy Diagnoses Laryngeal cancer Dysphagia, unspecified type Mat Casper MD [facility] [place] [address] Mat Ball, INSULATION POWER UNIT TENDER [facility] PHYSICAL MEDICINE & [place] [address] Referral ID Status Reason Start Date Expiration Date V isits Requested Visits Authorized [id number] Closed Evaluate and Treat 04/14/2021 04/14/2022 30 30 Encounter Details Date Type Department Care Team (Late st Contact Info) Description 06/05/2021 9:00 AM EDT Office [place] [address] Mat Ball, INSULATION POWER UNIT TENDER Aphonia Social History Tobacco Use Types Packs/Day [...] Notes * Initial Evaluation - Mat Ball, INSULATION POWER UNIT TENDER - 06/05/2021 9:00 AM EDT Department of Rehabilitation Medicine Speech Pathology Plan Of Care TEP Re-Evaluation/Placement Reggie Pena Sr. : 1970 06/05/2021 11:13 AM Total Evaluation Time: 60 min. Eval. Time Codes: 0 min. Evaluation [...] Is a 51 y.o. male with history of obesity, T2DM, HTN, Tobacco use (with plans to quit after this admission), with [id number] SCCa of the supraglottic larynx. S/P total laryngectomy and primary creations of TEP on 04/29/21. Initial TEP sizing and placement on 05/07/21. Pt now returns for ed ucation and assessment of TEP. Ok per Dr. Casper to use TEP today (06/05/21) for phonation. PMH Past Medical History: Diagnosis Date ??? Diabetes mellitus ??? Obesity ??? Panniculitis ??? Throat cancer S: ??? Pt. denies significant pain or distress at this time ??? Pt's daughter present for discussion/support O: ??? Reviewed record ??? Pt was referred by Mat Casper MD (ENT) for assessment and re- placement of TEP Oral-Peripheral/Neck Examination ??? 16mm 20Fr Ryan Garcia TEP in place with loose fit. TEP is noted to be pistoning in tract. Likely related to reduced neck edema. ??? Patent stoma. Pt wearing Urmila tube in place via trach tie. Pt eager to remove Urmila tube. ??? Oral structures and functions appear WNL/WFL ??? Minimal tracheal secretions TEP Placement ??? Removed 16mm 20Fr Ryan garcia Classic TEP without difficulty. ??? Re-measured to 10mm ??? 10mm 20Fr Ryan Garcia Classic TEP placed ??? Good phonation with finger occlusion ??? No leakage noted through or around TEP at this time HME ??? Explained purpose of HME. Explained HME wear should be 24 hours daily, 7 days weekly. ??? Explained various housings for HME including adhesive housing and Rumila tube. Pt elected to try adhesive housing. ??? Demonstrated placement of oval flexiderm adhesive housing. Pt indicated understanding. ??? Faciliated prescription for Urmila tube, HME, adhesive housing, skin barrier wipes and adhesive removal to [facility]. Pt/Caregiver Education & Training ??? Reviewed cleaning, use, and precautions of TEP at length with pt. ??? Explained how to phonate with TEP. Pt return demonstrated to indicate understanding. Supplies Provided to Pt/Caregiver ??? 10mm 20fr Ryan Russeller Classic TEP A: Pt tolerated TEP change well with good phonation and without leakage through or around at this time. Education completed at above. Pt independently demonstrated ability to finger occlude stoma and HME for phonation. Phonation is clear and strong. Will plan to follow up in approximately 2 weeks time. Recommendations ?? Flush TEP with saline at least 3x/day ?? [place] TEP PRN ?? Contact ENT/INSULATION POWER UNIT TENDER with any ?'s or concerns re: TEP. ?? Wear filter system 24 hours a day as tolerated. Current Goals ??? Pt to demonstrate good comprehension of stomal and TEP care/maintenance. ??? Pt to demonstrate good comprehension of use of TEP. P: ??? Speech to follow-up in approximately 2 weeks time. Appointment made for 06/19/21 at 10:30 am. ??? Pt. is in agreement with plan of treatment Mat Ball MS, CCC-INSULATION POWER UNIT TENDER Speech-Language Pathologist Rehabilitation Medicine Pager # [phone] documented in this encounter Plan of Treatment Upcoming Encounters Date Type Department Care Team (Late st Contact Info) Description 02/02/2024 3:00 PM EST Office Visit Radiation Oncology at [address] [phone] Ag Cruz MD [facility] [place] [address] documented as of this encounter Visit Diagnoses Diagnosis Aphonia documented in this encounter Care Teams Flight Communications Officer Relationship Specialty Start Date End Date Weston Tobias PA [address] [place] [address] PCP - General Family Medicine 02/25/21 documented as of this encounter
--- OUTSIDE RECORDS SUMMARY | 2023-12-01 16:00 | XMS_ITS | Encounter Summary ---
Author Organization [facility] Address [facility] [place] [address] Care Team Providers Care Chemists Name Role Phone Weston Tobias Primary Care Provider [phone]- [phone] Encounter Details Date Type Department Care Team (Late st Contact Info) Description 10/01/2021 8:30 AM EDT Office Visit Hematology/Oncology at [address] [phone] Francia Madrid, SOCIAL MEDIA CAMPAIGN MANAGER Squamous cell carcinoma of supraglottis; Status post laryngectomy; Dysphonia; Dysphagia, unspecified type Social History Tobacco Use Types Packs/Day Years [...] as of this encounter Miscellaneous Notes * Treatment - Therapy - Francia Madrid, SOCIAL MEDIA CAMPAIGN MANAGER - 10/01/2021 8:30 AM EDT Speech-Language Pathology Progress Note 10/01/2021 Total Treatment Time: 30 min Interval History: SOCIAL MEDIA CAMPAIGN MANAGER spoke with Milagros prior to visit this date re: patient presentation / pain / use of HME and prosthesis function since last visit. Milagros reports patient was seen at Urgent Care on 09/26/21 and was prescribed antibiotics likely for infection. Milagros reports he is able to speak and is coughing less since being on the antibiotics . She reports there is redness around his stoma. Discussed possible referral for Certified Lymphedema specialist locally, as well as recommendation for follow up with Marjan-CHERISE at [facility] in Oral to reassess prosthesis fit as needed. S: Pt reports significant improvements with voicing/prosthesis use since last visit. Reports improved phonation since being prescribed antibiotics as of 09/26/21. Pt does not report any concerns with prosthesis or new onset pain at this time. Does endorse pain is 5/10 (slight improvement from previous week). Reports this is well managed. No leakage noted during visit. Upon inspection, TEP appears tilted anteriorly with scabbing superior to prothesis. Redness noted around stoma, however improved from previous week. Patient endorses not being gentle when removing adhesive housing. Unclear if Pt actually has specific supplies at home, will address with Milagros as she was unable to make visit this date. Per Milagros's report Pt may have discarded majority of trial devices/supplies. Reviewed benefits of using Night HMEs in context of sleep apnea which Pt reports he has decided not to address, as well as alternative adhesive housing options for sensitive skin. Reports less coughing over past few days but continues to experience fatigue throughout the day. Pt reports his taste and smell are both improving gradually and PO intake is adequate, previously reported globus at esophageal/neopharyngeal level with IDDSI Level 7 solids; has since resolved. Patient states he continues to take smaller bites, added moisture and alternates solids and liquids while eating. Has demonstrated comprehension with potential need for esophageal dilation if globus returns or becomes worse. Instructed to monitor trachea and TEP site for any changes from this date, to bring in trial devices for subsequent session (will discuss with Milagros via phone); encouraged patient to continue brush/flush method, attempt to clear phlegm and take breaks in between given amount of effort required. Patient is likely due for re-assessment / replacement of TEP prosthesis as this was originally placed in April of this year. O: Pt. seen for treatment of aphonia, dysphagia s/p total laryngectomy (04/2021) Current Goals ?? Pt to demonstrate good comprehension of stomal and TEP care/maintenance. Reviewed with patient how to flush and brush TEP prosthesis; patient able to verbalize appropriate technique, reports he does this as instructed at home, feels much more confident with this. ?? Pt to demonstrate good comprehension of use of TEP. Pt continues to be independent with finger occlusion of stoma with HME, which he is wearing more consistently throughout the day now. Phonation remains clear. Minimal pressure needed for phonation. ?? 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 Patient reports he does not prefer specialized nighttime HME after trialing this while sleeping since last visit. Patient also demonstrates adequate comprehension re: application of adhesive housing and HME filter. Re: hands-free HME - Previously reviewed options for hands-free HME device(s) for patient to order ?? Pt to demonstrate good comprehension of overt s/sx leakage in/around TEP, procedures to temporary TEP occlusion with available plug device(s), and s/sx worsening dysphagia / options for texture modifications. VFSE/MBSS if leakage suspected and discussion with medical team re: esophageal dysphagia if globus returns/creates issue with bolus flow and/or continued adequate PO intake. Patient is not experiencing globus at this time. Support groups - Has connected with caregiver of former laryngectomee. Reports the following: I deal with things my own way. - [employer] Will address access to support for caregivers per Milagros's availability. Left message with Milagros viaphone this date. A: Patient prescribed antibiotics for suspected infection (as of 09/26/21) now reports improvement withphonation and reduced cough frequency and mucous production relative to 09/24/21. Given what appearsto be shift in TEP placement, a follow up with CHERISE Londono [facility] on 10/30/21 is recommended (no leakage noted this date, however Pt does report increased difficulties with cleaning prosthesis and inquires re: frequency of TEP replacement). Patient is unsure of exact trial HME supplies he has at home. Patient was previously asked to bringhis supplies with him to his next appointment, however Milagros reports Pt discarded trial supplies. Plan is to have Pt/Milagros to order additional supplies including adhesive housing appropriate for sensitive skin. SOCIAL MEDIA CAMPAIGN MANAGER left message with Milagros re: this plan including FUV with Fco Ball-CHERISE in October. P: ?? Patient to schedule follow-up with CHERISE Londono at [facility] on 10/30/21 (requested SOCIAL MEDIA CAMPAIGN MANAGER dept. Line Crewman call Milagros to schedule). ?? Pt is in agreement with plan of treatment ?? Pt/Milagros to order additional supplies including adhesive housing appropriate for sensitive skin,as well as Hands Free HME. Francia Madrid MA CCC-SOCIAL MEDIA CAMPAIGN MANAGER Speech-Language Pathologist PURNIMA Pizarro Mechanical Planner Clinician documented in this encounter Plan of Treatment Upcoming Encounters Date Type Department Care Team (Late st Contact Info) Description 02/02/2024 3:00 PM EST Office Visit Radiation Oncology at [address] [phone] Ag Cruz MD [facility] [place] [address] documented as of this encounter Visit Diagnoses Diagnosis Squamous cell carcinoma of supraglottis Malignant neoplasm of supraglottis Status post laryngectomy Other postprocedural status Dysphonia Dysphagia, unspecified type documented in this encounter Care Teams Chemists Relationship Specialty Start Date End Date Weston Tobias PA [address] [place] [address] PCP - General Family Medicine 02/25/21 documented as of this encounter
--- OUTSIDE RECORDS SUMMARY | 2023-12-01 16:00 | XMS_ITS | Encounter Summary ---
[place] [address] Care Team Providers Care Ruby On Rails Web Developer Name Role Phone Weston Tobias Primary Care Provider +1- [phone] Encounter Details Date Type Department Care Team (Late st Contact Info) Description 10/29/2021 Telephone [place] [phone] Gifty Kelley Social History Tobacco Use Types Packs/Day Years [...] encounter Miscellaneous Notes * Telephone Encounter - Gifty Kelley - 10/29/2021 3:21 PM EDT lvm for Milagros to call back and schedule patient in 4 F on 10/30/2021 either 9 am or 3 pm ok per SEVERO,DONOR TECHNICIAN. Per Grace NAVARRO TEP issue documented in this encounter Plan of Treatment Upcoming Encounters Date Type Department Care Team (Late st Contact Info) Description 02/02/2024 3:00 PM EST Office Visit Radiation Oncology at [address] [phone] Ag Cruz MD [facility] [place] [address] documented as of this encounter Visit Diagnoses Not on filedocumented in this encounter Care Teams Ruby On Rails Web Developer Relationship Specialty Start Date End Date Weston Tobias PA [address] [place] [address] PCP - General Family Medicine 02/25/21 documented as of this encounter
--- OUTSIDE RECORDS SUMMARY | 2023-12-01 16:00 | XMS_ITS | Encounter Summary ---
Author Organization [facility] Address [facility] [address] [place] [address] Care Team Providers Care Greens Laborer Name Role Phone Weston Tobias Primary Care Provider +1- [phone] Encounter Details Date Type Department Care Team (Late st Contact Info) Description 10/01/2021 9:00 AM EDT Office Visit Radiation Oncology at [address] [phone] Ag Cruz MD [facility] [place] [address] Squamous cell carcinoma of supraglottis Social History [...] Sign Reading Time Taken Comments Blood Pressure 138/97 10/01/2021 9:22 AM EDT Pulse 100 10/01/2021 9:22 AM EDT Temperature 36.8 ??C (98.2 ??F) 10/01/2021 9:22 AM ED T Respiratory Rate 18 10/01/2021 9:22 AM EDT Oxygen Saturation 100% 10/01/2021 9:22 AM EDT Inhaled Oxygen Concentration - - Weight 165.2 kg (364 lb 3.2 oz) 10/01/2021 9:20 AM EDT Height - - Body Mass Index 49.38 07/30/2021 2:25 PM EDT documented in this encounter Progress Notes * Ag Cruz MD - 10/01/2021 9:00 AM EDT FOLLOW UP VISIT NOTE Reggie Luan Pena Sr. is a 51 y.o. 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 Adjuvant radiotherapy completed 07/30/21. Treatment dose: 60 Gy in 30 fractions. Concomitant Therapy: N Intercurrent History: presented to ED with increasing erythema around stoma, swelling, and cough. He was placed on Bactrim over the weekend, and he notes dramatic improvement in his symptoms. Changes in medical condition Pain: left shoulder pain, 3/10, stable. Helen-stomal pain is 1/10. Occasional throat pain. Tylenol prn. Secretions/Dryness: mild dysgeusia, mild xerostomia. Swallowing Function: some foods get stuck with bigger bites. Following with [facility] [facility] Nutrition / G tube: all by mouth. No G tube. Skin: on antibiotics (Bactrim), no pain or discomfort. Trach: crusting superior aspect of trachea GI: -N/V: no issues -Bowels: no issues Other: Nutrition Assessment: Weight : 150.6 kg initial Change: 161.8 => 165.2 Objective: Vitals: 10/01/21 0920 10/01/21 0922 BP: (!) 138/97 Patient Position: Sitting Pulse: 100 Resp: 18 Temp: 36.8 ??C (98.2 ??F) TempSrc: Temporal SpO2: 100% Weight: (!) 165.2 kg (364 lb 3.2 oz) SKIN: mild skin erythema around trach with some desquamation; crusting inside tracheostomy; mild skin erythema HEENT: no mucositis Assessment: Moderate toxicity. Overall improving excepting intercurrent infection that is now resolving on Bactrim. CTCAE TOXICITY GRADES (see below for brdaley): Site Grade Skin 2 Xerostomia 1 Pharyngeal Mucositis 1 Dysphagia 1 Hoarseness Aphonic Plan: ?? Pain control: ?? OTC medications ?? Skin: Ptplex cream / AP cream prn. ?? Mucositis: ?? Pain control: see above ?? Oral hygiene consisting of baking soda/salt rinse at least 8 times daily ?? Alimentation: leak detection engineer following ?? Weight stable, all by mouth at this time ?? GI: ?? NV: No issues ?? Bowels: No issues ?? Cellulitis: Bactrim, to complete prescription. He knows to call us with worsening symptoms. ?? FU: I will see him in one month. CTCAE v4.03 scales for reference Skin 0 [...] EST Office Visit Radiation Oncology at [address] [phone] Ag Cruz MD [facility] [place] [address] documented as of this encounter Visit Diagnoses Diagnosis Squamous cell carcinoma of supraglottis Malignant neoplasm of supraglottis documented in this encounter Care Teams Greens Laborer Relationship Specialty Start Date End Date Weston Tobias PA [address] [place] [address] PCP - General Family Medicine 02/25/21 documented as of this encounter
--- OUTSIDE RECORDS SUMMARY | 2023-12-01 16:00 | XMS_ITS | Encounter Summary ---
Author Organization [facility] Address [facility] [address] Care Team Providers Care Pad Extraction Tender Name Role Phone Weston Tobias Primary Care Provider +1- [phone] Reason for Visit * Speech Therapy (Routine) - Closed Specialty Diagnoses / Procedures Referred By Contdavid t Referred To Contact Speech Therapy Diagnoses Laryngeal cancer Dysphagia, unspecified type Mat Casper MD [facility] [place] [address] Mat Ball, COMMUNITY ORGANIZATION DIRECTOR [facility] PHYSICAL MEDICINE & [place] [address] Referral ID Status Reason Start Date Expiration Date V isits Requested Visits Authorized [id number] Closed Evaluate and Treat 04/14/2021 04/14/2022 30 30 Encounter Details Date Type Department Care Team (Late st Contact Info) Description 06/12/2021 9:00 AM EDT Office [place] [address] Mat Ball, COMMUNITY ORGANIZATION DIRECTOR Aphonia Social History Tobacco Use Types Packs/Day [...] Miscellaneous Notes * Treatment - Therapy - Mat Ball, COMMUNITY ORGANIZATION DIRECTOR - 06/12/2021 9:00 AM EDT Speech-Language Pathology Treatment session 06/12/2021 Total Treatment Time: 50 min. Total Timed Code Treatment: 0 min. KX Modifier used beginning date: Not applied. S: Pt requested an earlier appointment due to difficulty flushing and brushing his prosthesis. Ptamira accompanied him to this appointment. O: Pt. seen for treatment of aphonia. Current Goals ?? Pt to demonstrate good comprehension of stomal and TEP care/maintenance. Reviewed and demonstrated how to flush and brush TEP prosthesis. Pt and his daughter both return demonstrated flushing and brushing to indicate understanding. Both pt and his daughter indicated increased comfort with flushing and brushing his prosthesis. Pt is eagerly awaiting new light source to help him visualize TEP prosthesis easier. Reviewed application of adhesive housing and HME filter. Pt demonstrated ability to apply adhesive housing and filter. Discussed calling [employer] to order HME and flexiderm, oval adhesive housing. Pt's daughterindicated plan to follow-up with [employer]. ?? Pt to demonstrate good comprehension of use of TEP. Pt is now independent with finger occlusion of stoma with and without HME. Phonation remains clear.Minimal pressure needed for phonation. Pt expressed desire to pursue hands free device in the future. A: Pt is now utilizing his TEP for communication successfully. He and his daughter indicated increasedcomfort in caring for prosthesis after review of flushing and brushing today. They plan to practiceand decide if they wish to keep next weeks appointment or reschedule. Pt's daughter to follow-up with vendor regarding adhesive housing and HME supplies. P: ?? Speech to follow-up in approximately 1 weeks time if pt feels needed. Appointment made for 06/19/21 at 10:30 am. ?? Pt. is in agreement with plan of treatment Mat Ball MS, CCC-COMMUNITY ORGANIZATION DIRECTOR Speech-Language Pathologist Rehabilitation Medicine Pager # [phone] documented in this encounter Plan of Treatment Upcoming Encounters Date Type Department Care Team (Late st Contact Info) Description 02/02/2024 3:00 PM EST Office Visit Radiation Oncology at [address] [phone] Ag Cruz MD [facility] [place] [address] documented as of this encounter Visit Diagnoses Diagnosis Aphonia documented in this encounter Care Teams Pad Extraction Tender Relationship Specialty Start Date End Date Weston Tobias PA [address] [place] [address] PCP - General Family Medicine 02/25/21 documented as of this encounter
--- OUTSIDE RECORDS SUMMARY | 2023-12-01 16:00 | XMS_ITS | Encounter Summary ---
Author Organization [facility] Address [facility] [address] [place] [address] Care Team Providers Care Stage Set Designer Name Role Phone Weston Tobias Primary Care Provider +1- [phone] Encounter Details Date Type Department Care Team (Late st Contact Info) Description 07/02/2021 2:45 PM EDT Office Visit Radiation Oncology at [address] [phone] Ag Cruz MD [facility] [place] [address] Squamous cell carcinoma of supraglottis Social History [...] place to sleep or slept in a detention (including now)? Yes 04/07/2021 Sex and Gender Information Value Date Recorded Sex Assigned at Not on file Gender Identity Not on file Sexual Orientation Not on file documented as of this encounter Last Filed Vital Signs Vital Sign Reading Time Taken Comments Blood Pressure 168/95 07/02/2021 2:47 PM EDT Pulse 84 07/02/2021 2:47 PM EDT Temperature 36.1 ??C (97 ??F) 07/02/2021 2:47 PM EDT Respiratory Rate 20 07/02/2021 2:47 PM EDT Oxygen Saturation 100% 07/02/2021 2:47 PM EDT Inhaled Oxygen Concentration - - Weight 159.1 kg (350 lb 12.8 oz) 07/02/2021 2:47 PM EDT Height 182.9 cm (6' 0.01) 07/02/2021 2:47 PM ED T Body Mass Index 47.57 07/02/2021 2:47 PM EDT documented in this encounter Progress Notes * Ag Cruz MD - 07/02/2021 2:45 PM EDT ON TREATMENT VISIT NOTE Reggie Luan Pena Sr. is a 51 y.o. 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 Adjuvant radiotherapy Current treatment dose: 22 Gy in 11 fractions. Anticipated total dose: 60 Gy in 30 fractions. Concomitant Therapy: N Evaluation of Port Verification Films: PORT films have been reviewed, please see ARIA for details. Changes in medical condition Pain: left shoulder pain, 7/10, stable. No oropharyngeal pain. Secretions/Dryness: ,moderate dysgeusia, mild xerostomia Swallowing Function: no issues Nutrition / G tube: all by mouth. No G tube. Skin: no issues Trach: crusting superior aspect of trachea c/w radiation effect. GI: -N/V: no issues -Bowels: no issues Other: Nutrition Assessment: Weight : 150.6 kg initial Change: 157.9 => 159.1 Objective: Vitals: 07/02/21 1447 BP: (!) 168/95 Patient Position: Sitting Pulse: 84 Resp: 20 Temp: 36.1 ??C (97 ??F) TempSrc: Temporal SpO2: 100% Weight: (!) 159.1 kg (350 lb 12.8 oz) Height: 182.9 cm (6' 0.01) SKIN: no skin erythema HEENT: no mucositis Assessment: Mild toxicity. CTCAE TOXICITY GRADES (see below for bradley): Site Grade Skin 0 Xerostomia 0 Pharyngeal Mucositis 1 Dysphagia 0 Hoarseness 0 TREATMENT RESPONSE: No change Plan: ?? Continue RT per prescription ?? Pain control: none needed at this time ?? Skin: Ptplex cream prn ?? Mucositis: ?? Pain control: see above ?? Oral hygiene consisting of baking soda/salt rinse at least 8 times daily ?? 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 Weight stable, all by mouth [...] PM EST Office Visit Radiation Oncology at [address] [phone] Ag Cruz MD [facility] [place] [address] documented as of this encounter Visit Diagnoses Diagnosis Squamous cell carcinoma of supraglottis Malignant neoplasm of supraglottis documented in this encounter Care Teams Stage Set Designer Relationship Specialty Start Date End Date Weston Tobias PA [address] [place] [address] PCP - General Family Medicine 02/25/21 documented as of this encounter
--- OUTSIDE RECORDS SUMMARY | 2023-12-01 16:00 | XMS_ITS | Encounter Summary ---
[place] [address] Care Team Providers Care Audio Visual Technician Name Role Phone Weston Tobias Primary Care Provider +1- [phone] Encounter Details Date Type Department Care Team (Late st Contact Info) Description 07/02/2021 Orders Only [place] [phone] Gladys Granados RN Aphonia; Larynx cancer Social History Tobacco Use Types [...] PM EST Office Visit Radiation Oncology at [address] [phone] Ag Cruz MD [facility] [place] [address] documented as of this encounter Visit Diagnoses Diagnosis Aphonia Larynx cancer Malignant neoplasm of larynx, unspecified site documented in this encounter Care Teams Audio Visual Technician Relationship Specialty Start Date End Date Weston Tobias PA [address] [place] [address] PCP - General Family Medicine 02/25/21 documented as of this encounter
--- OUTSIDE RECORDS SUMMARY | 2023-12-01 16:00 | XMS_ITS | Encounter Summary ---
Author Organization [facility] Address [facility] [place] [address] Care Team Providers Care Addiction Social Worker Name Role Phone Weston Tobias Primary Care Provider +1- [phone] Encounter Details Date Type Department Care Team (Late st Contact Info) Description 07/09/2021 2:00 PM EDT Office Visit Hematology/Oncology at [address] [phone] Jennifer Cantrell, [facility] DR HEMATOLOGY [place] [address] Throat cancer Social History Tobacco Use Types Packs/Day [...] - Inhaled Oxygen Concentration - - Weight 159.1 kg (350 lb 12.8 oz) 07/09/2021 1:58 PM EDT Height 182.9 cm (6' 0.01) 07/09/2021 1:58 PM ED T Body Mass Index 47.57 07/09/2021 1:58 PM EDT documented in this encounter Progress Notes * Jennifer Cantrell, RD - 07/09/2021 2:00 PM EDT [facility] Nutrition Assessment Progress Note Regige Pena Sr. Diagnosis: Stage III squamous cell carcinoma of the supraglottic larynx, s/p total laryngectomy and bilateral modified neck dissection on 04/29/21 Wt Readings from Last 3 Encounters: 07/09/21 (!) 159.1 kg (350 lb 12.8 oz) 07/02/21 (!) 159.1 kg (350 lb 12.8 oz) 06/25/21 (!) 157.9 kg (348 lb) 06/18/21 (!) 155.9 kg (343 lb 12.8 oz) 06/05/21 (!) 150.6 kg (332 lb) 06/20 Start RT 05/21/21 (!) 148.1 kg (326 lb 9.6 oz) incorrect? 05/15/21 (!) 163.3 kg (360 lb) 04/30/21 (!) 163.3 kg (360 lb)surgery ?? 04/24/21 (!) 158.7 kg (349 lb 14.4 oz) 04/14/21 (!) 160.5 kg (353 lb 14.4 oz) 04/07/21 (!) 160.6 kg (354 lb) Weight stable over the past week, up about 6# from start of RT 3 weeks ago. 28# loss in 3 weeks following surgery, now regaining weight. BMI 47.56 Assessment: Nutrition Screen 07/10/2021 07/02/2021 Reason for assessment Symptom management;High risk diagnosis - Total MST Score - 0 Functional Status 07/10/2021 06/30/2021 Appetite Similar compared to usual intake Similar compared to usual intake Blood glucose levels Controlled - Constipation Grades - - Dysphagia Grades Grade 1: symptomatic, able to eat regular diet - Mucositis/Esophagitis/Stomatitis Grade 1: Erythema of mucosa - Trimus Present - Dentition - - Odynophagia - - Patient reports some pain with swallowing. He is tolerating with tylenol and does not want BMX. Patient reports most foods have no taste, but he is eating nonetheless. Patient says BMs are regular. He has some thick phlegm in throat. BG is well controlled. Diet History: 24 hour recall: bowl of cereal, liverworst sandwich, potato salad for dinner. Patient reports adequate intake of fluids. He is not drinking ONS. He did drink these following surgery but does not care for the taste of them Malnutrition Characteristics 05/22/2021 Insufficient Energy Intake Present Malnutrition in the context of chronic illness Moderate: < 75% estimated intake needs for greater than one month Improved. Medications: Colace prn, lisinopril, tylenol prn, metformin 1000 mg nightly, glipizide ?? Patient started adjuvant RT on 06/20. End date is 07/30. No new labs. Nutrition Diagnosis 07/10/2021 05/22/2021 Problems Swallowing difficulty Inadequate oral intake;Involuntary weight loss;Swallowing difficulty related to Stage III squamous cell carcinoma of the supraglottic larynx, s/p total laryngectomy andbilateral modified neck dissection on 04/29/21 as evidenced by some pain with swallowing. Estimated needs based on current weight of 159.1 [id number] kcals (15-20 kcal/kg) obese 127 g protein (0.8 g/kg) ~2.4-3 L fluid Intervention: * Encouraged adequate intake on a controlled carbohydrate diet. Patient does not care for ONS though did drink these following laryngectomy. * Encouraged soft foods as he is beginning to have some pain with swallowing. Follow Up: 07/16 Note: Please see Hematology/Oncology malnutrition flowsheet for complete RD assessment/documentation documented in this encounter Plan of Treatment Upcoming Encounters Date Type Department Care Team (Late st Contact Info) Description 02/02/2024 3:00 PM EST Office Visit Radiation Oncology at [address] [phone] Ag Cruz MD [facility] [address] [place] [address] documented as of this encounter Visit Diagnoses Diagnosis Throat cancer Malignant neoplasm of pharynx, unspecified documented in this encounter Care Teams Addiction Social Worker Relationship Specialty Start Date End Date Weston Tobias PA [address] [place] [address] PCP - General Family Medicine 02/25/21 documented as of this encounter
--- OUTSIDE RECORDS SUMMARY | 2023-12-01 16:00 | XMS_ITS | Encounter Summary ---
Author Organization [facility] [place] [address] Care Team Providers Care Early Childhood Aide Classroom Name Role Phone Weston Tobias Primary Care Provider +1- [phone] Reason for Visit * Consultation (Routine) - Closed Specialty Diagnoses / Procedures Referred By Jose A paz Referred To Contact Radiation Oncology Diagnoses Squamous cell carcinoma of supraglottis Procedures Simulation for Radiation Therapy Planning Ag Cruz MD [facility] [place] [address] [facility] Rad Onc Office [address] [place] [id number] Referral ID Status Reason Start Date Expiration Date V isits Requested Visits Authorized [id number] Closed Consult, Test & Treat 06/05/2021 09/14/2021 31 31 Encounter Details Date Type Department Care Team (Late st Contact Info) Description 06/05/2021 11:30 AM EDT Ancillary Appointment [place] [phone] Ag Cruz MD [facility] [place] [address] Social History Tobacco Use Types Packs/Day Years [...] place to sleep or slept in a retirement (including now)? Yes 04/07/2021 Sex and Gender Information Value Date Recorded Sex Assigned at Not on file Gender Identity Not on file Sexual Orientation Not on file documented as of this encounter Progress Notes * Leidy Varner RN - 06/05/2021 11:30 AM EDT Section of Radiation Oncology Contrast Information Safety Questions 1. Has the patient ever had an x-ray study before which involved injection of a contrast agent or x-ray dye? yes If yes, did the patient have any reaction to the injection? no If yes, please describe the reaction: N/A 2. Is the patient allergic to any foods, medicines, or other substances? no No Known Allergies 3. Has the patient received any contrast within the past 24 hours? no 4. Does the patient have any procedures scheduled in the next 24 hours? no 5. Does the patient have a history of renal/kidney problems or kidney surgery? no 6. Does the patient have diabetes? yes 7. Does the patient have high blood pressure? yes 8. Is the patient currently being treated for gout? no 9. If the answer to any of the questions #5-8 was yes, has the patient had a creatinine level and eGFR drawn within the past 45 days? yes Lab Results Component Value Date CREATININE 0.49 (L) 05/04/2021 If no, when will it be drawn? 06/03/21 Creatinine 0.8 A creatinine less than or equal to 1.6 and a eGFR of 45 or greater OK to proceed with IV contrast. If the creatinine is greater than 1.6 and the eGFR is less than 45, consult with the ordering provider. If an eGFR is less than 30, IV contrast should not be administered and another contrast agent may be ordered by the provider (Visipaque). 10. Is the patient currently taking any of the following medications? (Actoplus Met, Avandamet, Glucovance, Janumet, Jendadueto, Kombiglyze, Metaglip, PrandiMet, Glugophage, Glumetza, Riomet, Metformin) [x} Yes If yes, when was last dose taken? 06/04/21 at 7pm 9. If patient is on any of the medications in question #10, consult with the ordering provider if the patient needs to stop the medication and if they will require further lab studies. * Ag Cruz MD - 06/05/2021 11:30 AM EDT Simulation was performed in anticipation of radiotherapy for squamous cell carcinoma of the head and neck. The consent was reviewed with the physician and signed by both the patient and physician previously. An intravenous line was placed in anticipation of contrast administration. The patient was then brought to the simulation room and a time-out was performed per protocol. he was then placed onthe simulation table and a custom cushion was constructed for his neck. Scars were marked with radio-opaque markers and a bolus was placed under physician supervision. A custom aquaplast mask was then created. The simulation CT scan was performed with contrast, images were reviewed and approved by the physician, and tattoos were created by the therapy staff as indicated. The patient tolerated theprocedure without difficulty, and was given a time to return to start radiotherapy. documented in this encounter Plan of Treatment Upcoming Encounters Date Type Department Care Team (Late st Contact Info) Description 02/02/2024 3:00 PM EST Office Visit Radiation Oncology at [address] [phone] Ag Cruz MD [facility] [place] [address] Scheduled Orders Name Type Priority Associated Diagnoses Orde r Schedule Simulation for Radiation Therapy Planning Procedures Routine Squamous cell carcinoma of supraglottis Ordered: 05/27/2021 documented as of this encounter Visit Diagnoses Not on filedocumented in this encounter Care Teams Early Childhood Aide Classroom Relationship Specialty Start Date End Date Weston Tobias PA [address] [place] [address] PCP - General Family Medicine 02/25/21 documented as of this encounter
--- OUTSIDE RECORDS SUMMARY | 2023-12-01 16:00 | XMS_ITS | Encounter Summary ---
Author Organization [facility] Address [facility] [place] [address] Care Team Providers Care Table Games Manager Name Role Phone Weston Tobias Primary Care Provider +1- [phone] Encounter Details Date Type Department Care Team (Late st Contact Info) Description 08/20/2021 9:30 AM EDT Office Visit Hematology/Oncology at [address] [phone] Jennifer Cantrell, [facility] DR HEMATOLOGY [place] [address] Status post laryngectomy Social History Tobacco Use Types Packs/Day [...] as of this encounter Progress Notes * Jennifer Cantrell, RD - 08/20/2021 9:30 AM EDT Nutrition Note Spoke with patient briefly today. He completed adjuvant RT for squamous cell carcinoma of the supraglottis 3 weeks ago. He reports his taste is improving slowly and PO intake is adequate. He is taking Metformin and stopped insulin. Patient says BG has been fairly well controlled 100-200 mg/dl. He plans to go back to work at the end of this month. 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 CHERISE Santiago plans to see patient next week on 08/27 to discuss this. Wt Readings from Last 3 Encounters: 08/20/21 (!) 162.6 kg (358 lb 6.4 oz) 08/06/21 (!) 161.8 kg (356 lb 9.6 oz) 07/30/21 (!) 160 kg (352 lb 12.8 oz) 07/23/21 (!) 158.8 kg (350 lb 3.2 oz) ?? 07/16/21 (!) 160.1 kg (353 lb) 07/09/21 (!) 159.1 kg (350 lb 12.8 oz) ?? 07/09/21 (!) 159.1 kg (350 lb 12.8 oz) 07/02/21 (!) 159.1 kg (350 lb 12.8 oz) 06/25/21 (!) 157.9 kg (348 lb) ?? 06/18/21 (!) 155.9 kg (343 lb 12.8 oz) 06/05/21 (!) 150.6 kg (332 lb) 06/20?Start RT 05/21/21 (!) 148.1 kg (326 lb 9.6 oz)??incorrect? 05/15/21 (!) 163.3 kg (360 lb) 04/30/21 (!) 163.3 kg (360 lb)surgery Weight has been stable/trending up for several weeks. Will f/u as needed. documented in this encounter Plan of Treatment Upcoming Encounters Date Type Department Care Team (Late st Contact Info) Description 02/02/2024 3:00 PM EST Office Visit Radiation Oncology at [address] [phone] Ag Cruz MD [facility] DR [place] [address] documented as of this encounter Visit Diagnoses Diagnosis Status post laryngectomy Other postprocedural status documented in this encounter Care Teams Table Games Manager Relationship Specialty Start Date End Date Weston Tobias PA [address] [place] [address] PCP - General Family Medicine 02/25/21 documented as of this encounter
--- OUTSIDE RECORDS SUMMARY | 2023-12-01 16:00 | XMS_ITS | Encounter Summary ---
Author Organization [facility] [place] [address] Care Team Providers Care Second Shift Supervisor Name Role Phone Weston Tobias Primary Care Provider +1- [phone] Encounter Details Date Type Department Care Team (Late st Contact Info) Description 07/30/2021 2:45 PM EDT Notes Only Radiation Oncology at [address] [phone] Valentin Baker MD [address] [place] [address] [place] [address] Social History Tobacco Use Types Packs/Day Years [...] Sign Reading Time Taken Comments Blood Pressure 133/95 07/30/2021 2:47 PM EDT Pulse 83 07/30/2021 2:47 PM EDT Temperature 37 ??C (98.6 ??F) 07/30/2021 2:47 PM EDT Respiratory Rate 18 07/30/2021 2:47 PM EDT Oxygen Saturation 100% 07/30/2021 2:47 PM EDT Inhaled Oxygen Concentration - - Weight 159.7 kg (352 lb) 07/30/2021 2:47 PM EDT Height - - Body Mass Index 47.73 07/30/2021 2:25 PM EDT documented in this encounter Progress Notes * Valentin Baker MD - 07/30/2021 2:45 PM EDT ON TREATMENT VISIT NOTE Reggie Luan Pena Sr. is a 51 y.o. 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 Adjuvant radiotherapy Current treatment dose: 60 Gy in 30 fractions. Anticipated total dose: 60 Gy in 30 fractions. Concomitant Therapy: N Evaluation of Port Verification Films: PORT films have been reviewed, please see JENNIFERA for details. 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 Moderate odynophagia, 3/10, tolerating with Tylenol. Does not need/want BMX. Secretions/Dryness: moderate dysgeusia, mild xerostomia. Swallowing Function: no issues Nutrition / G tube: all by mouth. No G tube. Skin: no issues Trach: crusting superior aspect of trachea c/w radiation effect. GI: -N/V: no issues -Bowels: no issues Other: Nutrition Assessment: Weight : 150.6 kg initial Change: 159.1 => 160.1 => 160.0 Objective: VSS - please see separate nursing note SKIN: + erythema at trach site, small area dry desquamation w crusting HEENT: no mucositis Assessment: Completes RT today with moderate toxicity. Overall tolerating well. CTCAE TOXICITY GRADES (see below for bradley): Site Grade Skin 2 Xerostomia 1 Pharyngeal Mucositis 1 Dysphagia 1 Hoarseness Aphonic TREATMENT RESPONSE: No change Plan: ?? Continue RT per prescription ?? Pain control: ?? OTC medications ?? Skin: Ptplex cream / AP cream prn. ADD Silvadene for small volume desquamation. ?? Mucositis: ?? Pain control: see above ?? Oral hygiene consisting of baking soda/salt rinse at least 8 times daily ?? 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 Weight stable, all by mouth at this time ?? GI: ?? NV: No issues ?? Bowels: No issues ?? FU: per Dr Cruz routine follow-up next week (scheduled 08/06/21 - Reggie is aware) CTCAE v4.03 scales for reference Skin 0 [...] EST Office Visit Radiation Oncology at [address] [phone] [facility] [place] [address] documented as of this encounter Visit Diagnoses Not on filedocumented in this encounter Care Teams Second Shift Supervisor Relationship Specialty Start Date End Date Weston Tobias PA [address] [place] [address] PCP - General Family Medicine 02/25/21 documented as of this encounter
--- OUTSIDE RECORDS SUMMARY | 2023-12-01 16:00 | XMS_ITS | Encounter Summary ---
Author Organization [facility] Address [facility] [place] [address] Care Team Providers Care Drum Barker Operator Name Role Phone Weston Tobias Primary Care Provider +1- [phone] Encounter Details Date Type Department Care Team (Late st Contact Info) Description 07/23/2021 3:30 PM EDT Office Visit Hematology/Oncology at [address] [phone] Jennifer Cantrell, [facility] DR HEMAT[place] [address] Status post laryngectomy Social History Tobacco Use [...] Progress Notes * Jennifer Cantrell, RD - 07/23/2021 3:30 PM EDT Nutrition Note Patient is in week 5 of adjuvant RT for 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 He reports he is havingsome pain with swallowing and only wants to take tylenol for this. He continues to eat soft foods and is now drinking protein shakes as well (he cannot remember which brand). Patient has five RT treatments remaining (final RT 07/30). Patient has been struggling with thick phlegm in throat and taste changes--most foods have no tastebut he continues to eat. Wt Readings from Last 3 Encounters: 07/23/21 (!) 158.8 kg (350 lb 3.2 oz) 07/16/21 (!) 160.1 kg (353 lb) 07/09/21 (!) 159.1 kg (350 lb 12.8 oz) 07/09/21 (!) 159.1 kg (350 lb 12.8 oz) 07/02/21 (!) 159.1 kg (350 lb 12.8 oz) 06/25/21 (!) 157.9 kg (348 lb) ?? 06/18/21 (!) 155.9 kg (343 lb 12.8 oz) 06/05/21 (!) 150.6 kg (332 lb) 5/6?Start RT 05/21/21 (!) 148.1 kg (326 lb 9.6 oz)??incorrect? 05/15/21 (!) 163.3 kg (360 lb) 04/30/21 (!) 163.3 kg (360 lb)surgery 3# loss in past week (1.0% body weight)--not clinically significant 28# loss in 3 weeks following surgery, 18# have been re-gained since then. Plan: * Recommend continue with soft foods as patient's pain with swallowing is increasing. Continue withprotein shakes (Glucerna would be preferred brand if BG is elevated, and Ensure Plus once daily could be consumed if BG is controlled). Will f/u on 07/30 documented in this encounter Plan of Treatment Upcoming Encounters Date Type Department Care Team (Late st Contact Info) Description 02/02/2024 3:00 PM EST Office Visit Radiation Oncology at [address] [phone] [facility] [place] [address] documented as of this encounter Visit Diagnoses Diagnosis Status post laryngectomy Other postprocedural status documented in this encounter Care Teams Drum Barker Operator Relationship Specialty Start Date End Date Weston Tobias PA [address] [place] [address] PCP - General Family Medicine 02/25/21 documented as of this encounter
--- OUTSIDE RECORDS SUMMARY | 2023-12-01 16:00 | XMS_ITS | Encounter Summary ---
[place] [address] Care Team Providers Care Commutator Assembler Name Role Phone Weston Tobias Primary Care Provider +1- [phone] Encounter Details Date Type Department Care Team (Late st Contact Info) Description 10/02/2021 Telephone [place] [phone] Gifty Kelley Social History Tobacco Use Types [...] * Telephone Encounter - Gifty Kelley - 10/02/2021 9:25 AM EDT lvm for Milagros to call and schedule appointment w/SEVERO,SATELLITE TV TECHNICIAN per staff message See below CHERISE Santiago from [facility]. Is asking us to call Milagros (Reggie's daughter) to schedule an appointment with me. ?? Appointment: ?? TEP assessment. ??R49.1 60 min. ?? Please schedule in 4F. ?? Thanks, Fco documented in this encounter Plan of Treatment Upcoming Encounters Date Type Department Care Team (Late Contact Info) Description 02/02/2024 3:00 PM EST Office Visit Radiation Oncology at [address] [phone] Ag Cruz MD [facility] RADIATION ONCOLOGY [place], [place] [id number] documented as of this encounter Visit Diagnoses Not on filedocumented in this encounter Care Teams Commutator Assembler Relationship Specialty Start Date End Date Weston Tobias PA [address] [place] [address] PCP - General Family Medicine 02/25/21 documented as of this encounter
--- OUTSIDE RECORDS SUMMARY | 2023-12-01 16:00 | XMS_ITS | Encounter Summary ---
Author Organization [facility] Address [facility] [place] [address] Care Team Providers Care Russian Rubber Name Role Phone Weston Tobias Primary Care Provider +1- [phone] Encounter Details Date Type Department Care Team (Late st Contact Info) Description 05/21/2021 Notes Only Hematology/Oncology at [address] [phone] Francia Madrid, HEAD ROSE GROWER Social History Tobacco Use Types Packs/Day Years [...] as of this encounter Progress Notes * Francia Madrid SLP - 05/21/2021 11:12 AM EDTSummary: Notes Only Non Treatment Note Patient seen briefly by this HEAD ROSE GROWER per request of RD on this date to provide additional communicationresource, ie mini boogie board device for back up/low tech AAC to utilize prior to upcoming HEAD ROSE GROWER appointment with CHERISE Londono on 06/05, as well as ENT appointment in [place]. Patient currently demonstrates frustration with overall communication ability, however is able to use gestural communication with adequate comprehension by communication partner(s) per observation today; patient denies issues with swallowing per RD, which was also confirmed by patient/patient's daughter today; patient is currently tolerating thin liquids, pureed solids. Patient and daughter are aware of upcoming HEAD ROSE GROWER/ENT appointments for following week. Please note, no charge added for this encounter as patient is being followed by HEAD ROSE GROWER Dept in [place]; further HEAD ROSE GROWER services in [facility] pending outcomes from ENT / HEAD ROSE GROWER visit(s) with medical team in [place], scheduling with HEAD ROSE GROWER in [facility]. Francia Madrid MA CCC-HEAD ROSE GROWER Speech-Language Pathologist documented in this encounter Plan of Treatment Upcoming Encounters Date Type Department Care Team (Late st Contact Info) Description 02/02/2024 3:00 PM EST Office Visit Radiation Oncology at [address] [phone] Ag Cruz MD [facility] [place] [address] documented as of this encounter Visit Diagnoses Not on filedocumented in this encounter Care Teams Russian Rubber Relationship Specialty Start Date End Date Weston Tobias PA [address] [place] [address] PCP - General Family Medicine 02/25/21 documented as of this encounter
--- OUTSIDE RECORDS SUMMARY | 2023-12-01 16:00 | XMS_ITS | Encounter Summary ---
Author Organization [facility] Address [facility] [place] [address] Care Team Providers Care Manager E Commerce Name Role Phone Weston Tobias Primary Care Provider +1- [phone] Encounter Details Date Type Department Care Team (Late st Contact Info) Description 07/16/2021 2:00 PM EDT Office Visit Hematology/Oncology at [address] [phone] Jennifer Cantrell, [facility] [address] [place] [address] Throat cancer Social History Tobacco Use Types [...] - Inhaled Oxygen Concentration - - Weight 160.1 kg (353 lb) 07/16/2021 2:19 PM EDT Height 182.9 cm (6' 0.01) 07/16/2021 2:19 PM ED T Body Mass Index 47.86 07/16/2021 2:19 PM EDT documented in this encounter Progress Notes * Jennifer Cantrell, RD - 07/16/2021 2:00 PM EDT Nutrition Note Patient is in week 5 of adjuvant RT for 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 He reports he is havinga little bit of pain, taking only Tylenol for this as of now. He says foods do not really have any taste. He is beginning to feel more tired. Wt Readings from Last 3 Encounters: 07/16/21 (!) 160.1 kg (353 lb) 07/09/21 [...] 04/30/21 (!) 163.3 kg (360 lb)surgery Weight stable for the past two weeks. Patient has regained some of 28# lost in 3 weeks following surgery. Plan: * Recommend soft foods given pain with swallowing. Discussed avoiding foods with harder textures. * Patient does not really care for ONS, though he has drank them before following surgery and does still have some at home (unsure of brand). Discussed that these can be helpful if swallowing becomesmore painful. Will f/u next week documented in this encounter Plan of Treatment Upcoming Encounters Date Type Department Care Team (Late st Contact Info) Description 02/02/2024 3:00 PM EST Office Visit Radiation Oncology at [address] [phone] Ag Cruz MD [facility] [place] [address] documented as of this encounter Visit Diagnoses Diagnosis Throat cancer Malignant neoplasm of pharynx, unspecified documented in this encounter Care Teams Manager E Commerce Relationship Specialty Start Date End Date Weston Tobias PA [address] [place] [address] PCP - General Family Medicine 02/25/21 documented as of this encounter
--- OUTSIDE RECORDS SUMMARY | 2023-12-01 16:00 | XMS_ITS | Encounter Summary ---
Author Organization [facility] Address [facility] [place] [address] Care Team Providers Care High Lift Mule Operator Name Role Phone Weston Tobias Primary Care Provider +1- [phone] Encounter Details Date Type Department Care Team (Late st Contact Info) Description 09/24/2021 9:00 AM EDT Office Visit Hematology/Oncology at [address] [phone] Francia Madrid SLP Throat cancer; Squamous cell carcinoma of supraglottis; Dysphonia; Status post laryngectomy; Dysphagia, unspecified type Social History Tobacco Use [...] of this encounter Progress Notes * Francia Madrid, LPN CMA - 09/24/2021 9:00 AM Chanel: LPN CMA Progress Note Speech-Language Pathology Progress Note 09/24/2021 Total Treatment Time: 50 min Interval History: Per chart review as of 09/18/21, patient has recent concerns regarding new lump growing on the back of his neck that is red and hurts. He also is coughing badly and not feeling well at all. Milagros saidhe is had pain in his jaw and his chest and neck. Patient advised to follow up with PCP until visit with Dr. Cruz on 10/01. S: Pt states he feels like things still hurt, motions to submandibular area and reports this area is still swollen, continues to rate this at 6/10 pain, denies pain near stoma. Managing pain with Tylenol, reports he is just dealing with it. Reports he feels lump on back of his neck is just a zit, and did not wish to have to this inspected during visit today, denies painon back of neck at this time. Reports he feels like he had a cold, lots of phlegm, coughing has been getting worse - felt like Igot run over - reports he feels a little better today relative to last week. Reports he had taken COVID19 test x2, both negative. Has been 'brushing/flushing' his TEP multiple times/day as instructed, more frequently since past week given increase in phlegm. Reports less coughing over past few days. Reports coughing gets better throughout the day, but feels like he can't talk with his HME this morning, having difficulties with phonating for longer phrases as of this AM, reports he feels his voice sounds 'raspy'; reports he was able to talk with HME allof last week, but unable today despite changing the filter/cleaning his HME this AM. Trialed easy onset voicing/less pressure without change this date. Reports he feels like there is still something there plugging the area, but also feels like he may need to spend more time on cleaning it later this morning as he was rushing a bit to get to appointment. Patient able to demonstrate improved phonation control with increased breath groups; reports main difficulty with phonation is when he is occluding HME this AM. No overt leakage appears when assessed with thin liquid trial and visualization of TEP with light source - Discussed recommendation for follow up with LPN CMA / ENT at [facility] for further assessment if coughing does not resolve to typical baseline within next few days or if symptoms persist/become worse; patient may be appropriate for remeasuring/refitting of prosthesis. Pt reports his taste and smell are [...] to bring in trial devices for subsequent session; encouraged patient to continue brush/flush method, attempt to clear phlegmand take breaks in between given amount of effort required. Patient is likely due for re-assessment/ replacement of TEP prosthesis as this was originally placed in April of this year. Discussed possibility of lymphedema therapy, will discuss with medical team during HNC meeting thisdate as patient may need referral to local certified lymphedema therapist. O: Pt. 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 Patient reports he does not prefer specialized nighttime HME after trialing this while sleeping since last visit. Patient also demonstrates adequate comprehension re: application of adhesive housing and HME filter. Reviewed rationale for consistent use of HME including while sleeping and available d evice options via [employer]. Re: hands-free HME - Previously reviewed options [...] - Has connected with caregiver of former laryngectomee - [facility] ALVARADO Jd Dysphagia Inventory [MDADI], a validated and reliable self- administered questionnaire designed specifically for evaluating the impact of dysphagia on the QOL of patients with head and neck cancer (Peri et al 2001), was administered on 08/27/21: Global Score: 2/5 Scores range from 1 (Extremely low functioning) to 5 (Extremely high functioning) Composite Score: 64.2 Scores range from 20 (Extremely low functioning) to 100 (High functioning) Subscales (mean) Physical 3 Emotional 3.3 Functional 3.3 Scores range from 1 (Extremely low functioning) to 5 (Extremely high functioning) A: Pt has been utilizing his TEP for communication successfully since last visit with LPN CMA at [facility], hasrecently been experiencing some issue with phonation at longer phrase level(s) given suspected mucous plugging/need for continued clearance in context of recent suspected cold (patinet now feeling much better relative to 09/18/21, negative for COVID19); patient has transferred his LPN CMA care to this clinician due to travel, however if concerns with TEP fit and/or leakage are present, recommend patient follow up with ENT/LPN CMA team (Fco aBll, LPN CMA) at [facility], which was dicussed with patient. Patient is unsure of exact trial HME supplies he has at home. Patient was again asked to bring his supplies with him to his next appointment. P: ?? Speech to follow-up within 1 week. ?? Pt is in agreement with plan of treatment Francia Madrid MA CCC-LPN CMA Speech-Language Pathologist documented in this encounter Plan of Treatment Upcoming Encounters Date Type Department Care Team (Late st Contact Info) Description 02/02/2024 3:00 PM EST Office Visit Radiation Oncology at [address] [phone] Ag Cruz MD [facility] DR [place] [address] documented as of this encounter Visit Diagnoses Diagnosis Throat cancer Malignant neoplasm of pharynx, unspecified Squamous cell carcinoma of supraglottis Malignant neoplasm of supraglottis Dysphonia Status post laryngectomy Other postprocedural status Dysphagia, unspecified type documented in this encounter Care Teams High Lift Mule Operator Relationship Specialty Start Date End Date Weston Tobias PA [address] [place] [address] PCP - General Family Medicine 02/25/21 documented as of this encounter
--- OUTSIDE RECORDS SUMMARY | 2023-12-01 16:00 | XMS_ITS | Encounter Summary ---
Author Organization [facility] Address [facility] [address] [place] [address] Care Team Providers Care Ornamental Metalwork Designer Name Role Phone Weston Tobias Primary Care Provider +1- [phone] Encounter Details Date Type Department Care Team (Late st Contact Info) Description 07/09/2021 2:45 PM EDT Office Visit Radiation Oncology at [address] [phone] Ag Cruz MD [facility] [place] [address] Squamous cell carcinoma of supraglottis Social History [...] place to sleep or slept in a intermediate (including now)? Yes 04/07/2021 Sex and Gender Information Value Date Recorded Sex Assigned at Not on file Gender Identity Not on file Sexual Orientation Not on file documented as of this encounter Last Filed Vital Signs Vital Sign Reading Time Taken Comments Blood Pressure 130/83 07/09/2021 3:11 PM EDT Pulse 83 07/09/2021 3:11 PM EDT Temperature - - Respiratory Rate 18 07/09/2021 3:11 PM EDT Oxygen Saturation 100% 07/09/2021 3:11 PM EDT Inhaled Oxygen Concentration - - Weight - - Height - - Body Mass Index - - documented in this encounter Progress Notes * Ag Cruz MD - 07/09/2021 2:45 PM EDT ON TREATMENT VISIT NOTE Reggie Pena . is a 51 y.o. 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 Adjuvant radiotherapy Current treatment dose: 32 Gy in 16 fractions. Anticipated total dose: 60 Gy in 30 fractions. Concomitant Therapy: N Evaluation of Port Verification Films: PORT films have been reviewed, please see ARIA for details. Changes in medical condition Pain: left shoulder pain, 7/10, stable. Increasing odynophagia, tolerating with Tylenol. Does not want BMX. Secretions/Dryness: moderate dysgeusia, mild xerostomia Swallowing Function: no issues Nutrition / G tube: all by mouth. No G tube. Skin: no issues Trach: crusting superior aspect of trachea c/w radiation effect. GI: -N/V: no issues -Bowels: no issues Other: Nutrition Assessment: Weight : 150.6 kg initial Change: 157.9 => 159.1 Objective: Vitals: 07/09/21 1511 BP: 130/83 Patient Position: Sitting Pulse: 83 Resp: 18 TempSrc: Temporal SpO2: 100% SKIN: mild skin erythema around trach, crusting and mild bleeding inside tracheostomy HEENT: no mucositis Assessment: Mild toxicity. CTCAE TOXICITY GRADES (see below for bradley): Site Grade Skin 1 Xerostomia 1 Pharyngeal Mucositis 1 Dysphagia 1 Hoarseness Aphonic TREATMENT RESPONSE: No change Plan: ?? Continue RT per prescription ?? Pain control: ?? OTC medications ?? Skin: Ptplex cream / AP cream prn ?? Mucositis: ?? Pain control: see above ?? Oral hygiene consisting of baking soda/salt rinse at least 8 times daily ?? Alimentation: fish filleter following ?? Weight stable, all by mouth [...] PM EST Office Visit Radiation Oncology at [address] [phone] Ag Cruz MD [facility] [place] [address] documented as of this encounter Visit Diagnoses Diagnosis Squamous cell carcinoma of supraglottis Malignant neoplasm of supraglottis documented in this encounter Care Teams Ornamental Metalwork Designer Relationship Specialty Start Date End Date Weston Tobias PA [address] [place] [address] PCP - General Family Medicine 02/25/21 documented as of this encounter
--- OUTSIDE RECORDS SUMMARY | 2023-12-01 16:00 | XMS_ITS | Encounter Summary ---
Author Organization [facility] Address [facility] [address] [place] [address] Care Team Providers Care Roustabout Supervisor Name Role Phone Weston Tobias Primary Care Provider +1- [phone] Encounter Details Date Type Department Care Team (Late st Contact Info) Description 07/16/2021 2:45 PM EDT Office Visit Radiation Oncology at [address] [phone] Ag Cruz MD [facility] [place] [address] Squamous cell carcinoma of supraglottis Social History [...] Sign Reading Time Taken Comments Blood Pressure 127/102 07/16/2021 2:54 PM EDT Pulse 85 07/16/2021 2:54 PM EDT Temperature 37.1 ??C (98.8 ??F) 07/16/2021 2:54 PM ED T Respiratory Rate 18 07/16/2021 2:54 PM EDT Oxygen Saturation 100% 07/16/2021 2:54 PM EDT Inhaled Oxygen Concentration - - Weight - - Height - - Body Mass Index - - documented in this encounter Progress Notes * Ag Cruz MD - 07/16/2021 2:45 PM EDT ON TREATMENT VISIT NOTE Reggie Roland Jean Ayala is a 51 y.o. 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 Adjuvant radiotherapy Current treatment dose: 40 Gy in 20 fractions. Anticipated total dose: 60 Gy in [...] 150.6 kg initial Change: 159.1 => 160.1 Objective: There were no vitals filed for this visit. SKIN: brisk skin erythema around trach, crusting and mild bleeding inside tracheostomy. Small volume desquamation. HEENT: no mucositis Assessment: Mild toxicity. CTCAE [...] at least 8 times daily ?? Alimentation: clerk checker following ?? Weight stable, all by mouth [...] PM EST Office Visit Radiation Oncology at [address] [phone] Ag Cruz MD [facility] [place] [address] documented as of this encounter Visit Diagnoses Diagnosis Squamous cell carcinoma of supraglottis Malignant neoplasm of supraglottis documented in this encounter Care Teams Roustabout Supervisor Relationship Specialty Start Date End Date Weston Tobias PA [address] [place] [address] PCP - General Family Medicine 02/25/21 documented as of this encounter
--- OUTSIDE RECORDS SUMMARY | 2023-12-01 16:00 | XMS_ITS | Encounter Summary ---
Author Organization [facility] Address [facility] [place] [address] Care Team Providers Care Client Professional Name Role Phone Weston Tobias Primary Care Provider +1- [phone] Encounter Details Date Type Department Care Team (Late st Contact Info) Description 09/10/2021 Telephone Hematology/Oncology at [address] [phone] Francia Madrid, SUPERINTENDENT JOB Social History Tobacco Use Types Packs/Day Years [...] encounter Miscellaneous Notes * Telephone Encounter - Francia Madrid SLP - 09/10/2021 10:46 AM EDTSummary: SUPERINTENDENT JOB Communication Note SUPERINTENDENT JOB Communication Note 09/10/21 Re: calling [employer] to order HME and flexiderm, oval adhesive housing - SUPERINTENDENT JOB spoke with Milagros on 09/10 re: progress through [employer] and ordering respiratory supplies; Milagros reports humidification and suction devices have been approved, Pt is waiting to hear back from [employer] re: hands free device and insurance coverage. Milagros reports Pt has been wearing his HME throughout the day more frequently since most recent SUPERINTENDENT JOB visit and has been socializing outside of home more as well. Francia Madrid MA CCC-SUPERINTENDENT JOB Speech-Language Pathologist documented in this encounter Plan of Treatment Upcoming Encounters Date Type Department Care Team (Late st Contact Info) Description 02/02/2024 3:00 PM EST Office Visit Radiation Oncology at [address] [phone] Ag Cruz MD [facility] [place] [address] documented as of this encounter Visit Diagnoses Not on filedocumented in this encounter Care Teams Client Professional Relationship Specialty Start Date End Date Weston Tobias PA [address] [place] [address] PCP - General Family Medicine 02/25/21 documented as of this encounter
--- OUTSIDE RECORDS SUMMARY | 2023-12-01 16:00 | XMS_ITS | Encounter Summary ---
Author Organization [facility] Address [facility] [address] [place] [address] Care Team Providers Care Auto Vinyl Top Installer Name Role Phone Weston Tobias Primary Care Provider +1- [phone] Encounter Details Date Type Department Care Team (Late st Contact Info) Description 07/23/2021 2:45 PM EDT Office Visit Radiation Oncology at [address] [phone] Ag Cruz MD [facility] [place] [address] Squamous cell carcinoma of supraglottis Social History [...] Sign Reading Time Taken Comments Blood Pressure 137/93 07/23/2021 3:07 PM EDT Pulse 86 07/23/2021 3:07 PM EDT Temperature 36.7 ??C (98.1 ??F) 07/23/2021 3 :07 PM EDT Respiratory Rate 18 07/23/2021 3:07 PM EDT Oxygen Saturation 100% 07/23/2021 3:0 7 PM EDT Inhaled Oxygen Concentration - - Weight 158.8 kg (350 lb 3.2 oz) 022 3:07 PM EDT with shoes Height - - Body Mass Index 47.49 07/16/2021 2:19 PM EDT documented in this encounter Progress Notes * Ag Cruz MD - 07/23/2021 2:45 PM EDT ON TREATMENT VISIT NOTE Reggie Luan Pena Sr. is a 51 y.o. 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 Adjuvant radiotherapy Current treatment dose: 50 Gy in 25 fractions. Anticipated total dose: 60 Gy in 30 fractions. Concomitant Therapy: N Evaluation of Port Verification Films: PORT films have been reviewed, please see ARIA for details. Changes in medical condition Pain: left shoulder pain, 7/10, stable. Moderate odynophagia, 3/10, tolerating with Tylenol. Does not want BMX. Secretions/Dryness: moderate dysgeusia, mild xerostomia. Swallowing [...] this visit. SKIN: brisk skin erythema around trach with some desquamation, crusting and mild bleeding inside tracheostomy. HEENT: no mucositis Assessment: Moderate toxicity. Overall tolerating well. CTCAE TOXICITY GRADES [...] at least 8 times daily ?? Alimentation: straw hat washer operator following ?? Weight stable, all by mouth at this time ?? GI: ?? NV: No issues ?? Bowels: No issues ?? FU: I will see him in routine follow up CTCAE v4.03 scales for reference Skin 0 [...] PM EST Office Visit Radiation Oncology at [address] [phone] Ag Cruz MD [facility] [address] documented as of this encounter Visit Diagnoses Diagnosis Squamous cell carcinoma of supraglottis Malignant neoplasm of supraglottis documented in this encounter Care Teams Auto Vinyl Top Installer Relationship Specialty Start Date End Date Weston Tobias PA [address] [place] [address] PCP - General Family Medicine 02/25/21 documented as of this encounter
--- OUTSIDE RECORDS SUMMARY | 2023-12-01 16:00 | XMS_ITS | Encounter Summary ---
[place] [address] Care Team Providers Care Stabber Name Role Phone Weston Tobias Primary Care Provider +1- [phone] Reason for Referral * Diagnostic Test (Routine) - Closed Specialty Diagnoses / Procedures Referred By Contac Referred To Contact Radiology Diagnoses Squamous cell carcinoma of supraglottis Procedures CT Chest w Contrast CT Chest wo Contrast (Generic) Ag Cruz MD [facility] [place] [address] [facility] [place] [address] Referral ID Status Reason Start Date Expiration Date V isits Requested Visits Authorized [id number] Closed Specialty Service Requested 09/23/2021 03/26/2023 1 1 * Diagnostic Test (Routine) - Closed Specialty Diagnoses / Procedures Referred By Contdavid t Referred To Contact Radiology Diagnoses Squamous cell carcinoma of supraglottis Procedures CT Neck Soft Tissue w Contrast (Generic) Ag Cruz MD [facility] [place] [address] [facility] [place] [address] Referral ID Status Reason Start Date Expiration Date V isits Requested Visits Authorized [id number] Closed Specialty Service Requested 09/23/2021 03/26/2023 1 1 Reason for Visit * Diagnostic Test (Routine) - Closed Specialty Diagnoses / Procedures Referred By Contac t Referred To Contact Radiology Diagnoses Squamous cell carcinoma of supraglottis Procedures CT Neck Soft Tissue w Contrast (Generic) Ag Cruz MD [facility] [place] [address] [facility] [place] [address] Referral ID Status Reason Start Date Expiration Date V isits Requested Visits Authorized [id number] Closed Specialty Service Requested 09/23/2021 03/26/2023 1 1 Encounter Details Date Type Department Care Team (Latest Contact Info) Description 10/30/2021 7:50 AM EDT - 10/30/2021 11:59 PM EDT Hospital [place] [address] Ag Cruz MD [facility] [place] [address] Squamous cell carcinoma of supraglottis [...] Sig Dispensed Refills Start Date End Date silver sulfADIAZINE (Silvadene) 1 % Cream Apply [...] by mouth 2 times daily (before meals). gabapentin (Neurontin) 300 mg Capsule TAKE 1 CAPSULE BY MOUTH ONCE DAILY AT NIGHT 10/27/2021 12/11/2021 sulfamethoxazole-trim ethoprim DS (Bactrim DS) 800-160 mg Tablet Take 1 tablet by mouth 2 times daily. 09/26/2021 12/11/2021 lisinopriL (Zestril) 10 mg Tablet Take 1 tablet by mouth daily. 30 tablet 12 05/07/2021 12/11/2021 metFORMIN (GLUCOPHAGE) 1,000 mg TabletIndications:typ e 2 diabetes mellitus Take 1,000 mg by mouth 2 times daily. Indications: type 2 diabetes mellitus 06/09/2023 documented as of this encounter Plan of Treatment Upcoming Encounters Date Type Department Care Team (Late st Contact Info) Description 02/02/2024 3:00 PM EST Office Visit Radiation Oncology at [address] [address] Ag Cruz MD [facility] [place] [address] documented as of this encounter Procedures Procedure Name Priority Date/Time Associated Diagnosis Comments CT CHEST W CONTRAST Routine 10/30/2021 8:38 AM EDT Squamous cell carcinoma of supraglottis CT NECK SOFT TISSUE W CONTRAST Routine 10/30/2021 8:38 AM EDT Squamous cell carcinoma of supraglottis documented in this encounter Results * CT Chest w [...] who have questions please contact the health home care nurse that requested your imaging first. ? Electronically signed by: Jaimie Delgado MD, [facility] ([phone]), at 10/30/2021 10:44 AM Narrative 10/30/2021 10:44 AM EDT EXAMINATION: CT [...] patients who have questions please contactthe health home care nurse that requested your imaging first. Electronically signed by: Jaimie Delgado MD, [facility]([phone]), at 10/30/2021 10:44 AM Ag Cruz MD [...] who have questions please contact the health home care nurse that requested your imaging first. ? Narrative 10/30/2021 10:02 AM EDT EXAMINATION: CT [...] patients who have questions please contactthe health home care nurse that requested your imaging first. Ag Cruz MD IM CT ORDERABLES documented in this encounter Visit Diagnoses Diagnosis Squamous cell carcinoma of supraglottis Malignant neoplasm of supraglottis documented in this encounter Administered Medications Inactive Administered Medications - up to 3 most recent administrations Medication Order MAR Action Action Date Dose Rate Site iohexoL (Omnipaque) (350 mg/mL) solution 0-200 mL 0-200 mL, Intravenous, ONCE PRN, 1 dose, Starting on Christina 10/30/21 at 0838, Until Christina 10/30/21 at 0838, Per Protocol, Warning Vesicant/Irritant Medication , Radiology Contrast, Routine Given 10/30/2021 8:38 AM EDT 110 mLs documented in this encounter Care Teams Stabber Relationship Specialty Start Date End Date Weston Tobias PA [address] [place] [address] PCP - General Family Medicine 02/25/21 documented as of this encounter
--- OUTSIDE RECORDS SUMMARY | 2023-12-01 16:00 | XMS_ITS | Encounter Summary ---
Author Organization [facility] Address [facility] [address] [place] [address] Care Team Providers Care Associate Professor Of Literature Name Role Phone Weston Tobias Primary Care Provider +1- [phone] Encounter Details Date Type Department Care Team (Late st Contact Info) Description 08/20/2021 9:00 AM EDT Office Visit Radiation Oncology at [address] [address] Ag Cruz MD [facility] [place] [address] Squamous cell carcinoma of supraglottis Social History [...] Sign Reading Time Taken Comments Blood Pressure 147/105 08/20/2021 9:07 AM EDT Pulse 100 08/20/2021 9:07 AM EDT Temperature 36.4 ??C (97.5 ??F) 08/20/2021 9 :07 AM EDT Respiratory Rate 20 08/20/2021 9:07 AM EDT Oxygen Saturation 100% 08/20/2021 9:0 7 AM EDT Inhaled Oxygen Concentration - - Weight 162.6 kg (358 lb 6.4 oz) 022 9:07 AM EDT with shoes Height - - Body Mass Index 48.6 07/30/2021 2:25 PM EDT documented in this encounter Progress Notes * Ag Cruz MD - 08/20/2021 9:00 AM EDT FOLLOW UP VISIT NOTE [...] Gy in 30 fractions. Concomitant Therapy: N Changes in medical condition Pain: left shoulder pain, 3/10, stable. Helen-stomal pain is 2/10. Occasional throat pain. Taking Tylenol, 500 mg QID. Secretions/Dryness: moderate dysgeusia, mild xerostomia. Swallowing Function: some foods get stuck with bigger bites. Nutrition / G tube: all by mouth. No G tube. Skin: occasional burning. Trach: crusting superior aspect of trachea c/w radiation effect. GI: -N/V: no issues -Bowels: no issues Other: Nutrition Assessment: Weight : 150.6 kg initial Change: 160.1 => 161.8 Objective: There were no vitals filed for this visit. SKIN: mild skin erythema around trach with some desquamation; crusting inside tracheostomy. HEENT: no mucositis Assessment: Moderate toxicity. Overall improving. TSH was upper limit of normal on labs from PCP. Discussed initiation of synthroid, he wished to wait, will re-check in 2 months. CTCAE TOXICITY GRADES (see below for bradley): Site Grade Skin 2 Xerostomia 1 Pharyngeal Mucositis 1 Dysphagia 1 Hoarseness Aphonic Plan: ?? Pain control: ?? OTC medications ?? Skin: Ptplex cream / AP cream prn. ?? Mucositis: ?? Pain control: see above ?? Oral hygiene consisting of baking soda/salt rinse at least 8 times daily ?? Alimentation: nylon winder following ?? Weight stable, all by mouth [...] PM EST Office Visit Radiation Oncology at [address] [address] Ag Cruz MD [facility] [place] [address] documented as of this encounter Visit Diagnoses Diagnosis Squamous cell carcinoma of supraglottis Malignant neoplasm of supraglottis documented in this encounter Care Teams Associate Professor Of Literature Relationship Specialty Start Date End Date Weston Tobias PA [address] [place] [address] PCP - General Family Medicine 02/25/21 documented as of this encounter
--- OUTSIDE RECORDS SUMMARY | 2023-12-01 16:00 | XMS_ITS | Encounter Summary ---
Author Organization [facility] [place] [address] Care Team Providers Care Melt House Supervisor Name Role Phone Weston Tobias Primary Care Provider +1- [phone] Reason for Referral * Physical Therapy (Routine) - Closed Specialty Diagnoses / Procedures Referred By Contdavid t Referred To Contact Physical Therapy Diagnoses Larynx cancer Status post neck dissection Mat Harvey MD [facility] [place] [address] [facility] [address] [place] [address] Referral ID Status Reason Start Date Expiration Date V isits Requested Visits Authorized [id number] Closed Evaluate and Treat 06/05/2021 12/02/2021 12 12 Encounter Details Date Type Department Care Team (Late st Contact Info) Description 06/05/2021 10:00 AM EDT Office [place] [address] Mat Harvey MD [facility] [place] [address] Larynx cancer; Status post neck dissection Social History Tobacco Use Types Packs/Day Years [...] - Inhaled Oxygen Concentration - - Weight 150.6 kg (332 lb) 06/05/2021 9:55 AM EDT Height 182.9 cm (6') 06/05/2021 9:55 AM EDT Body Mass Index 45.03 06/05/2021 9:55 AM EDT documented in this encounter Progress Notes * Mat Harvey MD - 06/05/2021 10:00 AM EDT [facility] OTOLARYNGOLOGY BRIEF FOLLOW UP NOTE Reggie Pena Sr. is a 51 y.o. male followed for: Primary: Larynx Stage: T3N0M0 Treatment: 04/29/2021 - Total laryngectomy, partial pharyngectomy, bilateral neck dissection Radiation therapy to start today He is doing well. Eating, started using his TEP today and is happy with voice results. He is complaining of shoulder weakness, especially on the left. On exam, stoma is patent, TEP is patent, decreased ROM bilaterally in the shoulders. ASSESSMENT/RECOMMENDATIONS Stable exam, completely healed. 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 Pena's care. MAT HARVEY MD 06/05/2021 documented in this encounter Plan of Treatment Upcoming Encounters Date Type Department Care Team (Late st Contact Info) Description 02/02/2024 3:00 PM EST Office Visit Radiation Oncology at [address] [address] Ag Cruz MD [facility] [place] [address] Scheduled Referrals Name Type Priority Associated Diagnoses Orde r Schedule Referral to Physical Therapy Outpatient Referral Routine Larynx cancer Status post neck dissection Ordered: 06/05/2021 documented as of this encounter Visit Diagnoses Diagnosis Larynx cancer Malignant neoplasm of larynx, unspecified site Status post neck dissection documented in this encounter Care Teams Melt House Supervisor Relationship Specialty Start Date End Date Weston Tobias PA [address] [place] [address] PCP - General Family Medicine 02/25/21 documented as of this encounter
--- OUTSIDE RECORDS SUMMARY | 2023-12-01 16:00 | XMS_ITS | Encounter Summary ---
Author Organization [facility] Address [facility] [place] [address] Care Team Providers Care Cvor Nurse Name Role Phone Weston Tobias Primary Care Provider +1- [phone] Encounter Details Date Type Department Care Team (Late st Contact Info) Description 06/27/2021 3:30 PM EDT Office Visit Hematology/Oncology at [address] [address] Jennifer Cantrell, [facility] DR HEMATOLOGY [place] [address] Status post laryngectomy Social History Tobacco Use [...] Progress Notes * Jennifer Cantrell, RD - 06/27/2021 3:30 PM EDT [facility] Nutrition Assessment Progress Note Reggie Pena Sr. 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 05/15/21 (!) 163.3 kg (360 lb) 04/30/21 (!) 163.3 kg (360 lb)surgery 04/24/21 (!) 158.7 kg (349 lb 14.4 oz) 04/14/21 (!) 160.5 kg (353 lb 14.4 oz) 04/07/21 (!) 160.6 kg (354 lb) BMI 47.2 5# gain in past week 28# loss in 3 weeks following surgery, now regaining weight. Assessment: Nutrition Screen 06/30/2021 05/22/2021 Reason for assessment Symptom management;High risk diagnosis Symptom management;High risk diagnosis;Unintentional weight loss Total MST Score - - Functional Status 06/30/2021 05/22/2021 Appetite Similar compared to usual intake Reduced compared to usual intake Blood glucose levels - Controlled Constipation Grades - Grade 1: Occasional/intermittent symptoms, occasional use of stool softeners,laxatives, dietary modification or enema Dysphagia Grades - Grade 2: symptomatic and altered eating/ swallowing Dentition - Edentulous Odynophagia - - Patient is in second week of adjuvant RT. He reports he is eating everything and re-gaining some of weight loss since surgery. Patient is communicating with TEP s/p total laryngectomy. Patient has T2DM. We did not discuss BG control today. Diet History Patient reports he is eating everything, including pandey's pie, balogne sandwiches, mini wheats(soaked in milk). He drinks gatorade, water, iced tea. He is not drinking protein shakes but was having some following surgery. He is being followed by Fco Ball, PULLEY WORKER. Medications: Colace prn, lisinopril, tylenol prn, metformin 1000 mg nightly, glipizide Patient started adjuvant RT on 06/20. Nutrition Diagnosis 05/22/2021 04/28/2021 Problems Inadequate oral intake;Involuntary weight loss;Swallowing difficulty Swallowing difficulty r/t laryngectomy as evidenced by 5# gain in past week 28# loss in 3 weeks following surgery, now regaining weight. Estimated needs based on 157.9 k kcals (20 kcal/kg) obese 126 g protein (0.8g/kg) Minimum 2 L fluid Intervention: * Encouraged adequate intake to maintain weight during RT. * Discussed need for soft foods and/or protein shakes if having pain or difficulty eating during treatment. Follow Up: On 07/02 Note: Please see Hematology/Oncology malnutrition flowsheet for complete RD assessment/documentation documented in this encounter Plan of Treatment Upcoming Encounters Date Type Department Care Team (Late st Contact Info) Description 02/02/2024 3:00 PM EST Office Visit Radiation Oncology at [address] [address] Ag Cruz MD [facility] [place] [address] documented as of this encounter Visit Diagnoses Diagnosis Status post laryngectomy Other postprocedural status documented in this encounter Care Teams Cvor Nurse Relationship Specialty Start Date End Date Weston Toibas PA [address] [place] [address] PCP - General Family Medicine 02/25/21 documented as of this encounter
--- OUTSIDE RECORDS SUMMARY | 2023-12-01 16:00 | XMS_ITS | Encounter Summary ---
Author Organization [facility] Address [facility] [place] [address] Care Team Providers Care Housing Liaison Name Role Phone Weston Tobias Primary Care Provider +1- [phone] Encounter Details Date Type Department Care Team (Late st Contact Info) Description 09/18/2021 Telephone Radiation Oncology at [address] [address] Raeann Jarrett, RN Social History Tobacco Use Types Packs/Day [...] encounter Miscellaneous Notes * Telephone Encounter - Raeann Jarrett RN - 09/18/2021 4:05 PM EDT Radiation Oncology Nurse Telephone Note [facility] [place], [place] ----- Message from Sherri Yi sent at 09/18/2021 9:05 AM EDT ----- Regarding: Not Felling Well We called to reschedule Reggie as is out next week, but Reggie has a new lump growing on the back of his neck that is red and hurts. He also is coughing badly and not feeling well at all. Milagros said he is had pain in his jaw and his chest and neck. So they want him to be seen as soon as wecan and did not really want to move his FUV with Nancy. Can nursing give Milagros a call back please. Thanks IeshaAndres Telephone call to [phone] (L) ( the only number listed ) and it went to Milagros's voice mail. I explained in my message that I called to speak with him to triage his symptoms and to call back at [phone] at [facility]. I also recommended that he see his PCP for these symptoms since he is not able to see Dr Cruz until 10/01 when he return from vacation. If his symptoms become more severe or urgent, he should go tolocal ER for immediate care. documented in this encounter Plan of Treatment Upcoming Encounters Date Type Department Care Team (Late st Contact Info) Description 02/02/2024 3:00 PM EST Office Visit Radiation Oncology at [address] [address] [facility] [place] [address] documented as of this encounter Visit Diagnoses Not on filedocumented in this encounter Care Teams Housing Liaison Relationship Specialty Start Date End Date Weston Tobias PA [address] [place] [address] PCP - General Family Medicine 02/25/21 documented as of this encounter
--- OUTSIDE RECORDS SUMMARY | 2023-12-01 16:00 | XMS_ITS | Encounter Summary ---
Author Organization [facility] Address [facility] [place] [address] Care Team Providers Care Supervisor [employer] Name Role Phone Weston Tobias Primary Care Provider +1- [phone] Encounter Details Date Type Department Care Team (Late st Contact Info) Description 07/02/2021 3:00 PM EDT Office Visit Hematology/Oncology at [address] [address] Jennifer Cantrell, [facility] [address] [place] [address] Throat cancer Social History Tobacco Use Types [...] of this encounter Progress Notes * Jennifer Cantrell RD - 07/02/2021 3:00 PM EDT Nutrition Note Unable to see patient in clinic today. Will f/u next week on 07/09. documented in this encounter Plan of Treatment Upcoming Encounters Date Type Department Care Team (Late st Contact Info) Description 02/02/2024 3:00 PM EST Office Visit Radiation Oncology at [address] [phone] Ag Cruz MD [facility] [place] [address] documented as of this encounter Visit Diagnoses Diagnosis Throat cancer Malignant neoplasm of pharynx, unspecified documented in this encounter Care Teams Supervisor [employer] Relationship Specialty Start Date End Date Weston Tobias PA [address] [place] [address] PCP - General Family Medicine 02/25/21 documented as of this encounter
--- OUTSIDE RECORDS SUMMARY | 2023-12-01 16:00 | XMS_ITS | Encounter Summary ---
Author Organization [facility] [address] Care Team Providers Care Contract Modeler Name Role Phone Weston Tobias Primary Care Provider +1- [phone] Encounter Details Date Type Department Care Team (Late st Contact Info) Description 07/30/2021 Notes Only [place] [address] Ag Cruz MD [facility] [place] [address] Social History Tobacco Use Types Packs/Day Years [...] Progress Notes * Ag Cruz MD - 07/30/2021 11:59 PM EDT Images from the original note were not included. Radiation Oncology Treatment Summary PATIENT NAME: Reggie Pena Sr. DATE OF : 1970 DIAGNOSIS / TREATMENT OVERVIEW Reggie Pena Sr. is a 51 y.o. male with pT3N0 (Stage III)??squamous cell carcinoma of the [...] 54 Gy @ 1.8 Gy/fxn PLAN IMAGES CLINICAL COURSE Reggie Pena Sr. had the following toxicities at the end of treatment (CTCAE v4.03): Site Grade Skin 2 Xerostomia 1 Pharyngeal Mucositis 1 Dysphagia 1 Hoarseness Aphonic Feeding Tube: N FOLLOW UP Per [facility] protocol documented in this encounter Plan of Treatment Upcoming Encounters Date Type Department Care Team (Late st Contact Info) Description 02/02/2024 3:00 PM EST Office Visit Radiation Oncology at [address] [address] Ag Cruz MD [facility] [place] [address] documented as of this encounter Visit Diagnoses Not on filedocumented in this encounter Care Teams Contract Modeler Relationship Specialty Start Date End Date Weston Tobias PA [address] [place] [address] PCP - General Family Medicine 02/25/21 documented as of this encounter
--- OUTSIDE RECORDS SUMMARY | 2023-12-01 16:00 | XMS_ITS | Encounter Summary ---
Author Organization [facility] Address [facility] [address] [address] Care Team Providers Care Etl Informatica Developer Name Role Phone Weston Tobias Primary Care Provider +1- [phone] Encounter Details Date Type Department Care Team (Late st Contact Info) Description 06/25/2021 3:30 PM EDT Office Visit Radiation Oncology at [address] [address] Ag Cruz MD [facility] [place] [address] Squamous cell carcinoma of supraglottis Social History [...] Sign Reading Time Taken Comments Blood Pressure 140/100 06/25/2021 3:42 PM EDT Pulse 98 06/25/2021 3:42 PM EDT Temperature 36.7 ??C (98.1 ??F) 06/25/2021 3:42 PM ED T Respiratory Rate 18 06/25/2021 3:42 PM EDT Oxygen Saturation 100% 06/25/2021 3:42 PM EDT Inhaled Oxygen Concentration - - Weight 157.9 kg (348 lb) 06/25/2021 3:42 PM EDT with shoes Height - - Body Mass Index 47.19 06/18/2021 2:20 PM EDT documented in this encounter Progress Notes * Ag Cruz MD - 06/25/2021 3:30 PM EDT ON TREATMENT VISIT NOTE Reggie Luan Pena Sr. is a 51 y.o. 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 Adjuvant radiotherapy Current treatment dose: 12 Gy in 6 fractions. Anticipated total dose: 60 Gy in 30 fractions. Concomitant Therapy: N Evaluation of Port Verification Films: PORT films have been reviewed, please see JENNIFERA for details. Changes in medical condition Pain: left shoulder pain, 08/24, stable. No oropharyngeal pain. Secretions/Dryness: no dysgeusia, no xerostomia Swallowing Function: no issues Nutrition / G tube: all by mouth. No G tube. Skin: no issues GI: -N/V: no issues -Bowels: no issues Other: Nutrition Assessment: Weight : 150.6 kg initial Change: 150.6 => 157.9 Objective: Vitals: 06/25/21 1542 BP: (!) 140/100 Pulse: 98 Resp: 18 Temp: 36.7 ??C (98.1 ??F) SpO2: 100% Weight: (!) 157.9 kg (348 lb) SKIN: no skin erythema HEENT: no mucositis Assessment: No toxicity. CTCAE TOXICITY GRADES (see below for [...] at least 8 times daily ?? Alimentation: event executive following ?? Weight stable, all by mouth [...] EST Office Visit Radiation Oncology at [address] [address] Ag Cruz MD [facility] [place] [address] documented as of this encounter Visit Diagnoses Diagnosis Squamous cell carcinoma of supraglottis Malignant neoplasm of supraglottis documented in this encounter Care Teams Etl Informatica Developer Relationship Specialty Start Date End Date Weston Tobias PA [address] [place] [address] PCP - General Family Medicine 02/25/21 documented as of this encounter
--- OUTSIDE RECORDS SUMMARY | 2023-12-01 16:00 | XMS_ITS | Encounter Summary ---
Author Organization [facility] Address [facility] [place] [address] Care Team Providers Care Special Client Bus Driver Name Role Phone Weston Tobias Primary Care Provider +1- [phone] Encounter Details Date Type Department Care Team (Late st Contact Info) Description 09/26/2021 Telephone Radiation Oncology at [address] [phone] Raeann Jarrett, RN Social History [...] Telephone Encounter - Raeann Jarrett RN - 09/26/2021 3:42 PM EDT Radiation Oncology Nurse Telephone Note [facility] [place], [place] ----- Message from Susanna Mejia sent at 09/26/2021 11:28 AM EDT ----- Reggie Linares's daughter called in today to see if she could talk to a triage nurse about her father, he has not been feeling well, he is a lot of pain though she doesn't know is number. He is very tired and there is swelling around his stoma also it is warm to the touch, his speaking piece is not working. Milagros is wondering if it may be infected and should he be seen sooner then his appointment Best call back number is [phone] Wednesday 3:35PM telephone call [phone] (M) and daughter, Milagros answered. She states they are at the [facility] now. He is not running a fever and she thinks that he will be given an antibiotic. She was instructed to bring him to local ER over the weekend if he develops fever or increased swelling , pain or any other concerning symptoms. She verbalized understanding of these instructions. documented in this encounter Plan of Treatment Upcoming Encounters Date Type Department Care Team (Late st Contact Info) Description 02/02/2024 3:00 PM EST Office Visit Radiation Oncology at [address] [phone] Ag Cruz MD [facility] [address] [place] [address] documented as of this encounter Visit Diagnoses Not on filedocumented in this encounter Care Teams Special Client Bus Driver Relationship Specialty Start Date End Date Weston Tobias PA [address] [place] [address] PCP - General Family Medicine 02/25/21 documented as of this encounter
--- OUTSIDE RECORDS SUMMARY | 2023-12-01 16:00 | XMS_ITS | Encounter Summary ---
Author Organization [facility] Address [facility] [address] [place] [address] Care Team Providers Care Chronic Specialist Name Role Phone Weston Tobias Primary Care Provider +1- [phone] Encounter Details Date Type Department Care Team (Late st Contact Info) Description 08/06/2021 8:30 AM EDT Office Visit Radiation Oncology at [address] [phone] Ag Cruz MD [facility] [place] [address] Squamous cell carcinoma of supraglottis Social History [...] Sign Reading Time Taken Comments Blood Pressure 156/93 08/06/2021 8:31 AM EDT Pulse 101 08/06/2021 8:31 AM EDT Temperature 37.1 ??C (98.8 ??F) 08/06/2021 8 :31 AM EDT Respiratory Rate - - Oxygen Saturation 100% 08/06/2021 8:3 1 AM EDT Inhaled Oxygen Concentration - - Weight 161.8 kg (356 lb 9.6 oz) 022 8:31 AM EDT with shoes Height - - Body Mass Index 48.35 07/30/2021 2:25 PM EDT documented in this encounter Progress Notes * Ag Cruz MD - 08/06/2021 8:30 AM EDT FOLLOW UP VISIT NOTE Reggie Luan Pena Sr. is a 51 y.o. 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 Adjuvant radiotherapy Treatment dose: 60 Gy in 30 fractions. Concomitant Therapy: N Changes in medical condition Pain: left shoulder pain, 3/10, stable. Occasional throat pain. Taking Tylenol, 500 mg QID. Secretions/Dryness: mild dysgeusia, mild xerostomia. Swallowing Function: no issues Nutrition / G tube: all by mouth. No G tube. Skin: occasional burning. Trach: crusting superior aspect of trachea c/w radiation effect. GI: -N/V: no issues -Bowels: no issues Other: Nutrition Assessment: Weight : 150.6 kg initial Change: 160.1 => 161.8 Objective: Vitals: 08/06/21 0831 BP: (!) 156/93 Patient Position: Sitting Pulse: (!) 101 Temp: 37.1 ??C (98.8 ??F) TempSrc: Temporal SpO2: 100% Weight: (!) 161.8 kg (356 lb 9.6 oz) SKIN: brisk skin erythema around trach with some desquamation; crusting and mild bleeding inside tracheostomy. HEENT: no mucositis Assessment: Moderate toxicity. Overall tolerating well. CTCAE TOXICITY GRADES (see below for bradley): Site Grade Skin 3 Xerostomia 1 Pharyngeal Mucositis 1 Dysphagia 1 Hoarseness Aphonic Plan: ?? Pain control: ?? OTC medications ?? Skin: Ptplex cream / AP cream prn. Silvadene for small volume desquamation. ?? Mucositis: ?? Pain control: see above ?? Oral hygiene consisting of baking soda/salt rinse at least 8 times daily ?? 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 Weight stable, all by mouth at this time ?? GI: ?? NV: No issues ?? Bowels: No issues ?? FU: I will see him in two weeks CTCAE v4.03 scales for reference Skin 0 [...] EST Office Visit Radiation Oncology at [address] [phone] Ag Cruz MD [facility] [place] [address] documented as of this encounter Visit Diagnoses Diagnosis Squamous cell carcinoma of supraglottis Malignant neoplasm of supraglottis documented in this encounter Care Teams Chronic Specialist Relationship Specialty Start Date End Date Weston Tobias PA [address] [place] [address] PCP - General Family Medicine 02/25/21 documented as of this encounter
--- OUTSIDE RECORDS SUMMARY | 2023-12-01 16:00 | XMS_ITS | Encounter Summary ---
Author Organization [facility] Address [facility] [address] Care Team Providers Care Cyberathlete Name Role Phone Weston Tobias Primary Care Provider +1- [phone] Encounter Details Date Type Department Care Team (Late st Contact Info) Description 06/23/2021 Telephone Radiation Oncology at [address] [phone] Lucina Parks, RN Social History Tobacco Use Types Packs/Day [...] encounter Miscellaneous Notes * Telephone Encounter - Lucina Parks RN - 06/23/2021 12:48 PM EDT Milagros states that [employer] is no longer going to cover patient's equipment and that they need to find a supplier that will accept his current medicaid insurance for DME. She has spoken with them and has been told that they will not sheepskin pickler his current suction, humidity, filters etc until another vendor can be found to replace. Telephone call to to [employer] who confirmed that patient now has Medicaid which is not a contracted carrier for their reimbursement. She also confirmed that they will allow currentequipment to remain in the home until new DME provider is found. Plan: Work with team to secure new DME for patient supplies. Dr. Cruz, Kimmie Baker, BRONZE PLATER updated with this note. * Telephone Encounter - Lucina Parks RN - 06/23/2021 12:47 PM EDT ----- Message from Sherri Yi sent at 06/23/2021 11:25 AM EDT ----- Regarding: Medical Supplys Reggie has had his insurance switch. Now his medical supplier is not giving him supply's he needs daily anymore and he is out of stuff for home. He needs help getting something set up and also needs supply's for today. The other company is coming to get all the equipment soon. Can we call Milagros at [phone] to help her get this arranged. Thanks Iesha~ documented in this encounter Plan of Treatment Upcoming Encounters Date Type Department Care Team (Late st Contact Info) Description 02/02/2024 3:00 PM EST Office Visit Radiation Oncology at [address] [phone] Ag Cruz MD [facility] [place] [address] documented as of this encounter Visit Diagnoses Not on filedocumented in this encounter Care Teams Cyberathlete Relationship Specialty Start Date End Date Weston Tobias PA [address] [place] [address] PCP - General Family Medicine 02/25/21 documented as of this encounter
--- OUTSIDE RECORDS SUMMARY | 2023-12-01 16:00 | XMS_ITS | Encounter Summary ---
Author Organization [facility] Address [facility] [address] [address] Care Team Providers Care Progressive Care Unit Registered Nurse Name Role Phone Weston Tobias Primary Care Provider +1- [phone] Encounter Details Date Type Department Care Team (Late st Contact Info) Description 06/04/2021 2:00 PM EDT Office Visit Radiation Oncology at [address] [phone] Ag Cruz MD [facility] [place] [address] Squamous cell carcinoma of supraglottis Social History [...] Sign Reading Time Taken Comments Blood Pressure 133/90 06/04/2021 1:26 PM EDT Pulse 90 06/04/2021 1:26 PM EDT Temperature 36.8 ??C (98.2 ??F) 06/04/2021 1:26 PM ED T Respiratory Rate 18 06/04/2021 1:26 PM EDT Oxygen Saturation - - Inhaled Oxygen Concentration - - Weight 150.7 kg (332 lb 3.2 oz) 06/04/2021 1:26 PM EDT Height - - Body Mass Index 45.05 05/15/2021 1:19 PM EDT documented in this encounter Progress Notes * Ag Cruz MD - 06/04/2021 2:00 PM EDT Consent signed for radiotherapy today. Simulation rescheduled for tomorrow in [place]. documented in this encounter Plan of Treatment Upcoming Encounters Date Type Department Care Team (Late st Contact Info) Description 02/02/2024 3:00 PM EST Office Visit Radiation Oncology at [address] [phone] Ag Cruz MD [facility] [place] [address] documented as of this encounter Visit Diagnoses Diagnosis Squamous cell carcinoma of supraglottis Malignant neoplasm of supraglottis documented in this encounter Care Teams Progressive Care Unit Registered Nurse Relationship Specialty Start Date End Date Weston Tobias PA [address] [place] [address] PCP - General Family Medicine 02/25/21 documented as of this encounter
--- OUTSIDE RECORDS SUMMARY | 2023-12-01 16:00 | XMS_ITS | Encounter Summary ---
Author Organization [facility] Address [facility] [place] [address] Care Team Providers Care Medical Records Coordinator Name Role Phone Weston Tobias Primary Care Provider +1- [phone] Encounter Details Date Type Department Care Team (Late st Contact Info) Description 07/30/2021 3:00 PM EDT Office Visit Hematology/Oncology at [address] [phone] Jennifer Cantrell, RD [facility] [place] [address] Squamous cell carcinoma of supraglottis Social History [...] - Inhaled Oxygen Concentration - - Weight 160 kg (352 lb 12.8 oz) 07/30/2021 2:25 P M EDT Height 182.9 cm (6' 0.01) 07/30/2021 2:25 PM ED T Body Mass Index 47.84 07/30/2021 2:25 PM EDT documented in this encounter Progress Notes * Jennifer Cantrell, RD - 07/30/2021 3:00 PM EDT Nutrition Note Spoke with patient following his last radiation treatment today for 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. He reports 6/10 pain with swallowing and is taking tylenol only to manage this. He says solid foods hurt more than liquids. He ate hash browns and a tuna fish sandwich yesterday. He continues todrink one protein shake daily; he is not sure of the brand. His weight is stable. 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 Relayed this to Fco Ball, CLOUD CONSULTANT who patient has seen before as well as CHERISE Santiago. Wt Readings from Last 3 Encounters: 07/30/21 (!) 160 kg (352 lb 12.8 oz) 07/30/21 (!) 159.7 kg (352 lb) 07/23/21 (!) 158.8 kg (350 lb 3.2 [...] 163.3 kg (360 lb)surgery Weight stable for past 5 weeks. Patient has regained most of weight loss following surgery 3 monthsago. Plan: * Continue with regular meals, stick with softer foods while having swallowing pain. Continue protein shake once daily. F/U on 08/06. documented in this encounter Plan of Treatment Upcoming Encounters Date Type Department Care Team (Late st Contact Info) Description 02/02/2024 3:00 PM EST Office Visit Radiation Oncology at [address] [phone] Ag Cruz MD [facility] [place] [address] documented as of this encounter Visit Diagnoses Diagnosis Squamous cell carcinoma of supraglottis Malignant neoplasm of supraglottis documented in this encounter Care Teams Medical Records Coordinator Relationship Specialty Start Date End Date Weston Tobias PA [address] [place] [address] PCP - General Family Medicine 02/25/21 documented as of this encounter
--- OUTSIDE RECORDS SUMMARY | 2023-12-01 16:00 | XMS_ITS | Encounter Summary ---
Author Organization [facility] Address [facility] [place] [address] Care Team Providers Care Green Building Engineer Name Role Phone Weston Tobias Primary Care Provider +1- [phone] Encounter Details Date Type Department Care Team (Late st Contact Info) Description 08/27/2021 10:30 AM EDT Office Visit Hematology/Oncology at [address] [phone] Francia Madrid, FIELD MANAGER Status post laryngectomy; Squamous cell carcinoma of supraglottis; Dysphonia; Dysphagia, unspecified type Social History Tobacco [...] this encounter Progress Notes * Francia Madrid, FIELD MANAGER - 08/27/2021 10:30 AM Chanel: FIELD MANAGER Progress Note Speech-Language Pathology Progress Note 08/27/2021 Total Treatment Time: 50 min S: Pt requested appointment due to interest in exploring options for hands-free HME / speaking valve device(s). Patient completed adjuvant RT for squamous cell carcinoma of the supraglottis 3 weeks ago. He reports his taste and smell are both improving gradually and PO intake is adequate, although did endorse occasional globus at esophageal/neopharyngeal level with IDDSI Level 7 solids, last weekit has since resolved. Patient states he continues to take smaller bites, added moisture and alternates solids and liquids while eating. Has demonstrated comprehension with potential need for esophageal dilation if globus returns or becomes worse. Reports dysphagia has improved since previous week, mostly frustrated with fatigue. Has not used HME device during RT given pain with stoma site; has not used HME lately but reports he is going to start soon. Reports he is going back to work tomorrow just to try it - Has had conversations with employer recurrent restrictions for driving (ie, he will be unable to use [employer] radio while driving since other hand would be needed for stoma occlusion to speak) Pain: 07/25, feels this is mainly in submandibular region, not near stoma Reports pain being managed well with Tylenol, took some this AM O: Pt. seen for treatment of aphonia, dysphagia s/p total laryngectomy (04/2021) Current Goals ?? Pt to demonstrate good comprehension of stomal and TEP care/maintenance. Reviewed and demonstrated how to flush and brush TEP prosthesis. Patient has now been using new light source to help him visualize TEP prosthesis easier. Patient also demonstrates adequate comprehension re: application of adhesive housing and HME filter. Reviewed rationale for consistent use of HME including while sleeping and available device optionsvia addwish. Continued to encourage Patient to use HME as he is not currently. Pt states he has not been using his HME due to the adhesive hurting when removing the devise due to RT. Patient denies pain currently at stoma site and acknowledges need for HME use. ?? Pt to demonstrate good comprehension of use of TEP. Pt continues to be independent with finger occlusion of stoma with and without HME. Phonation remains clear. Minimal pressure needed for phonation. ?? 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 Discussed role of employer/ADA and appropriate accommodations in context of aphonia if/when patientreturns to work. Patient states employer is on board with working with him with accommodations and he is not expected to use the [employer] radio while driving. Reviewed options for hands-free HME device(s) for patient to order; FIELD MANAGER will contact patient's daughter to discuss steps to move forward with ordering devices ?? Pt to demonstrate good comprehension of overt s/sx leakage in/around TEP, procedures to temporary TEP occlusion with available plug device(s), and s/sx worsening dysphagia / options for texture modifications. VFSE/MBSS if leakage suspected and discussion with medical team re: esophageal dysphagia if globus persists/creates issue with bolus flow and/or continued adequate PO intake Patient is not experiencing globus at this time. Support groups - Has connected with caregiver of former laryngectomee - Urmila's Marquis Miles Dysphagia Inventory [MDADI], a validated and reliable self- administered questionnaire designed specifically for evaluating the impact of dysphagia on the QOL of patients with head and neck cancer (Peri et al 2001), was administered: Global Score: 2/5 Scores range from 1 (Extremely low functioning) to 5 (Extremely high functioning) Composite Score: 64.2 Scores range from 20 (Extremely low functioning) to 100 (High functioning) Subscales (mean) Physical 3 Emotional 3.3 Functional 3.3 Scores range from 1 (Extremely low functioning) to 5 (Extremely high functioning) A: Pt has been utilizing his TEP for communication successfully since last visit with FIELD MANAGER at [facility]; patient has transferred his FIELD MANAGER care to this clinician due to travel. Patient demonstrates increased comfort with prosthesis care (daily flushing and brushing), understands reasons for contacting FIELD MANAGER if t roubleshooting may need to take place. Patient currently has various adhesive housing including suspected [employer] Silicone Glue, however Patient is unsure of exact devices he has at home and HME supplies. Patient was asked to bring his supplies with him to his next appointment. P: ?? Speech to follow-up within 1-2 weeks. ?? Pt is in agreement with plan of treatment Francia Madrid MA CCC-FIELD MANAGER Speech-Language Pathologist documented in this encounter Plan of Treatment Upcoming Encounters Date Type Department Care Team (Late st Contact Info) Description 02/02/2024 3:00 PM EST Office Visit Radiation Oncology at [address] [phone] Ag Cruz MD [facility] [place] [address] documented as of this encounter Visit Diagnoses Diagnosis Status post laryngectomy Other postprocedural status Squamous cell carcinoma of supraglottis Malignant neoplasm of supraglottis Dysphonia Dysphagia, unspecified type documented in this encounter Care Teams Green Building Engineer Relationship Specialty Start Date End Date Weston Tobias PA [address] [place] [address] PCP - General Family Medicine 02/25/21 documented as of this encounter
--- OUTSIDE RECORDS SUMMARY | 2023-12-01 16:00 | XMS_ITS | Encounter Summary ---
Author Organization [facility] Address [facility] [place] [address] Care Team Providers Care Credit Advisor Name Role Phone Weston Tobias Primary Care Provider +1- [phone] Encounter Details Date Type Department Care Team (Late st Contact Info) Description 08/27/2021 11:30 AM EDT Office Visit Hematology/Oncology at [address] [phone] Jennifer Cantrell, [facility] HEM[place] [address] Squamous cell carcinoma of supraglottis Social History [...] - Inhaled Oxygen Concentration - - Weight 165.6 kg (365 lb) 08/27/2021 11:22 AM EDT Height - - Body Mass Index 49.49 07/30/2021 2:25 PM EDT documented in this encounter Progress Notes * Jennifer Cantrell, RD - 08/27/2021 11:30 AM EDT Nutrition Note Spoke with patient briefly after his visit with Francia Madrid MIDDLEWARE SYSTEMS ARCHITECT today. He reports he is eating well and taste sensation is steadily improving. He says BG ranges 100-200 mg/dl. Patient denies any swallowing difficulty. Weight is stable over the past couple of weeks. He has re-gained weight lost during surgery and radiation treatment. Wt Readings from Last 10 Encounters: 08/27/21 (!) 165.6 kg (365 lb) 08/20/21 (!) 162.6 kg (358 lb 6.4 [...] oz) 06/25/21 (!) 157.9 kg (348 lb) 04/30/21 (!) 163.3 kg (360 lb)surgery Will f/u as needed. documented in this encounter Plan of Treatment Upcoming Encounters Date Type Department Care Team (Late st Contact Info) Description 02/02/2024 3:00 PM EST Office Visit Radiation Oncology at [address] [phone] Ag Cruz MD [facility] [place] [address] documented as of this encounter Visit Diagnoses Diagnosis Squamous cell carcinoma of supraglottis Malignant neoplasm of supraglottis documented in this encounter Care Teams Credit Advisor Relationship Specialty Start Date End Date Weston Tobias PA [address] [place] [address] PCP - General Family Medicine 02/25/21 documented as of this encounter
--- OUTSIDE RECORDS SUMMARY | 2023-12-01 16:01 | XMS_ITS | Encounter Summary ---
[place] [address] Care Team Providers Care Beef Pusher Name Role Phone Weston Tobias Primary Care Provider +1- [phone] Encounter Details Date Type Department Care Team (Latest Contact Info) Description 05/15/2021 Multidisciplinary Ca re Committee [place] [id number] Tomy Tipton MD [facility] [place] [address] Social History Tobacco Use Types Packs/Day Years [...] as of this encounter Progress Notes * Tomy Tipton MD - 05/15/2021 7:28 AM EDT Images from the original note were not included. Head and Neck Tumor Board Note Site/Stage [id number] SCCa of the supraglottic larynx Synopsis with pertinent exam findings 50 year old patient with a history of heavy Tobacco Use and not-well controlled DM2, who presented to his PCP with dysphagia. He admitted progressive sore throatfor 1 year, on the left more than right, as well as hoarseness. He had had a 40 pound weight loss since his last check in April. A barium swallow on 02/17/21 showed the following: ?? IMPRESSION: Irregular filling defect in the hypopharynx pronounced along the anterior margin, extending into the aryepiglottic fold region and epiglottis region highly suspicious for neoplasm ?? Now s/p staging endoscopy with the following findings: Grade 1 view with a Dedo laryngoscope and agreed to a view with Jennifer laryngoscope. Tumor involving the entire epiglottis and extending laterally to involve the aryepiglottic fold the medial piriform sinus and extending towards the lateral piriform sinus wall but not involving the piriform apex.Tumor extends down onto the arytenoid on the left but does not appear to involve the interarytenoidspace. Tumor does not involve the right arytenoid or right area epiglottic fold. The left false fold appears to be uninvolved as does the true cord on the left. The right true cord and false fold didnot appear to be involved. Cervical esophagoscopy down to 25 cm from the upper lip demonstrated normal esophageal lumen. Tumor does not appear to involve the base of tongue and the base of tongue is soft on palpation. Now s/p total laryngectomy, left partial pharyngectomy and tonsillectomy, bilateral neck dissections, and left hemithyroidectomy with primary sewn closure. Pathology DIAGNOSIS A - Inter-arytenoid, biopsy ?? for frozen section - Benign mucosa. B - Right level 2A - Nineteen benign ??nodes ??(0/19). C - Right Level 3 - Twenty two benign nodes (0/22). D - Right level 4 - Sixteen benign nodes (0/16). E - Right level 2B - Six benign nodes (0/6). F - Left level 2A - Nineteen benign ??nodes ??(0/19). G - Left level 3 - Twenty seven benign nodes (0/27). H - Left level 2B - Three benign nodes (0/3). I - Left level 4 - Ten benign nodes (0/10). J - Midline 6 - Benign adipose, no nodes. 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 Closest ??laryngectomy margin specimen K, Left lateral soft tissue, 0.7 mm. ??See ??Synoptic report for final Courtney. Benign thyroid gland. See Synoptic report. L - Final superior left lateral pharynx, margin, excision - Benign mucosa and skeletal muscle. M - Final superior pharynx margin ?? excision ??- Benign mucosa with tonsillar-type tissue. N - Final left lateral tongue base excision - Benign mucosa with tonsillar-type tissue. O - Final left medial tongue base excision - Benign mucosal tissue. P - Final right tongue base excision - Benign mucosa with tonsillar-type tissue. Q - Final ??right superior ??pharynx margin excision - . DIAGNOSIS Benign mucosal tissue. R - Left tonsil - Reactive tonsillar tissue with crypt abscess and ?actinomyces colonies . Electronically signed by: ?Hayley Nelson DO Verified: ??05/07/2021 16:08 ??Pathologist Performed at: ??-[facility] Dept. of Pathology, [place], [place] SYNOPTIC Specimen ?Procedure: ??Total laryngectomy; ??Partial Pharyngectomy and Left ? Hemithyroidectomy Tumor ?Tumor Focality: ??Unifocal ?Tumor Site: ??Larynx, supraglottis ? Tumor Subsite: ??Epiglottis, lingual aspect; ??Epiglottis, laryngeal aspect; ? Aryepiglottic folds ?Transglottic Extension: ??Not identified ?Tumor Laterality: ??Right; ??Left; ??Midline ?Tumor Size: ??5.2 Centimeters (cm) ?Histologic Type: ??Squamous cell carcinoma, conventional (keratinizing) ?Histologic Grade: ??G2, moderately differentiated ?Lymphovascular Invasion: ??Not identified ?Perineural Invasion: ??Not identified Margins ?Margin Status for Invasive Tumor: ??All margins negative for invasive tumor ? Distance from Invasive Tumor to Closest Margin: ??18 mm ? Closest Margin(s) to Invasive Tumor: ??Left AEF (K6) ? Other Close Margin(s) to Invasive Tumor: ??With additional marginal tissue ?resections (separate specimens), all other RM > 5 mm ?Margin Status for Noninvasive Tumor: ??All margins negative for noninvasive ? tumor ? Distance from Noninvasive Tumor to Closest Margin: ??Greater than 5 mm ? Closest Margin(s) to Noninvasive Tumor: ??to all RM Regional Lymph Nodes ?Regional Lymph Node Status: ??All regional lymph nodes negative for tumor ?Number of Lymph Nodes Examined: ??122 Pathologic Stage Classification (pTNM, AJCC 8th Edition) ?pT Category: ??pT3 ?pN Category: ??pN0 Additional Findings ?Additional Findings: ??Benign paty thyroid gland Imaging EXAMINATION: CT NECK SOFT TISSUE W CONTRAST (GENERIC) ?? CLINICAL HISTORY: Chronic laryngitis Pt w history of hoarseness and dysphagia x 1 yr with abnormal barium swallow test very suspicious for mucosal neoplasm. Please assess for tumor of throat, extent of disease. ?? TECHNIQUE: CT neck performed after the intravenous administration of contrast. Administered 110.0 ml of OMNIPAQUE 350.00 mg/ml. ?? COMPARISON: Barium swallow 02/17/2021 ?? FINDINGS: There is a large mass lesion left greater than right at the tongue base where it measures up to at least 4.4 cm in transverse diameter. There is mild extension into the posterior aspect of the floor of mouth. The lesion measures up to 3.0 cm at the level of the aryepiglottic fold. Craniocaudad length is roughly 5.0 cm. The lesion has eroded through the epiglottis and also extends along the left side of the oropharynx to include the left preepiglottic fat, the left aryepiglottic fold and left side of the mid to lower epiglottis extending down to the region of the left true vocal cord. No definite subglottic extension. No definite involvement of the thyroid cartilage. The left arytenoid cartilage demonstrates asymmetrically show more calcification than the right. No erosions to suggest cricoid cartilage involvement. The supraglottic airway deviates to the right and is mild to moderately narrowed. ?? No cervical lymphadenopathy bilaterally. ?? No nodules in the visualized portions of the lungs. The visualized portions of the brain are grossly normal. ?? Incidental lipoma in the dorsal left neck that measures up to at least 6.3 cm in the axial plane. ? IMPRESSION 1. Tongue base mass eroding through the epiglottis and extending into the preepiglottic fat down to the level of the true vocal cord. No definite subglottic extension and no evidence of thyroid cartilage invasion. Sclerosis of the left arytenoid cartilage is nonspecific. 2. No cervical lymphadenopathy. 3. No evidence of distant regional metastases. EXAMINATION: NM PET CT STANDARD PLUS HEAD AND NECK ?? CLINICAL HISTORY: 50-year-old male with dysphagia and 40 pound weight loss and concern for supraglottic tumor on CT neck and flexible laryngoscopy ?? TECHNIQUE: Following IV injection of 75-xdsnlm-0-deoxyglucose (FDG) a standard uptake of approximately 60 minutes, a noncontrast CT scan followed by a PET scan were acquired from the top of head to mid thighs. The noncontrast CT was used for anatomic localization and photon attenuation correction of the PET scan. ?? Blood glucose level: 66 (mg/dL) ?? FDG dose: 18.1 mCi ?? COMPARISON: CT neck to 03/20/2021 ?? FINDINGS: ?? HEAD: Normal activity in all soft tissue regions. ?? NECK: Approximately 4 cm FDG avid lobulated mass in the left supraglottic larynx extending superiorly into the left lingual tonsil/base of tongue region where it crosses midline into the right lingual tonsil region (spanning axial images 77 through 91). Small FDG avid adenopathy in the bilateral level 2 regions (axial images 74-79). Small FDG avid lymph node in the left level 3 region (axial image 88). ?? CHEST: Normal activity in all soft tissue regions. No lymphadenopathy. Coronary and aortic calcifications present. ?? ABDOMEN/PELVIS: Normal activity in all soft tissue regions. Prominent but within the range of physiologic bowel activity throughout the colon and rectum. No lymphadenopathy. ?? SKELETON/EXTREMITIES: Mild diffusely increased marrow activity in the axial and visualized proximal appendicular skeleton, consistent with reactive marrow. ?? IMPRESSION 1. Approximately 4 cm FDG avid mass in the left supraglottic larynx extending superiorly into the left lingual tonsil/base of tongue region where crosses midline into the right lingual tonsil region. 2. Small laurita metastases strongly suspected in the bilateral level 2 and left level 3 regions. 3. No distant sites of metastasis. Tumor Board Recs Bulky T3N0 supraglottic SCCa with good margins and no laurita metastases. Plan for referral to Radiation Oncology for adjuvant radiotherapy. * (Based on past studies and the information available at the time of presentation) Specific treatment to be undertaken must ultimaly be determined on an individual basis by the patient and those invoved in her/his treatment) Tomy Tipton MD PGY-4 [facility] Otolaryngology Pager: [phone] documented in this encounter Plan of Treatment Upcoming Encounters Date Type Department Care Team (Late st Contact Info) Description 02/02/2024 3:00 PM EST Office Visit Radiation Oncology at [address] [phone] Ag Cruz MD [facility] [place] [address] documented as of this encounter Visit Diagnoses Not on filedocumented in this encounter Care Teams Beef Pusher Relationship Specialty Start Date End Date Weston Tobias PA [address] [place] [address] PCP - General Family Medicine 02/25/21 documented as of this encounter
--- OUTSIDE RECORDS SUMMARY | 2023-12-01 16:01 | XMS_ITS | Encounter Summary ---
Author Organization [facility] [place] [address] Care Team Providers Care Tree Feller Name Role Phone Weston Tobias Primary Care Provider [phone]- [phone] Encounter Details Date Type Department Care Team (Late st Contact Info) Description 05/11/2021 Telephone [place] [address] iPpo Norirs MD [facility] [place] [address] Social History Tobacco Use Types Packs/Day Years Used Date Smoking Tobacco: Every Day Cigarettes 1.5 24 Smokeless Tobacco: Never Comments:Declines Tobacco ce ssasion [...] encounter Miscellaneous Notes * Telephone Encounter - Pipo Norris - 05/11/2021 3:48 PM EDT I received a call from [facility] taking care of Mr. Pena. He was discharged few days ago and they have been confused about instructions for treatment of his DM. He was on metformin 1000 mg BID and glipizide 10 mg BID prior to most recent admission. Discharge instructions state to start with lantus 17 units (although prescription is written for lantus 28 units) and decrease to 10 units once he adds metformin and glipizide. He is also has prescription for Humalog 5 units with meals plus moderate correction scale. As per [facility] pt was on tube feeds while inpatient and they were stopped on the day he was discharged.At home first day after he did not take any medications for DM, on Wednesday took metformin 1000 mg and glipizide 10 mg once, yesterday took metformin and glipizide twice and when [facility] came to help with insulin they did not start it because his sugar was ~70. Last night he was hypoglycemic to 50. Todayhe did not take any medications for DM. Fasting sugar this morning was 120, and now at 3 pm it is 168. He is not eating much. My recommendations: - do not take insulin lantus or Humalog - do not take glipizide - take tonight and tomorrow metformin 1000 mg only with dinner - on 05/13/2021 has follow up (video visit ) with [facility] [place] [facility] and his mediations will be adjusted at that point documented in this encounter Plan of Treatment Upcoming Encounters Date Type Department Care Team (Late st Contact Info) Description 02/02/2024 3:00 PM EST Office Visit Radiation Oncology at [address] [phone] Ag Cruz MD [facility] [place] [address] documented as of this encounter Visit Diagnoses Not on filedocumented in this encounter Care Teams Tree Feller Relationship Specialty Start Date End Date Weston Tobias PA [address] [place] [address] PCP - General Family Medicine 02/25/21 documented as of this encounter
--- OUTSIDE RECORDS SUMMARY | 2023-12-01 16:01 | XMS_ITS | Encounter Summary ---
Author Organization [facility] [place] [address] Care Team Providers Care Sand Slinger Operator Name Role Phone Weston Tobias Primary Care Provider +1- [phone] Encounter Details Date Type Department Care Team (Late st Contact Info) Description 05/11/2021 Telephone [place] [address] Pipo Norris MD [facility] [address] Social History Tobacco Use Types Packs/Day Years [...] Telephone Encounter - Pipo Norris - 05/11/2021 3:49 PM EDT Duplicate encounter documented in this encounter Plan of Treatment Upcoming Encounters Date Type Department Care Team (Late st Contact Info) Description 02/02/2024 3:00 PM EST Office Visit Radiation Oncology at [address] [phone] Ag Cruz MD [facility] [place] [address] documented as of this encounter Visit Diagnoses Not on filedocumented in this encounter Care Teams Sand Slinger Operator Relationship Specialty Start Date End Date Weston Tobias PA [address] [place] [address] PCP - General Family Medicine 02/25/21 documented as of this encounter
--- OUTSIDE RECORDS SUMMARY | 2023-12-01 16:01 | XMS_ITS | Encounter Summary ---
[place] [address] Care Team Providers Care Rn Procedure Name Role Phone Weston Tobias Primary Care Provider +1- [phone] Reason for Visit * Reason Comments Diabetes Follow-up Recent surgery Encounter Details Date Type Department Care Team (Latest Contact Info) Description 05/13/2021 1:00 PM EDT TH Visit (TeleHealth) [place] [phone] Milagros Roy, [place] Throat cancer; Uncontrolled type 2 diabetes mellitus with hyperglycemia; Squamous cell carcinoma of supraglottis; Status post laryngectomy Social History Tobacco Use [...] as of this encounter Progress Notes * Lucia Puentes, [place] - 05/13/2021 1:00 PM EDT . Reggie Roland Jean Sr. ELIDA Espinosa .05/13/21 RECENT [facility] ADMISSION SUMMARY Reggie was discharged from [facility] on 05/07 after being admitted for throat surgery on 04/30. Meds reviewed. Seen with daughter Milagros (age 31) as Reggie is not speaking yet. Blood sugars and pill taking assessed, Airway clearly intact and Reggie looks bright and upbeat [facility] CONSULT ASSESSMENT Lab Results Component Value Date HA1C 7.0 (H) 04/30/[address] Mendoza covering the weekend: I received a call from [facility] taking care of Mr. Pena. He was discharged few days ago and they have been confused about instructions for treatment of his DM. ?? He was on metformin 1000 mg BID and glipizide 10 mg BID prior to most recent admission. Discharge instructions state to start with lantus 17 units (although prescription is written for lantus 28 units) and decrease to 10 units once he adds metformin and glipizide. He is also has prescription for Humalog 5 units with meals plus moderate correction scale. ?? As per [facility] pt was on tube [...] is 168. He is not eating much. ?? My recommendations: ?? - do not take insulin lantus or Humalog - do not take glipizide - take tonight and tomorrow metformin 1000 mg only with dinner - on 05/13/2021 has follow up (video visit ) with [facility] DM team and his mediations will be adjusted at that point ?4:00 PM [facility] DISCHARGE PLAN Diabetes Discharge Instructions ?? Please test blood sugars 4 times daily prior to meals and at bedtime. Please test blood sugars withany symptoms. If blood sugar prior to bed time is less than 120mg/dl, please have a small snack. ?? Please reintroduce your metformin and glipizide slowly. ?? Instructions for Lantus Insulin (LONG ACTING) ?? 1. Inject LANTUS 17 units insulin every day. Check blood glucose (BG) before breakfast to adjust this dose 2. If the blood glucose before breakfast is over 150 for two days in a row, add TWO units of insulin to the next LANTUS dose. This increased dose becomes your new dose, continue to increase as needed. 3. If the blood glucose before breakfast is under 90 for two days in a row or you have a low blood sugar during the day, subtract TWO units of insulin from the next LANTUS dose. This lower dose becomes your new dose, continue to decrease as Needed. ?? When you are ready to start Metformin and Glipizide. Please decrease your dose of Lantus to 10 units. Start with one tab of each in the morning and do this for about a week before increasing your dose.Again refer to above (steps 2 and 3) for adjusting your Lantus dose based on glucose levels. ?? When increasing to your Metformin and Glipizide to twice daily. Stop your Lantus dosing and refer to Humalog corrections scale if needed. ? Instructions for Mealtime Humalog Correction Insulin ?? This is the rapid-acting insulin, used at mealtime to prevent a high BG after you eat. Check your BG before each meal. ?? Your correction dose is 1 unit for every 20 points that your BG is above 140. Which means 1 units of insulin will decrease your blood glucose level by 20 points. ADD the following insulin if your before-meal BG is higher than 140: ?? Blood Sugar NOVOLOG DOSE 140-160 ADD 1 unit 161-180 ADD 2 units 181-200 ADD 3 units 201-220 ADD 4 units 221-240 ADD 5 units 241- 260 ADD 6 units 261-280 ADD 7 units 281-300 ADD 8 units >300 or HI ADD 9 units and call Doctor If glucose is HI Try to get some extra exercise and drink a lot of water to help with the high blood sugar. ? Treatment of Low Blood Sugar (Hypoglycemia) If your BG is lower than 80, you are likely to feel shaky, sweaty and lightheaded. This is a signalthat your body needs more sugar. Quickly eat or drink a small serving of something sweet, such as: 4 ounces fruit juice or regular (not diet) soda 6 lifesavers small box of raisins 4 glucose tablets (~15 gm of glucose) If your BG is very low <50, you can double the amount above or take 30 gm of glucose gel/tablets. Sit and rest and you should feel better within a few minutes. Once you are feeling better, try to determine why your BG was so low. Common causes of hypoglycemia include skipping a meal, lots of exercise, too much insulin or any combination of these things. Understanding the cause my help you to avoid another low BG in the future. Please test glucose levels prior to driving. If glucose level is not above 100mg/dl, please have a snack and recheck glucose levels in 15 minutes. Please carry a glucose source on you at all times. Call your doctor for blood sugars less than 80 or greater than 300 twice in one day to have your insulin doses adjusted. ? If you have any issues, please call our office at and ask for Diabetes Management Team. From Milagros, 05/07/2021 DOD RECENT POST HOSPITALIZATION EVENTS Low blood sugars BLOOD SUGAR TRENDS Blood sugars 150-180 INSULIN USAGE TRENDS ZERO ASSESSMENT OF CURRENT GLUCOSE PLAN EFFICACY AND SAFETY Revised plan Needs to have metformin alone HS as is doing Is safe now with no insulin and no glipizide and checking daily 3-[address] and has protein shakes and recs for pudding, ice cream If blood sugars consistently ~200 or >, please consider calling PCP or us (I gave him our desk #) and taking half tab glipizide documented in this encounter Plan of Treatment Upcoming Encounters Date Type Department Care Team (Late st Contact Info) Description 02/02/2024 3:00 PM EST Office Visit Radiation Oncology at [address] [phone] Ag Cruz MD [facility] [place] [address] documented as of this encounter Visit Diagnoses Diagnosis Throat cancer Malignant neoplasm of pharynx, unspecified Uncontrolled type 2 diabetes mellitus with hyperglycemia Squamous cell carcinoma of supraglottis Malignant neoplasm of supraglottis Status post laryngectomy Other postprocedural status documented in this encounter Care Teams Rn Procedure Relationship Specialty Start Date End Date Weston Tobias PA [address] [place] [address] PCP - General Family Medicine 02/25/21 documented as of this encounter
--- OUTSIDE RECORDS SUMMARY | 2023-12-01 16:01 | XMS_ITS | Encounter Summary ---
Author Organization [facility] [place] [address] Care Team Providers Care Neuroradiologist Name Role Phone Weston Tobias Primary Care Provider [phone]- [phone] Reason for Referral * Consultation (Routine) - Duplicate Referral Specialty Diagnoses / Procedures Referred By Jose A paz Referred To Contact Radiation Oncology Diagnoses Larynx cancer Mckenzie Jackson APRN [facility] [place] [address] [address] Rad Onc Treatment [address] [place] [phone] Referral ID Status Reason Start Date Expiration Date Visits Requested Visits Authorized [id number] Duplicate Referral Consult, Test & Treat 05/15/2021 05/15/2022 1 1 Encounter Details Date Type Department Care Team (Late st Contact Info) Description 05/15/2021 1:30 PM EDT Office [place] [address] Mckenzie Jackson APRN [facility] [place] [address] Larynx cancer; Postoperative examination Social History Tobacco Use Types Packs/Day Years [...] - Inhaled Oxygen Concentration - - Weight 163.3 kg (360 lb) 05/15/2021 1:19 PM EDT Height 182.9 cm (6') 05/15/2021 1:19 PM EDT Body Mass Index 48.82 05/15/2021 1:19 PM EDT documented in this encounter Progress Notes * Mckenzie Jackson, REMOTE BROADCAST ENGINEER - 05/15/2021 1:30 PM EDT [facility] OTOLARYNGOLOGY HEAD AND NECK TUMOR CLINIC FOLLOW UP NOTE Date of visit: 05/15/2021 Reggie Roland Jean Ramirez. is a 51 y.o. 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 Here for a postoperative exam. Surgery: Case Date: 04/29/2021 ?? Surgeon: Surgeon(s) and Role: * Mat Casper MD - Primary * Samreen Moreno MD - Resident * Tomy Tipton MD - Resident ?? Preop diagnosis: Supraglottic carcinoma ?? Postop diagnosis: Supraglottic carcinoma ?? Procedure: 1. Direct laryngoscopy with biopsy 2. Bilateral modified radical neck dissection (levels II-IV) 3. Central neck dissection (level ) 4. Left paty-thyroidectomy 5. Total laryngectomy 6. Partial pharyngectomy ?? Anesthesia: Genear ??Case Date: 04/29/2021 ?? Surgeon: Surgeon(s) and Role: * Mat Casper MD - Primary * Samreen Moreno MD - Resident * Tomy iTpton MD - Resident ?? Preop diagnosis: Supraglottic carcinoma ?? Postop diagnosis: Supraglottic carcinoma ?? Procedure: 1. Direct laryngoscopy with biopsy 2. Bilateral modified radical neck dissection (levels II-IV) 3. Central neck dissection (level ) 4. Left paty-thyroidectomy 5. Total laryngectomy 6. Partial pharyngectomy ?? Anesthesia: Genear ?? History of Presentation: this was copied from 's note from 05/07/2021 Reggie Pena Sr.??is a??50 y.o.??male??with PMH obesity, T2DM, HTN, Tobacco use (last??this AM with plans to quit), with [id number] SCCa of the supraglottic larynx. Patient was seen by Dr. Casper in clinic with dysphagia and weight loss. PET scan demonstrated FDG avidity in left supraglottic larynx extending to left lingual tonsil and BOT with small bilateral cervical laurita mets. Patient was discussed at tumor board and plans were made for primary surgical resection with adjuvant treatment. ?? Reason for Admission: Postoperative care ?? Hospital Course: The patient was found to have a bulky exophytic supraglottic tumor with extension to left pyriform sinus and left lateral pharynx with extension to inferior portion of left tonsil. Patient underwent bilateral IIa-IV, neck dissection, left hemithyroidectomy, total laryngectomy and partial pharyngectomy closed with primary T-type closure, with placement of 8CN75H trach tube in laryngectomy stoma. A primary TEP was performed with placement of 16fr NGT. Patient tolerated the above procedure welland was admitted post-operatively for routine care. Patient was admitted to NSCU and ultimately transitioned to med- surg floor. ?? Patient was changed to 6UN75H trach and ultimately a Provox. Patient had very minimal oxygen requirement immediately postoperatively, however, the etiology was never elucidated and the patient was weaned to RA over the next few days.The patient was on heated trach collar throughout his stay. ?? Additionally, the patient received tube feeds and medications through his NGT functioning as a TEP.Patient was ultimately transitioned to a clear liquid diet on POD 7 with no evidence of leak. He was transitioned to full liquid diet prior to discharge. The NGT was removed in clinic and CHERISE Londono evaluated the patient and sized him for a more permanent TEP. The patient was instructed not to use the TEP for speaking until follow up. Patient opted to discuss the electrolarynx at the follow up visit as well. ?? The patient had bilateral neck drains which were removed on POD8. Kristen were removed prior to discharge. ?? His hospital course was uncomplicated and he was deemed medically stable for discharge home at 8 Days Post-Op. ?? Prior to discharge his pain was controlled on oral pain meds and he was tolerating a Full Liquid. During his hospitalization, PT/OT and Speech were consulted. ?? Patient was seen by Diabetes management throughout his stay and they advised on insulin for his progressing diet. A plan for medications on discharge was made with DM and the patient confirmed his understanding. ? Discharge date: 05/07/2021 . Discharged with full liquid diet. Airway status: Total laryngectomy with TEP in place New issues since discharge: He is having some pain and swelling along the incision. No fevers. His airway is patent. The TEP is in place but the plan is not to start to use it for a few more weeks. He is taking in puree foods. No problems with swallowing. He did have a little blood in his sputum initially but that has improved. He has been using the suction for his airway. He has been applying aquaphor on the incision and the rena tube. He has lost weight since the surgery but his weight is 360lbs currently and has been stable. Focused ROS: Fevers, chillls, unexplained fatigue: no Nausea/vomiting/abdominal pain/change in stool pattern: no Cough/choking: no Dyspnea: no Incisional drainage, edema, erythema: Incision pain with mild edema Pain: Around the incision PROBLEM LIST Patient Active Problem List Diagnosis Code ??? Panniculitis M79.3 ??? Diabetes mellitus type 2, uncontrolled (DM) E11.65 ??? Morbid obesity E66.01 ??? Hypertension (HTN) I10 ??? Tobacco abuse Z72.0 ??? 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 Status post laryngectomy Z90.02 ??? Throat cancer C14.0 PAST MEDICAL HISTORY Past Medical History: Diagnosis Date ??? Diabetes mellitus ??? Obesity ??? Panniculitis ??? Throat cancer SOCIAL HISTORY Social History Tobacco Use ??? Smoking status: Current Every Day Smoker Packs/day: 1.50 Years: 24.00 Pack years: 36.00 Types: Cigarettes ??? Smokeless tobacco: Never Used ??? Tobacco comment: Declines Tobacco cessasion referral at this time. Substance Use Topics ??? Alcohol use: No Alcohol/week: 0.0 standard drinks Comment: rare alcohol MEDICATIONS Current Outpatient Medications on File Prior to Visit Medication Sig Dispense Refill ??? lisinopriL (Zestril) 10 mg Tablet Take 1 tablet by mouth daily. 30 tablet 12 ??? insulin glargine (Lantus;Semglee) Solution Inject 28 Units subcutaneously nightly. (Patient nottaking: Reported on 05/13/2021) 10 mL 12 ??? insulin aspart U-100 (NovoLOG) Solution Inject 5 Units subcutaneously 3 times daily (before meals). (Patient not taking: Reported on 05/13/2021) 10 mL 12 ??? acetaminophen (Tylenol) 325 [...] PHYSICAL EXAMINATION General: Well developed, no distress Weight: 360 lb Head/face: Normocephalic, atraumatic Oral cavity: Normal exam of the lips, gums, floor of mouth, tongue. Normal oral mucosa. Normal palate wnl Oropharynx: Normal soft palate, tonsils, lateral pharyngeal wall, posterior pharynx wnl Neck: Stoma with mild erythema and crusting along the it. Some crusting just inside the stoma. TEP in place Trachea midline. Resp: no stridor, normal respirations. Skin: Incision: c/d/i no evidence of infection MSK: No trismus, normal neck range of motion Neuro: AxOx3; CN II-XII is grossly intact Psych: Normal mood and affect. Responds appropriately to questions. Pathology/Head & Neck Tumor Board Review: ? Surgical Pathology DIAGNOSIS A - Inter-arytenoid, biopsy ?? [...] DO Verified: ??05/07/2021 16:08 ??Pathologist Performed at: ??-[facility] Dept. of Pathology, [place], [place] SYNOPTIC Specimen ?Procedure: ??Total laryngectomy; ??Partial [...] Findings ?Additional Findings: ??Benign paty thyroid gland Comments ?K8 Tumor Block(s): ??K1 Tumor Board Review Reviewed this am at Tumor Board. The recommendation is to be evaluated by in [facility] for radiation PROCEDURES n/a IMAGE REVIEW N/a ASSESSMENT/RECOMMENDATIONS Assessment: hx of [id number] SCCa of supraglottic larynx s/p bilateral neck dissection, left paty thyroidectomy, total laryngectomy, partial pharyngectomy performed on 04/29/2021 with ;; Doing well. Recommendations: Plan to wait for 2 weeks for a recheck with Fco Ball, speech pathologist and Bettina before using the TEP. He can continue with puree food for a week and then if toleratedprogress to a soft diet. Continue to use the Aquaphor around the stoma and on the incision. Monitorfor any infection issues. RTC in 2 weeks or sooner if needed Referrals: Radiation oncology at [facility]. documented in this encounter Plan of Treatment Upcoming Encounters Date Type Department Care Team (Late st Contact Info) Description 02/02/2024 3:00 PM EST Office Visit Radiation Oncology at [address] [phone] Ag Cruz MD [facility] [place] [address] Scheduled Referrals Name Type Priority Associated Diagnoses Orde r Schedule Referral to Radiation Oncology Outpatient Referral Routine Larynx cancer Ordered: 05/15/2021 documented as of this encounter Visit Diagnoses Diagnosis Larynx cancer Malignant neoplasm of larynx, unspecified site Postoperative examination Follow-up examination, following unspecified surgery documented in this encounter Care Teams Neuroradiologist Relationship Specialty Start Date End Date Weston Tobias PA [address] [place] [address] PCP - General Family Medicine 02/25/21 documented as of this encounter
--- OUTSIDE RECORDS SUMMARY | 2023-12-01 16:01 | XMS_ITS | Encounter Summary ---
Author Organization [facility] Address [facility] [place] [address] Care Team Providers Care Infantry Assaultman Name Role Phone Weston Tobias Primary Care Provider [phone]- [phone] Encounter Details Date Type Department Care Team (Late st Contact Info) Description 05/21/2021 10:00 AM EDT Office Visit Hematology/Oncology at [address] [phone] Jennifer Cantrell, [facility] [address] [place] [address] Status post laryngectomy Social History Tobacco Use [...] Progress Notes * Jennifer Cantrell, RD - 05/21/2021 10:00 AM EDT [facility] Nutrition Assessment Progress Note Reggie Pena Sr. Diagnosis: hx of [id number] SCCa of supraglottic larynx s/p bilateral neck dissection, left paty thyroidectomy, total laryngectomy, partial pharyngectomy performed on 04/29/2021 Wt Readings from Last 3 Encounters: 05/21/21 (!) 148.1 kg (326 lb 9.6 oz) 05/15/21 (!) 163.3 kg (360 lb) 04/30/21 (!) 163.3 kg (360 lb) *daughter reports weight on 05/15 is incorrect. She believes he was in the 330's last week at [facility]. 04/24/21 (!) 158.7 kg (349 lb 14.4 oz) 04/14/21 (!) 160.5 kg (353 lb 14.4 oz) 04/07/21 (!) 160.6 kg (354 lb) BMI 44.3 UBW almost 500 pounds per patient 333# one week ago at PCP's office per daughter, suggesting 7# loss in past week. He has lost 34# in the past 3 weeks (9.4% body weight) since discharge from the hospital--severe. Assessment: Nutrition Screen 05/22/2021 04/29/2021 Reason for assessment Symptom management;High risk diagnosis;Unintentional weight loss - Total MST Score - 5 Functional Status 05/22/2021 04/28/2021 Appetite Reduced compared to usual intake Reduced compared to usual intake Blood glucose levels Controlled Hypergylcemic Constipation Grades Grade 1: Occasional/intermittent symptoms, occasional use of stool softeners, laxatives, dietary modification or enema - Dysphagia Grades Grade 2: symptomatic and altered eating/ swallowing Grade 3: severely altered eating/ swallowing, tube feeding or TPN or hospitalization indicated Dentition Edentulous - Odynophagia - Present Blood glucose is well controlled, ranging 140-190 mg/dl. Patient is taking Metformin (dose?) once daily at night. He is not taking glipizide or insulin. PCP is managing this now. Patient has an appointment with PCP this month. Patient has dysphagia due to s/p bilateral neck dissection, left paty thyroidectomy, total laryngectomy, partial pharyngectomy performed on 04/29/2021. He was discharged on full liquid diet on 05/07/21. He upgraded himself to purees. ENT provider recommended staying with purees until 05/22, then advancing to a soft diet. Patient has ENT and [employer] f/u appointments on 06/05. He reports no difficulty with choking or coughing with pureed foods or thin liquids. Patient is edentulous. Patient is communicating with gestures and mouthing words today. He did not want to use writing to communicate. Plan to start using electrolarynx soon. BG 140-190: Metformin at night, no glipizide, no insulin. Patient's vgrgucks-ks-rps says he has been constipated. Patient reports he has a BM once daily. He did take colace recently which was helpful per daughter. Family reports patient has been depressed since returning home from his surgery. Of note, patient and family say [employer] is providing the wrong trach collars. The ones they currently have are too difficult to put on. The trach collars that work well for Reggie are [employer]. Encouraged them to contact their [employer] about this again. Food History, Access and Intake 05/22/2021 Use of oral nutritional supplements Premiere Protein Patient has been following a pureed diet since shortly after discharge from [facility] on 05/07, though has had some cottage cheese. His intake includes: Premier protein shakes, high protein chocolate milk,pudding, mashed potato and gravy, cottage cheese, soup, scrambled eggs, powerade, gingerale. ENT provider last week said patient was ok to advance to soft diet on 05/22. Per general surgery note on 04/29 during inpatient stay: patient was consented for PEG, open, and lap assisted G tube but ENT requested we only attempt PEG and not open or lap assisted at this time. Feeding tube while inpatient was an NGT through stoma and into esophagus functioning as TEP. Food Insecurity Screening 04/07/2021 Within the past 12 months, the food you bought just didn't last and you didn't have money to get more. 1 Malnutrition Characteristics 05/22/2021 Insufficient Energy Intake Present Malnutrition in the context of chronic illness Moderate: < 75% estimated intake needs for greater than one month Medications: Lisinopril, tylenol prn, Metformin 1000 mg once daily at night Patient met with Dr. Cruz today. Possible adjuvant treatment is being considered. Labs on 05/04: BG 127, Bun 15, Creat 0.49, Na 136, K 3.6, Ca 8.1 Nutrition Diagnosis 05/22/2021 04/28/2021 Problems Inadequate oral intake;Involuntary weight loss;Swallowing difficulty Swallowing difficulty related to s/p bilateral neck dissection, left paty thyroidectomy, total laryngectomy, partial pharyngectomy performed on 04/29/2021 as evidenced by 34# loss in the past 3 weeks (9.4% body weight) since discharge from the hospital--severe. Intervention: * Encouraged patient to advance to mechanical soft diet. Encouraged increased intake, including eating/drinking every 2-3 hours. Discussed adding fats to foods to increase caloric content without raising blood glucose. Provided printed list of soft, moist high protein foods. * Recommended switching to Glucerna or Boost Glucose Control twice daily which have more calories than the Premier protein drinks he is currently drinking. Follow Up: Will f/u by phone on 06/11 Note: Please see Hematology/Oncology malnutrition flowsheet for complete RD assessment/documentation documented in this encounter Plan of Treatment Upcoming Encounters Date Type Department Care Team (Late st Contact Info) Description 02/02/2024 3:00 PM EST Office Visit Radiation Oncology at [address] [phone] Ag Cruz MD [facility] [place] [address] documented as of this encounter Visit Diagnoses Diagnosis Status post laryngectomy Other postprocedural status documented in this encounter Care Teams Infantry Assaultman Relationship Specialty Start Date End Date Weston Tobias PA [address] [place] [address] PCP - General Family Medicine 02/25/21 documented as of this encounter
--- OUTSIDE RECORDS SUMMARY | 2023-12-01 16:01 | XMS_ITS | Encounter Summary ---
Author Organization [facility] [place] [address] Care Team Providers Care Wood Patternmaker Apprentice Name Role Phone Weston Tobias Primary Care Provider [phone] Reason for Visit * Auth/Cert Specialty Diagnoses / Procedures Referred By Jose A t Referred To Contact Diagnoses supraglottic/hypopharyngeal cancer Procedures PRO PART REMV LARYNX, HORIZONTAL PRO REMOVAL NODES, NECK, CERV MOD RAD PRO PARTIAL REMOVAL OF PHARYNX PRO MUSCLE-SKIN FLAP, TRUNK @LARYNGECTOMY, PARTIAL, HORIZONTAL (WRVU 27.57) @CERVICAL LYMPHADENECTOMY (MODIFIED RADICAL NECK DISSECTION) (WRVU 23.95) PHARYNGECTOMY, LIMITED (WRVU 19.13) FLAP, MYOCUTANEOUS OR FASCIOCUTANEOUS, TRUNK (WRVU 19.86) Referral ID Status Reason Start Date Expiration Date Visits Re quested Visits Authorized [id number] 1 1 Encounter Details Date Type Department Care Team (Latest Contact Info) Description 04/29/2021 7:28 AM EDT - 05/07/2021 6:55 PM EDT Hospital Encounter [address] [place] [address] Mat Casper MD [facility] [place] [address] Laryngeal cancer; Dysphagia, unspecified type; Status post laryngectomy Discharge Disposition: Home with VNA Social History Tobacco Use Types Packs/Day Years [...] Sign Reading Time Taken Comments Blood Pressure 164/96 05/07/2021 4:48 PM EDT Pulse 75 05/07/2021 5:32 AM EDT Temperature 36.7 ??C (98.1 ??F) 05/07/2021 3:53 PM ED T Respiratory Rate 18 05/07/2021 3:53 PM EDT Oxygen Saturation 94% 05/07/2021 4:48 PM EDT Inhaled Oxygen Concentration - - Weight 163.3 kg (360 lb) 04/30/2021 12:33 AM EDT Height 182.9 cm (6') 04/30/2021 12:33 AM EDT Body Mass Index 48.82 04/30/2021 12:33 AM EDT documented in this encounter Discharge Summaries * Stephy Bianchi MD - 05/07/2021 10:53 AM EDT OTOLARYNGOLOGY - HEAD & NECK SURGERY DISCHARGE SUMMARY General Info Patient Name: Reggie Pena Sr. Patient Age: 50 y.o. Birthdate: 1970 Admit date: 04/29/2021 Discharge date: 05/07/21 Attending Physician: Mat Casper MD Admission Info Diagnoses: [id number] SCCa of supraglottic larynx Operations/Major Procedures: Procedure(s) (LRB): @PHARYNGOLARYNGECTOMY, NECK DISSECTION, NO RECON (WRVU 42.51) (Bilateral) GLOSSECTOMY, LESS THAN ONE-HALF TONGUE (WRVU 11.14) (Bilateral) RADICAL RESECTION OF TONSIL, PILLARS, RETROMOLAR TRIGONE, NO CLOSURE (WRVU 12.23) (Left) ENDOSCOPY, UPPER GI, DIAGNOSTIC, WITH OR WITHOUT SPECIMENS (N/A) LARYNGOSCOPY, MICROSCOPE, WITH BIOPSY (WRVU 3.55) (N/A) History of Presentation: Reggie Pena Sr. is a 50 y.o. male with PMH obesity, T2DM, HTN, Tobacco use (last this AM with plans to quit), with [id number] SCCa of the supraglottic larynx. Patient was seen by Dr. Casper in clinic with dysphagia and weight loss. PET scan demonstrated FDG avidity in left supraglottic larynx extending to left lingual tonsil and BOT with small bilateral cervical laurita mets. Patient was discussed at tumor board and plans were made for primary surgical resection with adjuvant treatment. Reason for Admission: Postoperative care Hospital Course: The patient was found to [...] and ultimately transitioned to med- surg floor. Patient was changed to 6UN75H trach and ultimately a Provox. Patient had very minimal oxygen requirement immediately postoperatively, however, the etiology was never elucidated and the patient was weaned to RA over the next few days.The patient was on heated trach collar throughout his stay. Additionally, the patient received tube feeds and [...] at the follow up visit as well. The patient had bilateral neck drains which were removed on POD8. Elysia were removed prior to discharge. His hospital course was uncomplicated and he was deemed medically stable for discharge home at 8 Days Post-Op. Prior to discharge his pain was controlled on oral pain meds and he was tolerating a Full Liquid. During his hospitalization, PT/OT and Speech were consulted. Patient was seen by Diabetes management throughout his stay and they advised on insulin for his progressing diet. A plan for medications on discharge was made with DM and the patient confirmed his understanding. Physical Exam on Discharge: General: NAD, non-ill appearing Face: Symmetric without dysmorphic features Eyes: EOMI, conjunctiva healthy Ears: Auricles symmetric, no lesions Nose: Patent nares, grossly normal appearance Oral Cavity/Pharynx: Mucosa is pink Neck: Soft,??laryngectomy stoma healing well, incisions intact, elysia OUT, CHERIE drain site healing well. TEP in place. Chest: Unlabored breathing, regular rate Neuro: Alert & oriented, moving extremities x 4 Lab Data: Recent Labs 05/07/21 0526 WBC 9.4 HGB 12.1* HCT 35.9* PLATELET 250 Imaging and Other Studies: XR Abdomen 1 view (Generic) Result Date: 05/06/2021 EXAMINATION: XR ABDOMEN 1 VIEW (GENERIC) CLINICAL HISTORY: NGT placement (passes through the stoma)TECHNIQUE: AP abdomen COMPARISON: Abdomen radiograph, April 29, 2021 FINDINGS: NG tube extends below the diaphragm with tip within the body of the stomach. A small amount of air within normal caliberlarge bowel, otherwise paucity of small bowel bowel gas in the visualized upper abdomen. Mild hazy opacities, likely atelectasis in the visualized lung bases. NG tube terminates within the stomach. Thank you for letting us participate in the care of this patient. If you are a health care provider and have any questions regarding this report, please contactthe number below. For patients who have questions please contact the health health care coach that requested your imaging first. Electronically signed by: Rosalina Carroll MD, [facility] ([phone]), at 05/06/2021 5:29 PM XR Abdomen 1 view (Generic) Result Date: 04/30/2021 EXAMINATION: XR ABDOMEN 1 VIEW (GENERIC) CLINICAL HISTORY: NGT Placement. Please page ENT Grain Manager onQgenda at [phone] for the okay to use. TECHNIQUE: Portable AP view of the abdomen for purposes of confirming enteric tube placement. COMPARISON: CT abdomen pelvis 07/03/2013 FINDINGS: Enteric tube courses below the diaphragm with tip and sidehole within the stomach. Paucity of bowel gas within the visualized abdomen. The left lung base is clear. Enteric tube with tip and sidehole within the stomach. Preliminary report signed by: Elder Bautista 04/30/2021 12:29 AM I have personally reviewed the image(s) and the resident's interpretation andagree with the findings, Keith Marinelli MD at 04/30/2021 12:38 AM Thank you for letting us participate in the care of this patient. If you are a health care provider and have any questions regarding this report, please contact the number below. For patients who have questions please contact the health health care coach that requested your imaging first. Electronically signed by: Keith Marinelli MD,[facility] ([phone]), at 04/30/2021 12:38 AM XR Fluoro Barium Swallow (Modified/Video Swallow Pharynx) Result Date: 04/25/2021 EXAMINATION: XR FLUORO BARIUM SWALLOW (MODIFIED/VIDEO SWALLOW PHARYNX) CLINICAL HISTORY: supraglottic/hypopharyngeal cancer, assess baseline swallowing function TECHNIQUE: The examination was performed in conjunction with speech pathology. Varying consistencies of barium were administered under lateral fluoroscopic observation. A 13 mm barium tablet was administered. Fluoro time: 1.48 minutes COMPARISON: CT neck dated 03/20/2021 FINDINGS: The oral phase of swallowing is normal. There is triggering of the swallow reflex at the level of the valleculae. There is thickening of the epiglottis without complete inversion. There is deep penetration with thin, nectar and soft solid consistency. Signifi cant residual pooling within the valleculae and piriform sinuses with intermittent aspiration of residual contrast. There is initiation of cough reflux with deep penetration and aspiration. Penetration of 13 mm barium tablet which patient is unable to swallow requiring patient to orally expel the pill. 1. Deep penetration with thin, nectar, and soft solid consistencies as well as barium swallow with 13 mm barium tablet. 2. Aspiration of residual fluid and contrast within the valleculae and piriformsinuses. Please see speech language pathologist's note for further details. I have personally reviewed the image(s) and the resident's interpretation and agree with the findings, Asad Marroquin MD at 04/25/2021 10:01 AM Thank you for letting us participate in the care of this patient. If you are a health care provider and have any questions regarding this report, please contact the number below. For patients who have questions please contact the health health care coach that requested your imaging first. Electronically signed by: Asad Marroquin MD, [facility] ([phone]), at 04/25/2021 10:01 AM Discharge Info Discharge Condition: Stable Discharge to: Home with VNA Discharge Medications: Your Medications Continued medications, unchanged Dose Details acetaminophen 325 mg Tab Commonly known as: Tylenol Take 2 tablets by mouth every 6 hours as needed for Pain or Fever. 650 mg Quantity: 30 tablet Refills: 1 glipiZIDE 10 mg Tab Commonly known as: GLUCOTROL Take 10 mg by mouth 2 times daily (before meals). 10 mg Refills: 0 insulin aspart U-100 Soln Commonly known as: NovoLOG Inject 5 Units subcutaneously 3 times daily (before meals). 5 Units Quantity: 10 mL Refills: 12 insulin glargine Soln Commonly known as: Lantus;Semglee Inject 28 Units subcutaneously nightly. 28 Units Quantity: 10 mL Refills: 12 lisinopriL 10 mg Tab Commonly known as: Zestril Take 1 tablet by mouth daily. 10 mg Quantity: 30 tablet Refills: 12 metFORMIN 1,000 mg Tab Commonly known as: GLUCOPHAGE Take 1,000 mg by mouth 2 times daily (with meals). 1,000 mg Refills: 0 STOPPED Medications enoxaparin 40 mg/0.4 mL Syrg Commonly known as: Lovenox nystatin Crea Commonly known as: Mycostatin Updated Allergies/ADRs: No Known Allergies Info for Patient Patient Instructions Instructions for Patient at Discharge: What to expect: You will have soreness which will improve over the next several days. The area around the incision may be numb. This should recover over the next few months. Laryngectomy You underwent a laryngectomy. You are being discharged with a size 9/55 Provox stoma vent tube. Remove the tube to clean it and replace the straps as needed. You underwent teaching during your stay. Please continue to practice the techniques we discussed. Fco Ball provided you with a shower shield. Please use this any time you are in the shower. TEP: Fco Ball gave you a hand out regarding your TracheoEsophageal Voice Prosthesis. If you have any questions regarding care or management of this device, please contact the number provided below. Medications: Pain Control - use acetaminophen (Tylenol) and/or ibuprofen (Motrin, Advil) as needed. You can take 500 mg to 650 mg of Tylenol every 4-6 hours as needed. Do not exceed 4g acetaminophen per day and do not drink alcohol while taking tylenol. You can also take 400 to 600 mg of Ibuprofen (Motrin,Advil) every 6 hours as needed. Constipation - Consider the use of OTC Senna/Docusate, Miralax, Metamucil, prune juice or various suppositories if you have any constipation Incision Care: Your incision was closed with sutures/elysia. These were removed. Use diluted peroxide to clean the incision and apply Aquaphor/Vaseline twice daily. Keep the incision dry for the next two days. After that you may get the area wet and pat dry (it is okay to shower). Activity: A good rule of thumb is if it hurts don't do it. Keep your head elevated when lying flat. No heavy lifting or straining for the next week. No smoking, this is important for wound healing. You will no longer be able to submerge your neck in water as you have a laryngeal stoma. Diet: Continue the full liquid diet when you go home. This can be supplemented with protein shakes. You should call your doctor if you develop: -Difficulty breathing -Inability to replace the laryngectomy tube or the TEP if it falls out -Increasing pain and redness -Increasing drainage from the wound -Fever > 38.5Celsius or 101 Fahrenheit -Bleeding Contact: -You can reach the ENT clinic at [phone] for appointment questions. -The ENT triage nurse is available at [phone] -For urgent issues during evenings (5 PM - 7 AM) and weekends the ENT resident pharmacy operations specialist can be reached through the main hospital back hoe machine operator at [phone] Follow Up: You will need to follow up with the ENT clinic in 7-10 days. This appointment has been requested. You will be notified once it is scheduled, if you do not already see it below. If you do not hear from us in a timely manner, please call to receive your date and time. You will also need to follow up with Fco Ball in speech therapy, which has been set up for you, aswell. We will try our best to coordinate this with your other appointments. You will be notified once it is scheduled. If you do not see these appointments listed below and you don't hear from us in a timely manner, please call . Currently Scheduled Appointments: Future Appointments and Orders Future Appointments and Orders Future Appointments Provider Department Dept Phone 05/21/2021 9:00 AM Francia Madrid, APPAREL MANUFACTURE INSTRUCTOR Hematology/Oncology at [facility] Arrive at: [facility] door at end of hallway [phone] Future Orders Complete By Expires Durable Medical Equipment Order [EQ148 Custom] As directed Process Instructions: Scheduling Instructions: Comments: Tracheostomy Supplies Home Equipment Needs Medicaid: NO Narrative: Patient has a laryngectomy and requires supplies for home management. Laryngectomy: Platform Consultant: Provox Cuffed or Non-Cuffed: non cuffed Non-Fenestrated Change Monthly. Need back up tracheostomy tubes for Emergency: as ordered above and 1 available in home for emergency HARD COPY SCRIPT WILL BE FAXED TO VENDOR: [facility] [address] [place] [address] Questions: Name/Description of requested item: Laryngectomy tubes Size requested: Provox 9/55 Vendor Name/Contact information: [employer] Durable Medical Equipment Order [EQ148 Custom] As directed Process Instructions: Scheduling Instructions: Comments: Tracheostomy Supplies Home Equipment Needs Medicaid: NO Narrative: Patient has a laryngectomy and requires suctioning, humidification, and supplies for home management. Laryngectomy tubes to be supplied by [email or web address] Trach Supplies: Adult Velcro Trach Ties, change daily and PRN if soiled/wet #40 per month Trach cleaning kits: 30 (find out what is in them- some have trach sponges already) Saline bullets: 1 box 2 bottles of 250cc of NS Cotton tip applicators: 1 box 4x4 trach sponges, change once to twice daily, as needed: #60 per month Trach mask and collar with tubing: #8 per month Portable and stationary suction AC/DC unit Suction Catheters: Size: Fr 14 #30 per month Yankauer suction tube: #12 per month Suction connection tubing, long and short Cool Humidified Air via trach collar with sterile water/HME's 2 50 PSI compressor Blue tubing 10 feet: 4 per month Tracheostomy mask/collars with tubing #4 per month Sterile water - #2-4 cases per month IV pole for water bag: #1 Ambu bag for trach with O2 cylinder for emergency use. Please deliver to patient's home address by 05/08 HARD COPY SCRIPT TO BE FAXED TO: [facility] [employer] [facility] (Resp Supplies) Central Intake: [place]: [place]: -They cover all [place] Questions: Name/Description of requested item: Tracheostomy supplies, suction and humidification Size requested: standard Vendor Name/Contact information: [employer] Referral to Home Health - at DISCHARGE [[id number] CPT(R)] As directed Process Instructions: Scheduling Instructions: Comments: DOCUMENTATION FOR VNA SERVICES (INCLUDING THOSE PATIENTS WITH MEDICARE COVERAGE REQUIRING HOME VNA SERVICES AND/OR HOSPICE SERVICES) PATIENT'S LOCATION: Reggie Roland Jean [address] [place] [address] (home) Cell: Telephone Information: Special Forces Warrant Officer's Name: pt and family/friends In discussion with the attending physician, it is certified that this patient is under their care and that they, or a Nurse Practitioner,Clinical Nurse specialist or Physician Plater Printed Circuit Board Panels who is working directly with them, had a face to face encounter that meets the physician face to face encounter requirements with this patient on 05/07 The encounter with the patient was in whole, or in part, for the following medical condition, whichis the primary reason for home health care services: 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 To provide the following care/treatments with the clinical findings supporting the need for services as follows: HOME CARE ORDERS: RN ORDERS:Assess wound or incision, vital signs, cardiopulmonary status, nutrition, hydration, elimination, meds effectiveness and management; reinforce education re health issues: Please apply aquaphor to incisions and assist patient with laryngectomy tube care (change straps, clean tube) APPAREL MANUFACTURE INSTRUCTOR:For Management of speech and swallow function, and possible assist with electrolarynx. WELDING MACHINE FEEDER:For emotional support and community case management. HOME HEALTH CARE AGENCY: [facility]. PHONE: [phone] FAX: [phone] Start of care: 24-48 hours post discharge, preferably day after d/c r/t new trach and TEP Patient is not to use TEP until follow up with ENT in clinic. Please note that any additional orders needs or changes will need to be obtained from this patient's PCP: ELIDA Espinosa [address] / [place] [address] All VNA agencies which cover the area of patient's residence have been reviewed, either verbally mikal writing, and patient/family have chosen the home health care agency noted Questions: Agency name and contact information: [facility] Patient location post discharge: [place], [place] What services are requested: Speech Therapy Registered Nurse Social Work Start date: 05/07/2021 Responsible MD post discharge contact info: PCP General Instructions PT NEEDS TO CONTACT THIS VENDOR 24 HOURS AFTER DISCHARGE TO SET UP DELIVERY OF LARYNGECTOMY TUBES. [facility] [address] [place] [address] __ Your Medications Continued medications, unchanged Dose Details acetaminophen 325 mg Tab Commonly known as: Tylenol Take 2 tablets by mouth every 6 hours as needed for Pain or Fever. 650 mg Quantity: 30 tablet Refills: 1 glipiZIDE 10 mg Tab Commonly known as: GLUCOTROL Take 10 mg by mouth 2 times daily (before meals). 10 mg Refills: 0 insulin aspart U-100 Soln Commonly known as: NovoLOG Inject 5 Units subcutaneously 3 times daily (before meals). 5 Units Quantity: 10 mL Refills: 12 insulin glargine Soln Commonly known as: Lantus;Semglee Inject 28 Units subcutaneously nightly. 28 Units Quantity: 10 mL Refills: 12 lisinopriL 10 mg Tab Commonly known as: Zestril Take 1 tablet by mouth daily. 10 mg Quantity: 30 tablet Refills: 12 metFORMIN 1,000 mg Tab Commonly known as: GLUCOPHAGE Take 1,000 mg by mouth 2 times daily (with meals). 1,000 mg Refills: 0 STOPPED Medications enoxaparin 40 mg/0.4 mL Syrg Commonly known as: Lovenox nystatin Crea Commonly known as: Mycostatin Scheduled Appointments: Future Appointments Date Time Provider Department Center 05/21/2021 9:00 AM Francia Madrid, APPAREL MANUFACTURE INSTRUCTOR [facility] Outpatient Services/Studies: Referral to Home Health - at DISCHARGE Order Comments: DOCUMENTATION FOR VNA SERVICES (INCLUDING THOSE PATIENTS WITH MEDICARE COVERAGE REQUIRING HOME VNA SERVICES AND/OR HOSPICE SERVICES) PATIENT'S LOCATION: Reggie Pena Sr. [address] [place] [address] [address] [place] [address] (home) Cell: Telephone Information: Special [employer] Warrant Officer's Name: pt and family/friends In discussion with the attending physician, it is certified that this patient is under their care and that they, or a Nurse Practitioner,Clinical Nurse specialist or Physician Plater Printed Circuit Board Panels who is working directly with them, had a face to face encounter that meets the physician face to face encounter requirements with this patient on 05/07 The encounter with the patient was in whole, or in part, for the following medical condition, whichis the primary reason for home health care services: 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 To provide the following care/treatments with the clinical findings supporting the need for services as follows: HOME CARE ORDERS: RN ORDERS:Assess wound or incision, vital signs, cardiopulmonary status, nutrition, hydration, elimination, meds effectiveness and management; reinforce education re health issues: Please apply aquaphor to incisions and assist patient with laryngectomy tube care (change straps, clean tube) APPAREL MANUFACTURE INSTRUCTOR:For Management of speech and swallow function, and possible assist with electrolarynx. WELDING MACHINE FEEDER:For emotional support and community case management. HOME HEALTH CARE AGENCY: [facility] PHONE: [phone] FAX: [phone] Start of care: 24-48 hours post discharge, preferably day after d/c r/t new trach and TEP Patient is not to use TEP until follow up with ENT in clinic. Please note that any additional orders needs or changes will need to be obtained from this patient's PCP: ELIDA Espinosa [address] / [place] [address] All VNA agencies which cover the area of patient's residence have been reviewed, either verbally mikal writing, and patient/family have chosen the home health care agency noted Question Response Notes [facility] Patient location post discharge [place], [place] What services are requested Speech Therapy What services are requested Registered Nurse What services are requested Social Work Start date 05/07/2021 Responsible MD post discharge contact info PCP Primary Care Doctor: ELIDA Espinosa [phone] Signed: Stephy Bianchi MD 05/07/2021 Routed to Grace Chan and Gladys Granados since H&N Cancer patient documented in this encounter Discharge Instructions * Discharge Instructions* Milagros Roy Madina, JANITORIAL ASSISTANT - 05/02/2021 12:52 PM EDT PT NEEDS TO CONTACT THIS VENDOR 24 HOURS AFTER DISCHARGE TO SET UP DELIVERY OF LARYNGECTOMY TUBES. [facility] [place] [address] Diabetes Discharge Instructions Please test blood sugars 4 times daily prior to meals and at bedtime. Please test blood sugars withany symptoms. If blood sugar prior to bed time is less than 120mg/dl, please have a small snack. Please reintroduce your metformin and glipizide slowly. Instructions for Lantus Insulin (LONG ACTING) Inject LANTUS 17 units insulin every day. [...] new dose, continue to decrease as Needed. When you are ready to start Metformin and Glipizide. Please decrease your dose of Lantus to 10 units. Start with one tab of each in the morning and do this for about a week before increasing your dose.Again refer to above (steps 2 and 3) for adjusting your Lantus dose based on glucose levels. When increasing to your Metformin and Glipizide to twice daily. Stop your Lantus dosing and refer to Humalog corrections scale if needed. Instructions for Mealtime Humalog Correction Insulin This is the rapid-acting insulin, used at mealtime to prevent a high BG after you eat. Check your BG before each meal. Your correction dose is 1 unit for every 20 points that your BG is above 140. Which means 1 units of insulin will decrease your blood glucose level by 20 points. ADD the following insulin if your before-meal BG is higher than 140: Blood Sugar NOVOLOG DOSE 140-160 ADD 1 [...] to help with the high blood sugar. Treatment of Low Blood Sugar (Hypoglycemia) If [...] day to have your insulin doses adjusted. If you have any issues, please call our office at and ask for Diabetes Management Team. * Patient Instructions* Stephy Bianchi MD - 05/07/2021 10:42 AM EDT Instructions for Patient at Discharge: What to expect: You will have soreness which will improve over the next several days. The area around the incision may be numb. This should recover over the next few months. Laryngectomy You underwent a laryngectomy. You are being discharged with a size 9/55 Provox stoma vent tube. Remove the tube to clean it and replace the straps as needed. You underwent teaching during your stay. Please continue to practice the techniques we discussed. Fco Ball provided you with a shower shield. Please use this any time you are in the shower. TEP: Fco Ball gave you a hand out regarding your TracheoEsophageal Voice Prosthesis. If you have any questions regarding care or management of this device, please contact the number provided below. Medications: Pain Control - use acetaminophen (Tylenol) and/or ibuprofen (Motrin, Advil) as needed. You can take 500 mg to 650 mg of Tylenol every 4-6 hours as needed. Do not exceed 4g acetaminophen per day and do not drink alcohol while taking tylenol. You can also take 400 to 600 mg of Ibuprofen (Motrin,Advil) every 6 hours as needed. Constipation - Consider the use of OTC Senna/Docusate, Miralax, Metamucil, prune juice or various suppositories if you have any constipation Incision Care: Your incision was closed with sutures/elysia. These were removed. Use diluted peroxide to clean the incision and apply Aquaphor/Vaseline twice daily. Keep the incision dry for the next two days. After that you may get the area wet and pat dry (it is okay to shower). Activity: A good rule of thumb is if it hurts don't do it. Keep your head elevated when lying flat. No heavy lifting or straining for the next week. No smoking, this is important for wound healing. You will no longer be able to submerge your neck in water as you have a laryngeal stoma. Diet: Continue the full liquid diet when you go home. This can be supplemented with protein shakes. You should call your doctor if you develop: -Difficulty breathing -Inability to replace the laryngectomy tube or the TEP if it falls out -Increasing pain and redness -Increasing drainage from the wound -Fever > 38.5Celsius or 101 Fahrenheit -Bleeding Contact: -You can reach the ENT clinic at [phone] for appointment questions. -The ENT triage nurse is available at [phone] -For urgent issues during evenings (5 PM - 7 AM) and weekends the ENT resident pharmacy operations specialist can be reached through the main hospital back hoe machine operator at [phone] Follow Up: You will need to follow up with the ENT clinic in 7-10 days. This appointment has been requested. You will be notified once it is scheduled, if you do not already see it below. If you do not hear from us in a timely manner, please call to receive your date and time. You will also need to follow up with Fco Ball in speech therapy, which has been set up for you, aswell. We will try our best to coordinate this with your other appointments. You will be notified once it is scheduled. If you do not see these appointments listed below and you don't hear from us in a timely manner, please call . You had elevated blood pressure and blood sugar while you were in the hospital. You will need to follow up with your PCP within the next 1-5 days. Currently Scheduled Appointments: Future Appointments and Orders Future Appointments and Orders Future Appointments Provider Department Dept Phone 05/21/2021 9:00 AM Francia Madrid, APPAREL MANUFACTURE INSTRUCTOR Hematology/Oncology at [facility] Arrive at: [facility] door at end of hallway [phone] Future Orders Complete By Expires Durable Medical Equipment Order [EQ148 Custom] As directed Process Instructions: Scheduling Instructions: Comments: Tracheostomy Supplies Home Equipment Needs Medicaid: NO Narrative: Patient has a laryngectomy and requires supplies for home management. Laryngectomy: Platform Consultant: Provox 9/55 Cuffed or Non-Cuffed: non cuffed Non-Fenestrated Change Monthly. Need back up tracheostomy tubes for Emergency: as ordered above and 1 available in home for emergency HARD COPY SCRIPT WILL BE FAXED TO VENDOR: [employer] [facility] [place] [address] Questions: Name/Description of requested item: Laryngectomy tubes Size requested: Provox 9/55 Vendor Name/Contact information: [employer] Durable Medical Equipment Order [EQ148 Custom] As directed Process Instructions: Scheduling Instructions: Comments: Tracheostomy Supplies Home Equipment Needs Medicaid: NO Narrative: Patient has a laryngectomy and requires suctioning, humidification, and supplies for home management. Laryngectomy tubes to be supplied by [facility] Trach Supplies: Adult Velcro Trach Ties, change daily and PRN if soiled/wet #40 per month Trach cleaning kits: 30 (find out what is in them- some have trach sponges already) Saline bullets: 1 box 2 bottles of 250cc of NS Cotton tip applicators: 1 box 4x4 trach sponges, change once to twice daily, as needed: #60 per month Trach mask and collar with tubing: #8 per month Portable and stationary suction AC/DC unit Suction Catheters: Size: Fr 14 #30 per month Yankauer suction tube: #12 per month Suction connection tubing, long and short Cool Humidified Air via trach collar with sterile water/HME's 2 50 PSI compressor Blue tubing 10 feet: 4 per month Tracheostomy mask/collars with tubing #4 per month Sterile water - #2-4 cases per month IV pole for water bag: #1 Ambu bag for trach with O2 cylinder for emergency use. Please deliver to patient's home address by 05/08 HARD COPY SCRIPT TO BE FAXED TO: [facility] (Resp Supplies) Central Intake: [place]: [place]: -They cover all [place] Questions: Name/Description of requested item: Tracheostomy supplies, suction and humidification Size requested: standard Vendor Name/Contact information: [facility] Referral to Home Health - at DISCHARGE [[id number] CPT(R)] As directed Process Instructions: Scheduling Instructions: Comments: DOCUMENTATION FOR VNA SERVICES (INCLUDING THOSE PATIENTS WITH MEDICARE COVERAGE REQUIRING HOME VNA SERVICES AND/OR HOSPICE SERVICES) PATIENT'S LOCATION: Reggie Pena [address] [place] [address] (home) Cell: Telephone Information: [employer] Warrant Officer's Name: pt and family/friends In discussion with the attending physician, it is certified that this patient is under their care and that they, or a Nurse Practitioner,Clinical Nurse specialist or Physician Plater [employer]els who is working directly with them, had a face to face encounter that meets the physician face to face encounter requirements with this patient on 05/07 The encounter with the patient was in whole, or in part, for the following medical condition, whichis the primary reason for home health care services: 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 To provide the following care/treatments with the clinical findings supporting the need for services as follows: HOME CARE ORDERS: RN ORDERS:Assess wound or incision, vital signs, cardiopulmonary status, nutrition, hydration, elimination, meds effectiveness and management; reinforce education re health issues: Please apply aquaphor to incisions and assist patient with laryngectomy tube care (change straps, clean tube) APPAREL MANUFACTURE INSTRUCTOR:For Management of speech and swallow function, and possible assist with electrolarynx. WELDING MACHINE FEEDER:For emotional support and community case management. HOME HEALTH CARE AGENCY: [facility]. PHONE: [phone] FAX: [phone] Start of care: 24-48 hours post discharge, preferably day after d/c r/t new trach and TEP Patient is not to use TEP until follow up with ENT in clinic. Please note that any additional orders needs or changes will need to be obtained from this patient's PCP: ELIDA Espinosa [address] / [place] [address] All [facility] agencies which cover the area of patient's residence have been reviewed, either verbally mikal writing, and patient/family have chosen the home health care agency noted Questions: Agency name and contact information: [facility] Patient location post discharge: [place], [place] What services are requested: Speech Therapy Registered Nurse Social Work Start date: 05/07/2021 Responsible MD post discharge contact info: PCP documented in this encounter Medications at Time of Discharge Medication Sig Dispensed Refills Start Date End Date insulin glargine (Lantus;Semglee) Solution Inject 28 Units [...] by mouth 2 times daily (before meals). lisinopriL (Zestril) 10 mg Tablet Take 1 tablet by mouth daily. 30 tablet 12 05/07/2021 12/11/2021 metFORMIN (GLUCOPHAGE) 1,000 mg TabletIndications:ty pe 2 diabetes mellitus Take 1,000 mg by mouth 2 times daily. Indications: type 2 diabetes mellitus 06/09/2023 documented as of this encounter Progress Notes * Octavia Arteaga RN - 05/07/2021 6:54 PM EDT BG elevated today, administering insulin per orders. BP elevated 160s/90s, treated with PRN labetolol. Notified MD Stephy Bianchi of elevated BG and BP. secure chatted that team is aware of BP and BG issues and patient understands he will follow up with PCP to address management. Pt being discharged home. Rena tube teaching completed with patient and daughter. To-go suction kit provided to patient. DC summary faxed to Home Health Agency and called report. Removed PIVs per orders. Reviewed AVS w/patient and daughter. Patient leaving in wheelchair to Main Entrance where ride is waiting for him. * Jocelyn Hernandez RN - 05/07/2021 11:33 AM EDT Met with patient regarding homegoing. He is not sure who is coming to pick him up this afternoon, but has a ride in the works. He has completed RENA tube care and is comfortable with this for home. [facility] referral in place. [facility] coming to do bedside teach/delivery of portable suction today so that pt will have suction going home. Remainder of respiratory supplies inclu ding humidification, as well as RT visit, tomorrow at home. Call placed to [facility] (Laryngectomy/provox tube supplier) to notify them of plan to discharge patienthome today; requesting info whether they have assigned a contact CM for Mr. Pena. General number is [phone]. * Nicola Roycolby Painter, JANITORIAL ASSISTANT - 05/07/2021 9:54 AM EDT Follow Up Diabetes Consult Patient Interview Glucose levels and insulin use reviewed. TF being discontinued. Objective Temp: [36.4 ??C (97.5 ??F)-36.7 ??C (98.1 ??F)] Heart Rate: [72-77] Resp: [15-20] BP: (147-194)/(88-106) SpO2: [90 %-98 %] Heart Rate from SpO2: [69 bpm-78 bpm] Current Regimen from previous note 1. Lantus??17??units qd 2. Lispro custom correction scale for BG??1:20??>140 3. Meal-associated Lispro ??1unit: 10??gm carb ratio for each meal 4.??For??Impact peptide 1.5??tube feed - ??140??grams of carbohydrate per 1000 cc With 375 ml per bolus feeds at 0900,1300, 1700, 2100 use at the start of the feed as his calculatedINsulin to CHO rate is 1:7--will use 7 units lispro at start of each feed 5. Diet: Clear liquid diet Recent Glucose Levels Recent Labs 05/07/21 0748 05/07/21 0532 05/06/21 2355 05/06/21 2051 05/06/21 1641 05/06/21 1211 05/06/21 1128 05/06/21 0911 05/06/21 0346 05/05/21 2345 05/05/21 2201 05/05/21 1919 POCGLU 190 167 166 205* 213* 196 175 167 187 198 195 256* ASSESSMENT Patient is a??50 y.o.??years old male??with PMH significant for DM ??who was admitted on 04/29/2021??for status post laryngectomy. ??Diabetes suboptimally controlled and currently complicated by elevated glucose levels. ??Currently with variability of blood glucose levels while hospitalized requiring adjustment of insulin regimen and DM medications. ?? Tube feed is being discontinued, so corresponding insulin was also discontinued. No other changes made. Will continue to monitor. PLAN 1. Lantus??17??units qd 2. Lispro custom correction scale for BG??1:20??>140 3. Meal-associated Lispro ??1unit: 10??gm carb ratio for each meal 4.??Diet: Full liquid diet Pt being discharged. Diabetes Discharge Instructions Please test blood sugars 4 times daily prior to meals and at bedtime. Please test blood sugars withany symptoms. If blood sugar prior to bed time is less than 120mg/dl, please have a small snack. Please reintroduce your metformin and glipizide slowly. Instructions for Lantus Insulin (LONG ACTING) 1. Inject LANTUS 17 units insulin every [...] new dose, continue to decrease as Needed. When you are ready to start Metformin and Glipizide. Please decrease your dose of Lantus to 10 units. Start with one tab of each in the morning and do this for about a week before increasing your dose.Again refer to above (steps 2 and 3) for adjusting your Lantus dose based on glucose levels. When increasing to your Metformin and Glipizide to twice daily. Stop your Lantus dosing and refer to Humalog corrections scale if needed. Instructions for Mealtime Humalog Correction Insulin This is the rapid-acting insulin, used at mealtime to prevent a high BG after you eat. Check your BG before each meal. Your correction dose is 1 unit for every 20 points that your BG is above 140. Which means 1 units of insulin will decrease your blood glucose level by 20 points. ADD the following insulin if your before-meal BG is higher than 140: Blood Sugar NOVOLOG DOSE 140-160 ADD 1 [...] to help with the high blood sugar. Treatment of Low Blood Sugar (Hypoglycemia) If [...] day to have your insulin doses adjusted. If you have any issues, please call our office at and ask for Diabetes Management Team. Milagros Roy APRN [facility] Diabetes Management Pager [phone] minutes of this 35 minute visit was spent with the patient in counseling on diabetes and treatment plan, reviewing all glucose and insulin data as well as relevant laboratory results with the patient, and coordination of care on the inpatient unit including nursing and primary team. * Angie Khan RCP - 05/07/2021 9:10 AM EDT RT Tracheostomy Note Oxygen Delivery: Interface: None (Room air) ?? Pt received on above noted settings. He refused HTC and is hoping to discharge home this evening. Rena tube in place patient demonstrated competency in cleaning and care. EEQ and [facility]TGK [facility] at [facility] ?? PLAN: Continue to support. Angie Khan RCP * Stephy Bianchi MD - 05/07/2021 8:24 AM EDT OTOLARYNGOLOGY - HEAD & NECK SURGERY DAILY PROGRESS NOTE Name: Reggie Pena Sr. Age/Sex: 50 y.o. male Attending: Mat Casper MD Hospital Day: 9 8 Days Post-Op Patient ID/Reason for Admission Reggie Pena Sr. is a 50 y.o. male with PMH obesity, T2DM, HTN, Tobacco use (with plans to quit after this admission), with [id number] SCCa of the supraglottic larynx. Patient is now s/p total laryngectomy with bilateral neck dissections and placement of NGT through stoma and into esophagus functioning as TEP. Interval History Doing well. OOB to chair and for walks. Toleratin Provox. Tolerated clears will trial full liquids. Vitals Last value 24hr Range Temperature: 36.4 ??C (97.5 ??F) Temp: [36.4 ??C (97.5 ??F)-36.8 ??C (98.2 ??F)] Heart Rate: 75 Heart Rate: [72-77] Blood Pressure: (!) 147/103 (rechecked after labetalol) BP: (147-194)/(88-106) Respiratory Rate: 17 Resp: [15-20] SpO2: 94 % SpO2: [90 %-97 %] Intake & Output Intake/Output Summary (Last 24 hours) at 05/07/2021 0824 Last data filed at 05/07/2021 0600 Gross per 24 hour Intake 1980 ml Output 2005 ml Net -25 ml Physical Exam ?? General: NAD, non-ill appearing Face: Symmetric without dysmorphic features Eyes: EOMI, conjunctiva healthy Ears: Auricles symmetric, no lesions Nose: Patent nares, grossly normal appearance Oral Cavity/Pharynx: Mucosa is pink Neck: Soft, laryngectomy stoma healing well, incisions intact, bilateral CHERIE drains with serosanguinous output, staple line intact, hemostatic. Gastric tube sutured in place through stoma to esophagus. Chest: Unlabored breathing, regular rate Neuro: Alert & oriented, moving extremities x 4 Labs Recent Labs 05/07/21 0526 WBC 9.4 HGB 12.1* HCT 35.9* PLATELET 250 Imaging n/a *Personally reviewed and evaluated ASSESSMENT & PLAN Reggie Pena Sr. is a 50 y.o. male s/p laryngectomy and TEP placement, 8 Days Post-Op. Appears to be doing well. Patient was seen in clinic for removal of NGT, sizing of TEP, removal of CHERIE drains, removal of elysia. Patient will be discharged 05/07. PATIENT IS NOT TO USE TEP AFTER SIZING. Surgical/Head&Neck: Apply aquaphor to incisions Ok to clean laryngectomy trach tube as needed Current Provox with trach ties Saline bullets Qhour for secretions PRN Will advance to full liquids Neurologic: Pain controlled with acetaminophen [place], oxycodone PRN Cardiovascular: Home lasix, lisinopril Pulmonary: Oxygenation on HTC, duonebs [place], respiratory status improving Gastrointestinal: Zofran PRN Genitourinary: Guy out, UO adequate Musculoskeletal: OOB Fluids/Electrolytes: Repleting lytes Nutrition: Full Liquid Infectious Disease: Unasyn (dc) Hematology: Hemoglobin has been stable. Endocrine: Diabetes, on insulin (adjusted 05/02) 1. Lantus??17??units qd 2. Lispro custom correction scale for BG??1:20??>140 3. Meal-associated Lispro ??1unit: 10??gm carb ratio for each meal 4.??For??Impact peptide 1.5??tube feed - ??140??grams of carbohydrate per 1000 cc With 375 ml per bolus feeds at 9,1300, 1700, 2100 use at the start of the feed as his calculated INsulin to CHO rate is 1:10--will use 5 units lispro at start of each feed Consults: Endocrine, nutrition, PT/OT Lines: TEP in place, Provox, PIV Prophylaxis: Lovenox, SCD, ambulation, H2 Disposition: Floor status, Attempt Cardiopulmonary Resuscitation - Inpatient Discharge: Plan for d/c TBD ; Needs TF and VNA; Follow-up ENT Stephy Bianchi MD, PGY1 05/07/21 8:24 AM ENT Team Pager: [phone] * Warren Woo RCP - 05/07/2021 1:56 AM EDT Received Reggie Pena Sr. on RA with total laryngectomy, LaryTube in place -RR: 15, SpO2: 92% -pt declining humidification despite encouraged use Emergency equipment at bedside, pt declined trach care this evening Plan: Continue to follow for trach care, continue to encourage use of humidified air * Jocelyn Hernandez RN - 05/06/2021 12:06 PM EDT Following/covering for primaryCM. Pt will be switched to formula compatible with g tube and home care once ready for discharge, await final recommendations from Nutrition to update home care orders: potentially changing to Nutren 1.5. * Angie Khan RCP - 05/06/2021 11:56 AM EDT Respiratory Therapy Heated Humidified High Flow INDICATIONS: Heat/Humidification HIGH FLOW SETTINGS: Interface: Heated trach collar Flow: 30 L/min FiO2: 25 % VITAL SIGNS: HR: 85 RR: 20 SpO2: 97 % Trach airway: RENA tube in place secured with foam trach ties Skin Integrity: WDL ASSESSMENT: Reggie Pena Sr.??is a 50 y.o.??male??with PMH obesity, T2DM, HTN, Tobacco use (with plans to quit after this admission), with [id number] SCCa of the supraglottic larynx.??Patient is now s/p total laryngectomy with bilateral neck dissections and placement of NGT through stoma and into esophagus functioning as TEP. Rena tube is in place. Cleaned at request of patient and nurse. Per ENT note: Surgical/Head&Neck: Apply aquaphor to incisions Ok to clean laryngectomy trach tube as needed Pt received on above noted settings. EEQ and TTGK [facility] at [facility] PLAN: Continue to support. Angie Khan RCP * Milagros Roy, JANITORIAL ASSISTANT - 05/06/2021 8:26 AM EDT Follow Up Diabetes Consult Patient Interview Glucose levels and insulin use reviewed. Objective Temp: [36.8 ??C (98.2 ??F)-36.9 ??C (98.4 ??F)] Heart Rate: [81-99] Resp: [17-20] BP: (155-182)/(71-104) SpO2: [92 %-96 %] Heart Rate from SpO2: [78 bpm-90 bpm] Current Regimen from previous note 1. Lantus??17??units qd 2. Lispro custom correction scale for BG??1:20??>140 3. Meal-associated Lispro ??1unit: 10??gm carb ratio for each meal 4.??For??Impact peptide 1.5??tube feed - ??140??grams of carbohydrate per 1000 cc With 375 ml per bolus feeds at 9,1300, 1700, 2100 use at the start of the feed as his calculated INsulin to CHO rate is 1:10--will use 5 units lispro at start of each feed Recent Glucose Levels Recent Labs 05/06/21 0346 05/05/21 2345 05/05/21 2201 05/05/21 1919 05/05/21 1624 05/05/21 1213 05/05/21 0801 05/05/21 0414 05/04/21 2355 05/04/21 1928 05/04/21 1735 05/04/21 1113 POCGLU 187 198 195 256* 198 210* 134 119 156 212* 175 178 ASSESSMENT Patient is a??50 y.o.??years old male??with PMH significant for DM ??who was admitted on 04/29/2021??for status post laryngectomy. ??Diabetes suboptimally controlled and currently complicated by elevated glucose levels. ??Currently with variability of blood glucose levels while hospitalized requiring adjustment of insulin regimen and DM medications. Pt utilized 54 units and glucose baseline was remained at 160s. A total of 37 units were for tube feed and correction. Recommend increasing tube feed insulin by 2 units. Four doses of insulin with tube feeds equals 28 units. No other changes. PLAN 1. Lantus??17??units qd 2. Lispro custom correction scale for BG??1:20??>140 3. Meal-associated Lispro ??1unit: 10??gm carb ratio for each meal 4.??For??Impact peptide 1.5??tube feed - ??140??grams of carbohydrate per 1000 cc With 375 ml per bolus feeds at 0900,1300, 1700, 2100 use at the start of the feed as his calculatedINsulin to CHO rate is 1:7--will use 7 units lispro at start of each feed 5. Diet: Clear liquid diet . Milagros Roy APRN [facility] Diabetes Management Pager [phone] minutes of this 35 minute visit was spent with the patient in counseling on diabetes and treatment plan, reviewing all glucose and insulin data as well as relevant laboratory results with the patient, and coordination of care on the inpatient unit including nursing and primary team. * Stephy Bianchi MD - 05/06/2021 7:53 AM EDT OTOLARYNGOLOGY - HEAD & NECK SURGERY DAILY PROGRESS NOTE Name: Reggie Pena Sr. Age/Sex: 50 y.o. male Attending: Mat Casper MD Hospital Day: 8 7 Days Post-Op Patient ID/Reason for Admission Reggie Pena Sr. is a 50 y.o. male with PMH obesity, T2DM, HTN, Tobacco use (with plans to quit after this admission), with [id number] SCCa of the supraglottic larynx. Patient is now s/p total laryngectomy with bilateral neck dissections and placement of NGT through stoma and into esophagus functioning as TEP. Interval History Doing well. OOB to chair and for walks. Toleratin Provox. Will trial clears today. Vitals Last value 24hr Range Temperature: 36.9 ??C (98.4 ??F) Temp: [36.8 ??C (98.2 ??F)-36.9 ??C (98.4 ??F)] Heart Rate: 85 Heart Rate: [72-99] Blood Pressure: 163/85 BP: (155-182)/(71-104) Respiratory Rate: 20 Resp: [17-20] SpO2: 94 % SpO2: [92 %-97 %] Intake & Output Intake/Output Summary (Last 24 hours) at 05/06/2021 0753 Last data filed at 05/06/2021 0036 Gross per 24 hour Intake 1275 ml Output 3670 ml Net -2395 ml Physical Exam ?? General: NAD, non-ill appearing Face: Symmetric without dysmorphic features Eyes: EOMI, conjunctiva healthy Ears: Auricles symmetric, no lesions Nose: Patent nares, grossly normal appearance Oral Cavity/Pharynx: Mucosa is pink Neck: Soft, laryngectomy stoma healing well, incisions intact, bilateral CHERIE drains with serosanguinous output, staple line intact, hemostatic. Gastric tube sutured in place through stoma to esophagus. Chest: Unlabored breathing, regular rate Neuro: Alert & oriented, moving extremities x 4 Labs Recent Labs 05/04/21 0059 NA 136 K 3.6 CL 98 CO2 32* BUN 15 CREATININE 0.49* GLUCOSE 127 CALCIUM 8.1* MAGNESIUM 0.86 PHOS 3.0 Imaging n/a *Personally reviewed and evaluated ASSESSMENT & PLAN Reggie Roland Jean Ramirez. is a 50 y.o. male s/p laryngectomy and TEP placement, 7 Days Post-Op. Appears to be doing well. Advanced the NGT since it was coming out and put it to 47 cm on 05/05. Changed to Provox. Trial of clear liquids including blue gatorade to assess for leak. Surgical/Head&Neck: Apply aquaphor to incisions Ok to clean laryngectomy trach tube as needed Current Provox 9/55 with trach ties Saline bullets Qhour for secretions PRN Will trial swallowing 05/06 with blue dye to assess for leak Neurologic: Pain controlled with acetaminophen [place], oxycodone PRN Cardiovascular: Home lasix, lisinopril Pulmonary: Oxygenation on HTC, duonebs [place], respiratory status improving Gastrointestinal: Zofran PRN Genitourinary: Guy out, UO adequate Musculoskeletal: OOB Fluids/Electrolytes: Repleting lytes Nutrition: Clear Liquid bolusTF Infectious Disease: Unasyn Hematology: Hemoglobin has been stable. Endocrine: Diabetes, on insulin (adjusted 05/02) 1. Lantus??17??units qd 2. Lispro custom correction scale for BG??1:20??>140 3. Meal-associated Lispro ??1unit: 10??gm carb ratio for each meal 4.??For??Impact peptide 1.5??tube feed - ??140??grams of carbohydrate per 1000 cc With 375 ml per bolus feeds at 9,1300, 1700, 2100 use at the start of the feed as his calculated INsulin to CHO rate is 1:10--will use 5 units lispro at start of each feed Consults: Endocrine, nutrition, PT/OT Lines: JPx2, TEP NG, 8UN85H, PIV Prophylaxis: Lovenox, SCD, ambulation, H2 Disposition: Floor status, Attempt Cardiopulmonary Resuscitation - Inpatient Discharge: Plan for d/c TBD ; Needs TF and VNA; Follow-up ENT Stephy Bianchi MD, PGY1 05/06/21 7:53 AM ENT Team Pager: [phone] * Stephy Bianchi MD - 05/05/2021 2:28 PM EDT OTOLARYNGOLOGY - HEAD & NECK SURGERY DAILY PROGRESS NOTE Name: Reggie Pena SrAyala Age/Sex: 50 y.o. male Attending: Mat Casper MD Hospital Day: 7 6 Days Post-Op Patient ID/Reason for Admission Reggie Pena is a 50 y.o. male with PMH obesity, T2DM, HTN, Tobacco use (with plans to quit after this admission), with [id number] SCCa of the supraglottic larynx. Patient is now s/p total laryngectomy with bilateral neck dissections and placement of NGT through stoma and into esophagus functioning as TEP. Interval History Doing well. OOB to chair and for walks Vitals Last value 24hr Range Temperature: 36.8 ??C (98.3 ??F) Temp: [36.6 ??C (97.9 ??F)-36.9 ??C (98.4 ??F)] Heart Rate: 99 Heart Rate: [71-99] Blood Pressure: (!) 182/98 BP: (150-195)/(58-122) Respiratory Rate: 16 Resp: [15-16] SpO2: 96 % SpO2: [92 %-98 %] Intake & Output Intake/Output Summary (Last 24 hours) at 05/05/2021 1428 Last data filed at 05/05/2021 1000 Gross per 24 hour Intake 370 ml Output 2005 ml Net -1635 ml Physical Exam ?? General: NAD, non-ill appearing Face: Symmetric without dysmorphic features Eyes: EOMI, conjunctiva healthy Ears: Auricles symmetric, no lesions Nose: Patent nares, grossly normal appearance Oral Cavity/Pharynx: Mucosa is pink Neck: Soft, laryngectomy stoma healing well, incisions intact, bilateral CHERIE drains with serosanguinous output, staple line intact, hemostatic. Gastric tube sutured in place through stoma to esophagus. Chest: Unlabored breathing, regular rate Neuro: Alert & oriented, moving extremities x 4 Labs Recent Labs 05/04/21 0059 05/03/21 0100 NA 136 137 K 3.6 3.6 CL 98 100 CO2 32* 31 BUN 15 11 CREATININE 0.49* 0.51* GLUCOSE 127 138 CALCIUM 8.1* 7.8* MAGNESIUM 0.86 0.90 PHOS 3.0 3.1 Imaging n/a *Personally reviewed and evaluated ASSESSMENT & PLAN Reggie Pena Sr. is a 50 y.o. male s/p laryngectomy and TEP placement, 6 Days Post-Op. Appears to be doing well. Advanced the NGT since it was coming out and put it to 47 cm on 05/05. Changed to Provox Surgical/Head&Neck: Apply aquaphor to incisions Ok to clean laryngectomy trach tube as needed Current Provox with trach ties Saline bullets Qhour for secretions PRN Will trial swallowing 05/06 with blue dye to assess for leak Neurologic: Pain controlled with acetaminophen [place], oxycodone PRN Cardiovascular: Home lasix, lisinopril Pulmonary: Oxygenation on RA, duonebs [place] Gastrointestinal: Zofran PRN Genitourinary: Guy out, UO adequate Musculoskeletal: OOB Fluids/Electrolytes: Repleting lytes Nutrition: NPO diet (Give Meds) bolusTF Infectious Disease: Unasyn Hematology: Hemoglobin has been stable. Endocrine: Diabetes, on insulin (adjusted 05/02) 1. Lantus??17??units qd 2. Lispro custom correction scale for BG??1:20??>140 3. Meal-associated Lispro ??1unit: 10??gm carb ratio for each meal 4.??For??Impact peptide 1.5??tube feed - ??140??grams of carbohydrate per 1000 cc With 375 ml per bolus feeds at 9,1300, 1700, 2100 use at the start of the feed as his calculated INsulin to CHO rate is 1:10--will use 5 units lispro at start of each feed Consults: Endocrine, nutrition, PT/OT Lines: JPx2, TEP NG, 8UN85H, PIV Prophylaxis: Lovenox, SCD, ambulation, H2 Disposition: Floor status, Attempt Cardiopulmonary Resuscitation - Inpatient Discharge: Plan for d/c TBD ; Needs TF and VNA; Follow-up ENT Stephy Bianchi MD, PGY1 05/05/21 2:28 PM ENT Team Pager: [phone] * Raghav Mckoy, RD - 05/05/2021 1:22 PM EDT Nutrition Progress Note Reggie Pena Sr. is a 50 y.o. male admitted with PMH obesity, T2DM, HTN, Tobacco use (last??this AM with plans to quit), with [id number] SCCa of the supraglottic larynx.??Patient is now s/p total laryngectomy with bilateral neck dissections and placement of NGT through stoma and into esophagus functioning as TEP Reason for intervention: Follow up and Tube-feeding Nutrition Recommendations: Continue Impact Peptide 1.5 375mL 4x/day plus 4 scoop(s) of protein powder daily. Monitor hydration status on above tube feeds, due to concentrated formula. Patient may need additional free water flushes depending on other fluid provisions. Maintain BG control- Endocrinology following Monitor weights. All Active TF Orders: Impact Peptide 1.5 375mL 4x/day plus 4 scoop(s) of protein powder daily. At goal, this will provide 1500 ml formula, 2350 calories, 165 grams protein, 1155 ml water from formula + 200 ml water from protein powder administration and 100% of RDI's for vitamins and minerals. Enteral access: DHT Oxygen Therapy/airway: O2 Device: Heated trach collar Lab Results Component Value Date NA 136 05/04/2021 K 3.6 05/04/2021 CL 98 05/04/2021 CO2 32 (H) 05/04/2021 BUN 15 05/04/2021 CREATININE 0.49 (L) 05/04/2021 ESTGFR 129 05/04/2021 MAGNESIUM 0.86 05/04/2021 CALCIUM 8.1 (L) 05/04/2021 PHOS 3.0 05/04/2021 HA1C 7.0 (H) 04/30/2021 Lab Results Component Value Date POCGLU 210 (H) 05/05/2021 POCGLU 134 05/05/2021 POCGLU 119 05/05/2021 POCGLU 156 05/04/2021 POCGLU 212 (H) 05/04/2021 POCGLU 175 05/04/2021 Skin Status: Shift Pressure Injury Prevention Occiput: No Injury Thoracic Spine: No Injury Sacral: No Injury Ischial - left: No Injury Ischial - right: No Injury Heel - left: No Injury Heel - right: No Injury Elbow - left: No Injury Elbow - right: No Injury Device Sites: O2 sat monitor, BP Cuff, ECG Leads, IV sites, other (see comments) Other Sites: trach Relevant medications: Colace, Pepcid, Humalog, Senokot, miralax, lasix Last Bowel Movement: 05/03/21 I/O from last 2 shifts: Intake/Output Summary (Last 24 hours) at 05/05/2021 1322 Last data filed at 05/05/2021 1000 Gross per 24 hour Intake 370 ml Output 2005 ml Net -1635 ml Admit Weight: 163.29 kg Estimated body mass index is 48.82 kg/m?? as calculated from the following: Height as of this encounter: 182.9 cm (6'). Weight as of this encounter: 163.3 kg (360 lb). [place] Body Weight: 80.9kg (178lbs) Usual Body Weight: See below Wt Readings from Last 10 Encounters: 04/30/21 (!) 163.3 kg (360 lb) 04/24/21 (!) 158.7 kg (349 lb 14.4 oz) 04/14/21 (!) 160.5 kg (353 lb 14.4 oz) 04/07/21 (!) 160.6 kg (354 lb) 04/07/21 (!) 160.6 kg (354 lb) 03/28/21 (!) 145.2 kg (320 lb) 03/20/21 (!) 158.8 kg (350 lb) 02/27/21 (!) 158.8 kg (350 lb) Assessment: Nutrition intake and intake history/Interview: 05/01: Peptamen 1.5 running at goal of 55mL/hr this morning. Switch to Impact Peptide 1.5 for increased protein. Continuous and bolus recommendations above. Will continue to monitor for tolerance and adjust as indicated. Estimated needs: Calories: 2278-4658 kcal/kg IBW (25-30 kcal/kg) Protein: 162 grams (2 g/kg IBW) The past 4 days patient has averaged 1312 mL from enteral provisions vs goal of 1500 mL (87% of goal). The past 4 days patient has averaged 3.5 scoops of protein powder daily vs goal of 4 scoops/day (87% of goal). Tolerance or barriers to meeting needs: Tolerating at goal Nutrition Focused Physical Exam (NFPE): Not performed Protein-calorie Malnutrition: Not identified (KRISTINE Benjamin J Parenteral Enteral Nutr. 2012 June; 36(3): 273-83) Nutrition to continue to follow up while inpatient Thank you, RAGHAV MCKOY RD Pager [phone] * Emilia Kumari, TEXTILE SLITTING MACHINE OPERATOR - 05/04/2021 11:57 PM EDT RT Tracheostomy Note Oxygen Delivery: Interface: Heated trach collar Flow: 30 L/min FiO2: 25 % VITAL SIGNS: HR: 80 RR: 16 SpO2: 95 % Barrier Used: drawtex Breath Sounds: clear Trach??Airway: Type:??Shiley?Size:??Adult Trach: 8.0?Style:??UN?? Trach Airway 04/30/21 (Active) Tracheal Airway Size Verification 8 mm 05/04/211944 Appearance clean 05/04/211944 Tube Securement foam trach ties 05/04/211944 Cuff Pressure (cm H2O/mLH2O) 0 05/01/21 1500 Trach Cap Status uncapped/unplugged 05/04/211944 Tube Care/Reposition dressing changed;inner cannula changed;site care done 05/04/211944 Manual Resuscitator at Bedside Yes 05/04/211944 Spare Trach At Bedside Yes 05/04/211944 Trach To Go kit at Bedside Yes 05/04/211944 Emergency Air[facility] Sign at [facility]? Yes 05/04/211944 Trach Care Performed: inner cannula changed, site care done, dressing changed ?? Secretions: Small??thick yellow/white ?? Assessment: Pt received??as noted??above??with??trach secured in place with foam trach ties.Tolerated well overnight without event. ?? Plan: Continue current regimen. EMILIA KUMARI RRT * Samreen Moreno MD - 05/04/2021 3:25 PM EDT OTOLARYNGOLOGY - HEAD & NECK SURGERY DAILY PROGRESS NOTE Name: Reggie Pena SrAyala Age/Sex: 50 y.o. male Attending: Mat Casper MD Hospital Day: 6 5 Days Post-Op Patient ID/Reason for Admission Reggie Pena is a 50 y.o. male with PMH obesity, T2DM, HTN, Tobacco use (with plans to quit after this admission), with [id number] SCCa of the supraglottic larynx. Patient is now s/p total laryngectomy with bilateral neck dissections and placement of NGT through stoma and into esophagus functioning as TEP. Interval History Doing well. Walked twice yesterday. Vitals Last value 24hr Range Temperature: 36.2 ??C (97.2 ??F) Temp: [35.7 ??C (96.3 ??F)-37.1 ??C (98.8 ??F)] Heart Rate: 75 Heart Rate: [67-84] Blood Pressure: 151/88 BP: (140-178)/(85-98) Respiratory Rate: 15 Resp: [15-18] SpO2: 96 % SpO2: [92 %-99 %] Intake & Output Intake/Output Summary (Last 24 hours) at 05/04/2021 1525 Last data filed at 05/04/2021 1200 Gross per 24 hour Intake -- Output 2475 ml Net -2475 ml Physical Exam ?? General: NAD, non-ill appearing Face: Symmetric without dysmorphic features Eyes: EOMI, conjunctiva healthy Ears: Auricles symmetric, no lesions Nose: Patent nares, grossly normal appearance Oral Cavity/Pharynx: Mucosa is pink Neck: Soft, laryngectomy stoma with scant bloody secretions, incisions intact, bilateral CHERIE drains with serosanguinous output, staple line intact, less bleeding from neck incision. Gastric tube sutured in place through stoma to esophagus Chest: Unlabored breathing, regular rate Neuro: Alert & oriented, moving extremities x 4 Labs Recent Labs 05/04/21 0059 05/03/21 0100 05/02/21 0749 WBC -- -- 9.0 HGB -- -- 11.6* HCT -- -- 35.0* PLATELET -- -- 175 NA 136 137 140 K 3.6 3.6 3.9 CL 98 100 100 CO2 32* 31 28 BUN 15 11 12 CREATININE 0.49* 0.51* 0.49* GLUCOSE 127 138 175 CALCIUM 8.1* 7.8* 8.0* MAGNESIUM 0.86 0.90 0.84 PHOS 3.0 3.1 2.3* Imaging n/a *Personally reviewed and evaluated ASSESSMENT & PLAN Reggie Pena Sr. is a 50 y.o. male s/p laryngectomy and TEP placement, 5 Days Post-Op. Appears to be doing well. Advanced the NGT since it was coming out and put it to 47 cm on 05/03. Stopped labs since stable. Surgical/Head&Neck: Apply aquaphor to incisions Ok to clean laryngectomy trach tube as needed Current 8UN75H will change to Provox later. Saline bullets Qhour for secretions PRN Neurologic: Pain controlled with acetaminophen [place], oxycodone PRN Cardiovascular: Home lasix, lisinopril Pulmonary: Oxygenation on RA, duonebs [place] Gastrointestinal: Zofran PRN Genitourinary: Guy out, UO adequate Musculoskeletal: OOB Fluids/Electrolytes: Repleting lytes Nutrition: NPO diet (Give Meds) bolusTF Infectious Disease: Unasyn Hematology: Hemoglobin has been stable. Endocrine: Diabetes, on insulin (adjusted 05/02) 1. Lantus??17??units qd 2. Lispro custom correction scale for BG??1:20??>140 3. Meal-associated Lispro ??1unit: 10??gm carb ratio for each meal 4.??For??Impact peptide 1.5??tube feed - ??140??grams of carbohydrate per 1000 cc With 375 ml per bolus feeds at 9,1300, 1700, 2100 use at the start of the feed as his calculated INsulin to CHO rate is 1:10--will use 5 units lispro at start of each feed Consults: Endocrine, nutrition, PT/OT Lines: JPx2, TEP NG, 8UN85H, PIV Prophylaxis: Lovenox, SCD, ambulation, H2 Disposition: Floor status, Attempt Cardiopulmonary Resuscitation - Inpatient Discharge: Plan for d/c TBD ; Needs TF and VNA; Follow-up ENT Samreen Moreno MD, PGY5 05/04/21 3:25 PM ENT Team Pager: [phone] Associated attestation - Todd Huntley MD - 05/04/2021 5:01 PM EDT Otolaryngology Attending Physician Addendum Patient discussed at length and in detail with Dr. Divakar. I have reviewed, and agree with, the clinical history, physical examination findings, impression, and plan, as detailed in resident physician's note. Todd Huntley MD, FACS, FAAP Pediatric Otolaryngology [facility] * Emilia Kumari, TEXTILE SLITTING MACHINE OPERATOR - 05/04/2021 2:30 AM EDT RT Tracheostomy Note Oxygen Delivery: Interface: Heated trach collar Flow: 35 L/min FiO2: 35 % VITAL SIGNS: HR: 69 RR: 16 SpO2: 98 % Barrier Used: drawtex Breath Sounds: clear post suction Trach??Airway: Type:??Shiley? Size:??Adult Trach: 8.0?Style:??UN?? Trach Airway 04/30/21 (Active) Tracheal Airway Size Verification 8 mm 05/04/21 0140 Appearance clean 05/04/21 0140 Tube Securement foam trach ties 05/04/21 0140 Cuff Pressure (cm H2O/mLH2O) 0 05/01/21 1500 Trach Cap Status uncapped/unplugged 05/04/21 0140 Tube Care/Reposition inner cannula changed;site care done;dressing changed 05/03/21 1930 Manual Resuscitator at Bedside Yes 05/04/21 0140 Spare Trach At Bedside Yes 05/04/21 0140 Trach To Go kit at Bedside Yes 05/04/21 0140 Emergency Airway Sign at [facility]? Yes 05/04/21 0140 Trach Care Performed: inner cannula changed, site care done, dressing changed Secretions: Small??thick yellow/white Assessment: Pt received as noted above with trach secured in place with foam trach ties.Tolerated well overnight without event. Plan: Continue current regimen. EMILIA KUMARI RRT * Samreen Moreno MD - 05/03/2021 10:55 AM EDT OTOLARYNGOLOGY - HEAD & NECK SURGERY DAILY PROGRESS NOTE Name: Reggie Luan Pena Sr. Age/Sex: 50 y.o. male Attending: Mat Casper MD Hospital Day: 5 4 Days Post-Op Patient ID/Reason for Admission Reggie Pena Sr. is a 50 y.o. male with PMH obesity, T2DM, HTN, Tobacco use (with plans to quit after this admission), with [id number] SCCa of the supraglottic larynx. Patient is now s/p total laryngectomy with bilateral neck dissections and placement of NGT through stoma and into esophagus functioning as TEP. Interval History Doing well. Less bleeding from neck incision. Vitals Last value 24hr Range Temperature: 36.9 ??C (98.4 ??F) Temp: [36.7 ??C (98 ??F)-37.1 ??C (98.7 ??F)] Heart Rate: 79 Heart Rate: [70-98] Blood Pressure: (!) 148/92 BP: (116-157)/(64-92) Respiratory Rate: 16 Resp: [16-20] SpO2: 99 % SpO2: [95 %-100 %] Intake & Output Intake/Output Summary (Last 24 hours) at 05/03/2021 1055 Last data filed at 05/03/2021 0900 Gross per 24 hour Intake 580 ml Output 2190 ml Net -1610 ml Physical Exam ?? General: NAD, non-ill appearing Face: Symmetric without dysmorphic features Eyes: EOMI, conjunctiva healthy Ears: Auricles symmetric, no lesions Nose: Patent nares, grossly normal appearance Oral Cavity/Pharynx: Mucosa is pink Neck: Soft, laryngectomy stoma with scant bloody secretions, incisions intact, bilateral CHERIE drains with serosanguinous output, staple line intact, less bleeding from neck incision. Gastric tube sutured in place through stoma to esophagus Chest: Unlabored breathing, regular rate Neuro: Alert & oriented, moving extremities x 4 Labs Recent Labs 05/03/21 0100 05/02/21 0749 05/01/21 0059 WBC -- 9.0 9.0 HGB -- 11.6* 11.6* HCT -- 35.0* 35.4* PLATELET -- 175 154 NA 137 140 138 K 3.6 3.9 3.7 CL 100 100 104 CO2 31 28 27 BUN 11 12 12 CREATININE 0.51* 0.49* 0.61* GLUCOSE 138 175 183 CALCIUM 7.8* 8.0* 7.6* MAGNESIUM 0.90 0.84 0.82 PHOS 3.1 2.3* 2.4* Imaging n/a *Personally reviewed and evaluated ASSESSMENT & PLAN Reggie Pena Sr. is a 50 y.o. male s/p laryngectomy and TEP placement, 4 Days Post-Op. Appears to be doing well. Advanced the NGT since it was coming out and put it to 47 cm. Follow-up on calcium. Surgical/Head&Neck: Apply aquaphor to incisions Ok to clean laryngectomy trach tube as needed Current 8UN75H will change to Provox later. Saline bullets Qhour for secretions PRN Neurologic: Pain controlled with acetaminophen [place], oxycodone PRN Cardiovascular: Home lasix, lisinopril Pulmonary: Oxygenation on RA, duonebs [place] Gastrointestinal: Zofran PRN Genitourinary: Guy out, UO adequate Musculoskeletal: OOB Fluids/Electrolytes: Repleting lytes Nutrition: NPO diet (Give Meds) bolusTF Infectious Disease: Unasyn Hematology: Hemoglobin has been stable. Endocrine: Diabetes, on insulin (adjusted 05/02) 1. Lantus??17??units qd 2. Lispro custom correction scale for BG??1:20??>140 3. Meal-associated Lispro ??1unit: 10??gm carb ratio for each meal 4.??For??Impact peptide 1.5??tube feed - ??140??grams of carbohydrate per 1000 cc With 375 ml per bolus feeds at 9,1300, 1700, 2100 use at the start of the feed as his calculated INsulin to CHO rate is 1:10--will use 5 units lispro at start of each feed Consults: Endocrine, nutrition, PT/OT Lines: JPx2, TEP NG, 8UN85H, PIV Prophylaxis: Lovenox, SCD, ambulation, H2 Disposition: Floor status, Attempt Cardiopulmonary Resuscitation - Inpatient Discharge: Plan for d/c TBD ; Needs TF and VNA; Follow-up ENT Samreen Moreno MD, PGY5 05/03/21 10:55 AM ENT Team Pager: [phone] Associated attestation - Todd Huntley MD - 05/04/2021 4:59 PM EDT Otolaryngology Attending Physician Addendum Patient discussed at length and in detail with Dr. Moreno. I have reviewed, and agree with, the clinical history, physical examination findings, impression, and plan, as detailed in resident physician's note. Todd Huntley MD, FACS, FAAP Pediatric Otolaryngology [facility] * Samantha Roper RN - 05/03/2021 9:10 AM EDT Shift Summary 0900 team paged regarding NGT depth 0930 ENT at bedside, advanced NGT now 47cm 1130 patient ambulated outside room in galvan, tolerated well. Pain seems much better controled Samantha Roper RN * Emilia Kumari, MICHELLE - 05/02/2021 9:18 PM EDT RT Tracheostomy Note Oxygen Delivery: Interface: Heated trach collar Flow: 35 L/min FiO2: 21 % VITAL SIGNS: HR: 87 RR: 16 SpO2: 97 % Breath Sounds: clear post suction Trach Airway:Type:??Shiley?Size:??Adult Trach: 8.0?Style:??UN Trach Airway 04/30/21 (Active) Tracheal Airway Size Verification 8 mm 05/02/211934 Appearance clean 05/02/211934 Tube Securement foam trach ties 05/02/211934 Cuff Pressure (cm H2O/mLH2O) 0 05/01/21 1500 Trach Cap Status uncapped/unplugged 05/02/211934 Tube Care/Reposition inner cannula changed;site care done 05/02/211934 Manual Resuscitator at Bedside Yes 05/02/211934 Spare Trach At Bedside Yes 05/02/211934 Trach To Go kit at Bedside Yes 05/02/211934 Emergency Airway Sign at [facility]? Yes 05/02/211934 Trach Care Performed: inner cannula changed, site care done Secretions: Small??Thick ([place])??blood streaked white. Assessment: Pt received as noted above with trach securely in place with foam trach ties.Pt had good bilateral chest rise with clear breath sounds.Tolerated well overnight without event. ?? Plan: Continue current regimen. EMILIA KUMARI, TEXTILE SLITTING MACHINE OPERATOR * Deborah Sprague RN - 05/02/2021 12:18 PM EDT The Patient has been provided a list of Home Health Agencies/DME vendors which serve their preferred geographic area. A letter describing our affiliations was reviewed with them and they were educated about their right to choose where referrals are placed. Provided patient with [facility] Star Quality Rating for Home care hand out. Patient requests referral to: [facility]. PHONE: [phone] FAX: [phone] *For RN, APPAREL MANUFACTURE INSTRUCTOR, WELDING MACHINE FEEDER Also [place], [place] or *For tube feed and supplies. Also [facility] (Resp Supplies) Central Intake: [place]: [place]: -They cover all [place] *For trach supplies, suction, humdification (except rena tubes) Also [facility] [address] [place] [address] *For laryngectomy tubes Expected date of discharge: 05/07/21. Referral routed to the [employer] for matching with agency/vendor and to provide any required information. Deborah Sprague MSN-Ed, RN ACM intrusion analyst Office of Care Management Pager #[phone] * Stephy Bianchi MD - 05/02/2021 12:02 PM EDT OTOLARYNGOLOGY - HEAD & NECK SURGERY DAILY PROGRESS NOTE Name: Reggie Pena Sr. Age/Sex: 50 y.o. male Attending: Mat Casper MD Hospital Day: 4 3 Days Post-Op Patient ID/Reason for Admission Reggie Pena Sr. is a 50 y.o. male with PMH obesity, T2DM, HTN, Tobacco use (with plans to quit after this admission), with [id number] SCCa of the supraglottic larynx. Patient is now s/p total laryngectomy with bilateral neck dissections and placement of NGT through stoma and into esophagus functioning as TEP. Interval History Patient with oxygen requirement to FiO2 30%, otherwise comfortable. Vitals Last value 24hr Range Temperature: 36.9 ??C (98.4 ??F) Temp: [36.2 ??C (97.2 ??F)-36.9 ??C (98.4 ??F)] Heart Rate: 80 Heart Rate: [74-87] Blood Pressure: 147/89 BP: (144-178)/(88-103) Respiratory Rate: 18 Resp: [14-18] SpO2: 96 % SpO2: [93 %-97 %] Intake & Output Intake/Output Summary (Last 24 hours) at 05/02/2021 1202 Last data filed at 05/02/2021 1100 Gross per 24 hour Intake 741.25 ml Output 1858 ml Net -1116.75 ml Physical Exam ?? General: NAD, non-ill appearing Face: Symmetric without dysmorphic features Eyes: EOMI, conjunctiva healthy Ears: Auricles symmetric, no lesions Nose: Patent nares, grossly normal appearance Oral Cavity/Pharynx: Mucosa is pink, oropharynx symmetric Neck: Soft, laryngectomy stoma with scant bloody secretions, incisions intact, bilateral CHERIE drains with sanguinous output, staple line intact with some sanguinous output R>L neck, no hematoma, Gastric tube sutured in place through stoma to esophagus Chest: Unlabored breathing, regular rate Neuro: Alert & oriented, moving extremities x 4 Labs Recent Labs 05/02/21 0749 05/01/21 0059 WBC 9.0 9.0 HGB 11.6* 11.6* HCT 35.0* 35.4* PLATELET 175 154 NA 140 138 K 3.9 3.7 CL 100 104 CO2 28 27 BUN 12 12 CREATININE 0.49* 0.61* GLUCOSE 175 183 CALCIUM 8.0* 7.6* MAGNESIUM 0.84 0.82 PHOS 2.3* 2.4* Imaging n/a *Personally reviewed and evaluated ASSESSMENT & PLAN Reggie Roland Jean Ramirez. is a 50 y.o. male s/p laryngectomy and TEP placement, 3 Days Post-Op. Appears to be doing well. Surgical/Head&Neck: Apply aquaphor to incisions Ok to clean laryngectomy trach tube as needed Current 8UN75H will change to Provox today Saline bullets Qhour for secretions PRN Neurologic: Pain controlled with acetaminophen [place], oxycodone PRN Cardiovascular: Home lasix, lisinopril Pulmonary: Oxygenation on RA, duonebs alexandria, Prior oxygen requirement no longer needed, unknown etiology Gastrointestinal: Zofran PRN Genitourinary: Guy out, UO adequate Musculoskeletal: OOB Fluids/Electrolytes: Repleting lytes Nutrition: NPO diet (Give Meds) bolusTF Infectious Disease: WBC 9, Unasyn; Peridex Hematology: Hemoglobin 11.6 Endocrine: Diabetes, on insulin (adjusted 05/02) 1. Lantus??17??units qd 2. Lispro custom correction scale for BG??1:20??>140 3. Meal-associated Lispro ??1unit: 10??gm carb ratio for each meal 4.??For??Impact peptide 1.5??tube feed - ??140??grams of carbohydrate per 1000 cc With 375 ml per bolus feeds at 9,1300, 1700, 2100 use at the start of the feed as his calculated INsulin to CHO rate is 1:10--will use 5 units lispro at start of each feed Consults: Endocrine, nutrition, PT/OT Lines: JPx2, TEP NG, 8UN85H, PIV Prophylaxis: Lovenox, SCD, ambulation, H2 Disposition: Floor status, Attempt Cardiopulmonary Resuscitation - Inpatient Discharge: Plan for d/c TBD ; Needs TF and VNA; Follow-up ENT Stephy Bianchi MD, PGY1 05/02/21 12:02 PM ENT Team Pager: [phone] * Lucia Puentes, JANITORIAL ASSISTANT - 05/02/2021 11:18 AM EDT Images from the original note were not included. . Follow Up Diabetes Consult Patient Interview Spoke with team and Reggie's tube feeds are now BOLUSED at 0900,1300,1700, 2100 with the same feed type impact peptide 1.5 He is in good spirits He tolerated the first feed well We will change the insulin ordrrs for the feeds and he has no plans at this time for eating PO Objective Temp: [36.2 ??C (97.2 ??F)-36.8 ??C (98.2 ??F)] Heart Rate: [74-87] Resp: [14-18] BP: (144-178)/(88-103) SpO2: [93 %-97 %] Heart Rate from SpO2: [74 bpm-84 bpm] Current Regimen 1. Lantus??17??units qd 2. Lispro custom correction scale for BG??1:20??>140 3. Meal-associated Lispro ??1unit: 10??gm carb ratio for each meal 4.??For??Impact peptide 1.5 tube feed - ??140??grams of carbohydrate per 1000 cc HOLD if tube feed not running HOLD if BG less than??70 Based on 1:16??I:C ratio ??TO COVER THE NEXT 4 HOURS OF TUBE FEEDS 10 -19ml per hour give 0 units every 4 hours 20-49 ml per hour give??1??units every 4 hours 50-63??ml per hour give 2??units every 4 hours If greater than??63 ml per hour??or change in tube feed call for new orders. Recent Glucose Levels Recent Labs 05/02/21 0741 05/02/21 0348 05/01/21 2333 05/01/21 1953 05/01/21 1604 05/01/21 1522 05/01/21 1210 05/01/21 0738 05/01/21 0322 04/30/21 2355 04/30/21 1945 04/30/21 1602 POCGLU 163 151 206* 183 141 146 158 179 230* 174 156 154 ASSESSMENT Patient is a??50 y.o.??years old male??with PMH significant for DM ??who was admitted on 04/29/2021??for status post laryngectomy. ??Diabetes suboptimally controlled and currently complicated by elevated glucose levels. ??Currently with variability of blood glucose levels while hospitalized requiring adjustment of insulin regimen and DM medications. PLAN 1. Lantus??17??units qd 2. Lispro custom correction scale for BG??1:20??>140 3. Meal-associated Lispro ??1unit: 10??gm carb ratio for each meal 4.??For??Impact peptide 1.5 tube feed - ??140??grams of carbohydrate per 1000 cc With 375 ml per bolus feeds at 9,1300, 1700, 2100 use at the start of the feed as his calculated INsulin to CHO rate is 1:10--will use 5 units lispro at start of each feed 33 minutes of this 35 minute visit was spent with the patient in counseling on diabetes and treatment plan, reviewing all glucose and insulin data as well as relevant laboratory results with the patient, and coordination of care on the inpatient unit including nursing and primary team. * Emilia Kumari, TEXTILE SLITTING MACHINE OPERATOR - 05/02/2021 3:52 AM EDT RT Tracheostomy Note Oxygen Delivery: Interface: Heated trach collar Flow: 35 L/min FiO2: 30 % VITAL SIGNS: HR: 80 RR: 16 SpO2: 96 % Trach Airway:Type: Shiley Size: Adult Trach: 8.0 Style: UN Trach Airway 04/30/21 (Active) Tracheal Airway Size Verification 8 mm 05/01/211949 Appearance clean 05/01/211949 Tube Securement foam trach ties 05/01/211949 Cuff Pressure (cm H2O/mLH2O) 0 05/01/21 1500 Trach Cap Status uncapped/unplugged 05/01/211949 Tube Care/Reposition inner cannula changed;site care done 05/01/211949 Manual Resuscitator at Bedside Yes 05/01/211949 Spare Trach At Bedside Yes 05/01/211949 Trach ToGo kit at Bedside Yes 05/01/211949 Emergency Airway Sign at [facility]? Yes 05/01/211949 Secretions:Small Thick ([place] of the road) blood streaked white. Assessment: Pt received with the above trach securely in place with foam trach ties.Pt had good bilateral chest rise with clear breath sounds.Tolerated well overnight without event. Plan: : Continue current regimen. EMILIA KUMARI, TEXTILE SLITTING MACHINE OPERATOR * HeatherDuenas, Katherine, PT - 05/01/2021 3:28 PM EDT Physical Therapy Note Treatment Number PT: 2 Patient profile: Reggie Roland Jean Sr.??is a 50 y.o.??male??admitted with [facility] obesity, T2DM, HTN, Tobacco use, with [id number] SCCa of the supraglottic larynx.??Patient is now s/p total laryngectomy with bilateral neck dissections and placement of NGT through stoma and into esophagus functioning as TEP, 04/29/21. ?? Patient with the following active problems: Past Medical History Past Medical History: Diagnosis Date ??? Diabetes mellitus ? Obesity ? Panniculitis ? Past Surgical History Past Surgical History: Procedure Laterality Date ??? PRO ESOPHAGOSCOPY, DIAGNOSTIC N/A 03/28/2021 ?? ESOPHAGOSCOPY, RIGID OR FLEXIBLE, DIAGNOSTIC W/WO SPECIMEN COLLECTION (WRVU 1.52) performed by Mat Casper MD at [facility] MA[facility] OR ??? PRO LARYNGOSCOPY, DIRCT, OP SCOPE, BIOPSY N/A 03/28/2021 ?? LARYNGOSCOPY, MICROSCOPE, WITH BIOPSY (WRVU 3.55) performed by Mat Casper MD at [facility] MA[facility] OR ??? PRO LARYNGOSCOPY, DIRCT, OP SCOPE, BIOPSY N/A 04/29/2021 ?? LARYNGOSCOPY, MICROSCOPE, WITH BIOPSY (WRVU 3.55) performed by Mat Casper MD at [facility] OR ? ? PRO PART REMOVAL TONGUE, <1/2 Bilateral 04/29/2021 ?? GLOSSECTOMY, LESS THAN ONE-HALF TONGUE (WRVU 11.14) [facility] ??? PRO RAD RESEC TONSIL/PILLARS Left 04/29/2021 ?? RADICAL RESECTION OF TONSIL, PILLARS, RETROMOLAR TRIGONE, NO CLOSURE (WRVU 12.23) performed by Mat Casper MD at [facility] OR ? ? PRO REMV LARYNX & PHARYNX Bilateral 04/29/2021 ?? @PHARYNGOLARYNGECTOMY, NECK DISSECTION, NO RECON (WRVU 42.51) performed by Mat Casper MD at [facility] OR ??? PRO UPPER GI ENDOSCOPY, DIAGNOSTIC N/A 04/29/2021 ?? ENDOSCOPY, UPPER GI, DIAGNOSTIC, WITH OR WITHOUT SPECIMENS performed by Raghav Webb MD [facility] OR ?? Active Non-Hospital Problems ?? Diagnosis ??? Squamous cell carcinoma of supraglottis ??? Diabetes mellitus type 2, uncontrolled (DM) ??? Morbid obesity ??? Hypertension (HTN) ??? Tobacco abuse ??? Panniculitis ? Social History: Home set-up: Lives alone. One level home. 3 adult children, unclear how far away. Has a nearby friend Gabriel who can assist as needed. Bathroom Set-up: Walk in shower. Stairs: 3 MARLON without a railing Baseline Mobility: Walks without devices. Independent. 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 Equipment at home: none Fall history: none ?? Precautions/Special Considerations: Strict NPO; tracheostomy; NG in TEP; PIV; 2 CHERIE drains ant neck;Trach mask 30% Activity Orders: AAT ?? Mobility and Positioning Recommendations: ?? Pt. to utilize hand held assist and 1-2 assist for ambulation and transfers with nursing. ?? Please encourage up to chair for meal times as able. ?? Pt encouraged to ambulate with staff, getting into the bathroom for toileting and walking out inthe galvan >/= 3 times daily as able. ?? Subjective: Pt not wanting to walk outside the room. Agreed to get up to the chair with encouragement. Objective: Patient seen for physical therapy and demonstrated the following: Pain: C/o increased neck pain with coughing. Vital Signs: At Rest With Activity SpO2 (30%, 35L) 95% 95-96% BP (MAP) -mmHg -mmHg HR 70-80 bpm 80s bpm Cognition: wnls Bed Mobility: Supine to Sit: minimum assist of 2, HOB elevated. Sit to Supine: N/A Transfers: Sit to Stand: contact guard assist using rolling walker Stand to Sit: contact guard assist using rolling walker Bed to Chair: contact guard assist of 2 using rolling walker and line management. Gait: Distance: ~3' and pivot to the chair. Marched in place 10x Device used: no assistive device Level of assist: contact guard assist of 1-2, line management. Gait mechanics: wide DAWN, short step lengths. Stairs: NE Balance: sat upright off back of chair for ~ 10-15 minutes while back was washed, pt washed his face, while hair shampoo cap was used and below ex. Sitting Static: good Sitting Dynamic: good Standing Static: fair to fair+ Standing Dynamic / Gait: Fair Education: Pt Encouraged to get OOB with nursing and active movements of LEs. . Discussed need to progress ambulation on next visit. Therex: LAQS x 10, sit<>stand x 5, See marching above. Pt left in bedside recliner chair with father present and thankful, throughout PT visit. OT presentto assist with ADLs and transfers. Refer to their note for details. Assessment: Reggie Pena Sr. was seen today for physical therapy treatment session for continuation of POC. Pt has difficulty sitting on EOB but needs only light assist and line management to stand and walk short distances. Pt needs encouragement to mobilize. Can check with RT tomorrow if a venti mask can be used over tracheostomy tomorrow and be off high flow for a walk. Pt will benefit from ongoing therapeutic interventions to achieve therapy goals. Discharge Recommendations: Based on the current findings, Anticipated Discharge Disposition (PT): home with home health, home with supervision (likely no ongoing DC needs at home.) when medically ready for hospital discharge. Consult Recommendations: No other consults recommended at this time. Equipment needs: Anticipated Equipment Needs at Discharge (PT): None Physical Therapy Goals: To be achieved by 05/09/21: ??Ongoing as of 05/01/21. ?? 1. Pt. to perform bed mobility with modified independence. 2. Pt. to perform sit<>stand transfers with modified independence using no assistive device. 3. Pt. to ambulate >150 feet with modified independence using a no assistive device. 4. Pt. to ambulate up/down 3 step/stairs using one hand hold with supervision. 5. Family or caregiver to demonstrate understanding of therapeutic interventions to support the care of the patient. 6. Pt will tolerate progression towards upright with stable vital signs. ?? Plan: Therapy Frequency (PT): 2-4 times/wk for therapy interventions as outlined in initial evaluation. Patient agrees with plan as stated. Time IN / OUT: 1918-0012 Total Minutes, Physical Therapy: 25 (TEF REEMA) KATHERINE BREWSTER, PT Pager: [phone] Physical Therapy Inpatient Rehabilitation Department * Misty Tee, OT - 05/01/2021 3:05 PM EDT Occupational Therapy Treatment Note Treatment Number OT: 2 Patient profile: Per MD: Reggie Pena Sr.??is a 50 y.o.??male??with PMH obesity, T2DM, HTN, Tobacco use (last??this AM with plans to quit), with [id number] SCCa of the supraglottic larynx.??Patient is now s/p total laryngectomy with bilateral neck dissections and placement of NGT through stoma and into esophagus functioning as TEP.? Past Medical History Past Medical History: Diagnosis Date ??? Diabetes mellitus ? Obesity ? Panniculitis ? Past Surgical History Past Surgical History: Procedure Laterality Date ??? PRO ESOPHAGOSCOPY, DIAGNOSTIC N/A 03/28/2021 ?? ESOPHAGOSCOPY, RIGID OR FLEXIBLE, DIAGNOSTIC W/WO SPECIMEN COLLECTION (WRVU 1.52) performed by Mat Casper MD at [facility] OR ??? PRO LARYNGOSCOPY, DIRCT, OP SCOPE, BIOPSY N/A 03/28/2021 ?? LARYNGOSCOPY, MICROSCOPE, WITH BIOPSY (WRVU 3.55) performed by Mat Casper MD at [facility] OR ??? PRO LARYNGOSCOPY, DIRCT, OP SCOPE, BIOPSY N/A 04/29/2021 ?? LARYNGOSCOPY, MICROSCOPE, WITH BIOPSY (WRVU 3.55) performed by Mat Casper MD at [facility] OR ? ? PRO PART REMOVAL TONGUE, <1/2 Bilateral 04/29/2021 ?? GLOSSECTOMY, LESS THAN ONE-HALF TONGUE (WRVU 11.14) [facility] ??? PRO RAD RESEC TONSIL/PILLARS Left 04/29/2021 ?? RADICAL RESECTION OF TONSIL, PILLARS, RETROMOLAR TRIGONE, NO CLOSURE (WRVU 12.23) performed by Mat Casper MD at [facility] OR ? ? PRO REMV LARYNX & PHARYNX Bilateral 04/29/2021 ?? @PHARYNGOLARYNGECTOMY, NECK DISSECTION, NO RECON (WRVU 42.51) performed by Mat Casper MD at [facility] OR ??? PRO UPPER GI ENDOSCOPY, DIAGNOSTIC N/A 04/29/2021 ?? ENDOSCOPY, UPPER GI, DIAGNOSTIC, WITH OR WITHOUT SPECIMENS performed by Raghav Webb MD [facility] OR ? Social History: Patient lives alone in a one level home in [place]. Home Setup: Pt reports 3 MARLON. Pt has a walk in shower. Pt reports 3 recliner chairs, but typically sleeps in a regular flat bed. DME: None Baseline ADL/Mobility: Pt typically independent with all ADL and IADL routines. 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 Pt has 3 children that are supportive, but donot live close. Pt friend Gabriel works, but can assist Pt s/p discharge. ?? Precautions/Special Considerations: NPO, full code, 2 CHERIE drains, activity as tolerated, trach, HFNCvia trach mask, NG in TEP Interval History: non-significant S: Pt mouthed I feel like sh O: Patient seen for skilled OT treatment, and demonstrated the following: ?? Self-care: ?? Pt presented awake in bed with father visiting; see in conjunction with PT to encourage further mobilization and ADL retraining ?? Grooming: ?? Pt supervision for washing face at standing level with LUE ?? Provided with shampoo cap and Pt able to comb hair with incidental support around trach collar. Pt back washed dependently. ?? Functional Mobility: ?? Supine to sit: min Ax2 towards the L via STEAM TANK OPERATOR ?? Sit to stand: CGAx2 ?? Ambulation: CGA x2 ~4 ft to recliner chair via stand step transfer ?? Stand to sit: CGA to recliner chair ?? Pt left reclined in chair; he was resistant to ambulating further secondary to reports of feeling like sh) ?? Cognition: ?? Behavior / Mood: alert and cooperative ?? Alert and oriented to: person, place and situation ?? Follows commands: 2 step and 100% of the time ?? Attention: WFL ?? Safety awareness: WFL ?? Vitals: HFNC 30% on 35L/min; Pt above 94% entire session ?? Strength/ROM: WFL; LUE limited slightly due to placement of NG securement Pain: Pt mouthed neck when coughing Education: Pt/family/caregiver education ongoing regarding: Role of occupational therapy/rehabilitation, Transfers, ADL, Breathing exercises, Positioning, Safety, Balance, Recommendations and Discharge planning. Staff Communication: Patient status, treatment, and mobility recommendations discussed with nursing/other staff. ASSESSMENT: Pt seen for OT services. Pt presented awake in bed and was agreeable to getting OOB, but resistant to mobilizing further than the chair. Pt agreeable to working on standing tolerance to wash face. He was also agreeable to grooming tasks for a shampoo cap. He continues to function below baseline, but anticipate he will make good progress and will be safe to return home with friend/family assistance and services. Pt will benefit from ongoing therapeutic interventions to achieve pt's and therapy goals Anticipated Discharge Disposition (OT): home with home health Equipment Recommendations: TBD Other Recommendations: ?? Utilize upright chair position using bed features or transfer to recliner chair as appropriate with CGA, ambulate as tolerated ?? Encourage participation in ADL's by providing set up A on tray table and physical assist only asneeded Goals: To be achieved by 05/09/21. 1. Pt will be conditional independent for LB dressing routines with AE as needed at seated/standinglevels 2. Pt will be conditional independent for toileting routine at ambulatory level 3. Pt will be able to make wants and needs known using universal approach on all occasions 4. Pt will be able to stand for 8 minutes to perform sink level grooming task with LRAD?? Therapy Frequency (OT): 1-3 times/wk Total Minutes, Occupational Therapy: 15 (1 SC) Pager: [phone] Misty Tee OT Occupational Therapy Rehabilitation Department * Stephy Bianchi MD - 05/01/2021 12:55 PM EDT OTOLARYNGOLOGY - HEAD & NECK SURGERY DAILY PROGRESS NOTE Name: Reggie Pena Sr. Age/Sex: 50 y.o. male Attending: Mat Casper MD Hospital Day: 3 2 Days Post-Op Patient ID/Reason for Admission Reggie Pena Sr. is a 50 y.o. male with PMH obesity, T2DM, HTN, Tobacco use (with plans to quit after this admission), with [id number] SCCa of the supraglottic larynx. Patient is now s/p total laryngectomy with bilateral neck dissections and placement of NGT through stoma and into esophagus functioning as TEP. Interval History Patient with oxygen requirement to FiO2 30%, otherwise comfortable. Vitals Last value 24hr Range Temperature: 36.8 ??C (98.2 ??F) Temp: [36.4 ??C (97.5 ??F)-37 ??C (98.6 ??F)] Heart Rate: 80 Heart Rate: [71-94] Blood Pressure: (!) 144/96 BP: (144-166)/(90-99) Respiratory Rate: 14 Resp: [14-24] SpO2: 93 % SpO2: [90 %-99 %] Intake & Output Intake/Output Summary (Last 24 hours) at 05/01/2021 1255 Last data filed at 05/01/2021 1200 Gross per 24 hour Intake 3894.33 ml Output 1050 ml Net 2844.33 ml Physical Exam ?? General: NAD, non-ill appearing Face: Symmetric without dysmorphic features Eyes: EOMI, conjunctiva healthy Ears: Auricles symmetric, no lesions Nose: Patent nares, grossly normal appearance Oral Cavity/Pharynx: Mucosa is pink, oropharynx symmetric Neck: Soft, laryngectomy stoma with scant bloody secretions, incisions intact, bilateral CHERIE drains with sanguinous output, staple line intact with some sanguinous output R>L neck, no hematoma, Gastric tube sutured in place through stoma to esophagus Chest: Unlabored breathing, regular rate Neuro: Alert & oriented, moving extremities x 4 Labs Recent Labs 05/01/21 0059 04/30/21 0056 WBC 9.0 12.6* HGB 11.6* 12.4* HCT 35.4* 37.8* PLATELET 154 178 NA 138 137 K 3.7 4.3 CL 104 104 CO2 27 23 BUN 12 18 CREATININE 0.61* 0.69* GLUCOSE 183 265* CALCIUM 7.6* 8.2* MAGNESIUM 0.82 0.77 PHOS 2.4* 3.6 Imaging n/a *Personally reviewed and evaluated ASSESSMENT & PLAN Reggie Luan Pena Sr. is a 50 y.o. male s/p laryngectomy and TEP placement, 2 Days Post-Op. Appears to be doing well. Surgical/Head&Neck: Apply aquaphor to incisions Ok to clean laryngectomy trach tube as needed Saline bullets Qhour for secretions PRN Neurologic: Pain controlled with acetaminophen [place], oxycodone PRN Cardiovascular: TERA Pulmonary: Oxygenation on RA Gastrointestinal: Zofran PRN Genitourinary: f/u voids Musculoskeletal: OOB Fluids/Electrolytes: mIVF @ 100 cc/hr ; Nutrition: NPO diet (Give Meds) continuous TF Infectious Disease: WBC 9, Unasyn; Peridex Hematology: Hemoglobin 11.6 Endocrine: Diabetes, on insulin (adjusted 05/01) 1. Lantus??15??units qd 2. Lispro custom correction scale for BG??1:20??>140 3. Meal-associated Lispro ??1unit: 10??gm carb ratio for each meal 4.??For??Peptamen 1.5??tube feed - ??188??grams of carbohydrate per 1000 cc HOLD if tube feed not running HOLD if BG less than??70 Based on 1:16??I:C ratio ??TO COVER THE NEXT 4 HOURS OF TUBE FEEDS 10 -19ml per hour give 0 units every 4 hours 20-39 ml per hour give??1??units every 4 hours 40-55??ml per hour give 2??units every 4 hours If greater than??55ml per hour??or change in tube feed call for new orders. Consults: Endocrine, nutrition, PT/OT Lines: JPx2, TEP NG, 8UN85H, PIV, guy (void trial 05/03) Prophylaxis: Lovenox, SCD, ambulation, H2 Disposition: NSCU, Attempt Cardiopulmonary Resuscitation - Inpatient Discharge: Plan for d/c TBD ; Needs TF and VNA; Follow-up ENT Stephy Bianchi MD, PGY2 05/01/21 12:55 PM ENT Team Pager: [phone] * Tanner Marin RCP - 05/01/2021 11:54 AM EDT Respiratory Care Tracheostomy Note O2 Device: Heated trach collar O2 Flow Rate (L/min): 35 L/min FiO2 (%): 30 % SpO2: 99 % Resp: 14 Airway Type: Shiley Size: Adult Trach: 8.0 Style: UN (Disposable) Securement: Foam Trach Ties Skin Integrity: WDL Trach care: Trach sight clean, trach ties clean. Trach to Go Bag: Spare trach and equipment is in place. Lung Sounds: Clear Secretions: None noted. Assessment: upon exam this AM pt was asleep. The above noted trach was in place. Pt had good bilateral chest rise with clear breath sounds. Pt had no observed work of breathing. Plan: Continue current care plan. * Amy Pratt - 05/01/2021 9:26 AM EDT Nutrition Progress Note Reggie Roland Jean Sidhu is a 50 y.o. male admitted with PMH obesity, T2DM, HTN, Tobacco use (last??this AM with plans to quit), with [id number] SCCa of the supraglottic larynx.??Patient is now s/p total laryngectomy with bilateral neck dissections and placement of NGT through stoma and into esophagus functioning as TEP Reason for intervention: Follow up and Tube-feeding Nutrition Recommendations: Continuous tube feeds: Impact Peptide 1.5 with a goal rate of 63 ml per hour plus 4 scoop(s) of protein powder daily. Bolus tube feeds: Impact Peptide 1.5 375mL 4x/day plus 4 scoop(s) of protein powder daily. At goal, this will provide 1500 ml formula, 2350 calories, 165 grams protein, 1155 ml water from formula + 200 ml water from protein powder administration and 100% of RDI's for vitamins and minerals. Monitor hydration status on above tube feeds, due to concentrated formula. Patient may need additional free water flushes depending on other fluid provisions. Good BG control- Endocrinology following Monitor weight Monitor BMP with mag and phos, replete as necessary I was not able to discuss with patient's provider. Team paged with nutrition recommendations. Pager# [phone]. All Active TF Orders: Tubefeeding Orders (From admission, onward) Start Dose/Rate Route Frequency Ordered Stop 04/30/21 1230 tube feeding diet 1,320 mL 55 mL/hr Per NG tube CONTINUOUS 04/30/21 1138 At goal, this will provide 1320 ml formula, 2130 calories, 160 grams protein, 1016 ml water from formula + 300 ml water from protein powder administration and 100% of RDI's for vitamins and minerals. Enteral access: DHT- through stoma into esophagus Oxygen Therapy/airway: O2 Device: Heated trach collar Lab Results Component Value Date NA 138 05/01/2021 K 3.7 05/01/2021 CL 104 05/01/2021 CO2 27 05/01/2021 BUN 12 05/01/2021 CREATININE 0.61 (L) 05/01/2021 ESTGFR 118 05/01/2021 MAGNESIUM 0.82 05/01/2021 CALCIUM 7.6 (L) 05/01/2021 PHOS 2.4 (L) 05/01/2021 HA1C 7.0 (H) 04/30/2021 Lab Results Component Value Date POCGLU 179 05/01/2021 POCGLU 230 (H) 05/01/2021 POCGLU 174 04/30/2021 POCGLU 156 04/30/2021 POCGLU 154 04/30/2021 POCGLU 163 04/30/2021 Skin Status: Shift Pressure Injury Prevention Occiput: No Injury Thoracic Spine: No Injury Sacral: No Injury Ischial - left: No Injury Ischial - right: No Injury Heel - left: No Injury Heel - right: No Injury Elbow - left: No Injury Elbow - right: No Injury Device Sites: NGT, O2 sat monitor, IV sites, guy, ECG Leads, BP Cuff Other Sites: ID, trach Relevant medications: Colace, Pepcid, Semglee, Humalog, Max-Ox, protein powder, Senokot, NS 100@mL/hr. I/O from last 2 shifts: Intake/Output Summary (Last 24 hours) at 05/01/2021 0927 Last data filed at 05/01/2021 0850 Gross per 24 hour Intake 3883.66 ml Output 1565 ml Net 2318.66 ml Admit Weight: 163.29 kg Estimated body mass index is 48.82 kg/m?? as calculated from the following: Height as of this encounter: 182.9 cm (6'). Weight as of this encounter: 163.3 kg (360 lb). [place] Body Weight: 80.9kg (178lbs) Usual Body Weight: See below Wt Readings from Last 10 Encounters: 04/30/21 (!) 163.3 kg (360 lb) 04/24/21 (!) 158.7 kg (349 lb 14.4 oz) 04/14/21 (!) 160.5 kg (353 lb 14.4 oz) 04/07/21 (!) 160.6 kg (354 lb) 04/07/21 (!) 160.6 kg (354 lb) 03/28/21 (!) 145.2 kg (320 lb) 03/20/21 (!) 158.8 kg (350 lb) 02/27/21 (!) 158.8 kg (350 lb) Assessment: Nutrition intake and intake history/Interview: Peptamen 1.5 running at goal of 55mL/hr this morning. Switch to Impact Peptide 1.5 for increased protein. Continuous and bolus recommendations above. Will continue to monitor for tolerance and adjustas indicated. Estimated needs: Calories: 3449-1868 kcal/kg IBW (25-30 kcal/kg) Protein: 162 grams (2 g/kg IBW) Tolerance or barriers to meeting needs: TBD Nutrition Focused Physical Exam (NFPE): Not performed Protein-calorie Malnutrition: Not identified (Cassidy, JPEN J Parenteral Enteral Nutr. 2012 June; 36(3): 273-83) Nutrition to continue to follow up while inpatient Thank you, Amy Charles Dost * Milagros Roy, JANITORIAL ASSISTANT - 05/01/2021 7:41 AM EDT Follow Up Diabetes Consult Patient Interview Glucose levels and insulin use reviewed Objective Temp: [36.4 ??C (97.5 ??F)-37 ??C (98.6 ??F)] Heart Rate: [71-94] Resp: [16-24] BP: (155-166)/(90-96) SpO2: [90 %-99 %] Heart Rate from SpO2: [70 bpm-94 bpm] Current Regimen from previous note 1. Lantus 15 units qd 2. Lispro custom correction scale for BG 1:20 >140 3. Meal-associated Lispro 1unit: 10 gm carb ratio for each meal 4. For Peptamen 1.5 tube feed - 188 grams of carbohydrate per 1000 cc HOLD if tube feed not running HOLD if BG less than 70 Based on 1:16 I:C ratio TO COVER THE NEXT 4 HOURS OF TUBE FEEDS 10 -19ml per hour give 0 units every 4 hours 20-39 ml per hour give 1 units every 4 hours 40-55 ml per hour give 2 units every 4 hours If greater than 55ml per hour or change in tube feed call for new orders. Recent Glucose Levels Recent Labs 05/01/21 0738 05/01/21 0322 04/30/21 2355 04/30/21 1945 04/30/21 1602 04/30/21 1141 04/30/21 0804 04/30/21 0618 04/30/21 0327 04/30/21 0125 04/29/21 2331 04/29/21 0836 POCGLU 179 230* 174 156 154 163 205* 164 245* 264* 261* 165 ASSESSMENT Patient is a 50 y.o. years old male with PMH significant for DM who was admitted on 04/29/2021 for status post laryngectomy. Diabetes suboptimally controlled and currently complicated by elevated glucose levels. Currently with variability of blood glucose levels while hospitalized requiring adjustment of insulin regimen and DM medications. Due to elevated baseline, recommend increasing Lantus to 17 units. Tube feed changed. Orders added and pended for primary team to sign along with new tube feed orders. PLAN 1. Lantus 17 units qd 2. Lispro custom correction scale for BG 1:20 >140 3. Meal-associated Lispro 1unit: 10 gm carb ratio for each meal 4. For Impact peptide 1.5 tube feed - 140 grams of carbohydrate per 1000 cc HOLD if tube feed not running HOLD if BG less than 70 Based on 1:16 I:C ratio TO COVER THE NEXT 4 HOURS OF TUBE FEEDS 10 -19ml per hour give 0 units every 4 hours 20-49 ml per hour give 1 units every 4 hours 50-63 ml per hour give 2 units every 4 hours If greater than 63 ml per hour or change in tube feed call for new orders. Milagros Roy APRN [facility] Diabetes Management Pager [phone] minutes of this 35 minute visit was spent on diabetes treatment plan, reviewing all glucose and insulin data as well as relevant laboratory results , and coordination of care on the inpatient unitincluding nursing and primary team. * Rickie Mendosa, RT - 05/01/2021 4:33 AM EDT Respiratory Care Tracheostomy Note O2 Device: Heated trach collar O2 Flow Rate (L/min): 35 L/min FiO2 (%): 35 % SpO2: 97 % Resp: 17 Airway Type: Shiley Size: Adult Trach: 8.0 Style: UN (Disposable) Securement: Foam Trach Ties Skin Integrity: WDL Capped: No Trach care: Not needed at this time. Trach to Go Bag: Spare trach and equipment is in place. Lung Sounds: Diminished Secretions: Small Thin/Thick (Middle of the road) Hemoptysis Assessment: Patient tolerating trach fairly well, c/o severe pain during care. Small amount bleeding. Has developed O2 requirement starting ~36 hours ago, likely related to bloody plugs. Plan: Continue current regimen. * Samantha Kay RN - 04/30/2021 6:00 PM EDT Assumed care of the pt at 0700. Pt in bed, awake at change of shift. Pt alert and oriented x4. Assessment complete and documented in EMR. Pt worked with PT/OT today, was able to get up out of bed and into the chair with minimal assistance, tolerated well. Guy removed at approx 1100 hrs. Daughter at the bedside visiting. * Darby Moreira MD - 04/30/2021 5:49 PM EDT Brief Interval Note ID: Reggie Pena Sr. is a 50 y.o. male who presented today for evaluation and possible resection of a laryngeal cancer. General surgery was contacted for gastrostomy placement. He was consented for PEG, open, and lap assisted G tube but ENT requested we only attempt PEG and not open or lap assisted at this time. PEG tube was attempted in the OR yesterday but due to lack of a safe window it was not placed. S/24 hour - Now s/p total laryngectomy with bilateral neck dissections and placement of NGT through stoma andinto esophagus functioning as TEP.?? - Per ENT, patient has no further requirement for a surgical enteral access. A/P: - ACS to sign off. - Please page [phone] if further assistance needed. Casimiro Tyler [facility] General Surgery resident * Tracy Martin MD - 04/30/2021 4:32 PM EDT OTOLARYNGOLOGY - HEAD & NECK SURGERY DAILY PROGRESS NOTE Name: Reggie Pena Sr. Age/Sex: 50 y.o. male Attending: Mat Casper MD Hospital Day: 2 1 Day Post-Op Patient ID/Reason for Admission Reggie Pena Sr. is a 50 y.o. male with PMH obesity, T2DM, HTN, Tobacco use (last??this AM with plans to quit), with [id number] SCCa of the supraglottic larynx. Patient is now s/p total laryngectomy with bilateral neck dissections and placement of NGT through stoma and into esophagus functioning asTEP. Interval History No events overnight. Changed to cuffless trach in laryngectomy stoma, started TF. Vitals Last value 24hr Range Temperature: 36.4 ??C (97.5 ??F) Temp: [36.2 ??C (97.2 ??F)-36.8 ??C (98.24 ??F)] Heart Rate: 80 Heart Rate: [80-114] Blood Pressure: (!) 156/96 BP: (147-167)/(75-99) Respiratory Rate: 20 Resp: [7-37] SpO2: 92 % SpO2: [91 %-100 %] Intake & Output Intake/Output Summary (Last 24 hours) at 04/30/2021 1632 Last data filed at 04/30/2021 1200 Gross per 24 hour Intake 3589.33 ml Output 1885 ml Net 1704.33 ml Physical Exam ?? General: NAD, non-ill appearing Face: Symmetric without dysmorphic features Eyes: EOMI, conjunctiva healthy Ears: Auricles symmetric, no lesions Nose: Patent nares, grossly normal appearance Oral Cavity/Pharynx: Mucosa is pink, oropharynx symmetric Neck: Soft, laryngectomy stoma with scant bloody mucous, incisions intact, bilateral CHERIE drains withsanguinous output, staple line intact with scant sanguinous output, no hematoma, Gastric tube sutured in place through stoma to esophagus Chest: Unlabored breathing, regular rate Neuro: Alert & oriented, moving extremities x 4 Labs Recent Labs 04/30/21 0056 WBC 12.6* HGB 12.4* HCT 37.8* PLATELET 178 NA 137 K 4.3 CL 104 CO2 23 BUN 18 CREATININE 0.69* GLUCOSE 265* CALCIUM 8.2* MAGNESIUM 0.77 PHOS 3.6 Imaging n/a *Personally reviewed and evaluated ASSESSMENT & PLAN Reggie Luan Pena Sr. is a 50 y.o. male s/p laryngectomy and TEP placement, 1 Day Post-Op. Appears to be doing well. Surgical/Head&Neck: Apply aquaphor to incisions Ok to clean laryngectomy trach tube as needed Saline bullets Qhour for secretions PRN Neurologic: Pain controlled with acetaminophen [place], oxycodone PRN Cardiovascular: TERA Pulmonary: Oxygenation on RA Gastrointestinal: Zofran PRN Genitourinary: f/u voids Musculoskeletal: OOB Fluids/Electrolytes: mIVF @ 100 cc/hr ; Nutrition: NPO diet (Give Meds) trickle TF Infectious Disease: WBC 12.6, Unasyn; Peridex Hematology: Hemoglobin 12.4 Endocrine: Diabetes, on insulin 1. Lantus 15 units qd 2. Lispro custom correction scale for BG 1:20 >140 3. Meal-associated Lispro 1unit: 10 gm carb ratio for each meal 4. For Peptamen 1.5 tube feed - 188 grams of carbohydrate per 1000 cc HOLD if tube feed not running HOLD if BG less than 70 Based on 1:16 I:C ratio TO COVER THE NEXT 4 HOURS OF TUBE FEEDS 10 -19ml per hour give 0 units every 4 hours 20-39 ml per hour give 1 units every 4 hours 40-55 ml per hour give 2 units every 4 hours If greater than 55ml per hour or change in tube feed call for new orders. Consults: Endocrine, nutrition Lines: JPx2, TEP NG, [id number], PIV, guy Prophylaxis: Lovenox, SCD, ambulation, H2 Disposition: NSCU, Attempt Cardiopulmonary Resuscitation - Inpatient Discharge: Plan for d/c TBD ; Needs TF and VNA; Follow-up ENT Tracy Martin MD, PGY2 04/30/21 4:32 PM ENT Team Pager: [phone] * Randal Misty L, OT - 04/30/2021 3:08 PM EDT Occupational Therapy Evaluation Patient profile: Per MD: Reggie Pena Sr. is a 50 y.o. male with PMH obesity, T2DM, HTN, Tobacco use (last??this AM with plans to quit), with [id number] SCCa of the supraglottic larynx. Patient is now s/p total laryngectomy with bilateral neck dissections and placement of NGT through stoma and intoesophagus functioning as TEP. Past Medical History: Diagnosis Date ??? Diabetes mellitus ??? Obesity ??? Panniculitis Past Surgical History: Procedure Laterality Date ??? PRO ESOPHAGOSCOPY, DIAGNOSTIC N/A 03/28/2021 ESOPHAGOSCOPY, RIGID OR FLEXIBLE, DIAGNOSTIC W/WO SPECIMEN COLLECTION (WRVU 1.52) performed by Mat Casper MD at [facility] OR ??? PRO LARYNGOSCOPY, DIRCT, OP SCOPE, BIOPSY N/A 03/28/2021 LARYNGOSCOPY, MICROSCOPE, WITH BIOPSY (WRVU 3.55) performed by Mat Casper MD at [facility] ??? PRO LARYNGOSCOPY, DIRCT, OP SCOPE, BIOPSY N/A 04/29/2021 LARYNGOSCOPY, MICROSCOPE, WITH BIOPSY (WRVU 3.55) performed by Mat Casper MD at [facility] ? ? PRO PART REMOVAL TONGUE, <1/2 Bilateral 04/29/2021 GLOSSECTOMY, LESS THAN ONE-HALF TONGUE (WRVU 11.14) performed by Mat Casper MD at [facility] MA[facility] OR ??? PRO RAD RESEC TONSIL/PILLARS Left 04/29/2021 RADICAL RESECTION OF TONSIL, PILLARS, RETROMOLAR TRIGONE, NO CLOSURE (WRVU 12.23) performed by Mat Casper MD at [facility] OR ? ? PRO REMV LARYNX & PHARYNX Bilateral 04/29/2021 @PHARYNGOLARYNGECTOMY, NECK DISSECTION, NO RECON (WRVU 42.51) performed by Mat Casper MD at [facility] OR ??? PRO UPPER GI ENDOSCOPY, DIAGNOSTIC N/A 04/29/2021 ENDOSCOPY, UPPER GI, DIAGNOSTIC, WITH OR WITHOUT SPECIMENS performed by Raghav Webb MD at [facility] OR Social History: Patient lives alone in a one level home in [place]. Home Setup: Pt reports 3 MARLON. Pt has a walk in shower. Pt reports 3 recliner chairs, but typically sleeps in a regular flat bed. DME: None Baseline ADL/Mobility: Pt typically independent with all ADL and IADL routines. 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 Pt has 3 children that are supportive, but donot live close. Pt friend Gabriel works, but can assist Pt s/p discharge. Precautions/Special Considerations: NPO, full code, 2 CHERIE drains, activity as tolerated, trach, HFNCvia trach mask Subjective: Pt primarily using head nods and shakes to answer questions Objective: Seen today for OT evaluation. Cognitive Status/Behavior: ?? Behavior / Mood: cooperative and lethargic ?? Alert and oriented to: person; not otherwise assessed ?? Follows commands: 1 step, 2 step and 100% of the time ?? Attention: WFL ?? Safety awareness: appeared WFL, will continue to assess Vision & Perception: ?? WNL/WFL without glasses; per Pt ?? Warrants further assessment; did not assess Communication: non-verbal and gestures (writing would be another option, however, Pt did not use this date). Pt using head nods/shakes primarily Range of motion, strength, coordination: Hand dominance: left Bilateral UEs are within functional limitations LE limitations: WFL Sensation: Did not formally assess; however, Pt denied any parasthesias Activities of Daily Living: Self-feeding: NPO Grooming: Did not assess Dressing: Dependent for socks; min A for threading underwear at EOB; Pt able to hike at standing Bathing: Did not assess Toileting: Transfer: Recommend one person CGA Hygiene: Functional Mobility: Supine to sit: Supervision with HOB ~45 degrees Sit to stand: CGAx2 Ambulation: CGA x2 ~4 ft to recliner chair via stand step transfer Stand to sit: CGA Sit to supine: Did not assess; Pt left up in recliner chair at end of session with all needs withinreach Balance: Sitting balance: Good Standing balance: Good Vitals: At Rest SpO2 98% on 30% trach mask at 25L/min Heart Rate 80's Blood Pressure 166/01 pre session Pain: 6/10; neck incision Skin: CHERIE drainx2 intact Education: patient have been educated on Role of occupational therapy/rehabilitation, Transfers, ADL, Positioning, Safety, Precautions/Protocol, Functional Mobility, Balance, Recommendations and Disch arge planning and demonstrates understanding. Patient status, treatment, and mobility recommendations discussed with nursing. Assessment: Pt has been seen for occupational therapy evaluation. Reggie Pena Sr. presents with the following performance skill deficits and client factors: increased pain, decreased activity tolerance, decreased sitting/standing balance, body habitus, communication deficits, deconditioning, preca utions/bracing and skin integrity. These performance deficits have led to activity limitations and participation restrictions in the following areas of occupation: dressing, bathing, grooming, toileting, self-feeding, transfers/mobility, rest/sleep, home management, work, driving, community mobility, communication and social participation. Pt seen for OT evaluation in conjunction with PT services. Pt participated in transfer OOB to recliner chair. Pt noted to require assistance for ADL and transfers this date, but anticipate Pt will be safe to return home when medically stable. Pt would benefit from further inpatient OT interventions to address performance deficits and maximize participation and independence with occupations of daily living. Equipment needs at discharge: TBD Anticipated Discharge Disposition (OT): home with home health and support from family/friends Other Recommendations: ?? Utilize upright chair position using bed features or transfer to recliner chair as appropriate with CGA, ambulate as tolerated ?? Encourage participation in ADL's by providing set up A on tray table and physical assist only asneeded Other Recommendations: Speech Language Pathology consult Goals: To be achieved by 05/09/21. 1. Pt will be conditional independent for LB dressing routines with AE as needed at seated/standinglevels 2. Pt will be conditional independent for toileting routine at ambulatory level 3. Pt will be able to make wants and needs known using universal approach on all occasions 4. Pt will be able to stand for 8 minutes to perform sink level grooming task with LRAD?? Plan: OT: Therapy Frequency (OT): 1-3 times/wk Planned OT interventions: Role of occupational therapy/rehabilitation, Transfers, Assistive device/technique, Adaptive equipment training, ADL, Exercise, Breathing exercises, Positioning, Safety, Precautions/Protocol, Functional Mobility, Activity pacing/Energy conservation, Home Program, Home Management, Balance, Recommendations, Family training and Discharge planning. Total Minutes, Occupational Therapy: 32 (1 mod eval) 2017 OT Evaluation Code Rationale: ?? Diagnosis & Pertinent Co-Morbidities affecting Plan of Care: see PMHx ?? Occupational Profile & Client History: Brief Expanded Extensive x ?? Assessment of Occupational Performance: 1-3 performance deficits 3-5 performance deficits x 5 + performance deficits ?? Clinical Decision Making: Low Moderate High x Clinical decision making of moderate complexity using standardized patient assessment instrument and measurable assessment of functional outcome. Pager: [phone] Misty Tee OT 04/30/2021 Occupational Therapy Rehabilitation Department * Katherine Brewster, PT - 04/30/2021 2:31 PM EDT Physical Therapy Evaluation Patient profile: Reggie Pena Sr. is a 50 y.o. male admitted with H obesity, T2DM, HTN, Tobacco use, with [id number] SCCa of the supraglottic larynx.??Patient is now s/p total laryngectomy with bilateral neck dissections and placement of NGT through stoma and into esophagus functioning as TEP, 04/29/21. ?? Patient with the following active problems: Past Medical History: Diagnosis Date ??? Diabetes mellitus ??? Obesity ??? Panniculitis Past Surgical History: Procedure Laterality Date ??? PRO ESOPHAGOSCOPY, DIAGNOSTIC N/A 03/28/2021 ESOPHAGOSCOPY, RIGID OR FLEXIBLE, DIAGNOSTIC W/WO SPECIMEN COLLECTION (WRVU 1.52) performed by Mat Casper MD at [facility] OR ??? PRO LARYNGOSCOPY, DIRCT, OP SCOPE, BIOPSY N/A 03/28/2021 LARYNGOSCOPY, MICROSCOPE, WITH BIOPSY (WRVU 3.55) performed by Mat Casper MD at [facility] ??? PRO LARYNGOSCOPY, DIRCT, OP SCOPE, BIOPSY N/A 04/29/2021 LARYNGOSCOPY, MICROSCOPE, WITH BIOPSY (WRVU 3.55) performed by Mat Casper MD at [facility] ? ? PRO PART REMOVAL TONGUE, <1/2 Bilateral 04/29/2021 GLOSSECTOMY, LESS THAN ONE-HALF TONGUE (WRVU 11.14) performed by Mat Casper MD at [facility] ??? PRO RAD RESEC TONSIL/PILLARS Left 04/29/2021 RADICAL RESECTION OF TONSIL, PILLARS, RETROMOLAR TRIGONE, NO CLOSURE (WRVU 12.23) performed by Mat Casper MD at [facility] ? ? PRO REMV LARYNX & PHARYNX Bilateral 04/29/2021 @PHARYNGOLARYNGECTOMY, NECK DISSECTION, NO RECON (WRVU 42.51) performed by Mat Casper MD at [facility] ??? PRO UPPER GI ENDOSCOPY, DIAGNOSTIC N/A 04/29/2021 ENDOSCOPY, UPPER GI, DIAGNOSTIC, WITH OR WITHOUT SPECIMENS performed by Raghav Webb MD at [facility] Active Non-Hospital Problems Diagnosis ??? Squamous cell carcinoma of supraglottis ??? Diabetes mellitus type 2, uncontrolled (DM) ??? Morbid obesity ??? Hypertension (HTN) ??? Tobacco abuse ??? Panniculitis Social History: Home set-up: Lives alone. One level home. 3 adult children, unclear how far away. Has a nearby friend Gabriel who can assist as needed. Bathroom Set-up: Walk in shower. Stairs: 3 MARLON without a railing Baseline Mobility: Walks without devices. Independent. 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 Equipment at home: none Fall history: none Precautions/Special Considerations: Strict NPO; tracheostomy; NG in TEP; PIV; 2 CHERIE drains ant neck;Trach mask 30% Activity Orders: AAT Mobility and Positioning Recommendations: ?? Pt. to utilize hand held assist and 1-2 assist for ambulation and transfers with nursing. ?? Please encourage up to chair for meal times as able. ?? Pt encouraged to ambulate with staff, getting into the bathroom for toileting and walking out inthe galvan >/= 3 times daily as able. ?? Subjective: Pt mouths that he is tired. Objective: Pt seen for evaluation today. Pain: 6/10 pain at surgical site Vital Signs: At Rest With Activity SpO2 (30% trach mask, 25L) 98% 97-98% BP (MAP) 160-170/100 mmHg 140-150/90-100 mmHg HR 80s bpm 80-90 bpm Mental Status: alert, oriented to person, place, and time. Pleasant. Vision: Wfls Skin: Morton ant neck, tracheostomy, JPs Musculoskeletal: ROM: B shoulder Active flex at least 90-100. Rest of BUE AROM wfls. Sits EOB with B hips, knees andankles at least 90. Strength: B ankle DF 5/5, Can SLR BLEs. See OT notes for UEs. Sensation: Denies numbness or paresthesias. Bed Mobility: Supine to Sit: HOB elevated to ~45-50 degrees, bed rails, min assist of 2. Sit to Supine: NE Transfers: Sit to Stand: cga of 2 Stand to Sit: same Gait: Distance: ~3' and pivot Device used: none Level of assist: 2 hand held assist Stairs: NE Balance: Sitting Static: good Sitting Dynamic: good Standing Static: fair Standing Dynamic / Gait: fair Pt coughed many times with yankeur needed to suction trach. Nursing in the room entire session. Education: patient and daughter has been educated on Bed mobility, Transfers, Positioning, Gait , Role of therapy, Balance and Discharge planning and needs reinforcement. understanding. Patient status, treatment, and mobility recommendations discussed with nursing. Pt sat upright in chair for a few minutes then asked to be reclined. Pillows placed under arms and LEs Assessment: Reggie Pena Sr. was seen today for physical therapy and OT co- evaluations given size and need of pt.. Pt is HD 2, POD 1. Pt is functionally limited and in need of ongoing PT 2/2 the following: pain; decreased communication (did not want a communication board or clip board with paper); acute on chronic medical conditions; lives alone; HTN; altered skin integrity; O2 needs; airway clearance needs; grossly weak and decreased ROM given body habitus; and resultant gait, transfer, bed mobility, endurance and balance deficits. Pt is otherwise young and independent. He appears to have good external home supports. Expect pt will progress well and likely need no ongoing PT or DME, at time of dc. The pt would benefit from skilled therapy services while in the hospital to maximize functional abilities. Discharge Recommendations: Based on the current findings, Anticipated Discharge Disposition (PT): (Home with family support asneeded. Doubt ongoing PT needs) when medically ready for hospital discharge. Consult Recommendations: No other consults recommended at this time. Equipment needs: Anticipated Equipment Needs at Discharge (PT): None Goals: To be achieved by 05/09/21: 1. Pt. to perform bed mobility with modified independence. 2. Pt. to perform sit<>stand transfers with modified independence using no assistive device. 3. Pt. to ambulate >150 feet with modified independence using a no assistive device. 4. Pt. to ambulate up/down 3 step/stairs using one hand hold with supervision. 5. Family or caregiver to demonstrate understanding of therapeutic interventions to support the care of the patient. 6. Pt will tolerate progression towards upright with stable vital signs. Plan: Therapy Frequency (PT): 2-4 times/wk for therapy including balance training, bed mobility training, gait training, patient/family education, stair training, strengthening and transfer training.Patient/family understand and agree with plan as stated above. 2017 PT Evaluation Code Rationale: ?? Diagnosis & Pertinent Co-Morbidities, personal factors, and present illness affecting Plan of Care: (see above); Additional personal factors or co- morbidities that impact plan: ?? Total # of Factors: 0 1-2 3+ x ?? Examination of body system impairments, functional limitations and behaviors, and/or participation restrictions. Addressing 1-2 elements Addressing 3 + elements Addressing 4 + elements x ?? Clinical presentation: See assessment above. Stable/Uncomplicated Evolving/Fluctuating Symptoms Unstable/Unpredictable x ?? Clinical decision making of moderate complexity based on pt's functional performance as outlinedin this evaluation. Time IN / OUT: 9955-7361 Total Minutes, Physical Therapy: 30 KATHERINE BREWSTER, PT Pager: [phone] Physical Therapy Inpatient Rehabilitation Department * Erika Mora, RD - 04/30/2021 11:10 AM EDT Nutrition Consult Note Reggie Roland Jean Ramirez. is a 50 y.o. male admitted with PMH obesity, T2DM, HTN, Tobacco use (last??this AM with plans to quit), with [id number] SCCa of the supraglottic larynx. Patient is now s/p total laryngectomy with bilateral neck dissections and placement of NGT through stoma and into esophagus functioning as TEP Reason for intervention: Tube-feeding Nutrition Recommendations: Continuous tube feeds: Impact Peptide 1.5 with a goal rate of 55 ml per hour plus 6 scoop(s) of protein powder daily. At goal, this will provide 1320 ml formula, 2130 calories, 160 grams protein, 1016 ml water from formula + 300 ml water from protein powder administration and 100% of RDI's for vitamins and minerals. Bolus tube feeds: 330 ml Peptamen 1.5, 4 times daily. Plus 6 scoops protein powder Please flush with 60 cc free water before and after each feed Monitor hydration status on above TFs as they are concentrated. Pt may need additional fluids depending on IVFs, med flushes, p.o. Intake, etc. Good BG control - endo following Monitor weight. Monitor BMP with mag and phos - replace as necessary I was able to discuss plan with provider ENT Surgery. Enteral access: DHT - through stoma into esophagus Oxygen Therapy/airway: O2 Device: Heated trach collar Lab Results Component Value Date NA 137 04/30/2021 K 4.3 04/30/2021 CL 104 04/30/2021 CO2 23 04/30/2021 BUN 18 04/30/2021 CREATININE 0.69 (L) 04/30/2021 ESTGFR 112 04/30/2021 MAGNESIUM 0.77 04/30/2021 CALCIUM 8.2 (L) 04/30/2021 PHOS 3.6 04/30/2021 Lab Results Component Value Date POCGLU 205 (H) 04/30/2021 POCGLU 164 04/30/2021 POCGLU 245 (H) 04/30/2021 POCGLU 264 (H) 04/30/2021 POCGLU 261 (H) 04/29/2021 Skin Status: Shift Pressure Injury Prevention Occiput: No Injury Thoracic Spine: No Injury Sacral: No Injury Ischial - left: No Injury Ischial - right: No Injury Heel - left: No Injury Heel - right: No Injury Elbow - left: No Injury Elbow - right: No Injury Device Sites: NGT, O2 sat monitor, SCD's/venodynes, IV sites, guy, BP Cuff Other Sites: ID, trach Relevant medications: lispro, mag ox, NS@100ml/hr I/O from last 2 shifts: Intake/Output Summary (Last 24 hours) at 04/30/2021 1110 Last data filed at 04/30/2021 0700 Gross per 24 hour Intake 6030 ml Output 1615 ml Net 4415 ml Admit Weight: 163.29 kg Estimated body mass index is 48.82 kg/m?? as calculated from the following: Height as of this encounter: 182.9 cm (6'). Weight as of this encounter: 163.3 kg (360 lb). [facility] Body Weight: 80.9 kg - [place] Usual Body Weight: see below Wt Readings from Last 10 Encounters: 04/30/21 (!) 163.3 kg (360 lb) 04/24/21 (!) 158.7 kg (349 lb 14.4 oz) 04/14/21 (!) 160.5 kg (353 lb 14.4 oz) 04/07/21 (!) 160.6 kg (354 lb) 04/07/21 (!) 160.6 kg (354 lb) 03/28/21 (!) 145.2 kg (320 lb) 03/20/21 (!) 158.8 kg (350 lb) 02/27/21 (!) 158.8 kg (350 lb) Assessment: Nutrition intake and intake history/Interview: Estimated needs: Calories: 1615 - 2025 (20 - 25 kcal/kg IBW) Protein: 160 - 200 grams (2 - 2.5 g/kg IBW) Tolerance or barriers to meeting needs: tbd Nutrition Focused Physical Exam (NFPE): Not performed Protein-calorie Malnutrition: Not identified (KRISTINE Benjamin J Parenteral Enteral Nutr. 2012 June; 36(3): 273-83) Nutrition to continue to follow up while inpatient Erika Mora RD Pager #:[phone] * Duy Tracey RCP - 04/30/2021 9:28 AM EDT Respiratory Care Tracheostomy Note O2 Device: Heated trach collar O2 Flow Rate (L/min): 35 L/min FiO2 (%): 30 % SpO2: 97 % Resp: 20 Airway Type: Shiley Size: Adult Trach: 8.0 Style: UN (Disposable) Securement: Foam Trach Ties Skin Integrity: Exception: Reddened with drainage Capped: No Trach care: Not needed at this time. Trach to Go Bag: Spare trach and equipment is in place. Secretions: Assessment: Pt received with the above trach securely in place with foam trach ties. ENT changed trach to a Shiley 8 prior to my seeing pt this morning. Pt did not complain of increased WOB. Plan: Continue to follow. * Tracy Martin MD - 04/30/2021 7:56 AM EDT Laryngectomy Tube Exchange Procedure note: The existing 6 LGT cuffed tube was removed and the helen-stomal skin was cleansed. The tract was examined, findings below. A new 8 uncuffed trach was passed into the laryngectomy stoma and the ties were secured. Findings: - 6 LGT cuffed tube removed. - 8 uncuffed size tube placed without difficulty - Helen-stomal skin intact. Stoma healthy appearing without false passages or significant granulation tissue. NG in TEP position in place. Recommendations: -Ok for routine changes or cleaning of laryngectomy trach tube as needed. Patient has a surgical airway and cannot be intubated from above. Follow-Up: ENT patient. We will continue to see daily * Alfonso Schreiber RN - 04/30/2021 5:10 AM EDT OUTCOME EVALUATION NOTE: OUTCOME SUMMARY: Pt admitted from PACU 2230. A&Ox4, on heated humidified trach collar, 6 schylee cuffed. NG clamped and sutured to chest from laryngectomy stoma. Guy draining CYU. Pt oriented to call bianchi and unit routine. Persistent hyperglycemia, aware. inclusion special educator to see patient today. Belongings at bedside, medicated for pain per EMAR. ~0330 pt with bloody secretions, x2 clots suctioned by this RN, x1 by RT. Sats decreased after suctioning, 02 titrated per flowsheets. RT to bedside for salinelavage. Trach kit at bedside. 0635 ENT at bedside, switched trach from 6 cuffed to 8 uncuffed. PLAN MOVING FORWARD: Q4 vitals Voiding trial Pain management Wean 02 as tolerated Begin tube feeds via NG Alfonso Schreiber RN * Rickie Mendosa, RT - 04/30/2021 3:56 AM EDT Respiratory Care Tracheostomy Note O2 Device: Heated trach collar O2 Flow Rate (L/min): (S) 35 L/min FiO2 (%): 30 % SpO2: 94 % Resp: (!) 37 Airway Type: Shiley Size: Adult Trach: 6.0 Style: CN (Disposable) Cuff Pressure: 0 Securement: Foam Trach Ties and Sutures Skin Integrity: WDL Capped: No Trach care: Performed Trach to Go Bag: Spare trach and equipment is in place. Lung Sounds: Diminished Secretions: Small thick blood clots, some blood. Assessment: Patient tolerating HTC well, producing bloody secretions. Late shift SpO2 decrease resolved by clearing of blood/mucus plug; ~0345. Plan: Continue current regimen * Stephy Bianchi MD - 04/29/2021 10:23 PM EDT OTOLARYNGOLOGY - HEAD & NECK SURGERY POST OP CHECK Name: Reggie Pena Sr. Age/Sex: 50 y.o. male Attending: Mat Casper MD Hospital Day: 1 Day of Surgery Patient ID/Reason for Admission Reggie Pena Sr. is a 50 y.o. male with PMH obesity, T2DM, HTN, Tobacco use (last this AM with plans to quit), with [id number] SCCa of the supraglottic larynx. Patient is now s/p total laryngectomy with bilateral neck dissections and placement of NGT through stoma and into esophagus functioning as TEP. Interval History Surgery: Procedure(s): @PHARYNGOLARYNGECTOMY, NECK DISSECTION, NO RECON (WRVU 42.51) GLOSSECTOMY, LESS THAN ONE-HALF TONGUE (WRVU 11.14) RADICAL RESECTION OF TONSIL, PILLARS, RETROMOLAR TRIGONE, NO CLOSURE (WRVU 12.23) ENDOSCOPY, UPPER GI, DIAGNOSTIC, WITH OR WITHOUT SPECIMENS LARYNGOSCOPY, MICROSCOPE, WITH BIOPSY (WRVU 3.55) Subjective/Events: Patient denies fever, chills, chest pain, shortness of breath, dizziness, headache, abdominal pain, nausea, vomiting, numbness, tingling. Pain well-controlled. Vitals Last value 24hr Range Temperature: 36.2 ??C (97.2 ??F) Temp: [36.2 ??C (97.2 ??F)-36.5 ??C (97.7 ??F)] Heart Rate: 87 Heart Rate: [69-88] Blood Pressure: 147/75 BP: (129-167)/(75-99) Respiratory Rate: 12 Resp: [7-17] SpO2: 96 % SpO2: [92 %-100 %] Intake & Output Intake/Output Summary (Last 24 hours) at 04/29/20212222 Last data filed at 04/29/2021 2100 Gross per 24 hour Intake 5000 ml Output 440 ml Net 4560 ml Physical Exam General: NAD, non-ill appearing Face: Symmetric without dysmorphic features Eyes: EOMI, conjunctiva healthy Ears: Auricles symmetric, no lesions Nose: Patent nares, grossly normal appearance Oral Cavity/Pharynx: Mucosa is pink, oropharynx symmetric Neck: Soft, laryngectomy stoma with scant bloody mucous, incisions intact, bilateral CHERIE drains withsanguinous output, staple line intact with scant sanguinous output, no hematoma, Gastric tube sutured in place through stoma to esophagus Chest: Unlabored breathing, regular rate Neuro: Alert & oriented, moving extremities x 4 Labs No results for input(s): WBC, HGB, HCT, PLATELET, PT, INR, PTT, NA, K, CL, CO2, BUN, CREATININE, GLUCOSE, CALCIUM, MAGNESIUM, PHOS in the last 72 hours. Imaging No post-imaging ASSESSMENT & PLAN Reggie Pena Sr. is a 50 y.o. male s/p above procedure. Patient is doing well postoperatively. Continue with current care plan. Hold lovenox and ibuprofen tonight. NGT is OK to use. __ Stephy Bianchi MD, PGY1 04/29/21 10:23 PM ENT Team Pager: [phone] documented in this encounter H&P Notes * Raghav Webb MD - 04/29/2021 11:16 AM EDT [facility] Acute Care Surgery History and Physical HPI: Reggie Pena Sr. is a 50 y.o. male who presents for partial laryngectomy today for [id number] SCCa of the supraglottic larynx. General Surgery was consulted for a feeding access. The patient has not been on anticoagulation. He does not take any steroids. Past Medical History: Diagnosis Date Diabetes mellitus Obesity Panniculitis Past Surgical History: Procedure Laterality Date PRO ESOPHAGOSCOPY, DIAGNOSTIC N/A 03/28/2021 ESOPHAGOSCOPY, RIGID OR FLEXIBLE, DIAGNOSTIC W/WO SPECIMEN COLLECTION (WRVU 1.52) performed by Mat Casper MD at [facility] OR PRO LARYNGOSCOPY, DIRCT, OP SCOPE, BIOPSY N/A 03/28/2021 LARYNGOSCOPY, MICROSCOPE, WITH BIOPSY (WRVU 3.55) performed by Mat Casper MD at [facility] No current facility-administered medications on file prior to encounter. Current Outpatient Medications on File Prior to Encounter Medication Sig Dispense Refill metFORMIN (GLUCOPHAGE) 1,000 mg Tablet Take 1,000 mg by mouth 2 times daily (with meals). glipiZIDE (GLUCOTROL) 10 mg Tablet Take 10 mg by mouth 2 times daily (before meals). [DISCONTINUED] enoxaparin (LOVENOX) 40 mg/0.4 mL Syringe Inject 0.4 mLs subcutaneously daily. (Patient not taking: No sig reported) [DISCONTINUED] acetaminophen (TYLENOL) 325 mg Tablet Take 2 tablets by mouth every 6 hours as needed for Pain or Fever. (Patient not taking: No sig reported) 30 tablet 1 [DISCONTINUED] insulin aspart (NOVOLOG) Solution Inject 5 Units subcutaneously 3 times daily (before meals). (Patient not taking: No sig reported) 10 mL 12 [DISCONTINUED] insulin glargine (LANTUS) Solution Inject 28 Units subcutaneously nightly. (Patient not taking: No sig reported) 10 mL 12 [DISCONTINUED] lisinopril (PRINIVIL;ZESTRIL) 10 mg Tablet Take 1 tablet by mouth daily. (Patient not taking: No sig reported) 30 tablet 12 [DISCONTINUED] nystatin (MYCOSTATIN) Cream Apply topically 2 times daily. 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 Vaping Use Vaping Use: Never used Substance and Sexual Activity Alcohol use: No Alcohol/week: 0.0 standard drinks Comment: rare alcohol Drug use: No Sexual activity: Not Currently Partners: Female Other Topics Concern Not on file Social History Narrative Not on file Social Determinants of Health Financial Resource Strain: Low Risk Difficulty of Paying Living Expenses: Not hard at all Food Insecurity: No Food Insecurity Worried About Running Out of Food in the Last Year: Never true Ran Out of Food in the Last Year: Never true Transportation Needs: No Transportation Needs Lack of Transportation (Medical): No Lack of Transportation (Non-Medical): No Physical Activity: Not on file Housing Stability: High Risk Unable to Pay for Housing in the Last Year: No Number of Places Lived in the Last Year: 1 Unstable Housing in the Last Year: Yes Patient Vitals for the past 24 hrs: BP Temp Temp src Pulse Resp SpO2 04/29/21 0838 129/83 36.5 ??C (97.7 ??F) Temporal 69 17 99 % PE: Gen: No acute distress, alert and answers questions appropriately CV: Regular rate Pulm: Unlabored breathing Abd: Abdomen soft and non-tender Ext: No peripheral edema Plan: Reggie Pena Sr. is a 50 y.o. male who presents for percutaneous endoscopic, possible open gastrostomy tube placement. He has no further questions and agrees to proceed. Darby Resendez MD [phone] Attending Addendum I have seen and examined the patient, I have reviewed the vitals, labs and pertinent imaging. I have discussed the documentation above and agree, with the following comments: Mr. Pena is a 50yoM with history of obesity, DM, HTN, smoker, who has SCC requiring partial vs total laryngectomy today. We are consulted for enteral access. We discussed indications for PEG / Gtube. We discussed that given his body habitus and findings on his prior imaging, his anatomy may not beamenable to a PEG approach. If this is the case, we may require an alternate approach (lap assistedPEG vs open Gtube). We discussed risks of the procedure including bleeding, infection, need for additional procedures, injury to adjacent structures. Raghav Webb MD [phone] UPDATE : I discussed the case with Dr. Casper - per his request, given the extent of their operative intervention, we will proceed with PEG attempt only. If unable, we will defer lap assisted PEG or open procedure at this time and will proceed at a future time in coming days based upon their preference. Raghav Webb MD * Stephy Bianchi MD - 04/29/2021 9:18 AM EDT OTOLARYNGOLOGY - HEAD & NECK SURGERY INTERVAL H&P NOTE Name: Reggie Pena Sr. Age/Sex: 50 y.o. male Attending: Mat Casper MD Hospital Day: 1 Day of Surgery Interval History Reggie Pena Sr. is a 50 y.o. male with PMH obesity, T2DM, HTN, Tobacco use (last this AM with plans to quit), with [id number] SCCa of the supraglottic larynx. Plan for partial laryngectomy today. There have been no changes to his history. COVID Test in process. Patient denies symptoms of COVID,exposure to COVID or any known COVID contacts. Denies alcohol use, denies changes to medical history or medications. Physical Exam Patient Vitals for the past 24 hrs: Temp Pulse Resp BP SpO2 O2 Device 04/29/21 0838 36.5 ??C (97.7 ??F) 69 17 129/83 99 % RA Gen: No acute distress, alert and answers questions appropriately CV: Regular rate Pulm: Unlabored breathing Abd: Abdomen soft and non-tender Ext: No peripheral edema ASSESSMENT & PLAN Plan for partial laryngectomy and neck dissection. Consent signed, dated, placed in chart Ok to proceed with scheduled operation. Stephy Bianchi MD, PGY1 04/29/21 9:19 AM ENT Team Pager: [phone] documented in this encounter Miscellaneous Notes * Initial Assessments - Mat Ball, APPAREL MANUFACTURE INSTRUCTOR - 05/07/2021 10:44 AM EDT Department of Rehabilitation Medicine Speech Pathology Plan Of Care TEP Re-Evaluation/Placement Reggie Roland Jean Ramirez. : 1970 04/21/2021 10:44 AM Total Evaluation Time: 55 min. Eval. Time Codes: 0 min. Evaluation Type: TEP Diagnosis/Diagnosis Code(s): R49.1 (Aphonia), R13.10 (Dysphagia Unspecified), Z98.89 (History of Laryngectomy) Referring Physician: Mat Casper MD Evaluation Procedures: Direct assessment/re-placement of TEP/stoma and Pt/Caregiver education and training Functional Limitations: Aphonia and dysphagia s/p total laryngectomy with need for alaryngeal communication. History: Pt. Is a 50 y.o. male, with history of obesity, T2DM, HTN, Tobacco use (with plans to quitafter this admission), with [id number] SCCa of the supraglottic larynx. S/P total laryngectomy and primary creations of TEP on 04/29/21. Speech now consulted for primary fitting and placement of TEP aswell as education. PMH Past Medical History: Diagnosis Date ??? Diabetes mellitus ??? Obesity ??? Panniculitis S: ??? Pt. denies significant pain or distress at this time ??? No family present for discussion/support O: ??? Reviewed record ??? Pt was referred by Mat Casper MD (ENT) for assessment and re- placement of TEP Oral-Peripheral/Neck Examination ??? NGT in place maintaining TEP tract. NGT between 18Fr. And 20Fr. NGT is sutured to chest. ENT resident removed sutures. ??? Patent stoma. Rena tube in place. Rena tube removed. ??? Oral structures and functions appear WNL/WFL ??? Minimal dried tracheal secretions TEP Placement ??? Removed NGT. ??? 18Fr. Dilator placed. Tract dilated easily to 18Fr. ??? 22Fr. Dilator placed. Resistance noted at approximately 20 Fr. Indicating tract is likely 20Fr. ??? Sizer placed. Pt sized to 16mm. ??? 16mm 20Fr Ryan Veronica Classic TEP placed ??? No leakage noted through or around TEP at this time ??? Phonation was not attempted per ENT to avoid any airpressure in neopharynx. HME ??? To be discussed at later date. Pt/Caregiver Education & Training ??? Reviewed flushing and brushing of TEP with pt. Pt indicated understanding. Provided written instructions. ??? Reviewed how to place red rubber catheter should TEP become accidentally dislodged. Written instruction provided to patient. ??? Reviewed HME. ??? Reviewed need to wear shower guard during showering to minimize risk of aspiration. Provided shower guard. ??? Reviewed need to be careful around water to avoid drowning as pt is unable to hold his breath. ??? Reviewed electrlarynx. Pt elected to receive electrolarynx when he returns as an OP. ??? Reviewed inability to blow his nose due to anatomy changes and need to purchase nasal irrigation system of his choice. Supplies Provided to Pt/Caregiver ??? 16mm 20fr Ryan Veronica Classic TEP A: Pt tolerated initial TEP placement well. No leakage through or around at this time. Phonation not attempted at this time per ENT. Above education provided. Will plan to follow-up as an OP Recommendations ?? Flush TEP with saline at least 3x/day ?? [place] TEP PRN ?? Contact ENT/APPAREL MANUFACTURE INSTRUCTOR with any ?'s or concerns re: TEP. Current Goals ??? Pt to demonstrate good comprehension of stomal and TEP care/maintenance. ??? Pt to demonstrate good comprehension of use of TEP. P: ??? Speech Pathology to follow 2-3 times weekly during acute hospitalization. ??? Pt. is in agreement with plan of treatment Mat Ball MS, CCC-APPAREL MANUFACTURE INSTRUCTOR Speech-Language Pathologist Rehabilitation Medicine Pager # [phone] * Plan of Care - Octavia Arteaga RN - 05/06/2021 3:42 PM EDT OUTCOME EVALUATION NOTE: OUTCOME SUMMARY: BP elevated today, administered PRN labetolol x2 today with good effect. Afebrile. Rena tube in place on heated trach collar, O2 flow rate 30L/min, FiO2 30%. Administered scheduled nebulizers, provided trach care, and shallow/surface suctioning of the cup of the Rena tube with yankauer. O2 sats in mid-high 90's. Patient has productive cough with thick, white-yellow secretions. Patient denies pain. Cleansed neck incision elysia per orders. Patient on clears diet, tolerating small amounts of powerade. Bolus feeds administered through NGT that is inserted into esophagus through laryngectomy stoma. Patient voiding adequately, 1 BM today. Independent in room. 1535--patient reports tube feed coming out of laryngectomy stoma. Tube feed not running at this time. Cleansed rena tube. Notified MD via page for assessment. NGT at 15 cm. MD advanced to 47 cm and ordering KUB for placement. PLAN MOVING FORWARD: Monitor VS and I/O RT to assess and assist w/trach/rena tube. Tube feeds. Q4 BG and insulin protocol DC planning INDIVIDUALIZED FALL PREVENTION INTERVENTIONS: Patient-specific fall risk factors per assessment: [current deficits]: Tethering lines. Assistance [level of assistance required for transfers and ambulation]: Independent. Supervision [direct monitoring required during toileting and ADLs]: Eyes on. Surveillance [continuous indirect monitoring]: Masimo, call bianchi w/in reach, purposeful rounding, room near nurse station. Patient-specific fall prevention interventions for sensory deficits provided, if applicable: Yes, non skid socks when OOB. CPG GOAL OUTCOME EVALUATION: Ongoing. * Initial Assessments - Deborah Sprague RN - 05/02/2021 1:21 PM EDT Office of Care Management Initial Assessment Deborah Sprague RN reviewed record and discussed patient with Care Team. Source of Information: Team, bedside nurse, medical record, and Patient, Chart Review, Parent, Child Introduced self/reviewed role; services accepted. Reason for Hospitalization: laryngectomy Covid Vaccination Status: Unvaccinated Last COVID test: Lab Results Component Value Date [id number] Not Detected 04/29/2021 Past medical History: Past Medical History: Diagnosis Date ??? Diabetes mellitus ??? Obesity ??? Panniculitis Hospitalizations Within the Past 30 Days: no previous admission in last 30 days Current Decision-Making Capacity: Self Advance Care Planning: Attempt Cardiopulmonary Resuscitation - Inpatient <no information> -Advanced Directive: No, need to discuss If AD's have not been completed Milagros-dtr would be surrogate decision maker per [place] surrogate decision making law. (Only good for 180 days) Any patient receiving care at [facility] must abide by [place] law. The hierarchy for surrogate decision making is: (a) Patient???s spouse, or civil union partner or common law spouse unless there is a divorce proceeding, separation agreement, or restraining order limiting that person???s relationship with the patient. (b) Any adult son or daughter of the patient. (c) Either parent of the patient. (d) Any adult brother or sister of the patient. (e) Any adult grandchild of the patient. (f) Any grandparent of the patient. (g) Any adult aunt, uncle, niece, or nephew of the patient. (h) A close friend of the patient. (i) The agent with financial power of litigation attorney or a conservator appointed in accordance with RSA 464-A. (j) The guardian of the patient???s estate. Current Coping/Education/Information Needs: pt/family educated on vendors, supplies needed. Pt has HX of non-compliance with DM per dtr, is worried about pt's ability to manage at home alone. Current Functional Ability: Independent Functional Status Prior to Admission: Independent Prior iADLS: Independent with all iADLs Home Environment: Others in the home: alone. Current Living Arrangements: home/apartment/condo. Accessibility Concerns: . Current DME: none Home Address confirmed as: [address] [place] [address] [address] [place] [address] Social & Family Supports: All names listed below confirmed with patient as current and correct Extended Emergency Contact Information Primary Emergency Contact: Jes Pena [facility] Relation: Mother Secondary Emergency Contact: GABRIEL ROSS Mobile Relation: Friend Current Care Provided by: self Provides Primary Care For: no one Caregiver if needed: child(tono), adult, friend(s), parent(s) Quality of Family relationships: helpful, involved, supportive Community Resources being provided currently: none Behavioral Health History: Substance Use/Abuse confirmed: Social History Tobacco Use Smoking Status Current Every Day Smoker ??? Packs/day: 1.50 ??? Years: 24.00 ??? Pack years: 36.00 ??? Types: Cigarettes Smokeless Tobacco Never Used Tobacco Comment Declines Tobacco cessasion referral at this time. 0 No problems reported 1-2 Low level 3-5 Moderate level 6-8 Substantial level 9- 10 Severe level 0 to 7 points: Low risk 8 to 15 points: Medium risk 16 to 19 points: High risk 20 to 40 points: Addiction likely Other Pertinent/Service Specific Information: n/a Health/Prescription Coverage: Primary Insurance: [employer] Payor: MVP / Plan: MVP [place] / Product Type: *No Product type* / Secondary Insurance: N/A Prescription Coverage: Yes Preferred Pharmacy: [facility] [address] [place] [address] Status: Patient is a : No Primary Care Provider: ELIDA Espinosa [phone] Patient/Caregiver Goals of Treatment: To return home when medically able. Pt's family is agreeable to assist, but would not be able to stay with him for long periods of time. Pt's mother states pt can stay with her which would be closer to the rest of the family, but pt would like to return home. Potential Needs for Transition of Care: home health care, respiratory services, durable medical equipment Agency Referrals: The patient/caregivers were provided with a list of VNA/DME which serve their preferred geographic location and they were educated about their right to choose where referrals are placed. Patient/Caregiver requests referral to [facility], [facility], [facility], and [facility]. Transportation: no concerns Transportation Anticipated: family or friend will provide Concerns to be Addressed: compliance issue, coping/stress Assessment: Patient is admitted to ENT service for Laryngeal CA Plan: home with VNA, tube feed, trach supplies and rena tube vendors. Family/friends to support as able. A member of the Care Management team will continue to monitor progress, follow for continuity of care and assist with transition of care planning. Deborah Sprague MSN, singing telegram performer. Pager #[phone] * Plan of Care - Cristofer Pro RN - 05/01/2021 10:33 PM EDT OUTCOME EVALUATION NOTE: OUTCOME SUMMARY: Pt. AO x4, uses communication board and gestures. AVSS on heated trach collar at 30%, 35L except for SBP 170, team aware and ordered PRN labetalol. Suctioned tracheal secretions prn, changed dried dressing on neck. B/L CHERIE draining serosanguinous output. Oral care done. C/O moderate to severe incisional pain; prn oxycodone given x3 to moderate effect. Tolerating feeds. Up to chair from 0400H to 0600H. Slept well. Will continue to monitor. PLAN MOVING FORWARD: Maintain safety Discharge Planning INDIVIDUALIZED FALL PREVENTION INTERVENTIONS: Patient-specific fall risk factors per assessment: Hospital environment Assistance: 1 assist Supervision: Hands on Surveillance: Bed locked in low position, call biancih within reach, purposeful hourly rounding, clutter free environment, bed/chair alarm on Patient-specific fall prevention interventions for sensory deficits provided: N/A CPG GOAL OUTCOME EVALUATION: Continue care plan as documented. * Consult Note - Milagros Roy APRN - 04/30/2021 8:37 AM EDT Diabetes Management Team Inpatient Consult Date of Consultation: 04/30/2021 Consult Requested by: Surgery Reason for Consultation: Reggie Luan Pena Sr. is a 50 y.o. male with PMH significant for T2DM who was admitted on 04/29/2021 currently being treated for status post laryngectomy. We are being consulted to assist with diabetes management and to provide a review of supervisor intermediates diabetes care. Diabetes History: Reggie Pena Sr. has had diabetes about 7 years Current outpatient diabetes regimen: Diabetes Provider: PCP Medications: Metformin 1000 mg twice daily, glipizide 10mg twice daily Monitoring is only done when patient feels off Most recent HA1c was ordered Typical diet is: Regular diet. Pt eats when hungry. Typical exercise regimen is none Trouble with hypoglycemia no Current Weight 163.3 kg Diabetes Complications Status: Eyes: None Kidneys: None Sensory: None Autonomic: None Cardiovascular : None Current Hospital Diabetes Care: Medications: Lispro 1:20>140 correction scale q 4 hrs Monitoring: q 4 hrs Diet: NPO ROS: deferred PMH Past Medical History: Diagnosis Date ??? Diabetes mellitus ??? Obesity ??? Panniculitis Current Hospital Medications: ??? insulin lispro 1-6 Units Subcutaneous Q4H [place] ??? enoxaparin 40 mg Subcutaneous 2 times per day ??? magnesium oxide 400 mg Per NG tube BID ??? ampicillin-sulbactam 3 g Intravenous Q8H ??? docusate sodium 100 mg Oral BID ??? sennosides 17.6 mg Oral BID ??? pantothenic Ac-Min Oil-Pet,Hyd 1 each Topical (Top) BID ??? sodium chloride 0.9 % (flush) 5 mL Intravenous BID ??? famotidine 20 mg Intravenous 2 times per day ??? acetaminophen 650 mg Per NG tube Q4H [place] PRN: lidocaine-EPINEPHrine, ondansetron, polyethylene glycoL (MIRALAX) oral powder, sodium chloride 0.9 % (flush), lidocaine, glucose 40% oral geL OR dextrose 10% OR glucagon, oxyCODONE, HYDROmorphone Allergy: No Known Allergies Social history: Social History Tobacco Use ??? Smoking status: Current Every Day Smoker Packs/day: 1.50 Years: 24.00 Pack years: 36.00 Types: Cigarettes ??? Smokeless tobacco: Never Used ??? Tobacco comment: Declines Tobacco cessasion referral at this time. Vaping Use ??? Vaping Use: Never used Substance Use Topics ??? Alcohol use: No Alcohol/week: 0.0 standard drinks Comment: rare alcohol ??? Drug use: No Family history: Family History Problem Relation Age of Onset ??? Coronary Artery Disease Other ??? Diabetes Other ??? Cancer Other Vitals Last value Range last 24 hrs Temperature Temp: 36.7 ??C (98.06 ??F) Temp: [36.2 ??C (97.2 ??F)-36.8 ??C (98.24 ??F)] Heart Rate Heart Rate: 92 Heart Rate: [69-114] Blood Pressure BP: 155/88 BP: (129-167)/(75-99) Respiratory Rate Resp: (!) 37 Resp: [7-37] SpO2 SpO2: 94 % SpO2: [91 %-100 %] Physical Exam: deferred Labs: Lab Results Component Value Date BUN 18 04/30/2021 CREATININE 0.69 (L) 04/30/2021 GLUCOSE 265 (H) 04/30/2021 ESTGFR 112 04/30/2021 Lab Results Component Value Date HA1C 9.7 (H) 02/26/2014 No results found for: MICROALBUR No results found for: CHLPL No results found for: HDL No results found for: LDLCHOL No results found for: TRIG No results found for: CHOLHDL Assessment: Patient is a 50 y.o. years old male with PMH significant for DM who was admitted on 04/29/2021 for status post laryngectomy. Diabetes suboptimally controlled and currently complicated by elevated glucose levels. Currently with variability of blood glucose levels while hospitalized requiring adjustment of insulin regimen and DM medications. Pt is new to insulin. Calculated weight based basal dosing is 33 units. Pt received 18 units in 24 hour period and glucose still above 150mg/dl. Due to patient being new to insulin , recommend 15 units of lantus to be given this morning. Weight based calculated TDD is 65 units. Using rule of 500 and 1500 respectively, gives a carb ratio of 8 and a Correction scale of 23 Continuous Tube feed being added to regimen. Recommend 1:16 carb ratio Plan: 1. Lantus 15 units qd 2. Lispro custom correction scale for BG 1:20 >140 3. Meal-associated Lispro 1unit: 10 gm carb ratio for each meal 4. For Peptamen 1.5 tube feed - 188 grams of carbohydrate per 1000 cc HOLD if tube feed not running HOLD if BG less than 70 Based on 1:16 I:C ratio TO COVER THE NEXT 4 HOURS OF TUBE FEEDS 10 -19ml per hour give 0 units every 4 hours 20-39 ml per hour give 1 units every 4 hours 40-55 ml per hour give 2 units every 4 hours If greater than 55ml per hour or change in tube feed call for new orders. 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 Monitoring - continue BG tid ac & hs Diet - low fat/low carb diet Exercise - weight-bearing exercise 30 min/day, as tolerated Thank you for allowing us to provide care for your patient Milagros Roy APRN [facility] [place] Management Pager [phone] minutes of this 80 minute visit was spent with the patient in counseling on diabetes and treatment plan, reviewing all glucose and insulin data as well as relevant laboratory results with the patient, and coordination of care on the inpatient unit * Brief Op Note - Tomy Tipton MD - 04/29/2021 8:16 PM EDT Brief Operative Note Patient Name: Reggie Pena . 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 diagnosis: supraglottic/hypopharyngeal cancer Procedure(s) (LRB): @LARYNGECTOMY, PARTIAL, HORIZONTAL (WRVU 27.57) (Bilateral) @CERVICAL LYMPHADENECTOMY (MODIFIED RADICAL NECK DISSECTION) (WRVU 23.95) (Bilateral) PHARYNGECTOMY, LIMITED (WRVU 19.13) (N/A) FLAP, MYOCUTANEOUS OR FASCIOCUTANEOUS, TRUNK (WRVU 19.86) (N/A) ENDOSCOPY, UPPER GI, DIAGNOSTIC, WITH OR WITHOUT SPECIMENS (N/A) LARYNGOSCOPY, MICROSCOPE, WITH BIOPSY (WRVU 3.55) (N/A) Anesthesia: General Findings: Bulky exophytic supraglottic tumor with extension in the left pyriform sinus and left lateral pharynx with extension to the inferior portion of the left tonsil. Bilateral IIA-IV neck dissections, level dissection, left hemithryoidectomy, and total laryngectomy/partial pharyngectomy , and left tonsillectomy performed. Hand sewn primary T closure. 6LGT placed at the conclusion of the case. Primary TEP performed with placement of 16fr NGT. Complications: None Estimated Blood Loss: 150 mL* No values recorded between 04/29/2021 11:40 AM and 04/29/2021 8:12 PM * Specimens removed during surgery: Intra-Procedure Orders (From admission, onward) Start Ordered 04/29/211844 Specimen to Pathology (Multiple Specimen to Pathology requests panel ) ONE TIME Question Answer Comment Clinical History and Diagnosis: supraglottic/hypopharyngeal cancer Specimen Source: FINAL RIGHT SUPERIOR PHARYNX Specimen Type: excision Time specimen removed from patient: 6:43 PM Number of tissue samples (in container) 1 04/29/21 1844 04/29/211844 Specimen to Pathology (Multiple Specimen to Pathology requests panel ) ONE TIME Question Answer Comment Clinical History and Diagnosis: supraglottic/hypopharyngeal cancer Specimen Source: LEFT TONSIL STITCH = SUPERIOR Specimen Type: excision Time specimen removed from patient: 6:43 PM Number of tissue samples (in container) 1 04/29/21 1844 04/29/211834 Specimen to Pathology (Multiple Specimen to Pathology requests panel ) ONE TIME Question Answer Comment Clinical History and Diagnosis: supraglottic/hypopharyngeal cancer Specimen Source: FINAL SUPERIOR LEFT LATERAL PHARYNX MARGIN Specimen Type: excision Time specimen removed from patient: 6:31 PM Number of tissue samples (in container) 1 04/29/21 1836 04/29/211834 Specimen to Pathology (Multiple Specimen to Pathology requests panel ) ONE TIME Question Answer Comment Clinical History and Diagnosis: supraglottic/hypopharyngeal cancer Specimen Source: FINAL SUPERIOR PHARYNX MARGIN Specimen Type: excision Time specimen removed from patient: 6:32 PM Number of tissue samples (in container) 1 04/29/21 1836 04/29/211834 Specimen to Pathology (Multiple Specimen to Pathology requests panel ) ONE TIME Question Answer Comment Clinical History and Diagnosis: supraglottic/hypopharyngeal cancer Specimen Source: FINAL LEFT LATERAL TONGUE BASE Specimen Type: excision Time specimen removed from patient: 6:33 PM Number of tissue samples (in container) 1 04/29/21 1836 04/29/21 1835 Specimen to Pathology (Multiple Specimen to Pathology requests panel ) ONE TIME Question Answer Comment Clinical History and Diagnosis: supraglottic/hypopharyngeal cancer Specimen Source: FINAL LEFT MEDIAL TONGUE BASE Specimen Type: excision Time specimen removed from patient: 6:34 PM Number of tissue samples (in container) 1 04/29/21 1836 04/29/21 1835 Specimen to Pathology (Multiple Specimen to Pathology requests panel ) ONE TIME Question Answer Comment Clinical History and Diagnosis: supraglottic/hypopharyngeal cancer Specimen Source: FINAL RIGHT TONGUE BASE Specimen Type: excision Time specimen removed from patient: 6:35 PM Number of tissue samples (in container) 1 04/29/21 1836 04/29/21 1820 Specimen to Pathology (Multiple Specimen to Pathology requests panel ) ONE TIME Question Answer Comment Clinical History and Diagnosis: supraglottic/hypopharyngeal cancer Specimen Source: TOTAL LARYNGECTOMY, PARTIAL PHARYNGECTOMY AND LEFT PATY THYROID Specimen Type: excision Time specimen removed from patient: 6:19 PM Number of tissue samples (in container) 1 04/29/21 1819 04/29/21 1600 Specimen to Pathology (Multiple Specimen to Pathology requests panel ) ONE TIME Question Answer Comment Clinical History and Diagnosis: supraglottic/hypopharyngeal cancer Specimen Source: MIDLINE NECK DISSECTION LEVEL 6 Specimen Type: excision Time specimen removed from patient: 3:54 PM Number of tissue samples (in container) 1 04/29/21 1557 04/29/21 1550 Specimen to Pathology (Multiple Specimen to Pathology requests panel ) ONE TIME Question Answer Comment Clinical History and Diagnosis: supraglottic/hypopharyngeal cancer Specimen Source: LEFT NECK DISSECTION LEVEL 4 Specimen Type: excision Time specimen removed from patient: 3:44 PM Number of tissue samples (in container) 1 04/29/21 1548 04/29/21 1545 Specimen to Pathology (Multiple Specimen to Pathology requests panel ) ONE TIME Question Answer Comment Clinical History and Diagnosis: supraglottic/hypopharyngeal cancer Specimen Source: LEFT NECK DISSECTION LEVEL 2B Specimen Type: excision Time specimen removed from patient: 3:42 PM Number of tissue samples (in container) 1 04/29/21 1542 04/29/21 1540 Specimen to Pathology ONE TIME Question Answer Comment Clinical History and Diagnosis: supraglottic/hypopharyngeal cancer Specimen Source: LEFT NECK DISSECTION LEVEL 3 Specimen Type: excision Time specimen removed from patient: 3:40 PM Number of tissue samples (in container) 1 04/29/21 1540 04/29/21 1535 Specimen to Pathology (Multiple Specimen to Pathology requests panel ) ONE TIME Question Answer Comment Clinical History and Diagnosis: supraglottic/hypopharyngeal cancer Specimen Source: LEFT NECK DISSECTION 2A Specimen Type: excision Time specimen removed from patient: 3:33 PM Number of tissue samples (in container) 1 04/29/21 1534 04/29/21 1445 Specimen to Pathology ONE TIME Question Answer Comment Clinical History and Diagnosis: supraglottic/hypopharyngeal cancer Specimen Source: RIGHT neck 2B Specimen Type: excision Time specimen removed from patient: 2:40 PM Number of tissue samples (in container) 1 04/29/21 1440 04/29/21 1445 Pathology Order Update ONE TIME Question Answer Comment Additional information: Additional Info Enter requested changes: RIGHT neck level 4 eD-H Order Id number [id number] 04/29/21 1444 04/29/21 1440 Specimen to Pathology ONE TIME Question Answer Comment Clinical History and Diagnosis: supraglottic/hypopharyngeal cancer Specimen Source: RIGHT level 4 Specimen Type: excision Time specimen removed from patient: 2:38 PM Number of tissue samples (in container) 1 04/29/21 1439 04/29/21 1350 Specimen to Pathology (Multiple Specimen to Pathology requests panel ) ONE TIME Question Answer Comment Clinical History and Diagnosis: supraglottic/hypopharyngeal cancer Specimen Source: RIGHT neck dissection Level 3 Specimen Type: biopsy Time specimen removed from patient: 1:32 PM Number of tissue samples (in container) 1 04/29/21 1357 04/29/21 1345 Specimen to Pathology (Multiple Specimen to Pathology requests panel ) ONE TIME Question Answer Comment Clinical History and Diagnosis: supraglottic/hypopharyngeal cancer Specimen Source: RIGHT neck dissection, level 2A Specimen Type: biopsy Time specimen removed from patient: 1:13 PM Number of tissue samples (in container) 1 04/29/21 1357 04/29/21 1140 Specimen to Pathology (Multiple Specimen to Pathology requests panel ) ONE TIME Comments: OR# 1, [id number] Question Answer Comment Clinical History and Diagnosis: supraglottic/hypopharyngeal cancer Specimen Source: Inter-arytenoid Specimen Type: biopsy Frozen Section? (click YES and contact Pathology PRIOR to sending) YES, Please perform frozen section Number of tissue samples (in container) 1 Time specimen removed from patient: 11:37 AM 04/29/21 1138 Fluids: Intraprocedure Crystalloid Total Intake Albumin (human) 5% 500.00 mL Lactated Ringers 2400.00 mL lactated ringers infusion 1800.00 mL ampicillin-sulbactam (Unasyn) 3 g vial attach to sodium chloride 0.9% 100 mL Mini-Bag Plus 300.00 mL Total Intake 5000 mL Output Urine Output 240 mL Blood Loss 150 mL Total Output 390 mL Net Net Volume 4610 mL PRBCs: none (See Anesthesia Record/Report for Other Blood Products) Urine Output: 240 mL Drains: CHERIE drain x2 Disposition: awakened from anesthesia, extubated and taken to the recovery room in a stable condition, having suffered no apparent untoward event. Condition: doing well without problems (Please see the Surgical Encounter Summary for any Implant and Specimen details pertinent to this patient.) Surgical Infection Prevention Bundle Used? N/A Tomy Tipton MD PGY-4 [facility] Pager: [phone] * Op Note - Raghav Webb MD - 04/29/2021 11:40 AM EDT [facility] [place] Patient Name: Reggie Pena Sr. : [id number] MR#: [id number] Case Date: 04/29/2021 Surgeon: * Raghav Webb MD - Primary * Nick Tsang MD - Resident Preoperative diagnosis: supraglottic/hypopharyngeal cancer Postoperative diagnosis: supraglottic/hypopharyngeal cancer Procedures: Esophagogastroscopy, diagnostic Findings: - Esophagogastrostomy without transillumination precluding safe PEG placement. Placement of gastrostomy tube via other methods deferred at this time per request from ENT. Anesthesia: General Estimated Blood Loss: 0 c Specimens removed during surgery: None Drains: None Surgical Closure: n/a Disposition: remains in OR with ENT Condition: stable (Please see the Surgical Encounter Summary for any Implant and Specimen details pertinent to this patient.) HPI/Surgical Indications: Reggie Pena Sr. is a 50 y.o. male who presented today for evaluation and possible resection of a laryngeal cancer. General surgery was contacted for gastrostomy placement.He was consented for PEG, open, and lap assisted G tube but ENT requested we only attempt PEG and not open or lap assisted at this time. The patient understood the indicated for and risks of the procedure and was agreeable. Procedure Description: After previous time out and after ENT performed their initial portion of the procedure, confirmation of correct patient and this portion of the procedure was confirmed. A endoscope was inserted into the esophagus with guidance from ENT visualization. The esophagus appeared normal. The stomach was distended with air. The stomach appeared normal. At a spot in the left upper quadrant there was good 1:1 ballottement but transillumination was unable to be achieved even with reverse Trendelenburg repositioning. As we could not transilluminate, the procedure was aborted and the endoscope was removedafter desufflating the stomach. Gastrostomy tube placement will be attempted via other approach in the future whenever ENT would like to proceed. Surgical Infection Prevention Bundle Used? N/A Attestation: Case Date: 04/29/2021 I was present and I participated during the entire procedure (does not need to include opening and closing). Raghav Webb MD 04/29/2021 * Op Note - Mat Casper MD - 04/29/2021 11:40 AM EDT [facility] [place] Patient Name: Reggie Pena Sr. : [id number] MR#: [id number] Case Date: 04/29/2021 Surgeon: Surgeon(s) and Role: * Mat Casper MD - Primary * Samreen Moreno MD - Resident * Tomy Tipton MD - Resident Preop diagnosis: Supraglottic carcinoma Postop diagnosis: Supraglottic carcinoma Procedure: 1. Direct laryngoscopy with biopsy 2. Bilateral modified radical neck dissection (levels II-IV) 3. Central neck dissection (level ) 4. Left paty-thyroidectomy 5. Total laryngectomy 6. 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 Findings: Bulky exophytic supraglottic tumor with extension in the left pyriform sinus and left lateral pharynx with extension to the inferior portion of the left tonsil. Bilateral IIA-IV neck dissections, level dissection, left hemithryoidectomy, and total laryngectomy/partial pharyngectomy , and left tonsillectomy performed. Hand sewn primary T closure. 6LGT placed at the conclusion of the case. Primary TEP performed with placement of 16fr NGT. EBL: 150 cc Procedure description: The patient was transported to the OR where he was correctly identified and properly positioned on the OR table. The patient was then turned 180 degrees to ENT and a time out was performed. General anesthesia was then induced and an apneic look laryngoscopy was performed. Direct Laryngosocpy The Jennifer laryngoscope was inserted deeply into the arytenoids were visualized in the partially withdrawn until the epiglottis was elevated. Using a long Segundo telescope with a loaded ET tube the patient's larynx was identified. A large, bulky exophytic tumor originating on the epiglottis was i dentified with extension into the left piriform sinus and down the left aryepiglottic fold on the left arytenoid. The right aryepiglottic fold, arytenoid, and piriform sinus were without visible disease. The interarytenoid space was identified and a biopsy was taken from this region for frozen section analysis. Intubation was attempted using the telescope but it was inadvertently placed of the esophagus. A repeat event was then performed and his airway was secured with a 6.0 endotracheal tube. A hypopharyngeal exposure was then acquired for our general surgery colleagues to attempt a PEG. Please refer to their operative note for further details. Bilateral Neck Dissections Following attempted the PEG the patient was prepped and draped in usual sterile fashion. The planned incision was marked and injected with lidocaine and epinephrine. After allowing sufficient time totake effect a 10 blade was used to incise the skin into the subplatysmal plane. Superior and inferior subplatysmal flaps were raised and then held in place with silk stay sutures. Starting on the right side of the neck Allis clamps were used to grasp the superficial lymphatic tissue and a Bovie wasused to identify the anterior border of the SCM. We broadly identified this border down to the omohyoid. We then began blunt dissection and use of the harmonic scalpel to begin her dissections of levels 2A and 3. The spinal excess air was identified and traced up to the posterior belly of the digastric. We then brought in worked on our dissection plane until the cervical rootlets were identified.We establish this plane all the way down to the omohyoid. We dissected from cervical rootlet cervical rootlet until we reached the spinal accessory nerve the synthetic tissues were dissected off of the anterior border of the trapezius until we reached the internal jugular vein. We then worked inferiorly to mobilize lymphatic tissue by the omohyoid to gain greater access to the internal jugular vein prior to our knife dissection. We performed the same thing superiorly while taking care to test for the marginal mandibular nerve. The nerve was not encountered while mobilizing the lymphatic tissue between the digastric and the internal jugular vein. A 10 blade a long handle was then used to tease the contents of levels 2A and 3 off of the internal jugular vein. Next, using Edgardo scissors estevan defined the major branches of the internal jugular vein and external carotid artery and were able to fully mobilize and remove levels 2A and 3. These were divided sharply and then sent separately for permanent pathology. We then performed a level 4 neck dissection by retracting the omohyoidand grasp the lymphatic contents. The harmonic scalpel was used to remove this tissue while taking care to identify and preserve the thyrocervical trunk. In addition, a level 2B neck dissection was performed by retracting the spinal sensory nerve anteriorly and removing the lymphatic tissue in thisregion with the harmonic scalpel. This was also sent separately for permanent pathology. On the right side of the neck there seem to be visibly enlarged nodes in level 4, but levels 2 through 3 were devoid of obvious metastatic disease. We then performed the same operation on the left side and separately sent levels 2A, 2B, 3, and 4 for pathologic analysis. All cranial nerves and major structureswere identified and preserved. No visible metastatic disease was identified in the left neck. Central Neck Dissection, Total Laryngectomy, Partial Pharyngectomy, Left Paty-Thyroidectomy After completing the bilateral neck dissections we identified the hyoid bone and exposed using monopolar cautery. We then started centrally and released the supra hyoid strap muscles of the hyoid bone and then proceeded laterally. When we are approaching the lateral aspects of the hyoid bone care was taken to identify the hypoglossal nerve and ensure its preservation. The greater cornu were mobilized and skeletonized bilaterally. While working on the left-hand side we encountered tumor extending to the thyrohyoid membrane and had inadvertently entered the mass. With this extension of preepiglottic disease we felt that his candidacy for a partial laryngectomy was no longer possible and elected to proceed with a total laryngectomy. The center lymphatic tissue starting the high bone and progressing down to the thyroid gland was then elevated and removed en bloc and sent for permanent pathology. Next, we went to the inferior aspect of the wound bed and identified the external head of the SCM bilaterally and released it in order to flatten his future stoma site. The infrahyoid strap muscles was then released from their inferior attachments to gain access to the tracheal airway. Next, the thyroid isthmus was identified and divided. The right hemithyroid was then elevated off of the trachea and mobilized laterally. The superior and inferior thyroid pedicles were preserved and no parathyroid tissue was encountered or dissected. We then turned attention to the left hemithyroid. A candidate for a inferior parathyroid was identified but dissected poorly and remained part of the specimen. A candidate right superior parathyroid was identified. The candidate and its pedicle were dissected free of the thyroid gland and mobilized laterally in order to preserve it. The superior and inferior third pedicles were then identified and ligated as they came into the thyroid gland. We then proceeded superiorly to the thyroid cartilage. We identified the posterior aspect of the thyroid cartilage and the insertion of the inferior constrictor muscles. Due to the lack of cartilaginous invasion we incised through the inferior constrictor muscle 1 cm anterior to the posterior margin of the thyroid cartilage and peeled off using a periosteal elevator. The piriform sinus mucosa was also mobilized from the thyroid cartilage bilaterally. The steps were taken bilaterally. While working on theright side care was taken to preserve the right superior thyroid artery and vein given the preservation of the right thyroid lobe. Next, we identified the first and second tracheal rings and planned our tracheotomy at this level. We communicated with anesthesia that we would be entering the airway and ventilation was held. Using a 15 blade a long handle the initial tracheotomy was performed and Metzenbaum scissors were used to extend it laterally while working in a superior direction. The 15 blade was then used to incise through the posterior wall of the trachea while not violating the esophagus. We were then able to sharply identify a dissection plane and mobilize the larynx and trachea superiorly until we arrived at the postcricoid space. We then returned to the hyoid bone and ensured that all superior attachments have been mobilized. Given the extent of disease on the left-hand side we elected to enter the pharynx on the right. Using a baby Wallace a pharyngotomy was made in the right piriform sinus. We then methodically made small cuts extending along the aryepiglottic fold up towards the epiglottis. At the epiglottis we ensured to take a soft tissue margin that extended minimally into the tongue base as this area was effaced with tumor. At this point our lateral pharyngotomygave us a sufficient view of the larynx, but the extension of disease into the left lateral pharynxwas not sufficiently visualized to make oncologic cuts. We elected to then unfold the laryngectomy specimen in a book like fashion from right to the left by extending our mucosal incisions through the postcricoid space and then in an inferior to superior direction as to be coursed up the left piriform sinus. Once we had arrived at the superiormost aspect we took the mucosa up to the inferior tonsillar pole and was able to fully mobilize the laryngectomy and partial pharyngectomy specimen. This was then taken to the back table and assess for margin adequacy. We then elected to take further margins along the tongue base and remove the left tonsil. Stoma Formation and Closure of Pharyngeal Defect Using Hamilton graspers we were able to assess for sufficient mobility of the trachea. Monopolar cautery then used to make an incision through the skin in preparation for the stoma. The trachea was then brought up to the skin margin and half mattress sutures using 3-0 Vicryl were performed starting inferiorly and then marching around in a systematic fashion. After cone bleeding the formation of the stoma we assessed the pharyngeal defect and felt that it was amenable to primary closure. A 12 Pakistani salivary bypass tube was then brought into the room and placed in the surgical field to aid in the closure. Starting at the inferior aspect of the defect 3-0 Vicryl was used to perform a running Co nnell stitch. We carried this up to the junction of the defect and base of tongue. Here a linear closure was no longer possible so we elected to finalize this closure in a T-shaped fashion. Interrupted Марина stitches were performed between the pharyngeal mucosa and the base of tongue. The mucosalclosure was then reinforced with approximation of the constrictor muscles and the suprahyoid strap muscles. A peroxide leak test was then performed and 2 focal areas of bubbles were identified in thelinear portion of our closure. These were reinforced with [id number] sutures. The mobilized sternal heads of the SCM within sutured together the midline over the linear portion of the neopharynx. The neck was then irrigated thoroughly bilaterally and CHERIE drains were placed into the necks bilaterally and secured to the skin with silk suture. The skin was then closed in layered fashion with 3-0Vicryl and skin elysia. At the conclusion of the case the patient was turned back to anesthesia. The patient's emergence from anesthesia was without complication and he was transported to the recovery area where he was doing well at the time of handoff. All counts were correct at the end of the case. Tomy Tipton MD PGY-4 [facility] [place] Pager: [phone] Attestation: Case Date: 04/29/2021 I was present and I participated during the entire procedure (does not need to include opening and closing). MAT CASPER MD 05/06/2021 documented in this encounter Plan of Treatment Upcoming Encounters Date Type Department Care Team (Late st Contact Info) Description 02/02/2024 3:00 PM EST Office Visit Radiation Oncology at [address] [phone] Ag Cruz MD [facility] [place] [address] documented as of this encounter Procedures Procedure Name Priority Date/Time Associated Diagnosis Comments POCT GLUCOSE Routine 05/07/2021 3:46 PM EDT POCT GLUCOSE Routine 05/07/2021 2:16 PM EDT POCT GLUCOSE Routine 05/07/2021 12:05 PM EDT POCT GLUCOSE Routine 05/07/2021 7:48 AM EDT POCT GLUCOSE Routine 05/07/2021 5:32 AM EDT HEMOGRAM Routine 05/07/2021 5:26 AM EDT DIFFERENTIAL, AUTOMATED Routine 05/07/2021 5:26 AM EDT HC VENIPUNCTURE Routine 05/07/2021 5:26 AM EDT POCT GLUCOSE Routine 05/06/2021 11:55 PM EDT POCT GLUCOSE Routine 05/06/2021 8:51 PM EDT XR ABDOMEN 1 VIEW STAT 05/06/2021 5:2 1 PM EDT POCT GLUCOSE Routine 05/06/2021 4:41 PM EDT POCT GLUCOSE Routine 05/06/2021 12:11 PM EDT POCT GLUCOSE Routine 05/06/2021 11:28 AM EDT POCT GLUCOSE Routine 05/06/2021 9:11 AM EDT POCT GLUCOSE Routine 05/06/2021 3:46 AM EDT POCT GLUCOSE Routine 05/05/2021 11:45 PM EDT POCT GLUCOSE Routine 05/05/2021 10:01 PM EDT POCT GLUCOSE Routine 05/05/2021 7:19 PM EDT POCT GLUCOSE Routine 05/05/2021 4:24 PM EDT POCT GLUCOSE Routine 05/05/2021 12:13 PM EDT POCT GLUCOSE Routine 05/05/2021 8:01 AM EDT POCT GLUCOSE Routine 05/05/2021 4:14 AM EDT POCT GLUCOSE Routine 05/04/2021 11:55 PM EDT POCT GLUCOSE Routine 05/04/2021 7:28 PM EDT POCT GLUCOSE Routine 05/04/2021 5:35 PM EDT POCT GLUCOSE Routine 05/04/2021 11:13 AM EDT POCT GLUCOSE Routine 05/04/2021 7:40 AM EDT HC PHOSPHORUS, SERUM Routine 05/04/2021 12:59 AM EDT HC MAGNESIUM, SERUM Routine 05/04/2021 1 2:59 AM EDT HC VENIPUNCTURE Routine 05/04/2021 12:59 AM EDT POCT GLUCOSE Routine 05/03/2021 11:39 PM EDT POCT GLUCOSE Routine 05/03/2021 8:15 PM EDT POCT GLUCOSE Routine 05/03/2021 4:14 PM EDT POCT GLUCOSE Routine 05/03/2021 12:03 PM EDT POCT GLUCOSE Routine 05/03/2021 7:49 AM EDT HC PHOSPHORUS, SERUM Routine 05/03/2021 1:00 AM EDT HC MAGNESIUM, SERUM Routine 05/03/2021 1 :00 AM EDT HC VENIPUNCTURE Routine 05/03/2021 1:00 AM EDT POCT GLUCOSE Routine 05/02/2021 8:03 PM EDT POCT GLUCOSE Routine 05/02/2021 4:09 PM EDT POCT GLUCOSE Routine 05/02/2021 12:36 PM EDT POCT GLUCOSE Routine 05/02/2021 11:33 AM EDT HEMOGRAM Routine 05/02/2021 7:49 AM EDT DIFFERENTIAL, AUTOMATED Routine 05/02/2021 7:49 AM EDT HC CBC,PLT & AUTO DIFF Routine 05/02/2021 7:49 AM EDT HC PHOSPHORUS, SERUM Routine 05/02/2021 7:49 AM EDT HC MAGNESIUM, SERUM Routine 05/02/2021 7 :49 AM EDT HC VENIPUNCTURE Routine 05/02/2021 7:49 AM EDT POCT GLUCOSE Routine 05/02/2021 7:41 AM EDT POCT GLUCOSE Routine 05/02/2021 3:48 AM EDT POCT GLUCOSE Routine 05/01/2021 11:33 PM EDT POCT GLUCOSE Routine 05/01/2021 7:53 PM EDT POCT GLUCOSE Routine 05/01/2021 4:04 PM EDT POCT GLUCOSE Routine 05/01/2021 3:22 PM EDT POCT GLUCOSE Routine 05/01/2021 12:10 PM EDT POCT GLUCOSE Routine 05/01/2021 7:38 AM EDT POCT GLUCOSE Routine 05/01/2021 3:22 AM EDT HEMOGRAM Routine 05/01/2021 12:59 AM EDT DIFFERENTIAL, AUTOMATED Routine 05/01/2021 12:59 AM EDT HC CBC,PLT & AUTO DIFF Routine 05/01/2021 12:59 AM EDT HC PHOSPHORUS, SERUM Routine 05/01/2021 12:59 AM EDT HC MAGNESIUM, SERUM Routine 05/01/2021 1 2:59 AM EDT ALBUMIN LEVEL Routine 05/01/2021 12:59 AM EDT HC VENIPUNCTURE Routine 05/01/2021 12:59 AM EDT POCT GLUCOSE Routine 04/30/2021 11:55 PM EDT POCT GLUCOSE Routine 04/30/2021 7:45 PM EDT POCT GLUCOSE Routine 04/30/2021 4:02 PM EDT POCT GLUCOSE Routine 04/30/2021 11:41 AM EDT POCT GLUCOSE Routine 04/30/2021 8:04 AM EDT POCT GLUCOSE Routine 04/30/2021 6:18 AM EDT POCT GLUCOSE Routine 04/30/2021 3:27 AM EDT POCT GLUCOSE Routine 04/30/2021 1:25 AM EDT HEMOGRAM Routine 04/30/2021 12:56 AM EDT DIFFERENTIAL, AUTOMATED Routine 04/30/2021 12:56 AM EDT HC CBC,PLT & AUTO DIFF Routine 04/30/2021 12:56 AM EDT HC PHOSPHORUS, SERUM Routine 04/30/2021 12:56 AM EDT HC MAGNESIUM, SERUM Routine 04/30/2021 1 2:56 AM EDT HEMOGLOBIN A1C Routine 04/30/2021 12:56 AM EDT HC VENIPUNCTURE Routine 04/30/2021 12:56 AM EDT POCT GLUCOSE Routine 04/29/2021 11:31 PM EDT XR ABDOMEN 1 VIEW Routine 04/29/2021 9:0 7 PM EDT RADICAL RESECTION OF TONSIL,PILLARS,RETROM OLAR TRIGONE,NO CLOSURE Routine 04/29/2021 8:35 PM EDT Laryngeal cancer Dysphagia, unspecified type GLOSSECTOMY,LESS THAN ONE-HALF TONGUE Routine 04/29/2021 8:35 PM EDT Laryngeal cancer Dysphagia, unspecified type PHARYNGOLARYNGECTOMY, NECK DISSECTION, NO RECON Routine 04/29/2021 8:35 PM EDT Laryngeal cancer Dysphagia, unspecified type SPECIMEN TO PATHOLOGY Routine 04/29/2021 6:44 PM EDT SPECIMEN TO PATHOLOGY Routine 04/29/2021 6:44 PM EDT SPECIMEN TO PATHOLOGY Routine 04/29/2021 6:36 PM EDT SPECIMEN TO PATHOLOGY Routine 04/29/2021 6:36 PM EDT SPECIMEN TO PATHOLOGY Routine 04/29/2021 6:36 PM EDT SPECIMEN TO PATHOLOGY Routine 04/29/2021 6:36 PM EDT SPECIMEN TO PATHOLOGY Routine 04/29/2021 6:36 PM EDT SPECIMEN TO PATHOLOGY Routine 04/29/2021 6:20 PM EDT SPECIMEN TO PATHOLOGY Routine 04/29/2021 3:58 PM EDT SPECIMEN TO PATHOLOGY Routine 04/29/2021 3:48 PM EDT SPECIMEN TO PATHOLOGY Routine 04/29/2021 3:43 PM EDT SPECIMEN TO PATHOLOGY Routine 04/29/2021 3:41 PM EDT SPECIMEN TO PATHOLOGY Routine 04/29/2021 3:34 PM EDT BLOOD GAS ARTERIAL POC Routine 04/29/2021 3:05 PM EDT SPECIMEN TO PATHOLOGY Routine 04/29/2021 2:41 PM EDT SPECIMEN TO PATHOLOGY Routine 04/29/2021 2:39 PM EDT SPECIMEN TO PATHOLOGY Routine 04/29/2021 1:57 PM EDT SPECIMEN TO PATHOLOGY Routine 04/29/2021 1:57 PM EDT LARYNGOSCOPY, MICROSCOPE, WITH BIOPSY Routine 04/29/2021 12:46 PM EDT Laryngeal cancer Dysphagia, unspecified type BLOOD GAS ARTERIAL POC Routine 04/29/2021 12:00 PM EDT SURGICAL PATHOLOGY REPORT Routine 04/29/2021 11:38 AM EDT SPECIMEN TO PATHOLOGY STAT 04/29/2021 11:38 AM EDT Laryngoscopy, Dirct, Op Scope, Biopsy ([id number]) Yes 04/29/2021 11:02 AM EDT Laryngeal cancer Dysphagia, unspecified type Upper GI Endoscopy, Diagnostic ([id number]) Yes 04/29/2021 11:02 AM EDT Laryngeal cancer Dysphagia, unspecified type Rad Resec Tonsil/Pillars ([id number]) Yes 04/29/2021 11:02 AM EDT Laryngeal cancer Dysphagia, unspecified type Part Removal Tongue, <1/2 ([id number]) Yes 04/29/2021 11:02 AM EDT Laryngeal cancer Dysphagia, unspecified type Remv Larynx & Pharynx ([id number]) Yes 04/29/2021 11:02 AM EDT Laryngeal cancer Dysphagia, unspecified type RAPID COVID-19 PCR ([facility]) Routine 04/29/2021 9:03 AM EDT POCT GLUCOSE Routine 04/29/2021 8:36 AM EDT TYPE AND SCREEN VALIDITY STAT 04/29/2021 7:49 AM EDT ABORH RECHECK STATUS STAT 04/29/2021 7:49 AM EDT HC VENIPUNCTURE STAT 04/29/2021 7:49 AM EDT ABO/RH TYPING STAT 04/29/2021 7:49 AM EDT ANTIBODY SCREEN STAT 04/29/2021 7:49 AM EDT documented in this encounter Results * (ABNORMAL) POCT Glucose (05/07/2021 3:46 PM EDT) Glucose, POC 226(H) 65 - 199 mg/dL [facility] Comment: Supplemental ranges: <140 mg/dL before meals <180 mg/dL all other times of the day Blood 05/07/2021 3:46 PM EDT 05/07/2021 3:46 PM EDT Mat Casper MD POINT OF CARE TEST ORDERABLES Performing Organization Address City/[facility] Co de Phone Number [facility] [place] [address] * (ABNORMAL) POCT Glucose (05/07/2021 2:16 PM EDT) Glucose, POC 234(H) 65 - 199 mg/dL [facility] Comment: Supplemental ranges: <140 mg/dL before meals <180 mg/dL all other times of the day Blood 05/07/2021 2:16 PM EDT 05/07/2021 2:16 PM EDT Mat Casper MD POINT OF CARE TEST ORDERABLES Performing Organization Address [facility] Co de Phone Number [facility] [place] [address] * (ABNORMAL) POCT Glucose (05/07/2021 12:05 PM EDT) Glucose, POC 249(H) 65 - 199 mg/dL [facility] Comment: Supplemental ranges: <140 mg/dL before meals <180 mg/dL all other times of the day Blood 05/07/2021 12:0 5 PM EDT 05/07/2021 12:05 PM EDT Mat Casper MD POINT OF CARE TEST ORDERABLES Performing Organization Address [facility] Co de Phone Number [facility] [place] [address] * POCT Glucose (05/07/2021 7:48 AM EDT) Glucose, POC 190 65 - 199 mg/dL [facility] Comment: Supplemental ranges: <140 mg/dL before meals <180 mg/dL all other times of the day Blood 05/07/2021 7:48 AM EDT 05/07/2021 7:48 AM EDT Mat Casper MD POINT OF CARE TEST ORDERABLES [facility] [place] [address] * POCT Glucose (05/07/2021 5:32 AM EDT) Glucose, POC 167 65 - 199 mg/dL [facility] Comment: Supplemental ranges: <140 mg/dL before meals <180 mg/dL all other times of the day Blood 05/07/2021 5:32 AM EDT 05/07/2021 5:32 AM EDT Mat Casper MD POINT OF CARE TEST ORDERABLES Performing Organization Address City/[facility] Co de Phone Number [facility] [place] [address] * (ABNORMAL) Differential, Automated (05/07/2021 5:26 AM EDT) Neutrophil % 68.4 % [facility] Neutrophil Absolute 6.43(H) 1.70 - 6.10 x10(3)/mc L [facility] Lymph % 16.8 % [facility] Lymphocytes Abs 1.6 0.9 - 3.2 x10(3)/mc L [facility] Monocyte % 7.8 % [facility] Monocyte Abs 0.7 0.3 - 0.9 x10(3)/mc L [facility] Eos % 4.7 % [facility] Eosinophils Abs 0.4 0.0 - 0.4 x10(3)/mc L [facility] Basophil % 0.9 % [facility] Baso Absolute 0.1 0.0 - 0.1 x10(3)/mc L [facility] Immature Gran % 1.40 % [facility] Comment: Immature granulocytes(IG's)percentage and absolute count will include metamyelocytes, myelocytes, and promyelocytes. Blood smears from CBCs yielding IG's will be scanned manually for concordance. If this scan disagrees with the automated IG or if promyelocytes are noted, a manual differential will be performed. Immature Gran Absolute 0.13(H) 0.00 - 0.04 x10(3)/ L [facility] Blood 05/07/2021 5:26 AM EDT 05/07/2021 6:02 AM EDT Narrative Resulting Agency Comment Spec In Lab Stephy Bianchi MD HEMATOLOGY ORDERABLE S [facility] [place] [address] * (ABNORMAL) Hemogram (05/07/2021 5:26 AM EDT) White Blood Cell 9.4 4.0 - 9.5 x10(3)/ L [facility] Red Blood Cell 4.32(L) 4.58 - 5.54 x10(6)/mc L [facility] Hemoglobin 12.1(L) 13.7 - 16.5 g/dL [facility] Hematocrit 35.9(L) 40.5 - 48.5 % [facility] Mean Cell Volume 83.1 82.9 - 93.1 fL [facility] Mean Cell Hemoglobin 28.0 27.5 - 32.1 pg [facility] Mean Cell Hemoglobin Concentration 33.7 32.0 - 35.7 g/dL [facility] Platelet 250 145 - 357 x10(3)/mc L [facility] RDW Standard Deviation 42.1 36.0 - 45.0 fL [facility] RDW coefficient of variation 13.9(H) 11.4 - 13.8 % [facility] Mean Platelet Volume 8.8 7.6 - 12.9 fL [facility] NRBC% auto 0.0 % [facility] NRBC Absolute 0.000 0.000 - 0.000 x10(3)/mc L [facility] Blood 05/07/2021 5:26 AM EDT 05/07/2021 6:02 AM EDT Narrative Resulting Agency Comment Spec In Lab Stephy Bianchi MD HEMATOLOGY ORDERABLE S [facility] [place] [address] * POCT Glucose (05/06/2021 11:55 PM EDT) Glucose, POC 166 65 - 199 mg/dL [facility] Comment: Supplemental ranges: <140 mg/dL before meals <180 mg/dL all other times of the day Blood 05/06/2021 11:5 5 PM EDT 05/06/2021 11:55 PM EDT Mat Casper MD POINT OF CARE TEST ORDERABLES Performing Organization Address [facility]/ZIP Co de Phone Number [facility] [place] [address] * (ABNORMAL) POCT Glucose (05/06/2021 8:51 PM EDT) Glucose, POC 205(H) 65 - 199 mg/dL [facility] Comment: Supplemental ranges: <140 mg/dL before meals <180 mg/dL all other times of the day Blood 05/06/2021 8:51 PM EDT 05/06/2021 8:51 PM EDT Mat Casper MD POINT OF CARE TEST ORDERABLES Performing Organization Address City/[facility]/ZIP Co de Phone Number [facility] [place] [address] * XR Abdomen 1 view (Generic) (05/06/2021 5:21 PM EDT) Anatomical Region Laterality Modality Abdomen N/A Digital Radiogra phy Impressions 05/06/2021 5:29 PM EDT NG tube terminates within the stomach. Thank you for letting us participate in the care of this patient. ??If you are a health care provider and have any questions regarding this report, please contact the number below. ??For patients who have questions please contact the health health care coach that requested your imaging first. ? Electronically signed by: Rosalina Carroll MD, [facility] ([phone]), at 05/06/2021 5:29 PM Narrative 05/06/2021 5:29 PM EDT EXAMINATION: XR ABDOMEN 1 VIEW (GENERIC) CLINICAL HISTORY: NGT placement (passes through the stoma) TECHNIQUE: AP abdomen COMPARISON: Abdomen radiograph, April 29, 2021 FINDINGS: NG tube extends below the diaphragm with tip within the body of the stomach. A small amount of air within normal caliber large bowel, otherwise paucity of small bowel bowel gas in the visualized upper abdomen. Mild hazy opacities, likely atelectasis in the visualized lung bases. Procedure Note Rosalina Carroll MD - 05/06/2021 EXAMINATION: XR ABDOMEN 1 VIEW (GENERIC) CLINICAL HISTORY: NGT placement (passes through the stoma) TECHNIQUE: AP abdomen COMPARISON: Abdomen radiograph, April 29, 2021 FINDINGS: NG tube extends below the diaphragm with tip within the body of thestomach. A small amount of air within normal caliber large bowel, otherwise paucityof small bowel bowel gas in the visualized upper abdomen. Mild hazyopacities, likely atelectasis in the visualized lung bases. IMPRESSION NG tube terminates within the stomach. Thank you for letting us participate in the care of this patient. If youare a health care provider and have any questions regarding this report,please contact the number below. For patients who have questions please contactthe health health care coach that requested your imaging first. Electronically signed by: Rosalina Carroll MD, [facility]([phone]), at 05/06/2021 5:29 PM Mat Casper MD IMG DX ORDERABLES * (ABNORMAL) POCT Glucose (05/06/2021 4:41 PM EDT) Glucose, POC 213(H) 65 - 199 mg/dL [facility] Comment: Supplemental ranges: <140 mg/dL before meals <180 mg/dL all other times of the day Blood 05/06/2021 4:41 PM EDT 05/06/2021 4:41 PM EDT Mat Casper MD POINT OF CARE TEST ORDERABLES Performing Organization Address [facility]/ZIP Co de Phone Number [facility] [place] [address] * POCT Glucose (05/06/2021 12:11 PM EDT) Glucose, POC 196 65 - 199 mg/dL [facility] Comment: Supplemental ranges: <140 mg/dL before meals <180 mg/dL all other times of the day Blood 05/06/2021 12:1 1 PM EDT 05/06/2021 12:11 PM EDT Mat Casper MD POINT OF CARE TEST ORDERABLES [facility] [place] [address] * POCT Glucose (05/06/2021 11:28 AM EDT) Glucose, POC 175 65 - 199 mg/dL [facility] Comment: Supplemental ranges: <140 mg/dL before meals <180 mg/dL all other times of the day Blood 05/06/2021 11:2 8 AM EDT 05/06/2021 11:28 AM EDT Mat Casper MD POINT OF CARE TEST ORDERABLES Performing Organization Address City/[facility] Co de Phone Number [facility] [place] [address] * POCT Glucose (05/06/2021 9:11 AM EDT) Glucose, POC 167 65 - 199 mg/dL [facility] Comment: Supplemental ranges: <140 mg/dL before meals <180 mg/dL all other times of the day Blood 05/06/2021 9:11 AM EDT 05/06/2021 9:11 AM EDT Mat Casper MD POINT OF CARE TEST ORDERABLES Performing Organization Address [facility] Co de Phone Number [facility] [place] [address] * POCT Glucose (05/06/2021 3:46 AM EDT) Glucose, POC 187 65 - 199 mg/dL [facility] Comment: Supplemental ranges: <140 mg/dL before meals <180 mg/dL all other times of the day Blood 05/06/2021 3:46 AM EDT 05/06/2021 3:46 AM EDT Mat Casper MD POINT OF CARE TEST ORDERABLES Performing Organization Address City/[facility] Co de Phone Number [facility] [place] [address] * POCT Glucose (05/05/2021 11:45 PM EDT) Glucose, POC 198 65 - 199 mg/dL [facility] Comment: Supplemental ranges: <140 mg/dL before meals <180 mg/dL all other times of the day Blood 05/05/2021 11:4 5 PM EDT 05/05/2021 11:45 PM EDT Mat Casper MD POINT OF CARE TEST ORDERABLES Performing Organization Address City/[facility]/ZIP Co de Phone Number [facility] [place] [address] * POCT Glucose (05/05/2021 10:01 PM EDT) Glucose, POC 195 65 - 199 mg/dL [facility] Comment: Supplemental ranges: <140 mg/dL before meals <180 mg/dL all other times of the day Blood 05/05/2021 10:0 1 PM EDT 05/05/2021 10:01 PM EDT Mat Casper MD POINT OF CARE TEST ORDERABLES Performing Organization Address City/[facility]/ZIP Co de Phone Number [facility] [place] [address] * (ABNORMAL) POCT Glucose (05/05/2021 7:19 PM EDT) Glucose, POC 256(H) 65 - 199 mg/dL [facility] Comment: Supplemental ranges: <140 mg/dL before meals <180 mg/dL all other times of the day Blood 05/05/2021 7:19 PM EDT 05/05/2021 7:19 PM EDT Mat Casper MD POINT OF CARE TEST ORDERABLES Performing Organization Address City/[facility]/ZIP Co de Phone Number [facility] [place] [address] * POCT Glucose (05/05/2021 4:24 PM EDT) Glucose, POC 198 65 - 199 mg/dL [facility] Comment: Supplemental ranges: <140 mg/dL before meals <180 mg/dL all other times of the day Blood 05/05/2021 4:24 PM EDT 05/05/2021 4:24 PM EDT Mat Casper MD POINT OF CARE TEST ORDERABLES Performing Organization Address [facility] Co de Phone Number [facility] [place] [address] * (ABNORMAL) POCT Glucose (05/05/2021 12:13 PM EDT) Glucose, POC 210(H) 65 - 199 mg/dL [facility] Comment: Supplemental ranges: <140 mg/dL before meals <180 mg/dL all other times of the day Blood 05/05/2021 12:1 3 PM EDT 05/05/2021 12:13 PM EDT Mat Casper MD POINT OF CARE TEST ORDERABLES Performing Organization Address [facility] de Phone Number [facility] [place] [address] * POCT Glucose (05/05/2021 8:01 AM EDT) Glucose, POC 134 65 - 199 mg/dL [facility] Comment: Supplemental ranges: <140 mg/dL before meals <180 mg/dL all other times of the day Blood 05/05/2021 8:01 AM EDT 05/05/2021 8:01 AM EDT Mat Casper MD POINT OF CARE TEST ORDERABLES Performing Organization Address [facility] Co de Phone Number [facility] [place] [address] * POCT Glucose (05/05/2021 4:14 AM EDT) Glucose, POC 119 65 - 199 mg/dL [facility] Comment: Supplemental ranges: <140 mg/dL before meals <180 mg/dL all other times of the day Blood 05/05/2021 4:14 AM EDT 05/05/2021 4:14 AM EDT Mat Casper MD POINT OF CARE TEST ORDERABLES Performing Organization Address City/[facility]/ZIP Co de Phone Number [facility] [place] [address] * POCT Glucose (05/04/2021 11:55 PM EDT) Glucose, POC 156 65 - 199 mg/dL [facility] Comment: Supplemental ranges: <140 mg/dL before meals <180 mg/dL all other times of the day Blood 05/04/2021 11:5 5 PM EDT 05/04/2021 11:55 PM EDT Mat Casper MD POINT OF CARE TEST ORDERABLES Performing Organization Address City/[facility]/ZIP Co de Phone Number [facility] [place] [address] * (ABNORMAL) POCT Glucose (05/04/2021 7:28 PM EDT) Glucose, POC 212(H) 65 - 199 mg/dL [facility] Comment: Supplemental ranges: <140 mg/dL before meals <180 mg/dL all other times of the day Blood 05/04/2021 7:28 PM EDT 05/04/2021 7:28 PM EDT Mat Casper MD POINT OF CARE TEST ORDERABLES Performing Organization Address City/[facility]/ZIP Co de Phone Number [facility] [place] [address] * POCT Glucose (05/04/2021 5:35 PM EDT) Glucose, POC 175 65 - 199 mg/dL [facility] Comment: Supplemental ranges: <140 mg/dL before meals <180 mg/dL all other times of the day Blood 05/04/2021 5:35 PM EDT 05/04/2021 5:35 PM EDT Mat Casper MD POINT OF CARE TEST ORDERABLES Performing Organization Address [facility] de Phone Number [facility] [place] [address] * POCT Glucose (05/04/2021 11:13 AM EDT) Glucose, POC 178 65 - 199 mg/dL [facility] Comment: Supplemental ranges: <140 mg/dL before meals <180 mg/dL all other times of the day Blood 05/04/2021 11:1 3 AM EDT 05/04/2021 11:13 AM EDT Mat Casper MD POINT OF CARE TEST ORDERABLES Performing Organization Address [facility] Phone Number [facility] [place] [address] * POCT Glucose (05/04/2021 7:40 AM EDT) Glucose, POC 131 65 - 199 mg/dL [facility] Comment: Supplemental ranges: <140 mg/dL before meals <180 mg/dL all other times of the day Blood 05/04/2021 7:40 AM EDT 05/04/2021 7:40 AM EDT Mat Casper MD POINT OF CARE TEST ORDERABLES Performing Organization Address [facility] de Phone Number [facility] [place] [address] * Phosphorus (05/04/2021 12:59 AM EDT) Phosphorus 3.0 2.5 - 4.5 mg/dL [facility] Blood 05/04/2021 12:5 9 AM EDT 05/04/2021 1:17 AM EDT Narrative Resulting Agency Comment Spec In Lab Mat Casper MD CHEMISTRY ORDERABL ES Performing Organization Address [facility]/ZIP Co de Phone Number [facility] [place] [address] * Magnesium (05/04/2021 12:59 AM EDT) Magnesium 0.86 0.69 - 1.07 mmol/L [facility] Blood 05/04/2021 12:5 9 AM EDT 05/04/2021 1:17 AM EDT Narrative Resulting Agency Comment Spec In Lab Mat Casper MD CHEMISTRY ORDERABL ES [facility] [place] [address] * (ABNORMAL) Basic Metabolic Panel (non-fasting) (05/04/2021 12:59 AM EDT) Glucose 127 65 - 199 mg/dL [facility] Comment:Diabetes: >=200 mg/d L plus symptoms Blood Urea Nitrogen 15 10 - 20 mg/dL [facility] Creatinine 0.49(L) 0.80 - 1.50 mg/dL [facility] Sodium 136 135 - 145 mmol/L [facility] Potassium 3.6 3.5 - 5.0 mmol/L [facility] Comment: Please note: ??Patients with WBC >100,000 may have falsely elevated Potassium levels. ??For accurate Potassium quantification in these patients send serum separator tube (gold top) for subsequent determinations. ??Contact the Clinical Chemistry Laboratory if there are any questions. Chloride 98 98 - 107 mmol/L [facility] Carbon Dioxide 32(H) 22 - 31 mmol/L [facility] Anion Gap 6 5 - 15 mmol/L [facility] Calcium 8.1(L) 8.5 - 10.5 mg/dL [facility] Est Glomerular Filtration Rate 129 >=60 mL/min/1. 73 m?? [facility] Comment: This patient? s estimated glomerular filtration rate (eGFR) is between 129 mL/min/1.73 m2 (patients with less muscle mass per kg body weight) and 150 mL/min/1.73 m2 (patients with more muscle mass per kg body weight) as determined by the CKD-EPI equation. Assessment of eGFR is not appropriate when creatinine concentrations are rapidly changing. For clinical decisions where creatinine clearance will affect therapy, a 24-hour urine creatinine clearance may be advised. Assignment of CKD stage 1 - 5 for patients with an eGFR near the transition point between stages may be based on clinical assessment of muscle mass and symptoms in addition to eGFR. Blood 05/04/2021 12:5 9 AM EDT 05/04/2021 1:17 AM EDT Narrative Resulting Agency Comment Spec In Lab Mat Casper MD CHEMISTRY ORDERABL ES Performing Organization Address [facility]/ZIP Co de Phone Number [facility] [place] [address] * POCT Glucose (05/03/2021 11:39 PM EDT) Glucose, POC 182 65 - 199 mg/dL [facility] Comment: Supplemental ranges: <140 mg/dL before meals <180 mg/dL all other times of the day Blood 05/03/2021 11:3 9 PM EDT 05/03/2021 11:39 PM EDT Mat Casper MD POINT OF CARE TEST ORDERABLES Performing Organization Address City/[facility]/ZIP Co de Phone Number [facility] [place] [address] * (ABNORMAL) POCT Glucose (05/03/2021 8:15 PM EDT) Glucose, POC 240(H) 65 - 199 mg/dL [facility] Comment: Supplemental ranges: <140 mg/dL before meals <180 mg/dL all other times of the day Blood 05/03/2021 8:15 PM EDT 05/03/2021 8:15 PM EDT Mat Casper MD POINT OF CARE TEST ORDERABLES Performing Organization Address City/[facility]/ZIP Co de Phone Number [facility] [place] [address] * (ABNORMAL) POCT Glucose (05/03/2021 4:14 PM EDT) Glucose, POC 201(H) 65 - 199 mg/dL [facility] Comment: Supplemental ranges: <140 mg/dL before meals <180 mg/dL all other times of the day Blood 05/03/2021 4:14 PM EDT 05/03/2021 4:14 PM EDT Mat Casper MD POINT OF CARE TEST ORDERABLES Performing Organization Address [facility] Co de Phone Number [facility] [place] [address] * POCT Glucose (05/03/2021 12:03 PM EDT) Glucose, POC 197 65 - 199 mg/dL [facility] Comment: Supplemental ranges: <140 mg/dL before meals <180 mg/dL all other times of the day Blood 05/03/2021 12:0 3 PM EDT 05/03/2021 12:03 PM EDT Mat Casper MD POINT OF CARE TEST ORDERABLES Performing Organization Address City/[facility] Co de Phone Number [facility] [place] [address] * POCT Glucose (05/03/2021 7:49 AM EDT) Glucose, POC 133 65 - 199 mg/dL [facility] Comment: Supplemental ranges: <140 mg/dL before meals <180 mg/dL all other times of the day Blood 05/03/2021 7:49 AM EDT 05/03/2021 7:49 AM EDT Mat Casper MD POINT OF CARE TEST ORDERABLES [facility] [place] [address] * Phosphorus (05/03/2021 1:00 AM EDT) Phosphorus 3.1 2.5 - 4.5 mg/dL [facility] Blood 05/03/2021 1:00 AM EDT 05/03/2021 1:24 AM EDT Narrative Resulting Agency Comment Spec In Lab Mat Casper MD CHEMISTRY ORDERABL ES Performing Organization Address [facility] Co de Phone Number [facility] [place] [address] * Magnesium (05/03/2021 1:00 AM EDT) Magnesium 0.90 0.69 - 1.07 mmol/L [facility] Blood 05/03/2021 1:00 AM EDT 05/03/2021 1:24 AM EDT Narrative Resulting Agency Comment Spec In Lab Mat Casper MD CHEMISTRY ORDERABL ES Performing Organization Address [facility] de Phone Number [facility] [place] [address] * (ABNORMAL) Basic Metabolic Panel (non-fasting) (05/03/2021 1:00 AM EDT) Glucose 138 65 - 199 mg/dL [facility] Comment:Diabetes: >=200 mg/d L plus symptoms Blood Urea Nitrogen 11 10 - 20 mg/dL [facility] Creatinine 0.51(L) 0.80 - 1.50 mg/dL [facility] Sodium 137 135 - 145 mmol/L [facility] Potassium 3.6 3.5 - 5.0 mmol/L [facility] Comment: Please note: ??Patients with WBC >100,000 may have falsely elevated Potassium levels. ??For accurate Potassium quantification in these patients send serum separator tube (gold top) for subsequent determinations. ??Contact the Clinical Chemistry Laboratory if there are any questions. Chloride 100 98 - 107 mmol/L [facility] Carbon Dioxide 31 22 - 31 mmol/L [facility] Anion Gap 6 5 - 15 mmol/L [facility] Calcium 7.8(L) 8.5 - 10.5 mg/dL [facility] Est Glomerular Filtration Rate 127 >=60 mL/min/1. 73 m?? [facility] Comment: This patient? s estimated glomerular filtration rate (eGFR) is between 127 mL/min/1.73 m2 (patients with less muscle mass per kg body weight) and 147 mL/min/1.73 m2 (patients with more muscle mass per kg body weight) as determined by the CKD-EPI equation. Assessment of eGFR is not appropriate when creatinine concentrations are rapidly changing. For clinical decisions where creatinine clearance will affect therapy, a 24-hour urine creatinine clearance may be advised. Assignment of CKD stage 1 - 5 for patients with an eGFR near the transition point between stages may be based on clinical assessment of muscle mass and symptoms in addition to eGFR. Blood 05/03/2021 1:00 AM EDT 05/03/2021 1:24 AM EDT Narrative Resulting Agency Comment Spec In Lab Mat Casper MD CHEMISTRY ORDERABL ES Performing Organization Address [facility]/ZIP Co de Phone Number [facility] [place] [address] * POCT Glucose (05/02/2021 8:03 PM EDT) Glucose, POC 195 65 - 199 mg/dL [facility] Comment: Supplemental ranges: <140 mg/dL before meals <180 mg/dL all other times of the day Blood 05/02/2021 8:03 PM EDT 05/02/2021 8:03 PM EDT Mat Casper MD POINT OF CARE TEST ORDERABLES Performing Organization Address City/[facility]/ZIP Co de Phone Number [facility] [place] [address] * POCT Glucose (05/02/2021 4:09 PM EDT) Glucose, POC 195 65 - 199 mg/dL [facility] Comment: Supplemental ranges: <140 mg/dL before meals <180 mg/dL all other times of the day Blood 05/02/2021 4:09 PM EDT 05/02/2021 4:09 PM EDT Mat Casper MD POINT OF CARE TEST ORDERABLES [facility] [place] [address] * POCT Glucose (05/02/2021 12:36 PM EDT) Glucose, POC 175 65 - 199 mg/dL [facility] Comment: Supplemental ranges: <140 mg/dL before meals <180 mg/dL all other times of the day Blood 05/02/2021 12:3 6 PM EDT 05/02/2021 12:36 PM EDT Mat Casper MD POINT OF CARE TEST ORDERABLES [facility] [place] [address] * (ABNORMAL) POCT Glucose (05/02/2021 11:33 AM EDT) Glucose, POC 210(H) 65 - 199 mg/dL [facility] Comment: Supplemental ranges: <140 mg/dL before meals <180 mg/dL all other times of the day Blood 05/02/2021 11:3 3 AM EDT 05/02/2021 11:33 AM EDT Mat Casper MD POINT OF CARE TEST ORDERABLES [facility] [place] [address] * (ABNORMAL) Differential, Automated (05/02/2021 7:49 AM EDT) Pathologist [facility] Neutrophil % 77.8 % [facility] Neutrophil Absolute 7.00(H) 1.70 - 6.10 x10(3)/mc L [facility] Lymph % 11.9 % [facility] Lymphocytes Abs 1.1 0.9 - 3.2 x10(3)/ L [facility] Monocyte % 6.6 % [facility] Monocyte Abs 0.6 0.3 - 0.9 x10(3)/ L [facility] Eos % 2.4 % [facility] Eosinophils Abs 0.2 0.0 - 0.4 x10(3)/[facility] Basophil % 0.6 % [facility] Baso Absolute 0.0 0.0 - 0.1 x10(3)/ L [facility] Immature Gran % 0.70 % [facility] Comment: Immature granulocytes(IG's)percentage and absolute count will include metamyelocytes, myelocytes, and promyelocytes. Blood smears from CBCs yielding IG's will be scanned manually for concordance. If this scan disagrees with the automated IG or if promyelocytes are noted, a manual differential will be performed. Immature Gran Absolute 0.06(H) 0.00 - 0.04 x10(3)/ L [facility] Blood 05/02/2021 7:49 AM EDT 05/02/2021 8:02 AM EDT Narrative Resulting Agency Comment Spec In Lab Samreen Moreno MD HEMATOLOGY ORDERAB LES [facility] [place] [address] * (ABNORMAL) Hemogram (05/02/2021 7:49 AM EDT) [facility] White Blood Cell 9.0 4.0 - 9.5 x10(3)/ L [facility] Red Blood Cell 4.14(L) 4.58 - 5.54 x10(6)/ L [facility] Hemoglobin 11.6(L) 13.7 - 16.5 g/dL [facility] Hematocrit 35.0(L) 40.5 - 48.5 % [facility] Mean Cell Volume 84.5 82.9 - 93.1 fL [facility] Mean Cell Hemoglobin 28.0 27.5 - 32.1 pg [facility] Mean Cell Hemoglobin Concentration 33.1 32.0 - 35.7 g/dL [facility] Platelet 175 145 - 357 x10(3)/[facility] RDW Standard Deviation 42.6 36.0 - 45.0 [facility] RDW coefficient of variation 13.7 11.4 - 13.8 % [facility] Mean Platelet Volume 9.5 7.6 - 12.9 [facility] NRBC% auto 0.0 % [facility] NRBC Absolute 0.000 0.000 - 0.000 x10(3)/[facility] Blood 05/02/2021 7:49 AM EDT 05/02/2021 8:02 AM EDT Narrative Resulting Agency Comment Spec In Lab Samreen Moreno MD HEMATOLOGY ORDERAB LES [facility] [place] [address] * (ABNORMAL) Phosphorus (05/02/2021 7:49 AM EDT) Phosphorus 2.3(L) 2.5 - 4.5 mg/dL [facility] Blood 05/02/2021 7:49 AM EDT 05/02/2021 8:02 AM EDT Narrative Resulting Agency Comment Spec In Lab Mat Casper MD CHEMISTRY ORDERABL ES Performing Organization Address City/[facility]/ZIP Co de Phone Number [facility] [place] [address] * Magnesium (05/02/2021 7:49 AM EDT) Pathologist [facility] Magnesium 0.84 0.69 - 1.07 mmol/L [facility] Blood 05/02/2021 7:49 AM EDT 05/02/2021 8:02 AM EDT Narrative Resulting Agency Comment Spec In Lab Mat Casper MD CHEMISTRY ORDERABL ES Performing Organization Address [facility] Co de Phone Number [facility] [place] [address] * (ABNORMAL) Basic Metabolic Panel (non-fasting) (05/02/2021 7:49 AM EDT) Pathologist [facility] Glucose 175 65 - 199 mg/dL [facility] Comment:Diabetes: >=200 mg/d L plus symptoms Blood Urea Nitrogen 12 10 - 20 mg/dL [facility] Creatinine 0.49(L) 0.80 - 1.50 mg/dL [facility] Sodium 140 135 - 145 mmol/L [facility] Potassium 3.9 3.5 - 5.0 mmol/L [facility] Comment: Please note: ??Patients with WBC >100,000 may have falsely elevated Potassium levels. ??For accurate Potassium quantification in these patients send serum separator tube (gold top) for subsequent determinations. ??Contact the Clinical Chemistry Laboratory if there are any questions. Chloride 100 98 - 107 mmol/L [facility] Carbon Dioxide 28 22 - 31 mmol/L [facility] Anion Gap 12 5 - 15 mmol/L [facility] Calcium 8.0(L) 8.5 - 10.5 mg/dL [facility] Est Glomerular Filtration Rate 129 >=60 mL/min/1. 73 m?? [facility] Comment: This patient? s estimated glomerular filtration rate (eGFR) is between 129 mL/min/1.73 m2 (patients with less muscle mass per kg body weight) and 150 mL/min/1.73 m2 (patients with more muscle mass per kg body weight) as determined by the CKD-EPI equation. Assessment of eGFR is not appropriate when creatinine concentrations are rapidly changing. For clinical decisions where creatinine clearance will affect therapy, a 24-hour urine creatinine clearance may be advised. Assignment of CKD stage 1 - 5 for patients with an eGFR near the transition point between stages may be based on clinical assessment of muscle mass and symptoms in addition to eGFR. Blood 05/02/2021 7:49 AM EDT 05/02/2021 8:02 AM EDT Narrative Resulting Agency Comment Spec In Lab Mat Casper MD CHEMISTRY ORDERABL ES Performing Organization Address [facility] Co de Phone Number [facility] [place] [address] * POCT Glucose (05/02/2021 7:41 AM EDT) Glucose, POC 163 65 - 199 mg/dL [facility] Comment: Supplemental ranges: <140 mg/dL before meals <180 mg/dL all other times of the day Blood 05/02/2021 7:41 AM EDT 05/02/2021 7:41 AM EDT Mat Casper MD POINT OF CARE TEST ORDERABLES Performing Organization Address [facility]/ZIP Co de Phone Number [facility] [place] [address] * POCT Glucose (05/02/2021 3:48 AM EDT) Glucose, POC 151 65 - 199 mg/dL [facility] Comment: Supplemental ranges: <140 mg/dL before meals <180 mg/dL all other times of the day Blood 05/02/2021 3:48 AM EDT 05/02/2021 3:48 AM EDT Mat Casper MD POINT OF CARE TEST ORDERABLES Performing Organization Address City/[facility] Co de Phone Number [facility] [place] [address] * (ABNORMAL) POCT Glucose (05/01/2021 11:33 PM EDT) Glucose, POC 206(H) 65 - 199 mg/dL [facility] Comment: Supplemental ranges: <140 mg/dL before meals <180 mg/dL all other times of the day Blood 05/01/2021 11:3 3 PM EDT 05/01/2021 11:33 PM EDT Mat Casper MD POINT OF CARE TEST ORDERABLES Performing Organization Address [facility] Co de Phone Number [facility] [place] [address] * POCT Glucose (05/01/2021 7:53 PM EDT) Glucose, POC 183 65 - 199 mg/dL [facility] Comment: Supplemental ranges: <140 mg/dL before meals <180 mg/dL all other times of the day Blood 05/01/2021 7:53 PM EDT 05/01/2021 7:53 PM EDT Mat Casper MD POINT OF CARE TEST ORDERABLES Performing Organization Address City/[facility] Co de Phone Number [facility] [place] [address] * POCT Glucose (05/01/2021 4:04 PM EDT) Glucose, POC 141 65 - 199 mg/dL [facility] Comment: Supplemental ranges: <140 mg/dL before meals <180 mg/dL all other times of the day Blood 05/01/2021 4:04 PM EDT 05/01/2021 4:04 PM EDT Mat Casper MD POINT OF CARE TEST ORDERABLES Performing Organization Address City/[facility]/ZIP Co de Phone Number [facility] [place] [address] * POCT Glucose (05/01/2021 3:22 PM EDT) Glucose, POC 146 65 - 199 mg/dL [facility] Comment: Supplemental ranges: <140 mg/dL before meals <180 mg/dL all other times of the day Blood 05/01/2021 3:22 PM EDT 05/01/2021 3:22 PM EDT Mat Casper MD POINT OF CARE TEST ORDERABLES Performing Organization Address [facility] Co de Phone Number [facility] [place] [address] * POCT Glucose (05/01/2021 12:10 PM EDT) Glucose, POC 158 65 - 199 mg/dL [facility] Comment: Supplemental ranges: <140 mg/dL before meals <180 mg/dL all other times of the day Blood 05/01/2021 12:1 0 PM EDT 05/01/2021 12:10 PM EDT Mat Casper MD POINT OF CARE TEST ORDERABLES Performing Organization Address City/[facility] Co de Phone Number [facility] [place] [address] * POCT Glucose (05/01/2021 7:38 AM EDT) Glucose, POC 179 65 - 199 mg/dL [facility] Comment: Supplemental ranges: <140 mg/dL before meals <180 mg/dL all other times of the day Blood 05/01/2021 7:38 AM EDT 05/01/2021 7:38 AM EDT Mat Casper MD POINT OF CARE TEST ORDERABLES Performing Organization Address City/[facility]/ZIP Co de Phone Number [facility] [place] [address] * (ABNORMAL) POCT Glucose (05/01/2021 3:22 AM EDT) [facility] Glucose, POC 230(H) 65 - 199 mg/dL [facility] Comment: Supplemental ranges: <140 mg/dL before meals <180 mg/dL all other times of the day Blood 05/01/2021 3:22 AM EDT 05/01/2021 3:22 AM EDT Mat Casper MD POINT OF CARE TEST ORDERABLES Performing Organization Address [facility] Co de Phone Number [facility] [place] [address] * (ABNORMAL) Albumin Level (05/01/2021 12:59 AM EDT) [facility] Albumin 3.1(L) 3.2 - 5.2 g/dL [facility] Blood Venous Draw / Unknown 05/01/2021 12:59 AM EDT 05/01/2021 1:19 AM EDT Narrative Resulting Agency Comment Spec In Lab Stephy Bianchi MD CHEMISTRY ORDERABLES Performing Organization Address City/[facility]/ZIP Co de Phone Number [facility] [place] [address] * (ABNORMAL) Differential, Automated (05/01/2021 12:59 AM EDT) [facility] Neutrophil % 73.0 % [facility] Neutrophil Absolute 6.54(H) 1.70 - 6.10 x10(3)/mc L [facility] Lymph % 18.3 % [facility] Lymphocytes Abs 1.6 0.9 - 3.2 x10(3)/mc L [facility] Monocyte % 7.1 % [facility] Monocyte Abs 0.6 0.3 - 0.9 x10(3)/ L [facility] Eos % 0.8 % [facility] Eosinophils Abs 0.1 0.0 - 0.4 x10(3)/[facility] Basophil % 0.4 % [facility] Baso Absolute 0.0 0.0 - 0.1 x10(3)/[facility] Immature Gran % 0.40 % [facility] Comment: Immature granulocytes(IG's)percentage and absolute count will include metamyelocytes, myelocytes, and promyelocytes. Blood smears from CBCs yielding IG's will be scanned manually for concordance. If this scan disagrees with the automated IG or if promyelocytes are noted, a manual differential will be performed. Immature Gran Absolute 0.04 0.00 - 0.04 x10(3)/[facility] Blood 05/01/2021 12:5 9 AM EDT 05/01/2021 1:15 AM EDT Narrative Resulting Agency Comment Spec In Lab Samreen Moreno MD HEMATOLOGY ORDERAB LES [facility] [place] [address] * (ABNORMAL) Hemogram (05/01/2021 12:59 AM EDT) White Blood Cell 9.0 4.0 - 9.5 x10(3)/[facility] Red Blood Cell 4.15(L) 4.58 - 5.54 x10(6)/ L [facility] Hemoglobin 11.6(L) 13.7 - 16.5 g/dL [facility] Hematocrit 35.4(L) 40.5 - 48.5 % [facility] Mean Cell Volume 85.3 82.9 - 93.1 fL [facility] Mean Cell Hemoglobin 28.0 27.5 - 32.1 pg [facility] Mean Cell Hemoglobin Concentration 32.8 32.0 - 35.7 g/dL [facility] Platelet 154 145 - 357 x10(3)/mc L [facility] RDW Standard Deviation 43.0 36.0 - 45.0 fL [facility] RDW coefficient of variation 13.8 11.4 - 13.8 % [facility] Mean Platelet Volume 9.5 7.6 - 12.9 fL [facility] NRBC% auto 0.0 % [facility] NRBC Absolute 0.000 0.000 - 0.000 x10(3)/mc L [facility] Blood 05/01/2021 12:5 9 AM EDT 05/01/2021 1:15 AM EDT Narrative Resulting Agency Comment Spec In Lab Samreen Moreno MD HEMATOLOGY ORDERAB LES Performing Organization Address City/[facility]/ZIP Co de Phone Number [facility] [place] [address] * (ABNORMAL) Phosphorus (05/01/2021 12:59 AM EDT) Phosphorus 2.4(L) 2.5 - 4.5 mg/dL [facility] Blood 05/01/2021 12:5 9 AM EDT 05/01/2021 1:15 AM EDT Narrative Resulting Agency Comment Spec In Lab Mat Casper MD CHEMISTRY ORDERABL ES [facility] [place] [address] * Magnesium (05/01/2021 12:59 AM EDT) Magnesium 0.82 0.69 - 1.07 mmol/L [facility] Blood 05/01/2021 12:5 9 AM EDT 05/01/2021 1:15 AM EDT Narrative Resulting Agency Comment Spec In Lab Mat Casper MD CHEMISTRY ORDERABL ES [facility] [place] [address] * (ABNORMAL) Basic Metabolic Panel (non-fasting) (05/01/2021 12:59 AM EDT) Glucose 183 65 - 199 mg/dL [facility] Comment:Diabetes: >=200 mg/d L plus symptoms Blood Urea Nitrogen 12 10 - 20 mg/dL [facility] Creatinine 0.61(L) 0.80 - 1.50 mg/dL [facility] Sodium 138 135 - 145 mmol/L [facility] Potassium 3.7 3.5 - 5.0 mmol/L [facility] Comment: Please note: ??Patients with WBC >100,000 may have falsely elevated Potassium levels. ??For accurate Potassium quantification in these patients send serum separator tube (gold top) for subsequent determinations. ??Contact the Clinical Chemistry Laboratory if there are any questions. Chloride 104 98 - 107 mmol/L [facility] Carbon Dioxide 27 22 - 31 mmol/L [facility] Anion Gap 7 5 - 15 mmol/L [facility] Calcium 7.6(L) 8.5 - 10.5 mg/dL [facility] Est Glomerular Filtration Rate 118 >=60 mL/min/1. 73 m?? [facility] Comment: This patient? s estimated glomerular filtration rate (eGFR) is between 118 mL/min/1.73 m2 (patients with less muscle mass per kg body weight) and 137 mL/min/1.73 m2 (patients with more muscle mass per kg body weight) as determined by the CKD-EPI equation. Assessment of eGFR is not appropriate when creatinine concentrations are rapidly changing. For clinical decisions where creatinine clearance will affect therapy, a 24-hour urine creatinine clearance may be advised. Assignment of CKD stage 1 - 5 for patients with an eGFR near the transition point between stages may be based on clinical assessment of muscle mass and symptoms in addition to eGFR. Blood 05/01/2021 12:5 9 AM EDT 05/01/2021 1:15 AM EDT Narrative Resulting Agency Comment Spec In Lab Mat Casper MD CHEMISTRY ORDERABL ES Performing Organization Address [facility] Co de Phone Number [facility] [place] [address] * POCT Glucose (04/30/2021 11:55 PM EDT) Glucose, POC 174 65 - 199 mg/dL [facility] Comment: Supplemental ranges: <140 mg/dL before meals <180 mg/dL all other times of the day Blood 04/30/2021 11:5 5 PM EDT 04/30/2021 11:55 PM EDT Mat Casper MD POINT OF CARE TEST ORDERABLES Performing Organization Address [facility] Co de Phone Number [facility] [place] [address] * POCT Glucose (04/30/2021 7:45 PM EDT) Glucose, POC 156 65 - 199 mg/dL [facility] Comment: Supplemental ranges: <140 mg/dL before meals <180 mg/dL all other times of the day Blood 04/30/2021 7:45 PM EDT 04/30/2021 7:45 PM EDT Mat Casper MD POINT OF CARE TEST ORDERABLES Performing Organization Address [facility] Co de Phone Number [facility] [place] [address] * POCT Glucose (04/30/2021 4:02 PM EDT) Glucose, POC 154 65 - 199 mg/dL [facility] Comment: Supplemental ranges: <140 mg/dL before meals <180 mg/dL all other times of the day Blood 04/30/2021 4:02 PM EDT 04/30/2021 4:02 PM EDT Mat Casper MD POINT OF CARE TEST ORDERABLES [facility] [place] [address] * POCT Glucose (04/30/2021 11:41 AM EDT) Glucose, POC 163 65 - 199 mg/dL [facility] Comment: Supplemental ranges: <140 mg/dL before meals <180 mg/dL all other times of the day Blood 04/30/2021 11:4 1 AM EDT 04/30/2021 11:41 AM EDT Mat Casper MD POINT OF CARE TEST ORDERABLES Performing Organization Address City/[facility]/ZIP Co de Phone Number [facility] [place] [address] * (ABNORMAL) POCT Glucose (04/30/2021 8:04 AM EDT) Glucose, POC 205(H) 65 - 199 mg/dL [facility] Comment: Supplemental ranges: <140 mg/dL before meals <180 mg/dL all other times of the day Blood 04/30/2021 8:04 AM EDT 04/30/2021 8:04 AM EDT Mat Casper MD POINT OF CARE TEST ORDERABLES [facility] [place] [address] * POCT Glucose (04/30/2021 6:18 AM EDT) Glucose, POC 164 65 - 199 mg/dL [facility] Comment: Supplemental ranges: <140 mg/dL before meals <180 mg/dL all other times of the day Blood 04/30/2021 6:18 AM EDT 04/30/2021 6:18 AM EDT Mat Casper MD POINT OF CARE TEST ORDERABLES Performing Organization Address City/[facility] Co de Phone Number [facility] [place] [address] * (ABNORMAL) POCT Glucose (04/30/2021 3:27 AM EDT) Glucose, POC 245(H) 65 - 199 mg/dL [facility] Comment: Supplemental ranges: <140 mg/dL before meals <180 mg/dL all other times of the day Blood 04/30/2021 3:27 AM EDT 04/30/2021 3:27 AM EDT Mat Casper MD POINT OF CARE TEST ORDERABLES Performing Organization Address [facility] de Phone Number [facility] [place] [address] * (ABNORMAL) POCT Glucose (04/30/2021 1:25 AM EDT) Glucose, POC 264(H) 65 - 199 mg/dL [facility] Comment: Supplemental ranges: <140 mg/dL before meals <180 mg/dL all other times of the day Blood 04/30/2021 1:25 AM EDT 04/30/2021 1:25 AM EDT Mat Casper MD POINT OF CARE TEST ORDERABLES Performing Organization Address [facility] Co de Phone Number [facility] [place] [address] * (ABNORMAL) Hemoglobin A1c (04/30/2021 12:56 AM EDT) Hemoglobin A1c 7.0(H) 4.3 - 5.6 % [facility] Comment: Reference Range: 4.3 - 5.6% [...] 1, S67-74 Estimated Average Glucose 153 mg/dL [facility] Comment: eAG equivalents for HbA1c percentages: [...] into estimated average glucose values. ??Diabetes Care 2008:31(8):[id number]. Blood Venous Draw / Unknown 04/30/2021 12:56 AM EDT 04/30/2021 8:50 AM EDT Narrative Resulting Agency Comment Spec In Lab Milagros Roy APRN CHEMISTRY ORDERABLE S [facility] [place] [address] * (ABNORMAL) Differential, Automated (04/30/2021 12:56 AM EDT) Neutrophil % 89.3 % [facility] Neutrophil Absolute 11.27(H) 1.70 - 6.10 x10(3)/ L [facility] Lymph % 4.7 % [facility] Lymphocytes Abs 0.6(L) 0.9 - 3.2 x10(3)/ L [facility] Monocyte % 5.3 % [facility] Monocyte Abs 0.7 0.3 - 0.9 x10(3)/[facility] Eos % 0.0 % [facility] Eosinophils Abs 0.0 0.0 - 0.4 x10(3)/[facility] Basophil % 0.2 % [facility] Baso Absolute 0.0 0.0 - 0.1 x10(3)/[facility] Immature Gran % 0.50 % [facility] Comment: Immature granulocytes(IG's)percentage and absolute count will include metamyelocytes, myelocytes, and promyelocytes. Blood smears from CBCs yielding IG's will be scanned manually for concordance. If this scan disagrees with the automated IG or if promyelocytes are noted, a manual differential will be performed. Immature Gran Absolute 0.06(H) 0.00 - 0.04 x10(3)/[facility] Blood 04/30/2021 12:5 6 AM EDT 04/30/2021 1:14 AM EDT Narrative Resulting Agency Comment Spec In Lab Samreen Moreno MD HEMATOLOGY ORDERAB LES [facility] [place] [address] * (ABNORMAL) Hemogram (04/30/2021 12:56 AM EDT) White Blood Cell 12.6(H) 4.0 - 9.5 x10(3)/ L [facility] Red Blood Cell 4.49(L) 4.58 - 5.54 x10(6)/ L [facility] Hemoglobin 12.4(L) 13.7 - 16.5 g/dL [facility] Hematocrit 37.8(L) 40.5 - 48.5 % [facility] Mean Cell Volume 84.2 82.9 - 93.1 fL [facility] Mean Cell Hemoglobin 27.6 27.5 - 32.1 pg [facility] Mean Cell Hemoglobin Concentration 32.8 32.0 - 35.7 g/dL [facility] Platelet 178 145 - 357 x10(3)/mc L [facility] RDW Standard Deviation 42.4 36.0 - 45.0 fL [facility] RDW coefficient of variation 13.7 11.4 - 13.8 % [facility] Mean Platelet Volume 9.7 7.6 - 12.9 fL [facility] NRBC% auto 0.0 % [facility] NRBC Absolute 0.000 0.000 - 0.000 x10(3)/mc L [facility] Blood 04/30/2021 12:5 6 AM EDT 04/30/2021 1:14 AM EDT Narrative Resulting Agency Comment Spec In Lab Samreen Moreno MD HEMATOLOGY ORDERAB LES Performing Organization Address City/[facility]/[place] [address] * Phosphorus (04/30/2021 12:56 AM EDT) Phosphorus 3.6 2.5 - 4.5 mg/dL [facility] Blood 04/30/2021 12:5 6 AM EDT 04/30/2021 1:15 AM EDT Narrative Resulting Agency Comment Spec In Lab Mat Casper MD CHEMISTRY ORDERABL ES [facility] [place] [address] * Magnesium (04/30/2021 12:56 AM EDT) Magnesium 0.77 0.69 - 1.07 mmol/L [facility] Blood 04/30/2021 12:5 6 AM EDT 04/30/2021 1:15 AM EDT Narrative Resulting Agency Comment Spec In Lab Mat Casper MD CHEMISTRY ORDERABL ES [facility] [place] [address] * (ABNORMAL) Basic Metabolic Panel (non-fasting) (04/30/2021 12:56 AM EDT) Glucose 265(H) 65 - 199 mg/dL [facility] Comment:Diabetes: >=200 mg/d L plus symptoms Blood Urea Nitrogen 18 10 - 20 mg/dL [facility] Creatinine 0.69(L) 0.80 - 1.50 mg/dL [facility] Sodium 137 135 - 145 mmol/L [facility] Potassium 4.3 3.5 - 5.0 mmol/L [facility] Comment: Please note: ??Patients with WBC >100,000 may have falsely elevated Potassium levels. ??For accurate Potassium quantification in these patients send serum separator tube (gold top) for subsequent determinations. ??Contact the Clinical Chemistry Laboratory if there are any questions. Chloride 104 98 - 107 mmol/L [facility] Carbon Dioxide 23 22 - 31 mmol/L [facility] Anion Gap 10 5 - 15 mmol/L [facility] Calcium 8.2(L) 8.5 - 10.5 mg/dL [facility] Est Glomerular Filtration Rate 112 >=60 mL/min/1. 73 m?? [facility] Comment: This patient? s estimated glomerular filtration rate (eGFR) is between 112 mL/min/1.73 m2 (patients with less muscle mass per kg body weight) and 130 mL/min/1.73 m2 (patients with more muscle mass per kg body weight) as determined by the CKD-EPI equation. Assessment of eGFR is not appropriate when creatinine concentrations are rapidly changing. For clinical decisions where creatinine clearance will affect therapy, a 24-hour urine creatinine clearance may be advised. Assignment of CKD stage 1 - 5 for patients with an eGFR near the transition point between stages may be based on clinical assessment of muscle mass and symptoms in addition to eGFR. Blood 04/30/2021 12:5 6 AM EDT 04/30/2021 1:15 AM EDT Narrative Resulting Agency Comment Spec In Lab Mat Casper MD CHEMISTRY ORDERABL ES Performing Organization Address [facility] Co de Phone Number [facility] [place] [address] * (ABNORMAL) POCT Glucose (04/29/2021 11:31 PM EDT) Glucose, POC 261(H) 65 - 199 mg/dL [facility] Comment: Supplemental ranges: <140 mg/dL before meals <180 mg/dL all other times of the day Blood 04/29/2021 11:3 1 PM EDT 04/29/2021 11:31 PM EDT Mat Casper MD POINT OF CARE TEST ORDERABLES Performing Organization Address [facility] Co de Phone Number [facility] [place] [address] * XR Abdomen 1 view (Generic) (04/29/2021 9:07 PM EDT) Anatomical Region Laterality Modality Abdomen N/A Digital Radiogra phy Impressions 04/30/2021 12:38 AM EDT Enteric tube with tip and sidehole within the stomach. Preliminary report signed by: Elder Landry at 04/30/2021 12:29 AM I have personally reviewed the image(s) and the resident's interpretation and agree with the findings, Keith Marinelli MD at 04/30/2021 12:38 AM Thank you for letting us participate in the care of this patient. ??If you are a health care provider and have any questions regarding this report, please contact the number below. ??For patients who have questions please contact the health health care coach that requested your imaging first. ? Electronically signed by: Keith Marinelli MD, [facility] ([phone]), at 04/30/2021 12:38 AM Narrative 04/30/2021 12:38 AM EDT EXAMINATION: XR ABDOMEN 1 VIEW (GENERIC) CLINICAL HISTORY: NGT Placement. Please page [employer] on [employer] at [phone] for the okay to use. TECHNIQUE: Portable AP view of the abdomen for purposes of confirming enteric tube placement. COMPARISON: CT abdomen pelvis 07/03/2013 FINDINGS: Enteric tube courses below the diaphragm with tip and sidehole within the stomach. Paucity of bowel gas within the visualized abdomen. The left lung base is clear. Procedure Note Keith Marinelli MD - 04/30/2021 EXAMINATION: XR ABDOMEN 1 VIEW (GENERIC) CLINICAL HISTORY: NGT Placement. Please page [employer] Manager on [employer] at [phone] the okay to use. TECHNIQUE: Portable AP view of the abdomen for purposes of confirming enteric tube placement. COMPARISON: CT abdomen pelvis 07/03/2013 FINDINGS: Enteric tube courses below the diaphragm with tip and sidehole withinthe stomach. Paucity of bowel gas within the visualized abdomen. The left lung base isclear. IMPRESSION Enteric tube with tip and sidehole within the stomach. Preliminary report signed by: Elder Landry at 04/30/2021 12:29 AM I have personally reviewed the image(s) and the resident's interpretationand agree with the findings, Keith Marinelli MD at 04/30/2021 12:38 AM Thank you for letting us participate in the care of this patient. If youare a health care provider and have any questions regarding this report,please contact the number below. For patients who have questions please contactthe health health care coach that requested your imaging first. Electronically signed by: Keith Marinelli MD, [facility]([phone]), at 04/30/2021 12:38 AM Mat Casper MD IMG DX ORDERABLES * Specimen to Pathology (04/29/2021 6:44 PM EDT) AP Specimen 04/29/2021 6:44 PM EDT 04/29/2021 6:44 PM EDT Narrative [facility] - 04/29/2021 6:44 PM EDT Specimen requisition ordered. ??Separate Pathology report to follow Mat Casper MD PATHOLOGY/CYTOLOGY ORDERABLES Performing Organization Address [facility] [place] [address] * Specimen to Pathology (04/29/2021 6:44 PM EDT) AP Specimen 04/29/2021 6:44 PM EDT 04/29/2021 6:44 PM EDT Narrative [facility] - 04/29/2021 6:44 PM EDT Specimen requisition ordered. ??Separate Pathology report to follow Mat Casper MD PATHOLOGY/CYTOLOGY ORDERABLES Performing Organization Address [facility] [place] [address] * Specimen to Pathology (04/29/2021 6:36 PM EDT) AP Specimen 04/29/2021 6:36 PM EDT 04/29/2021 6:36 PM EDT Narrative [facility] - 04/29/2021 6:36 PM EDT Specimen requisition ordered. ??Separate Pathology report to follow Mat Casper MD PATHOLOGY/[place] [address] * Specimen to Pathology (04/29/2021 6:36 PM EDT) AP Specimen 04/29/2021 6:36 PM EDT 04/29/2021 6:36 PM EDT Narrative [facility] - 04/29/2021 6:36 PM EDT Specimen requisition ordered. ??Separate Pathology report to follow Mat Casper MD PATHOLOGY/CYTOLOGY ORDERABLES Performing Organization Address City/[facility]/ZIP [place] [address] * Specimen to Pathology (04/29/2021 6:36 PM EDT) AP Specimen 04/29/2021 6:36 PM EDT 04/29/2021 6:36 PM EDT Narrative [facility] - 04/29/2021 6:36 PM EDT Specimen requisition ordered. ??Separate Pathology report to follow Mat Casper MD PATHOLOGY/CYTOLOGY ORDERABLES Performing Organization Address City/[facility]/[place] [address] * Specimen to Pathology (04/29/2021 6:36 PM EDT) AP Specimen 04/29/2021 6:36 PM EDT 04/29/2021 6:36 PM EDT Narrative [facility] - 04/29/2021 6:36 PM EDT Specimen requisition ordered. ??Separate Pathology report to follow Mat Casper MD PATHOLOGY/CYTOLOGY ORDERABLES Performing Organization Address City/[facility]/[place] [address] * Specimen to Pathology (04/29/2021 6:36 PM EDT) AP Specimen 04/29/2021 6:36 PM EDT 04/29/2021 6:36 PM EDT Narrative [facility] - 04/29/2021 6:36 PM EDT Specimen requisition ordered. ??Separate Pathology report to follow Mat Casper MD PATHOLOGY/CYTOLOGY ORDERABLES Performing Organization Address [facility] [place] [address] * Specimen to Pathology (04/29/2021 6:20 PM EDT) AP Specimen 04/29/2021 6:20 PM EDT 04/29/2021 6:20 PM EDT Narrative [facility] - 04/29/2021 6:20 PM EDT Specimen requisition ordered. ??Separate Pathology report to follow Mat Casper MD PATHOLOGY/CYTOLOGY ORDERABLES Performing Organization Address [facility] [place] [address] * Specimen to Pathology (04/29/2021 3:58 PM EDT) AP Specimen 04/29/2021 3:58 PM EDT 04/29/2021 3:58 PM EDT Narrative [facility] - 04/29/2021 3:58 PM EDT Specimen requisition ordered. ??Separate Pathology report to follow Mat Casper MD PATHOLOGY/CYTOLOGY ORDERABLES Performing Organization Address [facility] [place] [address] * Specimen to Pathology (04/29/2021 3:48 PM EDT) AP Specimen 04/29/2021 3:48 PM EDT 04/29/2021 3:48 PM EDT Narrative [facility] - 04/29/2021 3:48 PM EDT Specimen requisition ordered. ??Separate Pathology report to follow Mat Casper MD PATHOLOGY/CYTOLOGY ORDERABLES Performing Organization Address City/[facility]/ZIP Co de Phone Number [facility] [place] [address] * Specimen to Pathology (04/29/2021 3:43 PM EDT) AP Specimen 04/29/2021 3:43 PM EDT 04/29/2021 3:43 PM EDT Narrative [facility] - 04/29/2021 3:43 PM EDT Specimen requisition ordered. ??Separate Pathology report to follow Mat Casper MD PATHOLOGY/CYTOLOGY ORDERABLES Performing Organization Address [facility] [place] [address] * Specimen to Pathology (04/29/2021 3:41 PM EDT) AP Specimen 04/29/2021 3:41 PM EDT 04/29/2021 3:41 PM EDT Narrative [facility] - 04/29/2021 3:41 PM EDT Specimen requisition ordered. ??Separate Pathology report to follow Mat Casper MD PATHOLOGY/CYTOLOGY ORDERABLES Performing Organization Address [facility]/ZIP Co de Phone Number [facility] [place] [address] * Specimen to Pathology (04/29/2021 3:34 PM EDT) AP Specimen 04/29/2021 3:34 PM EDT 04/29/2021 3:34 PM EDT Narrative [facility] - 04/29/2021 3:34 PM EDT Specimen requisition ordered. ??Separate Pathology report to follow Mat Casper MD PATHOLOGY/CYTOLOGY ORDERABLES Performing Organization Address [facility] [place] [address] * (ABNORMAL) BLOOD GAS 2 ARTERIAL (04/29/2021 3:05 PM EDT) pH, Arterial 7.44 7.35 - 7.45 [facility] PCO2, Arterial 40 35 - 45 mmHg [facility] PO2, Arterial 124(H) 85 - 104 mmHg [facility] Bicarbonate, Arterial 26.3(H) 20.0 - 26.0 mmol/L [facility] Base Excess, Arterial 2.0 -3.0 - 3.0 mmol/L [facility] Hgb Blood Gas 13.1(L) 13.7 - 16.5 g/dL [facility] Oxyhemoglobin, Arterial 95.7 94.0 - 97.0 % [facility] Carboxyhemoglob in, Arterial 2.6 % [facility] Comment: Nonsmokers: 0.5-1.5% COHB Smokers: Variable, but usually less than 10% Toxic: 20-30% COHB Lethal: Greater than 60% COHB Methemoglobin, Arterial 0.3 <=1.5 % [facility] Na Whole Blood 134(L) 135 - 145 mmol/L [facility] K Whole Blood 3.8 3.5 - 5.0 mmol/L [facility] Comment: Please note: Patients with WBC >100,000 may have falsely elevated Potassium levels. Contact the Clinical Chemistry Laboratory if there are any questions. ICa Whole Blood 1.10(L) 1.15 - 1.33 mmol/L [facility] Comment: Note: ??Total bilirubin higher than 20 mg/dL may lead to falsely low ionized calcium. CL Whole Blood 103 98 - 107 mmol/L [facility] Gluc Whole Bld 204(H) 65 - 199 mg/dL [facility] Comment:Diabetes: >=200 mg/d L plus symptoms. Lactate WB 1.5 0.5 - 2.2 mmol/L [facility] FIO2 Art 48 % [facility] PF Ratio Art 258 [facility] Temp Art 36.5 Celsius [facility] Blood 04/29/2021 3:05 PM EDT 04/29/2021 3:05 PM EDT Mat Casper MD POINT OF CARE TEST ORDERABLES Performing Organization Address City/[facility]/[place] [address] * Specimen to Pathology (04/29/2021 2:41 PM EDT) AP Specimen 04/29/2021 2:41 PM EDT 04/29/2021 2:41 PM EDT Narrative [facility] - 04/29/2021 2:41 PM EDT Specimen requisition ordered. ??Separate Pathology report to follow aMt Casper MD PATHOLOGY/CYTOLOGY ORDERABLES Performing Organization Address [facility] [place] [address] * Specimen to Pathology (04/29/2021 2:39 PM EDT) AP Specimen 04/29/2021 2:39 PM EDT 04/29/2021 2:39 PM EDT Narrative [facility] - 04/29/2021 2:39 PM EDT Specimen requisition ordered. ??Separate Pathology report to follow Mat Casper MD PATHOLOGY/CYTOLOGY ORDERABLES Performing Organization Address [facility] [place] [address] * Specimen to Pathology (04/29/2021 1:57 PM EDT) AP Specimen 04/29/2021 1:57 PM EDT 04/29/2021 1:57 PM EDT Narrative [facility] - 04/29/2021 1:57 PM EDT Specimen requisition ordered. ??Separate Pathology report to follow Mat Casper MD PATHOLOGY/CYTOLOGY ORDERABLES Performing Organization Address [facility] [place] [address] * Specimen to Pathology (04/29/2021 1:57 PM EDT) AP Specimen 04/29/2021 1:57 PM EDT 04/29/2021 1:57 PM EDT Narrative [facility] - 04/29/2021 1:57 PM EDT Specimen requisition ordered. ??Separate Pathology report to follow Mat Casper MD PATHOLOGY/CYTOLOGY ORDERABLES [facility] [place] [address] * (ABNORMAL) BLOOD GAS 2 ARTERIAL (04/29/2021 12:00 PM EDT) pH, Arterial 7.46(H) 7.35 - 7.45 [facility] PCO2, Arterial 37 35 - 45 mmHg [facility] PO2, Arterial 394(H) 85 - 104 mmHg [facility] Bicarbonate, Arterial 25.5 20.0 - 26.0 mmol/L [facility] Base Excess, Arterial 1.6 -3.0 - 3.0 mmol/L [facility] Hgb Blood Gas 13.4(L) 13.7 - 16.5 g/dL [facility] Oxyhemoglobin, Arterial 96.2 94.0 - 97.0 % [facility] Carboxyhemoglob in, Arterial 3.2 % [facility] Comment: Nonsmokers: 0.5-1.5% COHB Smokers: Variable, but usually less than 10% Toxic: 20-30% COHB Lethal: Greater than 60% COHB Methemoglobin, Arterial 0.3 <=1.5 % [facility] Na Whole Blood 134(L) 135 - 145 mmol/L [facility] K Whole Blood 4.2 3.5 - 5.0 mmol/L [facility] Comment: Please note: Patients with WBC >100,000 may have falsely elevated Potassium levels. Contact the Clinical Chemistry Laboratory if there are any questions. ICa Whole Blood 1.10(L) 1.15 - 1.33 mmol/L [facility] Comment: Note: ??Total bilirubin higher than 20 mg/dL may lead to falsely low ionized calcium. CL Whole Blood 103 98 - 107 mmol/L [facility] Gluc Whole Bld 151 65 - 199 mg/dL [facility] Comment:Diabetes: >=200 mg/d L plus symptoms. Lactate WB 1.0 0.5 - 2.2 mmol/L [facility] FIO2 Art 94 % [facility] PF Ratio Art 419 [facility] Blood 04/29/2021 12:0 0 PM EDT 04/29/2021 12:00 PM EDT Mat Casper MD POINT OF CARE TEST ORDERABLES Performing Organization Address City/State/[facility] Co de Phone Number [facility] [place] [address] * Surgical Pathology Report (04/29/2021 11:38 AM EDT) Final Diagnosis [id number] ? [facility]; A The signing pathologist has (i) examined the relevant preparation(s) for the specimen(s) and (ii) rendered or confirmed the diagnosis(es). . ?Surgical Pathology DIAGNOSIS A - Inter-arytenoid, biopsy ?? [...] Left lateral soft tissue, 0.7 mm. ??See Synoptic report for final Courtney. Benign thyroid gland. [...] Verified: ??05/07/2021 16:08 ??Pathologist Performed at: ??-[facility] [place], [place] SYNOPTIC Specimen ? Procedure: ??Total laryngectomy; ??Partial Pharyngectomy and Left ?Hemithyroidectomy Tumor ? Tumor Focality: ??Unifocal ? Tumor Site: ??Larynx, supraglottis ?Tumor Subsite: ??Epiglottis, lingual aspect; ??Epiglottis, laryngeal aspect; ?Aryepiglottic folds ? Transglottic Extension: ??Not identified ? Tumor Laterality: ??Right; ??Left; ??Midline ? Tumor Size: ??5.2 Centimeters (cm) ? 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 Histologic Grade: ??G2, moderately differentiated ? Lymphovascular Invasion: ??Not identified ? Perineural Invasion: ??Not identified Margins ? Margin Status for Invasive Tumor: ??All margins negative for invasive tumor ?Distance from Invasive Tumor to Closest Margin: ??18 mm ?Closest Margin(s) to Invasive Tumor: ??Left AEF (K6) ?Other Close Margin(s) to Invasive Tumor: ??With additional marginal tissue ? resections (separate specimens), all other RM > 5 mm ? Margin Status for Noninvasive Tumor: ??All margins negative for noninvasive ?tumor ?Distance from Noninvasive Tumor to Closest Margin: ??Greater than 5 mm ?Closest Margin(s) to Noninvasive Tumor: ??to all RM Regional Lymph Nodes ? Regional Lymph Node Status: ??All regional lymph nodes negative for tumor ? Number of Lymph Nodes Examined: ??122 Pathologic Stage Classification (pTNM, AJCC 8th Edition) ? pT Category: ??pT3 ? pN Category: ??pN0 Additional Findings ? Additional Findings: ??Benign paty thyroid gland Comments ? K8 Tumor Block(s): ??K1 CAP eCC December 2020 Release SPECIMEN(S) SUBMITTED A - Inter-arytenoid, biopsy (1) ?? for frozen section B - RIGHT neck dissection, level 2A, biopsy (1) C - RIGHT neck dissection Level 3, biopsy (1) D - RIGHT level 4, excision (1) E - RIGHT neck 2B, excision (1) F - LEFT NECK DISSECTION 2A, excision (1) G - LEFT NECK DISSECTION LEVEL 3, excision (1) . SPECIMEN(S) SUBMITTED H - LEFT NECK DISSECTION LEVEL 2B, excision (1) I - LEFT NECK DISSECTION LEVEL 4, excision (1) J - MIDLINE NECK DISSECTION LEVEL 6, excision (1) K - TOTAL LARYNGECTOMY, PARTIAL PHARYNGECTOMY AND LEFT PATY THYROID, excision (1) L - FINAL SUPERIOR LEFT LATERAL PHARYNX MARGIN, excision (1) M - FINAL SUPERIOR PHARYNX MARGIN, excision (1) N - FINAL LEFT LATERAL TONGUE BASE, excision (1) O - FINAL LEFT MEDIAL TONGUE BASE, excision (1) P - FINAL RIGHT TONGUE BASE, excision (1) Q - FINAL RIGHT SUPERIOR PHARYNX, excision (1) R - LEFT TONSIL STITCH = SUPERIOR, excision (1) CLINICAL INFORMATION Supraglottic/hypopha ryngeal cancer SPECIMEN PROCESSING A - Labeled/Fixative: Interarytenoid, fresh for frozen section. Quantity/Size: ??Two, each 0.5 cm Tissue Description: Fitzgerald-pink mucosal tissue Sections/Processing: The specimen is totally submitted for frozen section in 1 cassette labeled A1. B - Labeled/Fixative: Right neck dissection, level IIA, fresh. Quantity/Size: Multiple, 6.5 x 5.5 x 1.6 cm. Tissue Description: Adipose tissue containing multiple lymph nodes measuring up to 2.3 cm. Sections/Processing: The lymph nodes are entirely submitted in 16 cassettes as follows: ?B1-B2: ??Single trisected lymph node ?B3-B5: ??Single serially sectioned lymph node ?B6: ??Single bisected lymph node ?B7: ??Single bisected lymph node ?B8: ??Single bisected lymph node ?B9: ??Single bisected lymph node ?B10: ??Single bisected lymph node ?B11: ??Single bisected lymph node ?B12-B16: ??Multiple intact candidate lymph nodes C - Labeled/Fixative: Right neck dissection level III, fresh. Quantity/Size: Multiple, 6.8 x 6.0 x 1.8 cm. Tissue Description: Adipose tissue containing multiple lymph nodes measuring up to 1.6 cm. Sections/Processing: The lymph nodes are entirely submitted in 15 cassettes as follows: ?C1-C2: ??Single bisected lymph node ?C3-C9: ??Each block containing a single bisected lymph node ?C10-C15: ??Multiple intact candidate lymph nodes D - Labeled/Fixative: Right level IV neck, fresh. Quantity/Size: Single, 4.7 x 3.5 x 1.5 cm. Tissue Description: Adipose tissue containing multiple lymph nodes measuring up to 3.2 cm. . SPECIMEN PROCESSING Sections/Processing: The lymph nodes are entirely submitted in 17 cassettes as follows: ?D1-D4: ??Single serially sectioned lymph node ?D5-D6: ??Single serially sectioned lymph node ?D7-D10: ??Single serially sectioned lymph node ?D11-D14: ??Each block containing a single bisected lymph node ?D15-D17: ??Multiple intact lymph nodes E - Labeled/Fixative: Right neck 2B, fresh. Quantity/Size: Single, and 2.5 x 1.6 x 1.3 cm. Tissue Description: Rubbery, cauterized portion of fibroadipose tissue. Sections/Processing: Entirely submitted in 6 cassettes as follows: ?E1: ??2 intact candidate lymph nodes ?E2: ??Single bisected lymph node ?E3: ??Single intact candidate lymph node ?E4-E6: ??Remainder of tissue F - Labeled/Fixative: Left neck dissection 2A, fresh. Quantity/Size: Single, 6.0 x 4.2 x 2.2 cm. Tissue Description: Adipose tissue containing multiple lymph nodes measuring up to 3.7 cm. Sections/Processing: The lymph nodes are entirely submitted in 21 cassettes as follows: ?F1-F7: ??Single serially sectioned lymph node ?F8-F9: ??Single quadrasected lymph node ?F10: ??Single trisected lymph node ?F11-F16: ??Each block containing a single bisected lymph node ?F17-F21: ??Multiple intact candidate lymph nodes G - Labeled/Fixative: Left neck dissection level III, fresh. Quantity/Size: Single, 8.7 x 4.9 x 1.9 cm. Tissue Description: Adipose tissue containing multiple lymph nodes measuring up to 2.0 cm. Sections/Processing: The lymph nodes are entirely submitted in 18 cassettes as follows: ?G1-G2: ??Single trisected lymph node ?G3-G4: ??Single trisected lymph node ?G5-G11: ??Each block containing a single bisected lymph node ?G12-G18: ??Multiple intact lymph nodes H - Labeled/Fixative: Left neck dissection level IIB, fresh. Quantity/Size: Single, 2.2 x 1.5 x 1.5 cm. Tissue Description: Rubbery cauterized pink-yellow tissue. Sections/Processing: Serially sectioned and entirely submitted in 3 cassettes labeled H1-H3. I - Labeled/Fixative: Left neck dissection level IV, fresh. Quantity/Size: Two, combined 3.7 x 2.8 x 1.5 cm. Tissue Description: Adipose tissue containing multiple lymph nodes measuring up to 1.4 cm. Sections/Processing: The lymph nodes are entirely submitted in 6 cassettes as follows: ?I1-I3: ??Each block containing a single bisected lymph node ?I4-I6: ??Multiple intact candidate lymph nodes J - Labeled/Fixative: Midline neck dissection level , fresh. Quantity/Size: Single, 4.7 x 2.7 x 0.8 cm. Tissue Description: Adipose tissue containing 3 candidate lymph nodes measuring up to 0.7 cm. Sections/Processing: The lymph nodes are entirely in 1 cassette labeled J1. . SPECIMEN PROCESSING K - Labeled/Fixative: Total laryngectomy, partial pharyngectomy and left hemithyroid, fresh Quantity/Size: Single Size: ? 9.5 cm superior - inferior ?6.1 cm transverse ?0.0 cm anterior-posterior Tissue Description: Previously opened, total laryngectomy, with one tracheal rings Orientation: Not provided Lesion: Size: ? 5.0 cm superior - inferior ?5.2 cm transverse ?2.3 cm anterior-posterior Growth pattern: Ulcerating Color: [place]-red Location: Supraglottis Does lesion involve vocal cords? not involved, Does lesion cross mid-line? ??Yes Does lesion involve epiglottis? involved Extension into laryngeal sub sites: Preepiglottic space, Paraglottic space, epiglottis, left aryepiglottic fold Deepest invasion: 2.3 cm Margins: 3.9 cm from tracheal margin 0.6 cm from anterior soft tissue margin 0.7 cm from superior soft tissue margin (pre-epiglottic space) 1.4 cm from posterior soft tissue margin 1.6 cm from right arytenoid mucosal margin at posterior cricoid cartilage 1.4 cm from left arytenoid mucosal margin at posterior cricoid cartilage 1.2 cm from right aryepiglottic fold/pyriform sinus mucosal margin at lateral edge 1.4 cm from left aryepiglottic fold/pyriform sinus mucosal margin at lateral edge 1.8 cm from right anterior epiglottis mucosal margin, at vallecular 1.3 cm from left anterior epiglottis mucosal margin, at vallecular 0.1 cm from left lateral soft tissue margin 0.3 cm from right lateral soft tissue margin Other: Lymph Nodes: No lymph nodes identified Inking: D right half is inked black and the left half is inked blue Sections/Processing: Blocks submitted for decalcification: K10-K11 and K14. Telegraph Operator sections in 19 cassettes as follows: ?K1-K2: ??Inferior tracheal margin ?K3: ??Right arytenoid mucosal margin at posterior cricoid cartilage, perpendicular ? section ?K4: ??Left arytenoid mucosal margin at posterior cricoid cartilage, perpendicular ? section ?K5: ??Right aryepiglottic fold/pyriform sinus mucosal margin at lateral edge, ? perpendicular section ?K6: ??Left aryepiglottic fold/pyriform sinus mucosal margin at lateral edge, ? perpendicular section ?K7: ??Right anterior epiglottis mucosal margin, perpendicular section ?K8: ??Left anterior epiglottis mucosal margin, perpendicular sections ?K9: ??Right vocal cords ?K10: ??Anterior commissure with thyroid cartilage (no margins) ?K11: ??Left vocal cords with tumor in the paraglottic space including thyroid ? cartilage ?K12: ??Tumor involving right epiglottis/preepiglo ttic space with black inked right ? lateral soft tissue margin ?K13: ??Midline preepiglottic space/anterior soft tissue with tumor and soft tissue ? margin ?K14: ??Tumor with anterior soft tissue and hyoid bone ?K15-K16: ??Tumor with left lateral soft tissue margin ?K17: ??Posterior cricoid mucosal margin with posterior soft tissue margin ?K18: ??Left upper pole thyroid . SPECIMEN PROCESSING ?K19: ??Left lower pole thyroid L - Labeled/Fixative: Final superior left lateral pharynx margin, fresh. Quantity/Size: Single, 2.2 x 0.2-0.3 cm. Tissue Description: Glistening pink mucosa. Sections/Processing: Submitted en toto ??in 1 cassette labeled L1. M - Labeled/Fixative: Final superior pharynx margin, fresh. Quantity/Size: Single, 2.5 x 0.2 cm. Tissue Description: Strip of glistening fitzgerald-pink mucosa. Sections/Processing: Submitted en toto ??in 1 cassette labeled M1. N - Labeled/Fixative: Final left lateral tongue base, fresh. Quantity/Size: Single, 2.4 x 0.3 cm. Tissue Description: Strip of glistening fitzgerald-pink mucosa. Sections/Processing: Submitted en toto ??in 1 cassette labeled N1. O - Labeled/Fixative: Final left medial tongue base, fresh. Quantity/Size: Single, 2.5 x 0.2-0.4 cm. Tissue Description: Strip of glistening fitzgerald-pink mucosa. Sections/Processing: Submitted en toto ??in 1 cassette labeled O1. P - Labeled/Fixative: Final right tongue base, fresh. Quantity/Size: Single, 2.0 x 0.2-0.4 cm. Tissue Description: Strip of glistening fitzgerald-pink mucosa. Sections/Processing: Submitted en toto ??in 1 cassette labeled P1. Q - Labeled/Fixative: Final right superior pharynx, fresh. Quantity/Size: Single, 2.1 x 0.5 and 0.6 cm. Tissue Description: Glistening fitzgerald-pink mucosa. Sections/Processing: Inked, serially sectioned and entirely submitted in 2 cassettes labeled Q1-Q2. R - Labeled/Fixative: Left tonsil stitch = superior, fresh. Quantity/Size: Single, 2.4 x 1.5 x 0.7 cm. Tissue Description: Focally disrupted tonsil with a suture indicating superior.. Mucosa: Glistening, convoluted pinkish white Cut surface: Fitzgerald-pink, glistening with normal appearing cryptic architecture Ink: Inferior is inked black. Superior is inked Sections/Processing: And serially sectioned and sequentially submitted from anterior to posterior in 4 cassettes labeled R1-R4. ??ajw ?Frozen Section FROZEN SECTION DIAGNOSIS AFS1 - Interarytenoid, biopsy, ?? for frozen section: - Squamous mucosa with basal atypia, favor low-grade dysplasia. - Negative for invasive carcinoma. . FROZEN SECTION DIAGNOSIS 04/29/21 12:02 / DAK Electronically signed by: ?Chaim ALVARADO, Judy Rogers Verified: ??04/29/2021 12:03 ??Pathologist Performed at: ??-[facility] [place], [place] This intraoperative consultation should be interpreted as a preliminary diagnosis pending review of the entire specimen and special studies, if any. A final Surgical Pathology report will follow this preliminary Frozen Section report(s). 05/07/2021 4:08 PM EDT [facility] BILATERAL PALATINE TONSILS / Unknown 04/29/2021 11:38 AM EDT 04/29/2021 11:38 AM EDT LYMPH NODE SPECIMEN / Unknown 04/29/2021 11:38 AM EDT 04/29/2021 11:38 AM EDT LYMPH NODE SPECIMEN / Unknown 04/29/2021 11:38 AM EDT 04/29/2021 11:38 AM EDT LYMPH NODE SPECIMEN / Unknown 04/29/2021 11:38 AM EDT 04/29/2021 11:38 AM EDT LYMPH NODE SPECIMEN / Unknown 04/29/2021 11:38 AM EDT 04/29/2021 11:38 AM EDT LYMPH NODE SPECIMEN / Unknown 04/29/2021 11:38 AM EDT 04/29/2021 11:38 AM EDT LYMPH NODE SPECIMEN / Unknown 04/29/2021 11:38 AM EDT 04/29/2021 11:38 AM EDT LYMPH NODE SPECIMEN / Unknown 04/29/2021 11:38 AM EDT 04/29/2021 11:38 AM EDT LYMPH NODE SPECIMEN / Unknown 04/29/2021 11:38 AM EDT 04/29/2021 11:38 AM EDT LYMPH NODE SPECIMEN / Unknown 04/29/2021 11:38 AM EDT 04/29/2021 11:38 AM EDT LARYNGEAL STRUCTURE / Unknown 04/29/2021 11:38 AM EDT 04/29/2021 11:38 AM EDT Margin 04/29/2021 11:3 8 AM EDT 04/29/2021 11:38 AM EDT Margin 04/29/2021 11:3 8 AM EDT 04/29/2021 11:38 AM EDT MOUTH REGION STRUCTURE / Unknown 04/29/2021 11:38 AM EDT 04/29/2021 11:38 AM EDT MOUTH REGION STRUCTURE / Unknown 04/29/2021 11:38 AM EDT 04/29/2021 11:38 AM EDT MOUTH REGION STRUCTURE / Unknown 04/29/2021 11:38 AM EDT 04/29/2021 11:38 AM EDT BIOPSY SPECIMEN / Unknown 04/29/2021 11:38 AM EDT 04/29/2021 11:38 AM EDT BILATERAL PALATINE TONSILS / Unknown 04/29/2021 11:38 AM EDT 04/29/2021 11:38 AM EDT Mat Casper MD PATHOLOGY/CYTOLOGY ORDERABLES [facility] [place] [address] * Specimen to Pathology (04/29/2021 11:38 AM EDT) AP Specimen 04/29/2021 11:3 8 AM EDT 04/29/2021 11:38 AM EDT Narrative [facility] - 04/29/2021 11:38 AM EDT Specimen requisition ordered. ??Separate Pathology report to follow Mat Casper MD PATHOLOGY/CYTOLOGY ORDERABLES [facility] [place] [address] * COVID-19 PCR (04/29/2021 9:03 AM EDT) SARS-CoV-2 RNA (Rapid) Not Detected Not Detected [facility] Comment: This result should be interpreted in combination with the clinical observations, patient history and epidemiological information. For testing of asymptomatic individuals, assay performance characteristics and clinical utility have not been evaluated. Testing for SARS-CoV-2 (Severe acute respiratory syndrome coronavirus 2, formerly known as 2019 novel coronavirus or 2019-nCoV) to aid in the diagnosis of COVID-19 is performed using the Simplexa COVID-19 Direct Assay by [employer] as authorized by the FDA issued Emergency Use Authorization (EUA). This assay is intended for In-vitro Diagnostic (IVD) use with nasopharyngeal swabs collected from individuals meeting the CDC criteria for testing. The assay is performed based on the instructions for use and additional guidance provided by the FDA. Testing is performed in the Microbiology Laboratory within the Department of Pathology and Laboratory Medicine at [facility], certified under the Clinical Laboratory Improvement Amendments of 1988 (CLIA), 42 U.S.C. section 263a, to perform high complexity tests. Assay performance has been verified according to clinical laboratory regulatory requirements. Test results are provided above. A result of Not Detected indicates that the viral RNA target is not present but does not preclude SARS-CoV-2 infection. False negative results may occur if a specimen is improperly collected, transported or handled; if amplification inhibitors are present; or if inadequate numbers of viral particles are present in the specimen. A result of Detected suggests a current or recent infection and the patient is presumed to be infected. Positive and negative predictive values for this test are highly dependent on disease prevalence. A result of Invalid indicates the inability to conclusively determine the presence or absence of SARS-CoV-2 RNA in the sample which can be due to a variety of factors. Recollection is recommended in the case of an invalid result. CDC COVID-19 criteria for testing on human specimens and clinical management guidance information are available at the CDC Coronavirus Disease 2019 (COVID-19) webpage under Information for Healthcare Professionals (https://www.cdc.gov/coronavirus/2019-ncov/hcp/index.html). Additional information about this and other EUA tests can be found in provider and patient fact sheets at the following FDA website: https://www.fda.gov/medical-devices/hpmpayqvawz-ggcnsas-8877-sljpp-66-sgxrbubfl- use-a rxvavrwxtjtrm-fyqfesp-astubiw/ztvoh-usjkbftggyd-smao SARS-CoV-2 Source [employer] Swab [facility] Nasopharyngeal Swab 04/30/19 9:03 AM EDT 04/29/2021 12:27 PM EDT Comment:Symptoms->Surveillan ce Narrative Resulting Agency Comment Spec In Lab Mat Casper MD MICROBIOLOGY - GEN ERAL ORDERABLES Performing Organization Address [facility] Co de Phone Number [facility] [place] [address] * POCT Glucose (04/29/2021 8:36 AM EDT) Glucose, POC 165 65 - 199 mg/dL [facility] Comment: Supplemental ranges: <140 mg/dL before meals <180 mg/dL all other times of the day Blood 04/29/2021 8:36 AM EDT 04/29/2021 8:36 AM EDT Mat Casper MD POINT OF CARE TEST ORDERABLES Performing Organization Address [facility] Co de Phone Number [facility] [place] [address] * Type and Screen Validity (04/29/2021 7:49 AM EDT) T&S only valid at [facility]AT[facility] Comment:This Type and Screen result is only valid at the [facility] Blood 04/29/2021 7:49 AM EDT 04/29/2021 7:51 AM EDT Narrative Resulting Agency Comment Spec In Lab Mat Casper MD BLOOD BANK LAB ORD ERABLES [facility] [place] [address] * ABORH Recheck Status (04/29/2021 7:49 AM EDT) ABORH Type Recheck Completed [facility] Blood 04/29/2021 7:49 AM EDT 04/29/2021 7:51 AM EDT Narrative Resulting Agency Comment Spec In Lab Mat Casper MD BLOOD BANK LAB ORD ERABLES Performing Organization Address [facility]/ZIP Co de Phone Number [facility] [place] [address] * Antibody screen (04/29/2021 7:49 AM EDT) Ab Screen Interp Negative [facility] Expires at 2359 on: 05/02/2021 [facility] Blood 04/29/2021 7:49 AM EDT 04/29/2021 7:51 AM EDT Narrative Resulting Agency Comment Spec In Lab Mat Casper MD BLOOD BANK LAB ORD ERABLES Performing Organization Address [place]/[facility]/ZIP Co de Phone Number [facility] [place] [address] * ABO/Rh Typing (04/29/2021 7:49 AM EDT) ABORH Type A Pos [facility] Blood 04/29/2021 7:49 AM EDT 04/29/2021 7:51 AM EDT Narrative Resulting Agency Comment Spec In Lab Mat Casper MD BLOOD BANK LAB ORD ERABLES [facility] [place] [address] documented in this encounter Visit Diagnoses Diagnosis Laryngeal cancer Malignant neoplasm of larynx, unspecified site Dysphagia, unspecified type Status post laryngectomy Other postprocedural status Status post laryngectomy Other postprocedural status documented in this encounter Admitting Diagnoses Diagnosis Status post laryngectomy Other postprocedural status documented in this encounter Administered Medications Inactive Administered Medications - up to 3 most recent administrations Medication Order MAR Action Action Date Dose Rate Site acetaminophen (Tylenol) tablet 1,000 mg 1,000 mg, Oral, ONCE, 1 dose, On Wed04/29/21 at 0915, Administer with SIP of H2O only., Day of Surgery (Day of Procedure), Routine Given 04/29/2021 8:57 AM EDT 1,000 mg acetaminophen (Tylenol) tablet 650 mg 650 mg, Per NG tube, EVERY 4 HOURS SCHEDULED, First dose (after last modification) on Wed04/30/21 at 0000, Until Discontinued, Maximum dose of acetaminophen is 4000 mg from all sources in 24 hours. When ordered for pain, acetaminophen should be given even when other ordered pain medications are indicated. We do not order the liquid tylenol or ibuprofen because it has sorbitol and can contribute to diarrhea., Routine Given 05/07/2021 4:05 PM EDT 650 mg Given 05/07/2021 8:50 AM EDT 650 mg Given 05/07/2021 5:50 AM EDT 650 mg ampicillin-sulbactam (Unasyn) 3 g vial attach to sodium chloride 0.9% 100 mL Mini-Bag Plus 3 g, Intravenous, EVERY 8 HOURS, 15 doses, First dose on Wed04/29/21 at 1000, Last dose on Wed05/04/21 at 0200, Administer over 30 Minutes, Warning Vesicant/Irritant Medication , Indication for (Active or Suspected): Prophylaxis New Bag 05/04/2021 2:00 AM EDT 3 g 200 mL/ hr New Bag 05/03/2021 6:15 PM EDT 3 g 200 mL/hr New Bag 05/03/2021 10:00 AM EDT 3 g 200 mL/hr bisacodyL (Dulcolax) suppository 10 mg 10 mg, Rectal, DAILY PRN, Starting on Wed05/03/21 at 0843, Until Wed05/07/21 at 2100, Constipation, Give scheduled bowel meds, then start with Miralax, and then bisacodyl suppository in order to achieve one bowel movement every 48 hours without straining., Routine calcium carbonate (Tums) chewable tablet 1,000 mg 1,000 mg, Per NG tube, ONCE, 1 dose, On Christina 05/01/21 at 1345, Routine Given 05/01/2021 2:45 PM EDT 1,000 mg dextrose 10% infusion 250 mL, at 1,000 mL/hr, Intravenous, EVERY 30 MIN PRN, Starting on Wed04/29/21 at 2134, Until Wed05/07/21 at 2100, For BG 50-70 mg/dL: Oral treatment preferred: If able to drink, give 120 mL Juice or Regular (not diet) soda OR If NPO, give 15 gram glucose 40% oral gel massaged into buccal mucosa OR if unconscious or uncooperative, give 25 gram (250 mL) Dextrose 10% IV over 15 minutes per protocol OR, if no IV access, 1 mg Glucagon IM. For BG less than 50 mg/dL: Oral treatment preferred: If able to drink, give 240 mL Juice or Regular (not diet) soda OR If NPO, give 30 gram glucose 40% oral gel massaged in buccal mucosa OR if unconscious or uncooperative, give 25 gram (250 mL) Dextrose 10% IV over 15 minutes per protocol OR, if no IV access, 1 mg Glucagon IM. Recheck BG in 30 minutes. May repeat juice/soda, gel, dextrose or glucagon once per episode. For persistent hypoglycemia, consider longer-acting treatment for the duration of the active insulin. docusate sodium (Colace) (10 mg/mL) oral liquid 100 mg 100 mg, Oral, 2 TIMES DAILY, First dose on Wed04/30/21 at 0900, Until Discontinued, Routine Given 04/30/2021 8:33 PM EDT 100 mg docusate sodium (Colace) (10 mg/mL) oral liquid 100 mg 100 mg, Per NG tube, 2 TIMES DAILY, First dose (after last modification) on Wed05/02/21 at 2100, Until Discontinued, Routine Given 05/06/2021 9:43 AM EDT 100 mg Given 05/05/2021 8:40 PM EDT 100 mg Given 05/05/2021 8:39 AM EDT 100 mg enoxaparin (Lovenox) (40 mg/0.4 mL) subcutaneous injection 40 mg 40 mg, Subcutaneous, EVERY 12 HOURS SCHEDULED (2 times per day), First dose (after last modification) on Wed04/30/21 at 0900, Until Discontinued, Routine Given 05/07/2021 8:49 AM EDT 40 mg Given 05/06/2021 9:49 PM EDT 40 mg Given 05/06/2021 9:48 AM EDT 40 mg famotidine (Pepcid) (10 mg/mL) injection 20 mg 20 mg, Intravenous, EVERY 12 HOURS SCHEDULED (2 times per day), First dose on Wed04/29/21 at 2200, Until Discontinued Given 05/07/2021 11:34 AM EDT 20 mg Given 05/06/2021 9:59 PM EDT 20 mg Given 05/06/2021 9:47 AM EDT 20 mg furosemide (Lasix) tablet 20 mg 20 mg, Per NG tube, DAILY, First dose on Wed05/01/21 at 1845, Until Discontinued, Routine Given 05/07/2021 8:51 AM EDT 20 mg Given 05/06/2021 9:40 AM EDT 20 mg Given 05/05/2021 8:39 AM EDT 20 mg gabapentin (Neurontin) capsule 600 mg 600 mg, Oral, ONCE, 1 dose, On Wed04/29/21 at 0915, Administer with SIP of H2O only., Day of Surgery (Day of Procedure), Routine Given 04/29/2021 8:57 AM EDT 600 m g glucagon (Glucagen) (1 mg/mL) injection solution 1 mg 1 mg, Intramuscular, EVERY 30 MIN PRN, Starting on Wed04/29/21 at 2134, Until Wed05/07/21 at 2100, Low blood sugar, For BG 50-70 mg/dL: Oral treatment preferred: If able to drink, give 120 mL Juice or Regular (not diet) soda OR If NPO, give 15 gram glucose 40% oral gel massaged into buccal mucosa OR if unconscious or uncooperative, give 25 gram (250 mL) Dextrose 10% IV over 15 minutes per protocol OR, if no IV access, 1 mg Glucagon IM. For BG less than 50 mg/dL: Oral treatment preferred: If able to drink, give 240 mL Juice or Regular (not diet) soda OR If NPO, give 30 gram glucose 40% oral gel massaged in buccal mucosa OR if unconscious or uncooperative, give 25 gram (250 mL) Dextrose 10% IV over 15 minutes per protocol OR, if no IV access, 1 mg Glucagon IM. Recheck BG in 30 minutes. May repeat juice/soda, gel, dextrose or glucagon once per episode. For persistent hypoglycemia, consider longer-acting treatment for the duration of the active insulin., Routine glucose (GLUTOSE) 40% oral geL 15-30 g, Buccal, EVERY 30 MIN PRN, Starting on Wed04/29/21 at 2134, Until Wed05/07/21 at 2100, Low blood sugar, For BG 50-70 mg/dL: Oral treatment preferred: If able to drink, give 120 mL Juice or Regular (not diet) soda OR If NPO, give 15 gram glucose 40% oral gel massaged into buccal mucosa OR if unconscious or uncooperative, give 25 gram (250 mL) Dextrose 10% IV over 15 minutes per protocol OR, if no IV access, 1 mg Glucagon IM. For BG less than 50 mg/dL: Oral treatment preferred: If able to drink, give 240 mL Juice or Regular (not diet) soda OR If NPO, give 30 gram glucose 40% oral gel massaged in buccal mucosa OR if unconscious or uncooperative, give 25 gram (250 mL) Dextrose 10% IV over 15 minutes per protocol OR, if no IV access, 1 mg Glucagon IM. Recheck BG in 30 minutes. May repeat juice/soda, gel, dextrose or glucagon once per episode. For persistent hypoglycemia, consider longer-acting treatment for the duration of the active insulin. 1 tube contains 15 grams of glucose (net weight of tube = 37.5 grams., Routine hydrALAZINE (Apresoline) tablet 10 mg 10 mg, Per NG tube, ONCE, 1 dose, On Wed05/07/21 at 0630, Take with Food, Routine Given 05/07/2021 6:24 AM EDT 10 mg hydrALAZINE (Apresoline) tablet 10 mg 10 mg, Oral, ONCE, 1 dose, On Wed05/07/21 at 1715, Take with Food, Routine Given 05/07/2021 4:49 PM EDT 10 mg HYDROmorphone (Dilaudid) (0.5 mg/0.5 mL) injection syringe 0.2 mg 0.2 mg, Intravenous, EVERY 2 HOURS PRN, Starting on Wed04/29/21 at 2257, Until 05/03/21 at 0845, Pain, For breakthrough pain, Routine Given 05/03/2021 5:35 AM EDT 0.2 mg Given 05/01/2021 3:00 PM EDT 0.2 mg Given 04/29/2021 11:37 PM EDT 0.2 mg HYDROmorphone (Dilaudid) (2 mg/mL) multi-dose injection solution 0.2 mg 0.2 mg, Intravenous, EVERY 10 MIN PRN, Starting on Wed04/29/21 at 2018, Until Wed04/29/21 at 2240, Pain, For Mild to Moderate Pain (1-5 out of 10), Hold for respiratory rate less than 10 per minute. Maximum dose 3 mg over one hour including administrations in the OR. If multiple pain medications are ordered, start with HYDROmorphone or morphine and use fentaNYL for breakthrough pain, PACU Recovery, Routine Given 04/29/2021 8:55 PM EDT 0.2 mg HYDROmorphone (Dilaudid) (2 mg/mL) multi-dose injection solution 0.4 mg 0.4 mg, Intravenous, EVERY 10 MIN PRN, Starting on Wed04/29/21 at 2018, Until Wed04/29/21 at 2240, Pain, For Moderate to Severe Pain (6-10 out of 10), Hold for respiratory rate less than 10 per minute. Maximum dose 3 mg over one hour including administrations in the OR. If multiple pain medications are ordered, start with HYDROmorphone or morphine and use fentaNYL for breakthrough pain, PACU Recovery, Routine Given 04/29/2021 9:17 PM EDT 0.4 mg Given 04/29/2021 9:00 PM EDT 0.4 mg ibuprofen (Motrin) tablet 400 mg 400 mg, Per NG tube, EVERY 6 HOURS SCHEDULED, First dose on Christina 05/01/21 at 0630, Until Discontinued, Administer orally with milk or food to minimize GI irritation. Maximum dose of 3,200 mg from all sources in 24 hours. We do not order the liquid tylenol or ibuprofen because it has sorbitol and can contribute to diarrhea., Routine Given 05/01/2021 6:29 AM EDT 400 mg ibuprofen (Motrin) tablet 400 mg 400 mg, Oral, EVERY 6 HOURS SCHEDULED, First dose on 05/03/21 at 1200, Until Discontinued, Administer orally with milk or food to minimize GI irritation. Maximum dose of 3,200 mg from all sources in 24 hours. We do not order the liquid tylenol or ibuprofen because it has sorbitol and can contribute to diarrhea., Routine Given 05/07/2021 6:00 AM EDT 400 mg Given 05/06/2021 6:34 PM EDT 400 mg Given 05/06/2021 6:00 AM EDT 400 mg insulin glargine-ygfn (Semglee) (100 unit/mL) subcutaneous injection vial 15 Units 15 Units, Subcutaneous, DAILY, First dose on Wed04/30/21 at 1000, Until Discontinued, Routine Given 04/30/2021 11:16 AM EDT 15 Units insulin glargine-ygfn (Semglee) (100 unit/mL) subcutaneous injection vial 17 Units 17 Units, Subcutaneous, DAILY, First dose (after last modification) on Christina 05/01/21 at 0900, Until Discontinued, Routine Given 05/07/2021 8:34 AM EDT 17 Unit s Given 05/06/2021 9:37 AM EDT 17 Units Given 05/05/2021 8:52 AM EDT 17 Units insulin lispro (HumaLOG;Admelog) (100 unit/mL) subcutaneous injection vial 0-2 Units 0-2 Units, Subcutaneous, EVERY 4 HOURS SCHEDULED, First dose on Wed04/30/21 at 1245, Until Discontinued, For Peptamen 1.5 tube feed - 188 grams of carbohydrate per 1000 cc HOLD if tube feed not running HOLD if BG less than 70 Based on 1:16 I:C ratio TO COVER THE NEXT 4 HOURS OF TUBE FEEDS 10 -19ml per hour give 0 units every 4 hours 20-39 ml per hour give 1 units every 4 hours 40-55 ml per hour give 2 units every 4 hours If greater than 55ml per hour or change in tube feed call for new orders., Routine Given 05/01/2021 12:11 PM EDT 2 Units Given 05/01/2021 8:27 AM EDT 2 Units Given 05/01/2021 3:23 AM EDT 2 Units insulin lispro (HumaLOG;Admelog) (100 unit/mL) subcutaneous injection vial 0-8 Units 0-8 Units, Subcutaneous, EVERY 4 HOURS SCHEDULED, First dose on Christina 05/01/21 at 1345, Until Discontinued, For Impact Peptide tube feed - 140 grams of carbohydrate per 1000 cc HOLD if tube feed not running HOLD if BG less than 70 Based on 1:16 I:C ratio TO COVER THE NEXT 4 HOURS OF TUBE FEEDS 10 -19ml per hour give 0 units every 4 hours 20-49 ml per hour give 1 units every 4 hours 50-63 ml per hour give 2 units every 4 hours If greater than 63 ml/hr or change in tube feed call for new orders., Routine Given 05/02/2021 12:14 AM EDT 2 Units Given 05/01/2021 9:00 PM EDT 2 Units Given 05/01/2021 3:23 PM EDT 2 Units insulin lispro (HumaLOG;Admelog) (100 unit/mL) subcutaneous injection vial 0-8 Units 0-8 Units, Subcutaneous, 3 TIMES DAILY WITH MEALS, First dose on Wed05/07/21 at 1200, Until Discontinued, [employer] Give 1 unit for every 10 grams carbohydrate. Hold if not eating or if BG less than 70 mg/dL., Routine Given 05/07/2021 12:52 PM EDT 2 Units insulin lispro (HumaLOG;Admelog) (100 unit/mL) subcutaneous injection vial 1-6 Units 1-6 Units, Subcutaneous, EVERY 4 HOURS SCHEDULED, First dose on Wed04/30/21 at 0000, Until Discontinued, CORRECTION BOLUS [1-6 Units] Moderate Sliding Scale (BG in mg/dL): Correction factor 20 (1 unit of insulin is expected to drop the glucose 20 mg/dL) BG 140 - 160 Give 1 unit BG 161 - 180 Give 2 units BG 181 - 200 Give 3 units BG 201 - 220 Give 4 units BG 221 - 240 Give 5 units BG greater than 240, give 6 units and recheck BG in 2 hours. - If recheck BG is LESS than 240, give no insulin and resume schedule. - If recheck BG is GREATER than 240, give 6 units and repeat BG in 2 hours (no more than 3 times) & call for new insulin orders. DO NOT hold if NPO, unless specifically directed to do so by written order. Per Blood Glucose Monitoring Policy, re-check a BG of > 240 mg/dL in 2 hours., Routine Given 04/30/2021 1:29 AM EDT 6 Units Given 04/29/2021 11:37 PM EDT 6 Units insulin lispro (HumaLOG;Admelog) (100 unit/mL) subcutaneous injection vial 1-6 Units 1-6 Units, Subcutaneous, EVERY 4 HOURS SCHEDULED, First dose on Wed04/30/21 at 0500, Until Discontinued, CORRECTION BOLUS [1-6 Units] Moderate Sliding Scale (BG in mg/dL): Correction factor 20 (1 unit of insulin is expected to drop the glucose 20 mg/dL) BG 140 - 160 Give 1 unit BG 161 - 180 Give 2 units BG 181 - 200 Give 3 units BG 201 - 220 Give 4 units BG 221 - 240 Give 5 units BG greater than 240, give 6 units and recheck BG in 2 hours. - If recheck BG is LESS than 240, give no insulin and resume schedule. - If recheck BG is GREATER than 240, give 6 units and repeat BG in 2 hours (no more than 3 times) & call for new insulin orders. DO NOT hold if NPO, unless specifically directed to do so by written order. Per Blood Glucose Monitoring Policy, re-check a BG of > 240 mg/dL in 2 hours., Routine Given 05/07/2021 3:59 PM EDT 5 Units Given 05/07/2021 12:06 PM EDT 6 Units Given 05/07/2021 8:32 AM EDT 3 Units insulin lispro (HumaLOG;Admelog) (100 unit/mL) subcutaneous injection vial 5 Units 5 Units, Subcutaneous, USER SPECIFIED (4 times per day), First dose (after last modification) on Wed05/02/21 at 1300, Until Discontinued, For Impact Peptide tube feed - 140 grams of carbohydrate per 1000' 5 units for the bolus of 375 ml at the designated times, Routine Given 05/05/2021 8:43 PM EDT 5 Units Given 05/05/2021 4:25 PM EDT 5 Units Given 05/05/2021 12:13 PM EDT 5 Units insulin lispro (HumaLOG;Admelog) (100 unit/mL) subcutaneous injection vial 7 Units 7 Units, Subcutaneous, USER SPECIFIED (4 times per day), First dose (after last modification) on Wed05/06/21 at 0915, Until Discontinued, For Impact Peptide tube feed - 140 grams of carbohydrate per 1000ml Give 7 units for the bolus of 375 ml at the designated times, Routine Given 05/06/2021 9:31 PM EDT 7 Units Given 05/06/2021 6:42 PM EDT 7 Units Given 05/06/2021 1:40 PM EDT 7 Units ipratropium-albuteroL (Duoneb) 0.5 mg-3 mg(2.5 mg base)/3 mL nebulizer solution 3 mL 3 mL, Nebulization, 2 TIMES DAILY, First dose on Wed05/01/21 at 0900, Until Discontinued, Routine Given 05/01/2021 9:06 PM EDT 3 mLs Given 05/01/2021 8:18 AM EDT 3 mLs ipratropium-albuteroL (Duoneb) 0.5 mg-3 mg(2.5 mg base)/3 mL nebulizer solution 3 mL 3 mL, Nebulization, 4 TIMES DAILY, First dose (after last modification) on Wed05/02/21 at 0900, Until Discontinued, Routine Given 05/07/2021 2:42 PM EDT 3 mLs Given 05/07/2021 8:48 AM EDT 3 mLs Given 05/06/2021 5:01 PM EDT 3 mLs labetaloL (Normodyne) (5 mg/mL) injection solution 10 mg 10 mg, Intravenous, EVERY 4 HOURS PRN, 2 doses, Starting on Wed05/02/21 at 0532, Until Wed05/05/21 at 0436, High Blood Pressure, for SBP greater than 160, hold if HR <50, Routine Given 05/05/2021 4:3 6 AM EDT 10 mg Given 05/04/2021 9:13 AM EDT 10 mg labetaloL (Normodyne) (5 mg/mL) injection solution 10 mg 10 mg, Intravenous, EVERY 2 HOURS PRN, Starting on Wed05/05/21 at 0532, Until Wed05/07/21 at 2100, High Blood Pressure, for SBP greater than 160, hold if HR <50. If SBP >160 after two doses, page [id number]., Routine Given 05/07/2021 4:27 PM EDT 10 mg Given 05/07/2021 3:53 PM EDT 10 mg Given 05/07/2021 12:00 PM EDT 10 mg lactated ringers infusion 1,000 mL, at 100 mL/hr, Intravenous, CONTINUOUS, Starting on Wed04/29/21 at 0915, Until Wed04/29/21 at 2240, Day of Surgery (Day of Procedure) New Bag 04/29/2021 1:00 PM EDT Restarted 04/29/2021 11:49 AM EDT New Bag 04/29/2021 8:46 AM EDT 1,000 mLs 100 mL/hr lactulose (Chronulac) (0.67 gram/mL) oral liquid 10 g 10 g, Oral, 2 TIMES DAILY PRN, Starting on Wed05/03/21 at 0844, Until Wed05/07/21 at 2100, Constipation, Routine lactulose (Chronulac) (0.67 gram/mL) oral liquid 20 g 20 g, Per NG tube, 2 TIMES DAILY, 2 doses, First dose on Wed05/02/21 at 2100, Last dose on Wed05/03/21 at 0900, Routine Given 05/02/2021 8:29 PM EDT 20 g lidocaine (Lidoderm) 5% patch 1 patch 1 patch, Transdermal, EVERY 24 HOURS, First dose on 05/03/21 at 0900, Until Discontinued, Apply patch(es) for 12 hours, and then remove for 12 hours., Routine Patch Applied 05/05/2021 8:38 AM EDT 1 patch 06- Back Upper (Right) Patch Applied 05/04/2021 8:07 AM EDT 1 patch 06- Back Upper (Right) Patch Applied 05/03/2021 11:56 AM EDT 1 patch 06- Back Upper (Right) lidocaine (Lidoderm) topical patch REMOVAL Transdermal, EVERY 24 HOURS, First dose on 05/03/21 at 2100, Until Discontinued, Remove lidocaine 5% patch lisinopriL (Zestril) tablet 10 mg 10 mg, Oral, DAILY, First dose on Christina 05/01/21 at 1745, Until Discontinued, Routine Given 05/01/2021 5:38 PM EDT 10 mg lisinopriL (Zestril) tablet 10 mg 10 mg, Per NG tube, DAILY, First dose (after last modification) on Wed05/02/21 at 0900, Until Discontinued, Routine Given 05/07/2021 8:51 AM EDT 10 mg Given 05/06/2021 9:40 AM EDT 10 mg Given 05/05/2021 8:38 AM EDT 10 mg magnesium oxide (Mag-Ox) tablet 400 mg 400 mg, Per NG tube, 2 TIMES DAILY, First dose on Wed04/30/21 at 0900, Until Discontinued, Routine Given 05/01/2021 9:07 PM EDT 400 mg Given 05/01/2021 8:20 AM EDT 400 mg Given 04/30/2021 8:33 PM EDT 400 mg magnesium sulfate 2 g in sterile water 50 mL infusion 2 g, Intravenous, EVERY 2 HOURS, 2 doses, First dose on Wed05/02/21 at 1300, Last dose on Wed05/02/21 at 1500, Administer over 120 Minutes New Bag 05/02/2021 2:06 PM EDT 2 g 25 mL/hr New Bag 05/02/2021 12:32 PM EDT 2 g 25 mL/hr oxyCODONE (Roxicodone) (1 mg/mL) oral liquid 5-10 mg 5-10 mg, Per NG tube, EVERY 3 HOURS PRN, Starting on Wed04/29/21 at 2246, Until Wed05/03/21 at 1055, Pain, Give 5 mg for pain 1-5; GIve 10 mg for pain 6-10, Routine Given 05/03/2021 8:25 AM EDT 10 mg Given 05/03/2021 12:13 AM EDT 10 mg Given 05/02/2021 8:30 PM EDT 10 mg oxyCODONE (Roxicodone) (1 mg/mL) oral liquid 5-10 mg 5-10 mg, Per NG tube, EVERY 4 HOURS PRN, Starting on Wed05/03/21 at 1100, Until Wed05/07/21 at 2100, Pain, Give 5 mg for pain 1-5; GIve 10 mg for pain 6-10, Routine Given 05/04/2021 9:30 PM EDT 5 mg Given 05/04/2021 5:32 PM EDT 10 mg Given 05/04/2021 8:06 AM EDT 10 mg pantothenic Ac-Min Oil-Pet,Hyd (Aquaphor) 41 % ointment 1 each 1 each, Topical (Top), 2 TIMES DAILY, First dose on Wed04/29/21 at 2345, Until Discontinued, Clean incision with sterile saline or half strength hydrogen peroxide and apply aquaphor incision twice daily. Given 05/06/2021 9:50 PM EDT 1 each Given 05/06/2021 9:00 AM EDT 1 each Given 05/04/2021 9:00 PM EDT 1 each polyethylene glycoL (Miralax) packet 17 g 17 g, Per NG tube, DAILY, First dose (after last modification) on Wed05/02/21 at 1700, Until Discontinued, Hold if BM within 24 hrs., Routine Given 05/05/2021 8:38 AM EDT 17 g Given 05/04/2021 8:07 AM EDT 17 g Given 05/03/2021 8:19 AM EDT 17 g potassium bicarbonate (Effer-K) effervescent tablet 40 mEq 40 mEq, Oral, ONCE, On 05/04/21 at 0600, 1 dose, Do not crush or chew, tablet is meant for dissolution in liquid prior to consumption. 10 mEq tablets: dissolve in 60 - 90 mL of cold water (flavored tablets) or juice (unflavored tablets) 20 mEq tablets: dissolve in 90 - 120 mL of cold water (flavored tablets) or juice (unflavored tablets) Given 05/04/2021 6:00 AM EDT 40 mEq potassium chloride ER (K-Dur/Klor-Con) tablet 40 mEq 40 mEq, Oral, ONCE, 1 dose, On 05/04/21 at 0915, 20 mEq tablet may be dissolved in water for administration, Routine Given 05/04/2021 11:11 AM EDT 40 mEq potassium, sodium phosphates (Neutra-Phos) 280-160-250 mg oral packet 3 g 3 g, Oral, ONCE, 1 dose, On Christina 05/01/21 at 0630, Take with full glass of water, Routine Given 05/01/2021 6:29 AM EDT 3 g potassium, sodium phosphates (Neutra-Phos) 280-160-250 mg oral packet 3 g 3 g, Per NG tube, ONCE, 1 dose, On Wed05/02/21 at 1300, Take with full glass of water, Routine Given 05/02/2021 12:32 PM EDT 3 g protein powder 2 Scoop, Per NG tube, 3 TIMES DAILY, First dose on Wed04/30/21 at 1500, Until Discontinued, Routine Given 05/01/2021 9:00 AM EDT 2 Scoops Given 04/30/2021 9:00 PM EDT 2 Scoops Given 04/30/2021 3:59 PM EDT 2 Scoops protein powder 2 Scoop, Per NG tube, 2 TIMES DAILY, First dose on Wed05/01/21 at 1345, Until Discontinued, Routine Given 05/06/2021 9:00 PM EDT 2 Scoops Given 05/06/2021 9:00 AM EDT 2 Scoops Given 05/05/2021 9:00 PM EDT 2 Scoops sennosides (Senokot) (1.76 mg/mL) oral liquid 17.6 mg 17.6 mg, Oral, 2 TIMES DAILY, First dose on Wed04/30/21 at 0900, Until Discontinued, Routine Given 04/30/2021 8:33 PM EDT 17.6 mg sennosides (Senokot) (1.76 mg/mL) oral liquid 17.6 mg 17.6 mg, Per NG tube, 2 TIMES DAILY, First dose (after last modification) on Wed05/01/21 at 0900, Until Discontinued, Routine Given 05/06/2021 9:43 AM EDT 17.6 mg Given 05/05/2021 8:39 PM EDT 17.6 mg Given 05/05/2021 8:38 AM EDT 17.6 mg sodium chloride 0.9 % (flush) (BD PosiFlush Normal Saline 0.9) flush 5 mL 5 mL, Intravenous, 2 TIMES DAILY, First dose on Wed04/29/21 at 2345, Until Discontinued, Routine Given 05/07/2021 9:00 AM EDT 5 mLs Given 05/06/2021 9:50 PM EDT 5 mLs Given 05/06/2021 9:00 AM EDT 5 mLs sodium chloride 0.9% infusion 100 mL/hr, Intravenous, CONTINUOUS, Starting on Wed04/29/21 at 2045, Until Wed05/02/21 at 0631 New Bag 05/02/2021 12:07 AM EDT 100 mL/hr 100 mL/hr New Bag 05/01/2021 1:50 AM EDT 100 mL/hr 100 mL/hr Rate/Dose Verify 04/30/2021 6:00 PM EDT 100 mL/hr 100 mL/ hr tube feeding diet 240 mL, Per NG tube, at 10 mL/hr, CONTINUOUS, Starting on Wed04/30/21 at 0700, Until Wed04/30/21 at 1138, Administer flushes and check residuals per policy, Which tube feed product? Nutren 1.5, Strength: FULL Strength, Initial Rate: (mL/hr): 10, Goal final rate: (mL/hr): 10, Do you want to Hold Tube Feed? No New Bag 04/30/2021 7:00 AM EDT 240 mLs 10 mL/hr tube feeding diet 1,320 mL, Per NG tube, at 55 mL/hr, CONTINUOUS, Starting on Wed04/30/21 at 1230, Until Wed05/01/21 at 1254, Administer flushes and check residuals per policy, Which tube feed product? Peptamen 1.5, Initial Rate: (mL/hr): 25, Advance by: (mL): 10, Advance every: Q4H, Goal final rate: (mL/hr): 55 Rate/Dose Change 05/01/2021 5:45 AM EDT 55 mL/hr New Bag 05/01/2021 12:03 AM EDT 1,320 mLs 45 mL/hr Rate/Dose Change 04/30/2021 7:46 PM EDT 35 mL/h r tube feeding diet 1,512 mL, Per NG tube, at 63 mL/hr, CONTINUOUS, Starting on Wed05/01/21 at 1345, Until Wed05/01/21 at 1708, Administer flushes and check residuals per policy, Which tube feed product? Impact Peptide 1.5, Goal final rate: (mL/hr): 63 New Bag 05/01/2021 1:45 PM EDT 1,512 mLs 63 mL/hr tube feeding diet 375 mL, Per NG tube, at 375 mL/hr, 4 TIMES DAILY, First dose (after last modification) on Christina 05/01/21 at 1800, Until Discontinued, Administer flushes and check residuals per policy, Which tube feed product? Impact Peptide 1.5 New Bag 05/06/2021 9:00 PM EDT 375 mLs 375 mL/hr New Bag 05/06/2021 5:00 PM EDT 375 mLs 375 mL/hr New Bag 05/06/2021 1:00 PM EDT 375 mLs 375 mL/hr documented in this encounter Active and Recently Administered Medications Times are shown in EDT. Scheduled Medication Order 05/05/2021 05/06/2021 05/07/2021 acetaminophen (Tylenol) tablet 650 mg 650 mg, Per NG tube, EVERY 4 HOURS SCHEDULED, First dose (after last modification) on Wed04/30/21 at 0000, Until Discontinued, Maximum dose of acetaminophen is 4000 mg from all sources in 24 hours. When ordered for pain, acetaminophen should be given even when other ordered pain medications are indicated. We do not order the liquid tylenol or ibuprofen because it has sorbitol and can contribute to diarrhea., Routine 0000 (Given - Provider: Arielle Ramey RN)0427 (Given - Provider: Margarita Rivera RN)0839 (Given - Provider: Mica Montemayor RN)1208 (Not Given - Provider: Mica Montemayor RN - Reason: Patient/family refused)1600 (Not Given - Provider: Mica Montemayor RN - Reason: Patient/family refused)1938 (Given - Provider: Margarita Rivera RN) 0000 (Not Given - Provider: Jerry Puckett RN - Reason: Patient/family refused)0500 (Given - Provider: Jerry Puckett RN)0940 (Given - Provider: Octavia Arteaga, NICKIE)1129 (Given - Provider: Lydia Heart RN)1834 (Given - Provider: Octavia Arteaga, NICKIE)2000 (Not Given - Provider: Thaddeus Sabillon RN - Reason: Patient/family refused) 0000 (Not Given - Provider: Thaddeus Sabillon RN - Reason: Patient/family refused)0550 (Given - Provider: Thaddeus Sabillon RN)0850 (Given - Provider: Octavia Arteaga RN)1200 (Not Given - Provider: Octavia Arteaga RN - Reason: Patient/family refused)1605 (Given - Provider: Octavia Arteaga RN) docusate sodium (Colace) (10 mg/mL) oral liquid 100 mg 100 mg, Per NG tube, 2 TIMES DAILY, First dose (after last modification) on Wed05/02/21 at 2100, Until Discontinued, Routine 0839 (Given - Provider: Mica Montemayor RN)2039 (Given - Provider: Margarita Rivera RN) 0943 (Given - Provider: Octavia Arteaga RN)214 (Not Given - Provider: Thaddeus Sabillon RN - Reason: Patient/family refused) 0900 (Not Given - Provider: Octavia Arteaga RN - Reason: Patient/family refused) enoxaparin (Lovenox) (40 mg/0.4 mL) subcutaneous injection 40 mg 40 mg, Subcutaneous, EVERY 12 HOURS SCHEDULED (2 times per day), First dose (after last modification) on Wed04/30/21 at 0900, Until Discontinued, Routine 0837 (Given - Provider: Mica Montemayor RN)2039 (Given - Provider: Margarita Rivera RN) 0948 (Given - Provider: Octavia Arteaga RN)214 (Given - Provider: Thaddeus Sabillon RN) 0849 (Given - Provider: Octavia Arteaga RN) famotidine (Pepcid) (10 mg/mL) injection 20 mg 20 mg, Intravenous, EVERY 12 HOURS SCHEDULED (2 times per day), First dose on Wed04/29/21 at 2200, Until Discontinued 0839 (Given - Provider: Mica Montemayor RN)2039 (Given - Provider: Margarita Rivera RN) 0947 (Given - Provider: Octavia Arteaga RN)215 (Given - Provider: Thaddeus Sabillon RN) 1134 (Given - Provider: Yarely Pantoja RN) furosemide (Lasix) tablet 20 mg 20 mg, Per NG tube, DAILY, First dose on Christina 05/01/21 at 1845, Until Discontinued, Routine 0839 (Given - Provider: Mica Montemayor RN) 0940 (Given - Provider: Octavia Arteaga RN) 0851 (Given - Provider: Octavia Arteaga, NICKIE) hydrALAZINE (Apresoline) tablet 10 mg (COMPLETED) 10 mg, Per NG tube, ONCE, 1 dose, On Wed05/07/21 at 0630, Take with Food, Routine 0624 (Given - Provider: Thaddeus Sabillon RN) hydrALAZINE (Apresoline) tablet 10 mg (COMPLETED) 10 mg, Oral, ONCE, 1 dose, On 05/07/21 at 1715, Take with Food, Routine 1649 (Given - Provider: Octavia Arteaga RN) ibuprofen (Motrin) tablet 400 mg 400 mg, Oral, EVERY 6 HOURS SCHEDULED, First dose on 05/03/21 at 1200, Until Discontinued, Administer orally with milk or food to minimize GI irritation. Maximum dose of 3,200 mg from all sources in 24 hours. We do not order the liquid tylenol or ibuprofen because it has sorbitol and can contribute to diarrhea., Routine 0000 (Given - Provider: Arielle Ramey RN)0600 (Given - Provider: Arielle Ramey RN)1208 (Not Given - Provider: Mica Montemayor RN - Reason: Patient/family refused)1800 (Not Given - Provider: Mica Montemayor RN - Reason: Patient/family refused) 0000 (Not Given - Provider: Jerry Puckett RN - Reason: Patient/family refused)0600 (Given - Provider: Jerry Puckett RN)1130 (Not Given - Provider: Lydia Heart RN - Reason: Patient/family refused)1834 (Given - Provider: Octavia Arteaga RN) 0000 (Not Given - Provider: Thaddeus Sabillon RN - Reason: Patient/family refused)0600 (Given - Provider: Thaddeus Sabillon RN)1200 (Not Given - Provider: Octavia Arteaga RN - Reason: Patient/family refused)1800 (Due) insulin glargine-ygfn (Semglee) (100 unit/mL) subcutaneous injection vial 17 Units 17 Units, Subcutaneous, DAILY, First dose (after last modification) on Wed05/01/21 at 0900, Until Discontinued, Routine 0852 (Given - Provider: Mica Montemayor RN) 0937 (Given - Provider: Octavia Arteaga, NICKIE) 0834 (Given - Provider: Octavia Arteaga, NICKIE) insulin lispro (HumaLOG;Admelog) (100 unit/mL) subcutaneous injection vial 0-8 Units 0-8 Units, Subcutaneous, 3 TIMES DAILY WITH MEALS, First dose on Wed05/07/21 at 1200, Until Discontinued, [employer] Give 1 unit for every 10 grams carbohydrate. Hold if not eating or if BG less than 70 mg/dL., Routine 1252 (Given - Provider: Yarely Pantoja RN)1700 (Due) insulin lispro (HumaLOG;Admelog) (100 unit/mL) subcutaneous injection vial 1-6 Units(Linked Group 1) 1-6 Units, Subcutaneous, EVERY 4 HOURS SCHEDULED, First dose on Wed04/30/21 at 0500, Until Discontinued, CORRECTION BOLUS [1-6 Units] Moderate Sliding Scale (BG in mg/dL): Correction factor 20 (1 unit of insulin is expected to drop the glucose 20 mg/dL) BG 140 - 160 Give 1 unit BG 161 - 180 Give 2 units BG 181 - 200 Give 3 units BG 201 - 220 Give 4 units BG 221 - 240 Give 5 units BG greater than 240, give 6 units and recheck BG in 2 hours. - If recheck BG is LESS than 240, give no insulin and resume schedule. - If recheck BG is GREATER than 240, give 6 units and repeat BG in 2 hours (no more than 3 times) & call for new insulin orders. DO NOT hold if NPO, unless specifically directed to do so by written order. Per Blood Glucose Monitoring Policy, re-check a BG of > 240 mg/dL in 2 hours., Routine 0000 (Given - Provider: Arielle Ramey RN)0400 (Not Given - Provider: Margarita Rivera RN - Reason: Order parameters not met)0800 (Not Given - Provider: Mica Montemayor RN - Reason: Order parameters not met)1213 (Given - Provider: Mica Montemayor RN)1625 (Given - Provider: Mica Montemayor RN)1936 (Given - Provider: Margarita Rivera RN)2346 (Given - Provider: Margarita Rivera RN) 0430 (Given - Provider: Jerry Puckett RN)0935 (Given - Provider: Octavia Arteaga RN)1140 (Given - Provider: Lydia Heart RN)1655 (Given - Provider: Octavia Arteaga RN)2126 (Given - Provider: Thaddeus Sabillon RN) 0000 (Given - Provider: Thaddeus Sabillon RN)0542 (Given - Provider: Thaddeus Sabillon RN)0832 (Given - Provider: Octavia Arteaga RN)1206 (Given - Provider: Octavia Arteaga RN)1559 (Given - Provider: Octavia Arteaga RN) insulin lispro (HumaLOG;Admelog) (100 unit/mL) subcutaneous injection vial 5 Units (CANCELED) 5 Units, Subcutaneous, USER SPECIFIED (4 times per day), First dose (after last modification) on Wed05/02/21 at 1300, Until Discontinued, For Impact Peptide tube feed - 140 grams of carbohydrate per 1000' 5 units for the bolus of 375 ml at the designated times, Routine 0854 (Given - Provider: Mica Montemayor RN)1213 (Given - Provider: Mica Montemayor RN)1625 (Given - Provider: iMca Montemayor RN)2043 (Given - Provider: Margarita Rivera RN) insulin lispro (HumaLOG;Admelog) (100 unit/mL) subcutaneous injection vial 7 Units (CANCELED) 7 Units, Subcutaneous, USER SPECIFIED (4 times per day), First dose (after last modification) on Wed05/06/21 at 0915, Until Discontinued, For Impact Peptide tube feed - 140 grams of carbohydrate per 1000ml Give 7 units for the bolus of 375 ml at the designated times, Routine 1140 (Given - Provider: Lydia Heart RN - Comment: given with TF initiation)1340 (Given - Provider: Octavia Arteaga RN)1842 (Given - Provider: Octavia Arteaga RN)2131 (Given - Provider: Thaddeus Sabillon RN) 0900 (Not Given - Provider: Octavia Arteaga RN - Reason: See comment - Comment: tube feeds dc) ipratropium-albuteroL (Duoneb) 0.5 mg-3 mg(2.5 mg base)/3 mL nebulizer solution 3 mL 3 mL, Nebulization, 4 TIMES DAILY, First dose (after last modification) on Wed05/02/21 at 0900, Until Discontinued, Routine 0838 (Given - Provider: Mica Montemayor RN)1209 (Given - Provider: Mica Montemayor RN)1627 (Given - Provider: Mica Montemayor RN)2039 (Given - Provider: Margarita Rivera RN) 1016 (Given - Provider: Octavia Arteaga RN)1335 (Given - Provider: Octavia Arteaga RN)1701 (Given - Provider: Octavia Arteaga RN)2149 (Not Given - Provider: Thaddeus Sabillon RN - Reason: Patient/family refused) 0848 (Given - Provider: Octavia Arteaga RN)1442 (Given - Provider: Octavia Arteaga RN)1700 (Not Given - Provider: Octavia Arteaga RN - Reason: Patient/family refused) lidocaine (Lidoderm) 5% patch 1 patch(Linked Group 2) 1 patch, Transdermal, EVERY 24 HOURS, First dose on Wed05/03/21 at 0900, Until Discontinued, Apply patch(es) for 12 hours, and then remove for 12 hours., Routine 0838 (Patch Applied - Provider: Mica Montemayor RN) 0900 (Not Given - Provider: Octavia Arteaga RN - Reason: Patient/family refused) 0900 (Not Given - Provider: Octavia Arteaga RN - Reason: Patient/family refused) lidocaine (Lidoderm) topical patch REMOVAL(Linked Group 2) Transdermal, EVERY 24 HOURS, First dose on Wed05/03/21 at 2100, Until Discontinued, Remove lidocaine 5% patch 2099 (Patch Not Removed (add comment) - Provider: Cj Johnson RN - Comment: not present) 2099 (Patch Not Removed (add comment) - Provider: Thaddeus Sabillon RN - Comment: not applied) lisinopriL (Zestril) tablet 10 mg 10 mg, Per NG tube, DAILY, First dose (after last modification) on Wed05/02/21 at 0900, Until Discontinued, Routine 0838 (Given - Provider: Mica Montemayor RN) 0940 (Given - Provider: Octavia Arteaga, NICKIE) 0851 (Given - Provider: Octavia Arteaga RN) pantothenic Ac-Min Oil-Pet,Hyd (Aquaphor) 41 % ointment 1 each 1 each, Topical (Top), 2 TIMES DAILY, First dose on Wed04/29/21 at 2345, Until Discontinued, Clean incision with sterile saline or half strength hydrogen peroxide and apply aquaphor incision twice daily. 0900 (Due)2100 (Due) 0900 (Given - Provider: Octavia Arteaga RN)2150 (Given - Provider: Thaddeus Sabillon RN) 1130 (Not Given - Provider: Octavia Arteaga RN - Reason: See comment - Comment: elysia out) polyethylene glycoL (Miralax) packet 17 g 17 g, Per NG tube, DAILY, First dose (after last modification) on Wed05/02/21 at 1700, Until Discontinued, Hold if BM within 24 hrs., Routine 0838 (Given - Provider: Mica Montemayor RN) 0900 (Not Given - Provider: Octavia Arteaga RN - Reason: Patient/family refused) 0900 (Not Given - Provider: Octavia Arteaga RN - Reason: Patient/family refused) protein powder (CANCELED) 2 Scoop, Per NG tube, 2 TIMES DAILY, First dose on Wed05/01/21 at 1345, Until Discontinued, Routine 0900 (Given - Provider: Mica Montemayor RN)2100 (Given - Provider: Cj Johnson RN) 0900 (Given - Provider: Octavia Arteaga RN)2100 (Given - Provider: Thaddeus Sabillon, NICKIE) sennosides (Senokot) (1.76 mg/mL) oral liquid 17.6 mg 17.6 mg, Per NG tube, 2 TIMES DAILY, First dose (after last modification) on Wed05/01/21 at 0900, Until Discontinued, Routine 0838 (Given - Provider: Mica Montemayor RN)2038 (Given - Provider: Margarita Rivera RN) 0943 (Given - Provider: Octavia Arteaga RN)2148 (Not Given - Provider: Thaddeus Sabillon RN - Reason: Patient/family refused) 0900 (Not Given - Provider: Octavia Arteaga RN - Reason: Patient/family refused) sodium chloride 0.9 % (flush) (BD PosiFlush Normal Saline 0.9) flush 5 mL 5 mL, Intravenous, 2 TIMES DAILY, First dose on Wed04/29/21 at 2345, Until Discontinued, Routine 0903 (Given - Provider: Mica Montemayor RN)2100 (Given - Provider: Cj Johnson, NICKIE) 0900 (Given - Provider: Octavia Arteaga RN)2150 (Given - Provider: Thaddeus Sabillon RN) 0900 (Given - Provider: Octavia Arteaga RN) tube feeding diet (CANCELED) 375 mL, Per NG tube, at 375 mL/hr, 4 TIMES DAILY, First dose (after last modification) on Wed05/01/21 at 1800, Until Discontinued, Administer flushes and check residuals per policy, Which tube feed product? Impact Peptide 1.5 0900 (New Bag - Provider: Mica Montemayor RN)1300 (New Bag - Provider: Mica Montemayor RN)1700 (New Bag - Provider: Mica Montemayor RN)2100 (New Bag - Provider: Cj Johnson, NICKIE) 1139 (New Bag - Provider: Lydia Heart RN - Comment: no pump available)1300 (New Bag - Provider: Octavia Arteaga RN)1700 (New Bag - Provider: Octavia Arteaga, NICKIE)2100 (New Bag - Provider: Thaddeus Sabillon RN) PRN Medication Order 05/05/2021 05/06/2021 05/07/2021 bisacodyL (Dulcolax) suppository 10 mg 10 mg, Rectal, DAILY PRN, Starting on 05/03/21 at 0843, Until Wed05/07/21 at 2100, Constipation, Give scheduled bowel meds, then start with Miralax, and then bisacodyl suppository in order to achieve one bowel movement every 48 hours without straining., Routine dextrose 10% infusion(Linked Group 3) 250 mL, at 1,000 mL/hr, Intravenous, EVERY 30 MIN PRN, Starting on Wed04/29/21 at 2134, Until Wed05/07/21 at 2100, For BG 50-70 mg/dL: Oral treatment preferred: If able to drink, give 120 mL Juice or Regular (not diet) soda OR If NPO, give 15 gram glucose 40% oral gel massaged into buccal mucosa OR if unconscious or uncooperative, give 25 gram (250 mL) Dextrose 10% IV over 15 minutes per protocol OR, if no IV access, 1 mg Glucagon IM. For BG less than 50 mg/dL: Oral treatment preferred: If able to drink, give 240 mL Juice or Regular (not diet) soda OR If NPO, give 30 gram glucose 40% oral gel massaged in buccal mucosa OR if unconscious or uncooperative, give 25 gram (250 mL) Dextrose 10% IV over 15 minutes per protocol OR, if no IV access, 1 mg Glucagon IM. Recheck BG in 30 minutes. May repeat juice/soda, gel, dextrose or glucagon once per episode. For persistent hypoglycemia, consider longer-acting treatment for the duration of the active insulin. glucagon (Glucagen) (1 mg/mL) injection solution 1 mg(Linked Group 3) 1 mg, Intramuscular, EVERY 30 MIN PRN, Starting on Wed04/29/21 at 2134, Until Wed05/07/21 at 2100, Low blood sugar, For BG 50-70 mg/dL: Oral treatment preferred: If able to drink, give 120 mL Juice or Regular (not diet) soda OR If NPO, give 15 gram glucose 40% oral gel massaged into buccal mucosa OR if unconscious or uncooperative, give 25 gram (250 mL) Dextrose 10% IV over 15 minutes per protocol OR, if no IV access, 1 mg Glucagon IM. For BG less than 50 mg/dL: Oral treatment preferred: If able to drink, give 240 mL Juice or Regular (not diet) soda OR If NPO, give 30 gram glucose 40% oral gel massaged in buccal mucosa OR if unconscious or uncooperative, give 25 gram (250 mL) Dextrose 10% IV over 15 minutes per protocol OR, if no IV access, 1 mg Glucagon IM. Recheck BG in 30 minutes. May repeat juice/soda, gel, dextrose or glucagon once per episode. For persistent hypoglycemia, consider longer-acting treatment for the duration of the active insulin., Routine glucose (GLUTOSE) 40% oral geL(Linked Group 3) 15-30 g, Buccal, EVERY 30 MIN PRN, Starting on Wed04/29/21 at 2134, Until Wed05/07/21 at 2100, Low blood sugar, For BG 50-70 mg/dL: Oral treatment preferred: If able to drink, give 120 mL Juice or Regular (not diet) soda OR If NPO, give 15 gram glucose 40% oral gel massaged into buccal mucosa OR if unconscious or uncooperative, give 25 gram (250 mL) Dextrose 10% IV over 15 minutes per protocol OR, if no IV access, 1 mg Glucagon IM. For BG less than 50 mg/dL: Oral treatment preferred: If able to drink, give 240 mL Juice or Regular (not diet) soda OR If NPO, give 30 gram glucose 40% oral gel massaged in buccal mucosa OR if unconscious or uncooperative, give 25 gram (250 mL) Dextrose 10% IV over 15 minutes per protocol OR, if no IV access, 1 mg Glucagon IM. Recheck BG in 30 minutes. May repeat juice/soda, gel, dextrose or glucagon once per episode. For persistent hypoglycemia, consider longer-acting treatment for the duration of the active insulin. 1 tube contains 15 grams of glucose (net weight of tube = 37.5 grams., Routine labetaloL (Normodyne) (5 mg/mL) injection solution 10 mg (COMPLETED) 10 mg, Intravenous, EVERY 4 HOURS PRN, 2 doses, Starting on Wed05/02/21 at 0532, Until Wed05/05/21 at 0436, High Blood Pressure, for SBP greater than 160, hold if HR <50, Routine 0436 (Given - Provider: Margarita Rivera RN) labetaloL (Normodyne) (5 mg/mL) injection solution 10 mg 10 mg, Intravenous, EVERY 2 HOURS PRN, Starting on Wed05/05/21 at 0532, Until Wed05/07/21 at 2100, High Blood Pressure, for SBP greater than 160, hold if HR <50. If SBP >160 after two doses, page [id number]., Routine 0839 (Given - Provider: Mica Montemayor, NICKIE) 0044 (Given - Provider: Jerry Puckett, NICKIE)0454 (Given - Provider: Jerry Puckett RN)0931 (Given - Provider: Octavia Arteaga RN)1231 (Given - Provider: Octavia Arteaga RN)1657 (Given - Provider: Octavia Arteaga RN)1900 (Given - Provider: Octavia Arteaga RN)2128 (Given - Provider: Thaddeus Sabillon RN) 0545 (Given - Provider: Thaddeus Sabillon RN)1200 (Given - Provider: Octavia Arteaga RN)1553 (Given - Provider: Octavia Arteaga RN)1627 (Given - Provider: Octavia Arteaga RN) lactulose (Chronulac) (0.67 gram/mL) oral liquid 10 g 10 g, Oral, 2 TIMES DAILY PRN, Starting on 05/03/21 at 0844, Until Wed05/07/21 at 2100, Constipation, Routine lidocaine (Xylocaine) 1% (10 mg/mL) injection 3 mg 3 mg (0.3 mL), Subcutaneous, ONCE PRN, 1 dose, Starting on Wed04/29/21 at 2246, Until Wed05/07/21 at 2100, for discomfort with PIV insertion, Routine ondansetron (pf) (Zofran) (2 mg/mL) injection 4 mg 4 mg, Intravenous, EVERY 8 HOURS PRN, Starting on Wed04/29/21 at 2134, Until Wed05/07/21 at 2100, Nausea, Vomiting oxyCODONE (Roxicodone) (1 mg/mL) oral liquid 5-10 mg 5-10 mg, Per NG tube, EVERY 4 HOURS PRN, Starting on 05/03/21 at 1100, Until Wed05/07/21 at 2100, Pain, Give 5 mg for pain 1-5; GIve 10 mg for pain 6-10, Routine sodium chloride 0.9 % (flush) (BD PosiFlush Normal Saline 0.9) flush 5-20 mL 5-20 mL, Intravenous, EVERY 1 MIN PRN, Starting on Wed04/29/21 at 2246, Until Wed05/07/21 at 2100, flush, Flush pertains to all indwelling lines. Flush per protocol found in the job aid using the link provided on this medication record., Routine Linked Groups Order Group 1: POCT Fingerstick Glucose (CANCELED) Routine, EVERY 4 HOURS, First occurrence on Wed04/30/21 at 0405, Until Specified, Consider choosing EVERY 4 HOURS as frequency for: - Type 1 Diabetes - At least 24 hours after coming off an insulin drip - At least 24 hours after admission for DKA - Hypoglycemia unawareness - Patients who are otherwise unstable Select the same frequency for the correction bolus insulin order And insulin lispro (HumaLOG;Admelog) (100 unit/mL) subcutaneous injection vial 1-6 UnitsJump to med 1-6 Units, Subcutaneous, EVERY 4 HOURS SCHEDULED, First dose on Wed04/30/21 at 0500, Until Discontinued, CORRECTION BOLUS [1-6 Units] Moderate Sliding Scale (BG in mg/dL): Correction factor 20 (1 unit of insulin is expected to drop the glucose 20 mg/dL) BG 140 - 160 Give 1 unit BG 161 - 180 Give 2 units BG 181 - 200 Give 3 units BG 201 - 220 Give 4 units BG 221 - 240 Give 5 units BG greater than 240, give 6 units and recheck BG in 2 hours. - If recheck BG is LESS than 240, give no insulin and resume schedule. - If recheck BG is GREATER than 240, give 6 units and repeat BG in 2 hours (no more than 3 times) & call for new insulin orders. DO NOT hold if NPO, unless specifically directed to do so by written order. Per Blood Glucose Monitoring Policy, re-check a BG of > 240 mg/dL in 2 hours., Routine Group 2: lidocaine (Lidoderm) 5% patch 1 patchJump to med 1 patch, Transdermal, EVERY 24 HOURS, First dose on 05/03/21 at 0900, Until Discontinued, Apply patch(es) for 12 hours, and then remove for 12 hours., Routine And lidocaine (Lidoderm) topical patch REMOVALJump to med Transdermal, EVERY 24 HOURS, First dose on Wed05/03/21 at 2100, Until Discontinued, Remove lidocaine 5% patch Group 3: glucose (GLUTOSE) 40% oral geLJump to med 15-30 g, Buccal, EVERY 30 MIN PRN, Starting on Wed04/29/21 at 2134, Until Wed05/07/21 at 2100, Low blood sugar, For BG 50-70 mg/dL: Oral treatment preferred: If able to drink, give 120 mL Juice or Regular (not diet) soda OR If NPO, give 15 gram glucose 40% oral gel massaged into buccal mucosa OR if unconscious or uncooperative, give 25 gram (250 mL) Dextrose 10% IV over 15 minutes per protocol OR, if no IV access, 1 mg Glucagon IM. For BG less than 50 mg/dL: Oral treatment preferred: If able to drink, give 240 mL Juice or Regular (not diet) soda OR If NPO, give 30 gram glucose 40% oral gel massaged in buccal mucosa OR if unconscious or uncooperative, give 25 gram (250 mL) Dextrose 10% IV over 15 minutes per protocol OR, if no IV access, 1 mg Glucagon IM. Recheck BG in 30 minutes. May repeat juice/soda, gel, dextrose or glucagon once per episode. For persistent hypoglycemia, consider longer- acting treatment for the duration of the active insulin. 1 tube contains 15 grams of glucose (net weight of tube = 37.5 grams., Routine Or dextrose 10% infusionJump to med 250 mL, at 1,000 mL/hr, Intravenous, EVERY 30 MIN PRN, Starting on Wed04/29/21 at 2134, Until Wed05/07/21 at 2100, For BG 50-70 mg/dL: Oral treatment preferred: If able to drink, give 120 mL Juice or Regular (not diet) soda OR If NPO, give 15 gram glucose 40% oral gel massaged into buccal mucosa OR if unconscious or uncooperative, give 25 gram (250 mL) Dextrose 10% IV over 15 minutes per protocol OR, if no IV access, 1 mg Glucagon IM. For BG less than 50 mg/dL: Oral treatment preferred: If able to drink, give 240 mL Juice or Regular (not diet) soda OR If NPO, give 30 gram glucose 40% oral gel massaged in buccal mucosa OR if unconscious or uncooperative, give 25 gram (250 mL) Dextrose 10% IV over 15 minutes per protocol OR, if no IV access, 1 mg Glucagon IM. Recheck BG in 30 minutes. May repeat juice/soda, gel, dextrose or glucagon once per episode. For persistent hypoglycemia, consider longer-acting treatment for the duration of the active insulin. Or glucagon (Glucagen) (1 mg/mL) injection solution 1 mgJump to med 1 mg, Intramuscular, EVERY 30 MIN PRN, Starting on Wed04/29/21 at 2134, Until Wed05/07/21 at 2100, Low blood sugar, For BG 50-70 mg/dL: Oral treatment preferred: If able to drink, give 120 mL Juice or Regular (not diet) soda OR If NPO, give 15 gram glucose 40% oral gel massaged into buccal mucosa OR if unconscious or uncooperative, give 25 gram (250 mL) Dextrose 10% IV over 15 minutes per protocol OR, if no IV access, 1 mg Glucagon IM. For BG less than 50 mg/dL: Oral treatment preferred: If able to drink, give 240 mL Juice or Regular (not diet) soda OR If NPO, give 30 gram glucose 40% oral gel massaged in buccal mucosa OR if unconscious or uncooperative, give 25 gram (250 mL) Dextrose 10% IV over 15 minutes per protocol OR, if no IV access, 1 mg Glucagon IM. Recheck BG in 30 minutes. May repeat juice/soda, gel, dextrose or glucagon once per episode. For persistent hypoglycemia, consider longer-acting treatment for the duration of the active insulin., Routine documented in this encounter Care Teams Wood Patternmaker Apprentice Relationship Specialty Start Date End Date Weston Tobias PA [address] [place] [address] PCP - General Family Medicine 02/25/21 documented as of this encounter
--- OUTSIDE RECORDS SUMMARY | 2023-12-01 16:01 | XMS_ITS | Encounter Summary ---
Author Organization [facility] Address [facility] [address] [place] [place] [address] Care Team Providers Care Fish Checker Name Role Phone Weston Tobias Primary Care Provider [phone]- [phone] Encounter Details Date Type Department Care Team (Late st Contact Info) Description 05/21/2021 1:00 PM EDT Office Visit Radiation Oncology at [address] [phone] Ag Cruz MD [facility] [place] [address] Squamous cell carcinoma of supraglottis Social History [...] Sign Reading Time Taken Comments Blood Pressure 122/80 05/21/2021 10:27 AM EDT Pulse 116 05/21/2021 10:27 AM EDT Temperature 36.8 ??C (98.2 ??F) 05/21/2021 1 0:27 AM EDT Respiratory Rate 18 05/21/2021 10:2 7 AM EDT Oxygen Saturation 99% 05/21/2021 10: 27 AM EDT Room Air, following suction of trach Inhaled Oxygen Concentration - - Weight 148.1 kg (326 lb 9.6 oz) 05/21/2021 10:27 AM EDT Height - - Body Mass Index 44.29 05/15/2021 1:19 PM EDT documented in this encounter Progress Notes * Ag Cruz MD - 05/21/2021 1:00 PM EDT Images from the original note were not included. Radiation Oncology Follow Up Patient Visit PATIENT NAME: Reggie Pena Sr. DATE OF : 1970 HISTORY OF PRESENT ILLNESS Reggie Pena Sr. is a 51 y.o. 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 He noted progressive pain over the course of a year, associated with odynophagia and dysphagia which started a few months prior. He lost ~ 100 lbs over that time. He noted no otalgia, adenopathy, or difficulty breathing. He saw his PCP, and was referred to ENT; he saw ELIDA Mckinney on 03/20/21. He was note to have a large mass involving the entire epiglottis on in-office DL. CT on HN w/ contrast was performed on 03/20/21 and demonstrated a bulky laryngeal mass as noted below. He was taken to the OR for an EUA and biopsy, and received a PET-CT as noted below. Staging & Therapy CT HN w/ contrast 03/20/21: 1. Tongue base mass eroding through the epiglottis and extending into the preepiglottic fat down tothe level of the true vocal cord. No definite subglottic extension and no evidence of thyroid cartilage invasion. Sclerosis of the left arytenoid cartilage is nonspecific. 2. No cervical lymphadenopathy. 3. No evidence of distant regional metastases. Microlaryngoscopy with biopsy 03/28/21: -Findings: Tumor involving the entire epiglottis and extending laterally to involve the aryepiglottic fold the medial piriform sinus and extending towards the lateral piriform sinus wall but not involving the piriform apex. Tumor extends down onto the arytenoid on the left but does not appear to involve the interarytenoid space. Tumor does not involve the right arytenoid or right area epiglottic fold. The left false fold appears to be uninvolved as does the true cord on the left. The right truecord and false fold did not appear to be involved. Cervical esophagoscopy down to 25 cm from the upper lip demonstrated normal esophageal lumen. Tumor does not appear to involve the base of tongue and the base of tongue is soft on palpation. -Biopsy: A - Left false fold, biopsy: ?? - Low to intermediate-grade squamous dysplasia. B - Left true cord, biopsy: ?? - Intermediate-grade squamous dysplasia. C - Vallecula, biopsy: ?? - Focal low-grade squamous dysplasia. ?? - Minor salivary gland tissue ?? within normal limits. D - Left base of tongue, biopsy: ?? - Focal low-grade squamous dysplasia. ?? - Minor salivary gland tissue ?? within normal limits. E - Supraglottic tumor, biopsy: ?? - Invasive squamous cell carcinoma, moderately differentiated, ??keratinizing. ?? - Background of squamous cell carcinoma in situ. F - Inter arytenoid space, midline, biopsy: ?? - Low-grade squamous dysplasia. PET-CT 03/31/21: 1. Approximately 4 cm FDG avid mass in the left supraglottic larynx extending superiorly into the left lingual tonsil/base of tongue region where crosses midline into the right lingual tonsil region. 2. Small laurita metastases strongly suspected in the bilateral level 2 and left level 3 regions. 3. No distant sites of metastasis. Laryngectomy, modified radical neck dissection (bilateral), pharyngectomy, myocutaneous flap 04/29/21: -Findings: Bulky exophytic supraglottic tumor with extension in the left pyriform sinus and left lateral pharynx with extension to the inferior portion of the left tonsil. Bilateral IIA-IV neck dissections, level dissection, left hemithryoidectomy, and total laryngectomy/partial pharyngectomy , and left tonsillectomy performed. Hand sewn primary T closure. 6LGT placed at the conclusion of the case. Primary TEP performed. -Path: Tumor ?Tumor Focality: ??Unifocal ?Tumor Site: ??Larynx, [...] tumor ?Number of Lymph Nodes Examined: ??122 Other Pertinent Issues: None Currently, he has the following symptoms: Symptom Description Ongoing Intervention Pain Minimal pain, primarily associated with left shouldder No medications Dysphagia Able to eat soft solids, no difficulty with swallowing Xerostomia / Dysgeusia Chronic mild xerostomia, no dysgeusia Otalgia Denies Dental Issues / Trismus Edentulous Nutritional Intake Eating softer foods PEG Not present Neck Pain Mild discomfort, primarily on left Neck Fibrosis / Lymphedema Stiffness post surgical resection HN sensory Changes Denies HN strength Changes Denies Voice Changes Aphonic Social Issues Travels 15 minutes to [facility] Tobacco / EtOH Not currently smoking, quit 04/15/21 Total Pack Years ~ 60 PY Other No Issues ECOG PS: 0 Grade ECOG PERFORMANCE STATUS 0 Fully active, able to carry on all pre-disease performance without restriction 1 Restricted in physically strenuous activity but ambulatory and able to carry out work of a light or sedentary nature 2 Ambulatory and capable of all selfcare but unable to carry out any work activities; up and about > 50% of waking hours 3 Capable of only limited selfcare; confined to bed or chair more than 50% of waking hours 4 Completely disabled; cannot carry on any selfcare; totally confined to bed or chair EXAM There were no vitals filed for this visit. Physical Exam Constitutional: Appearance: He is well-developed. Eyes: Pupils: Pupils are equal, round, and reactive to light. Neck: Comments: Well healed surgical incision, trach c/d/i Cardiovascular: Rate and Rhythm: Normal rate. Pulmonary: Effort: Pulmonary effort is normal. Breath sounds: Normal breath sounds. Skin: Findings: No erythema. Neurological: Mental Status: He is alert and oriented to person, place, and time. Cranial Nerves: No cranial nerve deficit. Psychiatric: Behavior: Behavior normal. PROCEDURE HISTORY Allergies as of 05/21/2021 ??? (No Known Allergies) Past Medical History: Diagnosis Date ??? Diabetes mellitus ??? Obesity ??? Panniculitis ??? Throat cancer Past Surgical History: Procedure Laterality Date ??? PRO ESOPHAGOSCOPY, DIAGNOSTIC N/A 03/28/2021 ESOPHAGOSCOPY, RIGID OR FLEXIBLE, DIAGNOSTIC W/WO SPECIMEN COLLECTION (WRVU 1.52) performed by Mat Casper MD at [facility] MAIN OR ??? PRO LARYNGOSCOPY, DIRCT, OP SCOPE, BIOPSY N/A 03/28/2021 LARYNGOSCOPY, MICROSCOPE, WITH BIOPSY (WRVU 3.55) performed by Mat Casper MD at [facility] ??? PRO LARYNGOSCOPY, DIRCT, OP SCOPE, BIOPSY N/A 04/29/2021 LARYNGOSCOPY, MICROSCOPE, WITH BIOPSY (WRVU 3.55) performed by Mat Casper MD at [facility] ? ? PRO PART REMOVAL TONGUE, <1/2 Bilateral 04/29/2021 GLOSSECTOMY, LESS THAN ONE-HALF TONGUE (WRVU 11.14) performed by Mat Casper MD at [facility] MAIN OR ??? PRO RAD RESEC TONSIL/PILLARS Left 04/29/2021 RADICAL RESECTION OF TONSIL, PILLARS, RETROMOLAR TRIGONE, NO CLOSURE (WRVU 12.23) performed by Mat Casper MD at [facility] OR ? ? PRO REMV LARYNX & PHARYNX Bilateral 04/29/2021 @PHARYNGOLARYNGECTOMY, NECK DISSECTION, NO RECON (WRVU 42.51) performed by Mat Casper MD at [facility] OR ??? PRO UPPER GI ENDOSCOPY, DIAGNOSTIC N/A 04/29/2021 ENDOSCOPY, UPPER GI, DIAGNOSTIC, WITH OR WITHOUT SPECIMENS performed by Rula Webb MD at [facility] OR ??? TONSILLECTOMY Social History Socioeconomic History ??? Marital status: Spouse name: Not on file ??? Number of children: Not on file ??? Years of education: Not on file ??? Highest education level: Not on file Occupational History ??? 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 Smoking status: Former Smoker Packs/day: 1.50 Years: 24.00 Pack years: 36.00 Types: Cigarettes Quit date: 04/2021 Years since quittin.0 ??? Smokeless tobacco: Never Used ??? Tobacco comment: Declines Tobacco cessasion referral at this time. Vaping Use ??? Vaping Use: Never used Substance and Sexual Activity ??? Alcohol use: No Alcohol/week: 0.0 standard drinks Comment: rare alcohol ??? Drug use: No ??? Sexual activity: Not Currently Partners: Female Other Topics Concern ??? Not on file Social History Narrative ??? Not on file Social Determinants of Health Financial Resource Strain: Low Risk ??? Difficulty of Paying Living Expenses: Not hard at all Food Insecurity: No Food Insecurity ??? Worried About Running Out of Food in the Last Year: Never true ??? Ran Out of Food in the Last Year: Never true Transportation Needs: No Transportation Needs ??? Lack of Transportation (Medical): No ??? Lack of Transportation (Non-Medical): No Physical Activity: Not on file Housing Stability: High Risk ??? Unable to Pay for Housing in the Last Year: No ??? Number of Places Lived in the Last Year: 1 ??? Unstable Housing in the Last Year: Yes Family History Problem Relation Age of Onset ??? Coronary Artery Disease Other ??? Diabetes Other ??? Cancer Other ROS: I reviewed and agree with the nursing review of systems accompanying this encounter. The remainder of the comprehensive review of systems was negative with the exception of the pertinent positives and negatives noted above. MEDICATIONS Current Outpatient Medications on File Prior [...] facility-administered medications on file prior to visit. IMAGING I have personally reviewed the imaging reports and images referenced in the oncologic hx and agree with the assessment as stated. Further pertinent imaging data below LABORATORY VALUES CONTRAINDICATIONS TO RADIOTHERAPY NO YES: Date, site, dose (women only) X Prior Radiotherapy X Collagen-Vascular dz X ASSESSMENT /PLAN HN CANCER Staging CT HN PET-CT EUA w/ DL ; Pathologic evaluation of the primary Oncologic resection, now ~ 3 weeks out from surgery Further Staging None Required Therapy Discussion Reggie Pena Sr. has been referred to discuss adjuvant radiotherapy in his care. He has a pT3N0 squamous cell carcinoma of the supraglottic larynx, which was bulky, but had no other risk factors forrecurrence (margins (-), LVI/PNI (- )). Adjuvant radiotherapy for pT3N0 malignancies with no other high risk features is controversial. Limited suggest higher rates of recurrence for supraglottic as opposed to glottic malignancies (I. e. PMID [id number]), and current guidelines support adjuvant radiotherapy for pT3 disease in this context. We discussed the risks and benefits in detail, discussing options of radiotherapy and observation. We discussed the rationale and logistics (including simulation, planning, and treatment) of adjuvant radiotherapy. We discussed the risks of therapy, including but not limited to short term sequelae (fatigue, skin erythema, mucositis, dysphagia, ageusia, xerostomia, weight loss) and care home sequelae (tissue fibrosis, lymphedema, care home dysphagia potentially requiring a permanent feeding tube, xerostomia, osteoradionecrosis, increased risk of dental caries, esophageal stricture, and the possibility of significant damage to soft tissue, bone or skin requiring surgical or medical intervention). Mr. Pena expressed an understanding of these risks. The patient had a number of questions regarding optimal therapy and potential side effects. These questions were answered to his satisfaction Concurrent chemotherapy recommendations: not recommended Therapy Decision Await patient discussion Supportive Care Prophylactic feeding tube: not recommended Referral to Tools Programmer / FISHERIES OFFICER Dental Issues: edentulous OTHER ISSUES None documented in this encounter Plan of Treatment Upcoming Encounters Date Type Department Care Team (Late st Contact Info) Description 02/02/2024 3:00 PM EST Office Visit Radiation Oncology at [address] [phone] Ag Cruz MD [facility] [place] [address] documented as of this encounter Visit Diagnoses Diagnosis Squamous cell carcinoma of supraglottis Malignant neoplasm of supraglottis documented in this encounter Care Teams Fish Checker Relationship Specialty Start Date End Date Weston Tobias PA [address] [place] [address] PCP - General Family Medicine 02/25/21 documented as of this encounter
--- OUTSIDE RECORDS SUMMARY | 2023-12-01 16:02 | XMS_ITS | Encounter Summary ---
Author Organization [facility] Address [facility] [place] [address] Care Team Providers Care Bevel Gear Generator Operator Name Role Phone Weston Tobias Primary Care Provider +1- [phone] Encounter Details Date Type Department Care Team (Late st Contact Info) Description 04/25/2021 Telephone Hematology/Oncology at [address] [phone] Jennifer Cantrell, RD [facility] DR HEMATOLOGY [place] [address] Social History Tobacco Use Types Packs/Day Years [...] encounter Miscellaneous Notes * Telephone Encounter - Jennifer Cantrell RD - 04/25/2021 4:08 PM EST Nutrition Note Called and spoke with patient's daughter Milagros today. Patient is scheduled for partial vs. total laryngectomy on Saturday 04/29 for squamous cell carcinoma of supraglottis. His [facility] for nutrition consult in person. documented in this encounter Plan of Treatment Upcoming Encounters Date Type Department Care Team (Late st Contact Info) Description 02/02/2024 3:00 PM EST Office Visit Radiation Oncology at [address] [phone] Ag Cruz MD [facility] RADI[place] [address] documented as of this encounter Visit Diagnoses Not on filedocumented in this encounter Care Teams Bevel Gear Generator Operator Relationship Specialty Start Date End Date Weston Toibas PA [address] [place] [address] PCP - General Family Medicine 02/25/21 documented as of this encounter
--- OUTSIDE RECORDS SUMMARY | 2023-12-01 16:02 | XMS_ITS | Encounter Summary ---
[place] [address] Care Team Providers Care Bridge Opener Name Role Phone Weston Tobias Primary Care Provider +1- [phone] Encounter Details Date Type Department Care Team (Latest Contact Info) Description 04/10/2021 Multidisciplinary Ca re [place] [phone] Tomy Tipton MD [facility] [place] [address] Social History Tobacco Use Types Packs/Day Years [...] Progress Notes * Tomy Tipton MD - 04/10/2021 8:04 AM EST Images from the original note were not included. Head and Neck Tumor Board Note Site/Stage [id number] SCCa of the supraglottic larynx Synopsis with [...] base of tongue is soft on palpation. Pathology DIAGNOSIS A - Left false fold, biopsy: ?? [...] midline, biopsy: ?? - Low-grade squamous dysplasia. Imaging EXAMINATION: CT NECK SOFT TISSUE W [...] laryngoscopy ?? TECHNIQUE: Following IV injection of 90-diuxqv-2-deoxyglucose (FDG) a standard uptake of approximately 60 [...] distant sites of metastasis. 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 Currently a candidate for a partial laryngectomy. Will discuss options with patient and favor surgery with adjuvant therapy at this time. * (Based on past studies and the information available at the time of presentation) Specific treatment to be undertaken must ultimaly be determined on an individual basis by the patient and those invoved in her/his treatment) Tomy Tipton MD PGY-4 [facility] Otolaryngology Pager: [phone] documented in this encounter Plan of Treatment Upcoming Encounters Date Type Department Care Team (Late st Contact Info) Description 02/02/2024 3:00 PM EST Office Visit Radiation Oncology at [address] [phone] Ag Cruz MD [facility] [place] [address] documented as of this encounter Visit Diagnoses Not on filedocumented in this encounter Care Teams Bridge Opener Relationship Specialty Start Date End Date Weston Tobias PA [address] [place], [place] [address] PCP - General Family Medicine 02/25/21 documented as of this encounter
--- OUTSIDE RECORDS SUMMARY | 2023-12-01 16:02 | XMS_ITS | Encounter Summary ---
Author Organization [facility] Address [facility] [place] [address] Care Team Providers Care Beauty Counselor Name Role Phone Weston Tobias Primary Care Provider [phone]- [phone] Encounter Details Date Type Department Care Team (Latest Contact Info) Description 04/24/2021 1:50 PM EST - 04/24/2021 11:59 PM EST Hospital Encounter XRay at [address] [place] [address] Mat Casper MD [facility] [place] [address] Laryngeal cancer; Dysphagia, unspecified type Discharge Disposition: Home Social History Tobacco Use Types Packs/Day Years Used Date Smoking Tobacco: Every Day Cigarettes 1.5 24 Smokeless Tobacco: Never Comments:Declines Tobacco ce ssasion referral at this time. Alcohol Use Standard Drinks/Week Comments No 0 (1 standard drink = 0.6 oz pur e alcohol) rare alcohol Overall Financial Resource Strain (CARDIA) Dominice r Date Recorded How hard is it [...] Inject 28 Units subcutaneously nightly. 10 mL 05/07/2021 insulin aspart U-100 (NovoLOG) Solution Inject [...] 1 tablet by mouth daily. 30 tablet 05/07/2021 12/11/2021 metFORMIN (GLUCOPHAGE) 1,000 mg TabletIndications:ty pe 2 diabetes mellitus Take 1,000 mg by mouth 2 times daily. Indications: type 2 diabetes mellitus 06/09/2023 enoxaparin (LOVENOX) 40 mg/0.4 mL Syringe Inject 0.4 mLs subcutaneously daily. 02/26/2014 04/29/2021 acetaminophen (TYLENOL) 325 mg Tablet Take 2 tablets by mouth every 6 hours as needed for Pain or Fever. 30 tablet 1 02/26/2014 04/29/2021 insulin aspart (NOVOLOG) Solution Inject 5 Units subcutaneously 3 times daily (before meals). 10 mL 12 02/26/2014 04/29/2021 insulin glargine (LANTUS) Solution Inject 28 Units subcutaneously nightly. 10 mL 12 02/26/2014 04/29/2021 lisinopril (PRINIVIL;ZESTRIL) 10 mg Tablet Take 1 tablet by mouth daily. 30 tablet 12 02/26/2014 04/29/2021 nystatin (MYCOSTATIN) Cream Apply topically 2 times daily. 30 g 0 02/26/2014 04/29/2021 documented as of this encounter Plan of Treatment Upcoming Encounters Date Type Department Care Team (Late st Contact Info) Description 02/02/2024 3:00 PM EST Office Visit Radiation Oncology at [address] [phone] Ag Cruz MD [facility] [place] [address] documented as of this encounter Procedures Procedure Name Priority Date/Time Associated Diagnosis Comments XR FLUORO BARIUM SWALLOW (MODIFIED/VIDEO SWALLOW PHARYNX) Routine 04/24/2021 2:23 PM EST Laryngeal cancer Dysphagia, unspecified type documented in this encounter Results * XR Fluoro Barium Swallow (Modified/Video Swallow Pharynx) (04/24/2021 2:23 PM EST) Anatomical Region Laterality Modality N/A Radio Fluoroscop y Impressions 04/25/2021 10:01 AM EST 1. ??Deep penetration with thin, nectar, and soft solid consistencies as well as barium swallow with 13 mm barium tablet. 2. ??Aspiration of residual fluid and contrast within the valleculae and piriform sinuses. Please see speech language pathologist's note for [...] who have questions please contact the health intensive care ambulance paramedic that requested your imaging first. ? Narrative 04/25/2021 10:01 AM EST EXAMINATION: XR FLUORO BARIUM SWALLOW (MODIFIED/VIDEO SWALLOW PHARYNX) CLINICAL HISTORY: supraglottic/hypopharyngeal cancer, assess baseline swallowing function TECHNIQUE: The examination was performed in conjunction with speech pathology. ??Varying consistencies of barium were administered under lateral [...] with thin, nectar and soft solid consistency. Significant residual pooling within the valleculae and piriform sinuses with intermittent aspiration of residual contrast. There is initiation of cough reflux with deep penetration and aspiration. Penetration of 13 mm barium tablet which patient is unable to swallow requiring patient to orally expel the pill. Procedure Note Asad Marroquin MD - 04/25/2021 EXAMINATION: XR FLUORO BARIUM SWALLOW (MODIFIED/VIDEO SWALLOW PHARYNX) CLINICAL HISTORY: supraglottic/hypopharyngeal cancer, assess baselineswallowing function TECHNIQUE: The examination was performed in conjunction with speech pathology.Varying consistencies of barium were administered under lateral fluoroscopic observation. A 13 mm barium tablet was administered. Fluoro time: 1.48 minutes COMPARISON: CT neck dated 03/20/2021 FINDINGS: The oral phase of swallowing is normal. There is triggering of theswallow reflex at the level of the valleculae. There is thickening of theepiglottis without complete inversion. There is deep penetration with thin, nectar and soft solid consistency. Significant residual pooling within the valleculae and piriform sinuseswith intermittent aspiration of residual contrast. There is initiation ofcough reflux with deep penetration and aspiration. Penetration of 13 mm barium tablet which patient is unable to swallowrequiring patient to orally expel the pill. IMPRESSION 1. Deep penetration with thin, nectar, and soft solid consistencies aswell as barium swallow with 13 mm barium tablet. 2. Aspiration of residual fluid and contrast within the valleculae andpiriform sinuses. Please see speech language pathologist's note for further details. I have personally reviewed the image(s) and the resident's interpretationand agree with the findings, Asad Marroquin MD at 04/25/2021 10:01 AM Thank you for letting us participate in the care of this patient. If youare a health care provider and have any questions regarding this report,please contact the number below. For patients who have questions please contactthe health intensive care ambulance paramedic that requested your imaging first. Mat Casper MD IMG FLUORO ORDERAB LES documented in this encounter Visit Diagnoses Diagnosis Laryngeal cancer Malignant neoplasm of larynx, unspecified site Dysphagia, unspecified type documented in this encounter Care Teams Beauty Counselor Relationship Specialty Start Date End Date Weston Tobias PA [address] [place] [address] PCP - General Family Medicine 02/25/21 documented as of this encounter
--- OUTSIDE RECORDS SUMMARY | 2023-12-01 16:02 | XMS_ITS | Encounter Summary ---
Author Organization [facility] Address [facility] [place] [address] Care Team Providers Care Roof Truss Detailer Name Role Phone Weston Tobias Primary Care Provider +1- [phone] Reason for Visit * Auth/Cert Specialty Diagnoses [...] Expiration Date Visits Re quested Visits Authorized [id number] 1 1 Encounter Details Date Type Department Care Team (Late st Contact Info) Description 04/29/2021 10:59 AM EDT Anesthesia Event [place] [address] Ilya Kapadia MD [facility] [place] [address] Jt Brumfield MD [facility] [place] [address] Anesthesia Record Procedure Summary Procedure Name Responsible Anesthesiologist Anesthesia Start Time Anesthesia Stop Time @PHARYNGOLARYNGECTO MY, NECK DISSECTION, NO RECON (WRVU 42.51) (Bilateral: Throat) Ilya Kapadia MD 04/29/21 1059 04/29/212030 Events Date Time Event Comment 04/29/2021 0848 1059 Start 1103 AN Verify 1103 An Start Data 1124 An Induction 1133 An Intubation 1136 IV Start 1139 Anesthesia Ready 1140 Procedure Start 1155 ABG Data Arterial Blood Gas result: see labs 1224 Break/Relief In I assumed ca re for Break Relief before which we: 1. Identified the patient 2. Identified the responsible provider(s) 3. Reviewed the pertinent medical history 4. Discussed the surgical plan and course 5. Reviewed intra-op anesthesia management and issues during anesthesia 6. Set expectations for the relief (and/or post-procedure) period 7. Allowed opportunity for questions and acknowledgement of understanding Jt Brumfield MD 1256 Break/Relief Out 1425 Break/Relief In I assumed ca re for Break Relief before which we: 1. Identified the patient 2. Identified the responsible provider(s) 3. Reviewed the pertinent medical history 4. Discussed the surgical plan and course 5. Reviewed intra-op anesthesia management and issues during anesthesia 6. Set expectations for the relief (and/or post-procedure) period 7. Allowed opportunity for questions and acknowledgement of understanding Jt Brumfield MD 1440 Break/Relief Out 1502 ABG Data Arterial Blood Gas result: see labs 1711 Handoff Intra-procedure anesthesia care was transferred after review of the patient's history, current anesthetic/surgical status and procedural plan, anticipated issues and expected post-operative course (including disposition.) Michelle Jiménez CRNA 1958 Handoff Intra-procedure anesthesia care was transferred after review of the patient's history, current anesthetic/surgical status and procedural plan, anticipated issues and expected post-operative course (including disposition.) Gaurang Romo CRNA 2027 an stop data 2030 Recovery or ICU Handoff Maureen ent care was transferred to the destination unit staff after review of the patient's medical history, current anesthetic/surgical status and plan, according to the Provider Handoff Checklist. 2030 Stop Meds Name Total Midazolam 2 mg fentaNYL 250 mcg Propofol 350 mg Rocuronium 90 mg PHENYLephrine 80 mcg Ondansetron 4 mg Dexamethasone 8 mg ampicillin-sulbactam (Unasyn ) 3 g vial attach to sodium chloride 0.9% 100 mL Mini-Bag Plus 9 g Succinylcholine 400 mg HYDROmorphone 2 mg/mL 0.8 mg Sugammadex 200 mg lactated ringers infusion 1,800 mL Lactated Ringers 2,400 mL Albumin (human) 5% 500 mL * Agents Name O2 Air N2O Sevoflurane (et) * Blood No blood administrations on file. Lines, Drains, and Airways Type Details Placement Removal Closed/Suction Drain 04/29/21; Left; Nec k; 15 Belizean 04/29/21 0000 by Iman Angela RN Closed/Suction Drain 04/29/21; Right; Ne ck; 15 Belizean 04/29/21 0000 by Iman Angela RN Incision 04/29/21; 1140; throat 04/29/21 1140 by Lidya Rodriguez RN Incision 04/29/21; 1230; neck 04/29/21 12 30 by Lidya Rodriguez RN NG/OG Tube 04/29/21; 1800; Sale m sump; 16 Fr; other (see comments) (layrngectomy stoma); feeding administration; Secured 04/29/21 1800 by Sonal Schreiber RN Incision 02/23/14; abdomen; o ther (see comments); i&d; 10/13/21 (LDA cleanup utility RA#[id number]); 1715 (LDA cleanup utility RA#[id number]) 02/23/14 0000 by Liana Holley RN 10/13/21 1715 by Demarcus Silveira (RETIRED) Peripheral IV Line - Single Lumen 04/29/21; 0846; metacarpal vein (top of hand), right; ipgl-myp-urcyzv catheter system; 18 gauge, 1 in length; Chloé FU; intradermal injection, tolerated well; 07/22/21 (LDA Cleanup utility RA#[id number]); 1027 (LDA Cleanup utility RA#[id number]) 04/29/21 0846 by Michelle Garland RN 07/22/21 1027 by Jerry Balderas ETT Mask Ventilation: Adjunct (2); ETT Type: Cuffed, Oral, VP DESIGN; ETT Size: 6 mm; Indirect: Video; Notes: Asleep, Pre-O2; Attempts: 1; Laryngoscopy Grade: 1; ETT Placement Verified By: Auscultation, Capnometry, Visual; Secured at Teeth: 22 cm; Inserted by: Mat Casper MD; Removal Date: 04/29/21; Removal Time: 1500 04/29/21 1133 by Michelle Jiménez, MEASURING CLERK 04/29/21 1500 by Warren Woo RCP (RETIRED) Peripheral IV Line - Single Lumen 04/29/21; 1136; dorsal arch vein (top of hand), left; yrat-kze-aiwdwu catheter system; Anatomical Landmarks; 16 gauge; Michelle Jiménez, MEASURING CLERK; 07/22/21 (LDA Cleanup utility RA#[id number]); 1027 (LDA Cleanup utility RA#[id number]) 04/29/21 1136 by Michelle Jiménez, MEASURING CLERK 07/22/21 1027 by Jerry Balderas Arterial Line 04/29/21; 1140; radi al artery, right; 20 gauge; Anatomical Landmarks; continuous blood pressure monitoring, frequent blood gas measurement; Jt Brumfield MD; Sterile Prep, Sterile Gloves; 04/29/21; 2100 04/29/21 1140 by Michelle Jiménez, MEASURING CLERK 04/29/21 2100 by Mulugeta Huntley RN Urethral Catheter 04/29/21; 1205; Surg benita longer than 2 hours, Physician order; indwelling catheter with core temperature probe; silver hydrogel antimicrobial coated; 14; inserted at this facility (by NICKIE Dillard,easily w/dark yellow return.); 1; 5; 10; none (pt under general anesthesia.); drainage bag to dependent drainage; 04/30/21; 1100 04/29/21 1205 by Lidya Rodriguez RN 04/30/21 1100 by Samantha Kay RN Trach Inserted by: MD Casper; Surgical Airway Style: Cuffed, Armored; Size: 7 mm; Removal Date: 04/29/21; Removal Time: 201504/29/21 1744 by Gaurang Romo CRNA 04/29/212015 by Iman Angela RN NG/OG Tube 04/29/21; 191; otmarquis r (see comments) (Figueroa Salivary bypass tube); 12 mm clear; 04/29/21; 201404/29/21 191 by Iman Angela RN 04/29/212014 by Iman Angela RN Trach Inserted by: ; Surgical Airway Style: Cuffed; Size: 6 mm; Removal Date: 04/30/21 04/29/212021 by Iman Angela RN 04/30/21 0000 by Duy Tracey RCP documented in this encounter Social History Tobacco Use Types Packs/Day Years [...] on file documented as of this encounter OR Notes * Anesthesia Postprocedure Evaluation - Ilya Kapadia MD - 04/29/2021 11:24 PM EDT Department of Anesthesiology Post-procedure Note Patient: Reggie Pena Sr. Procedure Summary Date: 04/29/21 Room / Location: [facility] OR [facility] MAIN OR Anesthesia Start: 1058 Anesthesia Stop: 2030 Procedures: @PHARYNGOLARYNGECTOMY, NECK DISSECTION, NO RECON (WRVU 42.51) (Bilateral Throat) GLOSSECTOMY, LESS THAN ONE-HALF TONGUE (WRVU 11.14) (Bilateral Throat) RADICAL RESECTION OF TONSIL, PILLARS, RETROMOLAR TRIGONE, NO CLOSURE (WRVU 12.23) (Left Throat) LARYNGOSCOPY, MICROSCOPE, WITH BIOPSY (WRVU 3.55) (N/A Throat) ENDOSCOPY, UPPER GI, DIAGNOSTIC, WITH OR WITHOUT SPECIMENS (N/A ) Diagnosis: Laryngeal cancer Dysphagia, unspecified type (supraglottic/hypopharyngeal cancer) Surgeons: Mat Casper MD; Rula Webb MD Responsible Provider: Ilya Kapadia MD Anesthesia Type: general ASA Status: 3 All Anesthesia Providers: Anesthesiologist: Jessica Garcia MD; Ilya Kapadia MD; Evelyn Hinson MD MEASURING CLERK: Michelle Jiménez CRNA; Gaurang Romo CRNA; Esperanza Diaz CRNA Supervisor Mill: Jt Brumfield MD Vitals Value Taken Time BP 149/80 04/29/212144 Temp 36.5 ??C (97.7 ??F) 04/29/212144 Pulse 92 04/29/212153 Resp 12 04/29/212144 SpO2 96 % 04/29/212153 Pain Level 7 04/29/212054 Vitals shown include unvalidated device data. Patient Location: PACU/OHP Level of Consciousness: Conscious but Sleepy Pain Management: Satisfactory Analgesia PONV: None Cardiovascular Status: At Baseline and Hemodynamically Stable Respiratory Status: At Baseline and Room Air Postoperative Fluid Status: Intravascular EUvolemia Possible Anesthetic Complications: NONE apparent at time of evaluation Final Primary Anesthesia Type: General (The anesthetic type performed was the same as planned.) Comments: Ilya Kapadia MD * Anesthesia Preprocedure Evaluation - Jessica Garcia MD - 04/28/2021 3:37 PM EDT Pre-Anesthesia Evaluation for: Reggie Pena Sr. a 50 y.o. male. Procedure(s): @LARYNGECTOMY, PARTIAL, HORIZONTAL (WRVU 27.57) @CERVICAL LYMPHADENECTOMY (MODIFIED RADICAL NECK DISSECTION) (WRVU 23.95) PHARYNGECTOMY, LIMITED (WRVU 19.13) FLAP, MYOCUTANEOUS OR FASCIOCUTANEOUS, TRUNK (WRVU 19.86) Patient Active Problem List Diagnosis Date Noted ??? 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 Diabetes mellitus type 2, uncontrolled (DM) 02/26/2014 ??? Morbid obesity 02/26/2014 ??? Hypertension (HTN) 02/26/2014 ??? Tobacco abuse 02/26/2014 ??? Panniculitis 02/23/2014 Past Medical History: Diagnosis Date ??? Diabetes mellitus ??? Obesity ??? Panniculitis Past Surgical History: Procedure Laterality Date ??? PRO ESOPHAGOSCOPY, DIAGNOSTIC N/A 03/28/2021 ESOPHAGOSCOPY, RIGID OR FLEXIBLE, DIAGNOSTIC W/WO SPECIMEN COLLECTION (WRVU 1.52) performed by Mat Casper MD at [facility] MAIN OR ??? PRO LARYNGOSCOPY, DIRCT, OP SCOPE, BIOPSY N/A 03/28/2021 LARYNGOSCOPY, MICROSCOPE, WITH BIOPSY (WRVU 3.55) performed by Mat Casper MD at [facility] Social History Tobacco Use ??? Smoking status: Current Every Day Smoker Packs/day: 1.50 Years: 24.00 Pack years: 36.00 Types: Cigarettes ??? Smokeless tobacco: Never Used ??? Tobacco comment: Declines Tobacco cessasion referral at this time. Substance Use Topics ??? Alcohol use: No Alcohol/week: 0.0 standard drinks Comment: rare alcohol Social History Substance and Sexual Activity Drug Use No No Known Allergies Medications: MAR and/or home medications have been reviewed. Physical Exam: Preprocedure Vitals Current as of 04/28/21 1537 No BP, pulse, respiration, SpO2, or temperature recorded. Height: 182.9 cm (6') (04/14/21) Weight: 160.5 kg (353 lb 14.4 oz) (04/14/21) BMI: 47.99 IBW: 77.6 kg (171 lb 1.9 oz) Airway Assessment: Mallampati: III TM distance: >3 FB Neck ROM: full Cardiovascular Assessment: Rhythm: regular Pulmonary Assessment: unlabored breathing Dental Assessment: Misc Assessment: IV access: Peripheral line Last Filed Perioperative Cognitive Screening None Anesthesia Plan: ASA 3 general, with a(n) intravenous induction PRELIMINARY NOTE PER CHART REVIEW (Prior to Patient Exam): Reggie Pena Sr. is a 50 y.o. male with a hx significant for tobacco use, HTN, T2DM on insulin, obesity BMI 45 and laryngeal cancer now presenting for the following procedure(s): Procedure(s): @LARYNGECTOMY, PARTIAL, HORIZONTAL (WRVU 27.57) @CERVICAL LYMPHADENECTOMY (MODIFIED RADICAL NECK DISSECTION) (WRVU 23.95) PHARYNGECTOMY, LIMITED (WRVU 19.13) FLAP, MYOCUTANEOUS OR FASCIOCUTANEOUS, TRUNK (WRVU 19.86) Allergies: No Known Allergies Anesthesia Hx: Tolerated GA for prior biopsy. Grade 1 view with cmac, 6.0 VP DESIGN tube utilized. NPO status: adequate Labs: No results for input(s): WBC, HGB, HCT, PLATELET in the last 7068 hours. 03/20/21 0713 CREATININE 0.76* No results for input(s): AST, ALT, ALKPHOS, BILITOT, BILIDIR in the last 7068 hours. No results for input(s): PT, INR, PTT in the last 168 hours. Lab Results Component Value Date ABORH A Pos 02/23/2014 Plan is for GA with ETT, standard ASA monitors, adequate IV access +/- arterial line. Will use CMACprimary for intubation, fiberoptic to be available. Jt Brumfield MD PGY4 (CA-3), Monitoring And Evaluation Advisor Pager #[phone] Informed Consent: Anesthesia Screening documented in this encounter Plan of Treatment Upcoming Encounters Date Type Department Care Team (Late st Contact Info) Description 02/02/2024 3:00 PM EST Office Visit Radiation Oncology at [address] [phone] Ag Cruz MD [facility] [place] [address] documented as of this encounter Visit Diagnoses Not on filedocumented in this encounter Administered Medications Inactive Administered Medications - up to 3 most recent administrations Medication Order MAR Action Action Date Dose Rate Site albumin (human) 5% 250 mL intravenous solution Intravenous, CONTINUOUS PRN, Starting on Wed04/29/21 at 1640, Until Wed04/29/21 at 203, Anesthesia Intra-op, Routine New Bag 04/29/2021 5:35 PM EDT New Bag 04/29/2021 4:40 PM EDT ampicillin-sulbactam (Unasyn) 3 g vial attach to [...] 10:00 AM EDT 3 g 200 mL/hr dexamethasone (Decadron) injection Intravenous, PRN, Starting on Wed04/29/21 at 1200, Until Wed04/29/21 at 2030, Anesthesia Intra-op, Routine Given 04/29/2021 12:00 PM EDT 8 mg fentaNYL (pf) (50 mcg/mL) multi-dose injection Intravenous, PRN, Starting on Wed04/29/21 at 1140, Until Wed04/29/21 at 2030, Anesthesia Intra-op, Routine Given 04/29/2021 1:18 PM EDT 50 mcg Given 04/29/2021 11:40 AM EDT 200 mcg HYDROmorphone (Dilaudid) (2 mg/mL) multi-dose injection solution Intravenous, PRN, Starting on Wed04/29/21 at 1738, Until Wed04/29/21 at 2030, Anesthesia Intra-op, Routine Given 04/29/2021 6:03 PM EDT 0.4 mg Given 04/29/2021 5:38 PM EDT 0.4 mg lactated ringers infusion 1,000 mL, at 100 mL/hr, Intravenous, CONTINUOUS, Starting on Wed04/29/21 at 0915, Until Wed04/29/21 at 2240, Day of Surgery (Day of Procedure) New Bag 04/29/2021 1:00 PM EDT Restarted 04/29/2021 11:49 AM EDT New Bag 04/29/2021 8:46 AM EDT 1,000 mLs 100 mL/hr lactated ringers infusion Intravenous, CONTINUOUS PRN, Starting on Wed04/29/21 at 1136, Until Wed04/29/21 at 2030, Anesthesia Intra-op New Bag 04/29/2021 4:36 PM EDT New Bag 04/29/2021 2:43 PM EDT New Bag 04/29/2021 11:36 AM EDT midazolam (pf) (Versed) (1 mg/mL) multi-dose injection Intravenous, PRN, Starting on Wed04/29/21 at 1059, Until Wed04/29/21 at 2030, Anesthesia Intra-op, Routine Given 04/29/2021 11:10 AM EDT 1 mg Given 04/29/2021 10:59 AM EDT 1 mg ondansetron (pf) (Zofran) (2 mg/mL) injection Intravenous, PRN, Starting on Wed04/29/21 at 1951, Until Wed04/29/21 at 2030, Anesthesia Intra-op, Routine Given 04/29/2021 7:51 PM EDT 4 mg PHENYLephrine in NS (PF) (ADAM-SYNEPHRINE) 0.8 mg/10 mL (80 mcg/mL) multi-dose injection Syrg Intravenous, PRN, Starting on Wed04/29/21 at 1209, Until Wed04/29/21 at 2030, Anesthesia Intra-op, Routine Given 04/29/2021 12:09 PM EDT 80 mcg propofoL (Diprivan) 10 mg/mL bolus injection (Anesthesia) Intravenous, PRN, Starting on Wed04/29/21 at 1124, Until Wed04/29/21 at 2030, Anesthesia Intra-op Given 04/29/2021 11:32 AM EDT 50 mg Given 04/29/2021 11:28 AM EDT 50 mg Given 04/29/2021 11:24 AM EDT 250 mg rocuronium (Zemuron) (10 mg/mL) multi-dose injection Intravenous, PRN, Starting on Wed04/29/21 at 1740, Until Wed04/29/21 at 2030, Anesthesia Intra-op, Routine Given 04/29/2021 6:58 PM EDT 10 mg Given 04/29/2021 6:27 PM EDT 10 mg Given 04/29/2021 6:02 PM EDT 40 mg succinylcholine (Anectine;Quelicin) (20 mg/mL) injection Intravenous, PRN, Starting on Wed04/29/21 at 1124, Until Wed04/29/21 at 2030, Anesthesia Intra-op, Routine Given 04/29/2021 11:30 AM EDT 100 mg Given 04/29/2021 11:27 AM EDT 100 mg Given 04/29/2021 11:24 AM EDT 200 mg sugammadex (Bridion) 100 mg/mL injection Intravenous, PRN, Starting on Wed04/29/21 at 2012, Until Wed04/29/21 at 2030, Anesthesia Intra-op, Routine Given 04/29/2021 8:12 PM EDT 200 mg documented in this encounter Care Teams Roof Truss Detailer Relationship Specialty Start Date End Date Weston Tobias PA [address] [place] [address] PCP - General Family Medicine 02/25/21 documented as of this encounter
--- OUTSIDE RECORDS SUMMARY | 2023-12-01 16:02 | XMS_ITS | Encounter Summary ---
Author Organization [facility] Address [facility] [place] [address] Care Team Providers Care Bus And Trolley Inspecting Dispatcher Name Role Phone Weston Tobias Primary Care Provider [phone]- [phone] Reason for Referral * Speech Therapy (JAKY) - Closed Specialty Diagnoses / Procedures Referred By Jose A paz Referred To Contact Hematology and Oncology Diagnoses Squamous cell carcinoma of supraglottis Ag Cruz MD [facility] [place] [address] Francia Madrid SLP Referral ID Status Reason Start Date Expiration Date V isits Requested Visits Authorized [id number] Closed Evaluate and Treat 04/28/2021 04/28/2022 12 12 Encounter Details Date Type Department Care Team (Late st Contact Info) Description 04/28/2021 Orders Only [place] [address] Ag Cruz MD [facility] [place] [address] Squamous cell carcinoma of supraglottis Social History [...] PM EST Office Visit Radiation Oncology at [address] [phone] Ag Cruz MD [facility] [place] [address] Scheduled Referrals Name Type Priority Associated Diagnoses Orde r Schedule Referral to Speech Therapy Outpatient Referral Routine Squamous cell carcinoma of supraglottis Ordered: 04/28/2021 documented as of this encounter Visit Diagnoses Diagnosis Squamous cell carcinoma of supraglottis Malignant neoplasm of supraglottis documented in this encounter Care Teams Bus And Trolley Inspecting Dispatcher Relationship Specialty Start Date End Date Weston Tobias PA [address] [place] [address] PCP - General Family Medicine 02/25/21 documented as of this encounter
--- OUTSIDE RECORDS SUMMARY | 2023-12-01 16:02 | XMS_ITS | Encounter Summary ---
[facility] [place] [address] Care Team Providers Care Fusion Operator Name Role Phone Weston Tobias Primary Care Provider [phone]- [phone] Encounter Details Date Type Department Care Team (Late st Contact Info) Description 04/28/2021 Notes Only Hematology/Oncology at [address] [phone] Francia Madrid, BI DATA ARCHITECT Social History Tobacco Use Types Packs/Day Years [...] Progress Notes * Francia Madrid SLP - 04/28/2021 1:57 PM EDTSummary: Communication Note Communication Note BI DATA ARCHITECT briefly met with patient during RD visit today per request of medical team to introduce self topatient/family. Plan to have patient to transfer BI DATA ARCHITECT- specific care to [facility] in [facility] s/p laryngectomy surgery, which is scheduled for tomorrow in [place]. Francia Madrid MA CCC-BI DATA ARCHITECT Speech-Language Pathologist documented in this encounter Plan of Treatment Upcoming Encounters Date Type Department Care Team (Late st Contact Info) Description 02/02/2024 3:00 PM EST Office Visit Radiation Oncology at [address] [phone] Ag Cruz MD [facility] [place] [address] documented as of this encounter Visit Diagnoses Not on filedocumented in this encounter Care Teams Fusion Operator Relationship Specialty Start Date End Date Weston Tobias PA [address] [place], [place] [address] PCP - General Family Medicine 02/25/21 documented as of this encounter
--- OUTSIDE RECORDS SUMMARY | 2023-12-01 16:02 | XMS_ITS | Encounter Summary ---
Author Organization [facility] Address [facility] [place] [address] Care Team Providers Care Parts Manager Name Role Phone Weston Tobias Primary Care Provider [phone]- [phone] Encounter Details Date Type Department Care Team (Late st Contact Info) Description 04/28/2021 9:00 AM EDT Office Visit Hematology/Oncology at [address] [phone] Jennifer Cantrell, [facility] DR HEMATOLOGY [place] [address] Squamous cell carcinoma of supraglottis Social History [...] Progress Notes * Jennifer Cantrell, RD - 04/28/2021 9:00 AM EDT [facility] Initial Assessment Patient Name: Reggie Pena Sr. Diagnosis: squamous cell carcinoma of supraglottis Referred by: Dr. Mendez Assessment: HPI Patient Active Problem List Diagnosis Code ??? Panniculitis M79.3 ??? Diabetes mellitus type 2, uncontrolled (DM) E11.65 ??? Morbid obesity E66.01 ??? Hypertension (HTN) I10 ??? Tobacco abuse Z72.0 ??? Squamous cell carcinoma of supraglottis C32.1 Estimated body mass index is 47.45 kg/m?? as calculated from the following: Height as of 04/24/21: 182.9 cm (6'). Weight as of 04/24/21: 158.7 kg (349 lb 14.4 oz). Wt Readings from Last 3 Encounters: 04/24/21 (!) 158.7 kg (349 lb 14.4 oz) 04/14/21 (!) 160.5 kg (353 lb 14.4 oz) 04/07/21 (!) 160.6 kg (354 lb) Patient reports UBW almost 500#. He reports approximately 100# weight loss (22.5% body weight)--severe 5# weight loss in past 3 weeks (1.4% body weight) Medications: Metformin 100 mg BID, Glipizide, Lovenox, Tylenol, Novolog 5 units TID (not taking), 28 units Lantus at HS(not taking), Lisinopril. Patient scheduled to have partial vs total laryngectomy tomorrow 04/29. Also scheduled for g-tube placement on 04/29. ChemoRT plan TBD. Labs on 01/31: Ca 8.5, BG 303, BUN 18, Creat 0.8, Alb 3.2, TBili 0.4, AlkPhos 69, Na 136, K 4.6, AST 17, ALT 22, WBC 9.68, H/H 14.4/44/7, platelet 207, ANC 6.93. Other BG in Epic: 55-108 mg/dl Nutrition Screen 04/28/2021 04/07/2021 Reason for assessment EN Teach;Symptom management;Unintentional weight loss;High risk diagnosis - Total MST Score - 5 Functional Status 04/28/2021 Appetite Reduced compared to usual intake Blood glucose levels Hypergylcemic Dysphagia Grades Grade 3: severely altered eating/ swallowing, tube feeding or TPN or hospitalization indicated Odynophagia Present Patient has significant dysphagia. He had MBS and [employer] consult on 04/24 at in [place]; puree to soft ground moist solids and regular liquids (small sips) was recommended. Patient reports some choking with PO intake as well as painful swallowing. Does not monitor BG at home. CGM was not staying in place on his arm. 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 Food Insecurity Screening 04/07/2021 Within the past 12 months, the food you bought just didn't last and you didn't have money to get more. 1 Diet History: Visited with patient, his daughter Milagros and NILAM Yi today. Patient reports I'm eating whatever I want but Milagros and Iesha clarify that he is eating soft foods--meatloaf, squash, zucchini casserole. He drinks mostly Pepsi but also milk and water. Patient does have choking with PO intake. Nutrition Diagnosis 04/28/2021 Problems Swallowing difficulty related to dysphagia secondary to HN cancer as evidenced by need for puree - soft ground moist solids and regular liquids per [employer] on 04/24 with upcoming larygectomy and PEG placement on 04/29. Estimated needs based on current weight of 158.7k kcals (20 kcal/kg) 148 g protein (0.8 g/kg) ~3L fluid Nutrition Intervention: * Provided preliminary PEG tube teaching today and provided with supplies. Patient will see RD during inpatient stay. Will plan to follow-up with him after discharge. Monitoring and Evaluation: Will follow up with Reggie in 7-10 days (after discharge) by phone to re-evaluate. I have provided him with my card and contact information should he have any questions in the meantime. Thank you for this consult. Jennifer Cantrell RD documented in this encounter Plan of Treatment Upcoming Encounters Date Type Department Care Team (Late st Contact Info) Description 02/02/2024 3:00 PM EST Office Visit Radiation Oncology at [address] [phone] Ag Cruz MD [facility] DR [place] [address] documented as of this encounter Visit Diagnoses Diagnosis Squamous cell carcinoma of supraglottis Malignant neoplasm of supraglottis documented in this encounter Care Teams Parts Manager Relationship Specialty Start Date End Date Weston Tobias PA [address] [place] [address] PCP - General Family Medicine 02/25/21 documented as of this encounter
--- OUTSIDE RECORDS SUMMARY | 2023-12-01 16:02 | XMS_ITS | Encounter Summary ---
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 Name Role Phone Weston Tobias Primary Care Provider [phone] Reason for Visit * Auth/Cert Specialty Diagnoses / Procedures Referred By Jose A paz Referred To Contact Diagnoses supraglottic/hypopharyngeal cancer Procedures [...] Expiration Date Visits Re quested Visits Authorized [id number] 1 1 Encounter Details Date Type Department Care Team (Late st Contact Info) Description 04/29/2021 11:00 AM EDT - 04/29/2021 7:30 PM EDT Surgery [place] [address] Mat Casper MD [facility] [place] [address] @PHARYNGOLARYNGECTOMY, NECK DISSECTION, NO RECON [facility] Social History Tobacco Use Types Packs/Day Years [...] Sign Reading Time Taken Comments Blood Pressure 129/83 04/29/2021 8:38 AM EDT Pulse 69 04/29/2021 8:38 AM EDT Temperature 36.5 ??C (97.7 ??F) 04/29/2021 8:38 AM ED T Respiratory Rate 17 04/29/2021 8:38 AM EDT Oxygen Saturation 99% 04/29/2021 8:38 AM EDT Inhaled Oxygen Concentration - - Weight - - Height - - Body Mass Index - - documented in this encounter Discharge Summaries * Stephy Bianchi MD - 05/07/2021 10:53 AM EDT OTOLARYNGOLOGY - HEAD & NECK SURGERY DISCHARGE SUMMARY General Info Patient Name: Reggie Pena Sr. Patient Age: 50 y.o. Birthdate: 1970 Admit date: 04/29/2021 Discharge date: 05/07/21 Attending Physician: Mat Casper MD Admission Info Diagnoses: [id number] SCCa of supraglottic larynx Operations/Major Procedures: Procedure(s) [...] this AM with plans to quit), with [id number] SCCa of the supraglottic larynx. Patient was [...] neck drains which were removed on POD8. Carlos were removed prior to discharge. His hospital [...] have questions please contact the health health and social care teacher that requested your imaging first. Electronically signed by: Rosalina Carroll MD, [facility] ([phone]), at 05/06/2021 5:29 PM XR Abdomen 1 view (Generic) Result Date: 04/30/2021 EXAMINATION: XR ABDOMEN 1 VIEW (GENERIC) CLINICAL HISTORY: NGT Placement. Please page ENT Brushing Operator onQgenda at [phone] for the okay to use. TECHNIQUE: Portable [...] have questions please contact the health health and social care teacher that requested your imaging first. Electronically signed by: Keith Marinelli MD,[facility] ([phone]), at 04/30/2021 12:38 AM XR Fluoro Barium [...] have questions please contact the health health and social care teacher that requested your imaging first. Electronically signed by: Asad Marroquin MD, [facility] ([phone]), at 04/25/2021 10:01 AM Discharge Info Discharge [...] -You can reach the ENT clinic at [phone] for appointment questions. -The ENT triage nurse is available at [phone] -For urgent issues during evenings (5 PM - 7 AM) and weekends the ENT resident publications distribution clerk can be reached through the main hospital mine motor operator at [phone] Follow Up: You will need to follow [...] Dept Phone 05/21/2021 9:00 AM Francia Madrid, MARKETING SYSTEMS ANALYST Hematology/Oncology at [facility] Arrive at: [facility] door at end of hallway [phone] Future Orders Complete By Expires Durable Medical Equipment Order [EQ148 Custom] As directed Process Instructions: Scheduling Instructions: Comments: Tracheostomy Supplies Home Equipment Needs Medicaid: NO Narrative: Patient has a laryngectomy and requires supplies for home management. Laryngectomy: Glost Placer: Provox Cuffed or Non-Cuffed: non cuffed Non-Fenestrated Change Monthly. Need back up tracheostomy tubes for Emergency: as ordered above and 1 available in home for emergency HARD COPY SCRIPT WILL BE FAXED TO VENDOR: [employer] [address] [place] [address] Questions: Name/Description of requested item: Laryngectomy tubes Size requested: Provox Vendor Name/Contact information: [employer] Durable Medical Equipment Order [EQ148 Custom] As directed Process Instructions: Scheduling Instructions: Comments: Tracheostomy Supplies Home Equipment Needs Medicaid: NO Narrative: Patient has a laryngectomy and requires suctioning, humidification, and supplies for home management. Laryngectomy tubes to be supplied by [employer] Trach Supplies: Adult Velcro Trach Ties, change [...] [facility] (Resp Supplies) Central Intake: [place]: [facility]: -They cover all [place] Questions: Name/Description of requested item: Tracheostomy supplies, suction and humidification Size requested: standard Vendor Name/Contact information: [facility] Referral to Home Health - at DISCHARGE [QBX0537 CPT(R)] As directed Process Instructions: Scheduling Instructions: Comments: DOCUMENTATION FOR VNA SERVICES (INCLUDING THOSE PATIENTS WITH MEDICARE COVERAGE REQUIRING HOME VNA SERVICES AND/OR HOSPICE SERVICES) PATIENT'S LOCATION: Reggie Luan Pena . [address] [place] [address] [address] [place] [address] (home) Cell: Telephone Information: Flask Maker's Name: pt and family/friends In discussion with the attending physician, it is certified that this patient is under their care and that they, or a Nurse Practitioner,Clinical Nurse specialist or Physician Hobbing Machine Operator who is working directly with them, had [...] laryngectomy tube care (change straps, clean tube) MARKETING SYSTEMS ANALYST:For Management of speech and swallow function, and possible assist with electrolarynx. STRATEGIES ANALYST:For emotional support and community case management. HOME HEALTH CARE AGENCY: [facility] PHONE: [phone] FAX: [phone] Start of care: 24-48 hours post discharge, preferably day after d/c r/t new trach and TEP Patient is not to use TEP until follow up with ENT in clinic. Please note that any additional orders needs or changes will need to be obtained from this patient's PCP: ELIDA Espinosa [address] / [place] [address] All VNA agencies which cover the area of patient's residence have been reviewed, either verbally mikal writing, and patient/family have chosen the home health care agency noted Questions: Agency name and contact information: [facility] Patient location post discharge: [place], [place] What services are requested: Speech Therapy Registered Nurse Social Work Start date: 05/07/2021 Responsible MD post discharge contact info: PCP General Instructions PT NEEDS TO CONTACT THIS VENDOR 24 HOURS AFTER DISCHARGE TO SET UP DELIVERY OF LARYNGECTOMY TUBES. [employer] [address] [place] [address] __ Your Medications Continued medications, unchanged Dose [...] Department Center 05/21/2021 9:00 AM Francia Madrid, MARKETING SYSTEMS ANALYST [facility] Outpatient Services/Studies: Referral to Home Health - at DISCHARGE Order Comments: DOCUMENTATION FOR VNA SERVICES (INCLUDING THOSE PATIENTS WITH MEDICARE COVERAGE REQUIRING HOME VNA SERVICES AND/OR HOSPICE SERVICES) PATIENT'S LOCATION: Reggie Pena Ayala [address] [place] [address] [address] [place] [address] (home) Cell: Telephone Information: Flask Maker's Name: pt and family/friends In discussion with the attending physician, it is certified that this patient is under their care and that they, or a Nurse Practitioner,Clinical Nurse specialist or Physician Hobbing Machine Operator who is working directly with them, had [...] laryngectomy tube care (change straps, clean tube) MARKETING SYSTEMS ANALYST:For Management of speech and swallow function, and possible assist with electrolarynx. STRATEGIES ANALYST:For emotional support and community case management. HOME HEALTH CARE AGENCY: [facility] PHONE: [phone] FAX: [phone] Start of care: 24-48 hours post discharge, preferably day after d/c r/t new trach and TEP Patient is not to use TEP until follow up with ENT in clinic. Please note that any additional orders needs or changes will need to be obtained from this patient's PCP: ELIDA Espinosa [address] / [place] [address] All A agencies which cover the area of patient's residence have been reviewed, either verbally mikal writing, and patient/family have chosen the home health care agency noted Question Response Notes Agency name and contact information [facility] Patient location post discharge [place], [place] What services are requested Speech Therapy What services are requested Registered Nurse What services are requested Social Work Start date 05/07/2021 Responsible MD post discharge contact info PCP Primary Care Doctor: ELIDA Espinosa [phone] Signed: Stephy Bianchi MD 05/07/2021 Routed to Grace Chan and Gladys Granados since H&N Cancer patient documented in this encounter Discharge Instructions * Discharge Instructions* Milagros Roy, BEDSPREAD CUTTER - 05/02/2021 12:52 PM EDT PT NEEDS TO CONTACT THIS VENDOR 24 HOURS AFTER DISCHARGE TO SET UP DELIVERY OF LARYNGECTOMY TUBES. [facility] [place] [address] Diabetes Discharge Instructions Please test blood sugars [...] -You can reach the ENT clinic at [phone] for appointment questions. -The ENT triage nurse is available at [phone] -For urgent issues during evenings (5 PM - 7 AM) and weekends the ENT resident publications distribution clerk can be reached through the main hospital mine motor operator at [phone] Follow Up: You will need to follow [...] which has been set up for you, asnanette. We will try our best to coordinate [...] Dept Phone 05/21/2021 9:00 AM Francia Madrid, MARKETING SYSTEMS ANALYST Hematology/Oncology at [facility] Arrive at: [facility] door at end of hallway [phone] Future Orders Complete By Expires Durable Medical Equipment Order [[id number] Custom] As directed Process Instructions: Scheduling Instructions: Comments: Tracheostomy Supplies Home Equipment Needs Medicaid: NO Narrative: Patient has a laryngectomy and requires supplies for home management. Laryngectomy: Glost Placer: Provox 9/55 Cuffed or Non-Cuffed: non cuffed Non-Fenestrated Change Monthly. Need back up tracheostomy tubes for Emergency: as ordered above and 1 available in home for emergency HARD COPY SCRIPT WILL BE FAXED TO VENDOR: [employer] [facility] [place] [address] Questions: Name/Description of requested item: Laryngectomy tubes Size requested: Provox 9/55 Vendor Name/Contact information: [employer] Durable Medical Equipment Order [[id number] Custom] As directed Process Instructions: Scheduling Instructions: Comments: Tracheostomy Supplies Home Equipment Needs Medicaid: NO Narrative: Patient has a laryngectomy and requires suctioning, humidification, and supplies for home management. Laryngectomy tubes to be supplied by [facility] Trach Supplies: Adult Velcro Trach [...] [facility] (Resp Supplies) Central Intake: [place]: [facility]: -They cover all [place] Questions: Name/Description of requested item: Tracheostomy supplies, suction and humidification Size requested: standard Vendor Name/Contact information: [facility] Referral to Home Health - at DISCHARGE [[id number] CPT(R)] As directed Process Instructions: Scheduling Instructions: Comments: DOCUMENTATION FOR VNA SERVICES (INCLUDING THOSE PATIENTS WITH MEDICARE COVERAGE REQUIRING HOME VNA SERVICES AND/OR HOSPICE SERVICES) PATIENT'S LOCATION: Reggie Pena [address] [place] [address] (home) Cell: Telephone Information: Flask Maker's Name: pt and family/friends In discussion with the attending physician, it is certified that this patient is under their care and that they, or a Nurse Practitioner,Clinical Nurse specialist or Physician Hobbing Machine Operator who is working directly with them, had [...] laryngectomy tube care (change straps, clean tube) MARKETING SYSTEMS ANALYST:For Management of speech and swallow function, and possible assist with electrolarynx. STRATEGIES ANALYST:For emotional support and community case management. HOME HEALTH CARE AGENCY: [facility] PHONE: [phone] FAX: [phone] Start of care: 24-48 hours post discharge, preferably day after d/c r/t new trach and TEP Patient is not to use TEP until follow up with ENT in clinic. Please note that any additional orders needs or changes will need to be obtained from this patient's PCP: ELIDA Espinosa [address] / [place] [address] All A agencies which cover the area of patient's residence have been reviewed, either verbally mikal writing, and patient/family have chosen the home health care agency noted Questions: Agency name and contact information: [facility] Patient location post discharge: [place], [place] What services are requested: Speech Therapy [...] Stephy Bianchi of elevated BG and BP. MD ramsey chatted that team is aware of BP [...] and is comfortable with this for home. [facility] referral in place. [facility] [...] CM for Mr. Pena. General number is [phone]. * Nicola Roycolby Painter, BEDSPREAD CUTTER - 05/07/2021 9:54 AM EDT Follow Up [...] for Diabetes Management Team. Milagros Roy APRN [facility] Endocrinology Diabetes Management Pager [phone] 20 minutes of this 35 minute visit was spent with the patient in counseling on diabetes and treatment plan, reviewing all glucose and insulin data as well as relevant laboratory results with the patient, and coordination of care on the inpatient unit including nursing and primary team. * Angie Khan, SMALL ENGINE TECHNICIAN - 05/07/2021 9:10 AM EDT RT Tracheostomy Note Oxygen Delivery: Interface: None (Room air) ?? Pt received on above noted settings. He refused HTC and is hoping to discharge home this evening. Rena tube in place patient demonstrated competency in cleaning and care. EEQ and TTGK present at [facility] ?? PLAN: Continue to support. Angie Khan [...] plans to quit after this admission), with [id number] SCCa of the supraglottic larynx. Patient is [...] and evaluated ASSESSMENT & PLAN Reggie Pena is a 50 y.o. male s/p laryngectomy [...] PGY1 05/07/21 8:24 AM ENT Team Pager: [phone] * Warren Woo RCP - 05/07/2021 1:56 [...] plans to quit after this admission), with [id number] SCCa of the supraglottic larynx.??Patient is now [...] noted settings. EEQ and TTGK present at [facility] PLAN: Continue to support. Angie Khan RCP * Milagros Roy, BEDSPREAD CUTTER - 05/06/2021 8:26 AM EDT Follow Up [...] Clear liquid diet . Milagros Roy APRN [facility] Endocrinology Diabetes Management Pager [phone] 20 minutes of this 35 minute visit [...] Post-Op Patient ID/Reason for Admission Reggie Pena SrAyala is a 50 y.o. male with PMH obesity, T2DM, HTN, Tobacco use (with plans to quit after this admission), with [id number] SCCa of the supraglottic larynx. Patient is [...] PGY1 05/06/21 7:53 AM ENT Team Pager: [phone] * Stephy Bianchi MD - 05/05/2021 2:28 PM EDT OTOLARYNGOLOGY - HEAD & NECK SURGERY DAILY PROGRESS NOTE Name: Reggie Pena Sr. Age/Sex: 50 y.o. male Attending: Mat Casper MD Hospital Day: 7 6 Days Post-Op Patient ID/Reason for Admission Reggie Pena Sr. is a 50 y.o. male with PMH obesity, T2DM, HTN, Tobacco use (with plans to quit after this admission), with [id number] SCCa of the supraglottic larynx. Patient is [...] PGY1 05/05/21 2:28 PM ENT Team Pager: [phone] * Raghav Mckoy, RD - 05/05/2021 1:22 PM EDT Nutrition Progress Note Reggie Luan Pena Sr. is a 50 y.o. male admitted with H obesity, T2DM, HTN, Tobacco use (last??this AM with plans to quit), with [id number] SCCa of the supraglottic larynx.??Patient is now [...] of this encounter: 163.3 kg (360 lb). [place] Body Weight: 80.9kg (178lbs) Usual Body Weight: [...] and adjust as indicated. Estimated needs: Calories: 7554-1826 kcal/kg IBW (25-30 kcal/kg) Protein: 162 grams [...] inpatient Thank you, RAGHAV MCKOY RD Pager [phone] * Emilia Kumari, COST SPECIALIST - 05/04/2021 11:57 PM EDT RT Tracheostomy [...] Bedside Yes 05/04/211944 Emergency Airway Sign at [facility]? Yes 05/04/211944 Trach Care Performed: inner cannula [...] plans to quit after this admission), with [id number] SCCa of the supraglottic larynx. Patient is [...] PGY5 05/04/21 3:25 PM ENT Team Pager: [phone] Associated attestation - Todd Huntley MD - 05/04/2021 5:01 PM EDT Otolaryngology Attending Physician Addendum Patient discussed at length and in detail with Dr. Moreno. I have reviewed, and agree with, the clinical history, physical examination findings, impression, and plan, as detailed in resident physician's note. Todd Huntley MD, FACS, FAAP Pediatric Otolaryngology [facility] ([facility] * Emilia Kumari RRT - 05/04/2021 2:30 AM EDT RT Tracheostomy [...] plans to quit after this admission), with [id number] SCCa of the supraglottic larynx. Patient is [...] PGY5 05/03/21 10:55 AM ENT Team Pager: [phone] Associated attestation - Todd Huntley MD - 05/04/2021 4:59 PM EDT Otolaryngology Attending Physician Addendum Patient discussed at length and in detail with Dr. Moreno. I have reviewed, and agree with, the clinical history, physical examination findings, impression, and plan, as detailed in resident physician's note. Todd Huntley MD, FACS, FAAP Pediatric Otolaryngology [facility] ([facility]) [facility] * Samantha Roper, RN - 05/03/2021 9:10 AM EDT Shift Summary 0900 team paged regarding NGT depth 0930 ENT at bedside, advanced NGT now 47cm 1130 patient ambulated outside room in galvan, tolerated well. Pain seems much better controled Samantha Roper, RN * Emilia Kumari, COST SPECIALIST - 05/02/2021 9:18 PM EDT RT Tracheostomy [...] Bedside Yes 05/02/211934 Emergency Airway Sign at [facility]? Yes 05/02/211934 Trach Care Performed: inner cannula changed, site care done Secretions: Small??Thick ([place])??blood streaked white. Assessment: Pt received as noted above with trach securely in place with foam trach ties.Pt had good bilateral chest rise with clear breath sounds.Tolerated well overnight without event. ?? Plan: Continue current regimen. EMILIA KUMARI RRT * Deborah Sprague RN - 05/02/2021 12:18 PM EDT The Patient has been provided a list of Home Health Agencies/DME vendors which serve their preferred geographic area. A letter describing our affiliations was reviewed with them and they were educated about their right to choose where referrals are placed. Provided patient with [facility] Star Quality Rating for Home care hand out. Patient requests referral to: [facility]. PHONE: [phone] FAX: [phone] *For RN, MARKETING SYSTEMS ANALYST, STRATEGIES ANALYST Also [place], [place] or *For tube feed and supplies. Also [facility] (Resp Supplies) Central Intake: [place]: [facility]: -They cover all [place] *For trach supplies, suction, humdification (except rena tubes) Also [employer] [address] [address] *For laryngectomy tubes Expected date of discharge: 05/07/21. Referral routed to the Geophysical Engineer for matching with agency/vendor and to provide any required information. Deborah Sprague MSN-Ed, RN ACM poultry farmworker Office of Care Management Pager #[phone] * Stephy Bianchi MD - 05/02/2021 12:02 PM EDT OTOLARYNGOLOGY - HEAD & NECK SURGERY DAILY PROGRESS NOTE Name: Reggie Pena Sr. Age/Sex: 50 y.o. male Attending: Mat Casper MD Hospital Day: 4 3 Days Post-Op Patient ID/Reason for Admission Reggie Pena Sr. is a 50 y.o. male with PMH obesity, T2DM, HTN, Tobacco use (with plans to quit after this admission), with [id number] SCCa of the supraglottic larynx. Patient is [...] PGY1 05/02/21 12:02 PM ENT Team Pager: [phone] * Lucia Puentes, BEDSPREAD CUTTER - 05/02/2021 11:18 AM EDT Images from [...] nursing and primary team. * Emilia Kumari, COST SPECIALIST - 05/02/2021 3:52 AM EDT RT Tracheostomy [...] Bedside Yes 05/01/211949 Emergency Airway Sign at [facility]? Yes 03/17/22 1950 Secretions:Small Thick ([place]) blood streaked white. Assessment: Pt received with the above trach securely in place with foam trach ties.Pt had good bilateral chest rise with clear breath sounds.Tolerated well overnight without event. Plan: : Continue current regimen. EMILIA KUMARI, COST SPECIALIST * HeatherHenrique Katherine, PT - 05/01/2021 3:28 PM EDT Physical Therapy Note Treatment Number PT: 2 Patient profile: Reggie Pena Sr.??is a 50 y.o.??male??admitted with H obesity, T2DM, HTN, Tobacco use, with [id number] SCCa of the supraglottic larynx.??Patient is now [...] 1.52) performed by Mat Casper MD at [facility] MAIN OR ??? PRO LARYNGOSCOPY, DIRCT, OP SCOPE, BIOPSY N/A 03/28/2021 ?? LARYNGOSCOPY, MICROSCOPE, WITH BIOPSY (WRVU 3.55) performed by Mat Casper MD at [facility] MAIN OR ??? PRO LARYNGOSCOPY, DIRCT, OP SCOPE, BIOPSY N/A 04/29/2021 ?? LARYNGOSCOPY, MICROSCOPE, WITH BIOPSY (WRVU 3.55) performed by Mat Casper MD at [facility] MAIN OR ? ? PRO PART REMOVAL TONGUE, <1/2 Bilateral 04/29/2021 ?? GLOSSECTOMY, LESS THAN ONE-HALF TONGUE (WRVU 11.14) performed by Mat Casper MD at [facility] OR ??? PRO RAD RESEC TONSIL/PILLARS Left 04/29/2021 ?? RADICAL RESECTION OF TONSIL, PILLARS, RETROMOLAR TRIGONE, NO CLOSURE (WRVU 12.23) performed by Mat Casper MD at [facility] MAIN OR ? ? PRO REMV LARYNX & PHARYNX Bilateral 04/29/2021 ?? @PHARYNGOLARYNGECTOMY, NECK DISSECTION, NO RECON (WRVU 42.51) performed by Mat Casper MD at [facility] MAIN OR ??? PRO UPPER GI ENDOSCOPY, DIAGNOSTIC N/A 04/29/2021 ?? ENDOSCOPY, UPPER GI, DIAGNOSTIC, WITH OR WITHOUT SPECIMENS performed by Raghav Webb MD [facility] MAIN OR ?? Active Non-Hospital Problems ?? Diagnosis [...] Walks without devices. Independent. 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 Equipment at home: none Fall history: none [...] plan as stated. Time IN / OUT: 7010-2211 Total Minutes, Physical Therapy: 25 (TEF REEMA) KATHERINE BREWSTER, PT Pager: [phone] Physical Therapy Inpatient Rehabilitation Department * Misty Tee, OT - 05/01/2021 3:05 PM EDT Occupational Therapy Treatment Note Treatment Number OT: 2 Patient profile: Per MD: Reggie Pena Sr.??is a 50 y.o.??male??with PMH obesity, T2DM, HTN, Tobacco use (last??this AM with plans to quit), with [id number] SCCa of the supraglottic larynx.??Patient is now [...] 1.52) performed by Mat Casper MD at [facility] MAIN OR ??? PRO LARYNGOSCOPY, DIRCT, OP SCOPE, BIOPSY N/A 03/28/2021 ?? LARYNGOSCOPY, MICROSCOPE, WITH BIOPSY (WRVU 3.55) performed by Mat Casper MD at [facility] MAIN OR ??? PRO LARYNGOSCOPY, DIRCT, OP SCOPE, BIOPSY N/A 04/29/2021 ?? LARYNGOSCOPY, MICROSCOPE, WITH BIOPSY (WRVU 3.55) performed by Mat Casper MD at [facility] MAIN OR ? ? PRO PART REMOVAL TONGUE, <1/2 Bilateral 04/29/2021 ?? GLOSSECTOMY, LESS THAN ONE-HALF TONGUE (WRVU 11.14) [facility] ??? PRO RAD RESEC TONSIL/PILLARS Left 04/29/2021 ?? RADICAL RESECTION OF TONSIL, PILLARS, RETROMOLAR TRIGONE, NO CLOSURE (WRVU 12.23) performed by Mat Casper MD at [facility] MAIN OR ? ? PRO REMV LARYNX & PHARYNX Bilateral 04/29/2021 ?? @PHARYNGOLARYNGECTOMY, NECK DISSECTION, NO RECON (WRVU 42.51) performed by Mat Casper MD at [facility] MAIN OR ??? PRO UPPER GI ENDOSCOPY, DIAGNOSTIC N/A 04/29/2021 ?? ENDOSCOPY, UPPER GI, DIAGNOSTIC, WITH OR WITHOUT SPECIMENS performed by Raghav Webb MD [facility] MAIN OR ? Social History: Patient lives alone in a one level home in [place]. Home Setup: Pt reports 3 MARLON. Pt has a walk in shower. Pt reports 3 recliner chairs, but typically sleeps in a regular flat bed. DME: None Baseline ADL/Mobility: Pt typically independent with all ADL and IADL routines. 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 Pt has [...] sit: min Ax2 towards the L via PRODUCT DEVELOPMENT MANAGER ?? Sit to stand: CGAx2 ?? Ambulation: [...] Minutes, Occupational Therapy: 15 (1 SC) Pager: [phone] Misty Tee OT Occupational Therapy Rehabilitation Department [...] plans to quit after this admission), with [id number] SCCa of the supraglottic larynx. Patient is [...] nutrition, PT/OT Lines: JPx2, TEP NG, 8UN85H, jovany MARIANO (void trial 05/03) Prophylaxis: Lovenox, SCD, ambulation, H2 Disposition: NSCU, Attempt Cardiopulmonary Resuscitation - Inpatient Discharge: Plan for d/c TBD ; Needs TF and VNA; Follow-up ENT Stephy Bianchi MD, PGY2 05/01/21 12:55 PM ENT Team Pager: [phone] * Tanner Marin RCP - 05/01/2021 11:54 [...] 9:26 AM EDT Nutrition Progress Note Reggie Luan Pena Sr. is a 50 y.o. male admitted with PMH obesity, T2DM, HTN, Tobacco use (last??this AM with plans to quit), with [id number] SCCa of the supraglottic larynx.??Patient is now [...] provider. Team paged with nutrition recommendations. Pager# [phone]. All Active TF Orders: Tubefeeding Orders (From [...] of this encounter: 163.3 kg (360 lb). [place] Body Weight: 80.9kg (178lbs) Usual Body Weight: [...] tolerance and adjustas indicated. Estimated needs: Calories: 1890-7711 kcal/kg IBW (25-30 kcal/kg) Protein: 162 grams (2 g/kg IBW) Tolerance or barriers to meeting needs: TBD Nutrition Focused Physical Exam (NFPE): Not performed Protein-calorie Malnutrition: Not identified (Cassidy, KRISTINE J Parenteral Enteral Nutr. 2011; 36(3): 273-83) Nutrition to continue to follow up while inpatient Thank you, Amy Charles Dost * Milagros Roy, BEDSPREAD CUTTER - 05/01/2021 7:41 AM EDT Follow Up [...] call for new orders. Milagros Roy APRN [facility] Endocrinology Diabetes Management Pager [phone] 20 minutes of this 35 minute visit [...] ACS to sign off. - Please page [phone] if further assistance needed. Casimiro Schmidttal [facility] General Surgery resident * Tracy Martin [...] (last??this AM with plans to quit), with [id number] SCCa of the supraglottic larynx. Patient is [...] and evaluated ASSESSMENT & PLAN Reggie Pena . is a 50 y.o. male s/p laryngectomy [...] PGY2 04/30/21 4:32 PM ENT Team Pager: [phone] * Misty Tee, OT - 04/30/2021 3:08 PM EDT Occupational Therapy Evaluation Patient profile: Per MD: Reggie Pena Sr. is a 50 y.o. male with PMH obesity, T2DM, HTN, Tobacco use (last??this AM with plans to quit), with [id number] SCCa of the supraglottic larynx. Patient is [...] 1.52) performed by Mat Casper MD at [facility] MAIN OR ??? PRO LARYNGOSCOPY, DIRCT, OP SCOPE, BIOPSY N/A 03/28/2021 LARYNGOSCOPY, MICROSCOPE, WITH BIOPSY (WRVU 3.55) performed by Mat Casper MD at [facility] ??? PRO LARYNGOSCOPY, DIRCT, OP SCOPE, BIOPSY N/A 04/29/2021 LARYNGOSCOPY, MICROSCOPE, WITH BIOPSY (WRVU 3.55) performed by Mat Casper MD at [facility] ? ? PRO PART REMOVAL TONGUE, <1/2 Bilateral 04/29/2021 GLOSSECTOMY, LESS THAN ONE-HALF TONGUE (WRVU 11.14) performed by Mat Casper MD at [facility] MAIN OR ??? PRO RAD RESEC TONSIL/PILLARS Left 04/29/2021 RADICAL RESECTION OF TONSIL, PILLARS, RETROMOLAR TRIGONE, NO CLOSURE (WRVU 12.23) performed by Mat Casper MD at [facility] MAIN OR ? ? PRO REMV LARYNX & PHARYNX Bilateral 04/29/2021 @PHARYNGOLARYNGECTOMY, NECK DISSECTION, NO RECON (WRVU 42.51) performed by Mat Casper MD at [facility] MAIN OR ??? PRO UPPER GI ENDOSCOPY, DIAGNOSTIC N/A 04/29/2021 ENDOSCOPY, UPPER GI, DIAGNOSTIC, WITH OR WITHOUT SPECIMENS performed by Raghav Webb MD at [facility] MAIN OR Social History: Patient lives alone in a one level home in [place]. Home Setup: Pt reports 3 MARLON. Pt has a walk in shower. Pt reports 3 recliner chairs, but typically sleeps in a regular flat bed. DME: None Baseline ADL/Mobility: Pt typically independent with all ADL and IADL routines. 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 Pt has [...] Minutes, Occupational Therapy: 32 (1 mod eval) 2016 OT Evaluation Code Rationale: ?? Diagnosis & [...] and measurable assessment of functional outcome. Pager: [phone] Misty Tee OT 04/30/2021 Occupational Therapy Rehabilitation Department * Katherine Brewster, PT - 04/30/2021 2:31 PM EDT Physical Therapy Evaluation Patient profile: Reggie Pena Sr. is a 50 y.o. male admitted with [facility] obesity, T2DM, HTN, Tobacco use, with [id number] SCCa of the supraglottic larynx.??Patient is now [...] 1.52) performed by Mat Casper MD at [facility] MAIN OR ??? PRO LARYNGOSCOPY, DIRCT, OP SCOPE, BIOPSY N/A 03/28/2021 LARYNGOSCOPY, MICROSCOPE, WITH BIOPSY (WRVU 3.55) performed by Mat Casper MD at [facility] ??? PRO LARYNGOSCOPY, DIRCT, OP SCOPE, BIOPSY N/A 04/29/2021 LARYNGOSCOPY, MICROSCOPE, WITH BIOPSY (WRVU 3.55) performed by Mat Casper MD at [facility] ? ? PRO PART REMOVAL TONGUE, <1/2 Bilateral 04/29/2021 GLOSSECTOMY, LESS THAN ONE-HALF TONGUE (WRVU 11.14) performed by Mat Casper MD at [facility] MAIN OR ??? PRO RAD RESEC TONSIL/PILLARS Left 04/29/2021 RADICAL RESECTION OF TONSIL, PILLARS, RETROMOLAR TRIGONE, NO CLOSURE (WRVU 12.23) performed by Mat Casper MD at [facility] MAIN OR ? ? PRO REMV LARYNX & PHARYNX Bilateral 04/29/2021 @PHARYNGOLARYNGECTOMY, NECK DISSECTION, NO RECON (WRVU 42.51) performed by Mat Casper MD at [facility] MAIN OR ??? PRO UPPER GI ENDOSCOPY, DIAGNOSTIC N/A 04/29/2021 ENDOSCOPY, UPPER GI, DIAGNOSTIC, WITH OR WITHOUT SPECIMENS performed by Raghav Webb MD at [facility] MAIN OR Active Non-Hospital Problems Diagnosis ??? Squamous [...] Walks without devices. Independent. 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 Equipment at home: none Fall history: none [...] place, and time. Pleasant. Vision: Wfls Skin: Carlos ant neck, tracheostomy, JPs Musculoskeletal: ROM: B [...] outlinedin this evaluation. Time IN / OUT: 5239-7290 Total Minutes, Physical Therapy: 30 KATHERINE BREWSTER, PT Pager: [phone] Physical Therapy Inpatient Rehabilitation Department * Erika Mora RD - 04/30/2021 11:10 AM EDT Nutrition Consult Note Reggie Luan Pena Sr. is a 50 y.o. male admitted with PMH obesity, T2DM, HTN, Tobacco use (last??this AM with plans to quit), with [id number] SCCa of the supraglottic larynx. Patient is [...] of this encounter: 163.3 kg (360 lb). [place] Body Weight: 80.9 kg - [place] Usual [...] up while inpatient Erika Mora RD Pager #:[phone] * Duy Tarcey, SMALL ENGINE TECHNICIAN - 04/30/2021 9:28 AM EDT Respiratory Care [...] bianchi and unit routine. Persistent hyperglycemia, aware. tobacco educator to see patient today. Belongings at [...] this AM with plans to quit), with [id number] SCCa of the supraglottic larynx. Patient is [...] Output Intake/Output Summary (Last 24 hours) at 04/29/2021 2223 Last data filed at 04/29/2021 2100 Gross [...] Imaging No post-imaging ASSESSMENT & PLAN Reggie Roland Jean Ramirez. is a 50 y.o. male s/p above procedure. Patient is doing well postoperatively. Continue with current care plan. Hold lovenox and ibuprofen tonight. NGT is OK to use. __ Stephy Bianchi MD, PGY1 04/29/21 10:23 PM ENT Team Pager: [phone] documented in this encounter H&P Notes * Raghav Webb MD - 04/29/2021 11:16 AM EDT [facility] Acute Care Surgery History and Physical HPI: Reggie Roland Jean Ramirez. is a 50 y.o. male who presents for partial laryngectomy today for [id number] SCCa of the supraglottic larynx. General Surgery was consulted for a feeding access. The patient has not been on anticoagulation. He does not take any steroids. Past Medical History: Diagnosis Date Diabetes mellitus Obesity Panniculitis Past Surgical History: Procedure Laterality Date PRO ESOPHAGOSCOPY, DIAGNOSTIC N/A 03/28/2021 ESOPHAGOSCOPY, RIGID OR FLEXIBLE, DIAGNOSTIC W/WO SPECIMEN COLLECTION (WRVU 1.52) performed by Mat Casper MD at [facility] MAIN OR PRO LARYNGOSCOPY, DIRCT, OP SCOPE, BIOPSY N/A 03/28/2021 LARYNGOSCOPY, MICROSCOPE, WITH BIOPSY (WRVU 3.55) performed by Mat Casper MD at [facility] No current facility-administered medications on file [...] level: Not on file Occupational History Occupation: [employer] Tobacco Use Smoking status: Current Every Day [...] Ext: No peripheral edema Plan: Reggie Pena SrAyala is a 50 y.o. male who presents [...] this AM with plans to quit), with [id number] SCCa of the supraglottic larynx. Plan for [...] PGY1 04/29/21 9:19 AM ENT Team Pager: [phone] documented in this encounter Miscellaneous Notes * Initial Assessments - Mat Ball, MARKETING SYSTEMS ANALYST - 05/07/2021 10:44 AM EDT Department of Rehabilitation Medicine Speech Pathology Plan Of Care TEP Re-Evaluation/Placement Reggie Luan Pena Sr. : 1970 04/21/2021 10:44 AM Total Evaluation [...] (with plans to quitafter this admission), with [id number] SCCa of the supraglottic larynx. S/P total [...] TEP with saline at least 3x/day ?? [place] TEP PRN ?? Contact ENT/MARKETING SYSTEMS ANALYST with any ?'s or concerns re: TEP. Current Goals ??? Pt to demonstrate good comprehension of stomal and TEP care/maintenance. ??? Pt to demonstrate good comprehension of use of TEP. P: ??? Speech Pathology to follow 2-3 times weekly during acute hospitalization. ??? Pt. is in agreement with plan of treatment Mat Ball MS, [facility]-MARKETING SYSTEMS ANALYST Speech-Language Pathologist Rehabilitation Medicine Pager # [phone] * Plan of Care - Octavia Arteaga [...] COVID test: Lab Results Component Value Date [id number] Not Detected 04/29/2021 Past medical History: Past [...] Milagros-dtr would be surrogate decision maker per [place] surrogate decision making law. (Only good for 180 days) Any patient receiving care at [facility] must abide by [place] law. The hierarchy for surrogate decision making [...] (i) The agent with financial power of city attorney or a conservator appointed in accordance [...] Current DME: none Home Address confirmed as: [address] [place] [address] [address] [place] [address] Social & Family Supports: All names listed below confirmed with patient as current and correct Extended Emergency Contact Information Primary Emergency Contact: Jes Pena [facility] Relation: Mother Secondary Emergency Contact: GABRIEL ROSS [...] Specific Information: n/a Health/Prescription Coverage: Primary Insurance: [facility] Payor: MVP / Plan: MVP [place] / Product Type: *No Product type* / Secondary Insurance: N/A Prescription Coverage: Yes Preferred Pharmacy: [facility] [address] [place] [id number] Status: Patient is a : No Primary Care Provider: ELIDA Espinosa [phone] Patient/Caregiver Goals of Treatment: To return home [...] referrals are placed. Patient/Caregiver requests referral to [facility], [facility], [facility], and [facility]. Transportation: no concerns Transportation [...] transition of care planning. Deborah Sprague MSN, building construction inspector. Pager #[phone] * Plan of Care - Cristofer Pro [...] Surveillance: Bed locked in low position, call bianchi within reach, purposeful hourly rounding, clutter free environment, bed/chair alarm on Patient-specific fall prevention interventions for sensory deficits provided: N/A CPG GOAL OUTCOME EVALUATION: Continue care plan as documented. * Consult Note - Milagros Roy APRN - 04/30/2021 8:37 AM EDT Diabetes Management Team Inpatient Consult Date of Consultation: 04/30/2021 Consult Requested by: Surgery Reason for Consultation: Reggie Pena Sr. is a 50 y.o. male with PMH significant for T2DM who was admitted on 04/29/2021 currently being treated for status post laryngectomy. We are being consulted to assist with diabetes management and to provide a review of buttermaker continuous churn diabetes care. Diabetes History: Reggie Pena Sr. [...] in tube feed call for new orders. senior living diabetes care: Medications - Outpatient treatment regimen recommendations pending based on the hospital course. Monitoring - continue BG tid ac & hs Diet - low fat/low carb diet Exercise - weight-bearing exercise 30 min/day, as tolerated Thank you for allowing us to provide care for your patient Milagros Roy APRN [facility] Endocrinology Diabetes Management Pager [phone] minutes of this 80 minute visit was spent with the patient in counseling on diabetes and treatment plan, reviewing all glucose and insulin data as well as relevant laboratory results with the patient, and coordination of care on the inpatient unit * Brief Op Note - Tomy Tipton MD - 04/29/2021 8:16 PM EDT Brief Operative Note Patient Name: Reggie Pena Sr. : [id number] MR#: [id number] Case Date: 04/29/2021 Surgeon: Surgeon(s) and Role: [...] tissue samples (in container) 1 04/29/21 1836 03/15/22 1835 Specimen to Pathology (Multiple Specimen to [...] neck level 4 eD-H Order Id number [id number] 04/29/21 1444 04/29/21 1440 Specimen to Pathology [...] panel ) ONE TIME Comments: OR# 1, [id number] Question Answer Comment Clinical History and Diagnosis: [...] Bundle Used? N/A Tomy Tipton MD PGY-4 [facility] Otolaryngology Pager: [phone] * Op Note - Raghav Webb MD - 04/29/2021 11:40 AM EDT [facility] Operative Note Patient Name: Reggie Pena . : [id number] MR#: [id number] Case Date: 04/29/2021 Surgeon: Raghav Prasad MD - Primary * Nick Tsang MD [...] Casper MD - 04/29/2021 11:40 AM EDT [facility] Operative Note Patient Name: Reggie Pena Sr. 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 Direct laryngoscopy with biopsy 2. Bilateral modified radical neck dissection (levels II-IV) 3. Central neck dissection (level ) 4. Left paty-thyroidectomy 5. Total laryngectomy 6. Partial pharyngectomy Anesthesia: [facility] Indications for procedure: 50 yo [...] pharynx on the right. Using a baby [facility] a pharyngotomy was made in the right [...] Formation and Closure of Pharyngeal Defect Using [place] graspers we were able to assess for [...] was amenable to primary closure. A 12 [place] salivary bypass tube was then brought into [...] of our closure. These were reinforced with pcoibl-dw-jyzdu sutures. The mobilized sternal heads of the [...] of the case. Tomy Tipton MD PGY-4 [facility] Otolaryngology Pager: [phone] Attestation: Case Date: 04/29/2021 I was present and I participated during the entire procedure (does not need to include opening and closing). MAT CASPER MD 05/06/2021 documented in this encounter Plan of Treatment Upcoming Encounters Date Type Department Care Team (Late st Contact Info) Description 02/02/2024 3:00 PM EST Office Visit Radiation Oncology at [address] [address] Ag Cruz MD [facility] [place] [address] documented as of this encounter Procedures Procedure [...] AM EDT Laryngoscopy, Dirct, Op Scope, Biopsy ([id number]) Yes 04/29/2021 11:02 AM EDT Laryngeal cancer Dysphagia, unspecified type Upper GI Endoscopy, Diagnostic (30302) Yes 04/29/2021 11:02 AM EDT Laryngeal cancer Dysphagia, unspecified type Rad Resec Tonsil/Pillars (14521) Yes 04/29/2021 11:02 AM EDT Laryngeal cancer Dysphagia, unspecified type Part Removal Tongue, <1/2 (54073) Yes 04/29/2021 11:02 AM EDT Laryngeal cancer Dysphagia, unspecified type Remv Larynx & Pharynx (73203) Yes 04/29/2021 11:02 AM EDT Laryngeal cancer Dysphagia, unspecified type RAPID COVID-19 PCR ([facility]/APD/[place]) Routine 04/29/2021 9:03 AM EDT POCT GLUCOSE [...] OF CARE TEST ORDERABLES Performing Organization Address City/[facility] Co de Phone Number [facility] [place] [address] * (ABNORMAL) POCT Glucose (05/07/2021 2:16 PM EDT) Glucose, POC 234(H) 65 - 199 mg/dL [facility] Comment: Supplemental ranges: <140 mg/dL before meals <180 mg/dL all other times of the day Blood 05/07/2021 2:16 PM EDT 05/07/2021 2:16 PM EDT Mat Casper MD POINT OF CARE TEST ORDERABLES Performing Organization Address [facility] Co de Phone Number [facility] [place] [address] * (ABNORMAL) POCT Glucose (05/07/2021 12:05 PM EDT) Glucose, POC 249(H) 65 - 199 mg/dL [facility] Comment: Supplemental ranges: <140 mg/dL before meals <180 mg/dL all other times of the day Blood 05/07/2021 12:0 5 PM EDT 05/07/2021 12:05 PM EDT Mat Casper MD POINT OF CARE TEST ORDERABLES Performing Organization Address City/[facility] Co de Phone Number [facility] [place] [address] * POCT Glucose (05/07/2021 7:48 AM EDT) Glucose, POC 190 65 - 199 mg/dL [facility] Comment: Supplemental ranges: <140 mg/dL before meals <180 mg/dL all other times of the day Blood 05/07/2021 7:48 AM EDT 05/07/2021 7:48 AM EDT Mat Casper MD POINT OF CARE TEST ORDERABLES [facility] [place] [address] * POCT Glucose (05/07/2021 5:32 AM EDT) Glucose, POC 167 65 - 199 mg/dL [facility] Comment: Supplemental ranges: <140 mg/dL before meals <180 mg/dL all other times of the day Blood 05/07/2021 5:32 AM EDT 05/07/2021 5:32 AM EDT Mat Casper MD POINT OF CARE TEST ORDERABLES Performing Organization Address [facility] Co de Phone Number [facility] [place] [address] * (ABNORMAL) Differential, Automated (05/07/2021 5:26 AM EDT) [facility] Neutrophil % 68.4 % [facility] Neutrophil Absolute 6.43(H) 1.70 - 6.10 x10(3)/mc L [facility] Lymph % 16.8 % [facility] Lymphocytes Abs 1.6 0.9 - 3.2 x10(3)/mc L [facility] Monocyte % 7.8 % [facility] Monocyte Abs 0.7 0.3 - 0.9 x10(3)/mc L [facility] Eos % 4.7 % [facility] Eosinophils Abs 0.4 0.0 - [...] Immature Gran Absolute 0.13(H) 0.00 - 0.04 x10(3)/mc L [facility] Blood 05/07/2021 5:26 AM EDT 05/07/2021 6:02 AM EDT Narrative Resulting Agency Comment Spec In Lab Stephy Bianchi MD HEMATOLOGY ORDERABLE S [facility] [place] [address] * (ABNORMAL) Hemogram (05/07/2021 5:26 AM EDT) White Blood Cell 9.4 4.0 - 9.5 x10(3)/mc L [facility] Red Blood Cell 4.32(L) 4.58 - 5.54 x10(6)/mc L [facility] Hemoglobin 12.1(L) 13.7 - 16.5 g/dL [facility] Hematocrit 35.9(L) 40.5 - 48.5 % [facility] Mean Cell Volume 83.1 82.9 - 93.1 [facility] Mean Cell Hemoglobin 28.0 27.5 - 32.1 pg [facility] Mean Cell Hemoglobin Concentration 33.7 32.0 - 35.7 g/dL [facility] Platelet 250 145 - 357 x10(3)/mc L [facility] RDW Standard Deviation 42.1 36.0 - 45.0 [facility] RDW coefficient of variation 13.9(H) 11.4 - 13.8 % [facility] Mean Platelet Volume 8.8 7.6 - 12.9 [facility] NRBC% auto 0.0 % [facility] NRBC Absolute 0.000 0.000 - 0.000 x10(3)/mc L [facility] Blood 05/07/2021 5:26 AM EDT 05/07/2021 6:02 AM EDT Narrative Resulting Agency Comment Spec In Lab Stephy Bianchi MD HEMATOLOGY ORDERABLE S Performing Organization Address City/[facility]/ZIP Co de Phone Number [facility] [place] [address] * POCT Glucose (05/06/2021 11:55 PM EDT) Glucose, POC 166 65 - 199 mg/dL [facility] Comment: Supplemental ranges: <140 mg/dL before meals <180 mg/dL all other times of the day Blood 05/06/2021 11:5 5 PM EDT 05/06/2021 11:55 PM EDT Mat Casper MD POINT OF CARE TEST ORDERABLES Performing Organization Address [facility]/ZIP Co de Phone Number [facility] [place] [address] * (ABNORMAL) POCT Glucose (05/06/2021 8:51 PM EDT) Glucose, POC 205(H) 65 - 199 mg/dL [facility] Comment: Supplemental ranges: <140 mg/dL before meals <180 mg/dL all other times of the day Blood 05/06/2021 8:51 PM EDT 05/06/2021 8:51 PM EDT Mat Casper MD POINT OF CARE TEST ORDERABLES Performing Organization Address [facility] Co de Phone Number [facility] [place] [address] * XR Abdomen 1 view (Generic) (05/06/2021 [...] have questions please contact the health health and social care teacher that requested your imaging first. ? Electronically signed by: Rosalina Carroll MD, [facility] ([phone]), at 05/06/2021 5:29 PM Narrative 05/06/2021 5:29 [...] who have questions please contactthe health health and social care teacher that requested your imaging first. Electronically signed by: Rosalina Carroll MD, [facility]([phone]), at 05/06/2021 5:29 PM Mat Casper MD [...] TEST ORDERABLES [facility] [place] [address] * POCT Glucose (05/06/2021 12:11 PM EDT) Glucose, POC 196 65 - 199 mg/dL [facility] Comment: Supplemental ranges: <140 mg/dL before meals <180 mg/dL all other times of the day Blood 05/06/2021 12:1 1 PM EDT 05/06/2021 12:11 PM EDT Mat Casper MD POINT OF CARE TEST ORDERABLES [facility] [place] [address] * POCT Glucose (05/06/2021 11:28 AM EDT) Glucose, POC 175 65 - 199 mg/dL [facility] Comment: Supplemental ranges: <140 mg/dL before meals <180 mg/dL all other times of the day Blood 05/06/2021 11:2 8 AM EDT 05/06/2021 11:28 AM EDT Mat Casper MD POINT OF CARE TEST ORDERABLES Performing Organization Address City/[facility]/ZIP Co de Phone Number [facility] [place] [address] * POCT Glucose (05/06/2021 9:11 AM EDT) Glucose, POC 167 65 - 199 mg/dL [facility] Comment: Supplemental ranges: <140 mg/dL before meals <180 mg/dL all other times of the day Blood 05/06/2021 9:11 AM EDT 05/06/2021 9:11 AM EDT Mat Casper MD POINT OF CARE TEST ORDERABLES Performing Organization Address [facility] Co de Phone Number [facility] [place] [address] * POCT Glucose (05/06/2021 3:46 AM EDT) Glucose, POC 187 65 - 199 mg/dL [facility] Comment: Supplemental ranges: <140 mg/dL before meals <180 mg/dL all other times of the day Blood 05/06/2021 3:46 AM EDT 05/06/2021 3:46 AM EDT Mat Casper MD POINT OF CARE TEST ORDERABLES Performing Organization Address [facility] Co de Phone Number [facility] [facility] [place] [address] * POCT Glucose (05/05/2021 11:45 PM EDT) Glucose, POC 198 65 - 199 mg/dL [facility] Comment: Supplemental ranges: <140 mg/dL before meals <180 mg/dL all other times of the day Blood 05/05/2021 11:4 5 PM EDT 05/05/2021 11:45 PM EDT Mat Casper MD POINT OF CARE TEST ORDERABLES [facility] [place] [address] * POCT Glucose (05/05/2021 10:01 PM EDT) Glucose, POC 195 65 - 199 mg/dL [facility] Comment: Supplemental ranges: <140 mg/dL before meals <180 mg/dL all other times of the day Blood 05/05/2021 10:0 1 PM EDT 05/05/2021 10:01 PM EDT Mat Casper MD POINT OF CARE TEST ORDERABLES Performing Organization Address [facility] Co de Phone Number [facility] [place] [address] * (ABNORMAL) POCT Glucose (05/05/2021 7:19 PM EDT) Glucose, POC 256(H) 65 - 199 mg/dL [facility] Comment: Supplemental ranges: <140 mg/dL before meals <180 mg/dL all other times of the day Blood 05/05/2021 7:19 PM EDT 05/05/2021 7:19 PM EDT Mat Casper MD POINT OF CARE TEST ORDERABLES Performing Organization Address [facility] Co de Phone Number [facility] [place] [address] * POCT Glucose (05/05/2021 4:24 PM EDT) Glucose, POC 198 65 - 199 mg/dL [facility] Comment: Supplemental ranges: <140 mg/dL before meals <180 mg/dL all other times of the day Blood 05/05/2021 4:24 PM EDT 05/05/2021 4:24 PM EDT Mat Casper MD POINT OF CARE TEST ORDERABLES Performing Organization Address City/[facility]/ZIP Co de Phone Number [facility] [place] [address] * (ABNORMAL) POCT Glucose (05/05/2021 12:13 PM EDT) Glucose, POC 210(H) 65 - 199 mg/dL [facility] Comment: Supplemental ranges: <140 mg/dL before meals <180 mg/dL all other times of the day Blood 05/05/2021 12:1 3 PM EDT 05/05/2021 12:13 PM EDT Mat Casper MD POINT OF CARE TEST ORDERABLES Performing Organization Address City/[facility]/ZIP Co de Phone Number [facility] [place] [address] * POCT Glucose (05/05/2021 8:01 AM EDT) Glucose, POC 134 65 - 199 mg/dL [facility] Comment: Supplemental ranges: <140 mg/dL before meals <180 mg/dL all other times of the day Blood 05/05/2021 8:01 AM EDT 05/05/2021 8:01 AM EDT Mat Casper MD POINT OF CARE TEST ORDERABLES Performing Organization Address City/[facility]/ZIP Co de Phone Number [facility] [place] [address] * POCT Glucose (05/05/2021 4:14 AM EDT) Glucose, POC 119 65 - 199 mg/dL [facility] Comment: Supplemental ranges: <140 mg/dL before meals <180 mg/dL all other times of the day Blood 05/05/2021 4:14 AM EDT 05/05/2021 4:14 AM EDT Mat Casper MD POINT OF CARE TEST ORDERABLES [facility] [place] [address] * POCT Glucose (05/04/2021 11:55 PM EDT) Glucose, POC 156 65 - 199 mg/dL [facility] Comment: Supplemental ranges: <140 mg/dL before meals <180 mg/dL all other times of the day Blood 05/04/2021 11:5 5 PM EDT 05/04/2021 11:55 PM EDT Mat Casper MD POINT OF CARE TEST ORDERABLES [facility] [place] [address] * (ABNORMAL) POCT Glucose (05/04/2021 7:28 PM EDT) Glucose, POC 212(H) 65 - 199 mg/dL [facility] Comment: Supplemental ranges: <140 mg/dL before meals <180 mg/dL all other times of the day Blood 05/04/2021 7:28 PM EDT 05/04/2021 7:28 PM EDT Mat Casper MD POINT OF CARE TEST ORDERABLES [facility] [place] [address] * POCT Glucose (05/04/2021 5:35 PM EDT) Glucose, POC 175 65 - 199 mg/dL [facility] Comment: Supplemental ranges: <140 mg/dL before meals <180 mg/dL all other times of the day Blood 05/04/2021 5:35 PM EDT 05/04/2021 5:35 PM EDT Mat Casper MD POINT OF CARE TEST ORDERABLES [facility] [place] [address] * POCT Glucose (05/04/2021 11:13 AM EDT) Glucose, POC 178 65 - 199 mg/dL [facility] Comment: Supplemental ranges: <140 mg/dL before meals <180 mg/dL all other times of the day Blood 05/04/2021 11:1 3 AM EDT 05/04/2021 11:13 AM EDT Mat Casper MD POINT OF CARE TEST ORDERABLES Performing Organization Address [facility] Co de Phone Number [facility] [place] [address] * POCT Glucose (05/04/2021 7:40 AM EDT) Glucose, POC 131 65 - 199 mg/dL [facility] Comment: Supplemental ranges: <140 mg/dL before meals <180 mg/dL all other times of the day Blood 05/04/2021 7:40 AM EDT 05/04/2021 7:40 AM EDT Mat Casper MD POINT OF CARE TEST ORDERABLES Performing Organization Address [facility] Co de Phone Number [facility] [place] [address] * Phosphorus (05/04/2021 12:59 AM EDT) Phosphorus 3.0 2.5 - 4.5 mg/dL [facility] Blood 05/04/2021 12:5 9 AM EDT 05/04/2021 1:17 AM EDT Narrative Resulting Agency Comment Spec In Lab Mat Casper MD CHEMISTRY ORDERABL ES Performing Organization Address [facility] Co de Phone Number [facility] [place] [address] * Magnesium (05/04/2021 12:59 AM EDT) Magnesium 0.86 0.69 - 1.07 mmol/L [facility] Blood 05/04/2021 12:5 9 AM EDT 05/04/2021 1:17 AM EDT Narrative Resulting Agency Comment Spec In Lab Mat Casper MD CHEMISTRY ORDERABL ES [facility] [place] [address] * (ABNORMAL) Basic Metabolic Panel (non-fasting) (05/04/2021 [...] MD CHEMISTRY ORDERABL ES Performing Organization Address City/[facility]/ZIP Co de Phone Number [facility] [place] [address] * POCT Glucose (05/03/2021 11:39 PM EDT) Glucose, POC 182 65 - 199 mg/dL [facility] Comment: Supplemental ranges: <140 mg/dL before meals <180 mg/dL all other times of the day Blood 05/03/2021 11:3 9 PM EDT 05/03/2021 11:39 PM EDT Mat Casper MD POINT OF CARE TEST ORDERABLES Performing Organization Address [facility] Co de Phone Number [facility] [place] [address] * (ABNORMAL) POCT Glucose (05/03/2021 8:15 PM EDT) Glucose, POC 240(H) 65 - 199 mg/dL [facility] Comment: Supplemental ranges: <140 mg/dL before meals <180 mg/dL all other times of the day Blood 05/03/2021 8:15 PM EDT 05/03/2021 8:15 PM EDT Mat Casper MD POINT OF CARE TEST ORDERABLES Performing Organization Address City/[facility] Co de Phone Number [facility] [place] [address] * (ABNORMAL) POCT Glucose (05/03/2021 4:14 PM EDT) Glucose, POC 201(H) 65 - 199 mg/dL [facility] Comment: Supplemental ranges: <140 mg/dL before meals <180 mg/dL all other times of the day Blood 05/03/2021 4:14 PM EDT 05/03/2021 4:14 PM EDT Mat Casper MD POINT OF CARE TEST ORDERABLES [facility] [place] [address] * POCT Glucose (05/03/2021 12:03 PM EDT) Glucose, POC 197 65 - 199 mg/dL [facility] Comment: Supplemental ranges: <140 mg/dL before meals <180 mg/dL all other times of the day Blood 05/03/2021 12:0 3 PM EDT 05/03/2021 12:03 PM EDT Mat Casper MD POINT OF CARE TEST ORDERABLES Performing Organization Address City/[facility]/ZIP Co de Phone Number [facility] [place] [address] * POCT Glucose (05/03/2021 7:49 AM EDT) Glucose, POC 133 65 - 199 mg/dL [facility] Comment: Supplemental ranges: <140 mg/dL before meals <180 mg/dL all other times of the day Blood 05/03/2021 7:49 AM EDT 05/03/2021 7:49 AM EDT Mat Casper MD POINT OF CARE TEST ORDERABLES [facility] [place] [address] * Phosphorus (05/03/2021 1:00 AM EDT) Phosphorus 3.1 2.5 - 4.5 mg/dL [facility] Blood 05/03/2021 1:00 AM EDT 05/03/2021 1:24 AM EDT Narrative Resulting Agency Comment Spec In Lab Mat Casper MD CHEMISTRY ORDERABL ES Performing Organization Address [facility] Co de Phone Number [facility] [place] [address] * Magnesium (05/03/2021 1:00 AM EDT) Pathologist [facility] Magnesium 0.90 0.69 - 1.07 mmol/L [facility] Blood 05/03/2021 1:00 AM EDT 05/03/2021 1:24 AM EDT Narrative Resulting Agency Comment Spec In Lab Mat Casper MD CHEMISTRY ORDERABL ES Performing Organization Address [facility] Co de Phone Number [facility] [place] [address] * (ABNORMAL) Basic Metabolic Panel (non-fasting) (05/03/2021 1:00 AM EDT) Pathologist [facility] Glucose 138 65 - 199 mg/dL [facility] [...] ORDERABL ES [facility] [place] [address] * POCT Glucose (05/02/2021 8:03 PM EDT) Glucose, POC 195 65 - 199 mg/dL [facility] Comment: Supplemental ranges: <140 mg/dL before meals <180 mg/dL all other times of the day Blood 05/02/2021 8:03 PM EDT 05/02/2021 8:03 PM EDT Mat Casper MD POINT OF CARE TEST ORDERABLES [facility] [place] [address] * POCT Glucose (05/02/2021 4:09 PM EDT) Glucose, POC 195 65 - 199 mg/dL [facility] Comment: Supplemental ranges: <140 mg/dL before meals <180 mg/dL all other times of the day Blood 05/02/2021 4:09 PM EDT 05/02/2021 4:09 PM EDT Mat Casper MD POINT OF CARE TEST ORDERABLES [facility] [place] [address] * POCT Glucose (05/02/2021 12:36 PM EDT) Glucose, POC 175 65 - 199 mg/dL [facility] Comment: Supplemental ranges: <140 mg/dL before meals <180 mg/dL all other times of the day Blood 05/02/2021 12:3 6 PM EDT 05/02/2021 12:36 PM EDT Mat Casper MD POINT OF CARE TEST ORDERABLES Performing Organization Address City/[facility] Co de Phone Number [facility] [place] [address] * (ABNORMAL) POCT Glucose (05/02/2021 11:33 AM EDT) Glucose, POC 210(H) 65 - 199 mg/dL [facility] Comment: Supplemental ranges: <140 mg/dL before meals <180 mg/dL all other times of the day Blood 05/02/2021 11:3 3 AM EDT 05/02/2021 11:33 AM EDT Mat Casper MD POINT OF CARE TEST ORDERABLES Performing Organization Address City/[facility] Co de Phone Number [facility] [place] [address] * (ABNORMAL) Differential, Automated (05/02/2021 7:49 AM EDT) Neutrophil % 77.8 % [facility] Neutrophil Absolute 7.00(H) 1.70 - 6.10 x10(3)/[facility] Lymph % 11.9 % [facility] Lymphocytes Abs 1.1 0.9 - 3.2 x10(3)/[facility] Monocyte % 6.6 % [facility] Monocyte Abs 0.6 0.3 - 0.9 x10(3)/[facility] Eos % 2.4 % [facility] Eosinophils Abs 0.2 0.0 - 0.4 x10(3)/[facility] Basophil % 0.6 % [facility] Baso Absolute 0.0 0.0 - 0.1 x10(3)/[facility] Immature Gran % 0.70 % [facility] Comment: Immature granulocytes(IG's)percentage and absolute count will include metamyelocytes, myelocytes, and promyelocytes. Blood smears from CBCs yielding IG's will be scanned manually for concordance. If this scan disagrees with the automated IG or if promyelocytes are noted, a manual differential will be performed. Immature Gran Absolute 0.06(H) 0.00 - 0.04 x10(3)/[facility] Blood 05/02/2021 7:49 AM EDT 05/02/2021 8:02 AM EDT Narrative Resulting Agency Comment Spec In Lab Samreen Moreno MD HEMATOLOGY ORDERAB LES [facility] [place] [address] * (ABNORMAL) Hemogram (05/02/2021 7:49 AM EDT) White Blood Cell 9.0 4.0 - 9.5 x10(3)/[facility] Red Blood Cell 4.14(L) 4.58 - 5.54 x10(6)/mc L [facility] Platelet 175 145 - 357 x10(3)/mc L [facility] RDW Standard Deviation 42.6 36.0 - 45.0 fL [facility] [...] MD HEMATOLOGY ORDERAB LES Performing Organization Address City/[facility]/ZIP Co de Phone Number [facility] [place] [address] * (ABNORMAL) Phosphorus (05/02/2021 7:49 AM EDT) Phosphorus 2.3(L) 2.5 - 4.5 mg/dL [facility] Blood 05/02/2021 7:49 AM EDT 05/02/2021 8:02 AM EDT Narrative Resulting Agency Comment Spec In Lab Mat Casper MD CHEMISTRY ORDERABL ES Performing Organization Address City/[facility]/ZIP Co de Phone Number [facility] [place] [address] * Magnesium (05/02/2021 7:49 AM EDT) Magnesium 0.84 0.69 - 1.07 mmol/L [facility] Blood 05/02/2021 7:49 AM EDT 05/02/2021 8:02 AM EDT Narrative Resulting Agency Comment Spec In Lab Mat Casper MD CHEMISTRY ORDERABL ES [facility] [place] [address] * (ABNORMAL) Basic Metabolic Panel (non-fasting) (05/02/2021 7:49 AM EDT) Glucose 175 65 - 199 mg/dL [facility] [...] MD CHEMISTRY ORDERABL ES Performing Organization Address [facility] Co de Phone Number [facility] [place] [address] * POCT Glucose (05/02/2021 7:41 AM EDT) Glucose, POC 163 65 - 199 mg/dL [facility] Comment: Supplemental ranges: <140 mg/dL before meals <180 mg/dL all other times of the day Blood 05/02/2021 7:41 AM EDT 05/02/2021 7:41 AM EDT Mat Casper MD POINT OF CARE TEST ORDERABLES Performing Organization Address [facility] Co de Phone Number [facility] [place] [address] * POCT Glucose (05/02/2021 3:48 AM EDT) Glucose, POC 151 65 - 199 mg/dL [facility] Comment: Supplemental ranges: <140 mg/dL before meals <180 mg/dL all other times of the day Blood 05/02/2021 3:48 AM EDT 05/02/2021 3:48 AM EDT Mat Casper MD POINT OF CARE TEST ORDERABLES Performing Organization Address City/[facility] Co de Phone Number [facility] [place] [address] * (ABNORMAL) POCT Glucose (05/01/2021 11:33 PM EDT) Glucose, POC 206(H) 65 - 199 mg/dL [facility] Comment: Supplemental ranges: <140 mg/dL before meals <180 mg/dL all other times of the day Blood 05/01/2021 11:3 3 PM EDT 05/01/2021 11:33 PM EDT Mat Casper MD POINT OF CARE TEST ORDERABLES [facility] [place] [address] * POCT Glucose (05/01/2021 7:53 PM EDT) Glucose, POC 183 65 - 199 mg/dL [facility] Comment: Supplemental ranges: <140 mg/dL before meals <180 mg/dL all other times of the day Blood 05/01/2021 7:53 PM EDT 05/01/2021 7:53 PM EDT Mat Casper MD POINT OF CARE TEST ORDERABLES [facility] [place] [address] * POCT Glucose (05/01/2021 4:04 PM EDT) Glucose, POC 141 65 - 199 mg/dL [facility] Comment: Supplemental ranges: <140 mg/dL before meals <180 mg/dL all other times of the day Blood 05/01/2021 4:04 PM EDT 05/01/2021 4:04 PM EDT Mat Casper MD POINT OF CARE TEST ORDERABLES [facility] [place] [address] * POCT Glucose (05/01/2021 3:22 PM EDT) Glucose, POC 146 65 - 199 mg/dL [facility] Comment: Supplemental ranges: <140 mg/dL before meals <180 mg/dL all other times of the day Blood 05/01/2021 3:22 PM EDT 05/01/2021 3:22 PM EDT Mat Casper MD POINT OF CARE TEST ORDERABLES [facility] [place] [address] * POCT Glucose (05/01/2021 12:10 PM EDT) Glucose, POC 158 65 - 199 mg/dL [facility] Comment: Supplemental ranges: <140 mg/dL before meals <180 mg/dL all other times of the day Blood 05/01/2021 12:1 0 PM EDT 05/01/2021 12:10 PM EDT Mat Casper MD POINT OF CARE TEST ORDERABLES [facility] [place] [address] * POCT Glucose (05/01/2021 7:38 AM EDT) Glucose, POC 179 65 - 199 mg/dL [facility] Comment: Supplemental ranges: <140 mg/dL before meals <180 mg/dL all other times of the day Blood 05/01/2021 7:38 AM EDT 05/01/2021 7:38 AM EDT Mat Casper MD POINT OF CARE TEST ORDERABLES [facility] [place] [address] * (ABNORMAL) POCT Glucose (05/01/2021 3:22 AM EDT) [facility] Glucose, POC 230(H) 65 - 199 mg/dL [facility] Comment: Supplemental ranges: <140 mg/dL before meals <180 mg/dL all other times of the day Blood 05/01/2021 3:22 AM EDT 05/01/2021 3:22 AM EDT Mat Casper MD POINT OF CARE TEST ORDERABLES Performing Organization Address City/[facility]/ZIP Co de Phone Number [facility] [place] [address] * (ABNORMAL) Albumin Level (05/01/2021 12:59 AM EDT) [facility] Albumin 3.1(L) 3.2 - 5.2 g/dL [facility] Blood Venous Draw / Unknown 05/01/2021 12:59 AM EDT 05/01/2021 1:19 AM EDT Narrative Resulting Agency Comment Spec In Lab Stephy Bianchi MD CHEMISTRY ORDERABLES Performing Organization Address City/[facility]/ZIP Co de Phone Number [facility] [place] [address] * (ABNORMAL) Differential, Automated (05/01/2021 12:59 AM EDT) [facility] Neutrophil % 73.0 % [facility] Neutrophil Absolute 6.54(H) 1.70 - 6.10 x10(3)/mc L [facility] Lymph % 18.3 % [facility] Lymphocytes Abs 1.6 0.9 - 3.2 x10(3)/mc L [facility] Monocyte % 7.1 % [facility] Monocyte Abs 0.6 0.3 - 0.9 x10(3)/mc L [facility] Eos % 0.8 % [facility] Eosinophils Abs 0.1 0.0 - 0.4 x10(3)/mc L [facility] Basophil % 0.4 % [facility] Baso Absolute 0.0 0.0 - 0.1 x10(3)/[facility] Immature Gran % 0.40 % [facility] Comment: Immature granulocytes(IG's)percentage and absolute count will include metamyelocytes, myelocytes, and promyelocytes. Blood smears from CBCs yielding IG's will be scanned manually for concordance. If this scan disagrees with the automated IG or if promyelocytes are noted, a manual differential will be performed. Immature Gran Absolute 0.04 0.00 - 0.04 x10(3)/[facility] Blood 05/01/2021 12:5 9 AM EDT 05/01/2021 1:15 AM EDT Narrative Resulting Agency Comment Spec In Lab Samreen Moreno MD HEMATOLOGY ORDERAB LES Performing Organization Address City/State/[facility] Co de Phone Number [facility] [place] [address] * (ABNORMAL) Hemogram (05/01/2021 12:59 AM EDT) White Blood Cell 9.0 4.0 - 9.5 x10(3)/[facility] Red Blood Cell 4.15(L) 4.58 - [...] HOSPITAL LABOR[facility]ORY Platelet 154 145 - 357 x10(3)/ L [facility] RDW [...] MD HEMATOLOGY ORDERAB LES Performing Organization Address [facility]/ZIP Co de Phone Number [facility] [place] [address] * (ABNORMAL) Phosphorus (05/01/2021 12:59 AM EDT) Phosphorus 2.4(L) 2.5 - 4.5 mg/dL [facility] Blood 05/01/2021 12:5 9 AM EDT 05/01/2021 1:15 AM EDT Narrative Resulting Agency Comment Spec In Lab Mat Casper MD CHEMISTRY ORDERABL ES Performing Organization Address [facility] Co de Phone Number [facility] [place] [address] * Magnesium (05/01/2021 12:59 AM EDT) Magnesium 0.82 0.69 - 1.07 mmol/L [facility] Blood 05/01/2021 12:5 9 AM EDT 05/01/2021 1:15 AM EDT Narrative Resulting Agency Comment Spec In Lab Mat Casper MD CHEMISTRY ORDERABL ES Performing Organization Address [facility] Co de Phone Number [facility] [place] [address] * (ABNORMAL) Basic Metabolic Panel (non-fasting) (05/01/2021 [...] MD CHEMISTRY ORDERABL ES Performing Organization Address City/[facility] Co de Phone Number [facility] [place] [address] * POCT Glucose (04/30/2021 11:55 PM EDT) Glucose, POC 174 65 - 199 mg/dL [facility] Comment: Supplemental ranges: <140 mg/dL before meals <180 mg/dL all other times of the day Blood 04/30/2021 11:5 5 PM EDT 04/30/2021 11:55 PM EDT Mat Casper MD POINT OF CARE TEST ORDERABLES Performing Organization Address [facility] Co de Phone Number [facility] [place] [address] * POCT Glucose (04/30/2021 7:45 PM EDT) Glucose, POC 156 65 - 199 mg/dL [facility] Comment: Supplemental ranges: <140 mg/dL before meals <180 mg/dL all other times of the day Blood 04/30/2021 7:45 PM EDT 04/30/2021 7:45 PM EDT Mat Casper MD POINT OF CARE TEST ORDERABLES Performing Organization Address [facility] Co de Phone Number [facility] [place] [address] * POCT Glucose (04/30/2021 4:02 PM EDT) Glucose, POC 154 65 - 199 mg/dL [facility] Comment: Supplemental ranges: <140 mg/dL before meals <180 mg/dL all other times of the day Blood 04/30/2021 4:02 PM EDT 04/30/2021 4:02 PM EDT Mat Casper MD POINT OF CARE TEST ORDERABLES [facility] [place] [address] * POCT Glucose (04/30/2021 11:41 AM EDT) Glucose, POC 163 65 - 199 mg/dL [facility] Comment: Supplemental ranges: <140 mg/dL before meals <180 mg/dL all other times of the day Blood 04/30/2021 11:4 1 AM EDT 04/30/2021 11:41 AM EDT Mat Casper MD POINT OF CARE TEST ORDERABLES Performing Organization Address [facility] de Phone Number [facility] [place] [address] * (ABNORMAL) POCT Glucose (04/30/2021 8:04 AM EDT) Glucose, POC 205(H) 65 - 199 mg/dL [facility] Comment: Supplemental ranges: <140 mg/dL before meals <180 mg/dL all other times of the day Blood 04/30/2021 8:04 AM EDT 04/30/2021 8:04 AM EDT Mat Casper MD POINT OF CARE TEST ORDERABLES Performing Organization Address [facility] de Phone Number [facility] [place] [address] * POCT Glucose (04/30/2021 6:18 AM EDT) Glucose, POC 164 65 - 199 mg/dL [facility] Comment: Supplemental ranges: <140 mg/dL before meals <180 mg/dL all other times of the day Blood 04/30/2021 6:18 AM EDT 04/30/2021 6:18 AM EDT Mat Casper MD POINT OF CARE TEST ORDERABLES Performing Organization Address City/[facility] Co de Phone Number [facility] [place] [address] * (ABNORMAL) POCT Glucose (04/30/2021 3:27 AM EDT) Glucose, POC 245(H) 65 - 199 mg/dL [facility] Comment: Supplemental ranges: <140 mg/dL before meals <180 mg/dL all other times of the day Blood 04/30/2021 3:27 AM EDT 04/30/2021 3:27 AM EDT Mat Casper MD POINT OF CARE TEST ORDERABLES [facility] [place] [address] * (ABNORMAL) POCT Glucose (04/30/2021 1:25 AM EDT) Glucose, POC 264(H) 65 - 199 mg/dL [facility] Comment: Supplemental ranges: <140 mg/dL before meals <180 mg/dL all other times of the day Blood 04/30/2021 1:25 AM EDT 04/30/2021 1:25 AM EDT Mat Casper MD POINT OF CARE TEST ORDERABLES [facility] [place] [address] * (ABNORMAL) Hemoglobin A1c (04/30/2021 12:56 AM [...] Mellitus, Diabetes Care 2013; 36: Suppl. 1, K17-27 Estimated Average Glucose 153 mg/dL [facility] [...] into estimated average glucose values. ??Diabetes Care 2008:31(8):7606-8021. Blood Venous Draw / Unknown 04/30/2021 12:56 AM EDT 04/30/2021 8:50 AM EDT Narrative Resulting Agency Comment Spec In Lab Milagros Roy APRN CHEMISTRY ORDERABLE S [facility] [place] [address] * (ABNORMAL) Differential, Automated (04/30/2021 12:56 AM EDT) Neutrophil % 89.3 % [facility] Neutrophil Absolute 11.27(H) 1.70 - 6.10 x10(3)/mc L [facility] Lymph % 4.7 % [facility] Lymphocytes Abs 0.6(L) 0.9 - 3.2 x10(3)/[facility] Monocyte % 5.3 % [facility] Monocyte Abs 0.7 0.3 - 0.9 x10(3)/[facility] Eos % 0.0 % [facility] Eosinophils Abs 0.0 0.0 - 0.4 x10(3)/[facility] Basophil % 0.2 % [facility] Baso Absolute 0.0 0.0 - 0.1 x10(3)/[facility] Immature Gran % 0.50 % [facility] Comment: Immature granulocytes(IG's)percentage and absolute count will include metamyelocytes, myelocytes, and promyelocytes. Blood smears from CBCs yielding IG's will be scanned manually for concordance. If this scan disagrees with the automated IG or if promyelocytes are noted, a manual differential will be performed. Immature Gran Absolute 0.06(H) 0.00 - 0.04 x10(3)/[facility] Blood 04/30/2021 12:5 6 AM EDT 04/30/2021 1:14 AM EDT Narrative Resulting Agency Comment Spec In Lab Samreen Moreno MD HEMATOLOGY ORDERAB LES [facility] [place] [address] * (ABNORMAL) Hemogram (04/30/2021 12:56 AM EDT) White Blood Cell 12.6(H) 4.0 - 9.5 x10(3)/[facility] Red Blood Cell 4.49(L) 4.58 - 5.54 x10(6)/[facility] Hemoglobin 12.4(L) 13.7 - 16.5 g/dL [...] RDW Standard Deviation 42.4 36.0 - 45.0 [facility] RDW coefficient of variation 13.7 [...] MD HEMATOLOGY ORDERAB LES Performing Organization Address City/[facility]/ZIP Co de Phone Number [facility] [place] [address] * Phosphorus (04/30/2021 12:56 AM EDT) Phosphorus 3.6 2.5 - 4.5 mg/dL [facility] Blood 04/30/2021 12:5 6 AM EDT 04/30/2021 1:15 AM EDT Narrative Resulting Agency Comment Spec In Lab Mat Casper MD CHEMISTRY ORDERABL ES Performing Organization Address [facility]/ZIP Co de Phone Number [facility] [place] [address] * Magnesium (04/30/2021 12:56 AM EDT) Magnesium 0.77 0.69 - 1.07 mmol/L [facility] Blood 04/30/2021 12:5 6 AM EDT 04/30/2021 1:15 AM EDT Narrative Resulting Agency Comment Spec In Lab Mat Casper MD CHEMISTRY ORDERABL ES [facility] [place] [address] * (ABNORMAL) Basic Metabolic Panel (non-fasting) (04/30/2021 [...] MD CHEMISTRY ORDERABL ES Performing Organization Address [facility] Co de Phone Number [facility] [place] [address] * (ABNORMAL) POCT Glucose (04/29/2021 11:31 PM EDT) Glucose, POC 261(H) 65 - 199 mg/dL [facility] Comment: Supplemental ranges: <140 mg/dL before meals <180 mg/dL all other times of the day Blood 04/29/2021 11:3 1 PM EDT 04/29/2021 11:31 PM EDT Mat Casper MD POINT OF CARE TEST ORDERABLES Performing Organization Address [facility] Phone Number [facility] [place] [address] * XR Abdomen 1 view (Generic) (04/29/2021 [...] have questions please contact the health health and social care teacher that requested your imaging first. ? Electronically signed by: Keith Marinelli MD, [facility] ([phone]), at 04/30/2021 12:38 AM Narrative 04/30/2021 12:38 AM EDT EXAMINATION: XR ABDOMEN 1 VIEW (GENERIC) CLINICAL HISTORY: NGT Placement. Please page ENT Brushing Operator on [employer] at [phone] for the okay [...] CLINICAL HISTORY: NGT Placement. Please page ENT Brushing Operator on [employer] at [phone] the okay to [...] who have questions please contactthe health health and social care teacher that requested your imaging first. Mat Casper MD IMG DX ORDERABLES * Specimen to Pathology (04/29/2021 6:44 PM EDT) AP Specimen 04/29/2021 6:44 PM EDT 04/29/2021 6:44 PM EDT Narrative [facility] - 04/29/2021 6:44 PM EDT Specimen requisition ordered. ??Separate Pathology report to follow Mat Casper MD PATHOLOGY/CYTOLOGY ORDERABLES Performing Organization Address [facility] [place] [address] * Specimen to Pathology (04/29/2021 6:44 PM EDT) AP Specimen 04/29/2021 6:44 PM EDT 04/29/2021 6:44 PM EDT Narrative [facility] - 04/29/2021 6:44 PM EDT Specimen requisition ordered. ??Separate Pathology report to follow Mat Casper MD PATHOLOGY/CYTOLOGY ORDERABLES Performing Organization Address [facility]/[place] [address] * Specimen to Pathology (04/29/2021 6:36 PM EDT) AP Specimen 04/29/2021 6:36 PM EDT 04/29/2021 6:36 PM EDT Narrative [facility] - 04/29/2021 6:36 PM EDT Specimen requisition ordered. ??Separate Pathology report to follow Mat Casper MD PATHOLOGY/CYTOLOGY ORDERABLES Performing Organization Address City/[facility]/[place] [address] * Specimen to Pathology (04/29/2021 6:36 PM EDT) AP Specimen 04/29/2021 6:36 PM EDT 04/29/2021 6:36 PM EDT Narrative [facility] - 04/29/2021 6:36 PM EDT Specimen requisition ordered. ??Separate Pathology report to follow Mat Casper MD PATHOLOGY/CYTOLOGY ORDERABLES Performing Organization Address [facility]/ZIP Co de Phone Number [facility] [place] [address] * Specimen to Pathology (04/29/2021 6:36 PM EDT) AP Specimen 04/29/2021 6:36 PM EDT 04/29/2021 6:36 PM EDT Narrative [facility] - 04/29/2021 6:36 PM EDT Specimen requisition ordered. ??Separate Pathology report to follow Mat Casper MD PATHOLOGY/CYTOLOGY ORDERABLES Performing Organization Address [facility] Co de Phone Number [facility] [place] [address] * Specimen to Pathology (04/29/2021 6:36 PM EDT) AP Specimen 04/29/2021 6:36 PM EDT 04/29/2021 6:36 PM EDT Narrative [facility] - 04/29/2021 6:36 PM EDT Specimen requisition ordered. ??Separate Pathology report to follow Mat Casper MD PATHOLOGY/CYTOLOGY ORDERABLES Performing Organization Address [facility] [place] [address] * Specimen to Pathology (04/29/2021 6:36 PM EDT) AP Specimen 04/29/2021 6:36 PM EDT 04/29/2021 6:36 PM EDT Narrative [facility] - 04/29/2021 6:36 PM EDT Specimen requisition ordered. ??Separate Pathology report to follow Mat Casper MD PATHOLOGY/CYTOLOGY ORDERABLES Performing Organization Address City/[facility]/[place] [address] * Specimen to Pathology (04/29/2021 6:20 PM EDT) AP Specimen 04/29/2021 6:20 PM EDT 04/29/2021 6:20 PM EDT Narrative [facility] - 04/29/2021 6:20 PM EDT Specimen requisition ordered. ??Separate Pathology report to follow Mat Casper MD PATHOLOGY/CYTOLOGY ORDERABLES Performing Organization Address [facility] [place] [address] * Specimen to Pathology (04/29/2021 3:58 PM EDT) AP Specimen 04/29/2021 3:58 PM EDT 04/29/2021 3:58 PM EDT Narrative [facility] - 04/29/2021 3:58 PM EDT Specimen requisition ordered. ??Separate Pathology report to follow Mat Casper MD PATHOLOGY/CYTOLOGY ORDERABLES Performing Organization Address [facility] [place] [address] * Specimen to Pathology (04/29/2021 3:48 PM EDT) AP Specimen 04/29/2021 3:48 PM EDT 04/29/2021 3:48 PM EDT Narrative [facility] - 04/29/2021 3:48 PM EDT Specimen requisition ordered. ??Separate Pathology report to follow Mat Casper MD PATHOLOGY/CYTOLOGY ORDERABLES Performing Organization Address [facility]/[place] [address] * Specimen to Pathology (04/29/2021 3:43 PM EDT) AP Specimen 04/29/2021 3:43 PM EDT 04/29/2021 3:43 PM EDT Narrative [facility] - 04/29/2021 3:43 PM EDT Specimen requisition ordered. ??Separate Pathology report to follow Mat Casper MD PATHOLOGY/CYTOLOGY ORDERABLES Performing Organization Address [facility] [place] [address] * Specimen to Pathology (04/29/2021 3:41 PM EDT) AP Specimen 04/29/2021 3:41 PM EDT 04/29/2021 3:41 PM EDT [facility] - 04/29/2021 3:41 PM EDT Specimen requisition ordered. ??Separate Pathology report to follow Mat Casper MD PATHOLOGY/CYTOLOGY ORDERABLES Performing Organization Address [facility] Co de Phone Number [facility] [place] [address] * Specimen to Pathology (04/29/2021 3:34 PM EDT) AP Specimen 04/29/2021 3:34 PM EDT 04/29/2021 3:34 PM EDT Narrative [facility] - 04/29/2021 3:34 PM EDT Specimen requisition ordered. ??Separate Pathology report to follow Mat Casper MD PATHOLOGY/CYTOLOGY ORDERABLES Performing Organization Address [facility] [place] [address] * (ABNORMAL) BLOOD GAS 2 ARTERIAL (04/29/2021 [...] [facility] FIO2 Art 48 % [facility] PF Ratio Art 258 [facility] Temp Art 36.5 Celsius [facility] Blood 04/29/2021 3:05 PM EDT 04/29/2021 3:05 PM EDT Mat Casper MD POINT OF CARE TEST ORDERABLES [place] [address] * Specimen to Pathology (04/29/2021 2:41 PM EDT) AP Specimen 04/29/2021 2:41 PM EDT 04/29/2021 2:41 PM EDT Narrative [facility] - 04/29/2021 2:41 PM EDT Specimen requisition ordered. ??Separate Pathology report to follow Mat Casper MD PATHOLOGY/CYTOLOGY ORDERABLES [facility] [place] [address] * Specimen to Pathology (04/29/2021 2:39 PM EDT) AP Specimen 04/29/2021 2:39 PM EDT 04/29/2021 2:39 PM EDT Narrative [facility] - 04/29/2021 2:39 PM EDT Specimen requisition ordered. ??Separate Pathology report to follow Mat Casper MD PATHOLOGY/[place] [address] * Specimen to Pathology (04/29/2021 1:57 PM EDT) AP Specimen 04/29/2021 1:57 PM EDT 04/29/2021 1:57 PM EDT Narrative [facility] - 04/29/2021 1:57 PM EDT Specimen requisition ordered. ??Separate Pathology report to follow Mat Casper MD PATHOLOGY/CYTOLOGY ORDERABLES Performing Organization Address City/[facility]/[place] [address] * Specimen to Pathology (04/29/2021 1:57 PM EDT) AP Specimen 04/29/2021 1:57 PM EDT 04/29/2021 1:57 PM EDT Narrative [facility] - 04/29/2021 1:57 PM EDT Specimen requisition ordered. ??Separate Pathology report to follow Mat Casper MD PATHOLOGY/CYTOLOGY ORDERABLES [facility] [place] [address] * (ABNORMAL) BLOOD GAS 2 ARTERIAL (04/29/2021 [...] [facility] FIO2 Art 94 % [facility] PF Ratio Art 419 [facility] Blood 04/29/2021 12:0 0 PM EDT 04/29/2021 12:00 PM EDT Mat Casper MD POINT OF CARE TEST ORDERABLES [facility] [place] [address] * Surgical Pathology Report (04/29/2021 11:38 AM EDT) Final Diagnosis [id number] ? Location: [facility]; [facility]; A The signing pathologist has (i) examined [...] DO Verified: ??05/07/2021 16:08 ??Pathologist Performed at: ??-[facility] Dept. of Pathology, [place], [place] SY[employer]OPTIC Specimen ? Procedure: ??Total laryngectomy; [...] ?2.3 cm anterior-posterior Growth pattern: Ulcerating Color: [place]-red Location: Supraglottis Does lesion involve vocal cords? [...] Blocks submitted for decalcification: K10-K11 and K14. Ball Holder sections in 19 cassettes as follows: ?K1-K2: [...] 04/29/21 12:02 / DAK Electronically signed by: ?Judy Rucker MD Verified: ??04/29/2021 12:03 ??Pathologist Performed at: ??-[facility] Dept. of Pathology, [place], [place] This intraoperative consultation should be interpreted [...] AM EDT Mat Casper MD PATHOLOGY/[place] [address] * Specimen to Pathology (04/29/2021 11:38 AM EDT) AP Specimen 04/29/2021 11:3 8 AM EDT 04/29/2021 11:38 AM EDT Narrative [facility] - 04/29/2021 11:38 AM EDT Specimen requisition ordered. ??Separate Pathology report to follow Mat Casper MD PATHOLOGY/[place] [address] * COVID-19 PCR (04/29/2021 9:03 AM EDT) [...] using the Simplexa COVID-19 Direct Assay by [employer] as authorized by the FDA issued Emergency [...] Department of Pathology and Laboratory Medicine at [facility], certified under the Clinical Laboratory Improvement Amendments [...] fact sheets at the following FDA website: https://www.fda.gov/medical-devices/xxeuezvvgwt-rpcoiwf-7864-slvsa-38-xzyioedaf- use-a vabdceqgevsgi-ckwlbwd-khqshve/gakzp-jjvwsrzvkaj-itxj SARS-CoV-2 Source [employer] Swab MA RY [facility] Nasopharyngeal Swab 04/30/19 9:03 AM EDT 04/29/2021 12:27 PM EDT Comment:Symptoms->Surveillan ce Narrative Resulting Agency Comment Spec In Lab Mat Casper MD MICROBIOLOGY - GEN ERAL ORDERABLES Performing Organization Address [facility]/ZIP Co de Phone Number [facility] [place] [address] * POCT Glucose (04/29/2021 8:36 AM EDT) Glucose, POC 165 65 - 199 mg/dL [facility] Comment: Supplemental ranges: <140 mg/dL before meals <180 mg/dL all other times of the day Blood 04/29/2021 8:36 AM EDT 04/29/2021 8:36 AM EDT Mat Casper MD POINT OF CARE TEST ORDERABLES Performing Organization Address City/[facility]/ZIP Co de Phone Number [facility] [place] [address] * Type and Screen Validity (04/29/2021 7:49 AM EDT) T&S only valid at [facility] LABORATORY Comment:This Type and Screen result is only valid at the [facility] Blood 04/29/2021 7:49 AM EDT 04/29/2021 7:51 AM EDT Narrative Resulting Agency Comment Spec In Lab Mat Casper MD BLOOD BANK LAB ORD ERABLES Performing Organization Address City/[facility]/ZIP Co de Phone Number [facility] [place] [address] * ABORH Recheck Status (04/29/2021 7:49 AM EDT) ABORH Type Recheck Completed [facility] Blood 04/29/2021 7:49 AM EDT 04/29/2021 7:51 AM EDT Narrative Resulting Agency Comment Spec In Lab Mat Casper MD BLOOD BANK LAB ORD ERABLES Performing Organization Address City/[facility]/ZIP Co de Phone Number [facility] [place] [address] * Antibody screen (04/29/2021 7:49 AM EDT) Ab Screen Interp Negative [facility] Expires at [id number] on: 05/02/2021 [facility] Blood 04/29/2021 7:49 AM EDT 04/29/2021 7:51 AM EDT Narrative Resulting Agency Comment Spec In Lab Mat Casper MD BLOOD BANK LAB ORD ERABLES Performing Organization Address City/[facility]/ZIP Co de Phone Number [facility] [place] [address] * ABO/Rh Typing (04/29/2021 7:49 AM EDT) ABORH Type A Pos [facility] Blood 04/29/2021 7:49 AM EDT 04/29/2021 7:51 AM EDT Narrative Resulting Agency Comment Spec In Lab Mat Casper MD BLOOD BANK LAB ORD ERABLES Performing Organization Address City/[facility]/ZIP Co de Phone Number [facility] [place] [address] documented in this encounter Visit Diagnoses Diagnosis Laryngeal cancer Malignant neoplasm of larynx, unspecified site Dysphagia, unspecified type Status post laryngectomy Other postprocedural status Status post laryngectomy Other postprocedural status Laryngeal cancer Malignant neoplasm of larynx, unspecified site Dysphagia, unspecified type documented in this encounter Admitting Diagnoses Diagnosis Status post laryngectomy Other postprocedural status documented in this encounter Administered Medications Inactive Administered Medications - up to 3 most recent administrations Medication Order MAR Action Action Date Dose Rate Site acetaminophen (Tylenol) tablet 650 mg 650 mg, [...] Given 05/07/2021 5:50 AM EDT 650 mg bisacodyL (Dulcolax) suppository 10 mg 10 mg, Rectal, DAILY PRN, Starting on 05/03/21 at 0843, Until Wed05/07/21 at 2100, Constipation, Give scheduled bowel meds, then start with Miralax, and then bisacodyl suppository in order to achieve one bowel movement every 48 hours without straining., Routine dextrose 10% infusion 250 mL, at 1,000 [...] Given 05/05/2021 8:39 AM EDT 20 mg glucagon (Glucagen) (1 mg/mL) injection solution 1 [...] weight of tube = 37.5 grams., Routine ibuprofen (Motrin) tablet 400 mg 400 mg, [...] Routine Given 05/07/2021 8:34 AM EDT 17 Units Given 05/06/2021 9:37 AM EDT 17 Units [...] Given 05/07/2021 8:32 AM EDT 3 Units ipratropium-albuteroL (Duoneb) 0.5 mg-3 mg(2.5 mg [...] Given 05/07/2021 12:00 PM EDT 10 mg lactulose (Chronulac) (0.67 gram/mL) oral liquid 10 g 10 g, Oral, 2 TIMES DAILY PRN, Starting on Wed05/03/21 at 0844, Until Wed05/07/21 at 2100, Constipation, Routine lidocaine (Lidoderm) 5% patch 1 patch 1 [...] Transdermal, EVERY 24 HOURS, First dose on Sat /19/22 at 2100, Until Discontinued, Remove lidocaine 5% patch lidocaine-EPINEPHrine (1% - 1:100,000) injection ONCE PRN, Starting on Wed04/29/21 at 1220, Until Wed05/07/21 at 2100, Intra-Operative (Intra-Procedure), Routine Given 04/29/2021 12:20 PM EDT 20 mLs lisinopriL (Zestril) tablet 10 mg 10 mg, Per NG tube, DAILY, First dose (after last modification) on Wed05/02/21 at 0900, Until Discontinued, Routine Given 05/07/2021 8:51 AM EDT 10 mg Given 05/06/2021 9:40 AM EDT 10 mg Given 05/05/2021 8:38 AM EDT 10 mg oxyCODONE (Roxicodone) (1 mg/mL) [...] Given 05/03/2021 8:19 AM EDT 17 g sennosides (Senokot) (1.76 mg/mL) oral liquid 17.6 [...] Given 05/06/2021 9:00 AM EDT 5 mLs documented in this encounter Active and Recently [...] Jerry Puckett RN)0940 (Given - Provider: Octavia Arteaga RN)1129 (Given - Provider: Lydia Heart RN)1834 (Given - Provider: Octavia Arteaga RN)2000 (Not Given - Provider: Thaddeus Sabillon RN [...] Discontinued 0839 (Given - Provider: Mica Montemayor RN)2040 (Given - Provider: Margarita Rivera RN) 0947 (Given - Provider: Octavia Arteaga RN)2159 (Given - Provider: Thaddeus Sabillon RN) 1134 (Given - Provider: Yarely Pantoja RN) furosemide (Lasix) tablet 20 mg 20 mg, Per NG tube, DAILY, First dose on Christina 05/01/21 at 1845, Until Discontinued, Routine 0839 (Given - Provider: Mica Montemayor RN) 0940 (Given - Provider: Octavia Arteaga RN) 0851 (Given - Provider: Ocatvia Arteaga RN) hydrALAZINE (Apresoline) tablet 10 mg (COMPLETED) 10 mg, Per NG tube, ONCE, 1 dose, On Wed05/07/21 at 0630, Take with Food, Routine 0624 (Given - Provider: Thaddeus Sabillon RN) hydrALAZINE (Apresoline) tablet 10 mg (COMPLETED) 10 mg, Oral, ONCE, 1 dose, On Wed05/07/21 at 1715, Take with Food, Routine 1649 [...] Christina 05/01/21 at 0900, Until Discontinued, Routine 0852 (Given - Provider: Mica Montemayor RN) 0937 (Given - Provider: Octavia Arteaga RN) 0834 (Given - Provider: Octavia Arteaga RN) insulin [...] Octavia Arteaga RN)1206 (Given - Provider: Octavia Arteaga, NICKIE)1559 (Given - Provider: Octavia Arteaga RN) insulin [...] Mica Montemayor RN)1213 (Given - Provider: Mica Montemayor, NICKIE)1625 (Given - Provider: Mica Montemayor RN)2043 (Given - Provider: Margarita Rivera [...] 2100, Until Discontinued, Remove lidocaine 5% patch 2100 (Patch Not Removed (add comment) - Provider: [...] Arteaga RN) 0851 (Given - Provider: Octavia Arteaag RN) pantothenic Ac-Min Oil-Pet,Hyd (Aquaphor) 41 % [...] RN)2100 (Given - Provider: Cj Johnson RN) 09 (Given - Provider: Octavia Arteaga RN)2100 (Given - Provider: Thaddeus Sabillon RN) sennosides (Senokot) (1.76 mg/mL) oral liquid 17.6 [...] Johnson, NICKIE) 0900 (Given - Provider: Octavia Arteaga, NICKIE)2150 (Given - Provider: Thaddeus Sabillon RN) 0900 (Given - Provider: Octavia Arteaga RN) tube feeding diet (CANCELED) 375 mL, Per NG tube, at 375 mL/hr, 4 TIMES DAILY, First dose (after last modification) on Wed05/01/21 at 1800, Until Discontinued, Administer flushes and check residuals per policy, Which tube feed product? Impact Peptide 1.5 0900 (New Bag - Provider: Mica Montemayor, RN)1300 (New Bag - Provider: Mica Montemayor, RN)1700 (New Bag - Provider: Mica Montemayor, NICKIE)2100 (New Bag - Provider: Cj Johnson, RN) 1139 (New Bag - Provider: Lydia Heart RN - Comment: no pump available)1300 (New Bag - Provider: Octavia rAteaga, NICKIE)1700 (New Bag - Provider: Octavia Arteaga RN)2100 (New Bag - Provider: Thaddeus Sabillon RN) PRN Medication Order 05/05/2021 05/06/2021 05/07/2021 bisacodyL (Dulcolax) suppository 10 mg 10 mg, Rectal, DAILY PRN, Starting on 05/03/21 at 0843, Until 05/07/21 at 2100, Constipation, Give scheduled bowel meds, then start with Miralax, and then bisacodyl suppository in order to achieve one bowel movement every 48 hours without straining., Routine dextrose 10% infusion(Linked Group 3) 250 mL, at 1,000 mL/hr, Intravenous, EVERY 30 MIN PRN, Starting on 04/29/21 at 2134, Until Wed05/07/21 at 2100, For [...] Intravenous, EVERY 2 HOURS PRN, Starting on 05/05/21 at 0532, Until Wed05/07/21 at 2100, High Blood Pressure, for SBP greater than 160, hold if HR <50. If SBP >160 after two doses, page [id number]., Routine 0839 (Given - Provider: Mica Montemayor RN) 0044 (Given - Provider: Jerry Puckett, NICKIE)0454 (Given - Provider: Jerry Puckett, NICKIE)0931 (Given - Provider: Octavia Arteaga RN)1231 (Given - Provider: Octavia Arteaga RN)1657 (Given - Provider: Octavia Arteaga, NICKIE)1900 (Given - Provider: Octavia Arteaga RN)2128 (Given - Provider: Thaddeus Sabillon RN) 0545 (Given - Provider: Thaddeus Sabillon RN)1200 (Given - Provider: Octavia Arteaga RN)1553 (Given - Provider: Octavia Arteaga RN)1627 (Given - Provider: Octavia rAteaga RN) lactulose (Chronulac) (0.67 gram/mL) oral liquid [...] Routine documented in this encounter Care Teams Gas Plant Repairer Relationship Specialty Start Date End Date Weston Tobias PA [address] [place] [address] PCP - General Family Medicine 02/25/21 documented as of this encounter
--- OUTSIDE RECORDS SUMMARY | 2023-12-01 16:02 | XMS_ITS | Encounter Summary ---
[place] [address] Care Team Providers Care Cabinet Maker Name Role Phone Weston Tobias Primary Care Provider [phone]- [phone] Reason for Visit * Speech Therapy (Routine) - Closed Specialty Diagnoses / Procedures Referred By Jose A paz Referred To Contact Speech Therapy Diagnoses Laryngeal cancer Dysphagia, unspecified type Mat Casper MD [facility] [place] [address] [facility] [place] [address] Referral ID Status Reason Start Date Expiration Date V isits Requested Visits Authorized [id number] Closed Evaluate and Treat 04/14/2021 04/14/2022 12 12 Encounter Details Date Type Department Care Team (Latest Contact Info) Description 04/24/2021 2:00 PM EST Office [place] [address] Mila Trotter, CHERISE Dysphagia, oropharyngeal phase; Dysphonia Social History Tobacco Use Types Packs/Day [...] place to sleep or slept in a half-way (including now)? Yes 04/07/2021 Sex and Gender Information Value Date Recorded Sex Assigned at Not on file Gender Identity Not on file Sexual Orientation Not on file documented as of this encounter Miscellaneous Notes * Initial Evaluation - Mila Trotter, AIRCRAFT MECH[employer]IC [employer] - 04/24/2021 2:00 PM EST Speech-Language Pathology OP Modified Barium Swallow Evaluation Patient Name: Reggie Pena . Date of : 1970 Referring Provider: Mat Casper Date Seen by Provider: 04/14/2021 Diagnosis: Dysphagia Date of Onset: 2020 Date of Evaluation: 04/24/2021 Duration of Evaluation 60 minutes Certification Period: 04/24/2021 Total Timed Code Treatment: 0 minutes S: Pt. denies pain at this time. Pt alert and cooperative with study. O: Order received and completed with this 50 y.o. male referred by Mat Casper MD. Dr. Casper's office note from 04/14/21 stated, This patient has a T3 supraglottic cancer He has significant baseline dysphagia with weight loss We will be checking MBS to further characterize We discussed partial laryngopharyngectomy as an option with adjuvant radiation vs possible total laryngectomy. He has met with [facility] and [facility] and the recommendation was to consider surgical management a the primary option for improved swallowing outcomes. I did stress to patient that the easiestoutcome from a swallowing standpoint would be TL. Partial would require significant effort working with [employer], may still end up being g-tube depending at least paritally. Ultimately, even if he elects partial laryngecomy, may still require total given size of tumor and depending on operative findings. The patient will consider these options. In the meantime, will arrange MBS as well as preop consultwith AIRCRAFT MECH[employer]. Will proceed with surgical booking and may cancel should he elect non-surgical treatment. ?? Current Problem / Complaint: Pt notes recent wt loss (almost 100 lbs) due to difficulty swallowing (solids worse than liquids) but also w/ some liquids (states that coffee pepe). States that he has dentures but doesn't ever wear them. States that he eats everything but then later admits that he has been avoiding many solids. Pt notes that when he eats solids, he will need to swallow multiple times, cough some of it back up, and then need to swallow again, sometimes he also tried to have something to drink to clear globus sensation. Relevant Medical History: Pt was seen at [facility] for Barium Swallow on 02/17/21, findings included irregular fillingdeficit in hypopharynx suspicious for mucosal neoplasm. Referred to [facility] for further w/u, see above note from Dr. Casper. Past Medical History: Diagnosis Date ??? Diabetes mellitus ??? Obesity ??? Panniculitis Medications: Current Outpatient Medications Medication Sig Dispense Refill ??? metFORMIN (GLUCOPHAGE) 1,000 mg Tablet Take 1,000 mg by mouth 2 times daily (with meals). ??? glipiZIDE (GLUCOTROL) 10 mg Tablet Take 10 mg by mouth 2 times daily (before meals). ??? enoxaparin (LOVENOX) 40 mg/0.4 mL Syringe Inject 0.4 mLs subcutaneously daily. (Patient not taking: No sig reported) ??? acetaminophen (TYLENOL) 325 mg Tablet Take 2 tablets by mouth every 6 hours as needed for Pain or Fever. (Patient not taking: No sig reported) 30 tablet 1 ??? insulin aspart (NOVOLOG) Solution Inject 5 Units subcutaneously 3 times daily (before meals). (Patient not taking: No sig reported) 10 mL 12 ??? insulin glargine (LANTUS) Solution Inject 28 Units subcutaneously nightly. (Patient not taking:No sig reported) 10 mL 12 ??? lisinopril (PRINIVIL;ZESTRIL) 10 mg Tablet Take 1 tablet by mouth daily. (Patient not taking: No sig reported) 30 tablet 12 ??? nystatin (MYCOSTATIN) Cream Apply topically 2 times daily. (Patient not taking: No sig reported) 30 g 0 No current facility-administered medications for this visit. Current Diet: regular but avoiding certain solids and also coffee and other acidic foods Cognitive-Linguistic Status: alert, Ox3, able to follow directions and respond to questions Respiratory Status: pt on room air Feeding / Oral Care Status: pt independent Seating and Positioning: pt able to stand up with head midline without assistance; pt ambulates independently Oral Peripheral WFL: labial, buccal, lingual, jaw ROM, strength, agility, and sensation Velar elevation and retraction adequate Volitional swallow, throat clear, cough prompt and strong Speech judged to be WNL Difficulties Observed: ?? Edentulous, has dentures but never wears them ?? Decreased hyo-laryngeal excursion to palpation ?? C/o pain in throat ?? Moderately dysphonic Bolus Presentation(s) (all consistencies are mixed with Barium) ?? Thin liquid via cup (single sips, multiple sequential sips) ?? Guymon thick liquid via cup (single sips, multiple sequential sips) ?? Thick puree via spoon ?? Soft solid via spoon ?? Pill alone, then second attempt w/ thin liquid by cup Oral Preparatory Phase Adequate lip closure, no non-volitional loss from oral cavity; adequate bolus cohesion and A-P propulsion w/ liquids and puree Difficulties Revealed: ?? Pt spitting out pill volitionally when unable to swallow ?? Decreased A-P propulsion of bolus w/ soft solids, due to prolonged mastication / tongue pumping Pharyngeal Phase (Lateral View; modified to semi-oblique due to pt's body habitus; some limitation in visualizing through shoulders even in this position) Difficulties Revealed: ?? Premature spillage into valleculae ?? Swallow triggered at vallecular spaces, spillover to pyriform w/ thin liquids ?? Decreased / Delayed laryngeal elevation and closure ?? Repeated deep trace penetration observed with thin liquids and nectar liquids during the swallow, which pt does not consistently cough to clear, and then eventually trickles down past vocal cords and is aspirated ?? Pt also demonstrated deep penetration when attempting to take pill dry (w/o liquids) which he says he often does at home. ?? Weak, non-productive delayed cough after aspiration ?? Moderate - Maximal vallecular and pyriform residue w/ soft solid and pill, pt partially clears w/ 2-3 subsequent swallows, then coughs remainder back up into mouth and swallows 1-2 times again to fully clear Esophageal Phase Unable to visualize well due to body habitus, pt had recent Barium Swallow in OSH, no esophageal abnormalities were reported Modifications Attempted: ?? W/ soft solids and pill, multiple swallows alone, and when paired with liquid assist, were only partially effective in clearing oropharynx of residue; pt only fully clears pharynx by coughing remainder back up into mouth and either swallowing again or spitting it out A: Dx: ?? Moderate-Severe Sensory-Motor Oropharyngeal Dysphagia due to lack of dentition, decreased tongue-base retraction, decreased / delayed laryngeal elevation & depression excursion, impaired pharyngeal constrictor muscle strength and ROM, and decreased pharyngeal sensitivity. . ?? Aspiration / Penetration Scale Score (RosenArti spann et al. Dysphagia, 111995) ??? 1 = no material enters the airway (puree, soft solids) ??? 2 = material enters the airway, does not touch the vocal cords, and is completely ejected ??? 3 = material enters the airway, does not touch the vocal cords, but is not ejected ??? 4 = material enters the airway, contacts the vocal cords, but is ejected (pill) ??? 5 = material enters the airway, contacts the vocal cords, but is not ejected ??? 6 = material enters the airway, passes below the vocal cords, and is ejected ??? 7 = material passes below the vocal cords, is not ejected, but there is effort made to expel material (thin and nectar thick liquids) ??? 8 = material passes below the vocal cords, and there is no attempt to eject it Recommendations: Diet: Safest oral diet would be puree - soft, ground, moist solids, regular liquids (single sip at a time); however remains at risk for aspiration w/ all consistencies Aspiration Precautions / Safe Swallowing Strategies: ?? Upright for all oral intake; avoid drinking from tall cups / bottles that require head tilted back position to finish ?? Small bites and sips ?? Swallow everything in mouth prior to next bite / sip ?? Swallow x2-3, throat clear, then swallow again ?? Alternate solids and liquids ?? Maintain excellent oral care ?? Remain upright for 30 minutes after oral intake Goals: ?? Pt will tolerate least restrictive diet without overt s/s aspiration or dysphagia utilizing therapeutic interventions to improve swallow effectiveness and safety. ?? Pt / family / staff will follow aspiration precautions, diet modifications, and safe swallowing strategies to allow adequate, safe oral intake. P: ?? [facility] Speech Pathology to follow in conjunction w/ ENT clinic. ?? F/u w/ referring provider. ?? Pt to reviewed findings and recommendations w/ referring provider later today. Thank you for this consult with this patient. Please feel free to contact me with any questions or concerns. Mila Trotter MA CCC-AIRCRAFT MECHANIC [employer]RICAL AND RADIO [facility] OP Rehabilitation Medicine [phone] Pager:# [phone] documented in this encounter Plan of Treatment Upcoming Encounters Date Type Department Care Team (Late st Contact Info) Description 02/02/2024 3:00 PM EST Office Visit Radiation Oncology at [address] [address] Ag Cruz MD [facility] [place] [address] Scheduled Referrals Name Type Priority Associated Diagnoses Orde r Schedule Referral to Speech Therapy Outpatient Referral Routine Laryngeal cancer Dysphagia, unspecified type Ordered: 04/14/2021 documented as of this encounter Visit Diagnoses Diagnosis Dysphagia, oropharyngeal phase Dysphonia documented in this encounter Care Teams Cabinet Maker Relationship Specialty Start Date End Date Weston Tobias PA [address] [place] [address] PCP - General Family Medicine 02/25/21 documented as of this encounter
--- OUTSIDE RECORDS SUMMARY | 2023-12-01 16:02 | XMS_ITS | Encounter Summary ---
[place] [address] Care Team Providers Care Associate Merchant Name Role Phone Weston Tobias Primary Care Provider [phone]- [phone] Reason for Referral * Speech Therapy (Routine) - Closed Specialty Diagnoses / Procedures Referred By Jose A paz Referred To Contact Speech Therapy Diagnoses Laryngeal cancer Dysphagia, unspecified type Mat Casper MD [facility] DR [place] [address] Mat Ball SLP [facility] PHYSICAL MEDICINE & [place] [address] Referral ID Status Reason Start Date Expiration Date V isits Requested Visits Authorized [id number] Closed Evaluate and Treat 04/14/2021 04/14/2022 30 30 * Speech Therapy (Routine) - Closed Specialty Diagnoses / Procedures Referred By Jose A paz Referred To Contact Speech Therapy Diagnoses Laryngeal cancer Dysphagia, unspecified type Mat Casper MD [facility] [address] [facility] [place] [address] Referral ID Status Reason Start Date Expiration Date V isits Requested Visits Authorized [id number] Closed Evaluate and Treat 04/14/2021 04/14/2022 12 12 Reason for Visit * Reason Comments Follow-up Encounter Details Date Type Department Care Team (Late st Contact Info) Description 04/14/2021 9:00 AM EST Office [place] [address] Mat Casper MD [facility] [address] Laryngeal cancer; Dysphagia, unspecified type Social History Tobacco Use Types Packs/Day Years Used Date Smoking Tobacco: Every Day Cigarettes 2 24 Smokeless Tobacco: Never Comments:Declines Tobacco ce [...] - Inhaled Oxygen Concentration - - Weight 160.5 kg (353 lb 14.4 oz) 04/14/2021 9:02 AM EST Height 182.9 cm (6') 04/14/2021 9:02 AM EST Body Mass Index 48 04/14/2021 9:02 AM EST documented in this encounter Progress Notes * Tomy Tipton MD - 04/14/2021 9:00 AM EST [facility] OT[facility] AND NECK TUMOR CLINIC FOLLOW UP NOTE Reggie Pena Sr. is a 50 y.o. male followed for: [id number] SCCa of the supraglottic larynx New issues since last visit: Met with Drs. Cruz and Andrea Discussed at head neck tumor board and recommendation for primary surgical resection Continues to have swallowing difficulties Endorses some mild restrictive symptoms in the throat, but no significant airway symptoms Struggling to know what to do to treat his cancer PROBLEM LIST Patient Active Problem List Diagnosis Code ??? Panniculitis M79.3 ??? Diabetes mellitus type 2, uncontrolled (DM) E11.65 ??? Morbid obesity E66.01 ??? Hypertension (HTN) I10 ??? Tobacco abuse Z72.0 ??? 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 Diabetes mellitus ??? Obesity ??? Panniculitis SOCIAL HISTORY Social History Tobacco Use ??? Smoking status: Current Every Day Smoker Packs/day: 2.00 Years: 24.00 Pack years: 48.00 Types: Cigarettes ??? Smokeless tobacco: Never Used ??? Tobacco comment: Declines Tobacco cessasion referral at this time. Substance Use Topics ??? Alcohol use: No Alcohol/week: 0.0 standard drinks Comment: rare alcohol MEDICATIONS Current Outpatient Medications on File Prior to Visit Medication Sig Dispense Refill ??? metFORMIN (GLUCOPHAGE) [...] 30 g 0 No current facility-administered medications on file prior to visit. ALLERGIES No Known Allergies ROS Pertinent positive findings discussed above. No other findings on review of constitutional visual, cardiovascular, respiratory, gastrointestinal, genitourinary, musculoskeletal, dermatologic, neurological, psychiatric, endocrine, hematologic or immunologic systems. PHYSICAL EXAMINATION @WEIGHT@ GENERAL - Well dressed and well nourished. [...] is midline. - Oropharynx symmetric. NECK - Large neck and adenopathy is difficult to palpate - Thyroid gland without masses or asymmetry. - Trachea midline without deviation. - Voice is very hoarse - Skin tags present in neck creases bilaterally NEURO - Cranial nerves II-XII intact and symmetric. - Responds appropriately to questions. PSYCHE - Normal mood and affect. PROCEDURES None performed REVIEW OF IMAGES EXAMINATION: NM PET CT STANDARD PLUS HEAD AND NECK ?? CLINICAL HISTORY: 50-year-old male with dysphagia and 40 pound weight loss and concern for supraglottic tumor on CT neck and flexible laryngoscopy ?? TECHNIQUE: Following IV injection of 93-viukfq-9-deoxyglucose (FDG) a standard uptake of approximately 60 [...] regions. 3. No distant sites of metastasis. EXAMINATION: CT NECK SOFT TISSUE W CONTRAST [...] 3. No evidence of distant regional metastases. ASSESSMENT/RECOMMENDATIONS Reggie Roland Jean Sidhu is a 50 y.o. male with [id number] SCCa of the supraglottic larynx. His case has been discussed in tumor board and the recommendation was for primary surgical resection and adjuvant treatment. We discussed the pros and cons of definitive chemoradiation versus partial laryngectomy versus total laryngectomy. The patient was unsure of which route he would like to pursue at this pointtime and literature was provided to discuss his options. We will plan on surgical resection at thispoint in time and schedule a surgical date. We will also refer the patient for a modified barium swallow and initial assessment with speech therapy to discuss partial versus total laryngectomy. We will plan to have the patient return for follow-up appointment discuss his treatment of choice. I appreciate the opportunity to be involved in Mr. Pena's care. Tomy Tipton MD 04/14/2021 * Mat Casper MD - 04/14/2021 9:00 AM EST [facility] Attending Note Patient was seen and examined with the above resident. I agree with the history, exam findings, andrecommendations. Summary This patient has a T3 supraglottic cancer He has significant baseline dysphagia with weight loss We will be checking MBS to further characterize We discussed partial laryngopharyngectomy as an option with adjuvant radiation vs possible total laryngectomy. He has met with medonc and radonc and the recommendation was to consider surgical management a the primary option for improved swallowing outcomes. I did stress to patient that the easiestoutcome from a swallowing standpoint would be TL. Partial would require significant effort working with CAR COUPLER, may still end up being g-tube depending at least paritally. Ultimately, even if he elects partial laryngecomy, may still require total given size of tumor and depending on operative findings. The patient will consider these options. In the meantime, will arrange MBS as well as preop consultwith CAR COUPLER. Will proceed with surgical booking and may cancel should he elect non-surgical treatment. Time spent in counseling and discussion of the above: 25 minutes I appreciate the opportunity to be involved in Mr. Pena's care. MAT CASPER MD 04/14/2021 documented in this encounter Plan of Treatment Upcoming Encounters Date Type Department Care Team (Late st Contact Info) Description 02/02/2024 3:00 PM EST Office Visit Radiation Oncology at [address] [address] Ag Cruz MD [facility] [place] [address] Scheduled Referrals Name Type Priority Associated Diagnoses Orde r Schedule Referral to Speech Therapy Outpatient Referral Routine Laryngeal cancer Dysphagia, unspecified type Ordered: 04/14/2021 Referral to Speech Therapy Outpatient Referral Routine Laryngeal cancer Dysphagia, unspecified type Ordered: 04/14/2021 documented as of this encounter Results * XR Fluoro Barium [...] who have questions please contact the health anesthesiologist and critical care that requested your imaging first. ? Electronically signed by: Asad Marroquin MD, [facility] ([phone]), at 04/25/2021 10:01 AM Narrative 04/25/2021 10:01 AM EST EXAMINATION: XR [...] patients who have questions please contactthe health anesthesiologist and critical care that requested your imaging first. Electronically signed by: Asad Marroquin MD, [facility]([phone]), at 04/25/2021 10:01 AM Mat Casper MD IMG FLUORO ORDERAB LES documented in this encounter Visit Diagnoses Diagnosis Laryngeal cancer Malignant neoplasm of larynx, unspecified site Dysphagia, unspecified type Laryngeal cancer Malignant neoplasm of larynx, unspecified site Dysphagia, unspecified type documented in this encounter Care Teams Associate Merchant Relationship Specialty Start Date End Date Weston Tobias PA [address] [place] [address] PCP - General Family Medicine 02/25/21 documented as of this encounter
--- OUTSIDE RECORDS SUMMARY | 2023-12-01 16:02 | XMS_ITS | Encounter Summary ---
Author Organization [facility] Address [facility] [place] [address] Care Team Providers Care Wastewater Process Engineer Name Role Phone Weston Tobias Primary Care Provider [phone]- [phone] Reason for Visit * Consultation (Routine) - Closed Specialty Diagnoses / Procedures Referred By Contdavid t Referred To Contact Hematology and Oncology Diagnoses Lesion of throat Vasquez Mckinney PA [facility] [place] [address] St Hem Onc Office [address] [place] [id number] Referral ID Status Reason Start Date Expiration Date V isits Requested Visits Authorized [id number] Closed Consult, Test & Treat 03/28/2021 03/28/2022 1 1 Encounter Details Date Type Department Care Team (Late st Contact Info) Description 04/07/2021 2:30 PM EST Office Visit Hematology/Oncology at [address] [address] Corbin Mendez MD [address] [place] [address] [place] [address] Squamous cell carcinoma of supraglottis Social History [...] Sign Reading Time Taken Comments Blood Pressure 159/89 04/07/2021 2:22 PM EST Pulse 82 04/07/2021 2:22 PM EST Temperature 36.7 ??C (98 ??F) 04/07/2021 2:22 PM EST Respiratory Rate 20 04/07/2021 2:22 PM EST Oxygen Saturation 100% 04/07/2021 2:22 PM EST Inhaled Oxygen Concentration - - Weight 160.6 kg (354 lb) 04/07/2021 2:22 PM EST Height 183 cm (6' 0.05) 04/07/2021 2:22 PM EST Body Mass Index 47.95 04/07/2021 2:22 PM EST documented in this encounter Progress Notes * Corbin Mendez MD - 04/07/2021 2:30 PM EST Images from the original note were not included. Head and Neck Cancer Medical Oncology Patient Active Problem List Diagnosis ??? Squamous cell carcinoma of supraglottis ??? Diabetes mellitus type 2, uncontrolled (DM) HgbA1c 9.7 ??? Morbid obesity ??? Hypertension (HTN) ??? Tobacco abuse ??? Panniculitis With abcess s/p bedside I&D 02/23/14 CC: consult for discussion of the role of chemotherapy in the treatment of newly diagnosed supraglottic carcinoma. Referred by Vasquez Mckinney PA-C and Mat Casper MD. The patient is a 50-year-old with a long smoking history, who comes with a 1 year history of slowlyprogressive L-sided sore throat. He tried to ignore this for a while, but in the past 6 months it is gotten more rapidly progressive, with more difficulty swallowing, increasing vocal hoarseness, andodynophagia. Over the past year he has lost in total about 100 pounds because of the progressive eating impairment. He presented the symptoms to his primary care provider. A modified barium swallow was performed, showing a filling defect in the hypopharynx and the AE folds. He saw Dr. Mulugeta Harman in [place], and a supraglottic tumor was seen. He was referred to our otolaryngology departm ent was seen on 03/20/2021, with office fiberoptic laryngoscopy confirming the finding. He was then taken to the operating room for microlaryngoscopy and biopsies on 03/28/2021. Findings: Grade 1 view with a Dedo laryngoscope [...] The right true cord and false fold did not appear to be involved. Cervical esophagoscopy down to 25 cm from the upper lip demons trated normal esophageal lumen. Tumor does not appear to involve the base of tongue and the base oftongue is soft on palpation. Biopsies demonstrated extensive dysplasia, as well as invasive squamous cell carcinoma, keratinizing type, in the background of carcinoma in situ. He met with Dr. Rolando Cruz of radiation oncology earlier today, where treatment options were discussed. He comes to see me this afternoon to discuss the role of chemotherapy in the management ofthis cancer. He tells me that he will do what ever it takes to get rid of this cancer. He would like to be able to eat again. His current symptoms include dysphagia, occasional choking but no obvious sis aspiration pneumonia, slowly increasing left-sided sore throat, increasingly hoarse voice, and 100 pound weight loss over the past year. He denies referred otalgia. He has no symptoms to suggest metastatic disease. Past medical history: Most notable for morbid obesity, and type 2 diabetes mellitus. His blood sugar is actually been better over the course of this illness to lose weight loss; he is no longer requiring insulin but is taking Metformin and glipizide. He endorses some toe and fingertip neuropathy, and cold intolerance. He has a more distant history of panniculitis, not currently a problem. He denies hearing problems, or history of kidney trouble. Slight peripheral neuropathy as above. Social history: He lives alone in [facility]. He has a number of family members close by,children and grandchildren.. Note that his sdhesoqe-im-vyf is Iesha Yi, one of our cancer centerschedulers. 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 He has a long history of cigarette smoking, is actively cutting back. He denies a history of heavy ethanol use. Physical exam: He is alert, conversant, well-informed, and in good spirits. Voice is hoarse, breathy. He is breathing comfortably with no stridor. Oral exam shows that he is edentulous. Tongue is fully mobile as is the palate. No visible tumor. No trismus Neck exam shows a thick smith, but no palpable adenopathy. There is mild tenderness on palpation ofthe left side of the larynx but no obvious extralaryngeal tumor Axillary lymph node exam is negative Lungs are clear to auscultation and percussion Cardiac exam is normal Abdomen is very obese, with a large pannus. No obvious hepatosplenomegaly or masses. No obvious signs of panniculitis. Extremities notable for 1+ dependent pedal edema. Otherwise normal, with no clubbing or cyanosis Neurologic exam is grossly normal except for phonation. Cranial nerves otherwise normal, no signs of Kin syndrome. Reflexes 1+. Labs: No recent blood work available CT 03/20/2021: bulky supraglottic tumor, spreading to paraglottic tissue: PET/CT 03/31/2021: IMPRESSION 1. Approximately 4 cm FDG avid mass in the left supraglottic larynx extending superiorly into the left lingual tonsil/base of tongue region where crosses midline into the right lingual tonsil region. 2. Small laurita metastases strongly suspected in the bilateral level 2 and left level 3 regions. 3. No distant sites of metastasis. Pathology from [facility]: DIAGNOSIS A - Left false fold, biopsy: [...] Background of squamous cell carcinoma in situ. Impression: 50-year-old long-term smoker presenting with locally advanced supraglottic cancer with nonpalpable radiographically detected bilateral lymphadenopathy, symptomatic with hoarseness, dysphagia and resulting major weight loss, local pain. No airway problems to date. Most significant comorbi dities are obesity and type 2 diabetes mellitus. Plan: 1. We had a long talk about his situation and options for therapy. It is not entirely clear what the best strategy is for him. Certainly total laryngectomy with permanent tracheostomy formation wouldbe oncologically sound, but life- altering; ultimately however this might give him the best chance of regaining swallowing function. A partial laryngectomy may or may not be technically feasible giventhe regional extent of the cancer. This would need to be followed by at least radiation, and possibly chemoradiation depending on pathologic features. Definitive chemoradiation would be oncologicallysound also, but would carry a high risk of long-term swallowing dysfunction. 2. We will review his case in head and neck tumor board this week, and come up with a consensus forrecommendations for him. Follow-up plans will depend on those recommendations. 3. I encouraged him to continue his efforts at getting rid of the cigarettes. Corbin Mendez MD, FACP stable hand Hematology/Oncology Section [place] [phone] Voice recognition software used for this note; please excuse hang gliding instructor errors. I personally reviewed past medical, surgical, family medical histories, reviewed current medications, vital signs, labs, and performed full review of systems. These are documented below the narrativefor clarity and succinctness. No outpatient medications have been marked as taking for the 04/07/21 encounter (Office Visit) with Corbin Mendez MD. Review of Systems: Review of systems is negative for other BOARD CERTIFIED FAMILY PHYSICIAN, bone, pulmonary, cardiac, GI, , extremity, neurologic, endocrine, skin, constitutional, emotional, or functional problems. Vitals Flowsheet Row Admission (Discharged) from 03/28/2021 in Same Day Program at [facility] Weight 145.2 kg (320 lb) Height 182.9 cm (6') BSA (Calculated - sq m) 2.72 sq meters BMI (Calculated) 43.4 Temp 36.2 ??C (97.2 ??F) Temp src Temporal Heart Rate 74 Heart Rate from SpO2 70 bpm Resp 18 BP 148/87 SpO2 99 % Body surface area is 2.86 meters squared. Wt Readings from Last 3 Encounters: 04/07/21 (!) 160.6 kg (354 lb) 04/07/21 (!) 160.6 kg (354 lb) 03/28/21 (!) 145.2 kg (320 lb) No results found for this or any previous visit (from the past 72 hour(s)). ++++++++++++++++++++++++++++++++++++++++++++++++++++ * Elisa Zavala RN - 04/07/2021 2:30 PM EST MEDICAL ONCOLOGY INITIAL NURSING ASSESSMENT ADVANCE DIRECTIVES: In [facility] [ ] Has documents [X ] Will bring in [ ] IF NO: Advance Directive pamphlet provided : Referral to Care Management : PRESENTING SYSTEMS and PATHOLOGY: see md note REVIEW OF SYSTEMS:see md note Prior Radiotherapy: no[X ] Yes[ ]Site Date Facility Prior Chemotherapy: no[X ] Yes[ ] Drug: Oncologist- LastTreatment: NO: YES: Claustrophobia or requires sedation for MRIs X Allergy to CT or MRI contrast agent or iodine or shellfish X Diabetic and on metformin x Metal in body, implanted device, worked with metal, body piercings,braces x Dentures or hearing device Both top and bottom Pacemaker X Difficulty breathing while lying flat X Kidney problems/creatinine X Balance difficulty: [ X ]no [ ]yes At risk for fall: [ ] no [ ] yes If yes, actions implemented to prevent fall. Patient/family instructed to avoid independent ambulation. Use wheelchair and ask for assistance of staff while in the clinic. ADL [ X ] no limits [ ] needs dressing assistance [ ] needs meal assistance Assistive device:[X ]none [ ]cane [ ]walker [ ]wheelchair [ ]other: explain PAIN ASSESSMENT: [5 ] out of 10 Location: throat Description: [ ] Dull [ ] Sharp [ ] Burning [ ] Throbbing [ ] Radiating [ ] Continuous [X ]Intermittent Aggravating Factors: [ ] Movement [ ] Position [ ]Immobility [ ]Other Alleviating Factors: [ ]Medication [ ] Positioning [ ] Other Current Pain Management Plan: [ ]Satisfied [X ] Not satisfied SOCIAL ASSESSMENT: See [facility] social assessment information entered. Support Systems: Iesha (daughter in law) ruthie liriano tina, jason transportation plan: [X ]private vehicle [ ] RCT needs Social Work referral [ ] Unknown at this time needs Social Work referral Barriers to treatment: none Referrals/Interventions:none LEARNING STYLE: Visual and verbal, wants written material and verbal discussion. TEACHING: __ NCI ???Chemotherapy and You?? and folder given __ Specific chemotherapy literature provided and reviewed with patient documented in this encounter Plan of Treatment Upcoming Encounters Date Type Department Care Team (Late st Contact Info) Description 02/02/2024 3:00 PM EST Office Visit Radiation Oncology at [address] [address] Ag Cruz MD [facility] [place] [address] Scheduled Referrals Name Type Priority Associated Diagnoses Order Schedule Referral to Hematology and Oncology Outpatient Referral Routine Lesion of throat Ordered: 03/28/2021 documented as of this encounter Visit Diagnoses Diagnosis Squamous cell carcinoma of supraglottis Malignant neoplasm of supraglottis documented in this encounter Care Teams Wastewater Process Engineer Relationship Specialty Start Date End Date Weston Tobias PA [address] [place] [address] PCP - General Family Medicine 02/25/21 documented as of this encounter
--- OUTSIDE RECORDS SUMMARY | 2023-12-01 16:02 | XMS_ITS | Encounter Summary ---
Author Organization [place] [address] Care Team Providers Care Ballet Dancer Name Role Phone Weston Tobias Primary Care Provider [phone]- [phone] Reason for Referral * Consultation (Routine) - Closed Specialty Diagnoses / Procedures Referred By Jose A paz Referred To Contact Hematology and Oncology Diagnoses Laryngeal cancer Mat Harvey MD [facility] [place] [address] [facility] Hem Onc [address] [place] [address] Referral ID Status Reason Start Date Expiration Date V isits Requested Visits Authorized [id number] Closed Continuity of Care 04/25/2021 04/25/2022 1 1 * Consultation (Routine) - Closed Specialty Diagnoses / Procedures Referred By Jose A paz Referred To Contact General Surgery Diagnoses Laryngeal cancer Mat Harvey MD [facility] [place] [address] [facility] Gen Surgery [address] [place] [address] Referral ID Status Reason Start Date Expiration Date V isits Requested Visits Authorized [id number] Closed Consult, Test & Treat 04/25/2021 04/25/2022 1 1 Reason for Visit * Reason Comments Follow-up Encounter Details Date Type Department Care Team (Late st Contact Info) Description 04/24/2021 4:20 PM EST Office [place] [address] Mat Harvey MD [facility] [place] [address] Laryngeal cancer Social History Tobacco Use Types Packs/Day [...] - Inhaled Oxygen Concentration - - Weight 158.7 kg (349 lb 14.4 oz) 04/24/2021 4:28 PM EST Height 182.9 cm (6') 04/24/2021 4:28 PM EST Body Mass Index 47.45 04/24/2021 4:28 PM EST documented in this encounter Progress Notes * Mat Harvey MD - 04/24/2021 4:20 PM EST [facility] OTOLARYNGOLOGY BRIEF FOLLOW UP NOTE Reggie Pena Sr. is a 50 y.o. male followed for: T3 supraglottic cancer Had MBS and speech evaluation today. Reports and MBS images were reviewed. No changes in breathing and swallowing from last visit. Can go up a flight of stairs and can lay flat without difficulty. ASSESSMENT/RECOMMENDATIONS We reviewed the management of his advanced laryngeal cancer. He could potentially benefit from an open partial laryngectomy (supraglottic) and neck dissections. Would need g-tube. May need to convertto total laryngectomy at the time of the resection if his tumor is more advanced. He understands this and what the implications of total laryngectomy are (stoma, TEP voice, etc). His main goal is cancer eradication. He has been cutting back on smoking, currently down to a few cigarettes per day. He appears to understand the goals of surgery, the potential outcomes (g-tube dependence, need for total laryngectomy). His daughter had questions all of which were answered and his questions were all answered to their satisfaction. Surgery date is not finalize but hopefully within the next two weeks. Time spent in counseling and discussion of the above: 25 minutes I appreciate the opportunity to be involved in Mr. Pena's care. MAT HARVEY MD 04/25/2021 documented in this encounter Plan of Treatment Upcoming Encounters Date Type Department Care Team (Late st Contact Info) Description 02/02/2024 3:00 PM EST Office Visit Radiation Oncology at [address] [address] Ag Curz MD [facility] [place] [address] Scheduled Referrals Name Type Priority Associated Diagnoses Orde r Schedule Referral to General Surgery Outpatient Referral Routine Laryngeal cancer Ordered: 04/25/2021 Referral to Nutrition Services Outpatient Referral Routine Laryngeal cancer Ordered: 04/25/2021 documented as of this encounter Visit Diagnoses Diagnosis Laryngeal cancer Malignant neoplasm of larynx, unspecified site documented in this encounter Care Teams Ballet Dancer Relationship Specialty Start Date End Date Weston Tobias PA [address] [place] [address] PCP - General Family Medicine 02/25/21 documented as of this encounter
--- OUTSIDE RECORDS SUMMARY | 2023-12-01 16:02 | XMS_ITS | Encounter Summary ---
Author Organization [facility] Address [place] [id number] Care Team Providers Care Flea Market Seller Name Role Phone Weston Tobias Primary Care Provider [phone]- [phone] Reason for Visit * Speech Therapy (Routine) - Closed Specialty Diagnoses / Procedures Referred By Contdavid t Referred To Contact Speech Therapy Diagnoses Laryngeal cancer Dysphagia, unspecified type Mat Casper MD [facility] [place] [address] Mat Ball, CHERISE [facility] [place] [address] Referral ID Status Reason Start Date Expiration Date V isits Requested Visits Authorized [id number] Closed Evaluate and Treat 04/14/2021 04/14/2022 30 30 Encounter Details Date Type Department Care Team (Late st Contact Info) Description 04/24/2021 1:00 PM EST Office [place] [address] Roxane Nicholson, CHERISE [facility] [place] [address] Laryngeal cancer Social History Tobacco Use Types [...] encounter Miscellaneous Notes * Initial Evaluation - Roxane Nicholson, OUTSOLE FLEXER - 04/24/2021 1:00 PM EST Speech-Language Pathology Laryngectomy Pre-Op Evaluation Patient Name: Reggie Roland Jean Ramirez. Date of : 1970 Referring MD: Mat Casper Date Seen by MD: 04/14/2021 Diagnosis: Laryngeal CA, dysphonia, dysphagia Date of Onset: 2020 Date of Evaluation: 04/24/2021 Total Treatment Time: 55 min Certification Per. 04/24/2021 - 07/23/2021 Total Timed Code Treatment: 0 KX Modifier used beginning on date: n/a Presenting Problem: Patient is a 50 y.o. male seen today for consultation regarding speech and swallowing changes post laryngectomy. This patient was seen today with his daughter, Shena. He his opting for a total laryngectomy stating I don't want it to be able to come back (re: his cancer). He denied breathing difficulty but reported dysphagia and odynophagia and has only intermittent voicing at this time. He has lost 100 lbs since the onset of cancer symptoms. He is diabetic and is concerned about moving up the timing of the surgery given concerns about his dysphagia more than anything. He was seen for a modified barium swallow just prior to my visit with Mila Trotter, CHERISE. 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 He has support from his daughters. The patient smelled of cigarettes, but was otherwise well appearing. He reported smoking a few cigarettes pre day. He has a heavy smith. Functional Limitations: ?? Dysphagia ?? Dysphonia Past Medical History: Past Medical History: Diagnosis Date ??? Diabetes mellitus ??? Obesity ??? Panniculitis [id number] SCCa of the supraglottic larynx Medications: Current Outpatient Medications Medication Sig Dispense [...] No current facility-administered medications for this visit. S: Pt seen with daughter Shena. Pt reported soreness in his throat with eating. He denied labored breathing. His voice was very hoarse with only intermittent voicing notes. O: ?? Current diet: Pt is trying to eat by mouth but is having significant reports of coughing/ choking. He gets it down but has lost lots of weight and is most worried about his swallowing. ?? Pt indicated understanding that he would have his larynx removed. ?? Current Communication: Verbal though dysphonic, Pt does text. Oral Mechanism and Stoma Clinical Assessment: Deferred See Swallow assessment dated today. Articulation was functional for our conversation in the context of this meeting. Resonance was alsonormal. Education Provided: ??? Reviewed anatomic changes associated with laryngectomy and how this impacts respiration, coughing, sneezing, scent, communication, feeding and swimming. ??? Reviewed purpose for and how to use shower guard. ??? Reviewed communication following laryngectomy (non verbal - barrier is that patient does not write or read and uses spell check to help him text), electrolarynx, esophageal speech and TEP. ??? Discussed but did not demonstrate parts of the electrolarynx and how to use with patient. Communication trials with electrolarynx: ??? Not performed, however we did discuss that his smith would likely impact face and neck placement. A: Summary: Pt is opting for laryngectomy. Pt understands concepts of post-laryngectomy communication, changes in anatomy, olfaction, swallowing and breathing/ coughing/ sneezing. Patient does not read or write and uses spell check on his phone when sending messages via text. Pt will need demonstration of electrolarynx use and training when he is inpatient. Daughter understands communication concerns and is willing to support with a tablet with work prediction while he is in the hospital. Pt will need education in HME use (not performed today). Dx: Laryngeal cancer, here for pre-operative discussion regarding communication. P: RECOMMENDATIONS: ??? OUTSOLE FLEXER to see patient in the post op period when able to train electrolarynx use, shower guard useand discuss HME. ??? Encourage to utilize electro-larynx as first attempt at communication. If this is unsuccessful,then ask pt to write. Frequency of care: ??? Pt is in agreement with treatment plan. Goals: ??? Pt will demonstrate understanding of post laryngectomy swallowing, breathing and communication.- completed. Thank you for this consult with this patient. Please feel free to page me with any questions or concerns. Roxane Nicholson MS [facility] Inpatient / Outpatient Rehabilitation Medicine Pager [phone] documented in this encounter Plan of Treatment Upcoming Encounters Date Type Department Care Team (Late st Contact Info) Description 02/02/2024 3:00 PM EST Office Visit Radiation Oncology at [address] [address] Ag Cruz MD [facility] [place] [address] Scheduled Referrals Name Type Priority Associated Diagnoses Orde r Schedule Referral to Speech Therapy Outpatient Referral Routine Laryngeal cancer Dysphagia, unspecified type Ordered: 04/14/2021 documented as of this encounter Visit Diagnoses Diagnosis Laryngeal cancer Malignant neoplasm of larynx, unspecified site documented in this encounter Care Teams Flea Market Seller Relationship Specialty Start Date End Date Weston Tobias PA [address] [place] [address] PCP - General Family Medicine 02/25/21 documented as of this encounter
--- OUTSIDE RECORDS SUMMARY | 2023-12-01 16:02 | XMS_ITS | Encounter Summary ---
[place] [address] Care Team Providers Care Cattle Sorter Name Role Phone Weston Tobias Primary Care Provider [phone]- [phone] Encounter Details Date Type Department Care Team (Late st Contact Info) Description 04/24/2021 Patient Outreach [place] [address] Grace Chan RN Social History Tobacco Use Types Packs/Day [...] as of this encounter Progress Notes * Grace Chan RN - 05/14/2021 6:15 PM EDT [facility] Nurse Navigation Patient Intake & Care Plan Met with Reggie Pena, who has a diagnosis of supraglottic/epiglottic SCCa, to assess for nurse navigation services. Present during this interview is daughter, Lori. Reviewed Head & Neck symptoms, PMH, lifestyle choices, and dental care. Assessed for transportation, financial, social, and practical barriers to care. Concerns noted in Barriers/Interventions below. Reggie's case was reviewed at Head & Neck Tumor Board on 04/10/21 and, while definitive chemoradiation was an option, surgery with adjuvant treatment was preferred if Reggie wanted to preserve swallowing. Reggie agrees that preserving swallowing and eating function is important to him, so plan is to proceed with total laryngectomy. Currently, experience pain of left side of face and ear ; dry mouth; significant phlegm; hoarseness; and depression/isolation. He has not been taking medications forpain due to the fact that he chokes on them. He states that, if you do not perform the surgery quickly, I am likely to back down and not do anything at all. Reggie declines any assistance with smoking cessation; still smoking 1-1.5 ppd. Edentulous; has dentures, but does not use them regularly. Nosignificant history of alcohol use or illicit/prescription drug misuse. PMH positive for DM II, HTN, and obesity. 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 Began temporary disability already. Does not have a mortgage--owns his house outright. Has ample support from his parents, his brothers, his friend Brenda, his son Reggie, and other family/friends. Denies concerns regarding transportation, finances, health insurance, or support. Outlined main ancillary services available to help support patient, including Social Work, Psycho Onc, Nutrition, INSPECTOR DIALS, and PT. Reviewed general timeline of surgery with adjuvant treatment. Also discussed long-term follow-up schedule. If adjuvant treatment is needed, patient would prefer [facility]. PLAN: ??? DOPR forms completed for Sherri Sandoval, Jes Pena, Kimberli Pena, and Brenda Segovia. Emailed forms to ENT Gear Shaper Set Up Operator to place in chart. ??? Reggie prefers feeding tube be placed with surgery if it is going to be placed at all. ??? Proceed with surgery JAKY Nurse Navigator Barriers and Interventions Assessment Barriers Barriers 05/14/2021 Physical Pain;Difficulties with diet/food intake Informational Educational/informational resources Emotional/Psychological/Spiritual Depression/anxiety Interventions Interventions 05/14/2021 Informational Supportive service referral/education;Literature/online resources Emotional/Psychological/Spiritual Social work Head and Neck Oncology Nurse Navigator is RICARDO Hoover, RN. ' documented in this encounter Plan of Treatment Upcoming Encounters Date Type Department Care Team (Late st Contact Info) Description 02/02/2024 3:00 PM EST Office Visit Radiation Oncology at [address] [phone] Ag Cruz MD [facility] [place] [address] documented as of this encounter Visit Diagnoses Not on filedocumented in this encounter Care Teams Cattle Sorter Relationship Specialty Start Date End Date Weston Tobias PA [address] [place], [place] [address] PCP - General Family Medicine 02/25/21 documented as of this encounter
--- OUTSIDE RECORDS SUMMARY | 2023-12-01 16:02 | XMS_ITS | Encounter Summary ---
Author Organization [place] [address] Care Team Providers Care Insurance Associate Name Role Phone Weston Tobias Primary Care Provider [phone]- [phone] Reason for Visit * Consultation (Routine) - Closed Specialty Diagnoses / Procedures Referred By Contdavid paz Referred To Contact Radiation Oncology Diagnoses Lesion of throat Vasquez Mckinney PA [facility] [place] [address] [facility] [place] [address] Referral ID Status Reason Start Date Expiration Date V isits Requested Visits Authorized [id number] Closed Consult, Test & Treat 03/28/2021 03/28/2022 1 1 Encounter Details Date Type Department Care Team (Late st Contact Info) Description 04/07/2021 10:00 AM EST Office [place] [address] Ag Cruz MD [facility] [place] [address] Squamous cell carcinoma of supraglottis Social History Tobacco Use Types Packs/Day Years Used Date Smoking Tobacco: Every Day Cigarettes 1.5 24 Smokeless Tobacco: Never Tobacco Cessation:Ready to Q [...] Sign Reading Time Taken Comments Blood Pressure 151/90 04/07/2021 9:21 AM EST Pulse 81 04/07/2021 9:21 AM EST Temperature 36.3 ??C (97.3 ??F) 04/07/2021 9:21 AM ES T Respiratory Rate 19 04/07/2021 9:21 AM EST Oxygen Saturation 100% 04/07/2021 9:21 AM EST Inhaled Oxygen Concentration - - Weight 160.6 kg (354 lb) 04/07/2021 9:21 AM EST Height - - Body Mass Index 48.01 03/28/2021 7:12 AM EST documented in this encounter Progress Notes * Ag Cruz MD - 04/07/2021 10:00 AM EST Images from the original note were not included. Radiation Oncology New Patient Visit PATIENT NAME: Reggie Pena Sr. DATE OF : 1970 HISTORY OF PRESENT ILLNESS Reggie Pena Sr. is a 50 y.o. 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 3. No distant sites of metastasis. Other Pertinent Issues: None Currently, he has the following symptoms: Symptom Description Ongoing Intervention Oropharyngeal Pain Pain associated with throat, ranges 2-8/10 No medications Dysphagia Difficulty with swallowing, limited to soft solids Xerostomia / Dysgeusia Chronic mild xerostomia, no dysgeusia Otalgia Denies Dental Issues / Trismus Edentulous Nutritional Intake Eating softer foods PEG Not present Neck Pain Denies Neck Fibrosis / Lymphedema Denies HN sensory Changes Denies HN strength Changes Denies Voice Changes Voice is hoarser, waxes/ wanes Social Issues Travels 15 minutes to [place] Tobacco / EtOH Started smoking at age 22. Prior smoking 4 ppd, now to 1.5 ppd. Total Pack Years Other No Issues ECOG PS: 0 Grade [...] induration along the posterior tongue. Moisture good. Pt edentulous. Eyes: Pupils: Pupils are equal, round, and reactive to light. Neck: Comments: Palpation reveals no adenopathy in cervical, SCLV, ICLV laurita basins. Cardiovascular: Rate and Rhythm: Normal rate. Pulmonary: Effort: Pulmonary effort is normal. Breath sounds: Normal breath sounds. Skin: Findings: No erythema. Neurological: Mental Status: He is alert and oriented to person, place, and time. Cranial Nerves: No cranial nerve deficit. Psychiatric: Behavior: Behavior normal. PROCEDURE SC reviewed HISTORY Allergies as of 04/07/2021 ??? (No Known Allergies) Past Medical History: Diagnosis Date ??? Diabetes mellitus ??? Obesity ??? Panniculitis Past Surgical History: Procedure Laterality Date ??? PRO ESOPHAGOSCOPY, DIAGNOSTIC N/A 03/28/2021 ESOPHAGOSCOPY, RIGID OR FLEXIBLE, DIAGNOSTIC W/WO SPECIMEN COLLECTION (WRVU 1.52) performed by Mat Casper MD at [facility] MAIN OR ??? PRO LARYNGOSCOPY, DIRCT, OP SCOPE, BIOPSY N/A 03/28/2021 LARYNGOSCOPY, MICROSCOPE, WITH BIOPSY (WRVU 3.55) performed by Mat Casper MD at [facility] Social History Socioeconomic History ??? Marital status: Spouse name: Not on file ??? Number of children: Not on file ??? Years of education: Not on file ??? Highest education level: Not on file Occupational History ??? Not on file Tobacco Use ??? Smoking status: Current Every Day Smoker Packs/day: 4.00 Years: 24.00 Pack years: 96.00 Types: Cigarettes ??? Smokeless tobacco: Never Used Vaping Use ??? Vaping Use: Never used [...] on file Housing Stability: Not on file Family History Problem Relation Age of Onset ??? Coronary Artery Disease Other ??? Diabetes Other ROS: I reviewed and agree with the nursing review of systems accompanying this encounter. The remainder of the comprehensive review of systems was negative with the exception of the pertinent positives and negatives noted above. MEDICATIONS Current Outpatient Medications on File Prior to Visit Medication Sig Dispense Refill ??? enoxaparin (LOVENOX) 40 mg/0.4 mL Syringe Inject 0.4 mLs subcutaneously daily. ??? piperacillin-tazobactam (ZOSYN) 3.375 gram/50 mL Piggyback Inject 50 mLs into the vein every 8 hours. (Patient not taking: Reported on 03/20/2021) 50 mL ??? acetaminophen (TYLENOL) 325 mg Tablet Take 2 tablets by mouth every 6 hours as needed for Pain or Fever. (Patient not taking: No sig reported) 30 tablet 1 ??? insulin aspart (NOVOLOG) Solution Inject 5 Units subcutaneously 3 times daily (before meals). (Patient not taking: Reported on 03/20/2021) 10 mL 12 ??? insulin glargine (LANTUS) Solution Inject 28 Units subcutaneously nightly. (Patient not taking:Reported on 03/20/2021) 10 mL 12 ??? lisinopril (PRINIVIL;ZESTRIL) 10 mg Tablet Take 1 tablet by mouth daily. (Patient not taking: Reported on 03/20/2021) 30 tablet 12 ??? morphine 2 mg/mL Cartridge Inject 1 mL into the vein every 3 hours as needed (mild pain (1-3)).(Patient not taking: Reported on 03/20/2021) ??? nystatin (MYCOSTATIN) Cream Apply topically 2 times daily. (Patient not taking: Reported on 03/20/2021) 30 g 0 ??? ondansetron (ZOFRAN) 4 mg Tablet Take 1 tablet by mouth every 8 hours as needed. (Patient not taking: Reported on 03/20/2021) 20 tablet 0 ??? polyethylene glycol (MIRALAX) 17 gram Powder in Packet Take 17 g by mouth daily as needed. (Patient not taking: Reported on 03/20/2021) 14 each 0 ??? senna (SENOKOT) 8.6 mg Tablet Take 1 tablet by mouth 2 times daily. (Patient not taking: Reported on 03/20/2021) 60 tablet 11 ??? vancomycin (VANCOCIN) 2 gram/500 mL Solution Inject 500 mLs into the vein every 8 hours. (Patient not taking: Reported on 03/20/2021) No current facility-administered medications on file prior [...] DL ; Pathologic evaluation of the primary Further Staging None Required Therapy Discussion Reggie Luan Pena Sr. has been referred to discuss radiotherapy in his care. He has a locally advanced T3 squamous cell carcinoma with baseline dysphagia and significant weight loss. He may be a candidate for organ preservation therapy, but his baseline dysphagia and active smoking may increase the risk of a poorer retirement swallowing outcomes. We discussed the relative risks and benefits of radiotherapy and surgical therapy with respect to cure and retirement toxicity. [facility] and we will do so this , and relay consensus recommendations. We discussed the rationale and logistics (including simulation, planning, and treatment) of definitive and adjuvant radiotherapy. We discussed the risks of therapy, including but not limited to shortterm sequelae (fatigue, skin erythema, mucositis, dysphagia, ageusia, xerostomia, weight loss) and retirement sequelae (tissue fibrosis, lymphedema, retirement dysphagia potentially requiring a permanent feeding tube, [...] answered to his satisfaction Concurrent chemotherapy recommendations: to discuss with medical oncology Therapy Decision Await TB recommendations Supportive Care Prophylactic feeding tube: recommended Referral to Hydro Station Supervisor / TRUCKER HAND Dental Issues: edentulous OTHER ISSUES None * Leidy Varner RN - 04/07/2021 10:00 AM EST RADIATION ONCOLOGY NURSING INITIAL NURSING ASSESSMENT IDENTIFICATION: Reggie Pena Sr. is a 50 y.o. year-old male with Throat Lesion PRESENTING SYMPTOMS/CHIEF COMPLAINT: Sore Throat REVIEW OF SYSTEMS: Review of Systems Constitutional: Positive for appetite change, fatigue and unexpected weight change. HENT: Positive for lump/mass, sore throat, trouble swallowing and voice change. Eyes: Negative. Respiratory: Positive for cough, shortness of breath and wheezing. Cardiovascular: Negative. Gastrointestinal: Negative. Endocrine: Negative. Genitourinary: Negative. Musculoskeletal: Negative. Skin: Negative. Neurological: Negative. Hematological: Bruises/bleeds easily. Psychiatric/Behavioral: Positive for depression and sleep disturbance. IN THE PAST 12 MONTHS HAVE YOU: Fallen more than one time? No Injured yourself as result of the fall? No Experienced difficulty with walking/problems with balance? No Do you use any assistive devices? No Any history of collagen vascular diseases:No Any Implanted Devices/Hardware: No If yes please put alert in ARIA patient summary Prior Radiotherapy: No Prior Chemotherapy: No Prior Hormone Therapy: No LEARNING ASSESSMENT REVIEWED: Yes ADVANCED DIRECTIVE: No, paperwork given PAIN ASSESSMENT: [4] out of 10 *eD-H Adult PCS Flow Sheet if 4 or above SOCIAL ASSESSMENT: See ED social assessment information entered. Support Systems: Iesha- Daughter In Law, Daughter Milagros, Daughter Lori, Son Reggie, Mother Jes, Friend- Brenda Barriers to treatment: None Referrals/Interventions: Per Dr. Cruz RADIATION SPECIFIC TEACHING: PLAN: Per Dr. Cruz Answers for HPI/ROS submitted by the patient on 04/07/2021 Distress: 0 documented in this encounter Plan of Treatment Upcoming Encounters Date Type Department Care Team (Late st Contact Info) Description 02/02/2024 3:00 PM EST Office Visit Radiation Oncology at [address] [phone] Ag Cruz MD [facility] [place] [address] documented as of this encounter Visit Diagnoses Diagnosis Squamous cell carcinoma of supraglottis Malignant neoplasm of supraglottis documented in this encounter Care Teams Insurance Associate Relationship Specialty Start Date End Date Weston Tobias PA [address] [place] [address] PCP - General Family Medicine 02/25/21 documented as of this encounter
--- OUTSIDE RECORDS SUMMARY | 2023-12-01 16:03 | XMS_ITS | Encounter Summary ---
[place] [address] Care Team Providers Care Grey Stock Recorder Name Role Phone Weston Tobias Primary Care Provider [phone]- [phone] Encounter Details Date Type Department Care Team (Late st Contact Info) Description 02/27/2021 Telephone [place] [phone] Alysha Pinto Social History Tobacco Use Types Packs/Day Years Used Date Smoking Tobacco: Every Day Cigarettes 4 24 Smokeless Tobacco: Never Alcohol Use Standard Drinks/Week Comments No 0 (1 standard drink = 0.6 oz pur e alcohol) rare alcohol Sex and Gender Information Value Date Recorded Sex Assigned at Not on file Gender Identity Not on file Sexual Orientation Not on file documented as of this encounter Miscellaneous Notes * Telephone Encounter - Alysha Pinto - 02/27/2021 8:54 AM EST I attempted to reach patient to go over CT safety questions. We need to arrange a CT scan and ENT consult (see ENT referral # [id number]). Left a msg for call back to go over these safety questions documented in this encounter Plan of Treatment Upcoming Encounters Date Type Department Care Team (Late st Contact Info) Description 02/02/2024 3:00 PM EST Office Visit Radiation Oncology at [address] [phone] Ag Cruz MD [facility] [place] [address] documented as of this encounter Visit Diagnoses Not on filedocumented in this encounter Care Teams Grey Stock Recorder Relationship Specialty Start Date End Date Weston Tobias PA [address] [place] [address] PCP - General Family Medicine 02/25/21 documented as of this encounter
--- OUTSIDE RECORDS SUMMARY | 2023-12-01 16:03 | XMS_ITS | Encounter Summary ---
Author Organization [facility] [place] [address] Care Team Providers Care Sheet Rock Layer Name Role Phone Valerie Darling MD Primary Care Provider [phone] Encounter Details Date Type Department Care Team (Late Contact Info) Description 02/17/2021 Ancillary Procedure Radiology Library at [facility] [place] [address] Weston Tobias PA [address] [place] [address] Social History Tobacco Use Types Packs/Day Years [...] EST Office Visit Radiation Oncology at [address] [phone] Ag Cruz MD [facility] [place] [address] documented as of this encounter Procedures Procedure Name Priority Date/Time Associated Diagnosis Comments FILM LIBRARY STORAGE ONLY DX STUDY Routine 02/17/2021 12:00 AM EST documented in this encounter Results * Film Library- Storage Only DX Study (02/17/2021 12:00 AM EST) Narrative RAD - 02/25/2021 5:00 PM EST This exam is auto-finalizing. It's purpose is for storage only. Weston MARRERO IMJack FILM LIBRARY O RDERABLES [place], [place] documented in this encounter Visit Diagnoses Not on filedocumented in this encounter Care Teams Sheet Rock Layer Relationship Specialty Start Date End Date Valerie Darling MD [facility] [address] [place] [address] [place] [address] PCP - General 01/07/10 02/24/21 documented as of this encounter
--- OUTSIDE RECORDS SUMMARY | 2023-12-01 16:03 | XMS_ITS | Encounter Summary ---
Author Organization Formerly [facility] [place] [address] Care Team Providers Care Forestry Support Specialist Name Role Phone Weston Tobias Primary Care Provider [phone] Reason for Visit * Auth/Cert Specialty Diagnoses / Procedures Referred By Jose A paz Referred To Contact Diagnoses Dysphonia Other diseases of pharynx supraglottic cancer Procedures PRO LARYNGOSCOPY, DIRCT, OP SCOPE, BIOPSY LARYNGOSCOPY, MICROSCOPE, WITH BIOPSY (WRVU 3.55) Referral ID Status Reason Start Date Expiration Date Visits Re quested Visits Authorized [id number] 1 1 Encounter Details Date Type Department Care Team (Late st Contact Info) Description 03/28/2021 8:30 AM EST - 03/28/2021 10:15 AM EST Surgery [place] [address] Mat Casper MD [facility] [place] [address] LARYNGOSCOPY, MICROSCOPE, WITH BIOPSY (WRVU 3.55) Social History Tobacco Use Types Packs/Day Years [...] Sign Reading Time Taken Comments Blood Pressure 149/104 03/28/2021 7:12 AM EST Pulse 74 03/28/2021 7:12 AM EST Temperature 36.8 ??C (98.2 ??F) 03/28/2021 7:12 AM ES T Respiratory Rate 20 03/28/2021 7:12 AM EST Oxygen Saturation 100% 03/28/2021 7:12 AM EST Inhaled Oxygen Concentration - - Weight 145.2 kg (320 lb) 03/28/2021 7:12 AM EST Height 182.9 cm (6') 03/28/2021 7:12 AM EST Body Mass Index 43.4 03/28/2021 7:12 AM EST documented in this encounter Discharge Instructions * Patient Instructions* Tomy Tipton MD - 03/28/2021 9:46 AM EST Instructions for Patient at Discharge: What to expect: You will have soreness which will improve over the next several days. Medications: Pain Control - use acetaminophen (Tylenol) and/or ibuprofen (Motrin, Advil) as needed. Activity: A good rule of thumb is if it hurts don't do it. Keep your head elevated when lying flat. No heavy lifting or strenuous activity for one to two weeks. No smoking, this is important for wound healing. Don't take aspirin or blood thinner until OK'd by your physician. You should not drive a car while taking prescription pain medications or while you are too sore to react quickly. Diet: Resume baseline diet. You should call your doctor if you develop: -Increasing pain and redness -Fever > 38.5Celsius or 101 Fahrenheit -Bleeding -Breathing problems Contact: -You can reach the ENT clinic at [phone] for appointment questions. -The ENT triage nurse is available at [phone] -For urgent issues during evenings and weekends the ENT resident dehydrogenation operator can be reached through [facility] shellfish dredge operator at [phone] Follow Up: You will need to follow up with ENT in about 10-14 days. This appointment has been requested. You will be notified once it is scheduled, if you do not already see it below. If you do not hear from usin a timely manner, please call to receive your date and time. We will also place referrals for you to see Radiation Oncology and Medical Oncology. We will try help arrange for those upcoming visits on the same day, if possible. Currently Scheduled Appointments and VNA instructions: Future Appointments and Orders Future Appointments and Orders Future Appointments Provider Department Dept Phone 03/31/2021 9:30 AM [facility] PET 1 Nuclear Medicine at [facility] Arrive at: 3Z INTERVENTIONAL RADIOLOGY [phone] documented in this encounter Medications at Time of Discharge Medication Sig Dispensed Refills Start Date End Date enoxaparin (LOVENOX) 40 mg/0.4 mL Syringe Inject 0.4 mLs subcutaneously daily. 02/26/2014 04/29/2021 piperacillin-tazobac peguero (ZOSYN) 3.375 gram/50 mL Piggyback Inject 50 mLs into the vein every 8 hours. 50 mL 02/26/2014 04/07/2021 acetaminophen (TYLENOL) 325 mg Tablet Take 2 [...] mouth daily. 30 tablet 12 02/26/2014 04/29/2021 morphine 2 mg/mL Cartridge Inject 1 mL into the vein every 3 hours as needed (mild pain (1-3)). 02/26/2014 04/07/2021 nystatin (MYCOSTATIN) Cream Apply topically 2 times daily. 30 g 0 02/26/2014 04/29/2021 ondansetron (ZOFRAN) 4 mg Tablet Take 1 tablet by mouth every 8 hours as needed. 20 tablet 0 02/26/2014 04/07/2021 polyethylene glycol (MIRALAX) 17 gram Powder in Packet Take 17 g by mouth daily as needed. 14 each 0 02/26/2014 04/07/2021 senna (SENOKOT) 8.6 mg Tablet Take 1 tablet by mouth 2 times daily. 60 tablet 11 02/26/2014 04/07/2021 vancomycin (VANCOCIN) 2 gram/500 mL Solution Inject 500 mLs into the vein every 8 hours. 02/26/2014 04/07/2021 documented as of this encounter H&P Notes * Vasquez Mckinney PA - 03/28/2021 7:45 AM EST 24-Hour Pre-Operative H&P Update Patient was seen in the Pre-Operative Area today. I have reviewed, and agree with, the clinical history, physical examination findings, impression, and plan, as detailed in the original H&P Note. No new clinically-significant changes to the patient's health. Patient is ready to proceed with theplanned surgical procedure. ELIDA Leonard 03/28/21 7:45 AM Pager: [phone] documented in this encounter Miscellaneous Notes * Op Note - Mat Casper MD - 03/28/2021 10:02 AM EST Preop diagnosis: Supraglottic tumor Postoperative diagnosis: Same Procedure: 1. Microlaryngoscopy with biopsy 2. Cervical esophagoscopy Surgeons: MD Vasquez Hickman MD, PA-C Anesthesia: General EBL: Minimal Indications: This patient presented with sore throat voice change and dysphagia was noted on the office laryngoscopy to have a large supraglottic tumor he is brought to the operating room for stagingand biopsy. Findings: Grade 1 view with a Dedo [...] arytenoid or right area epiglottic fold. The leftfalse fold appears to be uninvolved as does the true cord on the left. The right true cord and false fold did not appear to be involved. Cervical esophagoscopy down to 25 cm from the upper lip demonst rated normal esophageal lumen. Tumor does not appear to involve the base of tongue and the base of tongue is soft on palpation. Description: After informed consent was obtained the patient was placed under general anesthesia without difficulty and the table was turned 180 degrees. The patient was enrolled in the laryngeal pressure study. A timeout was called. We started first with the Dedo laryngoscope. Careful examination of the glottic larynx and subglottis was carried out with the Dedo and biopsies were taken of the true vocal cord on the left as well as the false fold. it should be noted that further visualization and illumination was carried out using a laryngeal telescope. Next we then used the Jennifer laryngoscope with a laryngeal telescope to further evaluate the baseof tongue, vallecula, and supraglottic larynx. The scope was placed in suspension and biopsies weretaken of the tumor itself, the vallecula in the midline, and the left base of tongue. Additional biopsies were taken of the interarytenoid space. To further map out the extent of disease we then performed a cervical esophagoscopy. The Jennifer was removed and a cervical esophagoscope was then carefully placed and passed down to 25 cm from the upper lip further visualization being achieved with a telescope. Upon evaluation and withdrawal of the cervical esophagoscope we were able to determined that there was no involvement ofthe upper esophagus and the piriform apex. We were able to visualize the piriform sinus a bit more c learly and noted tumor along the medial aspect of the piriform sinus on the left-hand side with extension towards the left side but not involving the posterior lateral piriform sinus. Hemostasis was maintained with pledgets soaked in adrenaline and once we are satisfied there is no further bleeding the patient was then turned back to anesthesia for extubation with no complications. Attestation: Case Date: 03/28/2021 I was present and I participated during the entire procedure (does not need to include opening and closing). MAT CASPER MD 04/02/2021 * Op Note - Mat Casper MD - 03/28/2021 8:58 AM EST error documented in this encounter Plan of Treatment Upcoming Encounters Date Type Department Care Team (Late st Contact Info) Description 02/02/2024 3:00 PM EST Office Visit Radiation Oncology at [address] [phone] Ag Cruz MD [facility] [place] [address] documented as of this encounter Procedures Procedure Name Priority Date/Time Associated Diagnosis Comments POCT GLUCOSE Routine 03/28/2021 10:22 AM EST ESOPHAGOSCOPY,RIGID OR FLEXIBLE,DIAGNOSTIC W/WO SPECIMEN COLLECTION Routine 03/28/2021 10:02 AM EST Lesion of throat Hoarseness SPECIMEN TO PATHOLOGY Routine 03/28/2021 9:31 AM EST SPECIMEN TO PATHOLOGY Routine 03/28/2021 9:23 AM EST SPECIMEN TO PATHOLOGY Routine 03/28/2021 9:19 AM EST SPECIMEN TO PATHOLOGY Routine 03/28/2021 9:18 AM EST SURGICAL PATHOLOGY REPORT Routine 03/28/2021 9:06 AM EST SPECIMEN TO PATHOLOGY Routine 03/28/2021 9:06 AM EST SPECIMEN TO PATHOLOGY Routine 03/28/2021 9:06 AM EST Esophagoscopy, Diagnostic ([id number]) Yes 03/28/2021 8:35 AM EST Lesion of throat Hoarseness Laryngoscopy, Dirct, Op Scope, Biopsy ([id number]) Yes 03/28/2021 8:35 AM EST Lesion of throat Hoarseness POCT GLUCOSE Routine 03/28/2021 7:21 AM EST LARYNGOSCOPY, MICROSCOPE, WITH BIOPSY Routine 03/28/2021 7:11 AM EST Lesion of throat Hoarseness documented in this encounter Results * POCT Glucose (03/28/2021 10:22 AM EST) Glucose, POC 108 65 - 199 mg/dL [facility] Comment: Supplemental ranges: <140 mg/dL before meals <180 mg/dL all other times of the day Blood 03/28/2021 10:2 2 AM EST 03/28/2021 10:22 AM EST Mat Casper MD POINT OF CARE TEST ORDERABLES Performing Organization Address City/[facility]/ZIP Co de Phone Number [facility] [place] [address] * Specimen to Pathology (03/28/2021 9:31 AM EST) AP Specimen 03/28/2021 9:31 AM EST 03/28/2021 9:31 AM EST Narrative [facility] - 03/28/2021 9:31 AM EST Specimen requisition ordered. ??Separate Pathology report to follow Mat Casper MD PATHOLOGY/CYTOLOGY ORDERABLES [facility] [place] [address] * Specimen to Pathology (03/28/2021 9:23 AM EST) AP Specimen 03/28/2021 9:23 AM EST 03/28/2021 9:23 AM EST Narrative [facility] - 03/28/2021 9:23 AM EST Specimen requisition ordered. ??Separate Pathology report to follow Mat Casper MD PATHOLOGY/CYTOLOGY ORDERABLES [facility] [place] [address] * Specimen to Pathology (03/28/2021 9:19 AM EST) AP Specimen 03/28/2021 9:19 AM EST 03/28/2021 9:19 AM EST Narrative [facility] - 03/28/2021 9:19 AM EST Specimen requisition ordered. ??Separate Pathology report to follow Mat Casper MD PATHOLOGY/CYTOLOGY ORDERABLES Performing Organization Address [facility] Co de Phone Number [facility] [place] [address] * Specimen to Pathology (03/28/2021 9:18 AM EST) AP Specimen 03/28/2021 9:18 AM EST 03/28/2021 9:18 AM EST Narrative [facility] - 03/28/2021 9:18 AM EST Specimen requisition ordered. ??Separate Pathology report to follow Mat Casper MD PATHOLOGY/CYTOLOGY ORDERABLES Performing Organization Address [facility] de Phone Number [facility] [place] [address] * Surgical Pathology Report (03/28/2021 9:06 AM EST) Pathologist [facility] Final Diagnosis [id number] ? Location: [facility]; [facility]; The signing pathologist has (i) examined the relevant preparation(s) for the specimen(s) and (ii) rendered or confirmed the diagnosis(es). . ?Surgical Pathology DIAGNOSIS A - Left false fold, biopsy: ??- Low to intermediate-grad e squamous dysplasia. B - Left true cord, biopsy: ??- Intermediate-grad e squamous dysplasia. C - Vallecula, biopsy: ??- Focal low-grade squamous dysplasia. ??- Minor salivary gland tissue ?? within normal limits. D - Left base of tongue, biopsy: ??- Focal low-grade squamous dysplasia. ??- Minor salivary gland tissue ?? within normal limits. E - Supraglottic tumor, biopsy: ??- Invasive squamous cell carcinoma, moderately differentiated, keratinizing. ??- Background of squamous cell carcinoma in situ. F - Inter arytenoid space, midline, biopsy: ??- Low-grade squamous dysplasia. Electronically signed by: ?Judy Rucker MD Verified: ??04/03/2021 13:25 ??Pathologist Performed at: ??-[facility] Dept. of Pathology, [place], [place] SPECIMEN(S) SUBMITTED A - Left false fold, biopsy B - Left true cord, biopsy C - Vallecula, biopsy D - Left base of tongue, biopsy E - Supraglottic tumor, biopsy F - Inter arytenoid space, midline, biopsy CLINICAL INFORMATION Supraglottic cancer SPECIMEN PROCESSING A - Labeled/Fixative: Left false fold, fresh. Quantity/Size: Single, 0.3 cm. Tissue Description: Soft, white tissue. Sections/Processi ng: Submitted en toto ??in 1 cassette labeled A1. B - Labeled/Fixative: Left true cord, fresh. Quantity/Size: Single, 0.1 cm. Tissue Description: Soft, pink-white tissue. Sections/Processi ng: . SPECIMEN PROCESSING Submitted en toto ??in 1 cassette labeled B1. C - Labeled/Fixative: Vallecula, saline. Quantity/Size: Multiple, averaging 0.4 cm. Tissue Description: Soft, pink-white tissues. Sections/Processi ng: Submitted en toto ??in 2 cassettes labeled C1-C2. D - Labeled/Fixative: Left base of tongue, saline. Quantity/Size: Four, averaging 0.4 cm. Tissue Description: Soft, pink-white tissues. Sections/Processi ng: Submitted en toto ??in 1 cassette labeled D1. E - Labeled/Fixative: Supraglottic tumor, saline. Quantity/Size: Multiple, ranging from 0.2-0.4 cm. Tissue Description: Soft, pink-white tissues. Sections/Processi ng: Submitted en toto ??in 2 cassettes labeled E1-E2. F - Labeled/Fixative: Interarytenoid space midline, fresh. Quantity/Size: Two, 0.2 and 0.5 cm. Tissue Description: Soft, pink-white tissues. Sections/Processi ng: Submitted en toto ??in 1 cassette labeled F1. ??sns 04/03/2021 1:25 PM EST [facility] LARYNGEAL STRUCTURE / Unknown 03/28/2021 9:06 AM EST 03/28/2021 9:06 AM EST LARYNGEAL STRUCTURE / Unknown 03/28/2021 9:06 AM EST 03/28/2021 9:06 AM EST LARYNGEAL STRUCTURE / Unknown 03/28/2021 9:06 AM EST 03/28/2021 9:06 AM EST Margin 03/28/2021 9:06 AM EST 03/28/2021 9:06 AM EST LARYNGEAL STRUCTURE / Unknown 03/28/2021 9:06 AM EST 03/28/2021 9:06 AM EST LARYNGEAL STRUCTURE / Unknown 03/28/2021 9:06 AM EST 03/28/2021 9:06 AM EST Mat Casper MD PATHOLOGY/CYTOLOGY ORDERABLES Performing Organization Address City/[facility]/ZIP Co de Phone Number [facility] [place] [address] * Specimen to Pathology (03/28/2021 9:06 AM EST) AP Specimen 03/28/2021 9:06 AM EST 03/28/2021 9:06 AM EST Narrative [facility] - 03/28/2021 9:06 AM EST Specimen requisition ordered. ??Separate Pathology report to follow Mat Casper MD PATHOLOGY/CYTOLOGY ORDERABLES Performing Organization Address [facility]/ZIP Co de Phone Number [facility] [place] [address] * Specimen to Pathology (03/28/2021 9:06 AM EST) AP Specimen 03/28/2021 9:06 AM EST 03/28/2021 9:06 AM EST Narrative [facility] - 03/28/2021 9:06 AM EST Specimen requisition ordered. ??Separate Pathology report to follow Mat Casper MD PATHOLOGY/CYTOLOGY ORDERABLES [facility] [place] [address] * POCT Glucose (03/28/2021 7:21 AM EST) Glucose, POC 111 65 - 199 mg/dL [facility] Comment: Supplemental ranges: <140 mg/dL before meals <180 mg/dL all other times of the day Blood 03/28/2021 7:21 AM EST 03/28/2021 7:21 AM EST Mat Casper MD POINT OF CARE TEST ORDERABLES Performing Organization Address [facility] Co de Phone Number [facility] [place] [address] documented in this encounter Visit Diagnoses Diagnosis Lesion of throat Unspecified disease of pharynx Hoarseness Dysphonia Lesion of throat Unspecified disease of pharynx Hoarseness Dysphonia documented in this encounter Administered Medications Inactive Administered Medications - up to 3 most recent administrations Medication Order MAR Action Action Date Dose Rate Site acetaminophen (Tylenol) (32 mg/mL) oral liquid 650 mg 650 mg, Oral, EVERY 4 HOURS PRN, Starting on Wed03/28/21 at 0944, Until Wed03/28/21 at 1354, Pain, Maximum dose of acetaminophen is 4000 mg from all sources in 24 hours., Routine acetaminophen (Tylenol) chewable tablet 640 mg 640 mg (rounded from 650 mg), Oral, EVERY 4 HOURS PRN, Starting on Wed03/28/21 at 0944, Until Wed03/28/21 at 1354, Pain, Routine acetaminophen (Tylenol) suppository 650 mg 650 mg, Rectal, EVERY 4 HOURS PRN, Starting on Wed03/28/21 at 0944, Until Wed03/28/21 at 1354, Pain, Routine acetaminophen (Tylenol) tablet 1,000 mg 1,000 mg, Oral, ONCE, 1 dose, On Wed03/28/21 at 0745, Administer with SIP of H2O only., Day of Surgery (Day of Procedure), Routine Given 03/28/2021 7:36 AM EST 1,000 mg acetaminophen (Tylenol) tablet 650 mg 650 mg, Oral, EVERY 4 HOURS PRN, Starting on Wed03/28/21 at 0944, Until Wed03/28/21 at 1354, Pain, Routine EPINEPHrine (Adrenalin) nasal solution ONCE PRN, Starting on Wed03/28/21 at 0902, Until Wed03/28/21 at 1354, Intra-Operative (Intra-Procedure), Routine Given 03/28/2021 9:02 AM EST 1 mL fentaNYL (pf) (50 mcg/mL) multi-dose injection 25 mcg 25 mcg, Intravenous, EVERY 5 MIN PRN, Starting on Wed03/28/21 at 1020, Until Wed03/28/21 at 1109, Pain, Mild to moderate pain (1-5 out of 10), Hold for respiratory rate less than 10 per minute. Maximum dose 200 mcg over one hour, including OR administration. If ordered with HYDROmorphone or morphine, give HYDROmorphone or morphine first and use fentaNYL for breakthrough pain., PACU Recovery, Routine Given 03/28/2021 10:41 AM EST 25 mcg lactated ringers infusion 1,000 mL, at 100 mL/hr, Intravenous, CONTINUOUS, Starting on Wed03/28/21 at 0745, Until Wed03/28/21 at 1109, Day of Surgery (Day of Procedure) Restarted 03/28/2021 8:35 AM EST New Bag 03/28/2021 7:38 AM EST 1,000 mLs 100 mL/hr documented in this encounter Active and Recently Administered Medications Times are shown in EST. Scheduled Medication Order 03/26/2021 03/27/2021 03/28/2021 acetaminophen (Tylenol) tablet 1,000 mg (COMPLETED) 1,000 mg, Oral, ONCE, 1 dose, On Wed03/28/21 at 0745, Administer with SIP of H2O only., Day of Surgery (Day of Procedure), Routine 0736 (Given - Provid er: Lydia Rizzo RN) Continuous Medication Order 03/26/2021 03/27/2021 03/28/2021 lactated ringers infusion (CANCELED) 1,000 mL, at 100 mL/hr, Intravenous, CONTINUOUS, Starting on Wed03/28/21 at 0745, Until Wed03/28/21 at 1109, Day of Surgery (Day of Procedure) 0738 (New Bag - Prov ider: Lydia Rizzo RN)0834 (Paused - Provider: Tabitha Anderson CRNA - Comment: Switch to gravity)0835 (Restarted - Provider: Tabitha Anderson CRNA)0936 (Anesthesia Volume Adjustment - Provider: Tabitha Anderson CRNA) PRN Medication Order 03/26/2021 03/27/2021 03/28/2021 acetaminophen (Tylenol) (32 mg/mL) oral liquid 650 mg(Linked Group 1) 650 mg, Oral, EVERY 4 HOURS PRN, Starting on Wed03/28/21 at 0944, Until Wed03/28/21 at 1354, Pain, Maximum dose of acetaminophen is 4000 mg from all sources in 24 hours., Routine acetaminophen (Tylenol) chewable tablet 640 mg(Linked Group 1) 640 mg (rounded from 650 mg), Oral, EVERY 4 HOURS PRN, Starting on Wed03/28/21 at 0944, Until Wed03/28/21 at 1354, Pain, Routine acetaminophen (Tylenol) suppository 650 mg(Linked Group 1) 650 mg, Rectal, EVERY 4 HOURS PRN, Starting on Wed03/28/21 at 0944, Until Wed03/28/21 at 1354, Pain, Routine acetaminophen (Tylenol) tablet 650 mg(Linked Group 1) 650 mg, Oral, EVERY 4 HOURS PRN, Starting on Wed03/28/21 at 0944, Until Wed03/28/21 at 1354, Pain, Routine EPINEPHrine (Adrenalin) nasal solution (CANCELED) ONCE PRN, Starting on Wed03/28/21 at 0902, Until Wed03/28/21 at 1354, Intra-Operative (Intra-Procedure), Routine 0902 (Given - Provid er: Mat Casper MD - Comment: Patties soaked with epi and applied topically) fentaNYL (pf) (50 mcg/mL) multi-dose injection 25 mcg (CANCELED)(Linked Group 2) 25 mcg, Intravenous, EVERY 5 MIN PRN, Starting on Wed03/28/21 at 1020, Until Wed03/28/21 at 1109, Pain, Mild to moderate pain (1-5 out of 10), Hold for respiratory rate less than 10 per minute. Maximum dose 200 mcg over one hour, including OR administration. If ordered with HYDROmorphone or morphine, give HYDROmorphone or morphine first and use fentaNYL for breakthrough pain., PACU Recovery, Routine 1041 (Given - Provid er: Antonia Underwood RN) Linked Groups Order Group 1: acetaminophen (Tylenol) tablet 650 mgJump to med 650 mg, Oral, EVERY 4 HOURS PRN, Starting on Wed03/28/21 at 0944, Until Wed03/28/21 at 1354, Pain, Routine Or acetaminophen (Tylenol) (32 mg/mL) oral liquid 650 mgJump to med 650 mg, Oral, EVERY 4 HOURS PRN, Starting on Wed03/28/21 at 0944, Until Wed03/28/21 at 1354, Pain, Maximum dose of acetaminophen is 4000 mg from all sources in 24 hours., Routine Or acetaminophen (Tylenol) suppository 650 mgJump to med 650 mg, Rectal, EVERY 4 HOURS PRN, Starting on Wed03/28/21 at 0944, Until Wed03/28/21 at 1354, Pain, Routine Or acetaminophen (Tylenol) chewable tablet 640 mgJump to med 640 mg (rounded from 650 mg), Oral, EVERY 4 HOURS PRN, Starting on Wed03/28/21 at 0944, Until Wed03/28/21 at 1354, Pain, Routine Group 2: fentaNYL (pf) (50 mcg/mL) multi-dose injection 25 mcg (CANCELED)Jump to med 25 mcg, Intravenous, EVERY 5 MIN PRN, Starting on Wed03/28/21 at 1020, Until Wed03/28/21 at 1109, Pain, Mild to moderate pain (1-5 out of 10), Hold for respiratory rate less than 10 per minute. Maximum dose 200 mcg over one hour, including OR administration. If ordered with HYDROmorphone or morphine, give HYDROmorphone or morphine first and use fentaNYL for breakthrough pain., PACU Recovery, Routine Or fentaNYL (pf) (50 mcg/mL) multi-dose injection 50 mcg (CANCELED) 50 mcg, Intravenous, EVERY 5 MIN PRN, Starting on Wed03/28/21 at 1020, Until Wed03/28/21 at 1109, Pain, Moderate to severe pain (6-10 out of 10), Hold for respiratory rate less than 10 per minute. Maximum dose 200 mcg over one hour, including OR administration. If ordered with HYDROmorphone or morphine, give HYDROmorphone or morphine first and use fentaNYL for breakthrough pain., PACU Recovery, Routine documented in this encounter Care Teams Forestry Support Specialist Relationship Specialty Start Date End Date Weston Tobias PA [address] [place] [address] PCP - General Family Medicine 02/25/21 documented as of this encounter
--- OUTSIDE RECORDS SUMMARY | 2023-12-01 16:03 | XMS_ITS | Encounter Summary ---
Author Organization [facility] [place] [address] Care Team Providers Care Fitness And Wellness Instructor Name Role Phone Weston Tobias Primary Care Provider +1- [phone] Reason for Referral * Consultation (Routine) - Closed Specialty Diagnoses / Procedures Referred By Contac t Referred To Contact Hematology and Oncology Diagnoses Lesion of throat Vasquez Mckinney PA [facility] [place] [address] [facility] Hem Onc Office [address] [place] [id number] Referral ID Status Reason Start Date Expiration Date V isits Requested Visits Authorized [id number] Closed Consult, Test & Treat 03/28/2021 03/28/2022 1 1 * Consultation (Routine) - Closed Specialty Diagnoses / Procedures Referred By Contdavid t Referred To Contact Radiation Oncology Diagnoses Lesion of throat Vasquez Mckinney PA [facility] [place] [address] [facility] [place] [address] Referral ID Status Reason Start Date Expiration Date V isits Requested Visits Authorized [id number] Closed Consult, Test & Treat 03/28/2021 03/28/2022 1 1 Encounter Details Date Type Department Care Team (Late st Contact Info) Description 03/28/2021 Orders [place] [address] Vasquez Mckinney PA [facility] [place] [address] Lesion of throat Social History Tobacco Use Types Packs/Day Years [...] EST Office Visit Radiation Oncology at [address] [phone] Ag Cruz MD [facility] [place] [address] Scheduled Referrals Name Type Priority Associated Diagnoses Order Schedule Referral to Radiation Oncology Outpatient Referral Routine Lesion of throat Ordered: 03/28/2021 Referral to Hematology and Oncology Outpatient Referral Routine Lesion of throat Ordered: 03/28/2021 documented as of this encounter Visit Diagnoses Diagnosis Lesion of throat Unspecified disease of pharynx documented in this encounter Care Teams Fitness And Wellness Instructor Relationship Specialty Start Date End Date Weston Tobias PA [address] [place] [address] PCP - General Family Medicine 02/25/21 documented as of this encounter
--- OUTSIDE RECORDS SUMMARY | 2023-12-01 16:03 | XMS_ITS | Encounter Summary ---
Author Organization [facility] [place] [address] Care Team Providers Care Bag Loader Machine Operator Name Role Phone Weston Tobias Primary Care Provider +1- [phone] Reason for Referral * Diagnostic Test (Routine) - Closed Specialty Diagnoses / Procedures Referred By Contac t Referred To Contact Radiology Diagnoses Hoarseness Dysphagia, unspecified type Lesion of throat Procedures CT Neck Soft Tissue w Contrast (Generic) Vasquez Mckinney PA [facility] [place] [address] [place] [address] Referral ID Status Reason Start Date Expiration Date V isits Requested Visits Authorized [id number] Closed Specialty Service Requested 03/12/2021 09/08/2021 1 1 Encounter Details Date Type Department Care Team (Late st Contact Info) Description 02/27/2021 Orders [place] [address] Vasquez Mckinney PA [facility] [place] [address] Hoarseness; Dysphagia, unspecified type; Lesion of throat Social History Tobacco Use [...] EST Office Visit Radiation Oncology at [address] [phone] Ag Cruz MD [facility] [place] [address] documented as of this encounter Results * CT Neck Soft Tissue w Contrast (Generic) (03/20/2021 8:38 AM EST) Anatomical Region Laterality Modality Neck, Head Computed Tomogra phy 03/20/2021 8:53 AM EST Impressions 03/20/2021 10:59 AM EST 1. ??Tongue base mass eroding through the epiglottis and extending into the preepiglottic fat down to the level of the true vocal cord. No definite subglottic extension and no evidence of thyroid cartilage invasion. Sclerosis of the left arytenoid cartilage is nonspecific. 2. ??No cervical lymphadenopathy. 3. ??No evidence of distant regional metastases. Thank you for letting us participate in the care of this patient. ??If you are a health care provider and have any questions regarding this report, please contact the number below. ??For patients who have questions please contact the health care transition coordinator that requested your imaging first. ? Electronically signed by: Jimmy Rowan MD, [facility] ([phone]), at 03/20/2021 10:59 AM Narrative 03/20/2021 10:59 AM EST EXAMINATION: CT NECK SOFT TISSUE W CONTRAST (GENERIC) CLINICAL HISTORY: Chronic laryngitis Pt w history of hoarseness and dysphagia x 1 yr with abnormal barium swallow test very suspicious for mucosal neoplasm. Please assess for tumor of throat, extent of disease. TECHNIQUE: CT neck performed after the intravenous administration of contrast. Administered 110.0 ml of OMNIPAQUE 350.00 mg/ml. COMPARISON: Barium swallow 02/17/2021 FINDINGS: There is a large mass lesion [...] right and is mild to moderately narrowed. No cervical lymphadenopathy bilaterally. No nodules in the visualized portions of the lungs. The visualized portions of the brain are grossly normal. Incidental lipoma in the dorsal left neck that measures up to at least 6.3 cm in the axial plane. Procedure Note Jimmy Rowan MD - 03/20/2021 EXAMINATION: CT NECK SOFT TISSUE W CONTRAST (GENERIC) CLINICAL HISTORY: Chronic laryngitis Pt w history of hoarseness and dysphagia x 1 yr with abnormal bariumswallow test very suspicious for mucosal neoplasm. Please assess for tumor ofthroat, extent of disease. TECHNIQUE: CT neck performed after the intravenous administration of contrast.Administered 110.0 ml of OMNIPAQUE 350.00 mg/ml. COMPARISON: Barium swallow 02/17/2021 FINDINGS: There is a large mass lesion left greater than right at the tongue basewhere it measures up to at least 4.4 cm in transverse diameter. There is mildextension into the posterior aspect of the floor of mouth. The lesion measures up to3.0 cm at the level of the aryepiglottic fold. Craniocaudad length is roughly5.0 cm. The lesion has eroded through the epiglottis and also extends alongthe left side of the oropharynx to include the left preepiglottic fat, the left aryepiglottic fold and left side of the mid to lower epiglottis extendingdown to the region of the left true vocal cord. No definite subglotticextension. No definite involvement of the thyroid cartilage. The left arytenoidcartilage demonstrates asymmetrically show more calcification than the right. Noerosions to suggest cricoid cartilage involvement. The supraglottic airway deviatesto the right and is mild to moderately narrowed. No cervical lymphadenopathy bilaterally. No nodules in the visualized portions of the lungs. The visualizedportions of the brain are grossly normal. Incidental lipoma in the dorsal left neck that measures up to at least 6.3cm in the axial plane. IMPRESSION 1. Tongue base mass eroding through the epiglottis and extending intothe preepiglottic fat down to the level of the true vocal cord. No definite subglottic extension and no evidence of thyroid cartilage invasion.Sclerosis of the left arytenoid cartilage is nonspecific. 2. No cervical lymphadenopathy. 3. No evidence of distant regional metastases. Thank you for letting us participate in the care of this patient. If youare a health care provider and have any questions regarding this report,please contact the number below. For patients who have questions please contactthe health care transition coordinator that requested your imaging first. Electronically signed by: Jimmy Rowan MD, [facility]([phone]), at 03/20/2021 10:59 AM Mat Casper MD IMG CT ORDERABLES documented in this encounter Visit Diagnoses Diagnosis Hoarseness Dysphonia Dysphagia, unspecified type Lesion of throat Unspecified disease of pharynx Hoarseness Dysphonia Dysphagia, unspecified type Lesion of throat Unspecified disease of pharynx documented in this encounter Care Teams Bag Loader Machine Operator Relationship Specialty Start Date End Date Weston Tobias PA [address] [place] [address] PCP - General Family Medicine 02/25/21 documented as of this encounter
--- OUTSIDE RECORDS SUMMARY | 2023-12-01 16:03 | XMS_ITS | Encounter Summary ---
Author Organization [facility] [place] [address] Care Team Providers Care Slot Supervisor Name Role Phone Weston Tobias Primary Care Provider +1- [phone] Encounter Details Date Type Department Care Team (Late Contact Info) Description 03/28/2021 Interpretation Only Radiology [address] [place] [address] [place] [address] Unknown None Social History Tobacco Use Types Packs/Day [...] EST Office Visit Radiation Oncology at [address] [phone] Ag Cruz MD [facility] [place] [address] documented as of this encounter Procedures Procedure Name Priority Date/Time Associated Diagnosis Comments DH OR ENDOSCOPY Routine 03/28/2021 documented in this encounter Results * DH OR Endoscopy (03/28/2021) Anatomical Region Laterality Modality Other 03/28/2021 Narrative 03/28/2021 12:00 AM EST Photographs - Images Procedure Note Unknown - 03/31/2021 Photographs - Images Unknown EA IMAGES documented in this encounter Visit Diagnoses Not on filedocumented in this encounter Care Teams Slot Supervisor Relationship Specialty Start Date End Date Weston Tobias PA [address] [place] [address] PCP - General Family Medicine 02/25/21 documented as of this encounter
--- OUTSIDE RECORDS SUMMARY | 2023-12-01 16:03 | XMS_ITS | Encounter Summary ---
Author Organization [facility] [place] [address] Care Team Providers Care Intermodal Customer Service Name Role Phone Weston Tobias Primary Care Provider +1- [phone] Reason for Visit * Reason Onset Date Comments Other 03/28/2021 NPW-HEM&RAD/ONC 05/01/21 @ 8:30 Encounter Details Date Type Department Care Team (Late st Contact Info) Description 03/28/2021 Telephone [place] [address] Elana Tatum Other (NPW-HEM&RAD/ONC 05/01/21 @ 8:30) Social History Tobacco Use Types Packs/Day Years [...] EST Office Visit Radiation Oncology at [address] [phone] Ag Cruz MD [facility] [place] [address] documented as of this encounter Visit Diagnoses Not on filedocumented in this encounter Care Teams Intermodal Customer Service Relationship Specialty Start Date End Date Weston Tobias PA [address] [place] [address] PCP - General Family Medicine 02/25/21 documented as of this encounter
--- OUTSIDE RECORDS SUMMARY | 2023-12-01 16:03 | XMS_ITS | Encounter Summary ---
[place] [address] Care Team Providers Care Turning Sander Operator Name Role Phone Valerie Darling MD Primary Care Provider [phone] Encounter Details Date Type Department Care Team (Late Contact Info) Description 02/20/2014 Orders [place] [address] [place] [address] Social History Tobacco Use Types Packs/Day Years [...] EST Office Visit Radiation Oncology at [address] [phone] Ag Cruz MD [facility] [place] [address] documented as of this encounter Procedures Procedure Name Priority Date/Time Associated Diagnosis Comments FILM LIBRARY STORAGE ONLY CT ABDOMEN AND PELVIS Routine 02/20/2014 10:45 AM EST documented in this encounter Results * Film Library- Storage only CT abdomen & pelvis (02/20/2014 10:45 AM EST) Anatomical Region Laterality Modality Abdomen, Pelvis Other 02/20/2014 10:4 5 AM EST Narrative 02/23/2014 4:10 PM EST This is a Non-reportable exam Procedure Note MARGARET, UNSIGNED REPORT - 02/23/2014 This is a Non-reportable exam Elder Webb MD [facility] FILM LIBRARY ORD ERABLES documented in this encounter Visit Diagnoses Not on filedocumented in this encounter Care Teams Turning Sander Operator Relationship Specialty Start Date End Date Valerie Darling MD [facility] [address] [place] [address] [place] [address] PCP - General 01/07/10 02/24/21 documented as of this encounter
--- OUTSIDE RECORDS SUMMARY | 2023-12-01 16:03 | XMS_ITS | Encounter Summary ---
[place] [address] Care Team Providers Care Speech Correction Consultant Name Role Phone Weston Tobias Primary Care Provider [phone]- [phone] Reason for Visit * Auth/Cert Specialty Diagnoses / Procedures Referred By Jose A paz Referred To Contact Diagnoses Dysphonia Other diseases of pharynx supraglottic cancer Procedures PRO LARYNGOSCOPY, DIRCT, OP SCOPE, BIOPSY LARYNGOSCOPY, MICROSCOPE, WITH BIOPSY (WRVU 3.55) Referral ID Status Reason Start Date Expiration Date Visits Re quested Visits Authorized [id number] 1 1 Encounter Details Date Type Department Care Team (Late st Contact Info) Description 03/28/2021 8:35 AM EST Anesthesia Event [place] [phone] Ayan Sarah MD [facility] [place] [address] Anesthesia Record Procedure Summary Procedure Name Responsible Anesthesiologist Anesthesia Start Time Anesthesia Stop Time LARYNGOSCOPY, MICROSCOPE, WITH BIOPSY (WRVU 3.55) (Throat) Ayan Sarah MD 03/28/21 0835 03/28/21 1020 Events Date Time Event Comment 03/28/2021 0813 0835 AN Verify 0835 Start 0835 An Start Data 0843 An Induction 0846 An Intubation 0848 Anesthesia Ready 0858 Quick Note During timeout surgeon reqeusting paralysis as patient enrolled in study 0929 Quick Note ETT kinked per surgeon for sample obtainment. Once ETT unkinked, recruitment breaths given manualy and pt placed back on ventilator 0958 Extubation/LMA Out 1001 an stop data 1007 Quick Note Patient w/ gilbert gence delirium, attempting to move off of stretcher 1020 Recovery or ICU Handoff Maureen ent care was transferred to the destination unit staff after review of the patient's medical history, current anesthetic/surgical status and plan, according to the Provider Handoff Checklist. 1020 Stop Meds Name Total IV Lidocaine 100 mg Propofol 270 mg Rocuronium 50 mg PHENYLephrine 400 mcg ePHEDrine 15 mg Succinylcholine 160 mg REMIfentanil INF 1.02 mg Propofol INF 624.36 mg Dexmedetomidine 20 mcg lactated ringers infusion 500 mL * Agents Name O2 Air N2O Sevoflurane (et) * Blood No blood administrations on file. Lines, Drains, and Airways Type Details Placement Removal Incision 02/23/14; abdomen; o ther (see comments); i&d; 10/13/21 (LDA cleanup utility RA#[id number]); 1715 (LDA cleanup utility RA#[id number]) 02/23/14 0000 by Liana Holley RN 10/13/21 1715 by Demarcus Silveira (RETIRED) Peripheral IV Line - Single Lumen 03/28/21; 0738; metacarpal vein (top of hand), left; vckd-tme-ddenmc catheter system; Anatomical Landmarks; 20 gauge, 1 in length; Donna Rizzo RN; distraction, tolerated well, appears comfortable; 03/28/21; 1119 03/28/21 0738 by Lydia Rizzo RN 03/28/21 1119 by Elizabeth Sterling, NICKIE ETT Mask Ventilation: Ea sy (1); ETT Type: LEGAL TRANSCRIPTIONIST, Oral, Cuffed; ETT Size: 6 mm; Indirect: Video; Notes: Asleep, Pre-O2, Cricoid Pressure, Stylette; Attempts: 1; Laryngoscopy Grade: 1; ETT Placement Verified By: Auscultation, Visual; Inserted by: KG; Removal Date: 03/28/21; Removal Time: 0911/22 0846 by Tabitha Anderson INDUSTRIAL SOCIOLOGIST 03/28/21 0958 by Ayan Sarah MD documented in this encounter Social History Tobacco [...] OR Notes * Anesthesia Postprocedure Evaluation - Ayan Sarah MD - 03/28/2021 11:56 AM EST Department of Anesthesiology Post-procedure Note Patient: Reggie Pena Procedure Summary Date: 03/28/21 Room / Location: [facility] OR [address] [place] [address] MAIN OR Anesthesia Start: 834 Anesthesia Stop: 1019 Procedures: LARYNGOSCOPY, MICROSCOPE, WITH BIOPSY (WRVU 3.55) (N/A Throat) ESOPHAGOSCOPY, RIGID OR FLEXIBLE, DIAGNOSTIC W/WO SPECIMEN COLLECTION (WRVU 1.52) (N/A Esophagus) Diagnosis: Lesion of throat Hoarseness (supraglottic cancer) Surgeons: Mat Casper MD Responsible Provider: Ayan Sarah MD Anesthesia Type: general ASA Status: 3 All Anesthesia Providers: Anesthesiologist: Ayan Sarah MD INDUSTRIAL SOCIOLOGIST: Tabitha Anderson CRNA Vitals Value Taken Time BP 148/87 03/28/21 1100 Temp 36.2 ??C (97.2 ??F) 03/28/21 1017 Pulse Resp 18 03/28/21 1100 SpO2 97 % 03/28/21 1110 Pain Level 4 03/28/21 1100 Vitals shown include unvalidated device data. Patient Location: PACU/[facility] Level of Consciousness: Conscious but Sleepy Pain Management: Satisfactory Analgesia PONV: None Cardiovascular Status: Hemodynamically Stable Respiratory Status: Stable Respiratory Status Postoperative Fluid Status: Intravascular EUvolemia Possible Anesthetic Complications: NONE apparent at time of evaluation Final Primary Anesthesia Type: General (The anesthetic type performed was the same as planned.) Comments: Pt with post op delirium requiring precedex and propofol. * Anesthesia Preprocedure Evaluation - Ayan Sarah MD - 03/27/2021 5:00 PM EST Pre-Anesthesia Evaluation for: Reggie gore 50 y.o. male. Procedure(s): LARYNGOSCOPY, MICROSCOPE, WITH BIOPSY ([facility] 3.[facility]) Patient Active Problem List Diagnosis Date Noted ??? Diabetes mellitus type 2, uncontrolled (DM) 02/26/2014 ??? Morbid obesity 02/26/2014 ??? Hypertension (HTN) 02/26/2014 ??? Tobacco abuse 02/26/2014 ??? Panniculitis 02/23/2014 Past Medical History: Diagnosis Date ??? Diabetes mellitus ??? Obesity ??? Panniculitis No past surgical history on file. Social History Tobacco Use ??? Smoking status: Current Every Day Smoker Packs/day: 4.00 Years: 24.00 Pack years: 96.00 Types: Cigarettes ??? Smokeless tobacco: Never Used Substance Use Topics ??? Alcohol use: No Alcohol/week: 0.0 standard drinks Comment: rare alcohol Social History Substance and Sexual Activity Drug Use No No Known Allergies Medications: MAR and/or home medications have been reviewed. Physical Exam: Preprocedure Vitals Current as of 03/27/21 1700 No BP, pulse, respiration, SpO2, or temperature recorded. Height: 188 cm (6' 2) (03/20/21) Weight: 158.8 kg (350 lb) (03/20/21) BMI: 44.93 IBW: 82.2 kg (181 lb 4.8 oz) Airway Assessment: Mallampati: II Cardiovascular Assessment: system normal Pulmonary Assessment: pulmonary exam normal Dental Assessment: Misc Assessment: Other exam findings: Hoarse voice. Patient able to lay flat without shortness of breath or increased work of breathing. Last Filed Perioperative Cognitive Screening None Anesthesia Plan: ASA 3 general, with a(n) intravenous induction 50 yr old M pmhx tobacco use, HTN, T2DM not on insulin, obesity BMI 45 presenting for laryngoscopy w/ biopsy for laryngeal mass NPO appropriate, denies GERD, 4 mets functional, ROS negative except as above. While patient initially presented with hemoptysis prompting workup, patient denies any recent issues of hemoptysis. Further denies any orthopnea or need to sleep with multiple pillows. No anest history No recent labs Imaging reviewed, CT head/neck notable for large mass arising from epiglottis causing airwaycompression and deviation. ENT Office note: There is a large mass that involves the entire epiglottis, extending to at least anterior aspect of the right aryepiglottic fold, appears to involve the enitre left aryepiglottic fold, left arytenoid tower, and left false vocal fold. The right true vocal fold does not appear to beinvolved, but involvement of the left true vocal fold can not be adequately assessed. The right vocal cord shows full mobility, and the left vocal cord does appear to be mobile as well. Surgeon requesting 6.0 LEGAL TRANSCRIPTIONIST tube Preop glucose check, IV induction with VL for ETT placement w gentle intubation to prevent bleedingof laryngeal lesion w/ LMA/fiberoptic backup Region - Other Informed Consent: Anesthetic plan and risks discussed with patient. Use of blood products discussed with patient who consented to blood products. Plan discussed with INDUSTRIAL SOCIOLOGIST. Anesthesia Screening documented in this encounter Plan of Treatment Upcoming Encounters Date Type Department Care Team (Late st Contact Info) Description 02/02/2024 3:00 PM EST Office Visit Radiation Oncology at [address] [phone] Ag Cruz MD [facility] [place] [address] documented as of this encounter Visit Diagnoses Not on filedocumented in this encounter Administered Medications Inactive Administered Medications - up to 3 most recent administrations Medication Order MAR Action Action Date Dose Rate Site dexmedetomidine (Precedex) (4 mcg/mL) bolus injection (Anesthsia) Intravenous, PRN, Starting on Wed03/28/21 at 1006, Until Wed03/28/21 at 1021, Anesthesia Intra-op, Routine Given 03/28/2021 10:16 AM EST 8 mcg Given 03/28/2021 10:06 AM EST 12 mcg ePHEDrine sulfate (5 mg/mL) multi-dose injection Intravenous, PRN, Starting on Wed03/28/21 at 0855, Until Wed03/28/21 at 1020, Anesthesia Intra-op, Routine Given 03/28/2021 9:03 AM EST 5 mg Given 03/28/2021 8:58 AM EST 5 mg Given 03/28/2021 8:55 AM EST 5 mg lactated ringers infusion 1,000 mL, at 100 mL/hr, Intravenous, CONTINUOUS, Starting on Wed03/28/21 at 0745, Until Wed03/28/21 at 1109, Day of Surgery (Day of Procedure) Restarted 03/28/2021 8:35 AM EST New Bag 03/28/2021 7:38 AM EST 1,000 mLs 100 mL/hr lidocaine (pf) (Xylocaine) (20 mg/mL) 2% injection syringe Intravenous, PRN, Starting on Wed03/28/21 at 0843, Until Wed03/28/21 at 1020, Anesthesia Intra-op, Routine Given 03/28/2021 8:43 AM EST 100 mg PHENYLephrine in NS (PF) (ADAM-SYNEPHRINE) 0.8 mg/10 mL (80 mcg/mL) multi-dose injection Syrg Intravenous, PRN, Starting on Wed03/28/21 at 0858, Until Wed03/28/21 at 1020, Anesthesia Intra-op, Routine Given 03/28/2021 9:09 AM EST 160 mcg Given 03/28/2021 9:03 AM EST 80 mcg Given 03/28/2021 9:00 AM EST 80 mcg propofoL (Diprivan) (10 mg/mL) infusion Intravenous, CONTINUOUS PRN, Starting on Wed03/28/21 at 0847, Until Wed03/28/21 at 1020, Anesthesia Intra-op, Routine Rate/Dose Change 03/28/2021 9:00 AM EST 75 mcg/kg/min 65.34 mL/hr New Bag 03/28/2021 8:47 AM EST 100 mcg/kg/min 87.12 mL/ hr propofoL (Diprivan) 10 mg/mL bolus injection (Anesthesia) Intravenous, PRN, Starting on Wed03/28/21 at 0843, Until Wed03/28/21 at 1020, Anesthesia Intra-op Given 03/28/2021 10:09 AM EST 20 mg Given 03/28/2021 8:43 AM EST 250 mg remifentaniL (Ultiva) (0.02 mg/mL) infusion (Anesthesia) Intravenous, CONTINUOUS PRN, Starting on Wed03/28/21 at 0847, Until Wed03/28/21 at 1020, Anesthesia Intra-op Rate/Dose Change 03/28/2021 9:08 AM EST 0.1 mcg/kg/min 43.56 mL/hr New Bag 03/28/2021 8:47 AM EST 0.2 mcg/kg/min 87.12 mL/ hr rocuronium (Zemuron) (10 mg/mL) multi-dose injection Intravenous, PRN, Starting on Wed03/28/21 at 0858, Until Wed03/28/21 at 1020, Anesthesia Intra-op, Routine Given 03/28/2021 9:25 AM EST 10 mg Given 03/28/2021 8:58 AM EST 40 mg succinylcholine (Anectine;Quelicin) (20 mg/mL) injection Intravenous, PRN, Starting on Wed03/28/21 at 0844, Until Wed03/28/21 at 1020, Anesthesia Intra-op, Routine Given 03/28/2021 8:44 AM EST 160 mg documented in this encounter Care Teams Speech Correction Consultant Relationship Specialty Start Date End Date Weston Tobias PA [address] [place] [address] PCP - General Family Medicine 02/25/21 documented as of this encounter
--- OUTSIDE RECORDS SUMMARY | 2023-12-01 16:03 | XMS_ITS | Encounter Summary ---
Author Organization [facility] Address [place] [address] Care Team Providers Care Manager Oracle Retail Name Role Phone Weston Tobias Primary Care Provider +1- [phone] Reason for Visit * Consultation (Urgent) - Closed Specialty Diagnoses / Procedures Referred By Jose A paz Referred To Contact Otolaryngology Diagnoses Dysphagia, unspecified ABNORMAL BARIUM SWALLOW Weston Tobias PA [address] [place] [address] [facility] Otolaryngology [address] [place] [phone] Referral ID Status Reason Start Date Expiration Date V isits Requested Visits Authorized [id number] Closed Consult, [facility] PCP Updated and/or Approved 02/25/2021 02/25/2022 12 12 Encounter Details Date Type Department Care Team (Late st Contact Info) Description 03/20/2021 1:00 PM EST Office [place] [address] Vasquez Mckinney PA [facility] [place] [address] Lesion of throat; Hoarseness; Dysphagia, unspecified type; Weight loss; History of tobacco use Social History Tobacco Use Types Packs/Day Years [...] - Inhaled Oxygen Concentration - - Weight 158.8 kg (350 lb) 03/20/2021 12:50 PM EST Height 188 cm (6' 2) 03/20/2021 12:50 PM EST Body Mass Index 44.94 03/20/2021 12:50 PM EST documented in this encounter Progress Notes * Vasquez Mckinney PA - 03/20/2021 1:00 PM EST Images from the original note were not included. [facility] OTOLARYNGOLOGY NEW PATIENT CONSULTATION I was asked to see Reggie Pena in consultation by Weston Tobias for throat lesion. History was obtained through review of the relevant records, discussion with referring physician and/or patient interview. He is a 50 year old patient with a history of heavy Tobacco Use and not-well controlled DM2, who presented to his PCP with dysphagia. . He admitted progressive sore throat for 1 year, on the left more than right, as well as hoarseness. He had had a 40 pound weight loss since his last check in April. A barium swallow on 02/17/21 showed the following: IMPRESSION: Irregular filling defect in the hypopharynx pronounced along the anterior margin, extending into the aryepiglottic fold region and epiglottis region highly suspicious for neoplasm He presents today with a CT neck performed this morning. History of present illness: This is a 50 y.o. male Has been losing his voice, and can't eat. Started over a year ago, with a sore throat that has persisted. Dysphagia started 2-3 months ago. Eats whatever he wants, but it hurts, and has a hard time doing it. Has lost over 100 pounds over the last year. Voice started to worsen 3-4 weeks ago. Notes the pain along the left side of his throat. Breathing well, even when lying flat. No otalgia. No hemoptysis. No swelling or lumps in the neck. Mouth is always dry, for years. No numbness in the tongue or throat. No teeth currently. Sense of taste is normal. Tobacco use: 2ppd for almost 30 years. No excessive alcohol use. No drug use. No surgeries in the head or neck. 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 No blood thinner use. Type 2 DM. No issues with lungs, kidneys, heart or other medical problems. Went to [place], told he has a tumor in his throat by an ENT there. PROBLEM LIST Patient Active Problem List Diagnosis Code ??? Panniculitis M79.3 ??? Diabetes mellitus type 2, uncontrolled (DM) E11.65 ??? Morbid obesity E66.01 ??? Hypertension (HTN) I10 ??? Tobacco abuse Z72.0 PAST MEDICAL HISTORY Past Medical History: Diagnosis [...] the vein every 8 hours. 50 mL ??? acetaminophen (TYLENOL) 325 mg Tablet Take 2 tablets by mouth every 6 hours as needed for Pain or Fever. 30 tablet 1 ??? insulin aspart (NOVOLOG) Solution Inject 5 Units subcutaneously 3 times daily (before meals). 10 mL 12 ??? insulin glargine (LANTUS) Solution Inject 28 Units subcutaneously nightly. 10 mL 12 ??? lisinopril (PRINIVIL;ZESTRIL) 10 mg Tablet Take 1 tablet by mouth daily. 30 tablet 12 ??? morphine 2 mg/mL Cartridge Inject 1 mL into the vein every 3 hours as needed (mild pain (1-3)). ??? nystatin (MYCOSTATIN) Cream Apply topically 2 times daily. 30 g 0 ??? ondansetron (ZOFRAN) 4 mg Tablet Take 1 tablet by mouth every 8 hours as needed. 20 tablet 0 ??? polyethylene glycol (MIRALAX) 17 gram Powder in Packet Take 17 g by mouth daily as needed. 14 each 0 ??? senna (SENOKOT) 8.6 mg Tablet Take 1 tablet by mouth 2 times daily. 60 tablet 11 ??? vancomycin (VANCOCIN) 2 gram/500 mL Solution Inject 500 mLs into the vein every 8 hours. No current facility-administered medications on file prior [...] is midline. - Oropharynx symmetric. NECK - Soft, supple, without significant lymphadenopathy. - Thyroid gland without masses or asymmetry. - Trachea midline without deviation. NEURO - Cranial nerves II-XII intact and [...] oropharynx. The examination was recorded on the SETVI Unit and uploadedto the [employer] Paperhanger Assistant. Patient tolerated the procedure well without any complications. Nasal Cavity: Normal appearing mucosa. No obstructions or lesions noted. Nasopharynx: No lesions or masses noted. Oropharynx: Base of tongue/vallecula symmetric with normal appearing lingual tonsillar tissue. No masses, ulcerations or mucosal lesions noted. Larynx: There is a large mass that involves the entire epiglottis, extending to at least anterior aspect ofthe right aryepiglottic fold, appears to involve the enitre left aryepiglottic fold, left arytenoidtower, and left false vocal fold. The right true vocal fold does not appear to be involved, but involvement of the left true vocal fold can not be adequately assessed. The right vocal cord shows fullmobility, and the left vocal cord does appear to be nearly fully mobile as well. Hypopharynx: The left pyriform sinus appears to be effaced, with some pooling of secretions. No overt laryngeal penetration or aspiration. Laryngeal mass Vocal cords, with full right mobility, and apparent full mobility on the left. REVIEW OF IMAGES/STUDIES . CT neck wwo contrast FINDINGS: There is a large mass lesion [...] evidence of distant regional metastases. ASSESSMENT/RECOMMENDATIONS Reggie Pena is a 50 y.o. male with a history of tobacco use of 60 pack years, Obesity, andDM2 whopresents with a sore throat for a year, dysphagia of 2-3 months, and dysphonia for 3-4 weeks. He had recently presented to his PCP with significant weight loss, and a barium swallow test was ordered,showing irregular hypopharynx filling defects suspicious for a neoplasm. He presented to a local ENT yesterday who scoped him and noted a large mass in his throat. The patient mentioned that he is still eating whatever he wants, though with some difficulty and odynophagia. He denied hemoptysis or difficulty with breathing, even when lying flat. On physical exam, he is edentulous, but there was nocervical adenopathy noted. Flexible laryngoscopy revealed a large mass involving the epiglottis, aryepiglottic folds, left more than right, left false vocal fold, left arytenoid tower, and may involve the left true vocal fold; good mobility of the right vocal cord, and continued mobility of the left vocal cord; and effacement and pooling of the left pyriform sinus. The tumor did not obviously appear to involve the tongue base. CT neck imaging today showed the above-noted tumor; but no cervical lymphadenopathy or distant regional metastases was noted. - Discussed with the patient that the lesion appeared to be a cancer, and that the next step in hisworkup was to obtain a tissue sample. Dr. Casper also met with the patient and reviewed his endoscopic exam. He discussed his undergoing direct laryngoscopy with biopsy in the OR in order to obtain a biopsy, as well as to more fully assess the extent of the tumor's involvement. Discussed that with that information, along with likely further imaging, discussion of treatment options could be undertaken. - The patient expressed understanding of these points and agreement with the plan, and all questions that were asked were answered to the patient's satisfaction. Plan: > Direct laryngoscopy with biopsy in the OR. > Patient should call if their symptoms worsen, if new concerning symptoms arise, or if they have any questions or concerns regarding their treatment. I appreciate the opportunity to be involved in Mr. Pena's care. Vasquez Mckinney PA-C [place], [place] [address] Office 03/20/2021 documented in this encounter Plan of Treatment Upcoming Encounters Date Type Department Care Team (Late st Contact Info) Description 02/02/2024 3:00 PM EST Office Visit Radiation Oncology at [address] [phone] Ag Cruz MD [facility] [place] [address] documented as of this encounter Visit Diagnoses Diagnosis Lesion of throat Unspecified disease of pharynx Hoarseness Dysphonia Dysphagia, unspecified type Weight loss Loss of weight History of tobacco use Personal history of tobacco use, presenting hazards to health documented in this encounter Care Teams Manager [employer] Retail Relationship Specialty Start Date End Date Weston Tobias PA [address] [place] [address] PCP - General Family Medicine 02/25/21 documented as of this encounter
--- OUTSIDE RECORDS SUMMARY | 2023-12-01 16:03 | XMS_ITS | Encounter Summary ---
[place] [address] Care Team Providers Care Fine Dining Server Name Role Phone Weston Tobias Primary Care Provider +1- [phone] Encounter Details Date Type Department Care Team (Late st Contact Info) Description 02/25/2021 Telephone [place] [phone] Alysha Pinto Social History Tobacco Use Types [...] * Telephone Encounter - Alysha Pinto - 02/25/2021 3:24 PM EST From: Alysha Pinto Sent: Thursday, February 25, 2021 3:13 PM To: [place] [employer] <[email or web address]> Subject: JAKY images request Importance: High *URGENT* Patient: Reggie Pena : 1970 Aaron, The above patient was referred urgently to our ENT clinic at [facility] dueto findings in recent imaging. Patient had images done at your facility and are needed here for proper transition. Please forward the images & reports JAKY for our provider to review. Specific images & reports we are looking for are Barium Swallow Study dated 02/17/21. Please send them electronically to [facility] to the attention of Dr. Mat Casper. Thank you, Alysha Pinto Sr. Clinical Sewage Treatment Plant Operator- Heel Emery Buffer; Bsa/Aml Compliance Officer Otolaryngology, Audiology, [place] [address] phone: fax: documented in this encounter Plan of Treatment Upcoming Encounters Date Type Department Care Team (Late st Contact Info) Description 02/02/2024 3:00 PM EST Office Visit Radiation Oncology at [address] [phone] Ag Cruz MD [facility] [place] [address] documented as of this encounter Visit Diagnoses Not on filedocumented in this encounter Care Teams Fine Dining Server Relationship Specialty Start Date End Date Weston Tobias PA [address] [place] [address] PCP - General Family Medicine 02/25/21 documented as of this encounter
--- OUTSIDE RECORDS SUMMARY | 2023-12-01 16:03 | XMS_ITS | Encounter Summary ---
Author Organization [facility] [place] [address] Care Team Providers Care Automatic Corn Grinder Operator Name Role Phone Weston Tobias Primary Care Provider +1- [phone] Encounter Details Date Type Department Care Team (Latest Contact Info) Description 03/20/2021 7:45 AM EST Laboratory Appointment Lab [address]L [place] [address] Hoarseness; Dysphagia, unspecified type; Lesion of throat [...] EST Office Visit Radiation Oncology at [address] [phone] Ag Cruz MD [facility] [place] [address] documented as of this encounter Procedures Procedure Name Priority Date/Time Associated Diagnosis Comments HC CREATININE STAT 03/20/2021 7:13 AM EST Hoarseness Dysphagia, unspecified type Lesion of throat documented in this encounter Results * (ABNORMAL) Creatinine (03/20/2021 7:13 AM EST) Creatinine 0.76(L) 0.80 - 1.50 mg/dL [facility] Est Glomerular Filtration Rate 108 >=60 mL/min/1. 73 m?? [facility] Comment: This patient? s estimated glomerular filtration rate (eGFR) is between 108 mL/min/1.73 m2 (patients with less muscle mass per kg body weight) and 125 mL/min/1.73 m2 (patients with more muscle mass [...] and symptoms in addition to eGFR. Blood 03/20/2021 7:13 AM EST 03/20/2021 7:30 AM EST Narrative Resulting Agency Comment Spec In Lab Mat Casper MD CHEMISTRY ORDERABL ES [facility] [place] [id number] documented in this encounter Visit Diagnoses Diagnosis Hoarseness Dysphonia Dysphagia, unspecified type Lesion of throat Unspecified disease of pharynx documented in this encounter Care Teams Automatic Corn Grinder Operator Relationship Specialty Start Date End Date Weston Tobias PA [address] [place] [address] PCP - General Family Medicine 02/25/21 documented as of this encounter
--- OUTSIDE RECORDS SUMMARY | 2023-12-01 16:03 | XMS_ITS | Encounter Summary ---
[place] [address] Care Team Providers Care Senior Contracts Administrator Name Role Phone Weston Tobias Primary Care Provider +1- [phone] Reason for Referral * Diagnostic Test (Routine) - Closed Specialty Diagnoses / Procedures Referred By Contac t Referred To Contact Radiology Diagnoses Hoarseness Dysphagia, unspecified type Lesion of throat Procedures CT Neck Soft Tissue w Contrast (Generic) Vasquez Mckinney PA [facility] [place] [address] [facility] [place] [address] Referral ID Status Reason Start Date Expiration Date V isits Requested Visits Authorized [id number] Closed Specialty Service Requested 03/12/2021 09/08/2021 1 1 Reason for Visit * Diagnostic Test (Routine) - Closed Specialty Diagnoses / Procedures Referred By Contac t Referred To Contact Radiology Diagnoses Hoarseness Dysphagia, unspecified type Lesion of throat Procedures CT Neck Soft Tissue w Contrast (Generic) Vasquez Mckinney PA [facility] [place] [address] [facility] [place] [address] Referral ID Status Reason Start Date Expiration Date V isits Requested Visits Authorized [id number] Closed Specialty Service Requested 03/12/2021 09/08/2021 1 1 Encounter Details Date Type Department Care Team (Latest Contact Info) Description 03/20/2021 7:21 AM EST - 03/20/2021 11:59 PM EST Hospital Encounter CT Scan at [facility] [place] [address] Mat Casper MD [facility] [place] [address] Hoarseness; Dysphagia, unspecified type; Lesion of throat Discharge Disposition: Home Social History Tobacco Use [...] 02/26/2014 04/07/2021 documented as of this encounter Plan of Treatment Upcoming Encounters Date Type Department Care Team (Late st Contact Info) Description 02/02/2024 3:00 PM EST Office Visit Radiation Oncology at [address] [phone] Ag Cruz MD [facility] [place] [address] documented as of this encounter Procedures Procedure Name Priority Date/Time Associated Diagnosis Comments CT NECK SOFT TISSUE W CONTRAST Routine 03/20/2021 8:38 AM EST Hoarseness Dysphagia, unspecified type Lesion of throat documented in this encounter Results * CT [...] have questions please contact the health care aid that requested your imaging first. ? Electronically signed by: Jimmy Rowan MD, [facility] ([phone]), at 03/20/2021 10:59 AM Narrative 03/20/2021 10:59 [...] who have questions please contactthe health care aid that requested your imaging first. Electronically signed by: Jimmy Rowan MD, [facility]([phone]), at 03/20/2021 10:59 AM Mat Casper MD IMG CT ORDERABLES documented in this encounter Visit Diagnoses Diagnosis Hoarseness Dysphonia Dysphagia, unspecified type Lesion of throat Unspecified disease of pharynx documented in this encounter Administered Medications Inactive Administered Medications - up to 3 most recent administrations Medication Order MAR Action Action Date Dose Rate Site iohexoL (Omnipaque) (350 mg/mL) solution 0-200 mL 0-200 mL, Intravenous, ONCE PRN, 1 dose, Starting on Christina 03/20/21 at 0836, Until Christina 03/20/21 at 0836, Per Protocol, Warning Vesicant/Irritant Medication , Radiology Contrast, Routine Given 03/20/2021 8:36 AM EST 110 mLs documented in this encounter Care Teams Senior Contracts Administrator Relationship Specialty Start Date End Date Weston Tobias [address] [place] [address] PCP - General Family Medicine 02/25/21 documented as of this encounter
--- OUTSIDE RECORDS SUMMARY | 2023-12-01 16:03 | XMS_ITS | Encounter Summary ---
[place] [address] Care Team Providers Care Blasting Contract Man Name Role Phone Weston Tobias Primary Care Provider +1- [phone] Reason for Visit * Diagnostic Test (Routine) - Closed Specialty Diagnoses / Procedures Referred By Contdavid t Referred To Contact Radiology Diagnoses Airway obstruction Procedures NM PET CT Standard Plus Head and Neck Mulugeta Harman DO [address] [place] [address] [place] [address] Referral ID Status Reason Start Date Expiration Date V isits Requested Visits Authorized [id number] Closed Specialty Service Requested 03/27/2021 09/21/2021 1 1 Encounter Details Date Type Department Care Team (Late st Contact Info) Description 03/31/2021 7:42 AM EST - 03/31/2021 11:59 PM [facility] Hospital Encounter [place] [address] Mulugeta Harman DO [address] [place] [address] Discharge Disposition: Home Social History Tobacco Use [...] EST Office Visit Radiation Oncology at [address] [phone] Ag Cruz MD [facility] [place] [address] documented as of this encounter Procedures Procedure Name Priority Date/Time Associated Diagnosis Comments NM PET CT STANDARD PLUS HEAD AND NECK Routine 03/31/2021 9:14 AM EST Airway obstruction documented in this encounter Results * NM PET CT Standard Plus Head and Neck (03/31/2021 9:14 AM EST) Anatomical Region Laterality Modality Positron Emissio n Tomography (PET) Impressions 03/31/2021 1:48 PM EST 1. ??Approximately 4 cm FDG avid mass in the left supraglottic larynx extending superiorly into the left lingual tonsil/base of tongue region where crosses midline into the right lingual tonsil region. 2. 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 3. ??No distant sites of metastasis. I have personally reviewed the image(s) and the resident's interpretation and agree with the findings, Stu Rosario MD at 03/31/2021 1:48 PM Thank you for letting us participate in the care of this patient. ??If you are a health care provider and have any questions regarding this report, please contact the number below. ??For patients who have questions please contact the health day care worker that requested your imaging first. ? Narrative 03/31/2021 1:48 PM EST EXAMINATION: NM PET CT STANDARD PLUS HEAD AND NECK CLINICAL HISTORY: 50-year-old male with dysphagia and 40 pound weight loss and concern for supraglottic tumor on CT neck and flexible laryngoscopy TECHNIQUE: Following IV injection of 37-wlbzci-1-deoxyglucose (FDG) a standard uptake of approximately 60 minutes, a noncontrast CT scan followed by a PET scan were acquired from the top of head to mid thighs. The noncontrast CT was used for anatomic localization and photon attenuation correction of the PET scan. Blood glucose level: 66 (mg/dL) FDG dose: 18.1 mCi COMPARISON: CT neck to 03/20/2021 FINDINGS: HEAD: Normal activity in all soft tissue regions. NECK: Approximately 4 cm FDG avid lobulated mass in the left supraglottic larynx extending superiorly into the left lingual tonsil/base of tongue region where it crosses midline into the right lingual tonsil region (spanning axial images 77 through 91). ?? Small FDG avid adenopathy in the bilateral level 2 regions (axial images 74-79). Small FDG avid lymph node in the left level 3 region (axial image 88). CHEST: Normal activity in all soft tissue regions. No lymphadenopathy. Coronary and aortic calcifications present. ABDOMEN/PELVIS: Normal activity in all soft tissue regions. Prominent but within the range of physiologic bowel activity throughout the colon and rectum. No lymphadenopathy. SKELETON/EXTREMITIES: Mild diffusely increased marrow activity in the axial and visualized proximal appendicular skeleton, consistent with reactive marrow. Procedure Note Stu Rosario MD - 03/31/2021 EXAMINATION: NM PET CT STANDARD PLUS HEAD AND NECK CLINICAL HISTORY: 50-year-old male with dysphagia and 40 pound weight loss and concern for supraglottic tumor on CT neck and flexible laryngoscopy TECHNIQUE: Following IV injection of 73-spptmd-1-deoxyglucose (FDG) astandard uptake of approximately 60 minutes, a noncontrast CT scan followed by aPET scan were acquired from the top of head to mid thighs. The noncontrast CT wasused for anatomic localization and photon attenuation correction of the PETscan. Blood glucose level: 66 (mg/dL) FDG dose: 18.1 mCi COMPARISON: CT neck to 03/20/2021 FINDINGS: HEAD: Normal activity in all soft tissue regions. NECK: Approximately 4 cm FDG avid lobulated mass in the left supraglotticlarynx extending superiorly into the left lingual tonsil/base of tongue regionwhere it crosses midline into the right lingual tonsil region (spanning axialimages 77 through 91). Small FDG avid adenopathy in the bilateral level 2 regions (axial [id number]). Small FDG avid lymph node in the left level 3 region (axial image 88). CHEST: Normal activity in all soft tissue regions. No lymphadenopathy. Coronaryand aortic calcifications present. ABDOMEN/PELVIS: Normal activity in all soft tissue regions. Prominent but within the rangeof physiologic bowel activity throughout the colon and rectum. Nolymphadenopathy. SKELETON/EXTREMITIES: Mild diffusely increased marrow activity in the axial and visualizedproximal appendicular skeleton, consistent with reactive marrow. IMPRESSION 1. Approximately 4 cm FDG avid mass in the left supraglottic larynxextending superiorly into the left lingual tonsil/base of tongue region wherecrosses midline into the right lingual tonsil region. 2. 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 3. No distant sites of metastasis. I have personally reviewed the image(s) and the resident's interpretationand agree with the findings, Stu Rosario MD at 03/31/2021 1:48 PM Thank you for letting us participate in the care of this patient. If youare a health care provider and have any questions regarding this report,please contact the number below. For patients who have questions please contactthe health day care worker that requested your imaging first. Mulugeta Harman DO IMG PET ORDERAB LES documented in this encounter Visit Diagnoses Not on filedocumented in this encounter Administered Medications Inactive Administered Medications - up to 3 most recent administrations Medication Order MAR Action Action Date Dose Rate Site fludeoxyglucose (F-18) FDG injection 0-20 mCi 0-20 mCi, Intravenous, ONCE PRN, 1 dose, Starting on Wed03/31/21 at 0801, Until Wed03/31/21 at 0756, Per Protocol, Radiology Contrast, Routine Given 03/31/2021 7:56 AM EST 18.1 mCi Right Arm documented in this encounter Care Teams Blasting Contract Man Relationship Specialty Start Date End Date Weston Tobias PA [address] [place] [address] PCP - General Family Medicine 02/25/21 documented as of this encounter
--- OUTSIDE RECORDS SUMMARY | 2023-12-01 16:03 | XMS_ITS | Encounter Summary ---
[place] [address] Care Team Providers Care Mysql Dba Name Role Phone Weston Tobias Primary Care Provider [phone] Encounter Details Date Type Department Care Team (Late Contact Info) Description 02/28/2021 Orders [place] [id number] Paty Kimbrough RN Hoarseness; Dysphagia, unspecified type; Lesion of throat [...] as of this encounter Miscellaneous Notes * Addendum Note - Vasquez Mckinney PA - 02/28/2021 3:38 PM ESTAddended by: VASQUEZ MCKINNEY on: 02/28/2021 05:21 PM Modules accepted: Orders documented in this encounter Plan of Treatment Upcoming Encounters Date Type Department Care Team (Late Contact Info) Description 02/02/2024 3:00 PM EST Office Visit Radiation Oncology at [address] [address] Ag Cruz MD [facility] [place] [address] documented as of this encounter Results * (ABNORMAL) Creatinine (03/20/2021 [...] CHEMISTRY ORDERABL ES [facility] [place] [place] [address] documented in this encounter Visit Diagnoses Diagnosis Hoarseness Dysphonia Dysphagia, unspecified type Lesion of throat Unspecified disease of pharynx documented in this encounter Care Teams Mysql Dba Relationship Specialty Start Date End Date Weston Tobias PA [address] [place] [address] PCP - General Family Medicine 02/25/21 documented as of this encounter
--- OUTSIDE RECORDS SUMMARY | 2023-12-01 16:03 | XMS_ITS | Encounter Summary ---
[place] [address] Care Team Providers Care Hat Model Name Role Phone Valerie Darling MD Primary Care Provider [phone] Encounter Details Date Type Department Care Team (Late Contact Info) Description 12/30/2015 Telephone [place] [phone] Vanna Li Social History Tobacco Use Types Packs/Day Years [...] encounter Miscellaneous Notes * Telephone Encounter - Vanna Li - 12/30/2015 1:18 PM EST LMOM for Mr. Pena to check in and to let him know that I am mailing him more information. I asked him to call and check in. documented in this encounter Plan of Treatment Upcoming Encounters Date Type Department Care Team (Late Contact Info) Description 02/02/2024 3:00 PM EST Office Visit Radiation Oncology at [address] [phone] Ag Cruz MD [facility] [place] [address] documented as of this encounter Visit Diagnoses Not on filedocumented in this encounter Care Teams Hat Model Relationship Specialty Start Date End Date Valerie Darling MD [facility] [address] [place] [address] [place] [address] PCP - General 01/07/10 02/24/21 documented as of this encounter
--- OUTSIDE RECORDS SUMMARY | 2023-12-01 16:03 | XMS_ITS | Encounter Summary ---
[place] [address] Care Team Providers Care Software Security Consultant Name Role Phone Valerie Darling MD Primary Care Provider [phone] Encounter Details Date Type Department Care Team (Late Contact Info) Description 02/20/2014 [place] [address] [place] [address] Social History Tobacco Use Types Packs/Day Years [...] EST Office Visit Radiation Oncology at [address] [phone] Ag Cruz MD [facility] [place] [address] documented as of this encounter Procedures Procedure Name Priority Date/Time Associated Diagnosis Comments FILM LIBRARY STORAGE ONLY DX CHEST Routine 02/20/2014 9:15 AM EST documented in this encounter Results * Film Library- Storage only DX Chest (02/20/2014 9:15 AM EST) Anatomical Region Laterality Modality Other 02/20/2014 9:15 AM EST Narrative 02/23/2014 4:08 PM EST This is a Non-reportable exam Procedure Note MARGARET, UNSIGNED REPORT - 02/23/2014 This is a Non-reportable exam Elder Webb MD [facility] FILM LIBRARY ORD ERABLES documented in this encounter Visit Diagnoses Not on filedocumented in this encounter Care Teams Software Security Consultant Relationship Specialty Start Date End Date Valerie Darling MD [facility] [address] [place] [address] [place] [address] PCP - General 01/07/10 02/24/21 documented as of this encounter
--- OUTSIDE RECORDS SUMMARY | 2023-12-01 16:03 | XMS_ITS | Encounter Summary ---
Author Organization [facility] [place] [address] Care Team Providers Care Perch Mender Name Role Phone Weston Tobias Primary Care Provider [phone] Reason for Visit * Auth/Cert Specialty Diagnoses / Procedures Referred By Jose A paz Referred To Contact Diagnoses Dysphonia Other diseases of pharynx supraglottic cancer Procedures PRO LARYNGOSCOPY, DIRCT, OP SCOPE, BIOPSY LARYNGOSCOPY, MICROSCOPE, WITH BIOPSY (WRVU 3.55) Referral ID Status Reason Start Date Expiration Date Visits Re quested Visits Authorized [id number] 1 1 Encounter Details Date Type Department Care Team (Latest Contact Info) Description 03/28/2021 6:40 AM EST - 03/28/2021 11:40 AM [facility] Hospital Encounter [place] [address] Mat Casper MD [facility] [place] [address] Lesion of throat; Hoarseness Discharge Disposition: Home Social History Tobacco Use [...] Sign Reading Time Taken Comments Blood Pressure 148/87 03/28/2021 11:00 AM EST Pulse 74 03/28/2021 7:12 AM EST Temperature 36.2 ??C (97.2 ??F) 03/28/2021 10:[address] Respiratory Rate 18 03/28/2021 11:00 AM EST Oxygen Saturation 99% 03/28/2021 11:00 AM EST Inhaled Oxygen Concentration - - [...] -You can reach the ENT clinic at [phone] for appointment questions. -The ENT triage nurse is available at [phone] -For urgent issues during evenings and weekends the ENT resident iron miner blasting can be reached through [facility] profiling machine set up operator at [phone] Follow Up: You will need to follow [...] Provider Department Dept Phone 03/31/2021 9:30 AM [facility] PET 1 Nuclear Medicine at [facility] Arrive at: 3Z [facility] RADIOLOGY [phone] documented in this encounter Medications at Time [...] procedure. ELIDA Leonard 03/28/21 7:45 AM Pager: [phone] documented in this encounter Miscellaneous Notes * [...] EST Office Visit Radiation Oncology at [address] [phone] Ag Cruz MD [facility] [place] [address] documented as of this encounter Procedures Procedure [...] Routine 03/28/2021 9:06 AM EST Esophagoscopy, Diagnostic ([id number]) Yes 03/28/2021 8:35 AM EST Lesion of throat Hoarseness Laryngoscopy, Dirct, Op Scope, Biopsy ([id number]) Yes 03/28/2021 8:35 AM EST Lesion of [...] OF CARE TEST ORDERABLES Performing Organization Address [facility]/ZIP Co de Phone Number [facility] [place] [address] * Specimen to Pathology (03/28/2021 9:31 AM EST) AP Specimen 03/28/2021 9:31 AM EST 03/28/2021 9:31 AM EST Narrative [facility] - 03/28/2021 9:31 AM EST Specimen requisition ordered. ??Separate Pathology report to follow aMt Casper MD PATHOLOGY/CYTOLOGY ORDERABLES Performing Organization Address City/[facility]/ZIP Co de Phone Number [facility] [place] [address] * Specimen to Pathology (03/28/2021 9:23 AM EST) AP Specimen 03/28/2021 9:23 AM EST 03/28/2021 9:23 AM EST Narrative [facility] - 03/28/2021 9:23 AM EST Specimen requisition ordered. ??Separate Pathology report to follow Mat Casper MD PATHOLOGY/CYTOLOGY ORDERABLES Performing Organization Address City/[facility]/ZIP Co de Phone Number [facility] [place] [address] * Specimen to Pathology (03/28/2021 9:19 AM EST) AP Specimen 03/28/2021 9:19 AM EST 03/28/2021 9:19 AM EST Narrative [facility] - 03/28/2021 9:19 AM EST Specimen requisition ordered. ??Separate Pathology report to follow Mat Casper MD PATHOLOGY/CYTOLOGY ORDERABLES Performing Organization Address [facility] [place] [address] * Specimen to Pathology (03/28/2021 9:18 AM EST) AP Specimen 03/28/2021 9:18 AM EST 03/28/2021 9:18 AM EST Narrative [facility] - 03/28/2021 9:18 AM EST Specimen requisition ordered. ??Separate Pathology report to follow Mat Casper MD PATHOLOGY/CYTOLOGY ORDERABLES Performing Organization Address [facility] de Phone Number [facility] [place] [address] * Surgical Pathology Report (03/28/2021 9:06 AM EST) Final Diagnosis [id number] ? Location: [facility]; [facility]; The signing pathologist has (i) [...] MD Verified: ??04/03/2021 13:25 ??Pathologist Performed at: ??-[facility] Dept. of Pathology, [place], [place] SPECIMEN(S) SUBMITTED A - Left false [...] Casper MD PATHOLOGY/CYTOLOGY ORDERABLES Performing Organization Address City/[facility]/ZIP Co de Phone Number [facility] [place] [address] * Specimen to Pathology (03/28/2021 9:06 AM EST) AP Specimen 03/28/2021 9:06 AM EST 03/28/2021 9:06 AM EST Narrative [facility] - 03/28/2021 9:06 AM EST Specimen requisition ordered. ??Separate Pathology report to follow Mat Casper MD PATHOLOGY/CYTOLOGY ORDERABLES Performing Organization Address [facility]/ZIP Co de Phone Number [facility] [place] [address] * Specimen to Pathology (03/28/2021 9:06 AM EST) AP Specimen 03/28/2021 9:06 AM EST 03/28/2021 9:06 AM EST Narrative [facility] - 03/28/2021 9:06 AM EST Specimen requisition ordered. ??Separate Pathology report to follow Mat Casper MD PATHOLOGY/CYTOLOGY ORDERABLES [facility] [place] [address] * POCT Glucose (03/28/2021 7:21 AM EST) Glucose, POC 111 65 - 199 mg/dL [facility] Comment: Supplemental ranges: <140 mg/dL before meals <180 mg/dL all other times of the day Blood 03/28/2021 7:21 AM EST 03/28/2021 7:21 AM EST Mat Casper MD POINT OF CARE TEST ORDERABLES Performing Organization Address [facility] Co de Phone Number [facility] [place] [address] documented in this encounter Visit Diagnoses Diagnosis [...] 0944, Until Wed03/28/21 at 1354, Pain, Routine fentaNYL (pf) (50 mcg/mL) multi-dose injection 25 [...] Routine documented in this encounter Care Teams Perch Mender Relationship Specialty Start Date End Date Weston Tobias PA [address] [place] [address] PCP - General Family Medicine 02/25/21 documented as of this encounter
--- OUTSIDE RECORDS SUMMARY | 2023-12-01 16:03 | XMS_ITS | Encounter Summary ---
[place] [address] Care Team Providers Care Associate Professor Of Biostatistics Name Role Phone Valerie Billings MD Primary Care Provider [phone] Encounter Details Date Type Department Care Team (Latest Contact Info) Description 02/23/2014 6:42 PM EST - 02/26/2014 1:27 PM EST Hospital Encounter [address] [place] [address] [place] [address] [place] [address] Discharge Disposition: Other [facility] Social History Tobacco Use Types Packs/Day Years Used Date Smoking Tobacco: Every Day Cigarettes 4 24 Smokeless Tobacco: Never Tobacco Cessation:Ready to Q uit: Yes; Counseling Given: Yes Alcohol Use Standard Drinks/Week Comments No 0 (1 standard drink = 0.6 oz pur e alcohol) rare alcohol Sex and Gender Information Value Date Recorded Sex Assigned at Not on file Gender Identity Not on file Sexual Orientation Not on file documented as of this encounter Last Filed Vital Signs Vital Sign Reading Time Taken Comments Blood Pressure 148/87 02/26/2014 11:52 AM EST Pulse 58 02/26/2014 11:52 AM EST Temperature 36.6 ??C (97.9 ??F) 02/26/2014 1 1:52 AM EST Respiratory Rate 20 02/26/2014 11:5 2 AM EST Oxygen Saturation 93% 02/26/2014 11: 52 AM EST Inhaled Oxygen Concentration - - Weight 102.4 kg (225 lb 12.8 oz) 2014 10:25 PM EST Height 188 cm (6' 2) 02/23/2014 8:30 PM EST Body Mass Index 28.99 02/23/2014 8:30 PM EST documented in this encounter Discharge Summaries * Zoie Gong DO - 02/26/2014 10:49 AM EST Discharge Summary Patient Name: Reggie Pena Patient Age: 43 y.o. Language: Algerian Race: White Ethnicity: Not nor Admit date: 02/23/2014 Discharge date and time: 02/26/2014 11:14 AM Attending Physician: Zoie Gong DO Discharge Physician: ZOIE GONG DO Follow-up Recommendations for Providers: -follow up on wound culture results from [facility] and [facility]. -DM teaching for uncontrolled DM and starting outpatient insulin with Lantus -tob cessation -DM diet -activity as tolerated -controlled outpt weight loss for [place] Inpatient Provider Contact Information: For questions regarding this document or issues relating to this hospitalization on the Medical Service, please contact your inpatient physician through the [facility] Slot Floor Supervisor . Issues afterhours and on weekends will be handled by the Hospitalist staff on-call. Discharge Diagnoses (Hospital Problems) and Secondary Diagnoses (Chronic Problems): Active Hospital Problems Diagnosis ??? Panniculitis ??? Diabetes mellitus type 2, uncontrolled (DM) ??? Morbid obesity ??? Hypertension (HTN) ??? Tobacco abuse Resolved Hospital Problems Diagnosis Date Resolved No resolved problems to display. CONSULTS: Surgery Procedures: Bedside I&D 02/23/14 panniculitis with left sided abcess History of Presentation: 43yo M morbid obesity, DM2, recurrent cellulitis/ panniculitis presents to [facility] for surgical evaluation of abscess management in the setting of panniculiits. Patient presented to [facility] on 02/20/14 for fevers and malaise in the week prior to this arrival that then accompanied left lower abdominal pain similar to prior panniculitis episodes. In their ED he was noted to have panniculitis with spreading cellulitis and admitted for IV Zosyn and Vancomycin. At some point an attempt to probe a port of entry was done without any pain medications and he stopped this attempt due to severe pain. No further attempts were made and he was transferred to [facility] for further surgical evalua tion given the lack of anesthesia back up there at [facility]. Additionally Lisinopril 10mg was started for HTN and his glipizide increased to 7.5mg BID. Hospital Course: Pt was seen by surgery who preformed bedside I&D on 02/23/14 with local anesth. A 2cm incision was made in lower Abd, left of midline. An area was probed laterally approx 4-5 cm. Wound culturres obtained and areapacked. (please see surgeries note). They felt that no further surgical intervention was necessary.The patient has been on vanco and zosyn. He has had signif improvement in his area of infection with reduced erythema and pain. His left lower abd incision site is being packed BID. The wound cultures are negative to date, but need to be followed up. He has Type 2 DM which is uncontrolled. His HgbA1c is 9.7. He was started on lantus which is upto 28 units. He agrees to continue with outpt insulin and will need further DM teaching. His BP has been controlled on lisinopril. Recommend further education in regards to encouraging tob cessation and outpt wt loss. Vital Signs at Discharge: BP: 137/58 mmHg, Heart Rate: 61, Temp: 36.3 ??C (97.4 ??F), Resp: 20, Height: 188 cm (6' 2) (02/23/142029) Weight - Scale: 102.422 kg (225 lb 12.8 oz) (02/23/145) Functional and Cognitive Status: Good Important Studies and Lab Data: Labs: Recent Labs 02/26/14 0713 02/25/14 0525 02/24/14 0654 WBC 9.6 9.4 10.0 HGB 13.0* 12.1* 12.1* HCT 38.7* 37.2* 36.6* PLATELET 235 210 199 Recent Labs 02/26/14 0713 02/25/14 0525 02/24/14 0654 NA 135 136 138 K 4.0 3.7 3.7 CL 96* 96* 95* CO2 30 30 28 BUN 6* 6* 6* CREATININE 0.56* 0.57* 0.52* No results found for this basename: AST, ALT, ALKPHOS, BILITOT, BILIDIR, in the last 168 hours Recent Labs 02/26/14 0713 02/25/14 0525 02/24/14 0654 CALCIUM 8.7 8.5 8.1* Recent Labs 02/24/14 0654 PT 15.2 INR 1.1 PTT 34 Pending Studies and Lab Data: Wound cultures Discharge Conditions/Prognosis: stable improve with tx Discharge to: [facility] to Dr Troncoso Updated Allergies/ADRs: No Known Allergies Immunizations Given this Hospitalization: There is no immunization history on file for this patient. Discharge Medications: Your Medications New Medications Dose Details acetaminophen 325 mg Tab Commonly known as: TYLENOL Take 2 tablets by mouth every 6 hours as needed for Pain or Fever. 650 mg Quantity: 30 tablet Refills: 1 docusate sodium 100 mg Cap Commonly known as: COLACE Take 1 capsule by mouth 2 times daily for 10 days. 100 mg Quantity: 10 capsule Refills: 0 enoxaparin 40 mg/0.4 mL Syrg Commonly known as: LOVENOX Inject 0.4 mLs subcutaneously daily. 40 mg Refills: 0 insulin aspart Soln Commonly known as: novoLOG Inject 5 Units subcutaneously 3 times daily (before meals). 5 Units Quantity: 10 mL Refills: 12 insulin glargine Soln Commonly known as: LANTUS Inject 28 Units subcutaneously nightly. 28 Units Quantity: 10 mL Refills: 12 lisinopril 10 mg Tab Commonly known as: PRINIVIL;ZESTRIL Take 1 tablet by mouth daily. 10 mg Quantity: 30 tablet Refills: 12 morphine 2 mg/mL Crtg Inject 1 mL into the vein every 3 hours as needed (mild pain (1-3)). 2 mg Refills: 0 nystatin Crea Commonly known as: MYCOSTATIN Apply topically 2 times daily. Quantity: 30 g Refills: 0 ondansetron 4 mg Tab Commonly known as: ZOFRAN Take 1 tablet by mouth every 8 hours as needed. 4 mg Quantity: 20 tablet Refills: 0 piperacillin-tazobactam 3.375 gram/50 mL Pgbk Commonly known as: ZOSYN Inject 50 mLs into the vein every 8 hours. 3.375 g Quantity: 50 mL Refills: 0 polyethylene glycol 17 gram Pwpk Commonly known as: MIRALAX Take 17 g by mouth daily as needed. 17 g Quantity: 14 each Refills: 0 senna 8.6 mg Tab Commonly known as: SENOKOT Take 1 tablet by mouth 2 times daily. 1 tablet Quantity: 60 tablet Refills: 11 vancomycin 2 gram/500 mL Soln Commonly known as: VANCOCIN Inject 500 mLs into the vein every 8 hours. 2 g Refills: 0 STOPPED Medications glipiZIDE 5 mg Tab Commonly known as: GLUCOTROL Smoking Status at Discharge: History Smoking status ??? Current Every Day Smoker -- 4.00 packs/day for 24 years ??? Types: Cigarettes Smokeless tobacco ??? Never Used Instructions Given to Patient at Discharge: Patient Instructions Pt being transferred back to [facility] At patients request. Discussed with accepting physician Dr. Troncoso. Follow all wound care instructions per surgery and wound care. Encourage quit smoking and outpatient weight loss. Better adherence to DM diet. Agrees to start outpt Lantus - will need additional DM teaching prior to d/c from [facility]. General Instructions Discharge References/Attachments DIABETES: HOME BLOOD GLUCOSE TEST (NIUEAN) DIABETES: TYPE 2 (NIUEAN) SMOKING: STOPPING (NIUEAN) documented in this encounter Discharge Instructions * Patient Instructions* Zoie Gong DO - 02/26/2014 10:40 AM EST Pt being transferred back to [facility] At patients request. Discussed with accepting physician Dr. Troncoso. Follow all wound care instructions per surgery and wound care. Encourage quit smoking and outpatient weight loss. Better adherence to DM diet. Agrees to start outpt Lantus - will need additional DM teaching prior to d/c from [facility]. * Attachments The following attachments cannot be sent through Care Everywhere. * DIABETES: HOME BLOOD GLUCOSE TEST (NIUEAN) * DIABETES: TYPE 2 (NIUEAN) * SMOKING: STOPPING (NIUEAN) documented in this encounter Medications at Time of Discharge Medication Sig Dispensed Refills Start Date End Date docusate sodium (COLACE) 100 mg Capsule Take 1 capsule by mouth 2 times daily for 10 days. 10 capsule 0 02/26/2014 03/08/2014 enoxaparin (LOVENOX) 40 mg/0.4 mL Syringe Inject 0.4 mLs subcutaneously daily. 02/26/2014 04/29/2021 piperacillin-tazoba ctam (ZOSYN) 3.375 gram/50 mL Piggyback Inject 50 [...] 02/26/2014 04/07/2021 documented as of this encounter Progress Notes * Elizabet Wu RN - 02/26/2014 1:36 PM EST Patient Name: Reggie Pena Patient Age: 43 y.o. Birthdate: 1970 Admit date: 02/23/2014 Attending Physician: No att. providers found Patient AOx4, no c/o pain, VSS. Discharge summary reviewed with patient, patient verbalizes understanding. Patient covered with 9 units SSI prior to eating lunch time meal and discharge. Patient's pannus dressing C/D/I. Patient taken via ambulance to [facility]. Report called to Mayra FU. * Valerie Rangel RN - 02/26/2014 12:37 PM EST Patient Name: Reggie Pena : 1970 Patient has been offered a acute bed at [facility] for today. No MD to MD report necessary Please call Nursing Report to [phone] ask for driller operator. Info to accompany patient: Copies of Medication Administration Records and IV sheets for past two weeks. [facility] arranged for a 1:30 transport. Ambulance will need: Medicare ambulance form completed and signed (MD or CRC) Copy of patient demographics [place] or [place] Out of Hospital DNR/DNI order, if active Patient will be discharged to: [facility]- [address] [place] [address] Plan: Elementary [employer] Teacher'S Aide will be available to the patient and CRC for further assistance. Valerie Rangel RN Pager [phone] * Brianna Robbins MD - 02/26/2014 12:15 PM EST General Surgery Progress Note ID: 43yo smoker with obesity, DM type 2, and history of recurrent RLE cellulitis infections presenting from OSH with abdominal wall cellulitis and abscess now s/p bedside I&D. 24H/S: no acute events overnight. Reports that pain is much better compared to yesterday. O: Last value Range last 24 hrs Temperature Temp: 36.6 ??C (97.9 ??F) Temp: [36.3 ??C (97.4 ??F)-36.7 ??C (98.1 ??F)] Heart Rate Heart Rate: 58 Heart Rate: [58-69] Blood Pressure BP: 148/87 mmHg BP: (120-148)/(58-87) Respiratory Rate Resp: 20 Resp: [18-20] SpO2 SpO2: 93 % SpO2: [93 %-100 %] room air Physical Exam: Gen: NAD, alert and oriented CV: regular rate Pulm: Breathing comfortably on RA Abd: obese, blanching erythema starting approximately 10cm below the umbilicus and extending acrossthe lower abdomen -- appears to be smaller in distribution compared to yesteday, less bright. In crease of pannus to left of midline is small 2cm incision that is packed, packing removed, cont to drain purulent material nicely. Minimal surrounding erythema in this region. Repacked. Labs: WBC 9.6 Assessment: 43yo man as described above, appears to be improving on abx and following drainage of small abscess. No indication for more aggressive surgery at this time. Cont local wound care - changepacking BID and prn. Cont abx and await final culture results. Recommendations: Cont local wound care - change packing BID and prn. Cont abx, adjust vanc dose as needed, follow cultures. Brianna Robbins MD PGY-1 Pager: [phone] * Aryan Hillman, PT - 02/26/2014 12:12 PM EST Physical Therapy Note I am okay. PT referral received, chart reviewed, attempted to see pt this morning, and he declined need for PT. He has been mobilizing in the room independently, and is preparing to transfer to a hospital closer to home later today. He reports no PT needs at this time. Will monitor pt's status while he remains in-house and follow up as appropriate. RN aware of pt's status. Aryan Hillman, PT Beeper# [phone] * Jessica Núñez RN - 02/26/2014 9:[address] Zoie Gong advises that patient would like to return to [facility]. CRC spoke withRenata Keller, Nurse Billing And Accounting Staff Assistant. [facility] will speak directly with Dr. Gong. Pertinent documents to be faxed to Renata Keller at [phone]. Her phone is [phone]. * Emily Pinto RN - 02/26/2014 8:02 AM EST 02/26/2014 TOBACCO TREATMENT NOTE Name: Reggie Pena Date of : 1970 Patient Active Problem List Diagnosis Date Noted ??? Panniculitis 02/23/2014 Past Medical History Diagnosis Date ??? Diabetes mellitus ??? Obesity ??? Panniculitis History reviewed. No pertinent past surgical history. Current Facility-Administered Medications Medication Dose Route Frequency Provider Last Rate Last Dose ??? insulin glargine (LANTUS) VIAL injection 24 Units 24 Units Subcutaneous Nightly Zoie Gong, DO 24 Units at 02/25/142051 ??? vancomycin 2 g in sodium chloride 0.9% 500 mL 2 g Intravenous Q8H Zoie Gong, DO 2,000 mg at 02/26/14 0434 And ??? Vancomycin Level - MAR Order Reminder NOT APPLICABLE Per Pharmacy Zoie Gong, DO ??? Vancomycin Level - MAR Order Reminder NOT APPLICABLE Once Zoie Gong, DO ??? docusate sodium (COLACE) capsule 100 mg 100 mg Oral BID Zoie Gong, DO ??? senna (SENOKOT) tablet 8.6 mg 8.6 mg Oral BID Zoie Gong, DO ??? enoxaparin (LOVENOX) injection 40 mg 40 mg Subcutaneous Q24H [place] Zoie Gong, DO 40 mgat 02/25/14 0854 ??? sodium chloride 0.9 % flush 5 mL 5 mL Intravenous BID Iris Randolph MD 5 mL at 02/25/145 ??? sodium chloride 0.9 % flush 5-20 mL 5-20 mL Intravenous Q1 Min PRN Iris Randolph MD ??? polyethylene glycol (MIRALAX) packet 17 g 17 g Oral Daily PRN Iris Randolph MD ??? bisacodyl (DULCOLAX) EC tablet 10 mg 10 mg Oral BID PRN Iris Randolph MD ??? acetaminophen (TYLENOL) tablet 650 mg 650 mg Oral Q6H PRN Iris Randolph MD 650 mg at 02/25/14 0436 ??? ondansetron (ZOFRAN) tablet 4 mg 4 mg Oral Q8H PRN Iris Randolph MD Or ??? ondansetron (ZOFRAN) injection 4 mg 4 mg Intravenous Q8H PRN Iris Ranodlph MD ??? piperacillin-tazobactam (ZOSYN) 3.375 g in dextrose 5% 50 mL 3.375 g Intravenous Q8H Iris Randolph MD 3.375 g at 02/25/14 2357 ??? morphine 2 mg/mL carpuject 2 mg 2 mg Intravenous Q3H PRN Iris Randolph MD 2 mg at 02/25/14 2101 Or ??? morphine 4 mg/mL carpuject 4 mg 4 mg Intravenous Q3H PRIris Dominguez MD 4 mg at 02/25/14 1650 Or ??? morphine 10 mg/mL carpuject 6 mg 6 mg Intravenous Q3H PRN Iris Randolph MD ??? dextrose 50% injection 25-50 mL 12.5-25 g Intravenous Q1H PRN Iris Randolph MD Or ??? glucagon (human recombinant) injection 1 mg 1 mg Intramuscular Q1H PRN Iris Randolph MD ??? insulin aspart (novoLOG) VIAL injection 2-8 Units 2-8 Units Subcutaneous Q4H [place] Jean-Paul Randolph MD 4 Units at 02/26/14 0434 ??? insulin aspart (novoLOG) VIAL injection 5 Units 5 Units Subcutaneous TID AC Iris Randolph MD 5 Units at 02/25/14 1650 ??? nystatin (MYCOSTATIN) cream Topical BID Iris Randolph MD ??? lisinopril (PRINIVIL;ZESTRIL) tablet 10 mg 10 mg Oral Daily Zoie Gong DO 10 mg at 02/25/14 0900 No Known Allergies History Substance Use Topics ??? Smoking status: Current Every Day Smoker -- 4.00 packs/day for 24 years Types: Cigarettes ??? Smokeless tobacco: Never Used ??? Alcohol Use: No Comment: rare alcohol Family History Problem Relation Age of Onset ??? Coronary Artery Disease Other ??? Diabetes Other Reason for visit: Reggie Pena was referred by Zoie Gong DO for smoking cessation counseling. The following information has been reviewed with patient: Is the patient having cravings or withdrawal symptoms in the hospital: [x ]No Type of tobacco used: [x ] Cigarettes Current amount: 4 ppd Cost per pack: $20.00+a day Age initiated: teen Years smoked: 24+ Most/least smoked: 2-4 ppd Previous quit attempts and methods: one If planning quit date: I quit now Date: 02/26/14 How soon after awakening is your first cigarette smoked? [x ] first 5-10 minutes Caffeine intake: 1-2 cups per day Importance/Confidence Scale (How important is it for him to quit/How confident patient is that he can quit on scale of 0 (Not at all important) - 10 (Most important) important, I am going to have a Grandchild in my home and I do not want to be smoking TREATMENT PLAN/RECOMMENDATIONS: [X ] Discussed & provided [facility] Tobacco Cessation Packet of resources Discussed the 7 FDA approved smoking cessation medication(s) Recommend using the nicotine 21mg patch in combination with the nicotine 4 mg lozenge for intermittent cravings in hospital & to assist with nicotine withdrawal after d/c. Reviewed the evidence-based recommendation by [employer] that using medication & counseling double his success rate at staying quit. I do not need medications. Varenicline was used for one month & I stopped it because of bad dreams Discussed & encouraged [facility] 802 Quits (fill out and fax enrollment form) (which offers free NRT & tobacco cessation coaching) Follow up: Patient not ready to quit at this time. Follow up: A [facility] Tobacco cessation packet was left with pt for future resources. x EncouragedTobacco Treatment medication(s) as recommended above and follow up with either PCP and/or Quit line [id number]. EMILY PINTO, RN, MS, C-TTS Beeper [phone] Time spent counseling [x ] 3-10 minutes * Zoie Gong DO - 02/25/2014 3:52 PM EST Inpatient Hospital Medicine - Progress Note Admit Date: 02/23/2014 Hospital Day 2 days Problem List: Active Hospital Problems Diagnosis ??? Panniculitis Resolved Hospital Problems Diagnosis Date Resolved No resolved problems to display. There are no active non-hospital problems to display for this patient. 24 Hour Events: Pt reportedly new small area drainage from lower abd. Has been seen by surgery and recultured. Subjective: Pt thinks erythema and abd pain slowly improving No cough, f, ch, CP, palp, n/v. Physical Exam: Last Set of Vitals and range of vitals over past 24 hours: Last value Range last 24 hrs Temperature Temp: 36.4 ??C (97.5 ??F) Temp: [36.2 ??C (97.2 ??F)-36.7 ??C (98.1 ??F)] Heart Rate Heart Rate: 67 Heart Rate: [54-77] Blood Pressure BP: 129/58 mmHg BP: (121-139)/(52-75) Respiratory Rate Resp: 20 Resp: [20] SpO2 SpO2: 95 % SpO2: [92 %-95 %] Physical Exam WD morbidly obese WM in NAD hrrr lungd no c/w/r Abd: diffuse erythema ALISON panniculis slighly improved Dressing from abcess I&D left side clean, no new drain Laboratory (Last 24 Hours): Recent Results (from the past 24 hour(s)) POCT GLUCOSE Result Value Range POC Glucose 218 (*) 60 - 199 mg/dL POCT GLUCOSE Result Value Range POC Glucose 211 (*) 60 - 199 mg/dL POCT GLUCOSE Result Value Range POC Glucose 201 (*) 60 - 199 mg/dL POCT GLUCOSE Result Value Range POC Glucose 165 60 - 199 mg/dL BASIC METABOLIC PANEL (NON-FASTING) Result Value Range Glucose Lvl 219 (*) 60 - 199 mg/dL BUN 6 (*) 10 - 20 mg/dL Creatinine 0.57 (*) 0.80 - 1.50 mg/dL Sodium 136 135 - 145 mmol/L Potassium 3.7 3.5 - 5.0 mmol/L Chloride 96 (*) 98 - 107 mmol/L CO2 30 22 - 31 mmol/L Anion Gap 10 5 - 15 mmol/L Calcium 8.5 8.5 - 10.5 mg/dL Estimated GFR >60 >=60 HEMOGRAM Result Value Range WBC 9.4 4.0 - 10.0 x10(3)/mcL RBC 4.37 (*) 4.63 - 6.08 x10(6)/mcL Hemoglobin 12.1 (*) 13.7 - 17.5 gm/dL Hematocrit 37.2 (*) 40.0 - 51.0 % MCV 85.1 79.0 - 92.0 fL MCH 27.7 25.6 - 32.2 pg MCHC 32.5 32.0 - 36.5 gm/dL Platelets 210 145 - 370 x10(3)/mcL RDWSD 44.6 35.0 - 46.0 fL RDWCV 14.3 10.9 - 14.4 % MPV 9.6 9.0 - 12.0 fL VANCOMYCIN, TROUGH Result Value Range Vanc Trough 5.0 DIFFERENTIAL, MANUAL Result Value Range Neutrophil % 65 Band % 3 Lymphocyte % 14 Monocyte % 12 Eosinophil % 4 Basophil % 2 Neutrophil Abs 6.1 1.5 - 6.3 x10(3)/mcL Band Abs 0.3 0.2 - 0.6 x10(3)/mcL Neutr Abs (ANC) 6.40 (*) 1.50 - 6.30 x10(3)/mcL Lymphocyte Abs 1.3 1.0 - 3.6 x10(3)/mcL Monocyte Abs 1.1 (*) 0.2 - 1.0 x10(3)/mcL Eosinophil Abs 0.4 0.0 - 0.5 x10(3)/mcL Basophil Abs 0.2 0.0 - 0.2 x10(3)/mcL nRBC % [address] 100 Plat Estimate Normal RBC Morphology Abnormal Polychromasia Present Ashlee Cells 1-5 nRBC Abs 0.190 (*) 0.000 - 0.012 x10(3)/mcL POCT GLUCOSE Result Value Range POC Glucose 194 60 - 199 mg/dL WOUND CULTURE Result Value Range Wound Aspirate/Abscess Culture Value: Patient Name: REGGIE PENA Ordered By: ZOIE GONG MR#: [id number] LOC: 3EST /Sex: 1970 (43 years), Male PROCEDURE: Wound Aspirate/Abscess Culture SOURCE: Abscess COLLECTED: 02/25/2014 08:53 BODY SITE: Abdomen STARTED: 02/25/2014 09:33 STAINS / PREPARATIONS Gram Stain Report Verified:02/25/2014 14:38 Moderate White Blood Cells seen Rare Gram Positive Cocci seen POCT GLUCOSE Result Value Range POC Glucose 202 (*) 60 - 199 mg/dL Microbiology: [facility] - they state blood and wound culture neg to date Assessment: 43 year old male smoker with obesity, DM type 2, and history of recurrent RLE cellulitis infectionspresenting from [facility] with abdominal wall cellulitis/ panniculitis and abscess that was improving slighlty but transferred to [facility] for surgical evaluation with anesthesia back-up . Surgery consulted onarrival and with Morphine IV administration alone, the lateral draining site was able to be probed 7cm laterally with further drainage obtained and the medial site of fluctulance I&D'd with some expression of fluid and subsequently packed. Area of cellulitis demarcated. Plan: # Panniculitis with abcess - s/p bedside I&D 02/23/14 with surgery - on [place] - call to [facility] - blood culture neg to date, wound culture scant cutan luiz - wound recultured today by surgery - wound consult requested - continue nystatin cream to pannus - IV Morphine prn #Type II DM - uncontrolled - Hold glipizide - increase lantus 20u to 24 units daily with 5u prandial insulin with ISS - adjust as needed -check hgba1c #HTN - controlled -cont lisinopril #Morbid Obesity -will encourage outpatient weight loss -forder operator consult #Chronic tob user - smoking cessation counseling provided # DVT Prophylaxis: sq lovenox Pneumovax and Influenza Immunizations given as needed. Discussed Advanced Directives and Code Status. The patient wishes to be Full Code. IPI Certification I certify that I am a [facility] credentialed attending provider with admitting privileges and that the patient meets or has met medical necessity to require an inpatient IPI level of care meeting a minimumof two midnights or is on the [facility] inpatient only procedure list (status C) due to severe cellulitisrequiring IV antibiotics and surgical Intervention ZOIE GONG DO 02/25/2014 * Janamarilee Sheila B - 02/25/2014 9:42 AM EST General Surgery Progress Note ID: 43yo smoker with obesity, DM type 2, and history of recurrent RLE cellulitis infections presenting from OSH with abdominal wall cellulitis and abscess now s/p bedside I&D. 24H/S: no acute events overnight. O: Last value Range last 24 hrs Temperature Temp: 36.6 ??C (97.9 ??F) Temp: [36.2 ??C (97.2 ??F)-36.7 ??C (98.1 ??F)] Heart Rate Heart Rate: 55 Heart Rate: [54-81] Blood Pressure BP: 139/66 mmHg BP: (118-139)/(52-75) Respiratory Rate Resp: 20 Resp: [20] SpO2 SpO2: 95 % SpO2: [92 %-95 %] RA Physical Exam: Gen: NAD, alert and oriented CV: regular rate Pulm: Breathing comfortably on RA Abd: obese, blanching erythema starting approximately 10cm below the umbilicus and extending acrossthe lower abdomen -- appears to be same distribution as line of previous demarcation, less bright. In crease of pannus to left of midline is small 2cm incision that is packed, packing removed, cont to drain purulent material nicely. Minimal surrounding erythema in this region. Repacked. Labs: WBC 9.4 Vanc trough only 5 Assessment: 43yo man as described above, appears to be improving on abx and following drainage of small abscess. No indication for more aggressive surgery at this time. Cont local wound care - changepacking BID and prn. Cont abx. Re- cultured this morning. Recommendations: Cont local wound care - change packing BID and prn. Cont abx, adjust vanc dose, follow cultures. * Lucy Rios RN - 02/25/2014 7:36 AM EST Pt stated that he will not allow for anyone to remove/apply packing without local anesthetic. Serous drainage continued to drain from wounds this shift, and it was reinforced again with 4x4 guaze andABD pads. Pt c/o a headache this shift and requested PRN Tylenol for it. It was administered per MAR with good effect. * Zoie Gong DO - 02/24/2014 3:55 PM EST Inpatient Hospital Medicine - Progress Note Admit Date: 02/23/2014 Hospital Day 1 day Problem List: Active Hospital Problems Diagnosis ??? Panniculitis Resolved Hospital Problems Diagnosis Date Resolved No resolved problems to display. There are no active non-hospital problems to display for this patient. 24 Hour Events: Pt admitted yesterday as transfer from [facility] for panniculitis. Seen by surgery and had bedside I&D. Notified by nurses this morning that pt wanted to go back to [facility]. Subjective: Pt states erythema and abd pain improved since yesterday. No cough, f, ch, CP, palp, n/v. Pain meds help. Originally wanted to go back to other hosp since no major procedure. Agrees to stay to monitor and make sure nothing further needed and improving On abx. Physical Exam: Last Set of Vitals and range of vitals over past 24 hours: Last value Range last 24 hrs Temperature Temp: 36.6 ??C (97.9 ??F) Temp: [36.6 ??C (97.9 ??F)-37.6 ??C (99.7 ??F)] Heart Rate Heart Rate: 81 Heart Rate: [81-89] Blood Pressure BP: 118/54 mmHg BP: (114-147)/(52-62) Respiratory Rate Resp: 20 Resp: [20] SpO2 SpO2: 94 % SpO2: [90 %-94 %] Physical Exam WD morbidly obese WM in NAD O to PPT Answers questions approp, demon insight HRRR Lungs decreased bs, no c/w/r Abd: obese, + bs, snt Lower 1/3 abd with signif difuse alison erythema Packing noted LLQ Moves all ext Laboratory (Last 24 Hours): Recent Results (from the past 24 hour(s)) ABO/RH TYPING Result Value Range ABORh Type A Pos ANTIBODY SCREEN Result Value Range Ab Screen Interp Negative Specimen OD [id number] VANCOMYCIN, TROUGH Result Value Range Vanc Trough 2.8 BASIC METABOLIC PANEL (NON-FASTING) Result Value Range Glucose Lvl 123 60 - 199 mg/dL BUN 8 (*) 10 - 20 mg/dL Creatinine 0.60 (*) 0.80 - 1.50 mg/dL Sodium 139 135 - 145 mmol/L Potassium 3.7 3.5 - 5.0 mmol/L Chloride 96 (*) 98 - 107 mmol/L CO2 28 22 - 31 mmol/L Anion Gap 15 5 - 15 mmol/L Calcium 8.4 (*) 8.5 - 10.5 mg/dL Estimated GFR >60 >=60 HEMOGRAM Result Value Range WBC 11.4 (*) 4.0 - 10.0 x10(3)/mcL RBC 4.28 (*) 4.63 - 6.08 x10(6)/mcL Hemoglobin 12.4 (*) 13.7 - 17.5 gm/dL Hematocrit 36.6 (*) 40.0 - 51.0 % MCV 85.5 79.0 - 92.0 fL MCH 29.0 25.6 - 32.2 pg MCHC 33.9 32.0 - 36.5 gm/dL Platelets 195 145 - 370 x10(3)/mcL RDWSD 44.3 35.0 - 46.0 fL RDWCV 14.3 10.9 - 14.4 % MPV 10.4 9.0 - 12.0 fL DIFFERENTIAL, AUTOMATED Result Value Range Neutrophils % 75.3 Neutr Abs (ANC) 8.56 (*) 1.50 - 6.30 x10(3)/mcL Lymphocytes % 12.8 Lymphocytes Abs 1.4 1.0 - 3.6 x10(3)/mcL Monocytes % 9.2 Monocyte Abs 1.0 0.2 - 1.0 x10(3)/mcL Eosinophils % 1.2 Eosinophils Abs 0.1 0.0 - 0.5 x10(3)/mcL Basophils % 0.2 Basophils Abs 0.0 0.0 - 0.2 x10(3)/mcL Immature Gran % 1.30 Reyna Gran Abs 0.15 (*) 0.00 - 0.05 x10(3)/mcL POCT GLUCOSE Result Value Range POC Glucose 122 60 - 199 mg/dL BODY FLUID CULTURE Result Value Range Body Fluid Culture Value: Patient Name: REGGIE PENA Ordered By: JA DC MR#: [id number] LOC: 3EST /Sex: 1970 (43 years), Male PROCEDURE: Body Fluid Culture SOURCE: Other COLLECTED: 02/23/2014 22:37 FREE TEXT SOURCE: Abdominal abscess STARTED: 02/23/2014 22:47 STAINS / PREPARATIONS Gram Stain Report Verified:02/23/2014 23:07 Few White Blood Cells seen No microorganisms seen. PRELIMINARY REPORT Preliminary Report Verified:02/24/2014 13:10 No growth to date. POCT GLUCOSE Result Value Range POC Glucose 193 60 - 199 mg/dL BASIC METABOLIC PANEL (NON-FASTING) Result Value Range Glucose Lvl 183 60 - 199 mg/dL BUN 6 (*) 10 - 20 mg/dL Creatinine 0.52 (*) 0.80 - 1.50 mg/dL Sodium 138 135 - 145 mmol/L Potassium 3.7 3.5 - 5.0 mmol/L Chloride 95 (*) 98 - 107 mmol/L CO2 28 22 - 31 mmol/L Anion Gap 15 5 - 15 mmol/L Calcium 8.1 (*) 8.5 - 10.5 mg/dL Estimated GFR >60 >=60 PROTHROMBIN TIME Result Value Range PT 15.2 12.5 - 15.5 sec INR 1.1 0.9 - 1.1 APTT Result Value Range PTT 34 25 - 35 sec HEMOGRAM Result Value Range WBC 10.0 4.0 - 10.0 x10(3)/mcL RBC 4.29 (*) 4.63 - 6.08 x10(6)/mcL Hemoglobin 12.1 (*) 13.7 - 17.5 gm/dL Hematocrit 36.6 (*) 40.0 - 51.0 % MCV 85.3 79.0 - 92.0 fL MCH 28.2 25.6 - 32.2 pg MCHC 33.1 32.0 - 36.5 gm/dL Platelets 199 145 - 370 x10(3)/mcL RDWSD 44.7 35.0 - 46.0 fL RDWCV 14.4 10.9 - 14.4 % MPV 10.0 9.0 - 12.0 fL DIFFERENTIAL, AUTOMATED Result Value Range Neutrophils % 75.0 Neutr Abs (ANC) 7.48 (*) 1.50 - 6.30 x10(3)/mcL Lymphocytes % 10.8 Lymphocytes Abs 1.1 1.0 - 3.6 x10(3)/mcL Monocytes % 10.8 Monocyte Abs 1.1 (*) 0.2 - 1.0 x10(3)/mcL Eosinophils % 1.3 Eosinophils Abs 0.1 0.0 - 0.5 x10(3)/mcL Basophils % 0.4 Basophils Abs 0.0 0.0 - 0.2 x10(3)/mcL Immature Gran % 1.70 Reyna Gran Abs 0.17 (*) 0.00 - 0.05 x10(3)/mcL NUCLEATED RED BLOOD CELLS Result Value Range nRBC % Auto 0.0 nRBC Abs Auto 0.000 0.000 - 0.012 x10(3)/mcL POCT GLUCOSE Result Value Range POC Glucose 178 60 - 199 mg/dL POCT GLUCOSE Result Value Range POC Glucose 179 60 - 199 mg/dL Microbiology: Blood Culture: phoined [facility] today - they state blood and wound culture neg to date Assessment: 43 year old male smoker with obesity, DM type 2, and history of recurrent RLE cellulitis infectionspresenting from [facility] with abdominal wall cellulitis/ panniculitis and abscess that was improving slighlty but transferred to [place] for surgical evaluation with anesthesia back-up . Surgery consulted onarrival and with Morphine IV administration alone, the lateral draining site was able to be probed 7cm laterally with further drainage obtained and the medial site of fluctulance I&D'd with some expression of fluid and subsequently packed. Area of cellulitis demarcated. Plan: # Panniculitis with abcess - Appreciate surgical assistance - s/p bedside I&D 02/23/14 - on Kevin Batista - call to [facility] - blood and wound culture neg to date - apparantly wound culture done here on admission need to be recollected Per staff, surgery aware - monitor erythema - wound consult - continue nystatin cream to pannus - IV Morphine prn #Type II DM - Hold glipizide - Lantus 20u daily with 5u prandial insulin with ISS - adjust as needed #HTN - controlled -cont lisinopril #Morbid Obesity -will encourage outpatient weight loss -forder operator consult #Chronic tob user - smoking cessation counseling provided # DVT Prophylaxis: sq lovenox Pneumovax and Influenza Immunizations given as needed. Discussed Advanced Directives and Code Status. The patient wishes to be Full Code. IPI Certification I certify that I am a D-H credentialed attending provider with admitting privileges and that the patient meets or has met medical necessity to require an inpatient IPI level of care meeting a minimumof two midnights or is on the [facility] inpatient only procedure list (status C) due to severe cellulitisrequiring IV antibiotics and surgical Intervention ZOIE GONG DO 02/24/2014 * Sheila Leslie Lalo - 02/24/2014 9:33 AM EST General Surgery Progress Note ID: 43yo smoker with obesity, DM type 2, and history of recurrent RLE cellulitis infections presenting from OSH with abdominal wall cellulitis and abscess now s/p bedside I&D. 24H/S: no acute events overnight; no complaints this morning. Would like to be transferred back to [place]. O: Last value Range last 24 hrs Temperature Temp: 36.7 ??C (98.1 ??F) Temp: [36.7 ??C (98.1 ??F)-37.6 ??C (99.7 ??F)] Heart Rate Heart Rate: 84 Heart Rate: [83-89] Blood Pressure BP: 114/52 mmHg BP: (114-147)/(52-62) Respiratory Rate Resp: 20 Resp: [20] SpO2 SpO2: 90 % SpO2: [90 %-94 %] Physical Exam: Gen: NAD, alert and oriented CV: regular rate Pulm: Breathing comfortably on RA Abd: obese, blanching erythema starting approximately 10cm below the umbilicus and extending acrossthe lower abdomen -- appears to be same distribution as line of previous demarcation, perhaps less bright. In crease of pannus to left of midline is small 2cm incision that is packed, packing removed, cont to drain purulent material nicely. Minimal surrounding erythema in this region. Repacked. Labs: WBC 10 Assessment: 43yo man as described above, appears to be improving on abx and following drainage of small abscess. No indication for more aggressive surgery at this time. Cont local wound care - changepacking BID and prn. Cont abx. Recommendations: Cont local wound care - change packing BID and prn. Cont abx. documented in this encounter H&P Notes * Jessica Núñez RN - 02/26/2014 11:10 AM EST Office of Care Management (OCM) / Clinical Property Management Intern (CRC) Initial Assessment Has the appropriate physician signed the order to admit? Yes Screening Patient status discussed with multidisciplinary team members and electronic medical record reviewed. ?? Does patient have Medicare? No ?? Is patient equal to or greater than 70 years old with private insurance? No ?? Does patient have insurance? No ?? Does patient have prescription coverage? No ?? Patient is an ACO patient? No ?? Does patient have potential discharge needs based on admitting diagnosis and/or acuity of co-morbidities? Yes ?? Has patient been admitted within the past 30 days? No ?? Has the physician, patient and/or veterans contact representative or other multidisciplinary meat team lead requested a care management consult? No (If patient does not need further evaluation based on screening then .cmcrcrecordreview) Reason for Hospitalization: Introduced and reviewed [id number] smoker with obesity, DM type 2, and history of recurrent RLE cellulitis infections presenting from OSH with abdominal wall cellulitis and abscess now s/p bedside I&DCRC role with patient and/or veterans contact representative. Family/Social support: DaughterJes [phone] and her spouse Baseline Functional/Cognitive/Mobility Status: (is it feasible for patient to return to previous environment with the same and/or additional resources and supports?) Yes Current Functional Status: Resting in bed Current Home/Community Services/Equipment: NA PCP/Health Care Maintenance: VALERIE BILLINGS MD [phone] Advanced Directives: has NO advanced directive - not interested in additional information Insurance Coverage: True Self Pay Medication Coverage:N/A Pharmacy: No preferred pharmacy on file Financial Concerns: To be determined [employer] Referral: No Transportation at Discharge: EMS transportation Anticipated Continued Care Needs: Pateint requests transfer to [facility] for continued treatment, CRC is arranging S transportation Plan (If plan is unknown delete the following section and utilize smart phrase [.cmplan] when information becomes available) Based on discussion with patient and/or veterans contact representative, physician and other multidisciplinary team members the following information has been gathered: Jessica Núñez RN CRC, Pager [phone] * Iris Randolph MD - 02/23/2014 7:42 PM EST Inpatient Hospital Medicine - Admission Note Problem List: Active Hospital Problems Diagnosis ??? Panniculitis Resolved Hospital Problems Diagnosis Date Resolved No resolved problems to display. There are no active non-hospital problems to display for this patient. ID: 43 y.o. Male presents to [place] for surgical evaluation of abscess in the setting of panniculitis History of Present Illness: HPI 43yo M morbid obesity, DM2, recurrent cellulitis/ panniculitis presents to [place] for surgical evaluation of abscess management in the setting of panniculiits. Patient presented to [facility] on 02/20/14 for fevers and malaise in the week prior to this arrival that then accompanied left lower abdominal pain similar to prior panniculitis episodes. In their ED he was noted to have panniculitis with spreading cellulitis and admitted for IV Zosyn and Vancomycin. At some point an attempt to probe a port of entry was done without any pain medications and he stopped this attempt due to severe pain. No further attempts were made and he was transferred to [place] for further surgical evalua tion given the lack of anesthesia back up there at [facility]. Additionally Lisinopril 10mg was started for HTN and his glipizide increased to 7.5mg BID. Review of Systems: Review of Systems Constitutional: Positive for fever and fatigue. Negative for chills. HENT: Negative for sore throat and trouble swallowing. Eyes: Negative for discharge and visual disturbance. Respiratory: Negative for cough, chest tightness and shortness of breath. Cardiovascular: Negative for chest pain and leg swelling. Gastrointestinal: Positive for abdominal pain. Negative for nausea, vomiting, diarrhea and constipation. Endocrine: Negative for cold intolerance and heat intolerance. Genitourinary: Negative for dysuria and flank pain. Musculoskeletal: Negative for back pain and joint swelling. Skin: Positive for rash and wound. Neurological: Negative for dizziness and light-headedness. Psychiatric/Behavioral: Negative for confusion and agitation. Past Medical and Surgical History: Past Medical History Diagnosis Date ??? Diabetes mellitus ??? Obesity ??? Panniculitis History reviewed. No pertinent past surgical history. Prior To Admission Medications: Prescriptions prior to admission Medication Sig Dispense Refill ??? glipiZIDE (GLUCOTROL) 5 mg Tablet Take 5 mg by mouth 2 times daily (before meals). Allergies: No Known Allergies Family History: Family History Problem Relation Age of Onset ??? Coronary Artery Disease Other ??? Diabetes Other Social History and Habits: History Social History ??? Marital Status: Spouse Name: N/A Number of Children: N/A ??? Years of Education: N/A Occupational History ??? Not on file. Social History Main Topics ??? Smoking status: Current Every Day Smoker -- 2.00 packs/day for 24 years ??? Smokeless tobacco: Not on file ??? Alcohol Use: Not on file Comment: rare alcohol ??? Drug Use: No ??? Sexual Activity: Not on file Other Topics Concern ??? Not on file Social History Narrative Immunizations: There is no immunization history on file for this patient. Physical Exam: Last Set of Vitals and range of vitals over past 24 hours: Last value Range last 24 hrs Temperature Temp: 37.6 ??C (99.7 ??F) Temp: [36.9 ??C (98.4 ??F)-37.6 ??C (99.7 ??F)] Heart Rate Heart Rate: 89 Heart Rate: [88-89] Blood Pressure BP: 114/59 mmHg BP: (114-147)/(59-62) Respiratory Rate Resp: 20 Resp: [20] SpO2 SpO2: 94 % SpO2: [94 %] Physical Exam Constitutional: He is oriented to person, place, and time. He appears well- developed and well-nourished. No distress. Morbidly obese HENT: Head: Normocephalic and atraumatic. Right Ear: External ear normal. Mouth/Throat: Oropharynx is clear and moist. Eyes: Conjunctivae are normal. Pupils are equal, round, and reactive to light. Right eye exhibits no discharge. Left eye exhibits no discharge. No scleral icterus. Neck: Normal range of motion. Neck supple. Cardiovascular: Normal rate, regular rhythm, normal heart sounds and intact distal pulses. Pulmonary/Chest: Effort normal. No respiratory distress. He has no wheezes. He has no rales. Abdominal: Soft. Bowel sounds are normal. He exhibits no distension. There is tenderness (LLQ underpannus). There is no rebound and no guarding. Musculoskeletal: Normal range of motion. He exhibits no edema. Neurological: He is alert and oriented to person, place, and time. No cranial nerve deficit. Skin: Skin is warm and dry. Rash (Erythema ~10cm below the umbilicus & extending across the lower abd; in the pannus crease left of midline a small 5mm opening is present draining purulent material, More medially a 2x1 area with fluctuance and tenderness is present) noted. He is not diaphoretic. Psychiatric: He has a normal mood and affect. His behavior is normal. Judgment and thought content normal. Laboratory (Last 24 Hours): Recent Results (from the past 24 hour(s)) ABO/RH TYPING Result Value Range ABORh Type A Pos ANTIBODY SCREEN Result Value Range Ab Screen Interp Negative Specimen OD [id number] VANCOMYCIN, TROUGH Result Value Range Vanc Trough 2.8 BASIC METABOLIC PANEL (NON-FASTING) Result Value Range Glucose Lvl 123 60 - 199 mg/dL BUN 8 (*) 10 - 20 mg/dL Creatinine 0.60 (*) 0.80 - 1.50 mg/dL Sodium 139 135 - 145 mmol/L Potassium 3.7 3.5 - 5.0 mmol/L Chloride 96 (*) 98 - 107 mmol/L CO2 28 22 - 31 mmol/L Anion Gap 15 5 - 15 mmol/L Calcium 8.4 (*) 8.5 - 10.5 mg/dL Estimated GFR >60 >=60 HEMOGRAM Result Value Range WBC 11.4 (*) 4.0 - 10.0 x10(3)/mcL RBC 4.28 (*) 4.63 - 6.08 x10(6)/mcL Hemoglobin 12.4 (*) 13.7 - 17.5 gm/dL Hematocrit 36.6 (*) 40.0 - 51.0 % MCV 85.5 79.0 - 92.0 fL MCH 29.0 25.6 - 32.2 pg MCHC 33.9 32.0 - 36.5 gm/dL Platelets 195 145 - 370 x10(3)/mcL RDWSD 44.3 35.0 - 46.0 fL RDWCV 14.3 10.9 - 14.4 % MPV 10.4 9.0 - 12.0 fL DIFFERENTIAL, AUTOMATED Result Value Range Neutrophils % 75.3 Neutr Abs (ANC) 8.56 (*) 1.50 - 6.30 x10(3)/mcL Lymphocytes % 12.8 Lymphocytes Abs 1.4 1.0 - 3.6 x10(3)/mcL Monocytes % 9.2 Monocyte Abs 1.0 0.2 - 1.0 x10(3)/mcL Eosinophils % 1.2 Eosinophils Abs 0.1 0.0 - 0.5 x10(3)/mcL Basophils % 0.2 Basophils Abs 0.0 0.0 - 0.2 x10(3)/mcL Immature Gran % 1.30 Reyna Gran Abs 0.15 (*) 0.00 - 0.05 x10(3)/mcL POCT GLUCOSE Result Value Range POC Glucose 122 60 - 199 mg/dL BODY FLUID CULTURE Result Value Range Body Fluid Culture Value: Patient Name: REGGIE PENA Ordered By: JA DC MR#: [id number] LOC: 3EST /Sex: 1970 (43 years), Male PROCEDURE: Body Fluid Culture SOURCE: Other COLLECTED: 02/23/2014 22:37 FREE TEXT SOURCE: Abdominal abscess STARTED: 02/23/2014 22:47 STAINS / PREPARATIONS Gram Stain Report Verified:02/23/2014 23:07 Few White Blood Cells seen No microorganisms seen. [facility] labs WBC on 02/20 18.3, 11.1 on 02/[address]: scan of abd/pelvis w/o contrast on 02/20/14 1. Splenomegaly 2. Mild ateriosclerosis 3. No active disease in lucia abd/pelvis 4. Free air w/ inflammation in the SC adipose tissue at the left inguinal area BCx from 02/20 NGTD as of 02/23 AM CXR 02/20 (at [facility], personally reviewed by me) unremarkable Assessment: 43 year old male smoker with obesity, DM type 2, and history of recurrent RLE cellulitis infectionspresenting from [facility] with abdominal wall cellulitis/ panniculitis and abscess that was improving slighlty but transferred to [place] for surgical evaluation with anesthesia back-up . Surgery consulted this evening and with Morphine IV administration alone, the lateral draining site was able to be probed 7cm laterally with further drainage obtained and the medial site of fluctulance I&D'd with some expression of fluid and subsequently packed. Area of cellulitis demarcated. Plan: - Appreciate surgical assistance - continue Vanc, Zosyn - f/u on H BCx, our wound culture - monitor erythema - wound consult - continue nystatin cream to pannus - IV Morphine prn - Hold glipizide while here, will give Lantus 20u tonight with 5u prandial insulin with ISS (likelyunderdosing and will require further titration) - continue lisinopril 10 - smoking cessation counseling provided, will provide cessation material and support - DVT Prophylaxis: resume Enoxaparin if no need for further immediate surgical intervention Pneumovax and Influenza Immunizations given as needed. Discussed Advanced Directives and Code Status. The patient wishes to be Full Code. A copy of this document will be sent to the patient's Primary Care Physician and/or Referring Physician. IPI Certification I certify that I am a D-H credentialed attending provider with admitting privileges and that the patient meets or has met medical necessity to require an inpatient IPI level of care meeting a minimumof two midnights or is on the [facility] inpatient only procedure list (status C) due to severe cellulitisrequiring IV antibiotics and surgical I&D. IRIS RANDOLPH MD 02/23/2014 documented in this encounter Miscellaneous Notes * Plan of Care - Lucy Rios RN - 02/26/2014 5:54 AM EST Problem: General Plan of Care Goal: Plan of Care Review Outcome: Ongoing (Interventions Implemented as Appropriate) 02/25/14 1520 02/25/142042 Plan of Care Review Plan of Care Outcome Status ongoing (interventions implemented as appropriate) -- Progress progress toward functional goals as expected -- Coping/Psychosocial Response Interventions Plan of Care Reviewed with -- patient .. OUTCOME EVALUATION NOTE: OUTCOME SUMMARY: Pt states that he wants to go back to [facility] to be closer to home. Dressing and packingchanged this shift, and pt was premedicated with IV Morphine. IV antibiotics infusing overnight perMAR. PLAN MOVING FORWARD: Continue IV antibiotics. Monitor glucose levels and administer Insulin per MAR. INDIVIDUALIZED FALL PREVENTION: Assistance: Independent Supervision: Hourly rounding Surveillance: Pt pardeep Fleming CPG OUTCOME EVALUATION: Goal: Individualization and Mutuality Outcome: Ongoing (Interventions Implemented as Appropriate) 02/23/142029 Mutuality/Individual Preferences What anxieties, fears or concerns do you have about your health or care? i don't get nervous What questions do you have about your health or care? when is my food coming What information would help us give you more personalized care? none Goal: Fall Prevention-Safe Patient Handling Outcome: Ongoing (Interventions Implemented as Appropriate) 02/25/14 204 Najera Fall Risk History of Falling 0 Secondary Diagnosis 15 Ambulatory Aids 0 Intravenous Therapy/Heparin/Saline Lock 20 Gait/Transferring 0 Mental Status 0 Score 35 OTHER Najera Fall Risk Medium (25-44) Safety Interventions Safety Precautions/Fall Reduction fall reduction program maintained;lighting adjusted for task/safety;nonskid shoes/slippers when out of bed Musculoskeletal Interventions Activity/Level of Assistance up in room;independently Positioning independent Muscle Strengthening activity/mobility promoted Self-Care Promotion independence encouraged while providing assistance Goal: Infection Control Outcome: Ongoing (Interventions Implemented as Appropriate) 02/25/14 204 Safety Interventions Isolation Precautions standard precautions maintained Infection Prevention blood glucose management;rest/sleep promoted Coping/Psychosocial Response Interventions Counseling emotional support provided Goal: Discharge Needs Assessment Outcome: Ongoing (Interventions Implemented as Appropriate) 02/24/14 0543 02/25/14 1520 Discharge Needs Assessment Concerns to be Addressed denies needs/concerns at this time -- Readmission Within the Last 30 Days -- no previous admission in last 30 days Equipment Needed After Discharge none -- Current Health Anticipated Changes Related to Illness none -- Self-Care Equipment Currently Used at Home none -- Living Environment Transportation Available car -- Problem: Fall/Trauma/Injury Risk (Adult, Obstetrics) Goal: Identify Signs and Symptoms and Related Risk Factors Signs and symptoms and related risk factors are identified upon initiation of Human Response Clinical Practice Guideline (CPG) Outcome: Ongoing (Interventions Implemented as Appropriate) 02/24/14 0543 02/25/14 1520 Fall/Trauma/Injury Risk Personal Related Risk Factors (Fall/Trauma/Injury Risk) gait/mobility problems/weakness -- Treatment Related Related Risk Factors (Fall/Trauma/Injury Risk) medication -- Signs and Symptoms (Fall/Trauma/Injury Risk) -- presence of risk factors Goal: Absence of Trauma/Injury/Falls Patient will demonstrate the desired outcomes. Outcome: Ongoing (Interventions Implemented as Appropriate) 02/26/14 0522 Fall/Trauma/Injury Risk (Adult, Obstetrics) Absence of Trauma/Injury/Falls making progress toward outcome Problem: Skin Integrity Impairment, Risk/Actual (Adult, Obstetrics) Goal: Identify Signs and Symptoms and Related Risk Factors Signs and symptoms and related risk factors are identified upon initiation of Human Response Clinical Practice Guideline (CPG) Outcome: Ongoing (Interventions Implemented as Appropriate) 02/25/14 1520 Skin Integrity Impairment, Risk/Actual Physiological Related Risk Factors (Skin Integrity Impairment, Risk/Actual) edema;infection;metabolic/endocrine imbalance Signs and Symptoms (Skin Integrity Impairment, Risk/Actual) edema;erythema nonblanchable;exudate (purulent);inflammation;undermining Pt repositions independently in the bed, and call for assistance when getting OOB. Goal: Skin Integrity/Wound Healing Patient will demonstrate the desired outcomes. Outcome: Ongoing (Interventions Implemented as Appropriate) 02/24/14 0543 Skin Integrity Impairment, Risk/Actual (Adult, Obstetrics) Skin Integrity/Wound Healing making progress toward outcome * Plan of Care - Elizabet Wu RN - 02/25/2014 3:32 PM EST Problem: General Plan of Care Goal: Plan of Care Review Outcome: Ongoing (Interventions Implemented as Appropriate) 02/25/14 1000 02/25/14 1520 Plan of Care Review Plan of Care Outcome Status -- ongoing (interventions implemented as appropriate) Progress -- progress toward functional goals as expected Coping/Psychosocial Response Interventions Plan of Care Reviewed with patient -- OUTCOME EVALUATION NOTE: OUTCOME SUMMARY: Patient AOx4, c/o 5/10 diffuse pain throughout abdominal area. Patient's abdomen erythematous and warm, however, erythema has not progressed outside line of demarcation. Patient was medicated with 4mg prn morphine prior to wound dressing change. Patient allowed this securities underwriter to remove tunnel packing and reinsert new iodoform. Gauze under pannus to wick away large amounts of serosanguinous drainage,abd pads applied over top and medipore tape used to cover abd pads. Area cleansed with wound cleanser. Patient tolerated wound dressing change fairly well. Patient turns self independently in the bedand is up in room independently. SSI administered per orders (see MAR). IV vanc increased to 2g, IVzosyn infusing without issue. Wound care consult placed per MD to follow patient's panniculitis. Patient declines Masimo. Hygiene care performed per patient this morning. Call light is in reach, willcontinue to monitor, endorse comfort, and report any acute changes as necessary. PLAN MOVING FORWARD: -IV abx, transition to PO -Encourage ambulation -Pain control -Wound care INDIVIDUALIZED FALL PREVENTION: Assistance: Independent/SBA (if pt requests) Supervision: Independent Surveillance: Hourly rounding, call light in reach, room near nurse's station, declines Masimo CPG OUTCOME EVALUATION: Goal: Individualization and Mutuality Outcome: Ongoing (Interventions Implemented as Appropriate) 02/23/14 2030 Mutuality/Individual Preferences What anxieties, fears or concerns do you have about your health or care? i don't get nervous What questions do you have about your health or care? when is my food coming What information would help us give you more personalized care? none Goal: Fall Prevention-Safe Patient Handling Outcome: Ongoing (Interventions Implemented as Appropriate) Goal: Infection Control Outcome: Ongoing (Interventions Implemented as Appropriate) 02/25/14 1000 Safety Interventions Isolation Precautions standard precautions maintained Infection Prevention blood glucose management;bronchial hygiene promoted;environmental surveillance;nutrition promoted;hydration promoted;promote handwashing;rest/sleep promoted Coping/Psychosocial Response Interventions Counseling calming techniques promoted;emotional support provided;reassurance provided;relaxation techniques promoted Goal: Discharge Needs Assessment Outcome: Ongoing (Interventions Implemented as Appropriate) 02/24/14 0543 02/25/14 1520 Discharge Needs Assessment Concerns to be Addressed denies needs/concerns at this time -- Readmission Within the Last 30 Days -- no previous admission in last 30 days Equipment Needed After Discharge none -- Current Health Anticipated Changes Related to Illness none -- Self-Care Equipment Currently Used at Home none -- Living Environment Transportation Available car -- Problem: Fall/Trauma/Injury Risk (Adult, Obstetrics) Goal: Identify Signs and Symptoms and Related Risk Factors Signs and symptoms and related risk factors are identified upon initiation of Human Response Clinical Practice Guideline (CPG) Outcome: Ongoing (Interventions Implemented as Appropriate) 02/24/1443 02/25/14 1520 Fall/Trauma/Injury Risk Personal Related Risk Factors (Fall/Trauma/Injury Risk) gait/mobility problems/weakness -- Treatment Related Related Risk Factors (Fall/Trauma/Injury Risk) medication -- Signs and Symptoms (Fall/Trauma/Injury Risk) -- presence of risk factors Goal: Absence of Trauma/Injury/Falls Patient will demonstrate the desired outcomes. Outcome: Ongoing (Interventions Implemented as Appropriate) 02/24/14 0543 Fall/Trauma/Injury Risk (Adult, Obstetrics) Absence of Trauma/Injury/Falls making progress toward outcome Problem: Skin Integrity Impairment, Risk/Actual (Adult, Obstetrics) Goal: Identify Signs and Symptoms and Related Risk Factors Signs and symptoms and related risk factors are identified upon initiation of Human Response Clinical Practice Guideline (CPG) Outcome: Ongoing (Interventions Implemented as Appropriate) 02/25/14 1520 Skin Integrity Impairment, Risk/Actual Physiological Related Risk Factors (Skin Integrity Impairment, Risk/Actual) edema;infection;metabolic/endocrine imbalance Signs and Symptoms (Skin Integrity Impairment, Risk/Actual) edema;erythema nonblanchable;exudate (purulent);inflammation;undermining Goal: Skin Integrity/Wound Healing Patient will demonstrate the desired outcomes. Outcome: Ongoing (Interventions Implemented as Appropriate) 02/24/14542 Skin Integrity Impairment, Risk/Actual (Adult, Obstetrics) Skin Integrity/Wound Healing making progress toward outcome * Plan of Care - Lucy Rios RN - 02/25/2014 2:01 AM EST Problem: General Plan of Care Goal: Plan of Care Review Outcome: Ongoing (Interventions Implemented as Appropriate) 02/24/142005 Coping/Psychosocial Response Interventions Plan of Care Reviewed with patient .. OUTCOME EVALUATION NOTE: OUTCOME SUMMARY: Pt's abdominal dressing was saturated upon the beginning of the shift. This securities underwriter administered PRNIV Morphine prior to changing the dressing, but the pt refused to allow the packing to be advanced any further. New area of drainage noted inferior to the incision made yesterday. Medicine MD notified. 4x4 dressings and ABD applied per this securities underwriter. IV antibiotics and Insulin administered per APR. Pt up to restroom to void with no apparent problems. VSS. PLAN MOVING FORWARD: Continue IV antibiotics, and monitor abdominal erythema and incision. INDIVIDUALIZED FALL PREVENTION: Assistance: Standby with ambulation, independent in the bed. Supervision: Hourly rounding per protocol. Surveillance: Pt declines Masimo CPG OUTCOME EVALUATION: Goal: Individualization and Mutuality Outcome: Ongoing (Interventions Implemented as Appropriate) 02/23/142029 Mutuality/Individual Preferences What anxieties, fears or concerns do you have about your health or care? i don't get nervous What questions do you have about your health or care? when is my food coming What information would help us give you more personalized care? none Goal: Fall Prevention-Safe Patient Handling Outcome: Ongoing (Interventions Implemented as Appropriate) 02/24/142005 Najera Fall Risk History of Falling 0 Secondary Diagnosis 15 Ambulatory Aids 0 Intravenous Therapy/Heparin/Saline Lock 20 Gait/Transferring 0 Mental Status 0 Score 35 OTHER Najera Fall Risk Medium (25-44) Safety Interventions Safety Precautions/Fall Reduction fall reduction program maintained;lighting adjusted for task/safety;nonskid shoes/slippers when out of bed Musculoskeletal Interventions Activity/Level of Assistance up in room;independently Positioning independent Muscle Strengthening activity/mobility promoted Self-Care Promotion assistance provided to decrease frustration;independence encouraged while providing assistance Goal: Infection Control Outcome: Ongoing (Interventions Implemented as Appropriate) 02/24/142005 Safety Interventions Infection Prevention blood glucose management;rest/sleep promoted Coping/Psychosocial Response Interventions Counseling emotional support provided Goal: Discharge Needs Assessment Outcome: Ongoing (Interventions Implemented as Appropriate) 02/24/14 0543 Discharge Needs Assessment Concerns to be Addressed denies needs/concerns at this time Equipment Needed After Discharge none Current Health Anticipated Changes Related to Illness none Self-Care Equipment Currently Used at Home none Living Environment Transportation Available car Problem: Fall/Trauma/Injury Risk (Adult, Obstetrics) Goal: Identify Signs and Symptoms and Related Risk Factors Signs and symptoms and related risk factors are identified upon initiation of Human Response Clinical Practice Guideline (CPG) Outcome: Ongoing (Interventions Implemented as Appropriate) 02/24/14 0543 Fall/Trauma/Injury Risk Personal Related Risk Factors (Fall/Trauma/Injury Risk) gait/mobility problems/weakness Treatment Related Related Risk Factors (Fall/Trauma/Injury Risk) medication Goal: Absence of Trauma/Injury/Falls Patient will demonstrate the desired outcomes. Outcome: Ongoing (Interventions Implemented as Appropriate) 02/24/14542 Fall/Trauma/Injury Risk (Adult, Obstetrics) Absence of Trauma/Injury/Falls making progress toward outcome Problem: Skin Integrity Impairment, Risk/Actual (Adult, Obstetrics) Goal: Identify Signs and Symptoms and Related Risk Factors Signs and symptoms and related risk factors are identified upon initiation of Human Response Clinical Practice Guideline (CPG) Outcome: Ongoing (Interventions Implemented as Appropriate) Goal: Skin Integrity/Wound Healing Patient will demonstrate the desired outcomes. Outcome: Ongoing (Interventions Implemented as Appropriate) 02/24/14542 Skin Integrity Impairment, Risk/Actual (Adult, Obstetrics) Skin Integrity/Wound Healing making progress toward outcome * Plan of Care - Lucy Rios RN - 02/24/2014 6:23 AM EST Problem: General Plan of Care Goal: Plan of Care Review Outcome: Ongoing (Interventions Implemented as Appropriate) 02/23/142029 Coping/Psychosocial Response Interventions Plan of Care Reviewed with patient .. OUTCOME EVALUATION NOTE: OUTCOME SUMMARY: IV antibiotics administered per MAR this shift, once attained from pharmacy. Lantus was not administered this shift d/t unavailability from pharmacy after multiple attempts per this securities underwriter to have the medication verified and sent to the unit. PRN IV Morphine administered x 2 this shift with good effect. Pt is independent in the room, but calls for assistance d/t IV pole. VSS. PLAN MOVING FORWARD: Continue to administer IV antibiotics and mediate for pain as needed. Continue to assess erythema and dressing site on abdomen. INDIVIDUALIZED FALL PREVENTION: Assistance: Standby assist with ambulation. Turns independently in the bed. Supervision: Hourly rounding per protocol. Surveillance: Masimo CPG OUTCOME EVALUATION: Goal: Individualization and Mutuality Outcome: Ongoing (Interventions Implemented as Appropriate) 02/23/142029 Mutuality/Individual Preferences What anxieties, fears or concerns do you have about your health or care? i don't get nervous What questions do you have about your health or care? when is my food coming What information would help us give you more personalized care? none Goal: Fall Prevention-Safe Patient Handling Outcome: Ongoing (Interventions Implemented as Appropriate) 02/23/14199902/23/142029 Najera Fall Risk History of Falling 0 -- Secondary Diagnosis 15 -- Ambulatory Aids 0 -- Intravenous Therapy/Heparin/Saline Lock 20 -- Gait/Transferring 10 -- Mental Status 0 -- Score 45 -- OTHER Najera Fall Risk High (45 and higher) -- Safety Interventions Safety Precautions/Fall Reduction -- fall reduction program maintained;family at bedside;lighting adjusted for task/safety;nonskid shoes/slippers when out of bed Musculoskeletal Interventions Activity/Level of Assistance -- up in room;with stand by assist Positioning -- independent Muscle Strengthening -- activity/mobility promoted Self-Care Promotion -- assistance provided to decrease frustration;independence encouraged while providing assistance Goal: Infection Control Outcome: Ongoing (Interventions Implemented as Appropriate) 02/23/142029 Safety Interventions Infection Prevention blood glucose management;rest/sleep promoted Coping/Psychosocial Response Interventions Counseling emotional support provided Goal: Discharge Needs Assessment Outcome: Ongoing (Interventions Implemented as Appropriate) 02/24/14542 Discharge Needs Assessment Concerns to be Addressed denies needs/concerns at this time Equipment Needed After Discharge none Current Health Anticipated Changes Related to Illness none Self-Care Equipment Currently Used at Home none Living Environment Transportation Available car Problem: Fall/Trauma/Injury Risk (Adult, Obstetrics) Goal: Identify Signs and Symptoms and Related Risk Factors Signs and symptoms and related risk factors are identified upon initiation of Human Response Clinical Practice Guideline (CPG) Outcome: Ongoing (Interventions Implemented as Appropriate) 02/24/14542 Fall/Trauma/Injury Risk Personal Related Risk Factors (Fall/Trauma/Injury Risk) gait/mobility problems/weakness Treatment Related Related Risk Factors (Fall/Trauma/Injury Risk) medication Pt is alert and oriented, uses the call [place] system appropriately, and it remains within reach. Goal: Absence of Trauma/Injury/Falls Patient will demonstrate the desired outcomes. Outcome: Ongoing (Interventions Implemented as Appropriate) 02/24/14542 Fall/Trauma/Injury Risk (Adult, Obstetrics) Absence of Trauma/Injury/Falls making progress toward outcome Problem: Skin Integrity Impairment, Risk/Actual (Adult, Obstetrics) Goal: Identify Signs and Symptoms and Related Risk Factors Signs and symptoms and related risk factors are identified upon initiation of Human Response Clinical Practice Guideline (CPG) Outcome: Ongoing (Interventions Implemented as Appropriate) Pt remains independent in the bed. Abdominal dressing remains intact. Goal: Skin Integrity/Wound Healing Patient will demonstrate the desired outcomes. Outcome: Ongoing (Interventions Implemented as Appropriate) 02/24/14 0543 Skin Integrity Impairment, Risk/Actual (Adult, Obstetrics) Skin Integrity/Wound Healing making progress toward outcome * Consult Note - Artemio Walker MD - 02/23/2014 9:36 PM EST [facility] Department of Surgery Inpatient Consult Note Consultation Requested by: Ja Dc MD History of Present Illness: We are seeing Reggie Pena today at the request of Ja Robledo MD for evaluation and advice about cellulitis and abscess. Reggie Pena is a 43 year old male with history of morbid obesity, poorly controlled DM, and recurrent cellulitis infections, who presents with left abdominal pannus cellulitis and abscess. Patient reports that he began to feel unwell on 02/16/14 with generalized malaise. He then noted pain on the left lower abdomen and a perez. He reports that he often gets darling that just spontaneously drain and resolve without treatment. He noted some surrounding erythema. He then developed fever, chills, and vomiting, when he decided to presented to OSH on 02/20/14. There, labs were remarkable for a leukocytosis of 18k and a CT with soft tissue edema and left sided collection. He reports that the cellulitisis now improving and the wound has continued to drain spontaneously. Due to concern at OSH for possible need for surgical evaluation, he was transferred to [facility] for further care. Of note, patient states that he has been previously hospitalized 6 times for recurrent RLE cellulitis, requiring IV antibiotics. Past Medical History: Diabetes mellitus type 2 Obesity HTN Recurrent cellulitis Past Surgical History: Denies Medications: Glipizide 7.5mg daily Lisinopril 10mg daily Allergies: No Known Allergies Family History: Significant for diabetes and CAD. Social History: , lives with 18 year old daughter. 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 Active smoker, 3ppd x 25 years.Rare alcohol use. Denies recreational drug use. Review of Systems: As per HPI, otherwise negative. Physical Exam: Temp: [36.9 ??C (98.4 ??F)-37.6 ??C (99.7 ??F)] Heart Rate: [88-89] Resp: [20] BP: (114-147)/(59-62) SpO2: [94 %] Gen: NAD, resting comfortably in bed HEENT: no scleral icterus, moist mucous membranes CV: regular rate and rhythm Pulm: clear anteriorly, diminished at bases, normal work of breathing Abd: obese, erythema starting approximately 10cm below the umbilicus and extending across the lowerabdomen, in the pannus crease, just left of midline there is a small 5mm opening draining purulent material - this was probed and tracked 7cm laterally. More medial to this is a small area with fluctuance and tenderness approximately 2x1cm in size. Ext: no cyanosis Skin: warm and dry, erythema and warm across lower abdomen as described above Neuro: grossly intact, alert and oriented Labs: CBC Lab Results Component Value Date WBC 11.4* 02/23/2014 Hemoglobin 12.4* 02/23/2014 Hematocrit 36.6* 02/23/2014 Platelets 195 02/23/2014 Electrolytes Lab Results Component Value Date Sodium 139 02/23/2014 Potassium 3.7 02/23/2014 Chloride 96* 02/23/2014 CO2 28 02/23/2014 Lab Results Component Value Date BUN 8* 02/23/2014 CREATININE 0.60* 02/23/2014 Imaging: CT from OSH Impression: 43 year old male smoker with obesity, DM type 2, and history of recurrent RLE cellulitis infectionspresenting from OSH with abdominal wall cellulitis and abscess. He has remained on IV antibiotics with only minimal improvement in cellulitis. On repeat labs, leukocytosis is trending down, now 11k. On exam, there is spontaneously drainage at one site - this decreased with probing. Just medial, there was a small region that was very tender to palpation with fluctuance. This area was I&D, as detailed below. At this time, recommend continuing medical management with broad spectrum antibioticsand tight glucose control. Will continue to monitor and follow along with you. Procedure: After informed consent was obtained, a time out was performed. The skin was prepped with betadine. 3mL of 1% lidocaine was used for local anesthesia. A cruciate incision was made using an 11-blade scalpel. There was scan amount of purulent drainage. A culture was obtained. The wound tracked laterally approximately 4cm. It was packed with 1/2 inch plain packing and dressed with guaze. Patient tolerated the procedure well, without complications. Recommendation: - Continue broad spectrum antibiotics: vancomycin and zosyn - Tight blood glucose control - Follow up wound cultures - Monitor erythema closely - Contact surgery if clinical presentation changes or erythema worsens - Surgery will continue to follow - Further care as per primary team Thank you for this consult. If you have any questions regarding this consult, please page [phone]. [x] Consult service to continue to follow [] Consult service to sign off ARTEMIO WALKER MD Associated attestation - Carlota Rich MD - 02/25/2014 1:07 PM EST Patient seen and examined with Dr. Walker and I agree with her note below. In brief, this 43 y/o morbidly obese diabetic man was transferred from [facility] with pannicular cellulitis and an abdominal wall abscess. A CT scan on 02/20 done at the OSH demonstrated some soft tissue inflammation/edema around a collection of air, but no organized abscess or fluid collection. He has been treated with IV antibiotics, but was sent to [facility] when he failed to improve. AVSS and has been hemodynamically stable throughout Abdomen obese with cellulitis extending across the lower pannus. In the pannus crease to the left of midline is a very small opening that is spontaneously draining purulent material and tracks laterally upon probing. There is a small (~2-3cm) fluctuant area on the underside of the pannus about 5cm medial to the current opening--this was I&D'd as described below. WBC 11.4 Cultures sent 43 y/o M with pannicular cellulitis and an associated spontaneously-draining abscess. A second fluctuant area was opened at bedside. There is no evidence of necrotizing infection, and no need at thistime for more extensive surgical treatment. Recommend local wound care with packing, continuing broad spectrum antibiotics, and tight glucose control. We will continue to follow. documented in this encounter Plan of Treatment Upcoming Encounters Date Type Department Care Team (Late st Contact Info) Description 02/02/2024 3:00 PM EST Office Visit Radiation Oncology at [address] [phone] [facility] [address] documented as of this encounter Procedures Procedure Name Priority Date/Time Associated Diagnosis Comments VANCOMYCIN, TROUGH Timed 02/26/2014 12 :36 PM EST POCT GLUCOSE Routine 02/26/2014 11:54 AM EST HEMOGRAM Routine 02/26/2014 7:13 AM EST DIFFERENTIAL, AUTOMATED Routine 02/26/2014 7:13 AM EST CBC (WITH DIFF) Routine 02/26/2014 7:13 AM EST HEMOGLOBIN A1C Routine 02/26/2014 7:13 AM EST BASIC METABOLIC PANEL Routine 02/26/2014 7:13 AM EST POCT GLUCOSE Routine 02/26/2014 6:51 AM EST POCT GLUCOSE Routine 02/26/2014 4:21 AM EST POCT GLUCOSE Routine 02/26/2014 12:14 AM EST POCT GLUCOSE Routine 02/25/2014 8:41 PM EST POCT GLUCOSE Routine 02/25/2014 4:16 PM EST POCT GLUCOSE Routine 02/25/2014 11:25 AM EST ANAEROBIC CULTURE Routine 02/25/2014 8:5 3 AM EST ABSCESS/WOUND ASP CULTURE, AEROBIC AND ANAEROBIC Routine 02/25/2014 8:53 AM EST ABSCESS/WOUND ASPIRATE CULTURE Routine 02/25/2014 8:53 AM EST POCT GLUCOSE Routine 02/25/2014 7:05 AM EST DIFFERENTIAL, MANUAL Routine 02/25/2014 5:25 AM EST HEMOGRAM Routine 02/25/2014 5:25 AM EST CBC (WITH DIFF) Routine 02/25/2014 5:25 AM EST VANCOMYCIN, TROUGH Timed 02/25/2014 5: 25 AM EST BASIC METABOLIC PANEL Routine 02/25/2014 5:25 AM EST POCT GLUCOSE Routine 02/25/2014 4:13 AM EST POCT GLUCOSE Routine 02/24/2014 11:54 PM EST POCT GLUCOSE Routine 02/24/2014 7:41 PM EST POCT GLUCOSE Routine 02/24/2014 4:08 PM EST POCT GLUCOSE Routine 02/24/2014 12:01 PM EST POCT GLUCOSE Routine 02/24/2014 7:07 AM EST NUCLEATED RED BLOOD CELLS Routine 02/24/2014 6:54 AM EST HEMOGRAM Routine 02/24/2014 6:54 AM EST DIFFERENTIAL, AUTOMATED Routine 02/24/2014 6:54 AM EST APTT Routine 02/24/2014 6:54 AM EST PROTHROMBIN TIME Routine 02/24/2014 6:54 AM EST CBC (WITH DIFF) Routine 02/24/2014 6:54 AM EST BASIC METABOLIC PANEL Routine 02/24/2014 6:54 AM EST POCT GLUCOSE Routine 02/24/2014 4:16 AM EST BODY FLUID CULTURE, AEROBIC Routine 02/23/2014 10:37 PM EST POCT GLUCOSE Routine 02/23/2014 10:34 PM EST HEMOGRAM Routine 02/23/2014 10:02 PM EST DIFFERENTIAL, AUTOMATED Routine 02/23/2014 10:02 PM EST CBC (WITH DIFF) Routine 02/23/2014 10:02 PM EST BASIC METABOLIC PANEL Routine 02/23/2014 10:02 PM EST ABO/RH TYPING Routine 02/23/2014 9:40 PM EST ANTIBODY SCREEN Routine 02/23/2014 9:40 PM EST TYPE AND SCREEN ([facility]/ERNESTINA) Routine 02/23/2014 9:40 PM EST VANCOMYCIN, TROUGH Timed 02/23/2014 9: 40 PM EST documented in this encounter Results * Vancomycin, trough (02/26/2014 12:36 PM EST) Vancomycin, Trough 10.7 mg/L [facility] [facility] Comment: Therapeutic range for complicated infections such as bacteremia, endocarditis, osteomyelitis, meningitis, and hospital-acquired pneumonia caused by S. aureus: 15-20 mg/L Therapeutic range for other indications: 10-15 mg/L Toxic: >25 mg/L Reference: Vancomycin Therapeutic Monitoring: Review and Recommendations from the ASHP, IDSA and SIDP Task Force. ??Am J Health-Syst Pharm. 2009; 66:82-98 Blood specimen (specimen) 02/26/2014 12:36 PM EST 02/26/2014 12:44 PM EST Narrative Resulting Agency Comment Spec In Lab Ja Dc MD CHEMISTRY ORDERABLES [facility] * POCT Glucose (02/26/2014 11:54 AM EST) Glucose, POC 173 60 - 199 mg/dL CERNER MILLENNIUM Comment: Supplemental ranges: <140 mg/dL before meals <180 mg/dL all other times of the day Blood specimen (specimen) 02/26/2014 11:54 AM EST 02/26/2014 11:54 AM EST Ja Dc MD POINT OF CARE TEST O RDERABLES CERNER MILLENNIUM * (ABNORMAL) Differential, Automated (02/26/2014 7:13 AM EST) Neutrophil % 68.7 % CERNER MILLENNIUM Neutrophil Absolute 6.62(H) 1.50 - 6.30 x10(3)/mc L CERNER MILLENNIUM Lymph % 12.6 % CERNER MILLENNIUM Lymphocytes Abs 1.2 1.0 - 3.6 x10(3)/mc L CERNER MILLENNIUM Monocyte % 8.8 % CERNER MILLENNIUM Monocyte Abs 0.8 0.2 - 1.0 x10(3)/mc L CERNER MILLENNIUM Eos % 3.6 % CERNER MILLENNIUM Eosinophils Abs 0.4 0.0 - 0.5 x10(3)/mc L CERNER MILLENNIUM Basophil % 0.8 % CERNER MILLENNIUM Baso Absolute 0.1 0.0 - 0.2 x10(3)/mc L CERNER MILLENNIUM Immature Gran % 5.50 % CERN ER MILLENNIUM Comment: Immature granulocytes(IG's)percentage and absolute count will include metamyelocytes, myelocytes, and promyelocytes. Blood smears from CBCs yielding IG's will be scanned manually for concordance. If this scan disagrees with the automated IG or if promyelocytes are noted, a manual differential will be performed. Immature Gran Absolute 0.53(H) 0.00 - 0.05 x10(3)/mc L CERNER MILLENNIUM Blood specimen (specimen) 02/26/2014 7:13 AM EST 02/26/2014 7:17 AM EST Narrative Resulting Agency Comment Spec In Lab Zoie Gong DO HEMATOLOGY ORDERA BLES JERSON WAITE * (ABNORMAL) Hemogram (02/26/2014 7:13 AM EST) White Blood Cell 9.6 4.0 - 10.0 x10(3)/mc L CERNER MILLENNIUM Red Blood Cell 4.51(L) 4.63 - 6.08 x10(6)/mc L CERNER MILLENNIUM Hemoglobin 13.0(L) 13.7 - 17.5 gm/dL CERNER MILLENNIUM Hematocrit 38.7(L) 40.0 - 51.0 % CERNER MILLENNIUM Mean Cell Volume 85.8 79.0 - 92.0 fL CERNER MILLENNIUM Mean Cell Hemoglobin 28.8 25.6 - 32.2 pg CERNER MILLENNIUM Mean Cell Hemoglobin Concentration 33.6 32.0 - 36.5 gm/dL CERNER MILLENNIUM Platelet 235 145 - 370 x10(3)/mc L CERNER MILLENNIUM RDW Standard Deviation 45.0 35.0 - 46.0 fL CERNER MILLENNIUM RDW coefficient of variation 14.4 10.9 - 14.4 % CERNER MILLENNIUM Mean Platelet Volume 10.0 9.0 - 12.0 fL CERNER MILLENNIUM Blood specimen (specimen) 02/26/2014 7:13 AM EST 02/26/2014 7:17 AM EST Narrative Resulting Agency Comment Spec In Lab Zoie Gong DO HEMATOLOGY ORDERA BLES Performing Organization Address [facility] de Phone Number CERANA WAITE * (ABNORMAL) Basic Metabolic Panel (non-fasting) (02/26/2014 7:13 AM EST) Pathologist [facility] Glucose 198 60 - 199 mg/dL CERNER MILLENNIUM Comment:Diabetes: >=200 mg/d L plus symptoms Blood Urea Nitrogen 6(L) 10 - 20 mg/dL CERNER MILLENNIUM Creatinine 0.56(L) 0.80 - 1.50 mg/dL CERNER MILLENNIUM Comment: Please note that the pediatric reference intervals supplied above were not validated at [place]. Results from pediatric patients should be interpreted in conjunction to the patient's age, height and muscle mass. Sodium 135 135 - 145 mmol/L CERNER MILLENNIUM Potassium 4.0 3.5 - 5.0 mmol/L CERNER MILLENNIUM Comment: Please note: ??Patients with WBC >100,000 may have falsely elevated Potassium levels. ??For accurate Potassium quantification in these patients send serum separator tube (gold top) for subsequent determinations. ??Contact the Clinical Chemistry Laboratory if there are any questions. Chloride 96(L) 98 - 107 mmol/L CERNER MILLENNIUM Carbon Dioxide 30 22 - 31 mmol/L CERNER MILLENNIUM Anion Gap 9 5 - 15 mmol/L CERNER MILLENNIUM Calcium 8.7 8.5 - 10.5 mg/dL CERNER MILLENNIUM Est Glomerular Filtration Rate >60 >=60 CERNER MILLENNIUM Comment: This estimated GFR (eGFR) value was calculated using the MDRD equation which has been validated on patients between the ages of 18 and 70. The MDRD should not be used to assess kidney function in patients < 18 years of age or in patients with extremes of body mass, or in patients with acute kidney failure. This value should be multiplied by 1.2 for patients. For further information please copy and paste the following links into your internet browser. [email or web address] Blood specimen (specimen) 02/26/2014 7:13 AM EST 02/26/2014 7:18 AM EST Narrative Resulting Agency Comment Spec In Lab Zoie Gong DO CHEMISTRY ORDERAB LES CERANA HUIPARVEEN * (ABNORMAL) Hemoglobin A1c (02/26/2014 7:13 AM EST) Hemoglobin A1c 9.7(H) <=5.6 % LUISANE R MILLENNIUM Comment: Reference Range: 4.3 - 5.6% 5.7 - 6.4% - Increased Risk of Developing Diabetes Mellitus 6.5% - Consistent with diagnosis of Diabetes Mellitus In the absence of hyperglycemia (i.e. plasma glucose > 200 mg/dL) or classic symptoms of hyperglycemia a repeat measurement of HbA1c should be performed on a separate sample to confirm the diagnosis. Diagnosis and Classification of Diabetes Mellitus, Diabetes Care 2013; 36: Suppl. 1, S67-74 Estimated Average Glucose 232 mg/dL [facility] Comment: eAG equivalents for HbA1c percentages: HbA1c(%) ?eAG(mg/dL) 6.0 ?126 6.5 ?140 7.0 ?154 7.5 ?169 8.0 ?183 8.5 ?197 9.0 ?212 9.5 ?226 10.0 ? 240 Limitations: The eAG calculation has not been validated on women, individuals below 18 years old and above 70 years old, and individuals with hemoglobinopathies. Additional resources are available on the ADA website: [email or web address] Juan ECKERT, Bob J, Anthony R, et al. ??Translating the A1C assay into estimated average glucose values. ??Diabetes Care 2008:31(8):7090-5406. Blood specimen (specimen) 02/26/2014 7:13 AM EST 02/26/2014 7:17 AM EST Narrative Resulting Agency Comment Spec In Lab Zoie Gong DO CHEMISTRY ORDERAB LES [facility] * POCT Glucose (02/26/2014 6:51 AM EST) Glucose, POC 172 60 - 199 mg/dL [facility] Comment: Supplemental ranges: <140 mg/dL before meals <180 mg/dL all other times of the day Blood specimen (specimen) 02/26/2014 6:51 AM EST 02/26/2014 6:51 AM EST Ja Dc MD POINT OF CARE TEST O RDERABLES Performing Organization Address [facility] Phone Number [facility] * POCT Glucose (02/26/2014 4:21 AM EST) Glucose, POC 174 60 - 199 mg/dL [facility] Comment: Supplemental ranges: <140 mg/dL before meals <180 mg/dL all other times of the day Blood specimen (specimen) 02/26/2014 4:21 AM EST 02/26/2014 4:21 AM EST Ja Dc MD POINT OF CARE TEST O RDERAANAMARIA Performing Organization Address [facility] Phone Number [facility] * POCT Glucose (02/26/2014 12:14 AM EST) Glucose, POC 190 60 - 199 mg/dL [facility] Comment: Supplemental ranges: <140 mg/dL before meals <180 mg/dL all other times of the day Blood specimen (specimen) 02/26/2014 12:14 AM EST 02/26/2014 12:14 AM EST Ja Dc MD POINT OF CARE TEST O RDERAANAMARIA Performing Organization Address [facility] Phone Number [facility] * (ABNORMAL) POCT Glucose (02/25/2014 8:41 PM EST) Glucose, POC 210(H) 60 - 199 mg/dL [facility] Comment: Supplemental ranges: <140 mg/dL before meals <180 mg/dL all other times of the day Blood specimen (specimen) 02/25/2014 8:41 PM EST 02/25/2014 8:41 PM EST Ja Dc MD POINT OF CARE TEST O RDERAANAMARIA Performing Organization Address [facility] de Phone Number [facility] * POCT Glucose (02/25/2014 4:16 PM EST) Glucose, POC 189 60 - 199 mg/dL [facility] Comment: Supplemental ranges: <140 mg/dL before meals <180 mg/dL all other times of the day Blood specimen (specimen) 02/25/2014 4:16 PM EST 02/25/2014 4:16 PM EST Ja Dc MD POINT OF CARE TEST O RDERABLES Performing Organization Address [facility] Co de Phone Number [facility] * (ABNORMAL) POCT Glucose (02/25/2014 11:25 AM EST) Glucose, POC 202(H) 60 - 199 mg/dL [facility] Comment: Supplemental ranges: <140 mg/dL before meals <180 mg/dL all other times of the day Blood specimen (specimen) 02/25/2014 11:25 AM EST 02/25/2014 11:25 AM EST Ja Dc MD POINT OF CARE TEST O RDERAANAMARIA Performing Organization Address [facility] Co de Phone Number [facility] * Anaerobic Culture (02/25/2014 8:53 AM EST) Anaerobic Culture ? Patient Name: REGGIE PENA ? Ordered By: ZOIE GONG ? MR#: [id number] ?LOC: ??3EST ? /Sex: ??1970 (43 years), ? Male ? PROCEDURE: Anaerobic Culture ?SOURCE: Abscess ? COLLECTED: 02/25/2014 08:53 ? BODY SITE: Abdomen ? STARTED: 02/25/2014 09:33 ? FINAL REPORT ? Final Report ? Verified:2014 14:43 ? No anaerobic organisms isolated ? PRELIMINARY REPORT ? Preliminary Report ? Verified:2014 11:14 ? No anaerobic organisms isolated to date ? CERNER MILLENNIUM Specimen from abscess (specimen) ABDOMEN / Unknown 02/25/2014 8:53 AM EST 02/25/2014 9:33 AM EST Narrative Resulting Agency Comment Spec In Lab Zoie Gong DO MICROBIOLOGY - GE NERAL ORDERABLES [facility] * Wound Aspirate/Abscess Culture (02/25/2014 8:53 AM EST) Abscess/Wound Aspirate Culture ? Patient Name: REGGIE PENA ? Ordered By: ZOIE GONG ? MR#: [id number] ?LOC: ??3EST ? /Sex: ??1970 (43 years), ? Male ? PROCEDURE: Wound Aspirate/Abscess Culture ?SOURCE: Abscess ? COLLECTED: 02/25/2014 08:53 ? BODY SITE: Abdomen ? STARTED: 02/25/2014 09:33 ? STAINS / PREPARATIONS ? Gram Stain Report ? Verified: 14:38 ? Moderate White Blood Cells seen ? Rare Gram Positive Cocci seen ? FINAL REPORT ? Final Report ? Verified: 10:22 ? Normal cutaneous luiz isolated from broth culture. ? No growth on original plates. ? PRELIMINARY REPORT ? Preliminary Report ? Verified: 09:44 ? Gram Positive Cocci seen in Gram Stain of broth culture. ? No growth on original plates. ? CERNER MILLENNIUM Specimen from abscess (specimen) ABDOMEN / Unknown 02/25/2014 8:53 AM EST 02/25/2014 9:33 AM EST Narrative Resulting Agency Comment Spec In Lab Zoie Gong DO MICROBIOLOGY - GE NERAL ORDERABLES Performing Organization Address [facility] de Phone Number [facility] * POCT Glucose (02/25/2014 7:05 AM EST) Glucose, POC 194 60 - 199 mg/dL CERNER MILLENNIUM Comment: Supplemental ranges: <140 mg/dL before meals <180 mg/dL all other times of the day Blood specimen (specimen) 02/25/2014 7:05 AM EST 02/25/2014 7:05 AM EST Ja Dc MD POINT OF CARE TEST O RDERABLES Performing Organization Address [facility] Co de Phone Number CERNER MILLENNIUM * (ABNORMAL) Differential, Manual (02/25/2014 5:25 AM EST) Neutrophil % Manual 65 % CERNER MILLENNIUM Band % 3 % CERNER MILLENNIUM Lymphocyte Manual 14 % CE RNER MILLENNIUM Monocyte Manual 12 % CERN ER MILLENNIUM Eosinophil Manual 4 % CE RNER MILLENNIUM Basophil Manual 2 % CERN ER MILLENNIUM Neutrophil Absolute (ANC) - Manual 6.1 1.5 - 6.3 x10(3)/mc L CERNER MILLENNIUM Band Abs 0.3 0.2 - 0.6 x10(3)/mc L CERNER MILLENNIUM Neutrophil Absolute (ANC) - Automated 6.40(H) 1.50 - 6.30 x10(3)/mc L CERNER MILLENNIUM Lymph Absolute Manual 1.3 1.0 - 3.6 x10(3)/mc L CERNER MILLENNIUM Monocyte Absolute Manual 1.1(H) 0.2 - 1.0 x10(3)/mc L CERNER MILLENNIUM Eos Absolute Manual 0.4 0.0 - 0.5 x10(3)/mc L CERNER MILLENNIUM Baso Absolute Manual 0.2 0.0 - 0.2 x10(3)/mc L CERNER MILLENNIUM Nucleated Red Cell Manual 2 % CERNER MILLENNIUM Total Cells Ct 100 CERNE R MILLENNIUM Plat estimate Normal CERNER MILLENNIUM RBC Morphology Abnormal CERNE R MILLENNIUM Polychromasia Present >5/HPF CERNER MILLENNIUM [place] Cells 1-5 /HPF CERNER MILLENNIUM nRBC Abs 0.190(H) 0.000 - 0.012 x10(3)/mc L CERNER MILLENNIUM Blood specimen (specimen) 02/25/2014 5:25 AM EST 02/25/2014 5:30 AM EST Narrative Resulting Agency Comment Spec In Lab Zoie Gong DO HEMATOLOGY ORDERA BLES CERNER MILLENNIUM * Vancomycin, trough (02/25/2014 5:25 AM EST) Vancomycin, Trough 5.0 mg/L C ERNER MILLENNIUM Comment: Therapeutic range for complicated infections such as bacteremia, endocarditis, osteomyelitis, meningitis, and hospital-acquired pneumonia caused by S. aureus: 15-20 mg/L Therapeutic range for other indications: 10-15 mg/L Toxic: >25 mg/L Reference: Vancomycin Therapeutic Monitoring: Review and Recommendations from the ASHP, IDSA and SIDP Task Force. ??Am J Health-Syst Pharm. 2009; 66:82-98 Blood specimen (specimen) 02/25/2014 5:25 AM EST 02/25/2014 5:30 AM EST Narrative Resulting Agency Comment Spec In Lab Zoie Gong DO CHEMISTRY ORDERAB LES CERNER MILLENNIUM * (ABNORMAL) Hemogram (02/25/2014 5:25 AM EST) White Blood Cell 9.4 4.0 - 10.0 x10(3)/mc L CERNER MILLENNIUM Red Blood Cell 4.37(L) 4.63 - 6.08 x10(6)/mc L CERNER MILLENNIUM Hemoglobin 12.1(L) 13.7 - 17.5 gm/dL CERNER MILLENNIUM Hematocrit 37.2(L) 40.0 - 51.0 % CERNER MILLENNIUM Mean Cell Volume 85.1 79.0 - 92.0 fL CERNER MILLENNIUM Mean Cell Hemoglobin 27.7 25.6 - 32.2 pg CERNER MILLENNIUM Mean Cell Hemoglobin Concentration 32.5 32.0 - 36.5 gm/dL CERNER MILLENNIUM Platelet 210 145 - 370 x10(3)/mc L CERNER MILLENNIUM RDW Standard Deviation 44.6 35.0 - 46.0 fL CERNER MILLENNIUM RDW coefficient of variation 14.3 10.9 - 14.4 % CERNER MILLENNIUM Mean Platelet Volume 9.6 9.0 - 12.0 fL CERNER MILLENNIUM Blood specimen (specimen) 02/25/2014 5:25 AM EST 02/25/2014 5:30 AM EST Narrative Resulting Agency Comment Spec In Lab Zoie Gong DO HEMATOLOGY ORDERA BLES CERBANNER MILLENNIUM * (ABNORMAL) Basic Metabolic Panel (non-fasting) (02/25/2014 5:25 AM EST) Glucose 219(H) 60 - 199 mg/dL CERNER MILLENNIUM Comment:Diabetes: >=200 mg/d L plus symptoms Blood Urea Nitrogen 6(L) 10 - 20 mg/dL CERNER MILLENNIUM Creatinine 0.57(L) 0.80 - 1.50 mg/dL CERNER MILLENNIUM Comment: Please note that the pediatric reference intervals supplied above were not validated at [place]. Results from pediatric patients should be interpreted in conjunction to the patient's age, height and muscle mass. Sodium 136 135 - 145 mmol/L CERNER MILLENNIUM Potassium 3.7 3.5 - 5.0 mmol/L CERNER MILLENNIUM Comment: Please note: ??Patients with WBC >100,000 may have falsely elevated Potassium levels. ??For accurate Potassium quantification in these patients send serum separator tube (gold top) for subsequent determinations. ??Contact the Clinical Chemistry Laboratory if there are any questions. Chloride 96(L) 98 - 107 mmol/L CERNER MILLENNIUM Carbon Dioxide 30 22 - 31 mmol/L CERNER MILLENNIUM Anion Gap 10 5 - 15 mmol/L CERNER MILLENNIUM Calcium 8.5 8.5 - 10.5 mg/dL CERNER MILLENNIUM Est Glomerular Filtration Rate >60 >=60 CERNER MILLENNIUM Comment: This estimated GFR (eGFR) value was calculated using the MDRD equation which has been validated on patients between the ages of 18 and 70. The MDRD should not be used to assess kidney function in patients < 18 years of age or in patients with extremes of body mass, or in patients with acute kidney failure. This value should be multiplied by 1.2 for patients. For further information please copy and paste the following links into your internet browser. [email or web address] Blood specimen (specimen) 02/25/2014 5:25 AM EST 02/25/2014 5:30 AM EST Narrative Resulting Agency Comment Spec In Lab Zoie Gong DO CHEMISTRY ORDERAB LES Performing Organization Address [facility] Co de Phone Number [facility] * POCT Glucose (02/25/2014 4:13 AM EST) Glucose, POC 165 60 - 199 mg/dL [facility] Comment: Supplemental ranges: <140 mg/dL before meals <180 mg/dL all other times of the day Blood specimen (specimen) 02/25/2014 4:13 AM EST 02/25/2014 4:13 AM EST Ja Dc MD POINT OF CARE TEST O RDERAANAMARIA Performing Organization Address [facility] de Phone Number [facility] * (ABNORMAL) POCT Glucose (02/24/2014 11:54 PM EST) Glucose, POC 201(H) 60 - 199 mg/dL [facility] Comment: Supplemental ranges: <140 mg/dL before meals <180 mg/dL all other times of the day Blood specimen (specimen) 02/24/2014 11:54 PM EST 02/24/2014 11:54 PM EST Ja Dc MD POINT OF CARE TEST O RDERAANAMARIA Performing Organization Address [facility] Phone Number [facility] * (ABNORMAL) POCT Glucose (02/24/2014 7:41 PM EST) Glucose, POC 211(H) 60 - 199 mg/dL [facility] Comment: Supplemental ranges: <140 mg/dL before meals <180 mg/dL all other times of the day Blood specimen (specimen) 02/24/2014 7:41 PM EST 02/24/2014 7:41 PM EST Ja Dc MD POINT OF CARE TEST O RDERAANAMARIA Performing Organization Address [facility] Co de Phone Number [facility] * (ABNORMAL) POCT Glucose (02/24/2014 4:08 PM EST) Glucose, POC 218(H) 60 - 199 mg/dL [facility] Comment: Supplemental ranges: <140 mg/dL before meals <180 mg/dL all other times of the day Blood specimen (specimen) 02/24/2014 4:08 PM EST 02/24/2014 4:08 PM EST Ja Dc MD POINT OF CARE TEST O RDERAANAMARIA Performing Organization Address [facility] de Phone Number [facility] * POCT Glucose (02/24/2014 12:01 PM EST) Glucose, POC 179 60 - 199 mg/dL [facility] Comment: Supplemental ranges: <140 mg/dL before meals <180 mg/dL all other times of the day Blood specimen (specimen) 02/24/2014 12:01 PM EST 02/24/2014 12:01 PM EST Ja Dc MD POINT OF CARE TEST O JOSEERAANAMARIA Performing Organization Address [facility] de Phone Number [facility] * POCT Glucose (02/24/2014 7:07 AM EST) Glucose, POC 178 60 - 199 mg/dL [facility] Comment: Supplemental ranges: <140 mg/dL before meals <180 mg/dL all other times of the day Blood specimen (specimen) 02/24/2014 7:07 AM EST 02/24/2014 7:07 AM EST Ja Dc MD POINT OF CARE TEST O RDERAANAMARIA Performing Organization Address [facility] Phone Number [facility] * Nucleated Red Blood Cells (02/24/2014 6:54 AM EST) Pathologist [facility] NRBC% auto 0.0 % [facility] NRBC Absolute 0.000 0.000 - 0.012 x10(3)/mcL [facility] Blood specimen (specimen) 02/24/2014 6:54 AM EST 02/24/2014 7:29 AM EST Narrative Resulting Agency Comment Spec In Lab Iris Randolph MD HEMATOLOGY ORDERABLE S CERNER MILLENNIUM * (ABNORMAL) Differential, Automated (02/24/2014 6:54 AM EST) Neutrophil % 75.0 % CERNER MILLENNIUM Neutrophil Absolute 7.48(H) 1.50 - 6.30 x10(3)/mc L CERNER MILLENNIUM Lymph % 10.8 % CERNER MILLENNIUM Lymphocytes Abs 1.1 1.0 - 3.6 x10(3)/mc L CERNER MILLENNIUM Monocyte % 10.8 % CERNER MILLENNIUM Monocyte Abs 1.1(H) 0.2 - 1.0 x10(3)/mc L CERNER MILLENNIUM Eos % 1.3 % CERNER MILLENNIUM Eosinophils Abs 0.1 0.0 - 0.5 x10(3)/mc L CERNER MILLENNIUM Basophil % 0.4 % CERNER MILLENNIUM Baso Absolute 0.0 0.0 - 0.2 x10(3)/mc L CERNER MILLENNIUM Immature Gran % 1.70 % CERN ER MILLENNIUM Comment: Immature granulocytes(IG's)percentage and absolute count will include metamyelocytes, myelocytes, and promyelocytes. Blood smears from CBCs yielding IG's will be scanned manually for concordance. If this scan disagrees with the automated IG or if promyelocytes are noted, a manual differential will be performed. Immature Gran Absolute 0.17(H) 0.00 - 0.05 x10(3)/mc L CERNER MILLENNIUM Blood specimen (specimen) 02/24/2014 6:54 AM EST 02/24/2014 7:29 AM EST Narrative Resulting Agency Comment Spec In Lab Iris Randolph MD HEMATOLOGY ORDERABLE S CERANA MILLENNIUM * (ABNORMAL) Hemogram (02/24/2014 6:54 AM EST) White Blood Cell 10.0 4.0 - 10.0 x10(3)/mc L CERBANNER MILLENNIUM Red Blood Cell 4.29(L) 4.63 - 6.08 x10(6)/mc L CERNER MILLENNIUM Hemoglobin 12.1(L) 13.7 - 17.5 gm/dL CERNER MILLENNIUM Hematocrit 36.6(L) 40.0 - 51.0 % CERNER MILLENNIUM Mean Cell Volume 85.3 79.0 - 92.0 fL CERNER MILLENNIUM Mean Cell Hemoglobin 28.2 25.6 - 32.2 pg CERNER MILLENNIUM Mean Cell Hemoglobin Concentration 33.1 32.0 - 36.5 gm/dL CERNER MILLENNIUM Platelet 199 145 - 370 x10(3)/mc L CERNER MILLENNIUM RDW Standard Deviation 44.7 35.0 - 46.0 fL CERNER MILLENNIUM RDW coefficient of variation 14.4 10.9 - 14.4 % CERNER MILLENNIUM Mean Platelet Volume 10.0 9.0 - 12.0 fL CERNER MILLENNIUM Blood specimen (specimen) 02/24/2014 6:54 AM EST 02/24/2014 7:29 AM EST Narrative Resulting Agency Comment Spec In Lab Iris Randolph MD HEMATOLOGY ORDERABLE S Performing Organization Address [facility] Co de Phone Number [facility] * APTT (02/24/2014 6:54 AM EST) Partial Thromboplastin Time 34 25 - 35 sec [facility] Comment: Recommended therapeutic PTT range for full dose unfractionated heparin is 80-114 seconds. Blood specimen (specimen) 02/24/2014 6:54 AM EST 02/24/2014 7:29 AM EST Narrative Resulting Agency Comment Spec In Lab Iris Randolph MD HEMATOLOGY ORDERABLE S Performing Organization Address [facility] Co de Phone Number [facility] * Prothrombin Time (02/24/2014 6:54 AM EST) Prothrombin Time 15.2 12.5 - 15.5 sec [facility] Comment: [facility] Transfusion Committee Guidelines: INR less than 2.0, PTT less than OR equal to 43.5 seconds, or Fibrinogen greater than or equal to 100 mg/dl indicate adequate procoagulant activity for hemostasis in patients without underlying bleeding disorders. International Normalization Ratio 1.1 0.9 - 1.1 CERNER MILLENNIUM Blood specimen (specimen) 02/24/2014 6:54 AM EST 02/24/2014 7:29 AM EST Narrative Resulting Agency Comment Spec In Lab Iris Randolph MD HEMATOLOGY ORDERABLE S [facility] * (ABNORMAL) Basic Metabolic Panel (non-fasting) (02/24/2014 6:54 AM EST) Glucose 183 60 - 199 mg/dL CERNER MILLENNIUM Comment:Diabetes: >=200 mg/d L plus symptoms Blood Urea Nitrogen 6(L) 10 - 20 mg/dL CERNER MILLENNIUM Creatinine 0.52(L) 0.80 - 1.50 mg/dL CERNER MILLENNIUM Comment: Please note that the pediatric reference intervals supplied above were not validated at [place]. Results from pediatric patients should be interpreted in conjunction to the patient's age, height and muscle mass. Sodium 138 135 - 145 mmol/L CERNER MILLENNIUM Potassium 3.7 3.5 - 5.0 mmol/L CERNER MILLENNIUM Comment: Please note: ??Patients with WBC >100,000 may have falsely elevated Potassium levels. ??For accurate Potassium quantification in these patients send serum separator tube (gold top) for subsequent determinations. ??Contact the Clinical Chemistry Laboratory if there are any questions. Chloride 95(L) 98 - 107 mmol/L CERNER MILLENNIUM Carbon Dioxide 28 22 - 31 mmol/L CERNER MILLENNIUM Anion Gap 15 5 - 15 mmol/L CERNER MILLENNIUM Calcium 8.1(L) 8.5 - 10.5 mg/dL CERNER MILLENNIUM Est Glomerular Filtration Rate >60 >=60 CERNER MILLENNIUM Comment: This estimated GFR (eGFR) value was calculated using the MDRD equation which has been validated on patients between the ages of 18 and 70. The MDRD should not be used to assess kidney function in patients < 18 years of age or in patients with extremes of body mass, or in patients with acute kidney failure. This value should be multiplied by 1.2 for patients. For further information please copy and paste the following links into your internet browser. [email or web address] Blood specimen (specimen) 02/24/2014 6:54 AM EST 02/24/2014 7:29 AM EST Narrative Resulting Agency Comment Spec In Lab Iris Randolph MD CHEMISTRY ORDERABLES Performing Organization Address [facility] Phone Number [facility] * POCT Glucose (02/24/2014 4:16 AM EST) Glucose, POC 193 60 - 199 mg/dL [facility] Comment: Supplemental ranges: <140 mg/dL before meals <180 mg/dL all other times of the day Blood specimen (specimen) 02/24/2014 4:16 AM EST 02/24/2014 4:16 AM EST Ja Dc MD POINT OF CARE TEST O RDERABLES Performing Organization Address [facility] Phone Number [facility] * Body fluid culture Other (02/23/2014 10:37 PM EST) Body Fluid Culture ? Patient Name: REGGIE PENA ? Ordered By: JA DC ? MR#: [id number] ?LOC: ??3EST ? /Sex: ??1970 (43 years), ? Male ? PROCEDURE: Body Fluid Culture ?SOURCE: Other ? COLLECTED: 02/23/2014 22:37 ?FREE TEXT SOURCE: Abdominal abscess ? STARTED: 02/23/2014 22:47 ? STAINS / PREPARATIONS ? Gram Stain Report ? Verified:02/23/19 15 23:07 ? Few White Blood Cells seen ? No microorganisms seen. ? FINAL REPORT ? Final Report ? Verified:02/25/19 15 09:58 ? No growth ? PRELIMINARY REPORT ? Preliminary Report ? Verified:02/24/19 15 13:10 ? No growth to date. ? [facility] Specimen of unknown material (specimen) 02/23/2014 10:37 PM EST 02/23/2014 10:47 PM EST Comment:ABDOMINAL ABSCESS Narrative Resulting Agency Comment Spec In Lab Ja Dc MD MICROBIOLOGY - GENER AL ORDERABLES Performing Organization Address [facility] Co de Phone Number JERSON PARKERIUM * POCT Glucose (02/23/2014 10:34 PM EST) Glucose, POC 122 60 - 199 mg/dL [facility] Comment: Supplemental ranges: <140 mg/dL before meals <180 mg/dL all other times of the day Blood specimen (specimen) 02/23/2014 10:34 PM EST 02/23/2014 10:34 PM EST Ja Dc MD POINT OF CARE TEST O RDERABLES Performing Organization Address [facility] Co de Phone Number [facility] * (ABNORMAL) Differential, Automated (02/23/2014 10:02 PM EST) Neutrophil % 75.3 % CERNER MILLENNIUM Neutrophil Absolute 8.56(H) 1.50 - 6.30 x10(3)/mc L CERNER MILLENNIUM Lymph % 12.8 % CERNER MILLENNIUM Lymphocytes Abs 1.4 1.0 - 3.6 x10(3)/mc L CERNER MILLENNIUM Monocyte % 9.2 % CERNER MILLENNIUM Monocyte Abs 1.0 0.2 - 1.0 x10(3)/mc L CERNER MILLENNIUM Eos % 1.2 % CERNER MILLENNIUM Eosinophils Abs 0.1 0.0 - 0.5 x10(3)/mc L CERNER MILLENNIUM Basophil % 0.2 % CERNER MILLENNIUM Baso Absolute 0.0 0.0 - 0.2 x10(3)/mc L CERNER MILLENNIUM Immature Gran % 1.30 % CERN ER MILLENNIUM Comment: Immature granulocytes(IG's)percentage and absolute count will include metamyelocytes, myelocytes, and promyelocytes. Blood smears from CBCs yielding IG's will be scanned manually for concordance. If this scan disagrees with the automated IG or if promyelocytes are noted, a manual differential will be performed. Immature Gran Absolute 0.15(H) 0.00 - 0.05 x10(3)/mc L CERNER MILLENNIUM Blood specimen (specimen) 02/23/2014 10:02 PM EST 02/23/2014 10:43 PM EST Narrative Resulting Agency Comment Spec In Lab Iris Randolph MD HEMATOLOGY ORDERABLE S JERSON AMESENNI[facility] * (ABNORMAL) Hemogram (02/23/2014 10:02 PM EST) White Blood Cell 11.4(H) 4.0 - 10.0 x10(3)/mc L CERNER MILLENNIUM Red Blood Cell 4.28(L) 4.63 - 6.08 x10(6)/mc L CERNER MILLENNIUM Hemoglobin 12.4(L) 13.7 - 17.5 gm/dL CERNER MILLENNIUM Hematocrit 36.6(L) 40.0 - 51.0 % CERNER MILLENNIUM Mean Cell Volume 85.5 79.0 - 92.0 fL CERNER MILLENNIUM Mean Cell Hemoglobin 29.0 25.6 - 32.2 pg CERNER MILLENNIUM Mean Cell Hemoglobin Concentration 33.9 32.0 - 36.5 gm/dL CERNER MILLENNIUM Platelet 195 145 - 370 x10(3)/mc L CERNER MILLENNIUM RDW Standard Deviation 44.3 35.0 - 46.0 fL CERNER MILLENNIUM RDW coefficient of variation 14.3 10.9 - 14.4 % CERNER MILLENNIUM Mean Platelet Volume 10.4 9.0 - 12.0 fL CERNER MILLENNIUM Blood specimen (specimen) 02/23/2014 10:02 PM EST 02/23/2014 10:43 PM EST Narrative Resulting Agency Comment Spec In Lab Iris Randolph MD HEMATOLOGY ORDERABLE S CERNER MILLENNIUM * (ABNORMAL) Basic Metabolic Panel (non-fasting) (02/23/2014 10:02 PM EST) [facility] Glucose 123 60 - 199 mg/dL CERNER MILLENNIUM Comment:Diabetes: >=200 mg/d L plus symptoms Blood Urea Nitrogen 8(L) 10 - 20 mg/dL CERNER MILLENNIUM Creatinine 0.60(L) 0.80 - 1.50 mg/dL CERNER MILLENNIUM Comment: Please note that the pediatric reference intervals supplied above were not validated at [place]. Results from pediatric patients should be interpreted in conjunction to the patient's age, height and muscle mass. Sodium 139 135 - 145 mmol/L CERNER MILLENNIUM Potassium 3.7 3.5 - 5.0 mmol/L CERNER MILLENNIUM Comment: Please note: ??Patients with WBC >100,000 may have falsely elevated Potassium levels. ??For accurate Potassium quantification in these patients send serum separator tube (gold top) for subsequent determinations. ??Contact the Clinical Chemistry Laboratory if there are any questions. Chloride 96(L) 98 - 107 mmol/L CERNER MILLENNIUM Carbon Dioxide 28 22 - 31 mmol/L CERNER MILLENNIUM Anion Gap 15 5 - 15 mmol/L CERNER MILLENNIUM Calcium 8.4(L) 8.5 - 10.5 mg/dL CERNER MILLENNIUM Est Glomerular Filtration Rate >60 >=60 CERNER MILLENNIUM Comment: This estimated GFR (eGFR) value was calculated using the MDRD equation which has been validated on patients between the ages of 18 and 70. The MDRD should not be used to assess kidney function in patients < 18 years of age or in patients with extremes of body mass, or in patients with acute kidney failure. This value should be multiplied by 1.2 for patients. For further information please copy and paste the following links into your internet browser. [email or web address] Blood specimen (specimen) 02/23/2014 10:02 PM EST 02/23/2014 10:02 PM EST Narrative Resulting Agency Comment Spec In Lab Iris Randolph MD CHEMISTRY ORDERABLES Performing Organization Address [facility] Co de Phone Number [facility] * Vancomycin, trough (02/23/2014 9:40 PM EST) Pathologist [facility] Vancomycin, Trough 2.8 mg/L C ERNER MILLENNIUM Comment: Therapeutic range for complicated infections such as bacteremia, endocarditis, osteomyelitis, meningitis, and hospital-acquired pneumonia caused by S. aureus: 15-20 mg/L Therapeutic range for other indications: 10-15 mg/L Toxic: >25mg/L Reference: Vancomycin Therapeutic Monitoring: Review and Recommendations from the ASHP, IDSA and SIDP Task Force. ??Am J Health-Syst Pharm. 2009; 66:82-98 Blood specimen (specimen) 02/23/2014 9:40 PM EST 02/23/2014 9:58 PM EST Narrative Resulting Agency Comment Spec In Lab Ja Dc MD CHEMISTRY ORDERABLES Performing Organization Address [facility] Co de Phone Number [facility] * Antibody screen (02/23/2014 9:40 PM EST) Ab Screen Interp Negative JERSON PARKERIUM Expires at [id number] on: [id number] JERSON WAITE Blood specimen (specimen) 02/23/2014 9:40 PM EST 02/23/2014 10:23 PM EST Narrative Resulting Agency Comment Spec In Lab Iris Randolph MD BLOOD BANK LAB ORDER SOFY JERSON WAITE * ABO/Rh Typing (02/23/2014 9:40 PM EST) ABORH Type A Pos JERSON WAITE Blood specimen (specimen) 02/23/2014 9:40 PM EST 02/23/2014 10:23 PM EST Narrative Resulting Agency Comment Spec In Lab Iris Randolph MD BLOOD BANK LAB ORDER SOFY Performing Organization Address City/[facility]/ZIP Co de Phone Number JERSON WAITE documented in this encounter Visit Diagnoses Diagnosis Panniculitis- Primary Panniculitis, unspecified site Diabetes mellitus type 2, uncontrolled (DM) Type II or unspecified type diabetes mellitus without mention of complication, uncontrolled Morbid obesity Hypertension (HTN) Unspecified essential hypertension Tobacco abuse Tobacco use disorder documented in this encounter Administered Medications Inactive Administered Medications - up to 3 most recent administrations Medication Order MAR Action Action Date Dose Rate Site acetaminophen (TYLENOL) tablet 650 mg 650 mg, Oral, EVERY 6 HOURS PRN, Starting on Wed02/23/14 at 2101, Until 02/26/14 at 1530, Pain, Fever, Administer for temperature greater than or equal to 38.2 degrees celsius. Maximum daily dose of acetaminophen from all sources not to exceed 4,000 mg., Routine Given 02/25/2014 4:36 AM EST 650 mg enoxaparin (LOVENOX) injection 40 mg 40 mg, Subcutaneous, EVERY 24 HOURS SCHEDULED (Daily), First dose on 02/24/14 at 1800, Until Discontinued, Routine Given 02/26/2014 8:04 AM EST 40 mg Given 02/25/2014 8:54 AM EST 40 mg Given 02/24/2014 6:02 PM EST 40 mg insulin aspart (novoLOG) VIAL injection 2-8 Units 2-8 Units, Subcutaneous, EVERY 4 HOURS SCHEDULED, First dose on Wed02/23/14 at 2130, Until Discontinued, CORRECTION BOLUS Moderate BG 140 - 160 Give 2 units BG 161 - 200 Give 4 units BG 201 - 240 Give 6 units BG greater than 240, give 8 units and recheck BG in 2 hours. If BG remains greater than 240, repeat 8 units (no more than three times) & call for new basal insulin orders. If less than 240 after two hours, give no insulin and resume prior schedule. Given 02/26/2014 12:07 PM EST 4 Units Given 02/26/2014 8:05 AM EST 4 Units Given 02/26/2014 4:34 AM EST 4 Units insulin aspart (novoLOG) VIAL injection 5 Units 5 Units, Subcutaneous, 3 TIMES DAILY BEFORE MEALS, First dose on Wed02/24/14 at 0730, Until Discontinued, MEAL ASSOCIATED Hold if not eating Given 02/26/2014 12:08 PM EST 5 Units Given 02/26/2014 8:05 AM EST 5 Units Given 02/25/2014 4:50 PM EST 5 Units insulin glargine (LANTUS) VIAL injection 20 Units 20 Units, Subcutaneous, NIGHTLY, First dose on Wed02/23/14 at 2345, Until Discontinued, Routine Given 02/24/2014 8:02 PM EST 20 Units insulin glargine (LANTUS) VIAL injection 24 Units 24 Units, Subcutaneous, NIGHTLY, First dose (after last modification) on Wed02/25/14 at 2100, Until Discontinued, Routine Given 02/25/2014 8:52 PM EST 24 Units lidocaine (PF) (XYLOCAINE) 10 mg/mL (1 %) injection 10 mg 10 mg, Subcutaneous, ONCE, 1 dose, On Wed02/23/14 at 2215, STAT Given 02/23/2014 10:15 PM EST 10 mg lidocaine (XYLOCAINE) 10 mg/mL (1 %) injection 3 mg 3 mg (0.3 mL), Subcutaneous, ONCE PRN, 1 dose, Starting on Wed02/23/14 at 2101, Until Wed02/23/14 at 2217, for discomfort with PIV insertion, Routine Given 02/23/2014 10:17 PM EST 100 mg lisinopril (PRINIVIL;ZESTRIL) tablet 10 mg 10 mg, Oral, DAILY, First dose on 02/24/14 at 0900, Until Discontinued, Hold for SBP<110, Routine Given 02/26/2014 8:05 AM EST 10 mg Given 02/25/2014 9:00 AM EST 10 mg Given 02/24/2014 8:14 AM EST 10 mg morphine 2 mg/mL carpuject 2 mg 2 mg, Intravenous, EVERY 3 HOURS PRN, Starting on Wed02/23/14 at 2101, Until 02/26/14 at 1530, Pain, mild pain (1-3), May give an additional 2 mg in 30 minutes once if pain not relieved., Routine Given 02/25/2014 9:01 PM EST 2 mg Given 02/25/2014 1:04 PM EST 2 mg Given 02/23/2014 9:57 PM EST 2 mg morphine 4 mg/mL carpuject 4 mg 4 mg, Intravenous, EVERY 3 HOURS PRN, Starting on Wed02/23/14 at 2101, Until 02/26/14 at 1530, Pain, moderate pain (4-6), May give an additional 2 mg in 30 minutes once if pain not relieved., Routine Given 02/25/2014 4:50 PM EST 4 mg Given 02/24/2014 8:06 PM EST 4 mg Given 02/24/2014 5:01 AM EST 4 mg nystatin (MYCOSTATIN) cream Topical, 2 TIMES DAILY, First dose on 02/24/14 at 0000, Until Discontinued Given 02/26/2014 8:06 AM EST Given 02/25/2014 8:15 AM EST Given 02/24/2014 8:15 AM EST piperacillin-tazobactam (ZOSYN) 3.375 g in dextrose 5% 50 mL 3.375 g, Intravenous, EVERY 8 HOURS, First dose on Wed02/23/14 at 2130, Until Discontinued, Administer over 4 Hours, Indication for (Active or Suspected): Skin/Skin Structure Given 02/26/2014 8:05 AM EST 3.375 g 12.5 mL/hr Given 02/25/2014 11:57 PM EST 3.375 g 12.5 mL/hr Given 02/25/2014 4:50 PM EST 3.375 g 12.5 mL/hr sodium chloride 0.9 % flush 5 mL 5 mL, Intravenous, 2 TIMES DAILY, First dose on Wed02/23/14 at 2130, Until Discontinued, Routine Given 02/26/2014 8:05 AM EST 5 mLs Given 02/25/2014 8:55 PM EST 5 mLs Given 02/24/2014 8:05 PM EST 5 mLs vancomycin 1.5 g in sodium chloride 0.9% 250 mL 1,500 mg, Intravenous, EVERY 12 HOURS, First dose on 02/24/14 at 0330, Until Discontinued, Maximum infusion rate is 1 gram/hour. If flushing of the face, neck, upper body, arms, and/or back occurs decrease infusion rate by 50% to reduce the severity of symptoms. This medication may have an associated drug lab level. Please see MAR for scheduled level. This is 15mg/kg/dose q12h., Routine, Indication for (Active or Suspected): Skin/Skin Structure Given 02/24/2014 4:50 A M EST 1,500 mg vancomycin 1.5 g in sodium chloride 0.9% 250 mL 1,500 mg, Intravenous, EVERY 8 HOURS, First dose (after last modification) on 02/24/14 at 1300, Until Discontinued, Maximum infusion rate is 1 gram/hour. If flushing of the face, neck, upper body, arms, and/or back occurs decrease infusion rate by 50% to reduce the severity of symptoms. This medication may have an associated drug lab level. Please see MAR for scheduled level. This is 15mg/kg/dose q12h., Routine, Indication for (Active or Suspected): Skin/Skin Structure Given 02/25/2014 5:29 AM EST 1,500 mg Given 02/24/2014 9:40 PM EST 1,500 mg Given 02/24/2014 12:44 PM EST 1,500 mg vancomycin 2 g in sodium chloride 0.9% 500 mL 2,000 mg (2 g), Intravenous, EVERY 8 HOURS, First dose (after last modification) on 02/25/14 at 1300, Until Discontinued, Maximum infusion rate is 1 gram/hour. If flushing of the face, neck, upper body, arms, and/or back occurs decrease infusion rate by 50% to reduce the severity of symptoms. This medication may have an associated drug lab level. Please see MAR for scheduled level. This is 15mg/kg/dose q12h., Routine, Indication for (Active or Suspected): Skin/Skin Structure Given 02/26/2014 4:34 AM EST 2,000 mg Given 02/25/2014 9:01 PM EST 2,000 mg Given 02/25/2014 1:04 PM EST 2,000 mg documented in this encounter Active and Recently Administered Medications Times are shown in EST. Scheduled Medication Order 02/24/2014 02/25/2014 02/26/2014 docusate sodium (COLACE) capsule 100 mg 100 mg, Oral, 2 TIMES DAILY, First dose on 02/24/14 at 0915, Until Discontinued, Hold for diarhea, Routine 1200 (Not Given - Provider: Liana Holley RN - Reason: Patient/family refused)2100 (Not Given - Provider: Lucy Rios RN - Reason: Patient/family refused) 0900 (Not Given - Provider: Elizabet Wu RN - Reason: Patient/family refused)2100 (Not Given - Provider: Lucy Rios RN - Reason: Patient/family refused) 0900 (Not Given - Provider: Elizabet Wu RN - Reason: Patient/family refused) enoxaparin (LOVENOX) injection 40 mg 40 mg, Subcutaneous, EVERY 24 HOURS SCHEDULED (Daily), First dose on 02/24/14 at 1800, Until Discontinued, Routine 1802 (Given - Provider: Liana Holley RN) 0854 (Given - Provider: Elizabet Wu, NICKIE) 0804 (Given - Provider: Elizabet Wu, NICKIE) insulin aspart (novoLOG) VIAL injection 2-8 Units (CANCELED) 2-8 Units, Subcutaneous, EVERY 4 HOURS SCHEDULED, First dose on Wed02/23/14 at 2130, Until Discontinued, CORRECTION BOLUS Moderate BG 140 - 160 Give 2 units BG 161 - 200 Give 4 units BG 201 - 240 Give 6 units BG greater than 240, give 8 units and recheck BG in 2 hours. If BG remains greater than 240, repeat 8 units (no more than three times) & call for new basal insulin orders. If less than 240 after two hours, give no insulin and resume prior schedule. 0000 (Not Given - Provider: Lucy Rios RN - Reason: Order parameters not met)0450 (Given - Provider: Lucy L Drewes, RN)0815 (Given - Provider: Liana Holley RN)1244 (Given - Provider: Liana Holley RN)1727 (Given - Provider: Liana Holley RN)2016 (Given - Provider: Lucy Rios RN) 0002 (Given - Provider: Lucy Rios RN)0428 (Given - Provider: Lucy Rios RN)0751 (Given - Provider: Elizabet Wu RN)1210 (Given - Provider: Elizabet Wu RN)1650 (Given - Provider: Elizabet Wu RN)2052 (Given - Provider: Lucy Rios RN) 0023 (Given - Provider: Lucy Rios RN)0434 (Given - Provider: Lucy Rios RN)0805 (Given - Provider: Elizabet Wu RN)1207 (Given - Provider: Elizabet Wu RN) insulin aspart (novoLOG) VIAL injection 5 Units 5 Units, Subcutaneous, 3 TIMES DAILY BEFORE MEALS, First dose on Wed02/24/14 at 0730, Until Discontinued, MEAL ASSOCIATED Hold if not eating 0730 (Not Given - Provider: Liana Holley RN - Reason: See comment - Comment: did not eat breakfast)1244 (Given - Provider: Liana Holley RN)1728 (Given - Provider: Liana Holley RN) 0751 (Given - Provider: Elizabet Wu RN)1211 (Given - Provider: Elizabet Wu RN)1650 (Given - Provider: Elizabet Wu RN) 0805 (Given - Provider: Elizabet Wu RN)1208 (Given - Provider: Elizabet Wu RN) insulin glargine (LANTUS) VIAL injection 20 Units (CANCELED) 20 Units, Subcutaneous, NIGHTLY, First dose on Wed02/23/14 at 2345, Until Discontinued, Routine 2001 (Given - Provider: Lucy Rios RN) insulin glargine (LANTUS) VIAL injection 24 Units (CANCELED) 24 Units, Subcutaneous, NIGHTLY, First dose (after last modification) on Wed02/25/14 at 2100, Until Discontinued, Routine 2051 (Given - Provider: Lucy Rios RN) insulin glargine (LANTUS) VIAL injection 28 Units 28 Units, Subcutaneous, NIGHTLY, First dose (after last modification) on 02/26/14 at 2100, Until Discontinued, Routine lisinopril (PRINIVIL;ZESTRIL) tablet 10 mg 10 mg, Oral, DAILY, First dose on 02/24/14 at 0900, Until Discontinued, Hold for SBP<110, Routine 0814 (Given - Provider: Liana Holley RN) 0900 (Given - Provider: Elizabet Wu RN - Comment: updated order parameters) 0805 (Given - Provider: Elizabet Wu RN) nystatin (MYCOSTATIN) cream Topical, 2 TIMES DAILY, First dose on 02/24/14 at 0000, Until Discontinued 0000 (Not Given - Provider: Lucy Rios RN - Reason: Medication not available)0815 (Given - Provider: Liana Holley RN)2100 (Not Given - Provider: Lucy Rios RN - Reason: Patient/family refused) 0815 (Given - Provider: Elizabet Wu RN)2100 (Not Given - Provider: Lucy Rios RN - Reason: Patient/family refused) 0806 (Given - Provider: Elizabet Wu RN) piperacillin-tazobactam (ZOSYN) 3.375 g in dextrose 5% 50 mL 3.375 g, Intravenous, EVERY 8 HOURS, First dose on Wed02/23/14 at 2130, Until Discontinued, Administer over 4 Hours, Indication for (Active or Suspected): Skin/Skin Structure 0814 (Given - Provider: Liana Holley RN)1703 (Given - Provider: Liana Holley RN) 0002 (Given - Provider: Lucy Rios RN)0751 (Given - Provider: Elizabet Wu RN)1650 (Given - Provider: Elizabet Wu, NICKIE)2357 (Given - Provider: Lucy Rios RN) 0805 (Given - Provider: Elizabet Wu RN) senna (SENOKOT) tablet 8.6 mg 8.6 mg, Oral, 2 TIMES DAILY, First dose on 02/24/14 at 0915, Until Discontinued, Hold for diarhea, Routine 1200 (Not Given - Provider: Liana Holley RN - Reason: Patient/family refused)2099 (Not Given - Provider: Lucy Rios RN - Reason: Patient/family refused) 09 (Not Given - Provider: Elizabet Wu RN - Reason: Patient/family refused)2099 (Not Given - Provider: Lucy Rios RN - Reason: Patient/family refused) 09 (Not Given - Provider: Elizabet Wu RN - Reason: Patient/family refused) sodium chloride 0.9 % flush 5 mL (CANCELED) 5 mL, Intravenous, 2 TIMES DAILY, First dose on Wed02/23/14 at 2130, Until Discontinued, Routine 0900 (Not Given - Provider: Liana Holley RN - Reason: Contraindicated)2004 (Given - Provider: Lucy Rios RN) 899 (Not Given - Provider: Elizabet Wu RN - Reason: Order parameters not met - Comment: IV infusing)2054 (Given - Provider: Lucy Rios RN) 804 (Given - Provider: Elizabet Wu RN) vancomycin 1.5 g in sodium chloride 0.9% 250 mL (CANCELED) 1,500 mg, Intravenous, EVERY 12 HOURS, First dose on 02/24/14 at 0330, Until Discontinued, Maximum infusion rate is 1 gram/hour. If flushing of the face, neck, upper body, arms, and/or back occurs decrease infusion rate by 50% to reduce the severity of symptoms. This medication may have an associated drug lab level. Please see MAR for scheduled level. This is 15mg/kg/dose q12h., Routine, Indication for (Active or Suspected): Skin/Skin Structure 0450 (Given - Provider: Lucy Rios RN) vancomycin 1.5 g in sodium chloride 0.9% 250 mL (CANCELED) 1,500 mg, Intravenous, EVERY 8 HOURS, First dose (after last modification) on 02/24/14 at 1300, Until Discontinued, Maximum infusion rate is 1 gram/hour. If flushing of the face, neck, upper body, arms, and/or back occurs decrease infusion rate by 50% to reduce the severity of symptoms. This medication may have an associated drug lab level. Please see MAR for scheduled level. This is 15mg/kg/dose q12h., Routine, Indication for (Active or Suspected): Skin/Skin Structure 1244 (Given - Provider: Liana Holley RN)2140 (Given - Provider: Lucy Rios RN) 0529 (Given - Provider: Lucy Rios RN) vancomycin 2 g in sodium chloride 0.9% 500 mL(Linked Group 1) 2,000 mg (2 g), Intravenous, EVERY 8 HOURS, First dose (after last modification) on Wed02/25/14 at 1300, Until Discontinued, Maximum infusion rate is 1 gram/hour. If flushing of the face, neck, upper body, arms, and/or back occurs decrease infusion rate by 50% to reduce the severity of symptoms. This medication may have an associated drug lab level. Please see MAR for scheduled level. This is 15mg/kg/dose q12h., Routine, Indication for (Active or Suspected): Skin/Skin Structure 1304 (Given - Provider: Elizabet Wu RN)2101 (Given - Provider: Lucy Rios RN) 0434 (Given - Provider: Lucy Rios RN)1300 (Due) PRN Medication Order 02/24/2014 02/25/2014 02/26/2014 acetaminophen (TYLENOL) tablet 650 mg 650 mg, Oral, EVERY 6 HOURS PRN, Starting on Wed02/23/14 at 2101, Until Wed02/26/14 at 1530, Pain, Fever, Administer for temperature greater than or equal to 38.2 degrees celsius. Maximum daily dose of acetaminophen from all sources not to exceed 4,000 mg., Routine 0436 (Given - Provider: Lucy Rios RN) morphine 2 mg/mL carpuject 2 mg(Linked Group 2) 2 mg, Intravenous, EVERY 3 HOURS PRN, Starting on Wed02/23/14 at 2101, Until Wed02/26/14 at 1530, Pain, mild pain (1-3), May give an additional 2 mg in 30 minutes once if pain not relieved., Routine 0501 (See Alternative - Provider: Lucy Rios RN)2005 (See Alternative - Provider: Lucy Rios, NICKIE) 1304 (Given - Provider: Elizabet Wu RN - Comment: premedicate for wound dsg change)1649 (See Alternative - Provider: Elizabet Wu RN)2100 (Given - Provider: Lucy Rios RN) morphine 4 mg/mL carpuject 4 mg (CANCELED)(Linked Group 2) 4 mg, Intravenous, EVERY 3 HOURS PRN, Starting on Wed02/23/14 at 2101, Until Wed02/26/14 at 1530, Pain, moderate pain (4-6), May give an additional 2 mg in 30 minutes once if pain not relieved., Routine 050 (Given - Provider: Lucy Rios RN)2005 (Given - Provider: Lucy Rios RN) 1304 (See Alternative - Provider: Elizabet Wu RN)1649 (Given - Provider: Elizabet Wu RN)2100 (See Alternative - Provider: Lucy Rios RN) ondansetron (ZOFRAN) tablet 4 mg(Linked Group 3) 4 mg, Oral, EVERY 8 HOURS PRN, Starting on Wed02/23/14 at 2101, Until Wed02/26/14 at 1530, Nausea, Vomiting, If multiple antiemetics are ordered, use ondansetron first. PO Preferred. If patient unable to take PO, may give IV if ordered. May repeat times one in 45 minutes if ineffective. If unable to take PO, may give IV., Routine polyethylene glycol (MIRALAX) packet 17 g 17 g, Oral, DAILY PRN, Starting on Wed02/23/14 at 2101, Until Wed02/26/14 at 1530, Constipation, Administer if needed per patient's routine or if no bowel movement within 48 hours to achieve: 1) One bowel movement at least every 48 hours, AND 2) Without straining. If multiple bowel medications ordered, consider polyethylene glycol(MIRALAX) first., Routine Linked Groups Order Group 1: vancomycin 2 g in sodium chloride 0.9% 500 mLJump to med 2,000 mg (2 g), Intravenous, EVERY 8 HOURS, First dose (after last modification) on Wed02/25/14 at 1300, Until Discontinued, Maximum infusion rate is 1 gram/hour. If flushing of the face, neck, upper body, arms, and/or back occurs decrease infusion rate by 50% to reduce the severity of symptoms. This medication may have an associated drug lab level. Please see MAR for scheduled level. This is 15mg/kg/dose q12h., Routine, Indication for (Active or Suspected): Skin/Skin Structure And Vancomycin, trough (CANCELED) New collection, Timed, PRN, Starting on Wed02/25/14 at 1151, Until Specified And Vancomycin Level - MAR Order Reminder (CANCELED) NOT APPLICABLE, PER PHARMACY, Other, Starting on Wed02/25/14 at 1500, Until Wed02/26/14 at 1530, This alert will be scheduled by a pharmacist after order placement. This order is a reminder to nursing staff to release and draw the PRN drug level at the specified time. It may be necessary to contact phlebotomy 60 minutes prior to the scheduled due time to assure a timely blood draw. Group 2: morphine 2 mg/mL carpuject 2 mgJump to med 2 mg, Intravenous, EVERY 3 HOURS PRN, Starting on Wed02/23/14 at 2101, Until Wed02/26/14 at 1530, Pain, mild pain (1-3), May give an additional 2 mg in 30 minutes once if pain not relieved., Routine Or morphine 4 mg/mL carpuject 4 mg (CANCELED)Jump to med 4 mg, Intravenous, EVERY 3 HOURS PRN, Starting on Wed02/23/14 at 2101, Until Wed02/26/14 at 1530, Pain, moderate pain (4-6), May give an additional 2 mg in 30 minutes once if pain not relieved., Routine Or morphine 10 mg/mL carpuject 6 mg (CANCELED) 6 mg, Intravenous, EVERY 3 HOURS PRN, Starting on Wed02/23/14 at 2101, Until Wed02/26/14 at 1530, Pain, severe pain (7-10), May give an additioinal 2 mg in 30 minutes once if pain not relieved., Routine Group 3: ondansetron (ZOFRAN) tablet 4 mgJump to med 4 mg, Oral, EVERY 8 HOURS PRN, Starting on Wed02/23/14 at 2101, Until 02/26/14 at 1530, Nausea, Vomiting, If multiple antiemetics are ordered, use ondansetron first. PO Preferred. If patient unable to take PO, may give IV if ordered. May repeat times one in 45 minutes if ineffective. If unable to take PO, may give IV., Routine Or ondansetron (ZOFRAN) injection 4 mg (CANCELED) 4 mg, Intravenous, EVERY 8 HOURS PRN, Starting on Wed02/23/14 at 2101, Until 02/26/14 at 1530, Nausea, May repeat times one in 30 minutes if ineffective. If multiple antiemetics are ordered, give ondansetron first. documented in this encounter Care Teams Associate Professor Of Biostatistics Relationship Specialty Start Date End Date Valerie Billings MD [facility] [address] [place] [address] [place] [address] PCP - General 01/07/10 02/24/21 documented as of this encounter
--- OUTSIDE RECORDS SUMMARY | 2023-12-01 16:03 | XMS_ITS | Encounter Summary ---
[place] [address] Care Team Providers Care Director Work Name Role Phone Weston Tobias Primary Care Provider [phone] Reason for Referral * Diagnostic Test (Routine) - Closed Specialty Diagnoses / Procedures Referred By Contac t Referred To Contact Radiology Diagnoses Airway obstruction Procedures NM PET CT Standard Plus Head and Neck Mulugeta Harman DO [address] [place] [address] [place] [address] Referral ID Status Reason Start Date Expiration Date V isits Requested Visits Authorized [id number] Closed Specialty Service Requested 03/27/2021 09/21/2021 1 1 Reason for Visit * Diagnostic Test (Routine) - Closed Specialty Diagnoses / Procedures Referred By Contac t Referred To Contact Radiology Diagnoses Airway obstruction Procedures NM PET CT Standard Plus Head and Neck Mulugeta Harman DO [address] [place] [address] [place] [address] Referral ID Status Reason Start Date Expiration Date V isits Requested Visits Authorized [id number] Closed Specialty Service Requested 03/27/2021 09/21/2021 1 1 Encounter Details Date Type Department Care Team (Late st Contact Info) Description 03/31/2021 7:42 AM EST - 03/31/2021 11:59 PM EST Hospital Encounter [place] [phone] Mulugeta Harman, DO [address] [place] [address] Airway obstruction Discharge Disposition: Home Social History Tobacco Use [...] PM EST Office Visit Radiation Oncology at [address] [phone] Ag Cruz MD [facility] DR [place] [address] documented as of this encounter Procedures Procedure Name Priority Date/Time Associated Diagnosis Comments NM PET CT STANDARD PLUS HEAD AND NECK Routine 03/31/2021 9:14 AM EST Airway obstruction POCT GLUCOSE Routine 03/31/2021 7:51 AM EST POCT GLUCOSE Routine 03/31/2021 7:49 AM EST documented in this encounter Results * NM [...] who have questions please contact the health hourly caregiver that requested your imaging first. ? 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 Small FDG avid lymph node in the [...] patients who have questions please contactthe health hourly caregiver that requested your imaging first. Electronically signed by: Stu Rosario MD, [facility]([phone]), at 03/31/2021 1:48 PM Mulugeta Harman DO IMG PET ORDERAB LES * POCT Glucose (03/31/2021 7:51 AM EST) Glucose, POC 66 65 - 199 mg/dL [facility] Comment: Supplemental ranges: <140 mg/dL before meals <180 mg/dL all other times of the day Blood 03/31/2021 7:51 AM EST 03/31/2021 7:51 AM EST Mulugeta Harman DO POINT OF CARE T EST ORDERABLES Performing Organization Address [facility] Co de Phone Number [facility] [place] [address] * (ABNORMAL) POCT Glucose (03/31/2021 7:49 AM EST) Glucose, POC 55(L) 65 - 199 mg/dL [facility] Comment: Supplemental ranges: <140 mg/dL before meals <180 mg/dL all other times of the day Blood 03/31/2021 7:49 AM EST 03/31/2021 7:49 AM EST Mulugeta Harman DO POINT OF CARE T EST ORDERABLES Performing Organization Address [facility] [place] [address] documented in this encounter Visit Diagnoses Diagnosis Airway obstruction Other diseases of respiratory system, not elsewhere classified documented in this encounter Care Teams Director Work Relationship Specialty Start Date End Date Weston Tobias PA [address] [place] [address] PCP - General Family Medicine 02/25/21 documented as of this encounter
[2023-12-01 19:20] LABS: Vitamin D 25 Total 9.2 ng/mL (30-100)
[2023-12-05 10:38] LABS: Testosterone, Total 214 ng/dL (240-950)
== END 2023-12-01 15:57 | disposition home or self-care (01) ==
LOC: NCHCN 15:56
PROVIDERS: PCP Physician Assistant Medical; Visit Provider Physician Assistant Medical
DX: F52.21 Male erectile disorder (principal); F32.A Depression, unspecified
CPT/HCPCS: 82306; 84403

== ENCOUNTER 2024-01-25 15:42 | Outpatient (REF) | payer BC, MEDICAID, SELFPAY ==
[2024-01-25 18:33] LABS: Abs Immature Grans 0.06 10^3/uL (0.0-0.06); Absolute Basophil Count 0.11 10^3/uL (0.0-0.2); Absolute Lymphocyte Count 1.18 10^3/uL (1.2-3.4); Absolute Monocyte Count 0.53 10^3/uL (0.1-0.8); Absolute Neutrophil Count 7.01 10^3/uL (1.2-6.7); Basophils % 1.2 %; Eosinophils % 3.3 %; HCT 47.2 % (40.0-50.0); HGB 15.2 g/dL (13.5-17.5); Immature Grans % 0.7 %; Lymphocytes % 12.8 %; MCHC 32.2 % (32.0-36.0); MCV 84 fL (80-95); MPV 9.2 fL (8.0-11.0); Monocytes % 5.8 %; Neutrophils % 76.2 %; Platelet Count 266 10^3/uL (130-400); RBC 5.62 10^6/uL (4.36-5.78); RDW 15.7 % (11.8-14.1); RDW-SD 47.7 fL; WBC 9.19 10^3/uL (4.4-10.8)
[2024-01-25 18:39] LABS: ESR 47 mm/hr (0-20)
[2024-01-25 19:08] LABS: ALT 23 U/L (16-63); AST 19 U/L (15-37); Albumin 3.8 g/dL (3.4-5.0); Alkaline Phosphatase 70 U/L (46-116); Anion Gap 6.3 mmol/L (3-11); BUN 20 mg/dL (7-18); Bilirubin, Total 0.58 mg/dL (0.2-1.0); C-Reactive Protein 0.98 mg/dL (<or=0.5); CO2 33.7 mmol/L (21.0-32.0); CREATININE 1.2 mg/dL (0.70-1.30); Calcium 9.1 mg/dL (8.5-10.1); Chloride 100 mmol/L (98-107); Estimated GFR 73.22 (mL/min/1.73m2); Glucose 202 mg/dL (74-106); Potassium 3.7 mmol/L (3.5-5.1); Sodium 140 mmol/L (136-145); Total Protein 7.9 g/dL (6.4-8.2); Vitamin D 25 Total 23.6 ng/mL (30-100)
[2024-01-25 19:16] LABS: Uric Acid 6.4 mg/dL (3.5-7.2)
== END 2024-01-25 15:43 | disposition home or self-care (01) ==
LOC: NCHCN 15:42
PROVIDERS: PCP Physician Assistant Medical; Visit Provider Physician Assistant Medical
DX: E55.9 Vitamin D deficiency, unspecified (principal); M79.675 Pain in left toe(s)
CPT/HCPCS: 80053; 82306; 85652; 84550; 85025; 86140

== ENCOUNTER 2024-04-17 12:35 | Outpatient (REF) | payer BC, MEDICAID, SELFPAY ==
[2024-04-17 17:06] LABS: Hemoglobin A1C 7.7 % (<5.7)
[2024-04-17 17:30] LABS: ALT 23 U/L (16-63); AST 22 U/L (15-37); Albumin 3.6 g/dL (3.4-5.0); Alkaline Phosphatase 59 U/L (46-116); Anion Gap 9.8 mmol/L (3-11); BUN 19 mg/dL (7-18); Bilirubin, Total 0.58 mg/dL (0.2-1.0); CO2 30.2 mmol/L (21.0-32.0); CREATININE 0.9 mg/dL (0.70-1.30); Calcium 9.2 mg/dL (8.5-10.1); Calculated LDL 30 mg/dL (<100); Chloride 102 mmol/L (98-107); Cholesterol 101 mg/dL (<200); Glucose 218 mg/dL (74-106); HDL Cholesterol 44 mg/dL (>or=40); Sodium 142 mmol/L (136-145); Triglyceride 137 mg/dL (<150); Vitamin D 25 Total 21.7 ng/mL (30-100)
== END 2024-04-17 12:36 | disposition home or self-care (01) ==
LOC: NCHCN 12:35
PROVIDERS: PCP Physician Assistant Medical; Visit Provider Physician Assistant Medical
DX: I63.9 Cerebral infarction, unspecified (principal); E11.9 Type 2 diabetes mellitus without complications; E55.9 Vitamin D deficiency, unspecified
CPT/HCPCS: 80053; 80061; 82306; 83036

== ENCOUNTER 2024-07-18 14:51 | Outpatient (REF) | payer MEDICARE, MEDICAID, SELFPAY ==
[2024-07-18 16:06] LABS: Vitamin D 25 Total 29 ng/mL (30-100)
== END 2024-07-18 14:52 | disposition home or self-care (01) ==
LOC: NCHCN 14:51
PROVIDERS: PCP Physician Assistant Medical; Visit Provider Physician Assistant Medical
DX: E03.9 Hypothyroidism, unspecified (principal); E55.9 Vitamin D deficiency, unspecified
CPT/HCPCS: 82306; 84443

== ENCOUNTER 2024-12-29 02:35 | Outpatient (CLI) | payer MEDICARE, MEDICAID, SELFPAY ==
[2024-12-29 10:53] LABS: Abs Immature Grans 0.07 10^3/uL (0.0-0.06); HCT 42.8 % (40.0-50.0); HGB 13.8 g/dL (13.5-17.5); Immature Grans % 0.7 %; MCH 27.2 pg (27.0-33.0); MCHC 32.2 % (32.0-36.0); MCV 84 fL (80-95); MPV 8.5 fL (8.0-11.0); Platelet Count 246 10^3/uL (130-400); RBC 5.08 10^6/uL (4.36-5.78); RDW 14.6 % (11.8-14.1); RDW-SD 44.9 fL; WBC 10.68 10^3/uL (4.4-10.8)
[2024-12-29 11:09] LABS: LDH 154 U/L (120-246)
[2024-12-29 11:10] LABS: ALT 15 U/L (10-49); AST 17 U/L (<34); Albumin 4.7 g/dL (3.4-5.0); Alkaline Phosphatase 62 U/L (46-116); Anion Gap 7.8 mmol/L (3-11); BUN 21 mg/dL (9-23); Bilirubin, Total 0.80 mg/dL (0.2-1.2); CO2 32.2 mmol/L (20.0-31.0); Calcium 9.0 mg/dL (8.3-10.6); Chloride 99 mmol/L (98-107); Glucose 158 mg/dL (74-106); Potassium 3.7 mmol/L (3.5-5.1); Sodium 139 mmol/L (136-145); Total Protein 8.2 g/dL (5.7-8.2)
[2024-12-29 11:22] LABS: TSH 4.06 uIU/mL (0.55-4.78)
== END 2024-12-29 02:36 | disposition home or self-care (01) ==
LOC: LBO 02:36
PROVIDERS: PCP Physician Assistant Medical
DX: Z79.899 Other long term (current) drug therapy (principal)
CPT/HCPCS: 36415; 80053; 83615; 84439; 84443; 85025

== ENCOUNTER 2025-01-26 08:19 | Outpatient (CLI) | payer MEDICARE, MEDICAID, SELFPAY ==
[2025-01-26 12:39] LABS: Abs Immature Grans 0.09 10^3/uL (0.0-0.06); HCT 43.1 % (40.0-50.0); HGB 13.9 g/dL (13.5-17.5); Immature Grans % 1.1 %; MCH 27.1 pg (27.0-33.0); MCHC 32.3 % (32.0-36.0); MCV 84 fL (80-95); MPV 8.9 fL (8.0-11.0); Platelet Count 263 10^3/uL (130-400); RBC 5.12 10^6/uL (4.36-5.78); RDW 14.2 % (11.8-14.1); RDW-SD 43.0 fL; WBC 8.27 10^3/uL (4.4-10.8)
[2025-01-26 13:13] LABS: ALT 17 U/L (10-49); AST 18 U/L (<34); Albumin 4.5 g/dL (3.2-5.0); Alkaline Phosphatase 67 U/L (46-116); Anion Gap 10.7 mmol/L (3-11); BUN 19 mg/dL (9-23); Bilirubin, Total 0.3 mg/dL (0.2-1.2); CO2 30.3 mmol/L (20.0-31.0); Calcium 9.0 mg/dL (8.3-10.6); Chloride 100 mmol/L (98-107); Glucose 227 mg/dL (74-106); Potassium 3.6 mmol/L (3.5-5.1); Sodium 141 mmol/L (136-145); Total Protein 8.2 g/dL (5.7-8.2)
[2025-01-26 13:16] LABS: TSH 2.46 uIU/mL (0.55-4.78)
[2025-01-26 23:56] LABS: LDH 197 U/L (120-246)
== END 2025-01-26 08:20 | disposition home or self-care (01) ==
PROVIDERS: PCP Physician Assistant Medical
DX: Z79.899 Other long term (current) drug therapy (principal); C44.92 Squamous cell carcinoma of skin, unspecified; Z29.89 Encounter for other specified prophylactic measures
CPT/HCPCS: 36415; 80053; 83615; 84439; 84443; 85025